=== PATIENT | male | born 1950 | race Caucasian/White ===

== ENCOUNTER → 2017-07-24 13:17 | Outpatient (POV) | payer MEDICARE, SELFPAY | PROVIDERS: Visit Provider Dermatology | DX: Z00.00 Encounter for general adult medical examination without abnormal findings (principal) ==

== ENCOUNTER → 2018-12-28 16:15 | Outpatient (CLI) | payer MEDICARE, SELFPAY ==
[2018-12-28 17:24] LABS: Anion Gap 14.4 mEq/L (5-15); Blood Urea Nitrogen 19 mg/dL (7-18); Calcium 9.3 mg/dL (8.5-10.1); Carbon Dioxide 27 mmol/L (21.0-32.0); Chloride 105 mmol/L (98-107); Creatinine,Serum 1.22 mg/dL (0.70-1.30); Estimated Glomerular Filt Rate 59 ml/min (>60); GFR (African American) 72 ML/MIN (>60); Glucose 150 mg/dL (74-106); Potassium 4.4 mmoL/L (3.5-5.1); Sodium 142 mmol/L (136-145)
== END ==
PROVIDERS: Visit Provider Nurse Practitioner
DX: E87.5 Hyperkalemia (principal)
CPT/HCPCS: 36415; 80048

== ENCOUNTER → 2020-04-25 07:03 | Outpatient (CLI) | payer MEDICARE, SELFPAY ==
--- NOTE | 2020-04-25 | CA_ITS ---
APPROVED REPORT Exam: Pharmacologic Technologist: Ana Rosa Vance Ht: 5 ft 10 in Wt: 204 lbs BSA: 2.10 m2 HR: 64 bpm BP: 140/79 mmHg Indications: Abnormal EKG Medical History Medications: Lisinopril,,,,, Aspirin,,,,, Stress Test Details Test: LEXISCAN HR Resting HR: 67 bpm Max Heart Rate (APMHR): 152 bpm Max HR Achieved: 127 bpm Target HR (85% APMHR): 129 bpm % of APMHR: 83 Recovery HR: 71 bpm BP Resting BP: 140.0/79.0 mmHg Max BP: 165.0/96.0 mmHg Recovery BP: 135.0/83.0 mmHg ECG Clinical Exercise duration: 04:00 min Highest Stage Achieved: Stress ECG Conclusion Resting EKG: Normal sinus rhythm, right axis deviation, LPFB Symptoms: Mild shortness of air and malaise. Arrhythmias/Ectopy: None ST-T Changes: No significant changes. Conclusion: Unremarkable Lexiscan stress. Myoview images reported separately. Test Summary RECOVERY 03:21 . . 72 . 135/ 83 . . REST 05:41 . . 67 . 140/ 79 . . Stage 1 . . . . . . . Myoview Injected Stage 1 01:00 . . 120 . . . . Stage 2 01:00 . . 112 . 162/ 93 . . Stage 3 01:00 . . 91 . 165/ 96 . . Stage 4 01:00 . . 80 . 153/ 90 . Stop exercise at 04:00 RECOVERY 01:00 . . 77 . 144/ 81 . . RECOVERY 02:00 . . 74 . 144/ 81 . . RECOVERY 03:00 . . 73 . 135/ 83 . . RECOVERY 03:21 . . 72 . 135/ 83 . . Electronically signed by : Josh Melendez, 04/26/2020 06:19:03
--- NOTE | 2020-04-25 07:03 | NM_ITS ---
APPROVED REPORT Exam: Nuclear Stress Test Indication: Abnormal EKG, SOB, Syncope, HTN, Family history Patient Location: Outpatient Stress Tech: Ana Rosa Vance LA Tech:Lise Alcantar, ARRT, RT (R)(N) Ht: 5 ft 10 in Wt: 204 lbs HR: 64 bpm BP: 140/79 mmHg BSA: 2.10 m2 BMI: 29.2 History: Abnormal EKG, SOB, Syncope, HTN, Family history Procedure: Patient received a 0.4 mg of intravenous Lexiscan, resting heart rate 64 bpm, resting blood pressure 140/79 mmHg, with Lexiscan maximum heart rate achived was 95 bpm which is Less than 85 % of the maximum predicted heart rate and blood pressure was 165/96 mmHg. With Lexiscan, patient denied any complaint of chest pain. Electrocardiogram Resting electrocardiogram showed sinus rhythm nonspecific ST-T changes, with Lexiscan there is less than 1.[address] segment depression noted from the baseline EKG. The EKG portion of the Lexiscan is nondiagnostic. Cardiac Stress and Resting SPECT Images: Cardiac Stress and Resting SPECT images were obtained using technetium 99m Myoview 30.3 mCi stress and 10.12 mCi at rest. Gated SPECT for analysis of segmental wall motion and calculation of the ejection fraction also done. Cardiac stress and resting SPECT images show moderate size reversible ischemia involving the anterior apical wall, computer derived ejection fraction 53% with moderate anterior apical wall hypokinesis. Right ventricle is normal size and contractility. Conclusion: 1. The EKG portion of the Lexiscan is nondiagnostic. 2. Scintigraphic evidence of moderate-sized area of reversible ischemia involving the anterior apical wall, computer derived ejection fraction 53% with segmental wall motion abnormality described above, right ventricle is normal size and contractility. 3. Abnormal Lexiscan Myoview study. Electronically signed by : Josh Melendez, 04/26/2020 06:29:41
--- NOTE | 2020-04-25 07:57 | CA_ITS ---
APPROVED REPORT EXAM: Comprehensive 2D, Doppler, and color-flow Echocardiogram Linen Room Custodian: Britni Johnson, RT(R) Ht: 5 ft 10 in Wt: 204lbs BSA: 2.10 BP: 138/82 mmHg Indications: HTN, SOB, GONZALEZ, dizziness, hx of CVA 2D Dimensions LVOT 2.20 cm (M/F) 1.5-2.5 M-Mode Dimensions RVDd 3.58 cm (0.9-2.6) LA Diam 3.79 cm (1.9-4.0) LVDd 4.10 cm (3.5-5.7) Ao Diam 2.54 cm (2.0-3.7) LVDs 3.14 cm (3.5-5.7) IVSd 1.05 cm (0.6-1.1) PWd 0.80 cm (0.6-1.1) EF (Teich) 47.30% FS 23.40% EDV (Teich) 74.20 mL ESV (Teich) 39.10 mL LV Diastology E Decel Time 150.00 (160-240 msec) E/A Ratio 0.6 MED E' 6.00 (< 7 cm/sec) E'/MED E' Ratio 8.57 (>14) LAT E' 6.10 (<10 cm/sec) E/LAT E' Ratio 8.43 (>14) Mitral Valve MV E Max Joseph. 51.00 (40-130 cm/s) MV A Velocity 79.00 (40-130 cm/s) E/A Ratio 0.65 MV Decel. Time 150.00 (160-240 ms) MV PHT 44.00 ms Tricuspid Valve TR P. Velocity 248.00 cm/s RAP Estimate 15.00 mmHg RVSP 39.60 mmHg Left Ventricle Left atrium is mildly enlarged, left ventricle is normal size, mild concentric left ventricular hypertrophy seen, visually estimated ejection fraction 55% with no regional wall motion abnormality, grade 1 diastolic dysfunction seen without tissue Doppler evidence of raise left atrial pressure. Right Ventricle Right atrium and right ventricle are normal size and contractility. Aortic Valve Aortic valve is thickened and calcified leaflet chordae display good mobility, there is no aortic stenosis or aortic insufficiency. Mitral Valve Mitral valve is grossly normal, there is mild mitral regurgitation. Tricuspid Valve Tricuspid valve grossly normal, there is mild tricuspid regurgitation, tricuspid regurgitation jet velocity is inadequate for calculation of the right ventricular systolic pressure. Pulmonic Valve Pulmonic valve is poorly visualized. Great Vessels Aortic root is normal size. Pericardium No significant pericardial effusion noted. Conclusion 1. Mildly enlarged left atrium, normal left ventricular size, mild concentric left ventricular hypertrophy, visually estimated ejection fraction 55% with no regional wall motion abnormality, grade 1 diastolic dysfunction seen without tissue Doppler evidence of raise left atrial pressure. 2. Thickened and calcified aortic valve without aortic stenosis or aortic insufficiency. 3. Mild mitral and tricuspid regurgitation. 4. No significant pericardial effusion noted. Electronically signed by : Josh Melendez, 04/26/2020 05:56:45
--- NOTE | 2020-04-25 09:15 | HMH.ITSHM ---
Current Home Medications as stated by this patient Derrick Roach or retail representative. []ASA LISINOPRIL
== END ==
PROVIDERS: PCP Nurse Practitioner Family; Visit Provider Physician Assistant
DX: I10 Essential (primary) hypertension (principal); R06.00 Dyspnea, unspecified; R42 Dizziness and giddiness; R55 Syncope and collapse; R94.31 Abnormal electrocardiogram [ECG] [EKG]
CPT/HCPCS: 78452; 93017; 93306; A9502; J2785

== ENCOUNTER → 2020-05-02 11:56 | Outpatient (CLI) | payer MEDICARE, SELFPAY ==
[2020-05-02 12:44] LABS: Basophils # 0.1 K/mm3 (0-0.2); Basophils % 0.7 % (0.1-2.0); Eosinophils # 0.1 K/mm3 (0.0-0.4); Eosinophils % 1.9 % (0.1-12.0); Hematocrit 52.6 % (42.0-52.0); Hemoglobin 17.5 g/dL (14.1-18.0); Lymphocytes # 1.4 K/mm3 (0.7-4.5); Lymphocytes % 19.3 % (10-50); Mean Corpuscular HGB Conc 33.2 g/dL (31.8-35.4); Mean Corpuscular Hemoglobin 32.1 pg (27.0-31.2); Mean Corpuscular Volume 96.4 fl (80-94); Mean Platelet Volume 8.2 fl (7.4-10.4); Monocytes # 0.4 K/mm3 (0.1-1.0); Monocytes % 5.6 % (1.7-9.3); Neutrophils # 5.2 K/mm3 (1.8-7.8); Neutrophils % 72.5 % (37.0-80.0); Platelet Count 163 K/mm3 (142-424); Red Blood Count 5.46 M/mm3 (4.60-6.20); Red Cell Distribution Width 13.6 % (11.5-17.5); White Blood Count 7.2 K/mm3 (4.8-10.8)
[2020-05-02 13:23] LABS: Chloride 99 mmol/L (98-107); Potassium 4.9 mmoL/L (3.5-5.1); Sodium 136 mmol/L (136-145)
[2020-05-02 13:26] LABS: Anion Gap 17.9 mEq/L (5-15); Blood Urea Nitrogen 24 mg/dl (9-20); Calcium 9.7 mg/dl (8.4-10.2); Carbon Dioxide 24 mmol/L (22.0-30.0); Estimated Glomerular Filt Rate 67 ml/min (>60); GFR (African American) 81 ML/MIN (>60)
[2020-05-02 13:32] LABS: Glucose 450 mg/dl (74-100)
[2020-05-02 13:58] LABS: Coronavirus 19 IgG Antibody Negative (Negative); Coronavirus 19 IgM Antibody Negative (Negative)
== END ==
PROVIDERS: Visit Provider Physician Assistant
DX: R94.31 Abnormal electrocardiogram [ECG] [EKG] (principal); R94.39 Abnormal result of other cardiovascular function study; Z01.818 Encounter for other preprocedural examination; Z03.818 Encounter for observation for suspected exposure to other biological agents ruled out
CPT/HCPCS: 36415; 80048; 85025; 86328

== ENCOUNTER 2020-05-04 08:05 | Day surgery (SDC) | payer MEDICARE, SELFPAY ==
[2020-05-04] VITALS (12 sets, daily range): BP systolic 101–168; BP diastolic 61–95; PULSE 63–79; RESP 16–18; TEMP 36.6; O2SAT 91–96; BMI 29.2
--- NOTE | 2020-05-04 07:02 | IR_ITS ---
APPROVED REPORT Patient Location: Outpatient Health And Safety Director: MRACIA Albrecht RT (R) PROCEDURES Selective coronary angiogram INDICATION Abnormal Myoview, Angina pectoris Informed consent was obtained prior to the procedure. COMPLICATIONS None Estimated Blood Loss: less than 10ml TECHNIQUE One percent lidocaine used to anesthetize the right anterior aspect of the wrist. The right radial artery was accessed via the Seldinger technique. A 6 Croatian sheath was placed in the right radial artery. 2.5 mg of verapamil, 800 mcg of nitroglycerin, 1mg Lidocaine and 5000 U Heparin were given through the arterial sheath. The trap catheter was also used to perform left heart catheterization, left ventriculogram and selective coronary angiogram. At the end of the procedure the sheath was removed good hemostasis was achieved using Traclet band, patient was transferred to the postop holding area in stable condition. ANGIOGRAPHIC RESULTS The left main artery Normal The left anterior descending artery Has proximal 20% stenoses. Beginning the mid section there are 30 and 40% stenoses followed by a concentric 80% 15 mm tandem stenosis and a vessel that is 2 mm in diameter. Distally as the LAD approaches the apex greater than 90% stenosis is present. Distal to the stenosis the vessel hits the apex. It appears as though some left to left collaterals may be forming apically from a large circumflex artery The circumflex artery Is a dominant vessel and gives rise to a 2 mm ramus intermedius which is diseased at its ostium and then has a proximal 90% stenosis. This is a 2 mm vessel and moderate in size. The vessel is tortuous and has mid vessel 40% stenoses. The right coronary artery Is nondominant yet still a large vessel and has mid vessel 40 to 50% stenoses. The ORTEZ ventriculogram reveals Not performed The left ventricular end-diastolic pressure Not measured IMPRESSION Severe mid and distal LAD stenosis as described in segments which are 2 mm and less in diameter. Severe stenosis in a proximal 2 mm moderate sized ramus intermedius in which moderate disease extends back into the ostium of the ramus intermedius. Moderate disease in the right coronary PLAN 1. I recommend medical management at this time. The LAD midportion could theoretically be stented but I do not recommend it. Distally the severe stenosis would jeopardize flow through the mid LAD stent and increase the risk of stent thrombosis. It appears as though patient is already forming collaterals from the circumflex artery. 2. The distal LAD should never be touched percutaneously 3. The ramus intermedius theoretically could also be stented however the left main artery perfectly trifurcates into the large LAD large circumflex artery with the ramus intermedius perfectly originating in between these 2 great vessels. Stenting the ramus intermedius appropriately would cause plaque shift and jeopardize the LAD and circumflex artery. 4. Cardiac rehabilitation and physical therapy along with aggressive medical management is most warranted for this patient. I believe with statin therapy with a goal LDL less than 55 along with beta-blockers NEMESIO inhibitors etc. combined with a low impact cardiac regimen patient can appropriately collateralized the LAD and probably the ramus intermedius 5. Patient's anatomy does not provide for bypass surgery either due to the distal nature of the disease 6. Avoidance of tobacco products Electronically signed by : Miguel Hubbard, 05/04/2020 10:43:45
== END 2020-05-04 13:32 | disposition home or self-care (01) ==
PROVIDERS: PCP Nurse Practitioner Family; Visit Provider Internal Medicine
DX: R06.00 Dyspnea, unspecified (principal); R94.39 Abnormal result of other cardiovascular function study; I25.118 Atherosclerotic heart disease of native coronary artery with other forms of angina pectoris; I10 Essential (primary) hypertension; E11.9 Type 2 diabetes mellitus without complications; E78.5 Hyperlipidemia, unspecified; Z79.82 Long term (current) use of aspirin; Z79.84 Long term (current) use of oral hypoglycemic drugs; Z79.899 Other long term (current) drug therapy
CPT/HCPCS: 93458; 99152; C1725; C1769; J1644; Q9967

== ENCOUNTER 2020-05-23 09:08 | Outpatient (RCR) | payer MEDICARE, SELFPAY | END 2020-09-06 09:43 | disposition home or self-care (01) | LOC: PT 09:08 | PROVIDERS: Visit Provider Internal Medicine | DX: I25.10 Atherosclerotic heart disease of native coronary artery without angina pectoris (principal) | CPT/HCPCS: 93798 ==

== ENCOUNTER → 2020-05-24 14:31 | Outpatient (CLI) | payer MEDICARE, SELFPAY ==
[2020-05-24 16:04] VITALS: BMI 27.1
== END ==
PROVIDERS: PCP Family Medicine; Visit Provider Family Medicine
DX: Z71.3 Dietary counseling and surveillance (principal); E11.9 Type 2 diabetes mellitus without complications
CPT/HCPCS: 97802

== ENCOUNTER 2020-11-05 13:43 | Emergency (ER) | payer MEDICARE, SELFPAY ==
[2020-11-05 15:00] VITALS: BP 102/64; PULSE 58; RESP 19; TEMP 36.6; O2SAT 99; BMI 27.1
--- NOTE | 2020-11-05 15:08 | XR_ITS ---
PROCEDURE INFORMATION: Exam: XR Lumbosacral Spine Exam date and time: 11/05/2020 3:08 PM Age: 70 years old Clinical indication: Injury or trauma; Sprain or strain, lumbar ligaments; Patient HX: Low back pain after lifting yesterday. ; Additional info: Injured back lifting TECHNIQUE: Imaging protocol: XR of the lumbosacral spine. Views: 2 or 3 views. COMPARISON: No relevant prior studies available. FINDINGS: Bones/joints: Normal anatomic alignment. Vertebral body heights are well preserved. There is no significant disc space narrowing. Multilevel anterior osteophytes are appreciated. The spinal canal is patent. No aggressive osseous lesions. Soft tissues: There is no significant soft tissue swelling. Other findings: There is no evidence of acutely displaced fractures. There is no evidence of joint dislocation. IMPRESSION: Negative for acute skeletal pathology.
--- NOTE | 2020-11-05 15:58 | HMH.EDUTC ---
[facility] Disposition Clinical Impression: Low back pain Qualifiers: Chronicity: unspecified Back pain laterality: unspecified Sciatica presence: without sciatica Qualified Code(s): M54.5 - Low back pain Disposition: Home, Self-Care Condition on Discharge: Good Instructions: Low Back Pain, DI for Low Back Pain, Methocarbamol, DI for Muscle Spasm Additional Instructions: *Ibuprofen cassie 6 hours with meal as needed for pain/inflammation if your Doctor has told you that you can take it *Not additional anti-inflammatory like motrin, aleve, advil with the above amount of ibuprofen. You can still take Tylenol every 4 hours as needed if you need something else for pain *Ice 20 minutes every 2 hours for the first 48 hours after the initial injury followed by moist heat every 20 minutes 3-4 times a day to affected area *Muscle relaxer as prescribed as needed for muscle spasms but remember, it WILL cause drowsiness You cannot take it and drive, operate machinery or care for small children. *Keep this area active, no movement leads to more stiffness, However take it easy and avoid heavy lifting pushing or pulling *Follow up with you family doctor if no improvement for further treatment Prescriptions: methocarbamoL [Methocarbamol 500mg Tablet] 500 mg PO BID PRN #15 tab PRN Reason: Muscle Spasm Transmission Status: Received by [id number] Referrals: Derrick Harrell MD [Primary Care Provider] - As needed Time of Disposition: 16:31 Medical Decision Making - Rickie Inquiry Pt receiving controlled substance: No Rickie was queried for this patient: No Vital Signs: 11/05/20 15:00 11/05/20 16:13 Temperature 97.8 F 97.8 F Temperature Source Oral Pulse Rate 58 L Pulse Rate [Right Brachial] 58 L Respiratory Rate 19 19 Blood Pressure 102/64 L Blood Pressure [Right Arm] 102/64 L Blood Pressure Mean [Right Arm] 76 Blood Pressure Source [Right Arm] Automatic Cuff Blood Pressure Position [Right Arm] Sitting 02 Sat by Pulse Oximetry 99 Oxygen Delivery Method Room Air Orders (Tests/Meds): ED MEDICATIONS Discontinued Medications Generic Name Dose Route Start Last Admin Trade Name Freq PRN Reason Stop Dose Admin Methylprednisolone Sodium Succinate 125 mg 11/05/20 16:06 11/05/20 16:11 Methylprednisolone Sod Succ 125mg Vial IM 11/05/20 16:07 125 mg ONCE ONE Administration - Radiology Data #1 Image(s): L-Spine Image Reviewed: Yes I reviewed the patient's radiology image Preliminary Findings: No Fracture Seen will have patient call back for official reading of xray [facility] HPI - General Stated complaint: back pain middle of back Time Seen by Provider: 11/05/20 15:59 Mode of Arrival: Ambulatory Source of Information: Patient Limitations: No Limitations Description of Symptoms (Recalled from Triage Doc. 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 AND THINKS HE PULLED A MUSCLE IN HIS LOWER BACK HEENT Symptoms (Recalled from RN notes): No Resp Symptoms (Recalled from RN notes): No Skin Symptoms (Recalled from RN notes): No MS Symptoms (Recalled from RN notes): Yes Functional Status (Recalled from RN notes): WNL - History of Present Illness Provider Complaint: Patient states that he thinks he pulled a muscle in his lower back State that he has had previous back problems State that yesterday he bent over to clam picker something for the tractor when he felt something pull in his lower back area States that ever since he has been having muscle spasm like pain and pain when he tries to go from standing to sitting or sitting to standing States that feels like it did when he pulled muscle before Denies loss of control of bowel or bladder - Related Data Home Medications Medication Instructions Recorded Confirmed aspirin 81 mg tablet,delayed 81 mg PO DAILY 04/18/20 11/05/20 release glipizide 5 mg tablet 5 mg PO DAILY tab 05/10/20 11/05/20 metformin 500 mg tablet 5
[2020-11-05 16:13] VITALS: BP 102/64; PULSE 58; RESP 19; TEMP 36.6; O2SAT 99
--- NOTE | 2020-11-05 17:33 | PC.NURSE ---
PATIENT NOTIFIED OF XRAY RESULTS/READING AT THIS TIME. PATIENT INSTRUCTED TO TAKE PRESCRIBED MEDICATIONS DIRECTED AND FOLLOW-UP WITH PCP IF NO IMPROVEMENT. PATIENT VERBALIZED UNDERSTANDING
== END 2020-11-05 16:30 | disposition home or self-care (01) ==
PROVIDERS: Emergency Provider Nurse Practitioner; PCP Family Medicine
DX: M54.5 Low back pain (principal); E11.9 Type 2 diabetes mellitus without complications; I25.10 Atherosclerotic heart disease of native coronary artery without angina pectoris; I10 Essential (primary) hypertension; E78.5 Hyperlipidemia, unspecified
CPT/HCPCS: G0463; 72100; 96372; 99202

== ENCOUNTER → 2021-05-29 08:57 | Outpatient (CLI) | payer MEDICARE, SELFPAY ==
[2021-05-29 10:20] LABS: Alanine Aminotransferase 24 U/L (12-78); Albumin Level 4.3 g/dl (3.5-5.0); Alkaline Phosphatase 56 U/L (38-126); Aspartate Amino Transferase 27 U/L (17-59); Bilirubin,Direct 0.3 mg/dl (0.0-0.4); Bilirubin,Indirect 0.3 mg/dL (0.0-0.9); Bilirubin,Total 0.6 mg/dl (0.2-1.3); Bilirubin,Unconjugated 0.3 mg/dL (0.0-1.1); Chol/HDL Ratio 3.2 (1-3.5); Cholesterol 106 mg/dl (140-200); HDL Cholesterol 33 mg/dl (40-60); Total Protein,Serum 7.2 g/dl (6.3-8.2); Triglycerides 57 mg/dl (30-150); VLDL Cholesterol 11 mg/dL (0-40)
[2021-05-29 10:31] LABS: Direct LDL Cholesterol 63.64 mg/dL (100-129)
== END ==
PROVIDERS: Visit Provider Nurse Practitioner Family
DX: E11.9 Type 2 diabetes mellitus without complications (principal); E78.5 Hyperlipidemia, unspecified; I10 Essential (primary) hypertension; I25.10 Atherosclerotic heart disease of native coronary artery without angina pectoris; R00.1 Bradycardia, unspecified; Z79.84 Long term (current) use of oral hypoglycemic drugs
CPT/HCPCS: 36415; 80061; 80076

== ENCOUNTER → 2022-09-02 08:48 | Outpatient (CLI) | payer MEDICARE, SELFPAY ==
[2022-09-07 00:07] LABS: Testosterone, Total, LC/MS 391.7 ng/dL (264.0-916.0); Testosterone,Free 4.4 pg/mL (6.6-18.1)
== END ==
PROVIDERS: PCP Nurse Practitioner Family; Visit Provider Nurse Practitioner Family
DX: R53.1 Weakness (principal); E29.1 Testicular hypofunction
CPT/HCPCS: 36415; 82533; 84402; 84403

== ENCOUNTER → 2022-09-09 07:32 | Outpatient (CLI) | payer MEDICARE, SELFPAY | PROVIDERS: PCP Nurse Practitioner Family; Visit Provider Internal Medicine | DX: I51.89 Other ill-defined heart diseases (principal); R06.00 Dyspnea, unspecified; R53.1 Weakness | CPT/HCPCS: 93306 ==

== ENCOUNTER → 2022-10-14 15:21 | Outpatient (CLI) | payer MEDICARE, SELFPAY ==
--- NOTE | 2022-10-14 15:35 | XR_ITS ---
FINAL REPORT CLINICAL HISTORY: SOA, recent stroke. COMPARISON: 12/26/2018 FINDINGS: Two views of the chest were obtained. The heart size and pulmonary vascularity are within normal limits. The mediastinum is normal. No acute pulmonary abnormality is identified. There is no pneumothorax. The bony thorax is intact. IMPRESSION: No active cardiopulmonary disease. Reviewed, Interpreted and Dictated by Nate Acuna III, MD Transcribed by Stephanie Yi Authenticated and [facility]
[2022-10-14 16:11] LABS: Basophils % 0.5 % (0.1-2.0); Eosinophils # 0.1 K/mm3 (0.0-0.4); Eosinophils % 1.7 % (0.1-12.0); Hematocrit 44.8 % (42.0-52.0); Hemoglobin 14.8 g/dL (14.1-18.0); Lymphocytes # 1.7 K/mm3 (0.7-4.5); Lymphocytes % 20.3 % (10-50); Mean Corpuscular HGB Conc 33.1 g/dL (31.8-35.4); Mean Corpuscular Volume 93.6 fl (80-94); Mean Platelet Volume 7.9 fl (7.4-10.4); Monocytes # 0.6 K/mm3 (0.1-1.0); Monocytes % 7.3 % (1.7-9.3); Neutrophils # 5.7 K/mm3 (1.8-7.8); Neutrophils % 70.2 % (37.0-80.0); Platelet Count 197 K/mm3 (142-424); Red Blood Count 4.78 M/mm3 (4.60-6.20); Red Cell Distribution Width 13.7 % (11.5-17.5); White Blood Count 8.2 K/mm3 (4.8-10.8)
[2022-10-14 17:10] LABS: NT Pro Brain Natriuretic Pep. 245 pg/mL (0-125)
== END ==
PROVIDERS: PCP Nurse Practitioner Family; Visit Provider Nurse Practitioner Family
DX: R06.02 Shortness of breath (principal); R60.0 Localized edema
CPT/HCPCS: 36415; 71046; 83880; 85025

== ENCOUNTER → 2022-10-24 09:59 | Outpatient (CLI) | payer MEDICARE, SELFPAY ==
--- NOTE | 2022-10-24 | US_ITS ---
FINAL REPORT CLINICAL HISTORY: DM, HTN, HLD, tingling sensations in legs FINDINGS: BILATERAL ANKLE BRACHIAL INDICES HISTORY: Claudication. Pressure indices are as follows are: RIGHT LOWER EXTREMITY Ankle brachial pressure index: 1.2 Toe brachial pressure index: 0.65 COMMENTS: Normal LEFT LOWER EXTREMITY Ankle brachial pressure index: 1.2 Toe brachial pressure index: 0.65 COMMENTS: Normal IMPRESSION: No evidence of significant obstructive peripheral vascular disease of the lower extremities. Reviewed, Interpreted and Dictated by Chris Nuñez MD Transcribed by Maryellen Stafford Authenticated and . [facility]
--- NOTE | 2022-10-24 10:04 | CA_ITS ---
FINAL REPORT TECHNIQUE: Color Doppler, duplex Doppler and denton scale sonography of the bilateral neck arterial vasculature was performed. Velocities were measured in the carotid arteries. Stenosis evaluation based on the validated velocity criteria. CLINICAL HISTORY: DIZZINESS,HTN,HLD,HX CVA FINDINGS: The peak systolic velocity of the right common carotid artery is 114 cm/s. The peak systolic velocity of the right internal carotid artery is 96 cm/s and end diastolic velocity 25 cm/s. The ICA/CCA ratio is 1.3. A moderate amount of plaque is present. The right external carotid artery is patent. The right vertebral artery is patent with antegrade flow. The peak systolic velocity of the left common carotid artery is 70 cm/s. The peak systolic velocity of the left internal carotid artery is 245 cm/s and end diastolic velocity 27 cm/s. The ICA/CCA ratio is 3.5. A moderate amount of plaque is present. The left external carotid artery is patent.The left vertebral artery is patent with antegrade flow. IMPRESSION: Less than 50% stenosis on the right. 50-69% stenosis on the left. Bilateral patent vertebral arteries with antegrade flow. If indicated, CTA or MRA could further evaluate. Reviewed, Interpreted and Dictated by Chris Nuñez MD Transcribed by Stephanie Yi Authenticated and [facility]
--- NOTE | 2022-10-24 10:42 | MR_ITS ---
FINAL REPORT CLINICAL HISTORY: LOSS OF COORDINATION, LIGHTHEADEDNESS. STROKE FINDINGS: Multi planar MR imaging was obtained through the brain without contrast. The midline structures appear intact. There is no evidence of Chiari malformation. There is extensive confluent abnormal signal in the deep white matter bilaterally, probably due to chronic microvascular ischemia. There is an old lacunar infarct in the right covarrubias radiata. There are few small areas of T2 shine through on the diffusion-weighted images. No corresponding foci of decreased signal is seen on the ADC map images. There is abnormal signal throughout the right maxillary sinus consistent with chronic sinusitis. There are also mild changes of chronic left mastoiditis. The seventh and eighth nerve root complexes are intact. IMPRESSION: Extensive confluent signal in the deep white matter bilaterally probably due to chronic microvascular ischemia. No definite acute abnormality. Chronic right maxillary sinusitis and chronic left mastoiditis. Reviewed, Interpreted and Dictated by Chris Nuñez MD Transcribed by Stephanie Yi Authenticated and [facility]
== END ==
PROVIDERS: PCP Nurse Practitioner Family; Visit Provider Nurse Practitioner Family
DX: R42 Dizziness and giddiness (principal); I70.213 Atherosclerosis of native arteries of extremities with intermittent claudication, bilateral legs
CPT/HCPCS: 70551; 93880; 93923; 93924

== ENCOUNTER 2022-11-14 05:38 | Emergency (ER) | payer MEDICARE, SELFPAY ==
[2022-11-14] VITALS (7 sets, daily range): BP systolic 135–155; BP diastolic 80–95; PULSE 55–84; RESP 16–20; TEMP 36.9; O2SAT 94–99; BMI 26.1
[2022-11-14 05:53] LABS: POC Glucose,Bedside 101 (70-110)
--- NOTE | 2022-11-14 05:59 | CT_ITS ---
FINAL REPORT TECHNIQUE: Thin section axial CT images with coronal reformats were obtained through the neck after the administration of IV contrast. This study was performed with techniques to keep radiation doses as low as reasonably achievable (ALARA). Individualized dose reduction techniques using automated exposure control or adjustment of mA and/or kV according to the patient''s size were employed. CLINICAL HISTORY: r/o mass, syncope COMPARISON: None FINDINGS: There is complete opacification of the right maxillary sinus. There is lobular mucoperiosteal thickening of the left maxillary sinus. There is no significant adenopathy or mass lesion present. The thyroid is unremarkable. Limited images of the lung apices are unremarkable. The glottis and supraglottic areas are unremarkable. The parotid and submandibular glands appear symmetric. No acute osseous abnormality is identified. IMPRESSION: No acute process. Sinus disease as described. Reviewed, Interpreted and Dictated by Chris Nuñez MD Transcribed by Lisa Staton Authenticated and [facility]
--- NOTE | 2022-11-14 05:59 | XR_ITS ---
FINAL REPORT CLINICAL HISTORY: Shortness of breath COMPARISON: 10/14/2022 FINDINGS: The heart size is normal. The mediastinum is normal. There is no focal infiltrate or edema. There are no pleural effusions. There is no pneumothorax. There is no osseous abnormality. IMPRESSION: No acute cardiopulmonary process Reviewed, Interpreted and Dictated by Chris Nuñez MD Transcribed by Lisa Staton Authenticated and . [facility]
--- NOTE | 2022-11-14 05:59 | CT_ITS ---
FINAL REPORT TECHNIQUE: multiple axial CT images were performed from the foramen magnum to the vertex without enhancement. CLINICAL HISTORY: syncope COMPARISON: None FINDINGS: The ventricles are enlarged. There is mild atrophy. There is extensive abnormal decreased signal throughout the deep white matter. There is no evidence of hemorrhage. No masses are identified. No evidence of mass effect or edema. No extra-axial fluid is seen. There is complete opacification of the right maxillary sinus. There is a lobulated mucoperiosteal thickening of the left maxillary sinus. IMPRESSION: Atrophy and chronic changes without acute process. Sinus disease as described. Reviewed, Interpreted and Dictated by Chris Nuñez MD Transcribed by Lisa Staton Authenticated and [facility]
--- NOTE | 2022-11-14 06:00 | HMH.EDSYNC ---
Discharge Plan Disposition Patient Disposition: Still a Patient Chief Complaint: Syncope Prescriptions Prescriptions: No Action glipizide 5 mg tablet 5 mg PO DAILY metformin 500 mg tablet 1,000 mg PO BID aspirin [Adult Low Dose Aspirin] 81 mg tablet,delayed release (DR/EC) 81 mg PO DAILY bisoprolol fumarate 5 mg tablet 2.5 mg PO DAILY atorvastatin 10 mg tablet 10 mg PO DAILY lisinopril 2.5 mg tablet 2.5 mg PO DAILY Referrals Follow up/Referrals: Guera Bermeo APRN [Primary Care Provider] - See instructions Clinical Impressions Clinical Impression: Syncope Instructions Patient Instructions: DI for Syncope in Adults (Fainting), DI for Syncope in Children (Fainting) Discharge ED Provider: Terri Mcmillan Syncope HPI General Chief Complaint: Syncope Stated Complaint: AO 11/14/22 03:45 Fall,diabetic Time Seen by Provider: 11/14/22 05:48 Mode of Arrival: Ambulatory Source of Information: Patient Limitations: No Limitations Description of Symptoms (Recalled from ER Triage Doc. by RN): pt states he took a drink this morning and passed out. pt states he woke up on the floor. pt denies any pain or injury. pt states this has been an ongoing issue 6-12 months. pt states he has a MRI, MRV, barium swallow and labs scheduled. pt is seeing his PCP, neuro, cardiology and ENT at this time for these episodes. History of Present Illness HPI narrative: Patient is a 72-year-old male who is here secondary to syncope. Patient apparently was drinking on some water and got choked. With getting choked on water he sometimes gets short of breath trying to catch his breath indexing he knew he went down on the ground face for and passed out. heard the noise went and found him on his knees and holding his arms up. No seizure activity was seen no bladder or bowel loss control. Denies any headache or neck pain. Denies any chest or abdominal pain or back pain. Patient's been having this episodes of choking occasionally when he drinks something. He is a long-term tobacco smoker. Patient has had a cardiac work-up with Dr. Hubbard and does have a 60 to 70% blockage in his neck. He is already had a cardiac cath which did not require any stents and echocardiogram which is normal. Patient does have history of hypertension diabetes, CVA, coronary artery disease and cva MD complaint: loss of consciousness Onset (ago): minute(s) Prodromal symptoms: none Witnessed: no Context: standing up Injuries sustained associated with event: none Current symptoms: back to baseline Treatments prior to arrival: none Related Data Home Medications Medication Instructions Recorded Confirmed aspirin 81 mg tablet,delayed 81 mg PO DAILY heart health 04/18/20 11/14/22 release (Adult Low Dose Aspirin) glipizide 5 mg tablet 5 mg PO DAILY Diabetes 05/10/20 11/14/22 bisoprolol fumarate 5 mg tablet 2.5 mg PO DAILY HTN 11/27/21 11/14/22 atorvastatin 10 mg tablet 10 mg PO DAILY HLD 06/05/22 11/14/22 metformin 500 mg tablet 1,000 mg PO BID Diabetes 11/12/22 11/14/22 lisinopril 2.5 mg tablet 2.5 mg PO DAILY HTN 11/14/22 11/14/22 Allergies Allergy/AdvReac Type Severity Reaction Status Date / Time No Known Allergies Allergy Verified 11/14/22 05:54 [facility] Disclaimer: The information contained in this section may have been updated after the patient was seen, as this information can be updated by other users. Family History (Updated 11/12/22 @ 13:02 by Anum Monteiro) Other Cancer Diabetes Stroke Social History Smoking Status: Never smoker alcohol intake: former substance use type: denies use current occupational status: other Travel in the last 8 weeks: None household members: spouse housing: house marital status: current occupational exposures/hazards: No caffeine: Yes ROS Obtained: Yes All systems reviewe
[2022-11-14 06:16] LABS: Basophils # 0.1 K/mm3 (0-0.2); Basophils % 0.5 % (0.1-2.0); Eosinophils # 0.4 K/mm3 (0.0-0.4); Hematocrit 45.1 % (42.0-52.0); Hemoglobin 14.9 g/dL (14.1-18.0); Lymphocytes # 1.8 K/mm3 (0.7-4.5); Lymphocytes % 19.3 % (10-50); Mean Corpuscular Hemoglobin 30.5 pg (27.0-31.2); Mean Corpuscular Volume 92.6 fl (80-94); Mean Platelet Volume 7.7 fl (7.4-10.4); Monocytes # 0.6 K/mm3 (0.1-1.0); Monocytes % 6.4 % (1.7-9.3); Neutrophils # 6.6 K/mm3 (1.8-7.8); Neutrophils % 69.8 % (37.0-80.0); Platelet Count 175 K/mm3 (142-424); Red Blood Count 4.87 M/mm3 (4.60-6.20); Red Cell Distribution Width 13.6 % (11.5-17.5); White Blood Count 9.5 K/mm3 (4.8-10.8)
[2022-11-14 06:22] LABS: Chloride 103 mmol/L (98-107); Potassium 4.5 mmoL/L (3.5-5.1); Sodium 140 mmol/L (136-145)
[2022-11-14 06:25] LABS: Alanine Aminotransferase 29 U/L (12-78); Albumin Level 4.4 g/dl (3.5-5.0); Albumin/Globulin Ratio 1.2 (1.1-1.8); Alkaline Phosphatase 64 U/L (38-126); Anion Gap 16.5 mEq/L (5-15); Aspartate Amino Transferase 34 U/L (17-59); Bilirubin,Total 0.6 mg/dl (0.2-1.3); Blood Urea Nitrogen 24 mg/dl (9-20); Carbon Dioxide 25 mmol/L (22.0-30.0); Creatinine Clearance Estimated 73 mL/min (50-200); Estimated Glomerular Filt Rate 66 ml/min (>60); GFR (African American) 80 ML/MIN (>60); Globulin 3.7 g/dL (1.3-3.2); Glucose 95 mg/dl (74-100); Total Protein,Serum 8.1 g/dl (6.3-8.2)
[2022-11-14 06:30] LABS: Activated Partial Thrombo Time 24.8 seconds (22.8-30.6); INR 0.99 (0.9-1.1); Prothrombin Time 10.7 seconds (10.1-12.5)
--- NOTE | 2022-11-14 06:40 | ECG_ITS ---
APPROVED REPORT Exam: Resting ECG HR:58 bpm ECG Measurements Heart Rate 58 AXES [place] 215 P 74 QRSd 98 QRS 11 QT 406 T 61 QTc 402 Conclusion SINUS BRADYCARDIA WITH FIRST DEGREE AV BLOCK WITH OCCASIONAL SUPRAVENTRICULAR PREMATURE COMPLEXES ABNORMAL ECG UNCONFIRMED REPORT Electronically signed by : Derrick Lang MD 11/14/2022 20:07:47
[2022-11-14 06:46] LABS: Troponin I < 0.01 ng/ml (0.00-0.034)
--- NOTE | 2022-11-14 07:11 | PC.NURSE ---
assumed care of pt from assembler 1st shift nurse
--- NOTE | 2022-11-14 07:17 | PC.NURSE ---
pt to radiology
--- NOTE | 2022-11-14 07:33 | PC.NURSE ---
back from ct
--- NOTE | 2022-11-14 07:49 | PC.NURSE ---
pt to restroom
--- NOTE | 2022-11-14 08:25 | PC.NURSE ---
notified ER pt rad results are in the computer
--- NOTE | 2022-11-14 08:35 | HMH.EDSYNC ---
Discharge Plan Disposition Patient Disposition: Home, Self-Care Prescriptions Prescriptions: No Action glipizide 5 mg tablet 5 mg PO DAILY metformin 500 mg tablet 1,000 mg PO BID aspirin [Adult Low Dose Aspirin] 81 mg tablet,delayed release (DR/EC) 81 mg PO DAILY bisoprolol fumarate 5 mg tablet 2.5 mg PO DAILY atorvastatin 10 mg tablet 10 mg PO DAILY lisinopril 2.5 mg tablet 2.5 mg PO DAILY Referrals Follow up/Referrals: Guera Bermeo APRN [Primary Care Provider] - See instructions Clinical Impressions Clinical Impression: Syncope Instructions Patient Instructions: DI for Syncope in Adults (Fainting), DI for Syncope in Children (Fainting) Discharge ED Provider: Braeden Wetzel Syncope HPI General Chief Complaint: Syncope Stated Complaint: AO 11/14/22 03:45 Fall,diabetic Time Seen by Provider: 11/14/22 05:48 Mode of Arrival: Ambulatory Source of Information: Patient Limitations: No Limitations Description of Symptoms (Recalled from ER Triage Doc. by RN): pt states he took a drink this morning and passed out. pt states he woke up on the floor. pt denies any pain or injury. pt states this has been an ongoing issue 6-12 months. pt states he has a MRI, MRV, barium swallow and labs scheduled. pt is seeing his PCP, neuro, cardiology and ENT at this time for these episodes. History of Present Illness HPI narrative: Please see Dr. Mcmillan's note MD complaint: loss of consciousness Prodromal symptoms: none Context: standing up Injuries sustained associated with event: none Current symptoms: back to baseline Treatments prior to arrival: none Related Data Home Medications Medication Instructions Recorded Confirmed aspirin 81 mg tablet,delayed 81 mg PO DAILY heart health 04/18/20 11/14/22 release (Adult Low Dose Aspirin) glipizide 5 mg tablet 5 mg PO DAILY Diabetes 05/10/20 11/14/22 bisoprolol fumarate 5 mg tablet 2.5 mg PO DAILY HTN 11/27/21 11/14/22 atorvastatin 10 mg tablet 10 mg PO DAILY HLD 06/05/22 11/14/22 metformin 500 mg tablet 1,000 mg PO BID Diabetes 11/12/22 11/14/22 lisinopril 2.5 mg tablet 2.5 mg PO DAILY HTN 11/14/22 11/14/22 Allergies Allergy/AdvReac Type Severity Reaction Status Date / Time No Known Allergies Allergy Verified 11/14/22 05:54 [facility] Disclaimer: The information contained in this section may have been updated after the patient was seen, as this information can be updated by other users. Family History (Updated 11/12/22 @ 13:02 by Anum Monteiro) Other Cancer Diabetes Stroke Social History Smoking Status: Never smoker alcohol intake: former substance use type: denies use current occupational status: other Travel in the last 8 weeks: None household members: spouse housing: house marital status: current occupational exposures/hazards: No caffeine: Yes ROS Obtained: Yes All systems reviewed & no additional complaints except as documented Physical Exam General General appearance: alert and in distress Head Head exam: atraumatic and normocephalic Respiratory Respiratory exam: Present normal lung sounds bilaterally Cardiovascular Cardiovascular exam: Present regular rate and normal rhythm Neurological Exam Neurological exam: Present alert and oriented X3 Medical Decision Making Medical Records MR Comment: 72-year-old white male had episode of syncope today most of the documentation is per Dr. Mcmillan note. All his labs etc. have been reviewed at the time shift change only the CT was pending. CT revealed no urgent pathology but did reveal opacification of the sinus. The patient is scheduled for several evaluations with several specialties. In fact he just saw the open hearth worker yesterday. We have at this time found no emergent reason for admission or consultation. Patient himself is doing well and will be allowed
[2022-11-14 09:07] LABS: Chol/HDL Ratio 3.9 (1-3.5); Cholesterol 137 mg/dl (140-200); HDL Cholesterol 35 mg/dl (40-60); Triglycerides 58 mg/dl (30-150); VLDL Cholesterol 12 mg/dL (0-40)
[2022-11-14 09:18] LABS: C-Reactive Protein 0.8 mg/L (0-4)
[2022-11-14 09:38] LABS: Thyroid Stimulating Hormone 5.29 uIU/mL (0.465-4.68)
[2022-11-14 09:42] LABS: Erythrocyte Sedimentation Rate 18 mm/hr (0-20)
[2022-11-14 10:13] LABS: Vitamin B12 217 pg/mL (239-931)
[2022-11-14 10:18] LABS: Folate 5.33 ng/mL
[2022-11-15 10:37] LABS: Rapid Plasma Reagin Ab Titer Non Reactive (NonRea<1:1)
== END 2022-11-14 08:54 | disposition home or self-care (01) ==
PROVIDERS: Emergency Medicine; Nurse Practitioner Family; Emergency Provider Emergency Medicine; PCP Nurse Practitioner Family
DX: R55 Syncope and collapse (principal); E11.9 Type 2 diabetes mellitus without complications; I25.10 Atherosclerotic heart disease of native coronary artery without angina pectoris; F17.290 Nicotine dependence, other tobacco product, uncomplicated; I49.1 Atrial premature depolarization; W19.XXXA Unspecified fall, initial encounter; Z86.73 Personal history of transient ischemic attack (TIA), and cerebral infarction without residual deficits
CPT/HCPCS: 70450; 70491; 71045; 80053; 80061; 82607; 82746; 82962; 84443; 84484; 85025; 85610; 85651; 85730; 86140; 86593; 93005; 99285; Q9967

== ENCOUNTER → 2022-11-15 08:49 | Outpatient (CLI) | payer MEDICARE, SELFPAY ==
--- NOTE | 2022-11-15 09:38 | RESP.PFTSS ---
PATIENT WAS UNABLE TO PERFORM ANY PFT TESTING. MULTIPLE ATTEMPTS WERE GIVEN.
== END ==
PROVIDERS: PCP Nurse Practitioner Family; Visit Provider Nurse Practitioner Family
DX: E11.9 Type 2 diabetes mellitus without complications (principal); E78.2 Mixed hyperlipidemia; H70.92 Unspecified mastoiditis, left ear; I10 Essential (primary) hypertension; I25.10 Atherosclerotic heart disease of native coronary artery without angina pectoris; I65.29 Occlusion and stenosis of unspecified carotid artery; L98.9 Disorder of the skin and subcutaneous tissue, unspecified; R06.09 Other forms of dyspnea; R13.10 Dysphagia, unspecified; R26.89 Other abnormalities of gait and mobility; R47.1 Dysarthria and anarthria; R49.8 Other voice and resonance disorders; R53.83 Other fatigue; Z85.828 Personal history of other malignant neoplasm of skin; Z86.73 Personal history of transient ischemic attack (TIA), and cerebral infarction without residual deficits; Z79.84 Long term (current) use of oral hypoglycemic drugs
CPT/HCPCS: 94618; 94762

== ENCOUNTER → 2022-11-18 12:08 | Outpatient (CLI) | payer MEDICARE, SELFPAY ==
--- NOTE | 2022-11-18 12:08 | FL_ITS ---
FINAL REPORT CLINICAL HISTORY: . 2:01 fluoro time FINDINGS: MODIFIED BARIUM SWALLOW History: Dysphagia FINDINGS: Fluoroscopy was provided for the speech pathologist to evaluate the swallowing mechanism. The patient was given several different consistencies of barium while the swallow was visualized fluoroscopically. The report of the speech pathologist should be consulted prior to making dietary decisions. FLUOROSCOPY TIME: 2 minutes IMPRESSION: Modified barium swallow under fluoroscopic guidance. Please see the report of the speech pathologist for Dietary recommendations. Films reviewed , interpreted and dictated by Dr. Acuna Transcribed by Kulwant Woodard PA-C. Reviewed, Interpreted and Dictated by Nate Acuna III, MD Transcribed by BINH Calderon Authenticated and [facility]
--- NOTE | 2022-11-18 14:16 | HMH.SLMBS2 ---
Speech & Language Evaluation Speech/Language Mod Barium Swallow Start: 11/18/22 13:55 Freq: once Status: Complete Protocol: Document 11/18/22 13:55 [facility] (Rec: 11/18/22 14:16 ROCÍO [id number]) General Information General Current Food Consistency Regular,Thin Liquids Dentition Upper Only Oxygen Status Room Air Facial Symmetry Symmetrical Patient Orientation Person,Place,Time,Situation Ability to Follow Directions Excellent Communication Ability No Impairment MBS Recommendations Diet Dietary Recommendations Regular,Thin Liquids Treatment/Strategies Strategy/Precaution Recommend Sitting Upright (90 deg),Small Bites and Sips,Alternate Liquids/Solids Mod Barium Swallow Impressions Summary and Impressions Oral Phase Impression Minimal Impairment Oral Phase Summary Minimal impairment for oral phase of swallow. Pt demonstrated mildly prolonged mastication on mechanical soft and regular trials. Pt formed bolus well on all trials and AP transit was adequate on all trials. Oral residue with thin liquids was noted that prespilled to the vallecula, which was cleared by puree. Pt demonstrated premature spillage to the pyriform sinuses 2' reduced back of tongue control on thin liquid trial via straw. Pharyngeal Phase Impression Minimal Impairment Pharyngeal Phase Summary Minimal impairment of pharyngeal phase of swallow. No aspiration noted on the study. Transient penetration was noted on consecutive thin sips trial 2' mistiming, however, penetrated material clears the airway upon completion of the pharyngeal swallow with no residual penetrated material in the laryngeal vestibule. Mildly decreased hyolaryngeal elevation noted with all trials. Back of tongue retraction, epiglottic inversion, upper UES opening, and ph
== END ==
PROVIDERS: PCP Nurse Practitioner Family; Visit Provider Nurse Practitioner Family
DX: E11.9 Type 2 diabetes mellitus without complications (principal); E78.2 Mixed hyperlipidemia; I10 Essential (primary) hypertension; I25.10 Atherosclerotic heart disease of native coronary artery without angina pectoris; R06.09 Other forms of dyspnea; R13.10 Dysphagia, unspecified; R26.89 Other abnormalities of gait and mobility; R47.1 Dysarthria and anarthria; R49.8 Other voice and resonance disorders; R53.83 Other fatigue; Z86.73 Personal history of transient ischemic attack (TIA), and cerebral infarction without residual deficits
CPT/HCPCS: 70371; 92611

== ENCOUNTER → 2022-11-20 08:59 | Outpatient (CLI) | payer MEDICARE, SELFPAY ==
--- NOTE | 2022-11-20 08:59 | MR_ITS ---
FINAL REPORT CLINICAL HISTORY: eval for CVT 17 ml prohance FINDINGS: Multiple projection images of the brain venous vasculature was performed with and without contrast. The raw data images were also reviewed. The major venous sinuses appear patent without evidence of occlusion. No venous abnormality is identified. IMPRESSION: No abnormality identified of the brain venous vasculature. Reviewed, Interpreted and Dictated by Nate Acuna III, MD Transcribed by Stephanie Yi Authenticated and [facility]
--- NOTE | 2022-11-20 08:59 | MR_ITS ---
FINAL REPORT CLINICAL HISTORY: with contrast, eval for mets, hx of skin cancer pt stated has been off balance 17 ml prohance FINDINGS: Multiplanar MR imaging of the brain was performed without and with contrast. There is mild age-appropriate atrophy. Scattered foci of increased T2 signal are seen in the cerebral white matter that have a nonspecific appearance but likely represent severe chronic ischemic/gliotic changes. There is no evidence of intracranial hemorrhage or mass. There are several small chronic lacunar infarcts. There is mild ventriculomegaly, somewhat greater than expected for degree of atrophy worrisome for hydrocephalus. There is no evidence of shift of the midline structures. No abnormal extra-axial fluid collection is seen. No area of abnormal restricted diffusion is identified. No abnormal contrast enhancement is seen. Normal major vessel vascular flow voids are seen. There is total opacification of the right maxillary sinus. There is mucosal thickening of the left maxillary sinus. IMPRESSION: Mild ventriculomegaly greater than expected for degree of atrophy worrisome for hydrocephalus. Atrophy and severe chronic ischemic/gliotic changes. Reviewed, Interpreted and Dictated by Nate Acuna III, MD Transcribed by Stephanie Yi Authenticated and [facility]
== END ==
PROVIDERS: PCP Nurse Practitioner Family; Visit Provider Nurse Practitioner Family
DX: E11.9 Type 2 diabetes mellitus without complications (principal); I10 Essential (primary) hypertension; I25.10 Atherosclerotic heart disease of native coronary artery without angina pectoris; L98.9 Disorder of the skin and subcutaneous tissue, unspecified; R13.10 Dysphagia, unspecified; R26.89 Other abnormalities of gait and mobility; R47.1 Dysarthria and anarthria; R49.8 Other voice and resonance disorders; Z85.828 Personal history of other malignant neoplasm of skin; Z86.73 Personal history of transient ischemic attack (TIA), and cerebral infarction without residual deficits; E78.2 Mixed hyperlipidemia; H70.92 Unspecified mastoiditis, left ear; I65.29 Occlusion and stenosis of unspecified carotid artery; R06.09 Other forms of dyspnea; R53.83 Other fatigue; Z79.84 Long term (current) use of oral hypoglycemic drugs
CPT/HCPCS: 70546; 70553; A9576

== ENCOUNTER → 2022-11-27 14:08 | Outpatient (CLI) | payer MEDICARE, SELFPAY ==
[2022-11-29 14:28] LABS: Antiparietal Cell Antibody 3.5 Units (0.0-20.0)
== END ==
PROVIDERS: PCP Nurse Practitioner Family; Visit Provider Specialist
DX: E53.8 Deficiency of other specified B group vitamins (principal)
CPT/HCPCS: 36415; 83516; 86340

== ENCOUNTER 2023-01-05 10:45 | Emergency (ER) | payer MEDICARE, SELFPAY ==
[2023-01-05] VITALS (10 sets, daily range): BP systolic 101–118; BP diastolic 66–75; PULSE 53–63; RESP 14–17; TEMP 36.9; O2SAT 94–99; BMI 25.8
--- NOTE | 2023-01-05 10:54 | ECG_ITS ---
APPROVED REPORT Exam: Resting ECG HR:59 bpm ECG Measurements Heart Rate 59 AXES [place] 211 P 57 QRSd 83 QRS -15 QT 401 T 47 QTc 401 Conclusion SINUS BRADYCARDIA WITH FIRST DEGREE AV BLOCK ABNORMAL ECG UNCONFIRMED REPORT Electronically signed by : Derrick Lang MD 01/06/2023 14:02:27
--- NOTE | 2023-01-05 11:05 | PC.NURSE ---
Dr. Kelsey at BS
--- NOTE | 2023-01-05 11:08 | CT_ITS ---
PROCEDURE INFORMATION: Exam: CTA Head With Contrast, Arteriography Exam date and time: 01/05/2023 12:31 PM Age: 72 years old Clinical indication: Injury or trauma; Fall; Blunt trauma; Head; Additional info: Syncope, fall TECHNIQUE: Imaging protocol: Computed tomographic angiography of the head with contrast. Exam focused on the arteries. 3D rendering (Not supervised by radiologist): MIP and/or 3D reconstructed images were created by the technologist. Radiation optimization: All CT scans at this facility use at least one of these dose optimization techniques: automated exposure control; mA and/or kV adjustment per patient size (includes targeted exams where dose is matched to clinical indication); or iterative reconstruction. Contrast material: ISOVUE; Contrast volume: 370 ml; Contrast route: INTRAVENOUS (IV); REPORTING DATA: Count of CT and Cardiac NM exams in prior 12 months: This patient has received 2 known CTs and 0 known cardiac nuclear medicine studies in the 12 months prior to the current study. COMPARISON: CT HEAD/BRAIN WO CON 01/05/2023 12:28 PM FINDINGS: ANTERIOR CIRCULATION: Right internal carotid artery: Intracranial segment is patent with no significant stenosis. No aneurysm. Right middle cerebral artery: No occlusion or significant stenosis. No aneurysm. Right anterior cerebral artery: No occlusion or significant stenosis. No aneurysm. Of note, the right A1 EMILE and patent anterior communicating artery provide arterial supply to both the left and right A2 ACAs. Left internal carotid artery: Intracranial segment is patent with no significant stenosis. No aneurysm. Left middle cerebral artery: No occlusion or significant stenosis. No aneurysm. Left anterior cerebral artery: No occlusion or significant stenosis. No aneurysm. The left A1 EMILE is not present, normal variant. POSTERIOR CIRCULATION: Right vertebral artery: No occlusion or significant stenosis. No aneurysm. Left vertebral artery: No occlusion or significant stenosis. No aneurysm. Basilar artery: No occlusion or significant stenosis. No aneurysm. Right posterior cerebral artery: No occlusion or significant stenosis. No aneurysm. Left posterior cerebral artery: No occlusion or significant stenosis. No aneurysm. Brain: No definite mass, mass effect, or midline shift. Complete opacification of the right maxillary sinus. Mild mucosal thickening of the left maxillary sinus. Cerebral ventricles: No ventriculomegaly. Bones/joints: Unremarkable. No acute fracture. Soft tissues: Unremarkable. Lungs: Mild atelectasis in the dependent portions of bilateral upper lobes. IMPRESSION: No acute intracranial abnormality. No acute fracture. No significant soft tissue swelling overlying the calvarium.
--- NOTE | 2023-01-05 11:08 | CT_ITS ---
PROCEDURE INFORMATION: Exam: CTA Neck With Contrast Exam date and time: 01/05/2023 12:31 PM Age: 72 years old Clinical indication: Injury or trauma; Fall; Blunt trauma; Head; Additional info: Syncope, fall TECHNIQUE: Imaging protocol: Computed tomographic angiography of the neck with contrast. 3D rendering (Not supervised by radiologist): MIP and/or 3D reconstructed images were created by the technologist. Radiation optimization: All CT scans at this facility use at least one of these dose optimization techniques: automated exposure control; mA and/or kV adjustment per patient size (includes targeted exams where dose is matched to clinical indication); or iterative reconstruction. Contrast material: ISOVUE; Contrast volume: 100 ml; Contrast route: INTRAVENOUS (IV); REPORTING DATA: Count of CT and Cardiac NM exams in prior 12 months: This patient has received 2 known CTs and 0 known cardiac nuclear medicine studies in the 12 months prior to the current study. COMPARISON: CT SOFT TISSUE NECK W CON 11/14/2022 7:22 AM FINDINGS: Right common carotid artery: No stenosis. No dissection or occlusion. Right internal carotid artery: No stenosis of the extracranial segment. No dissection or occlusion. Right external carotid artery: No occlusion or stenosis of the origin. Left common carotid artery: No stenosis. No dissection or occlusion. Left internal carotid artery: No stenosis of the extracranial segment. No dissection or occlusion. Left external carotid artery: No occlusion or stenosis of the origin. Right vertebral artery: No stenosis. No dissection or occlusion. Left vertebral artery: No stenosis. No dissection or occlusion. Soft tissues: No significant soft tissue swelling. The patient is edentulous. Complete opacification of the right maxillary sinus. Mild mucosal thickening of the left maxillary sinus. Bones/joints: No acute fracture. IMPRESSION: No stenosis or occlusion. No acute fracture. REFERENCES: NASCET CRITERIA. The degree of stenosis in the cervical segment of the internal carotid artery is based on NASCET criteria. Normal is no stenosis. Mild is less than 50% stenosis. Moderate is 50-69% stenosis. Severe is 70% to 99% stenosis. Total occlusion is no detectable patent lumen.
--- NOTE | 2023-01-05 11:08 | CT_ITS ---
PROCEDURE INFORMATION: Exam: CT Head Without Contrast Exam date and time: 01/05/2023 12:28 PM Age: 72 years old Clinical indication: Injury or trauma; Fall; Blunt trauma (contusions or hematomas); Consciousness not specified; Additional info: Syncope, fall TECHNIQUE: Imaging protocol: Computed tomography of the head without contrast. Radiation optimization: All CT scans at this facility use at least one of these dose optimization techniques: automated exposure control; mA and/or kV adjustment per patient size (includes targeted exams where dose is matched to clinical indication); or iterative reconstruction. REPORTING DATA: Count of CT and Cardiac NM exams in prior 12 months: This patient has received 2 known CTs and 0 known cardiac nuclear medicine studies in the 12 months prior to the current study. COMPARISON: MR HEAD/BRAIN WO/W CON 11/20/2022 9:16 AM FINDINGS: Brain: No hemorrhage. Chronic small vessel ischemic disease. No mass effect. Cerebral ventricles: Prominent sulci and ventricles, consistent with moderate to severe cerebral atrophy. Paranasal sinuses: There is complete opacification of the right maxillary sinus. Mild left maxillary sinus mucosal thickening. The remainder of sinuses are unremarkable. Mastoid air cells: Visualized mastoid air cells are well aerated. Bones/joints: Unremarkable. No acute fracture. Soft tissues: Unremarkable. IMPRESSION: No acute intracranial abnormality.
[2023-01-05 11:14] LABS: Basophils % 0.5 % (0.1-2.0); Eosinophils # 0.3 K/mm3 (0.0-0.4); Eosinophils % 4.9 % (0.1-12.0); Hematocrit 44.6 % (42.0-52.0); Hemoglobin 14.4 g/dL (14.1-18.0); Lymphocytes # 1.4 K/mm3 (0.7-4.5); Lymphocytes % 23.3 % (10-50); Mean Corpuscular HGB Conc 32.3 g/dL (31.8-35.4); Mean Corpuscular Hemoglobin 30.4 pg (27.0-31.2); Mean Platelet Volume 7.6 fl (7.4-10.4); Monocytes # 0.6 K/mm3 (0.1-1.0); Monocytes % 9.3 % (1.7-9.3); Neutrophils # 3.8 K/mm3 (1.8-7.8); Platelet Count 151 K/mm3 (142-424); Red Blood Count 4.74 M/mm3 (4.60-6.20); Red Cell Distribution Width 13.2 % (11.5-17.5); White Blood Count 6.1 K/mm3 (4.8-10.8)
[2023-01-05 11:19] LABS: Alanine Aminotransferase 22 U/L (12-78); Albumin Level 4.3 g/dl (3.5-5.0); Albumin/Globulin Ratio 1.1 (1.1-1.8); Alkaline Phosphatase 71 U/L (38-126); Anion Gap 14.6 mEq/L (5-15); Aspartate Amino Transferase 28 U/L (17-59); Bilirubin,Total 0.6 mg/dl (0.2-1.3); Blood Urea Nitrogen 28 mg/dl (9-20); Calcium 9.1 mg/dl (8.4-10.2); Carbon Dioxide 25 mmol/L (22.0-30.0); Chloride 107 mmol/L (98-107); Creatine Kinase 54 U/L (55-170); Creatinine Clearance Estimated 61 mL/min (50-200); Estimated Glomerular Filt Rate 55 ml/min (>60); GFR (African American) 66 ML/MIN (>60); Globulin 3.8 g/dL (1.3-3.2); Glucose 101 mg/dl (74-100); Potassium 4.6 mmoL/L (3.5-5.1); Sodium 142 mmol/L (136-145); Total Protein,Serum 8.1 g/dl (6.3-8.2)
[2023-01-05 11:31] LABS: Troponin I < 0.01 ng/ml (0.00-0.034)
--- NOTE | 2023-01-05 12:17 | PC.NURSE ---
pt to CT via stretcher
--- NOTE | 2023-01-05 13:04 | HMH.EDGENADL ---
Discharge Plan Disposition Patient Disposition: Home, Self-Care Condition: Good Prescriptions Prescriptions: No Action glipizide 5 mg tablet 5 mg PO DAILY metformin 500 mg tablet 1,000 mg PO BID fluticasone propionate [Flonase Allergy Relief] 50 mcg/actuation spray,suspension 2 spray intranasal DAILY Qty: 16 4RF Rx Instructions: administer into each nostril montelukast [Singulair] 10 mg tablet 10 mg PO HS 90 Days Qty: 90 3RF aspirin [Adult Low Dose Aspirin] 81 mg tablet,delayed release (DR/EC) 81 mg PO DAILY bisoprolol fumarate 5 mg tablet 2.5 mg PO DAILY levothyroxine 25 mcg capsule 25 mcg PO DAILY lisinopril 2.5 mg tablet 2.5 mg PO DAILY Qty: 90 1RF rosuvastatin [Crestor] 40 mg tablet 40 mg PO DAILY Referrals Follow up/Referrals: Guera Bermeo APRN [Primary Care Provider] - See instructions Activity Restrictions/Add. Instructions Additional Instructions/Restrictions: Please follow-up with your primary care provider. Please return to the emergency department if you develop any new or worsening symptoms or become concerned for your health. As we discussed, plan to follow-up with your primary care provider for referral to GI, possible endoscopy regarding his difficulty swallowing. Clinical Impressions Clinical Impression: Fall from standing Qualifiers: Encounter type: initial encounter Qualified Code(s): W19.XXXA - Unspecified fall, initial encounter Difficulty in swallowing Qualifiers: Dysphagia type: unspecified Qualified Code(s): R13.10 - Dysphagia, unspecified Syncope Qualifiers: Syncope type: vasovagal syncope Qualified Code(s): R55 - Syncope and collapse Abrasion of forehead Qualifiers: Encounter type: initial encounter Qualified Code(s): S00.81XA - Abrasion of other part of head, initial encounter Instructions Patient Instructions: How to Prevent Falls Discharge ED Provider: Adam Kelsey I General Adult HPI General Chief complaint: Fall Stated complaint: AO [id number] fell from chair,weakness,confused Time Seen by Provider: 01/05/23 10:59 Mode of Arrival: Wheelchair Source of Information: Patient and Significant Other Limitations: No Limitations Description of Symptoms (Recalled from ER Triage Doc. by RN): report pt was sitting in the chair in the kitchen when she heard a thump she went in to find pt lying in the floor. pt did hit the right side of his head when he fell. reports pt has had numerous test done recently for his weakness and falls but nothing has come from those. History of Present Illness HPI narrative: Patient is a 72-year-old male with history of type 2 diabetes, hypertension who is presenting to the emergency department after a syncopal episode, hitting his head on the table. History was conducted with the patient as well as his at bedside. Patient reports that he has been dealing with generalized weakness for the past several months up to years for which they are being evaluated in the outpatient setting. Patient has had multiple MRIs of his head as well as a barium swallow study that was normal. Patient does report that he has had prior episodes of syncope when he is swallowing liquids, as they will get stuck in his throat and he has to bear down in order to get these to pass. Patient will then have an episode of syncope. Patient states that he was taking a sip of coffee this morning, felt to get stuck in his throat and bear down, felt himself become lightheaded and dizzy and passed out. Patient hit his head on the table. Patient reports currently feeling well, denies any chest pain, shortness of breath, difficulty breathing, fever, chills, cough, congestion, runny nose, paresthesias, focal weakness. Patient does not take any blood thinners other than daily aspirin. Related Data Home Medications Medication Instructions Recorded Confirmed aspirin 81 mg tablet,delayed 81 mg PO DAILY heart heal
--- NOTE | 2023-01-05 14:04 | PC.NURSE ---
ER MD Kelsey at discussing POC
--- NOTE | 2023-01-05 14:25 | PC.NURSE ---
green top tube send to lab for repeat troponin
--- NOTE | 2023-01-05 14:45 | PC.NURSE ---
pt sitting up in bed eating sandwich at this time
[2023-01-05 14:50] LABS: Troponin I < 0.01 ng/ml (0.00-0.034)
--- NOTE | 2023-01-05 15:09 | PC.NURSE ---
PT AMBULATED TO BR WITH NO PROBLEMS
--- NOTE | 2023-01-05 15:09 | PC.NURSE ---
PT AMBULATED TO BR
== END 2023-01-05 15:24 | disposition home or self-care (01) ==
PROVIDERS: Emergency Provider Emergency Medicine; PCP Nurse Practitioner Family
DX: S00.81XA Abrasion of other part of head, initial encounter (principal); R55 Syncope and collapse; R13.10 Dysphagia, unspecified; W01.190A Fall on same level from slipping, tripping and stumbling with subsequent striking against furniture, initial encounter; R00.1 Bradycardia, unspecified
CPT/HCPCS: 70450; 70496; 70498; 80053; 82550; 84484; 85025; 93005; 99285; Q9967

== ENCOUNTER 2023-02-19 11:10 | Day surgery (SDC) | payer MEDICARE, SELFPAY ==
[2023-01-16 13:53] VITALS: BMI 26.1
[2023-02-19] VITALS (7 sets, daily range): BP systolic 95–117; BP diastolic 44–73; PULSE 52–72; RESP 15–18; TEMP 36.3–36.5; O2SAT 92–97
[2023-02-19 11:40] LABS: POC Glucose,Bedside 95 (70-110)
--- NOTE | 2023-02-19 12:01 | P.PNANES_ITS ---
[facility] Disclaimer: The information contained in this section may have been updated after the patient was seen, as this information can be updated by other users. Medical History Dyspnea on exertion Hx-TIA (transient ischemic attack) Right maxillary sinusitis, chronic Skin lesion of left ear Surgical History Hx of cardiac cath Family History Other Cancer Diabetes Stroke Social History Smoking Status: Never smoker alcohol intake: former substance use type: denies use current occupational status: other Travel in the last 8 weeks: None household members: spouse housing: house marital status: service: No group home: No current occupational exposures/hazards: No caffeine: Yes [facility] Anesthesia Checklist Patient Identification Patient Identification: Arm Band and Verbal (Name & ) Structural Data Admitted From: Home Planned Operative Procedure/s: EGD Consent for Planned Operative Procedure(s) Verified: Yes NPO Status Verified Time NPO: 09:00 (Black coffee at 0900. Chewing tobacco at 0600) Additional verifications Anesthesia Reactions: No Airway Assessment Mallampati Score:: Class IV C-Spine Mobility Assessed: Yes TMJ Mobility Assessed: Yes Dentition: Edentulous Neurological Assessment Level of Consciousness: Awake Hx Seizures: No Numbness or tingling in extremities: No Anesthesia Plan Anesthesia Risk discussed: Yes Anesthesia Plan: Verified ASA Class: III Anesthesia Type: MAC
--- NOTE | 2023-02-19 12:45 | HMH.SCOPE ---
Procedure: Date: 02/19/23 Patient Date of :: 1950 Procedure Performed:: EGD Indications:: The patient is a 73 year old who has chronic dysphagia symptom Performing Provider:: Checo Daniel MD Referring Provider:: Alejandro Bermeo APRN Sedation:: See RN records Procedure:: The gastroscope was gently passed through the incisoral orifice into the oral cavity and under direct visualization the esophagus was intubated. The endoscope was passed down the esophagus, through the stomach, and into the duodenum. Color, texture, mucosa, and anatomy of the esophagus, stomach, and duodenum were carefully examined with the scope. Findings:: Oropharynx: normal Esophagus: normal. biopsies obtained, empiric dilatation performed with 56F bougie dilation EG Junction: intact at 40 cm Cardia: normal Fundus: normal Body: normal Antrum: normal Duodenal bulb: normal Duodenum (second and third portion): normal Recommendations:: Await pathology results Follow up with referring provider Complications:: none Estimated blood obtained (mL): 0 Colonoscopy Component Colonoscopy Component Was a colonoscopy performed during today's procedure?: No
== END 2023-02-19 13:50 | disposition home or self-care (01) ==
PROVIDERS: PCP Nurse Practitioner Family; Visit Provider Internal Medicine
PROC: 0DJ08ZZ Inspection of Upper Intestinal Tract, Via Natural or Artificial Opening Endoscopic (ICD-10-PCS; CPT 43235; principal; 2023-02-19 12:30)
DX: R13.10 Dysphagia, unspecified (principal); E11.9 Type 2 diabetes mellitus without complications
CPT/HCPCS: 43239; 43248; 82962; 88305

== ENCOUNTER → 2023-02-25 16:12 | Outpatient (CLI) | payer MEDICARE, SELFPAY ==
[2023-02-25 14:13] LABS: Basophils % 0.3 % (0.1-2.0); Eosinophils # 0.6 K/mm3 (0.0-0.4); Eosinophils % 6.2 % (0.1-12.0); Hematocrit 45.9 % (42.0-52.0); Hemoglobin 14.3 g/dL (14.1-18.0); Lymphocytes # 1.2 K/mm3 (0.7-4.5); Lymphocytes % 12.7 % (10-50); Mean Corpuscular HGB Conc 31.3 g/dL (31.8-35.4); Mean Corpuscular Hemoglobin 29.6 pg (27.0-31.2); Mean Corpuscular Volume 94.6 fl (80-94); Mean Platelet Volume 8.6 fl (7.4-10.4); Monocytes # 0.7 K/mm3 (0.1-1.0); Monocytes % 7.3 % (1.7-9.3); Neutrophils # 7.1 K/mm3 (1.8-7.8); Neutrophils % 73.4 % (37.0-80.0); Platelet Count 200 K/mm3 (142-424); Red Blood Count 4.85 M/mm3 (4.60-6.20); Red Cell Distribution Width 13.5 % (11.5-17.5); White Blood Count 9.6 K/mm3 (4.8-10.8)
[2023-02-25 14:42] LABS: Alanine Aminotransferase 22 U/L (12-78); Albumin Level 3.8 g/dl (3.5-5.0); Albumin/Globulin Ratio 1.1 (1.1-1.8); Alkaline Phosphatase 72 U/L (38-126); Anion Gap 15.8 mEq/L (5-15); Aspartate Amino Transferase 29 U/L (17-59); Bilirubin,Total 0.4 mg/dl (0.2-1.3); Blood Urea Nitrogen 24 mg/dl (9-20); Calcium 9.1 mg/dl (8.4-10.2); Carbon Dioxide 27 mmol/L (22.0-30.0); Chloride 105 mmol/L (98-107); Chol/HDL Ratio 3.8 (1-3.5); Cholesterol 95 mg/dl (140-200); Estimated Glomerular Filt Rate 50 ml/min (>60); GFR (African American) 60 ML/MIN (>60); Globulin 3.5 g/dL (1.3-3.2); Glucose 111 mg/dl (74-100); HDL Cholesterol 25 mg/dl (40-60); Potassium 4.8 mmoL/L (3.5-5.1); Sodium 143 mmol/L (136-145); Total Protein,Serum 7.3 g/dl (6.3-8.2); Triglycerides 116 mg/dl (30-150); VLDL Cholesterol 23 mg/dL (0-40)
[2023-02-25 14:54] LABS: Direct LDL Cholesterol 53.11 mg/dL (100-129)
[2023-02-25 15:31] LABS: Vitamin B12 304 pg/mL (239-931)
== END ==
PROVIDERS: PCP Nurse Practitioner Family; Visit Provider Nurse Practitioner Family
DX: I25.10 Atherosclerotic heart disease of native coronary artery without angina pectoris (principal); R00.1 Bradycardia, unspecified; R53.1 Weakness; R55 Syncope and collapse; R79.89 Other specified abnormal findings of blood chemistry; I10 Essential (primary) hypertension
CPT/HCPCS: 80053; 80061; 82607; 85025

== ENCOUNTER → 2023-03-11 12:57 | Outpatient (POV) | payer MEDICARE, SELFPAY | PROVIDERS: Visit Provider Dermatology | DX: Z00.00 Encounter for general adult medical examination without abnormal findings (principal) ==

== ENCOUNTER → 2023-04-01 15:36 | Outpatient (CLI) | payer MEDICARE, SELFPAY ==
--- NOTE | 2023-04-01 15:50 | XR_ITS ---
FINAL REPORT CLINICAL HISTORY: shortness of breath, edema FINDINGS: A PA and lateral view of the chest was performed. The heart is normal in size. There is no edema or infiltrate. There may be mild emphysema. There are increased interstitial/bronchial markings. IMPRESSION: 1. No acute process. 2. Probable mild emphysema with increased interstitial markings. Authenticated and [facility]
[2023-04-01 16:04] LABS: Basophils # 0.1 K/mm3 (0-0.2); Basophils % 0.6 % (0.1-2.0); Eosinophils # 0.4 K/mm3 (0.0-0.4); Eosinophils % 5.2 % (0.1-12.0); Hematocrit 39.2 % (42.0-52.0); Hemoglobin 13.2 g/dL (14.1-18.0); Lymphocytes # 1.3 K/mm3 (0.7-4.5); Lymphocytes % 15.1 % (10-50); Mean Corpuscular HGB Conc 33.6 g/dL (31.8-35.4); Mean Corpuscular Hemoglobin 31.6 pg (27.0-31.2); Mean Corpuscular Volume 94.1 fl (80-94); Mean Platelet Volume 7.6 fl (7.4-10.4); Monocytes # 0.7 K/mm3 (0.1-1.0); Monocytes % 7.8 % (1.7-9.3); Neutrophils # 6.1 K/mm3 (1.8-7.8); Neutrophils % 71.3 % (37.0-80.0); Platelet Count 222 K/mm3 (142-424); Red Blood Count 4.17 M/mm3 (4.60-6.20); Red Cell Distribution Width 13.8 % (11.5-17.5); White Blood Count 8.6 K/mm3 (4.8-10.8)
[2023-04-01 16:32] LABS: Alanine Aminotransferase 26 U/L (12-78); Albumin Level 3.6 g/dl (3.5-5.0); Albumin/Globulin Ratio 1.1 (1.1-1.8); Alkaline Phosphatase 85 U/L (38-126); Anion Gap 15.2 mEq/L (5-15); Aspartate Amino Transferase 34 U/L (17-59); Bilirubin,Total 0.2 mg/dl (0.2-1.3); Blood Urea Nitrogen 27 mg/dl (9-20); Calcium 8.9 mg/dl (8.4-10.2); Carbon Dioxide 25 mmol/L (22.0-30.0); Chloride 102 mmol/L (98-107); Estimated Glomerular Filt Rate 60 ml/min (>60); GFR (African American) 72 ML/MIN (>60); Globulin 3.2 g/dL (1.3-3.2); Glucose 86 mg/dl (74-100); Potassium 4.2 mmoL/L (3.5-5.1); Sodium 138 mmol/L (136-145); Total Protein,Serum 6.8 g/dl (6.3-8.2)
[2023-04-01 16:41] LABS: NT Pro Brain Natriuretic Pep. 313 pg/mL (0-125)
[2023-04-01 17:02] LABS: Thyroid Stimulating Hormone 2.71 uIU/mL (0.465-4.68)
== END ==
PROVIDERS: PCP Nurse Practitioner Family; Visit Provider Nurse Practitioner Family
DX: R06.02 Shortness of breath (principal); R60.9 Edema, unspecified
CPT/HCPCS: 36415; 71046; 80053; 83880; 84443; 85025

== ENCOUNTER → 2023-04-14 10:23 | Outpatient (CLI) | payer MEDICARE, SELFPAY ==
--- NOTE | 2023-04-14 10:27 | XR_ITS ---
FINAL REPORT CLINICAL HISTORY: Left knee pain, popping sensation with movement COMPARISON: None FINDINGS: Three views of the left knee reveal no evidence of fracture or dislocation. The bony alignment is normal. The joint spaces are preserved. There is no evidence of joint effusion. No localized soft tissue abnormality is seen. IMPRESSION: No acute abnormality identified. Reviewed, Interpreted and Dictated by Nate Acuna III, MD Transcribed by Lisa Staton Authenticated and [facility]
--- NOTE | 2023-04-14 10:27 | XR_ITS ---
FINAL REPORT CLINICAL HISTORY: Right knee pain, popping sensation with movement COMPARISON: None FINDINGS: Three views of the right knee reveal no evidence of fracture or dislocation. The bony alignment is normal. The joint spaces are preserved. There is no evidence of joint effusion. No localized soft tissue abnormality is identified. IMPRESSION: No acute abnormality identified. Reviewed, Interpreted and Dictated by Naet Acuna III, MD Transcribed by Lisa Staton Authenticated and [facility]
[2023-04-14 13:18] LABS: Basophils # 0.1 K/mm3 (0-0.2); Basophils % 0.5 % (0.1-2.0); Eosinophils # 0.4 K/mm3 (0.0-0.4); Hematocrit 41.5 % (42.0-52.0); Hemoglobin 13.5 g/dL (14.1-18.0); Lymphocytes # 1.4 K/mm3 (0.7-4.5); Lymphocytes % 13.5 % (10-50); Mean Corpuscular HGB Conc 32.6 g/dL (31.8-35.4); Mean Corpuscular Hemoglobin 30.7 pg (27.0-31.2); Mean Corpuscular Volume 94.3 fl (80-94); Mean Platelet Volume 8.2 fl (7.4-10.4); Monocytes # 0.9 K/mm3 (0.1-1.0); Monocytes % 8.4 % (1.7-9.3); Neutrophils # 7.8 K/mm3 (1.8-7.8); Neutrophils % 73.6 % (37.0-80.0); Platelet Count 281 K/mm3 (142-424); Red Cell Distribution Width 13.8 % (11.5-17.5); White Blood Count 10.6 K/mm3 (4.8-10.8)
[2023-04-14 14:16] LABS: Alanine Aminotransferase 30 U/L (12-78); Albumin Level 3.7 g/dl (3.5-5.0); Albumin/Globulin Ratio 1.1 (1.1-1.8); Alkaline Phosphatase 90 U/L (38-126); Anion Gap 16.4 mEq/L (5-15); Aspartate Amino Transferase 42 U/L (17-59); Bilirubin,Total 0.3 mg/dl (0.2-1.3); Blood Urea Nitrogen 32 mg/dl (9-20); Carbon Dioxide 25 mmol/L (22.0-30.0); Chloride 102 mmol/L (98-107); Chol/HDL Ratio 5.4 (1-3.5); Cholesterol 145 mg/dl (140-200); Estimated Glomerular Filt Rate 50 ml/min (>60); GFR (African American) 60 ML/MIN (>60); Globulin 3.4 g/dL (1.3-3.2); Glucose 88 mg/dl (74-100); HDL Cholesterol 27 mg/dl (40-60); Potassium 5.4 mmoL/L (3.5-5.1); Sodium 138 mmol/L (136-145); Total Protein,Serum 7.1 g/dl (6.3-8.2); Triglycerides 106 mg/dl (30-150); VLDL Cholesterol 21 mg/dL (0-40)
[2023-04-14 14:27] LABS: Direct LDL Cholesterol 94.05 mg/dL (100-129)
[2023-04-14 18:46] LABS: Ferritin 506 ng/ml (17.9-464)
== END ==
PROVIDERS: PCP Nurse Practitioner Family; Visit Provider Nurse Practitioner Family
DX: M25.561 Pain in right knee (principal); M25.562 Pain in left knee; R79.89 Other specified abnormal findings of blood chemistry; D50.9 Iron deficiency anemia, unspecified; E87.6 Hypokalemia; R60.9 Edema, unspecified; E78.5 Hyperlipidemia, unspecified; Z86.73 Personal history of transient ischemic attack (TIA), and cerebral infarction without residual deficits
CPT/HCPCS: 73562; 80053; 80061; 82728; 85025

== ENCOUNTER 2023-06-06 08:06 | Day surgery (SDC) | payer MEDICARE, SELFPAY ==
[2023-06-06] VITALS (10 sets, daily range): BP systolic 115–171; BP diastolic 63–84; PULSE 63–81; RESP 16–20; TEMP 36.1–36.4; O2SAT 95–100; BMI 25.2
--- NOTE | 2023-06-06 07:10 | IR_ITS ---
APPROVED REPORT Patient Location: Outpatient PROCEDURES Left heart catheterization Left ventriculogram Selective coronary angiogram INDICATION Known coronary artery disease, Worsening angina pectoris Informed consent was obtained prior to the procedure. COMPLICATIONS None Estimated Blood Loss: Less than 10 mls TECHNIQUE One percent lidocaine used to anesthetize the right anterior aspect of the wrist. The right radial artery was accessed via the Seldinger technique. A 6 Arabic sheath was placed in the right radial artery. 2.5 mg of Verapamil, 800 mcg of nitroglycerin, 1mg Lidocaine and 5000 U Heparin were given through the arterial sheath. The papa catheter was also used to perform left heart catheterization, left ventriculogram and selective coronary angiogram. At the end of the procedure the sheath was removed good hemostasis was achieved using Traclet band, patient was transferred to the postop holding area in stable condition. ANGIOGRAPHIC RESULTS The left main artery Normal The left anterior descending artery Has proximal 10 to 20% stenoses with a mid vessel 30% stenosis followed by a 50% and then 60% stenosis. The vessel is 2.25 mm in diameter. There is are additional tandem 90 and 80% mid vessel stenoses. Distally the LAD has 90% tortuous stenoses as the LAD wraps the apex. The circumflex artery Gives rise to a 1.75 to 2 mm ramus intermedius which has proximal 90% stenosis. There are additional distal 80% stenoses. The first obtuse marginal artery is a large vessel and has proximal 20 and 30% stenosis with a mid vessel 20 to 30% stenosis The right coronary artery Is probably a codominant system and has a mid vessel long 40 to 50% calcific stenosis. The entire vessel is 2.5 to 2.75 mm in diameter The ORTEZ ventriculogram reveals Normal 65% The left ventricular end-diastolic pressure 10 to 15 mmHg IMPRESSION Coronary disease as described above most notably with severe disease in the mid and distal LAD which has not realistically amenable to percutaneous revascularization Severe disease and a small to moderate ramus intermedius as described above Moderate disease in a codominant right coronary Normal ejection fraction Normal left ventricular end-diastolic pressure PLAN 1. There has been a little if any interval coronary artery disease change since April 2020 2. I still recommend continued medical management. Ejection fraction is normal. None of the lesions are realistically amenable to intervention and all would be fraught with high likelihood of complications with delivery of the stents. The long-term patency of the stents and these stenoses would also be dubious at best. Encouragingly patient's coronary disease has not progressed in the last 3 years therefore I recommend maximizing antianginal medications and providing additional encouraging support to patient's prognosis with medical management 3. LDL less than 55 to be achieved with high intensity statin 4. Next mise antianginal medications Electronically signed by : Miguel Hubbard MD 06/06/2023 11:16:48
[2023-06-06 08:45] LABS: Basophils # 0.1 K/mm3 (0-0.2); Basophils % 0.7 % (0.1-2.0); Eosinophils # 0.6 K/mm3 (0.0-0.4); Hematocrit 41.5 % (42.0-52.0); Hemoglobin 13.1 g/dL (14.1-18.0); Lymphocytes # 1.5 K/mm3 (0.7-4.5); Mean Corpuscular HGB Conc 31.6 g/dL (31.8-35.4); Mean Corpuscular Hemoglobin 29.4 pg (27.0-31.2); Mean Corpuscular Volume 92.8 fl (80-94); Mean Platelet Volume 7.7 fl (7.4-10.4); Monocytes # 0.6 K/mm3 (0.1-1.0); Monocytes % 5.5 % (1.7-9.3); Neutrophils # 8.6 K/mm3 (1.8-7.8); Neutrophils % 75.7 % (37.0-80.0); Platelet Count 347 K/mm3 (142-424); Red Blood Count 4.47 M/mm3 (4.60-6.20); White Blood Count 11.3 K/mm3 (4.8-10.8)
[2023-06-06 08:53] LABS: Chloride 108 mmol/L (98-107); Sodium 141 mmol/L (136-145)
[2023-06-06 08:56] LABS: Blood Urea Nitrogen 29 mg/dl (9-20); Calcium 8.5 mg/dl (8.4-10.2); Carbon Dioxide 25 mmol/L (22.0-30.0); Creatinine Clearance Estimated 57 mL/min (50-200); Estimated Glomerular Filt Rate 54 ml/min (>60); GFR (African American) 66 ML/MIN (>60); Glucose 82 mg/dl (74-100)
[2023-06-06] MEDS: diphenhydrAMINE 50MG/ML VIAL 50 MG IV (10:50)
[2023-06-06] MEDS: 0.9 % SODIUM CHLORIDE 500 ML 25 ML IV (10:51)
[2023-06-06] MEDS: HEPARIN 1,000 UNITS/500ML NS (CATH LAB) 3000 UNIT IV (10:51)
[2023-06-06] MEDS: LIDOCAINE 1% 10ML MDV 20 ML IJ (10:51)
[2023-06-06] MEDS: NITROGLYCERIN 800MCG/8ML SYR (CATH LAB) 800 MCG IA (10:51)
[2023-06-06] MEDS: VERAPAMIL 2.5MG/ML 2ML VIAL 2.5 MG IV (10:51)
[2023-06-06] MEDS: MIDAZOLAM HCL 1MG/1ML 5ML VIAL 1 MG IV (10:52)
[2023-06-06] MEDS: FENTANYL 100MCG/2ML VIAL 50 MCG IV (10:52)
[2023-06-06] MEDS: IOPAMIDOL-370 (76%);100ML BOTTLE 50 ML IV (11:43)
== END 2023-06-06 14:05 | disposition home or self-care (01) ==
PROVIDERS: PCP Nurse Practitioner Family; Visit Provider Internal Medicine
DX: I25.118 Atherosclerotic heart disease of native coronary artery with other forms of angina pectoris (principal); E11.9 Type 2 diabetes mellitus without complications; I65.23 Occlusion and stenosis of bilateral carotid arteries; R06.02 Shortness of breath; Z79.84 Long term (current) use of oral hypoglycemic drugs; Z79.899 Other long term (current) drug therapy; E78.5 Hyperlipidemia, unspecified; I69.391 Dysphagia following cerebral infarction; I69.322 Dysarthria following cerebral infarction; I69.354 Hemiplegia and hemiparesis following cerebral infarction affecting left non-dominant side; R13.10 Dysphagia, unspecified
CPT/HCPCS: 80048; 85025; 93458; 99152; C1725; C1760; C1769; J1644; Q9967

== ENCOUNTER 2023-07-18 11:38 | Outpatient (CLI) | payer MEDICARE, SELFPAY ==
--- NOTE | 2023-07-18 11:41 | XR_ITS ---
FINAL REPORT CLINICAL HISTORY: Right rib pain, fall COMPARISON: None FINDINGS: RIGHT RIBS: 4 views of the right ribs were obtained. There is no acute displaced fracture. The visualized lungs are clear. No pneumothorax is identified. IMPRESSION: No evidence of a displaced rib fracture or pneumothorax. Reviewed, Interpreted and Dictated by Chris Nuñez MD Transcribed by Sydni Hung Authenticated and . [facility]
[2023-07-18 15:54] LABS: Erythrocyte Sedimentation Rate 49 mm/hr (0-20)
[2023-07-18 16:12] LABS: Uric Acid 4.4 mg/dl (3.5-8.5)
[2023-07-18 16:39] LABS: Hemoglobin A1C 5.2 % (4.0-6.0)
[2023-07-19 05:57] LABS: RA Latex Turbid. 27.8 IU/mL (<14.0)
[2023-07-21 16:12] LABS: Homogeneous Pattern >1:1280 (.)
[2023-07-22 10:42] LABS: Antinuclear Antibodies, IFA Positive
== END 2023-07-18 23:59 ==
LOC: RAD 11:39
PROVIDERS: PCP Nurse Practitioner Family; Visit Provider Nurse Practitioner Family
DX: E11.9 Type 2 diabetes mellitus without complications (principal); M25.50 Pain in unspecified joint; R07.81 Pleurodynia; Z79.84 Long term (current) use of oral hypoglycemic drugs; W19.XXXA Unspecified fall, initial encounter
CPT/HCPCS: 36415; 71111; 83036; 84550; 85651; 86038; 86431

== ENCOUNTER 2023-08-15 07:07 | Outpatient (CLI) | payer MEDICARE, SELFPAY ==
--- NOTE | 2023-08-15 07:08 | CT_ITS ---
FINAL REPORT TECHNIQUE: Axial imaging of the chest was obtained without contrast. Reformatted images were also obtained and reviewed.This study was performed with techniques to keep radiation doses as low as reasonably achievable, (ALARA). Individualized dose reduction technique using automated exposure control or adjustment of mA and/or kV according to the patient's size were employed. CLINICAL HISTORY: bilateral lower rib pain, weight loss FINDINGS: There is no axillary adenopathy. There are borderline mediastinal lymph nodes. Heart size is normal. There is no pericardial or pleural effusion. Limited images of the upper abdomen are unremarkable. No suspicious infiltrate or nodule is identified on lung window images. There is bibasilar atelectasis. Mild irregularity is seen of the left fourth and fifth distal ribs worrisome for nondisplaced fractures. There is no pneumothorax. IMPRESSION: Borderline mediastinal lymph nodes. Bibasilar atelectasis. Mild irregularity of the left fourth and fifth distal ribs worrisome for nondisplaced fractures. No pneumothorax. Reviewed, Interpreted and Dictated by Nate Acuna III, MD Transcribed by Maryellen Stafford Authenticated and [facility]
== END 2023-08-15 23:59 ==
LOC: RAD 07:08
PROVIDERS: PCP Nurse Practitioner Family; Visit Provider Nurse Practitioner Family
DX: R07.81 Pleurodynia (principal); R63.4 Abnormal weight loss; Z68.23 Body mass index [BMI] 23.0-23.9, adult
CPT/HCPCS: 71250

== ENCOUNTER 2023-08-25 09:46 | Observation (INO) | payer MEDICARE, SELFPAY ==
[2023-08-25] VITALS (10 sets, daily range): BP systolic 111–133; BP diastolic 54–81; PULSE 63–73; RESP 16–26; TEMP 36.4–36.9; O2SAT 96–99; BMI 23.3; BMI 23.2
--- NOTE | 2023-08-25 09:55 | ECG_ITS ---
APPROVED REPORT Exam: Resting ECG HR:70 bpm ECG Measurements Heart Rate 70 AXES [place] 193 P 67 QRSd 101 QRS -29 QT 385 T 38 QTc 406 Conclusion SINUS RHYTHM Electronically signed by : BORA JAQUEZ, 08/26/2023 06:58:57
--- NOTE | 2023-08-25 09:55 | PC.NURSE ---
Dr. Sequeira at BS for pt eval
--- NOTE | 2023-08-25 09:58 | XR_ITS ---
FINAL REPORT CLINICAL HISTORY: soa COMPARISON: 08/20/2023 FINDINGS: A single portable view of the chest was obtained. The heart size and pulmonary vascularity are within normal limits. The mediastinum is within normal limits. There is mild right basilar opacity which persists since the prior film of August 19, favor atelectasis over pneumonia. The bony thorax is intact. IMPRESSION: Mild right basilar opacity persists since prior film of August 19, favor atelectasis over pneumonia. Reviewed, Interpreted and Dictated by Nate Acuna III, MD Transcribed by Sydni Hung Authenticated and [facility]
--- NOTE | 2023-08-25 10:06 | PC.NURSE ---
RAD at for CXR
[2023-08-25 10:09] LABS: Basophils # 0.1 K/mm3 (0-0.2); Basophils % 0.6 % (0.1-2.0); Eosinophils # 0.2 K/mm3 (0.0-0.4); Eosinophils % 2.1 % (0.1-12.0); Hematocrit 39.9 % (42.0-52.0); Hemoglobin 12.6 g/dL (14.1-18.0); Lymphocytes # 1.5 K/mm3 (0.7-4.5); Lymphocytes % 13.2 % (10-50); Mean Corpuscular HGB Conc 31.7 g/dL (31.8-35.4); Mean Corpuscular Hemoglobin 29.5 pg (27.0-31.2); Mean Corpuscular Volume 93.2 fl (80-94); Mean Platelet Volume 7.6 fl (7.4-10.4); Monocytes # 0.7 K/mm3 (0.1-1.0); Monocytes % 5.6 % (1.7-9.3); Neutrophils # 9.1 K/mm3 (1.8-7.8); Neutrophils % 78.6 % (37.0-80.0); Platelet Count 268 K/mm3 (142-424); Red Blood Count 4.28 M/mm3 (4.60-6.20); Red Cell Distribution Width 16.2 % (11.5-17.5); White Blood Count 11.6 K/mm3 (4.8-10.8)
[2023-08-25] MEDS: 0.9 % SODIUM CHLORIDE 1000ML 1,000 ML 999 ML IV (10:14)
--- NOTE | 2023-08-25 10:14 | PC.NURSE ---
PT O2 sats dropped upon ambulation to bathroom. Dr. Sequeira notified.
[2023-08-25 10:21] LABS: Microscopic, Urine URINE MICROSCOPIC (MICROSCOPIC)
[2023-08-25 10:21] LABS: Chloride 107 mmol/L (98-107); Sodium 139 mmol/L (136-145)
[2023-08-25 10:23] LABS: Appearance,Urine CLEAR (Clear); Bilirubin,Urine Negative (Negative); Blood, Urine Negative (Negative); Color,Urine YELLOW (Yellow); Glucose,Urine (UA) Negative (Negative); Ketones,Urine TRACE (Negative); Leukocyte Esterase,Urine Negative (Negative); Nitrate,Urine Negative (Negative); PH,Urine 5.5 (5.0-8.5); Protein,Urine Negative (Negative); Specific Gravity, Urine >= 1.030 (1.005-1.030)
--- NOTE | 2023-08-25 10:23 | HMH.EDCP ---
Discharge Plan Disposition Patient Disposition: Home, Self-Care Chief Complaint: Shortness of Breath/Dyspnea Clinical Impressions Clinical Impression: Stable angina pectoris Discharge ED Provider: Aguilar Sequeira HPI General Chief Complaint: Shortness of Breath/Dyspnea Stated Complaint: Diff. Breathing Time Seen by Provider: 08/25/23 09:50 Mode of Arrival: Wheelchair Source of Information: Patient Limitations: No Limitations Description of Symptoms (Recalled from ER Triage Doc. by RN): Patient complaint of being out of breath and pain in his right ribs. States he fell approx 1 month ago injuring those ribs. History of Present Illness HPI narrative: Is a 73-year-old male with history of hypertension, hyperlipidemia, type 2 diabetes, CVA currently on aspirin, chronic chest pain and shortness of breath presenting with shortness of breath. Patient states that he fell about a month prior to this visit and has been having right rib pain since that time. He had a CT done 08/14 which demonstrated mild irregularity of the fourth and fifth distal ribs, which was concerning for possible nondisplaced fractures. Patient denies ever having pain on the side of the chest, or injury to the side of his chest. States that for the past few months he has been getting short of breath with minimal exertion. Has seen cardiology and pulmonology and states nothing was found. Went to his family doctor today, who sent him to the emergency department due to patient still not having answers,, but with no particular concern. Patient denies diaphoresis, nausea or vomiting, fevers or chills, decreased p.o. intake, significant weight loss, smoking history, abdominal pain, or any other concerns. Please note that above description of symptoms, in this electronic medical record under categorization of recalled from ER triage doctor by RN are reflective of an initial nursing assessment, however, is not reflective of my full history and physical exam that was personally taken and clarified. Consequentially, this preceding description of symptoms, which may include the patient's categorized chief complaint in the EMR, do not reflect my personal clinical impression, and the ultimate description of history of present illness and patient stated complaints should be deferred to this section of the note. Unless stated otherwise or congruent with this section of the note, additional signs, symptoms, or incongruence should be interpreted as inaccurate with my clinical impression. Related Data Home Medications Medication Instructions Recorded Confirmed aspirin 81 mg tablet,delayed 81 mg PO DAILY [facility] 04/18/20 08/25/23 release (Adult Low Dose Aspirin) levothyroxine 25 mcg capsule 25 mcg PO DAILY thyroid 11/21/22 08/25/23 hydroxychloroquine 200 mg tablet 200 mg PO BID 08/25/23 08/25/23 prednisone 5 mg tablet 15 mg PO DAILY 08/25/23 08/25/23 Previous Rx's Medication Instructions Recorded atorvastatin 10 mg tablet 10 mg PO DAILY #90 tabs 03/06/23 metformin 1,000 mg tablet 1,000 mg PO BID 90 days #180 tabs 04/22/23 sertraline 50 mg tablet 50 mg PO DAILY 30 days #30 tabs 06/16/23 tramadol 50 mg tablet 50 mg PO Q6H PRN pain #30 tabs 07/21/23 bisoprolol fumarate 5 mg tablet 2.5 mg (1/2 x 5 mg) PO DAILY HTN 08/05/23 90 days #45 tabs methylprednisolone 4 mg tablets in See Rx Instructions PO PER PKG DIR 08/06/23 a dose pack (Medrol (Ricco)) #21 tabs Allergies Allergy/AdvReac Type Severity Reaction Status Date / Time No Known Allergies Allergy Verified 08/25/23 08:49 [facility] Disclaimer: The information contained in this section may have been updated after the patient was seen, as this information can be updated by other users. Medical History Atypical angina Hx-TIA (transient ischemic attack) Skin lesion of left ear Right maxillary sinusitis, chronic Dyspnea on exertion Carotid artery stenosis History of CVA (cerebrovascular accident) Mild left-sided weakness, residual dysarthria dysphagia, Evidence of subclinical lacunar or subcortical strokes. Cannot exclude vascular parkinsonism, expect from hydrocephalus. He does not have signs, symptoms suggestive of NPH. Plan is to continue to follow-up conservatively at this time. Diastolic dysfunction HLD (hyperlipidemia) CAD (coronary artery disease) DM2 (diabetes mellitus, type 2) Cerebrovascular accident Surgical History Hx of cardiac cath Family History Other Cancer Diabetes Stroke Social History (Reviewed 08/25/23 @ 08:53 by CORBIN Patel Smoking Status: Never smoker alcohol intake: former substance use type: denies use current occupational status: other Travel in the last 8 weeks: None household members: spouse housing: house marital status: service: No longterm: No current occupational exposures/hazards: No caffeine: Yes ROS Obtained: Yes All systems reviewed & no additional complaints except as documented Physical Exam General General appearance: alert Neck Neck exam: Present trachea midline Chest Chest inspection: Present normal inspection and symmetric chest wall rise Respiratory Respiratory exam: Present normal lung sounds bilaterally; Absent respiratory distress, wheezes, stridor, accessory muscle use or prolonged expiratory phase Cardiovascular Cardiovascular exam: Present regular rate and normal rhythm Extremities Exam Extremities exam: Absent edema Neurological Exam Neurological exam: Present alert, oriented X3 and CN II-XII intact Skin Skin exam: Present warm and dry; Absent cyanosis, diaphoresis or pallor HEART Score HEART Score HEART Score assessment performed?: Yes History (anamnesis): Moderately suspicious ECG: Non-specific disturbance Age: >65 years Risk factors: 3 or more risk factors Troponin: </= normal limit HEART Score: 6 Critical Care Critical Care Time Critical Care Time: No Medical Decision Making Medical Records Medical records reviewed: Yes I reviewed the patient's medical records. Rickie Inquiry Pt receiving controlled substance: No Rickie was queried for this patient: No Vital Signs Vital Signs: 08/25/23 09:47 08/25/23 10:01 08/25/23 10:30 Temperature 98.0 F Temperature Source Oral Pulse Rate 68 69 Pulse Rate [Radial] 66 Respiratory Rate 18 17 26 H Blood Pressure 125/81 116/70 Blood Pressure [Right Arm] 111/71 Blood Pressure Mean 91 88 Blood Pressure Mean [Right Arm] 84 Blood Pressure Source [Right Arm] Automatic Cuff Blood Pressure Position [Right Arm] Sitting 02 Sat by Pulse Oximetry 96 99 99 Oxygen Delivery Method Room Air Lab Data Labs: Lab Results 08/25/23 10:01: WBC 11.6 H, RBC 4.28 L, Hgb 12.6 L, Hct 39.9 L, MCV 93.2, MCH 29.5, MCHC 31.7 L, RDW 16.2, Plt Count 268, MPV 7.6, Neut % (Auto) 78.6, Lymph % (Auto) 13.2, Coke % (Auto) 5.6, Eos % (Auto) 2.1, Baso % (Auto) 0.6, Neut # (Auto) 9.1 H, Lymph # (Auto) 1.5, Coke # (Auto) 0.7, Eos # (Auto) 0.2, Baso # (Auto) 0.1, Sodium 139, Potassium 4.0, Chloride 107, Carbon Dioxide 27, Anion Gap 9.0, BUN 31 H, Creatinine 1.20, Estimated Creat Clear 57, Estimated GFR 60, Est GFR ( Amer) 72, Glucose 99, Calcium 9.2, Total Bilirubin 0.6, AST 33, ALT 24, Alkaline Phosphatase 86, Troponin I 0.03, NT-Pro-B Natriuret Pep 840 H, Total Protein 7.3, Albumin 3.5, Globulin 3.8 H, Albumin/Globulin Ratio 0.9 L, Lipase 68 08/25/23 10:14: Urine Color Yellow, Urine Appearance Clear, Urine pH 5.5, Ur Specific Marlin >= 1.030, Urine Protein Negative, Urine Glucose (UA) Negative, Urine Ketones Trace, Urine Blood Negative, Urine Nitrate Negative, Urine Bilirubin Negative, Urine Urobilinogen 1.0, Ur Leukocyte Esterase Negative, Urine RBC Occasional, Urine WBC Occasional, Ur Squamous Epith Cells Occasional, Urine Bacteria 2+, Urine Mucus 3+ 08/25/23 10:01 08/25/23 10:01 Response Orders (Tests/Meds): ED MEDICATIONS Discontinued Medications Generic Name Dose Route Start Last Admin Trade Name Freq PRN Reason Stop Dose Admin Sodium Chloride 1,000 mls @ 999 mls/hr 08/25/23 09:58 08/25/23 10:14 Sod Chlor 0.9% 1000ml Bag IV 08/25/23 10:58 999 mls/hr .Q1H1M ONE Administration ORDERS Category Date Time Status CXR --portable [XR chest portable] Stat Exams 08/25/23 09:58 Taken Complete Blood Count Auto Diff Stat Lab 08/25/23 10:01 Completed Comprehensive Metabolic Panel Stat Lab 08/25/23 10:01 Completed Lipase Stat Lab 08/25/23 10:01 Completed NT Pro Brain Natriuretic Pep. Stat Lab 08/25/23 10:01 Completed Troponin I Q3H Lab 08/25/23 13:00 Ordered Troponin I Q3H Lab 08/25/23 16:00 Ordered Troponin I Stat Lab 08/25/23 10:01 Completed Urinalysis and Microscopic Stat Lab 08/25/23 10:14 Completed Urine Culture Stat Micro 08/25/23 10:14 Received MDM Narrative Medical Decision Narrative: Is a 73-year-old male with history of hypertension, hyperlipidemia, type 2 diabetes, CVA currently on aspirin, chronic chest pain and shortness of breath presenting with shortness of breath. Patient states that he fell about a month prior to this visit and has been having right rib pain since that time. He had a CT done 08/14 which demonstrated mild irregularity of the fourth and fifth distal ribs, which was concerning for possible nondisplaced fractures. Patient denies ever having pain on the side of the chest, or injury to the side of his chest. States that for the past few months he has been getting short of breath with minimal exertion. Has seen cardiology and pulmonology and states nothing was found. Went to his family doctor today, who sent him to the emergency department due to patient still not having answers,, but with no particular concern. Patient denies diaphoresis, nausea or vomiting, fevers or chills, decreased p.o. intake, significant weight loss, smoking history, abdominal pain, or any other concerns. History was obtained via conversation with patient and primary care provider. On arrival, patient hemodynamically stable, alert, oriented x4, appropriate, GCS 15, moving all extremities spontaneously, pupils equal and reactive to light. Full physical exam performed and significant for normotensive, satting appropriate on room air, no acute distress. Cardiopulmonary exam within normal limits. Pulses equal and symmetric. Abdomen soft, nontender, nondistended. No lower extremity edema. Overall very well-appearing. Differential includes microvascular coronary artery disease, CHF, ACS, OR, coronary artery dissection, pneumothorax, PE, dissection, pericarditis, myocarditis, pneumothorax, aortic aneurysm, pneumonia, bronchitis, among others. Workup independently interpreted and significant for nonactionable CBC or chemistry. Troponin negative, BNP nonactionable. Chest x-ray without acute cardiopulmonary space disease. See radiology read for full review of final results. Independent interpretation of EKG shows 70 bpm sinus rhythm. No ST or T wave changes concerning for acute ischemia. Heart score 6. On reevaluation, patient still resting comfortably bed without any symptoms at rest. Given patient's follow-up with cardiology recently, independent chart review demonstrated patient with moderate to severe LAD stenosis. 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 Cardiology was contacted and case was discussed at length, recommended admission for further workup. Hospital medicine team was contacted and case was discussed at length, see their note for recommendations and admission. Because patient high risk for clinical decompensation, deemed appropriate for inpatient admission. Results were relayed to patient who voiced understanding and patient was agreeable to inpatient admission and management. Patient was admitted to the hospital for further definitive management.
[2023-08-25 10:24] LABS: Alanine Aminotransferase 24 U/L (12-78); Albumin Level 3.5 g/dl (3.5-5.0); Albumin/Globulin Ratio 0.9 (1.1-1.8); Alkaline Phosphatase 86 U/L (38-126); Aspartate Amino Transferase 33 U/L (17-59); Bilirubin,Total 0.6 mg/dl (0.2-1.3); Blood Urea Nitrogen 31 mg/dl (9-20); Calcium 9.2 mg/dl (8.4-10.2); Carbon Dioxide 27 mmol/L (22.0-30.0); Creatinine Clearance Estimated 57 mL/min (50-200); Estimated Glomerular Filt Rate 60 ml/min (>60); GFR (African American) 72 ML/MIN (>60); Globulin 3.8 g/dL (1.3-3.2); Glucose 99 mg/dl (74-100); Lipase 68 U/L (23-300); Total Protein,Serum 7.3 g/dl (6.3-8.2)
[2023-08-25 10:34] LABS: NT Pro Brain Natriuretic Pep. 840 pg/mL (0-125)
[2023-08-25 10:36] LABS: Troponin I 0.03 ng/ml (0.00-0.034)
[2023-08-25 10:45] LABS: Mucus,Urine 3+ /lpf
[2023-08-25 10:46] LABS: Bacteria,Urine 2+ /lpf
[2023-08-25 10:47] LABS: WBC,Urine Occasional #/hpf (0-3)
[2023-08-25 10:48] LABS: RBC,Urine Occasional #/hpf (0-3); Squamous Epithelial Cell,Urine Occasional #/hpf (0-5)
--- NOTE | 2023-08-25 11:24 | PC.NURSE ---
called cardiology for Dr Sequeira to speak with about this pt.
--- NOTE | 2023-08-25 11:39 | PC.NURSE ---
Dr. Sequeira speaking with cardiology
--- NOTE | 2023-08-25 12:10 | PC.NURSE ---
called powerhouse helper for admission
--- NOTE | 2023-08-25 12:25 | PC.NURSE ---
report called to edgar hansen
--- NOTE | 2023-08-25 12:49 | P.CONCA_ITS ---
History of Present Illness History of Present Illness Consult date: 08/25/23 Requesting physician: Javy Razo Consult reason: shortness of breath Chief complaint: Shortness of breath Additional Medical History:: Cath 05/2023: IMPRESSION Coronary disease as described above most notably with severe disease in the mid and distal LAD which has not realistically amenable to percutaneous revascularization Severe disease and a small to moderate ramus intermedius as described above Moderate disease in a codominant right coronary Normal ejection fraction Normal left ventricular end-diastolic pressure PLAN 1. There has been a little if any interval coronary artery disease change since April 2020 2. I still recommend continued medical management. Ejection fraction is normal. None of the lesions are realistically amenable to intervention and all would be fraught with high likelihood of complications with delivery of the stents. The long-term patency of the stents and these stenoses would also be dubious at best. Encouragingly patient's coronary disease has not progressed in the last 3 years therefore I recommend maximizing antianginal medications and providing additional encouraging support to patient's prognosis with medical management 3. LDL less than 55 to be achieved with high intensity statin 4. Next mise antianginal medications History of present illness: 73-year-old white male with past medical history of coronary artery disease with known severe disease in the mid and distal LAD which is not amenable to percutaneous revascularization, medical management May 2023, hypertension, hyperlipidemia, carotid artery stenosis and diabetes mellitus presented to emergency department today with complaints of ongoing shortness of breath x 6 months and right rib pain x 1 month since a fall. EKG upon arrival to emergency department shows sinus rhythm at a rate of 70 without acute ischemic changes noted. Labs are as follow: WBC 11.6, hemoglobin 12.6, sodium 139, potassium 4, creatinine 1.2 troponin 0.03 and a proBNP of 840. Patient underwent a chest CT July 2023 which showed borderline mediastinal lymph nodes, bibasilar atelectasis and a mild irregularity of the left fourth and fifth distal ribs. Patient went to his PCP today and was advised to go to ER for ongoing symptoms of shortness of breath. Patient reports he is seeing pulmonology and cardiology for symptoms. Patient was taken to [facility] in May of this year for progressively and worsening shortness of breath which resulted in a medical [facility] heart cath, please see official report below. Patient will be admitted for further evaluation of dyspnea. Patient reports only exertional dyspnea. Patient resting comfortably in bed on exam. [facility] Disclaimer: The information contained in this section may have been updated after the pa sanjay was seen, as this information can be updated by other users. Medical History Rheumatoid arthritis Hypothyroid Atypical angina Hx-TIA (transient ischemic attack) Skin lesion of left ear Right maxillary sinusitis, chronic Dyspnea on exertion Carotid artery stenosis History of CVA (cerebrovascular accident) Diastolic dysfunction HLD (hyperlipidemia) CAD (coronary artery disease) DM2 (diabetes mellitus, type 2) Cerebrovascular accident Surgical History Hx of cardiac cath Family History Other Cancer Diabetes Stroke Social History (Updated 08/25/23 @ 12:52 by Elaine Rodriguez RN) Smoking Status: Never smoker alcohol intake: former substance use type: denies use current occupational status: other Travel in the last 8 weeks: None household members: spouse housing: house marital status: service: No snf: No current occupational exposures/hazards: No caffeine: Yes Review of Systems Review of Systems Review of systems:: pertinent systems reviewed and negative unless documented below *Cardiovascular Cardiovascular: Reports dyspnea *Respiratory Respiratory: Reports dyspnea Exam Data for Last 24 hours Vital signs and Labs for Last 24 Hours: Temp Pulse Resp BP Pulse Ox O2 Del Method 98.1 F 73 18 125/77 99 Room Air 08/25/23 12:46 08/25/23 12:46 08/25/23 12:46 08/25/23 12:46 08/25/23 12:00 08/25/23 12:46 Laboratory Results - last 24 hr 08/25/23 10:01: WBC 11.6 H, RBC 4.28 L, Hgb 12.6 L, Hct 39.9 L, MCV 93.2, MCH 29.5, MCHC 31.7 L, RDW 16.2, Plt Count 268, MPV 7.6, Neut % (Auto) 78.6, Lymph % (Auto) 13.2, [place] % (Auto) 5.6, Eos % (Auto) 2.1, Baso % (Auto) 0.6, Neut # (Auto) 9.1 H, Lymph # (Auto) 1.5, [place] # (Auto) 0.7, Eos # (Auto) 0.2, Baso # (Auto) 0.1, Sodium 139, Potassium 4.0, Chloride 107, Carbon Dioxide 27, Anion Gap 9.0, BUN 31 H, Creatinine 1.20, Estimated Creat Clear 57, Estimated GFR 60, Est GFR ( Amer) 72, Glucose 99, Calcium 9.2, Total Bilirubin 0.6, AST 33, ALT 24, Alkaline Phosphatase 86, Troponin I 0.03, NT-Pro-B Natriuret Pep 840 H, Total Protein 7.3, Albumin 3.5, Globulin 3.8 H, Albumin/Globulin Ratio 0.9 L, Lipase 68 08/25/23 10:14: Urine Color Yellow, Urine Appearance Clear, Urine pH 5.5, Ur Specific [place] >= 1.030, Urine Protein Negative, Urine Glucose (UA) Negative, Urine Ketones Trace, Urine Blood Negative, Urine Nitrate Negative, Urine Bilirubin Negative, Urine Urobilinogen 1.0, Ur Leukocyte Esterase Negative, Urine RBC Occasional, Urine WBC Occasional, Ur Squamous Epith Cells Occasional, Urine Bacteria 2+, Urine Mucus 3+ I & O for Last 24 hours: Intake & Output 08/22/23 08/23/23 08/24/23 08/25/23 23:59 23:59 23:59 23:59 Weight 158 lb Constitutional Constitutional: no acute distress *Routine Respiratory Exam Respiratory: Present CTA bilaterally and symmetric chest movement *Routine Cardiovascular Exam Cardiovascular: Present RRR, Normal S1 and Normal S2 *Routine Abdominal Exam Abdominal: Present soft and normoactive bowel sounds; Absent tenderness *Routine Extremities Exam Extremities: Present full ROM and normal capillary refill; Absent edema *Routine Skin Exam Skin: Present intact, dry and warm Detailed Neck Exam: Thyroids Thyroid: Absent bruit Meds Home Medications and Allergies Home Medications Medication Instructions Recorded Confirmed Type aspirin 81 mg tablet,delayed 81 mg PO DAILY heart health 04/18/20 08/25/23 History release (Adult Low Dose Aspirin) levothyroxine 25 mcg capsule 25 mcg PO DAILY thyroid 11/21/22 08/25/23 History metformin 1,000 mg tablet 1,000 mg PO BID 90 days #180 tabs 04/22/23 08/25/23 Rx tramadol 50 mg tablet 50 mg PO Q6H PRN pain #30 tabs 07/21/23 08/25/23 Rx atorvastatin 10 mg tablet 10 mg PO HS 08/25/23 08/25/23 History bisoprolol fumarate 5 mg tablet 2.5 mg PO HS HTN 08/25/23 08/25/23 History furosemide 20 mg tablet 20 mg PO DAILY 08/25/23 08/25/23 History hydroxychloroquine 200 mg tablet 200 mg PO BID 08/25/23 08/25/23 History prednisone 5 mg tablet 15 mg PO DAILY 08/25/23 08/25/23 History New Prescriptions to Start Prescriptions: Allergies Allergy/AdvReac Type Severity Reaction Status Date / Time No Known Allergies Allergy Verified 08/25/23 08:49 Assessment and Plan *Assessment and plan (1) CAD (coronary artery disease): Status: Chronic Qualifiers: Associated angina: with other forms of angina Coronary Disease- Associated Artery/Lesion type: [place] artery [place] vs. transplanted heart: [place] heart Qualified Code(s): I25.118 - Atherosclerotic heart disease of [place] coronary artery with other forms of angina pectoris Category: Medical Code(s): I25.10 - Atherosclerotic heart disease of [place] coronary artery without angina pectoris (2) HLD (hyperlipidemia): Status: Chronic Qualifiers: Hyperlipidemia type: mixed hyperlipidemia Qualified Code(s): E78.2 - Mixed hyperlipidemia Category: Medical Code(s): E78.5 - Hyperlipidemia, unspecified (3) DM2 (diabetes mellitus, type 2): Status: Chronic Qualifiers: Diabetes mellitus complication status: without complication Diabetes mellitus prison insulin use: without prison use Qualified Code(s): E11.9 - Type 2 diabetes mellitus without complications Category: Medical Code(s): E11.9 - Type 2 diabetes mellitus without complications (4) Dyspnea on exertion: Status: Acute Category: Medical Code(s): R06.09 - Other forms of dyspnea (5) HTN (hypertension): Status: Chronic Qualifiers: Hypertension type: essential hypertension Qualified Code(s): I10 - Essential (primary) hypertension Category: Medical Code(s): I10 - Essential (primary) hypertension Plan CAD Anginal equivalent dyspnea -Troponin 0.03 -BNP 840 -EKG negative for acute ischemic changes -[facility] 05/2023 Medical mangament, see note above -Continue aspirin 81 mg p.o. daily, atorvastatin 40 mg p.o. daily. Increase bisoprolol to 5 mg p.o. daily and add isosorbide 60 mg p.o. daily -Echocardiogram is pending Hyperlipidemia -LDL goal less than 55. LDL is pending. Increase atorvastatin to 40 mg daily Hypertension -Currently well-controlled CV summary 08/25/2023: Echocardiogram is pending. Increase bisoprolol and add isosorbide 60 mg p.o. daily. Continue to monitor.
--- NOTE | 2023-08-25 13:02 | CA_ITS ---
APPROVED REPORT EXAM: Comprehensive 2D, Doppler, and color-flow Echocardiogram [facility]eder: Yesenia Mandel RVT Ht: 5 ft 10 in Wt: 162lbs BSA: 1.91 BP: 125/77 mmHg Indications: SOA,CAD,DM,HTN,HLD 2D Dimensions LA Volume 51.10 mL LA Volume Index 26.75 mL/m2 (M/F) 16-34 M-Mode Dimensions RVDd 3.18 cm (0.9-2.6) LA Diam 3.80 cm (1.9-4.0) LVDd 4.51 cm (3.5-5.7) LVDs 3.04 cm (3.5-5.7) IVSd 1.07 cm (0.6-1.1) PWd 0.68 cm (0.6-1.1) EF (Teich) 61.00% FS 32.60% EDV (Teich) 92.90 mL TAPSE 2.20 (<1.7) ESV (Teich) 36.20 mL LV Diastology E Decel Time 233 (160-240 msec) E/A Ratio 1.0 Aortic Valve ELFEGO Index 0.67 cm2/m2 AoV Peak Joseph. 210.0 (50-130 cm/s) AO Peak GR. 17.70 mmHg AO Mean GR. 9.50 (<5 mmHg) AO VTI 43.4 (18-25 cm) ELFEGO (VTI) 1.31 (2.5-4.5 cm2) Mitral Valve MV E Max Joseph. 96.0 (40-130 cm/s) MV A Velocity 96.0 (40-130 cm/s) E/A Ratio 1.00 MV PHT 68.0 ms Pulmonary Valve PV Peak Velocity 76.0 (50-150 cm/s) Tricuspid Valve TR P. Velocity 336.00 cm/s RAP Estimate 10.00 mmHg RVSP 55.10 mmHg Left Ventricle The left ventricle is normal size. The left ventricular systolic function is normal. The left ventricular ejection fraction is within the normal range. There is increased LV wall thickness. There is normal LV segmental wall motion. Grade 2 diastolic dysfunction is present. LVEF is 55%. Right Ventricle Right ventricle is moderately dilated. Right ventricle is mildly hypokinetic. Atria The left atrium size is normal. The right atrium size is normal. There is no Doppler evidence of interatrial shunt. Aortic Valve The aortic valve is moderately thickened. At least mild aortic stenosis is present. The Doppler gradients obtained in the study may underestimate the severity of . Trace aortic regurgitation. Mitral Valve The mitral valve leaflets are mildly thickened. Trace mitral regurgitation. No evidence of mitral valve stenosis. Tricuspid Valve The tricuspid valve leaflets are thin and pliable. Moderate tricuspid regurgitation. RVSP is 45-50 mmHg. Pulmonic Valve The pulmonary valve is normal in structure. Mild pulmonic regurgitation. Great Vessels The aortic root is not well-visualized. IVC is normal in size and collapses >50% with inspiration. Pericardium There is no pericardial effusion. Other Information Study Quality: Fair Conclusion Normal LV systolic function. Grade 2 diastolic dysfunction. Moderate RV dilation with mild reduction in RV function. At least mild aortic stenosis is present. The Doppler gradients obtained in the study may underestimate the severity of . Moderate tricuspid regurgitation. RVSP is 45-50 mmHg. Electronically signed by : Clara Rebolledo MD 08/26/2023 11:14:17
--- NOTE | 2023-08-25 13:19 | HMH.PHAINT1 ---
Pharmacy Intervention Comments: HOME MEDICATION LIST VERIFIED VIA OUTSIDE PHARMACY AND OFFICE VISIT
[2023-08-25 13:37] LABS: Troponin I 0.03 ng/ml (0.00-0.034)
[2023-08-25] MEDS: ASPIRIN EC 81MG TABLET 81 MG PO (14:15)
[2023-08-25] MEDS: ISOSORBIDE MONO 60MG TAB.ER.24H 60 MG PO (14:15)
[2023-08-25] MEDS: HEPARIN SODIUM 5,000 UNIT/ML VIAL 5000 UNIT SQ ×2 (14:15→20:46)
[2023-08-25 16:32] LABS: Troponin I 0.02 ng/ml (0.00-0.034)
--- NOTE | 2023-08-25 16:50 | P.HP_ITS ---
History of Present Illness *Admission Date: 08/25/23 *Reason for visit:: SOB PFSH [facility] Disclaimer: The information contained in this section may have been updated after the patient was seen, as this information can be updated by other users. Medical History Rheumatoid arthritis Hypothyroid Atypical angina Hx-TIA (transient ischemic attack) Skin lesion of left ear Right maxillary sinusitis, chronic Dyspnea on exertion Carotid artery stenosis History of CVA (cerebrovascular accident) Diastolic dysfunction HLD (hyperlipidemia) CAD (coronary artery disease) DM2 (diabetes mellitus, type 2) Cerebrovascular accident Surgical History Hx of cardiac cath Family History Other Cancer Diabetes Stroke Social History (Updated 08/25/23 @ 12:52 by Elaine Rodriguez RN) Smoking Status: Never smoker alcohol intake: former substance use type: denies use current occupational status: other Travel in the last 8 weeks: None household members: spouse housing: house marital status: service: No intermediate: No current occupational exposures/hazards: No caffeine: Yes Review of Systems Review of Systems Review of systems (narrative): as per [facility] Meds Home Medications and Allergies Home Medications Medication Instructions Recorded Confirmed Type aspirin 81 mg tablet,delayed 81 mg PO DAILY heart health 04/18/20 08/25/23 History release (Adult Low Dose Aspirin) levothyroxine 25 mcg capsule 25 mcg PO DAILY thyroid 11/21/22 08/25/23 History metformin 1,000 mg tablet 1,000 mg PO BID 90 days #180 tabs 04/22/23 08/25/23 Rx tramadol 50 mg tablet 50 mg PO Q6H PRN pain #30 tabs 07/21/23 08/25/23 Rx atorvastatin 10 mg tablet 10 mg PO HS 08/25/23 08/25/23 History bisoprolol fumarate 5 mg tablet 2.5 mg PO HS HTN 08/25/23 08/25/23 History furosemide 20 mg tablet 20 mg PO DAILY 08/25/23 08/25/23 History hydroxychloroquine 200 mg tablet 200 mg PO BID 08/25/23 08/25/23 History prednisone 5 mg tablet 15 mg PO DAILY 08/25/23 08/25/23 History New Prescriptions to Start Prescriptions: Allergies Allergy/AdvReac Type Severity Reaction Status Date / Time No Known Allergies Allergy Verified 08/25/23 08:49 Exam Data for Last 24 hours Vital signs and Labs for Last 24 Hours: Temp Pulse Resp BP Pulse Ox O2 Del Method 97.7 F 64 21 117/64 98 Room Air 08/25/23 15:52 08/25/23 15:52 08/25/23 15:52 08/25/23 15:52 08/25/23 15:52 08/25/23 15:52 Laboratory Results - last 24 hr 08/25/23 10:01: WBC 11.6 H, RBC 4.28 L, Hgb 12.6 L, Hct 39.9 L, MCV 93.2, MCH 29.5, MCHC 31.7 L, RDW 16.2, Plt Count 268, MPV 7.6, Neut % (Auto) 78.6, Lymph % (Auto) 13.2, [place] % (Auto) 5.6, Eos % (Auto) 2.1, Baso % (Auto) 0.6, Neut # (Auto) 9.1 H, Lymph # (Auto) 1.5, [place] # (Auto) 0.7, Eos # (Auto) 0.2, Baso # (Auto) 0.1, Sodium 139, Potassium 4.0, Chloride 107, Carbon Dioxide 27, Anion Gap 9.0, BUN 31 H, Creatinine 1.20, Estimated Creat Clear 57, Estimated GFR 60, Est GFR ( Amer) 72, Glucose 99, Calcium 9.2, Total Bilirubin 0.6, AST 33, ALT 24, Alkaline Phosphatase 86, Troponin I 0.03, NT-Pro-B Natriuret Pep 840 H, Total Protein 7.3, Albumin 3.5, Globulin 3.8 H, Albumin/Globulin Ratio 0.9 L, Lipase 68 08/25/23 10:14: Urine Color Yellow, Urine Appearance Clear, Urine pH 5.5, Ur Specific [place] >= 1.030, Urine Protein Negative, Urine Glucose (UA) Negative, Urine Ketones Trace, Urine Blood Negative, Urine Nitrate Negative, Urine Bilirubin Negative, Urine Urobilinogen 1.0, Ur Leukocyte Esterase Negative, Urine RBC Occasional, Urine WBC Occasional, Ur Squamous Epith Cells Occasional, Urine Bacteria 2+, Urine Mucus 3+ 08/25/23 13:10: Troponin I 0.03 08/25/23 13:52: LDL Cholesterol Direct 78.50 L 08/25/23 15:45: Troponin I 0.02 I & O for Last 24 hours: Intake & Output 08/22/23 08/23/23 08/24/23 08/25/23 23:59 23:59 23:59 23:59 Intake Total 450 / 450 Output Total 0 / 0 Balance 450 / 450 Weight 73.567 kg Constitutional Constitutional: no acute distress *Routine HEENT Exam Head: Present normocephalic Eye: Present EOMI and PERRL ENT: Present mucous membranes moist *Routine Neck Exam Neck: Present supple; Absent lymphadenopathy *Routine Respiratory Exam Respiratory: Present CTA bilaterally *Routine Cardiovascular Exam Cardiovascular: Present RRR *Routine Abdominal Exam Abdominal: Present soft and normoactive bowel sounds; Absent tenderness *Routine Rectal Exam Rectal:: deferred *Routine Genitalia Exam Genitalia:: deferred *Routine Extremities Exam Extremities: Absent cyanosis, clubbing or edema *Routine Skin Exam Skin: Present warm; Absent rash *Routine Neurological Exam Neurological: Present alert and oriented X3 Assessment and Plan *Assessment and plan (1) Dyspnea on exertion: Status: Chronic Category: Medical Code(s): R06.09 - Other forms of dyspnea (2) HTN (hypertension): Status: Chronic Qualifiers: Hypertension type: essential hypertension Qualified Code(s): I10 - Essential (primary) hypertension Category: Medical Code(s): I10 - Essential (primary) hypertension (3) HLD (hyperlipidemia): Status: Chronic Qualifiers: Hyperlipidemia type: mixed hyperlipidemia Qualified Code(s): E78.2 - Mixed hyperlipidemia Category: Medical Code(s): E78.5 - Hyperlipidemia, unspecified (4) CAD (coronary artery disease): Status: Chronic Qualifiers: Associated angina: with other forms of angina Coronary Disease- Associated Artery/Lesion type: [place] artery [place] vs. 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 He denied CP, SOB, N/V, Fever, chills, Diarrhea, constipation. A/P SOB on exertion CAD HTN HLD DM consult cardiology monitor troponin monitor on telemetry ASA, statin bisoprolol Imdur Echo ordered ISS CXR reviewed shows atelactasis, check PCT level DVT PPx - Heparin
--- NOTE | 2023-08-25 18:32 | PC.NURSE ---
NO ACUTE CHANGES SINCE ARRIVING TO THE FLOOR. PT HAS NOT C/O CHEST PAIN OR SOB. VSS. REMAINS ON ROOM AIR.
[2023-08-25] MEDS: ACETAMINOPHEN 325MG TAB 650 MG PO (20:46)
[2023-08-25] MEDS: ATORVASTATIN 40MG TABLET 40 MG PO (20:46)
[2023-08-25] MEDS: BISOPROLOL 5MG TABLET 5 MG PO (20:46)
[2023-08-25] MEDS: PATIENT'S OWN HOME MEDICATION (Metformin 1,000 mg tablet) 1000 EACH PO (20:48)
[2023-08-26] VITALS (11 sets, daily range): BP systolic 90–134; BP diastolic 48–78; PULSE 60–82; RESP 16–20; TEMP 36.6–36.9; O2SAT 90–95; BMI 23.2
--- NOTE | 2023-08-26 05:02 | PC.NURSE ---
Pt alert and oriented. remained at bedside throughout night. Pt complained of right sided pain one time, treated per jul. Palpated area and patient states the pain only comes and goes and describes as a ache. Pt states he has a cracked rib on the left side from a past fall. Pt has had no other complaints throughout shift. Remains on room air. Call light in reach.
[2023-08-26 05:37] LABS: POC Glucose,Bedside 80 (70-110)
[2023-08-26] MEDS: HEPARIN SODIUM 5,000 UNIT/ML VIAL 5000 UNIT SQ ×2 (06:07→13:22)
[2023-08-26 06:25] LABS: Eosinophils # 0.3 K/mm3 (0.0-0.4); Lymphocytes # 1.3 K/mm3 (0.7-4.5); Neutrophils # 5.2 K/mm3 (1.8-7.8); Red Cell Distribution Width 16.5 % (11.5-17.5); White Blood Count 7.3 K/mm3 (4.8-10.8)
[2023-08-26 06:28] LABS: Chloride 109 mmol/L (98-107); Sodium 135 mmol/L (136-145)
[2023-08-26 06:31] LABS: Blood Urea Nitrogen 29 mg/dl (9-20); Carbon Dioxide 23 mmol/L (22.0-30.0); Creatinine Clearance Estimated 71 mL/min (50-200); Estimated Glomerular Filt Rate 74 ml/min (>60); GFR (African American) 89 ML/MIN (>60); Glucose 89 mg/dl (74-100)
[2023-08-26 06:32] LABS: Calcium 8.4 mg/dl (8.4-10.2)
[2023-08-26 06:34] LABS: Basophils % 0.5 % (0.1-2.0); Eosinophils % 3.6 % (0.1-12.0); Hematocrit 32.3 % (42.0-52.0); Lymphocytes % 17.6 % (10-50); Mean Corpuscular HGB Conc 30.9 g/dL (31.8-35.4); Mean Corpuscular Hemoglobin 29.1 pg (27.0-31.2); Mean Platelet Volume 7.8 fl (7.4-10.4); Monocytes # 0.5 K/mm3 (0.1-1.0); Monocytes % 6.9 % (1.7-9.3); Neutrophils % 71.4 % (37.0-80.0); Platelet Count 187 K/mm3 (142-424); Red Blood Count 3.43 M/mm3 (4.60-6.20)
[2023-08-26] MEDS: LEVOTHYROXINE 25MCG (0.025MG) TAB 25 MCG PO (09:00)
[2023-08-26] MEDS: FUROSEMIDE 20MG TABLET 20 MG PO (09:00)
[2023-08-26] MEDS: HYDROXYCHLOROQUINE SULFATE 200MG TABLET 200 MG PO (09:00)
[2023-08-26] MEDS: ASPIRIN EC 81MG TABLET 81 MG PO (09:00)
[2023-08-26] MEDS: ISOSORBIDE MONO 60MG TAB.ER.24H 60 MG PO (09:00)
[2023-08-26] MEDS: predniSONE 5MG TAB 15 MG PO (09:01)
--- NOTE | 2023-08-26 09:19 | EXP.CARD.PN ---
Subjective Subjective Date: 08/26/23 Time: 08:00 Principal diagnosis: Dyspnea on exertion Interval history: Patient reports slight improvement in symptoms with additional antianginal medications added. Echocardiogram is pending. Denies chest pain. Morning labs reviewed. Exam Data for Last 24 hours Vital signs and Labs for Last 24 Hours: Temp Pulse Resp BP Pulse Ox O2 Del Method 98.1 F 71 16 95/50 L 90 L Room Air 08/26/23 07:49 08/26/23 07:49 08/26/23 07:49 08/26/23 07:49 08/26/23 07:49 08/26/23 07:49 Laboratory Results - last 24 hr 08/25/23 10:01: WBC 11.6 H, RBC 4.28 L, Hgb 12.6 L, Hct 39.9 L, MCV 93.2, MCH 29.5, MCHC 31.7 L, RDW 16.2, Plt Count 268, MPV 7.6, Neut % (Auto) 78.6, Lymph % (Auto) 13.2, [place] % (Auto) 5.6, Eos % (Auto) 2.1, Baso % (Auto) 0.6, Neut # (Auto) 9.1 H, Lymph # (Auto) 1.5, [place] # (Auto) 0.7, Eos # (Auto) 0.2, Baso # (Auto) 0.1, Sodium 139, Potassium 4.0, Chloride 107, Carbon Dioxide 27, Anion Gap 9.0, BUN 31 H, Creatinine 1.20, Estimated Creat Clear 57, Estimated GFR 60, Est GFR ( Amer) 72, Glucose 99, Calcium 9.2, Total Bilirubin 0.6, AST 33, ALT 24, Alkaline Phosphatase 86, Troponin I 0.03, NT-Pro-B Natriuret Pep 840 H, Total Protein 7.3, Albumin 3.5, Globulin 3.8 H, Albumin/Globulin Ratio 0.9 L, Lipase 68 08/25/23 10:14: Urine Color Yellow, Urine Appearance Clear, Urine pH 5.5, Ur Specific [place] >= 1.030, Urine Protein Negative, Urine Glucose (UA) Negative, Urine Ketones Trace, Urine Blood Negative, Urine Nitrate Negative, Urine Bilirubin Negative, Urine Urobilinogen 1.0, Ur Leukocyte Esterase Negative, Urine RBC Occasional, Urine WBC Occasional, Ur Squamous Epith Cells Occasional, Urine Bacteria 2+, Urine Mucus 3+ 08/25/23 13:10: Troponin I 0.03 08/25/23 13:52: LDL Cholesterol Direct 78.50 L 08/25/23 15:45: Troponin I 0.02 08/26/23 05:27: POC Glucose 80 08/26/23 05:29: WBC 7.3 D, RBC 3.43 L, Hgb 10.0 L D, Hct 32.3 L, MCV 94.0, MCH 29.1, MCHC 30.9 L, RDW 16.5, Plt Count 187 D, MPV 7.8, Neut % (Auto) 71.4, Lymph % (Auto) 17.6, [place] % (Auto) 6.9, Eos % (Auto) 3.6, Baso % (Auto) 0.5, Neut # (Auto) 5.2, Lymph # (Auto) 1.3, [place] # (Auto) 0.5, Eos # (Auto) 0.3, Baso # (Auto) 0.0, Sodium 135 L, Potassium 4.0, Chloride 109 H, Carbon Dioxide 23, Anion Gap 7.0, BUN 29 H, Creatinine 1.00, Estimated Creat Clear 71, Estimated GFR 74, Est GFR ( Amer) 89 D, Glucose 89, Calcium 8.4 I & O for Last 24 hours: Intake & Output 08/23/23 08/24/23 08/25/23 08/26/23 23:59 23:59 23:59 23:59 Intake Total 810 / 810 480 / 480 Output Total 0 / 0 0 / 0 Balance 810 / 810 480 / 480 Weight 162 lb 2.999 oz 162 lb 6.985 oz Constitutional Constitutional: no acute distress *Routine Respiratory Exam Respiratory: Present CTA bilaterally and symmetric chest movement *Routine Cardiovascular Exam Cardiovascular: Present RRR, Normal S1 and Normal S2 *Routine Abdominal Exam Abdominal: Present soft and normoactive bowel sounds; Absent tenderness *Routine Extremities Exam Extremities: Present full ROM and normal capillary refill; Absent edema *Routine Skin Exam Skin: Present intact, dry and warm Detailed Neck Exam: Thyroids Thyroid: Absent bruit Progress Note: A&P Assessment and plan (1) Dyspnea on exertion: Status: Chronic (2) HTN (hypertension): Status: Chronic (3) HLD (hyperlipidemia): Status: Chronic (4) CAD (coronary artery disease): Status: Chronic (5) DM2 (diabetes mellitus, type 2): Status: Chronic Assessment and Plan Assessment and Plan for All Diagnoses:: CAD Anginal equivalent dyspnea -Troponin 0.03 -BNP 840 -EKG negative for acute ischemic changes -[facility] 05/2023 Medical management, see note above -Continue aspirin 81 mg p.o. daily, atorvastatin 40 mg p.o. daily. Continue bisoprolol 5 mg p.o. daily and decrease isosorbide to 30 mg p.o. daily due to hypotension with 60mg. -Echocardiogram: Preliminary report shows at least mild aortic stenosis, however, images are not ideal, mild TR, RVSP of 45, dilated and reduced function of right ventricle. Official read is pending. Will obtain CTA chest to rule out PE given soa and near syncope. Hyperlipidemia -LDL goal less than 55. LDL is 78. Increase atorvastatin to 40 mg daily. Hypertension -Patient became hypotensive with additional antianginal medications. Systolic blood pressure in the 90s. Imdur dose reduced. CV summary 08/26/2023: CTA pending. If CTA chest is negative patient is CV stable for discharge home. Patient can be discharged home with medications listed below. Please have patient follow-up in cardiology clinic in 1 week for reevaluation. Aspirin 81 mg p.o. daily Atorvastatin 40 mg p.o. daily Bisoprolol 5 mg p.o. daily Imdur 30 mg p.o. daily
--- NOTE | 2023-08-26 10:29 | PC.NURSE ---
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 Original Note: RN heard a noise outside of patient's room. RN went into room and patient was laying on side on the ground. Patient stated having a bowel movement and tried to get up, patient states feeling dizzy and falling. Patient's had been helping patient to and from bathroom and did not help patient to the restroom this time. Patient also had on non-slip socks at this time. At 1020 patient was laying on his side and was founds on the ground, vital signs obtained BP 124/62, Heart rate 82, RR 18, and 93% on RA. Patient [id number] some back pain at this time. VS rechecked at 1025 after patient was helped to a seated position, BP 117/66 and HR 77. At 1029 patient was assisted to a standing position by staff and then seated in recliner. Patient's VS at this time were BP 113/70 and HR 80. Pull alarm attached at this time and patient educated that patient needs to call out for help to the restroom. Hospitalist informed and came to bed side, xrays ordered. Breanne from cardiology contacted and she ordered a 250 Ml bolus r/t orthostatic BP.
--- NOTE | 2023-08-26 11:08 | CT_ITS ---
PROCEDURE INFORMATION: Exam: CTA Chest With Contrast Exam date and time: 08/26/2023 12:02 PM Age: 73 years old Clinical indication: Shortness of breath; Additional info: SOA and near syncope TECHNIQUE: Imaging protocol: Computed tomographic angiography of the chest with contrast. Exam focused on the arteries. 3D rendering (Not supervised by radiologist): MIP and/or 3D reconstructed images were created by the technologist. Radiation optimization: All CT scans at this facility use at least one of these dose optimization techniques: automated exposure control; mA and/or kV adjustment per patient size (includes targeted exams where dose is matched to clinical indication); or iterative reconstruction. Contrast material: ISOVUE; Contrast volume: 70 ml; Contrast route: INTRAVENOUS (IV); COMPARISON: 1. CT CHEST WO CON 08/15/2023 7:08 AM 2. CR XR CHEST PORTABLE 08/25/2023 10:02 AM 3. CR XR RIBS BI MIN 4V W CXR1V 07/18/2023 11:51 AM FINDINGS: Pulmonary arteries: There is no evidence for clinically relevant pulmonary arterial filling defect. Tiny distal filling defects may be present but are of dubious clinical significance. Aorta: There is atherosclerotic disease of the visualized aorta and its major branch vessels. Lungs: Scattered areas of bronchial wall thickening which are likely chronic inflammatory. A few areas of subpleural reticulation are noted, nonspecific. There are scattered areas of emphysema throughout the lungs. There is diffuse bronchiectasis. Pleural spaces: Unremarkable. No pneumothorax. No pleural effusion. Heart: Unremarkable. No cardiomegaly. No pericardial effusion. Lymph nodes: There are mildly prominent mediastinal lymph nodes which are nonenlarged. There are calcified mediastinal lymph nodes likely reflecting prior granulomatous disease. Liver: There is early morphologic changes of cirrhosis with volume redistribution. No concerning focal liver lesion. Bones/joints: There is diffuse degenerative disease of the visualized osseous structures. Soft tissues: Unremarkable. IMPRESSION: 1. Chronic interstitial changes suggesting underlying pulmonary fibrosis. 2. No dense parenchymal consolidation, pleural effusion, or pneumothorax. 3. No evidence for clinically relevant pulmonary arterial filling defect. COMMENTS: The presence of pulmonary emphysema on CT is an independent risk factor for lung cancer. In the absence of a history or active diagnosis of lung cancer, it is recommended that this patient with emphysema be evaluated for enrollment in a low dose CT lung cancer screening program.
--- NOTE | 2023-08-26 11:17 | XR_ITS ---
FINAL REPORT CLINICAL HISTORY: fall/back pain FINDINGS: 3 views of the lumbar spine were obtained. There is a mild L4 superior endplate compression fracture of uncertain age. There is approximately 20% loss of anterior height at this level. No other fracture is identified. Mild degenerative changes are seen with multilevel osteophytes. IMPRESSION: Mild L4 superior endplate compression fracture of uncertain age. This could be further evaluated with CT or MRI. Multilevel mild degenerative changes. Authenticated and ERN
--- NOTE | 2023-08-26 11:17 | XR_ITS ---
FINAL REPORT CLINICAL HISTORY: fall..pain FINDINGS: 2 views of the mid and distal right femur were obtained. There is no evidence of fracture. Mild vascular calcifications are seen. IMPRESSION: No acute bony abnormality. Authenticated and ERN
--- NOTE | 2023-08-26 11:17 | XR_ITS ---
FINAL REPORT CLINICAL HISTORY: fall..pain FINDINGS: 2 views of the mid and distal left femur were obtained. There is no evidence of fracture. No bony mass is identified. There are mild vascular calcifications. IMPRESSION: No acute bony abnormality. Authenticated and ERN
--- NOTE | 2023-08-26 11:17 | XR_ITS ---
FINAL REPORT CLINICAL HISTORY: fall..pain FINDINGS: 3 views of the pelvis and left hip were obtained. There is no evidence of fracture or dislocation. Mild degenerative changes are noted of the left hip. No soft tissue abnormality is seen. IMPRESSION: No acute bony abnormality. If the patient's symptoms are persistent or severe, CT or MRI may be helpful. Authenticated and ERN
--- NOTE | 2023-08-26 11:17 | XR_ITS ---
FINAL REPORT CLINICAL HISTORY: fall.pain FINDINGS: 2 views of the right hip were obtained. There is no evidence of fracture or dislocation. Mild degenerative changes are noted. IMPRESSION: No fracture or acute bony abnormality. If the patient's symptoms are persistent or severe, CT or MRI may be helpful. Authenticated and ERN
[2023-08-26] MEDS: 0.9 % SODIUM CHLORIDE 250 ML 999 ML IV (11:20)
--- NOTE | 2023-08-26 11:27 | XR_ITS ---
FINAL REPORT CLINICAL HISTORY: .falll,,,pain FINDINGS: 2 views of the sacrum and coccyx were obtained. There is no evidence of fracture. Mild degenerative changes are noted of the SI joints. IMPRESSION: No fracture or acute bony abnormality identified. Authenticated and ERN
--- NOTE | 2023-08-26 11:27 | XR_ITS ---
FINAL REPORT CLINICAL HISTORY: fall..pain FINDINGS: 2 views of the thoracic spine were obtained. No thoracic spine fractures identified. The bony alignment is normal. Mild degenerative changes are seen. IMPRESSION: No fracture or acute bony abnormality identified. Authenticated and ERN
[2023-08-26 11:47] LABS: POC Glucose,Bedside 106 (70-110)
[2023-08-26] MEDS: IOPAMIDOL-370 (76%);100ML BOTTLE 70 ML IV (12:13)
[2023-08-26] MEDS: 0.9 % SODIUM CHLORIDE 50 ML VIAL 40 ML IV (12:13)
[2023-08-26] MEDS: SODIUM CHLORIDE 0.9% 10ML SYR (RAD ONLY) 10 ML IV (12:13)
[2023-08-26] MEDS: ACETAMINOPHEN 325MG TAB 650 MG PO (14:12)
--- NOTE | 2023-08-26 15:46 | EXP.DC.SUM ---
General Admission date:: 08/25/23 Discharge date: 09/09/23 HPI HPI HPI: Patient is a 73-year-old male with past medical history of CAD, diabetes mellitus, hypertension hyperlipidemia carotid stenosis who presents to the hospital due to difficulty breathing especially on exertion. He denied CP, SOB, N/V, Fever, chills, Diarrhea, constipation. If CTA chest is negative patient is CV stable for discharge home. Patient can be discharged home with medications listed below. Please have patient follow-up in cardiology clinic in 1 week for reevaluation. Aspirin 81 mg p.o. daily Atorvastatin 40 mg p.o. daily Bisoprolol 5 mg p.o. daily Imdur 30 mg p.o. daily Hospital Course Hospital Course Hospital Course: Patient is a 73-year-old male with past medical history of CAD, diabetes mellitus, hypertension hyperlipidemia carotid stenosis who presents to the hospital due to difficulty breathing especially on exertion. He denied CP, SOB, N/V, Fever, chills, Diarrhea, constipation. Cardiology was consulted, patient evaluated per cardiology, per cardiology If CTA chest is negative patient is CV stable for discharge home. Patient can be discharged home with medications listed below. Please have patient follow-up in cardiology clinic in 1 week for reevaluation. Aspirin 81 mg p.o. daily Atorvastatin 40 mg p.o. daily Bisoprolol 5 mg p.o. daily Imdur 30 mg p.o. daily Exam Data for Last 24 hours Vital signs and Labs for Last 24 Hours: Temp Pulse Resp BP Pulse Ox O2 Del Method 98.1 F 80 18 113/70 93 L Room Air 08/26/23 07:49 08/26/23 10:29 08/26/23 10:20 08/26/23 10:29 08/26/23 10:20 08/26/23 13:00 Laboratory Results - last 24 hr 08/25/23 15:45: Troponin I 0.02 08/26/23 05:27: POC Glucose 80 08/26/23 05:29: WBC 7.3 D, RBC 3.43 L, Hgb 10.0 L D, Hct 32.3 L, MCV 94.0, MCH 29.1, MCHC 30.9 L, RDW 16.5, Plt Count 187 D, MPV 7.8, Neut % (Auto) 71.4, Lymph % (Auto) 17.6, [place] % (Auto) 6.9, Eos % (Auto) 3.6, Baso % (Auto) 0.5, Neut # (Auto) 5.2, Lymph # (Auto) 1.3, [place] # (Auto) 0.5, Eos # (Auto) 0.3, Baso # (Auto) 0.0, Sodium 135 L, Potassium 4.0, Chloride 109 H, Carbon Dioxide 23, Anion Gap 7.0, BUN 29 H, Creatinine 1.00, Estimated Creat Clear 71, Estimated GFR 74, Est GFR ( Amer) 89 D, Glucose 89, Calcium 8.4 08/26/23 11:39: POC Glucose 106 I & O for Last 24 hours: Intake & Output 08/23/23 08/24/23 08/25/23 08/26/23 23:59 23:59 23:59 23:59 Intake Total 810 / 810 960 / 960 Output Total 0 / 0 0 / 0 Balance 810 / 810 960 / 960 Weight 73.567 kg 73.68 kg Results Data Completed and Pending Labs on day of discharge: Labs from last 24 hours 08/26/23 08/26/23 08/26/23 11:39 05:29 05:27 WBC 7.3 D RBC 3.43 L Hgb 10.0 L D Hct 32.3 L MCV 94.0 MCH 29.1 MCHC 30.9 L RDW 16.5 Plt Count 187 D MPV 7.8 Neut % (Auto) 71.4 Lymph % (Auto) 17.6 [place] % (Auto) 6.9 Eos % (Auto) 3.6 Baso % (Auto) 0.5 Neut # (Auto) 5.2 Lymph # (Auto) 1.3 [place] # (Auto) 0.5 Eos # (Auto) 0.3 Baso # (Auto) 0.0 Sodium 135 L Potassium 4.0 Chloride 109 H Carbon Dioxide 23 Anion Gap 7.0 BUN 29 H Creatinine 1.00 Estimated Creat Clear 71 Estimated GFR 74 Est GFR ( Amer) 89 D Glucose 89 POC Glucose 106 80 Calcium 8.4 Troponin I 08/25/23 15:45 WBC RBC Hgb Hct MCV MCH MCHC RDW Plt Count MPV Neut % (Auto) Lymph % (Auto) [place] % (Auto) Eos % (Auto) Baso % (Auto) Neut # (Auto) Lymph # (Auto) [place] # (Auto) Eos # (Auto) Baso # (Auto) Sodium Potassium Chloride Carbon Dioxide Anion Gap BUN Creatinine Estimated Creat Clear Estimated GFR Est GFR ( Amer) Glucose POC Glucose Calcium Troponin I 0.02 DS: Diagnosis Discharge Diagnosis (1) Dyspnea on exertion: Status: Chronic Code(s): R06.09 - Other forms of dyspnea (2) HTN (hypertension): Status: Chronic Code(s): I10 - Essential (primary) hypertension Qualifiers: Hypertension type: essential hypertension Qualified Code(s): I10 - Essential (primary) hypertension (3) HLD (hyperlipidemia): Status: Chronic Code(s): E78.5 - Hyperlipidemia, unspecified Qualifiers: Hyperlipidemia type: mixed hyperlipidemia Qualified Code(s): E78.2 - Mixed hyperlipidemia (4) CAD (coronary artery disease): Status: Chronic Code(s): I25.10 - Atherosclerotic heart disease of [place] coronary artery without angina pectoris Qualifiers: Associated angina: with other forms of angina Coronary Disease-Associated Artery/Lesion type: [place] artery [place] vs. 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 Qualified Code(s): E11.9 - Type 2 diabetes mellitus without complications Meds Home Medications and Allergies Home Medications Medication Instructions Recorded Confirmed Type aspirin 81 mg tablet,delayed 81 mg PO DAILY heart health 04/18/20 09/03/23 History release (Adult Low Dose Aspirin) levothyroxine 25 mcg capsule 25 mcg PO DAILY thyroid 11/21/22 09/03/23 History metformin 1,000 mg tablet 1,000 mg PO BID 90 days #180 tabs 04/22/23 09/03/23 Rx tramadol 50 mg tablet 50 mg PO Q6H PRN pain #30 tabs 07/21/23 09/03/23 Rx atorvastatin 10 mg tablet 10 mg PO HS 08/25/23 09/03/23 History furosemide 20 mg tablet 20 mg PO DAILY 08/25/23 09/03/23 History hydroxychloroquine 200 mg tablet 200 mg PO BID 08/25/23 09/03/23 History prednisone 5 mg tablet 15 mg PO DAILY 08/25/23 09/03/23 History bisoprolol fumarate 5 mg tablet 2.5 mg (1/2 x 5 mg) PO DAILY 30 09/03/23 09/03/23 Rx days #15 tabs isosorbide mononitrate 30 mg 15 mg (1/2 x 30 mg) PO DAILY 30 09/03/23 09/03/23 Rx tablet,extended release 24 hr days #15 tabs New Prescriptions to Start Prescriptions: Allergies Allergy/AdvReac Type Severity Reaction Status Date / Time No Known Allergies Allergy Verified 09/03/23 14:21 Discharge Plan Disposition Patient Disposition: Home, Self-Care Condition: Good Follow up Plan Follow up with: Guera Bermeo APRN [Primary Care Provider] - Enter time for follow up (Please call and make a follow up appt. ) Miguel Hubbard MD [Staff Physician] - 1 week (The office will call you with a follow up appt. ) Prescriptions/Medication Reconciliation: Continued prednisone 5 mg tablet 15 mg PO DAILY Patient Comments: TAKE 3 TABLETS BY MOUTH ONCE DAILY hydroxychloroquine 200 mg tablet 200 mg PO BID Patient Comments: TAKE 1 TABLET BY MOUTH TWICE DAILY aspirin [Adult Low Dose Aspirin] 81 mg tablet,delayed release (DR/EC) 81 mg PO DAILY levothyroxine 25 mcg capsule 25 mcg PO DAILY metformin 1,000 mg tablet 1,000 mg PO BID 90 Days Qty: 180 1RF tramadol 50 mg tablet 50 mg PO Q6H PRN (Reason: pain) Qty: 30 0RF atorvastatin 10 mg tablet 10 mg PO HS furosemide 20 mg tablet 20 mg PO DAILY Discontinued bisoprolol fumarate 5 mg tablet 2.5 mg PO HS No Action bisoprolol fumarate 5 mg tablet 2.5 mg PO DAILY 30 Days Qty: 15 0RF isosorbide mononitrate 30 mg tablet extended release 24 hr 15 mg PO DAILY 30 Days Qty: 15 3RF Problem Reconciliation Problems Reviewed?: Yes Patient Discharge Instructions ACTIVITY: Ambulate as tolerated DIET: continue same diet Patient Instructions: DI for Angina, DI for Shortness of Breath Providers Primary Care Provider: Guera Bermeo Admit Provider: Javy Razo Attending Provider: Javy Razo
--- NOTE | 2023-08-26 16:16 | P.EN_ITS ---
patient had a fall per RN, I was asked to evaluate the patient, At time of my arrival patient appears alert awake sitting in chair comfortably holding conversations. According to the patient nuclear nitrated and failed. Otherwise he denies hitting his head back pain shortness of breath, chest pain. Chest x- ray skin on thoracic spine, lumbar spine, hips and bilateral femur was perfo rmed, negative for acute pathology. Patient was scheduled for discharge by cardiology. Patient will be discharged in stable condition, patient and agrees with the discharge plan
[2023-08-26 16:42] LABS: POC Glucose,Bedside 188 (70-110)
[2023-08-26] MEDS: METFORMIN 500MG TABLET 1000 MG PO (17:07)
--- NOTE | 2023-08-26 17:11 | PC.NURSE ---
pt orthostatic blood pressures were taken manually in the order of lying, sitting,standing.
--- NOTE | 2023-08-27 11:41 | SW/DCPLANNER ---
Follow up phone call: I spoke w/ patient's and she stated that patient is doing well at home. is aware of follow up appointments and Cardiology office will call patient/ with time. Patient/ did not have any further needs/questions at this time.
== END 2023-08-26 18:07 | disposition home or self-care (01) ==
LOC: ER 09:58 → 2ND 12:16
PROVIDERS: Nurse Practitioner; Admitting Provider Internal Medicine; Emergency Provider Emergency Medicine; PCP Nurse Practitioner Family; Visit Provider Internal Medicine
DX: I25.118 Atherosclerotic heart disease of native coronary artery with other forms of angina pectoris (principal); R06.09 Other forms of dyspnea; I10 Essential (primary) hypertension; E78.2 Mixed hyperlipidemia; E11.9 Type 2 diabetes mellitus without complications; R29.6 Repeated falls; R07.9 Chest pain, unspecified; G89.29 Other chronic pain; M19.90 Unspecified osteoarthritis, unspecified site
CPT/HCPCS: 36415; 71045; 71275; 72070; 72100; 72220; 73502; 73552; 80048; 80053; 81001; 82962; 83690; 83722; 83880; 84484; 85025; 87086; 93005; 93306; 99285; G0378; Q9967

== ENCOUNTER 2023-10-14 16:20 | Outpatient (CLI) | payer MEDICARE, SELFPAY ==
[2023-10-14 17:17] LABS: Basophils # 0.1 K/mm3 (0-0.2); Basophils % 0.7 % (0.1-2.0); Eosinophils # 0.3 K/mm3 (0.0-0.4); Eosinophils % 2.4 % (0.1-12.0); Hematocrit 39.1 % (42.0-52.0); Hemoglobin 12.5 g/dL (14.1-18.0); Lymphocytes # 1.3 K/mm3 (0.7-4.5); Lymphocytes % 11.7 % (10-50); Mean Corpuscular HGB Conc 31.9 g/dL (31.8-35.4); Mean Corpuscular Volume 93.9 fl (80-94); Monocytes # 0.8 K/mm3 (0.1-1.0); Monocytes % 7.2 % (1.7-9.3); Neutrophils # 8.7 K/mm3 (1.8-7.8); Neutrophils % 78.1 % (37.0-80.0); Platelet Count 260 K/mm3 (142-424); Red Blood Count 4.16 M/mm3 (4.60-6.20); Red Cell Distribution Width 16.5 % (11.5-17.5); White Blood Count 11.2 K/mm3 (4.8-10.8)
[2023-10-14 17:24] LABS: D-Dimer 0.57 ug/mL (0.0-0.5)
[2023-10-14 17:25] LABS: Alanine Aminotransferase 22 U/L (12-78); Albumin Level 3.5 g/dl (3.5-5.0); Alkaline Phosphatase 91 U/L (38-126); Anion Gap 18.1 mEq/L (5-15); Aspartate Amino Transferase 32 U/L (17-59); Bilirubin,Direct 0.1 mg/dl (0.0-0.4); Bilirubin,Indirect 0.3 mg/dL (0.0-0.9); Bilirubin,Total 0.4 mg/dl (0.2-1.3); Bilirubin,Unconjugated 0.3 mg/dL (0.0-1.1); Blood Urea Nitrogen 24 mg/dl (9-20); Calcium 9.6 mg/dl (8.4-10.2); Carbon Dioxide 23 mmol/L (22.0-30.0); Chloride 104 mmol/L (98-107); Estimated Glomerular Filt Rate 60 ml/min (>60); GFR (African American) 72 ML/MIN (>60); Glucose 92 mg/dl (74-100); Magnesium 1.4 mg/dl (1.6-2.3); Potassium 4.1 mmoL/L (3.5-5.1); Sodium 141 mmol/L (136-145); Total Protein,Serum 7.1 g/dl (6.3-8.2)
[2023-10-14 17:34] LABS: NT Pro Brain Natriuretic Pep. 765 pg/mL (0-125)
[2023-10-14 17:41] LABS: Free T4 (Free Thyroxine) 0.85 ng/dl (0.78-2.19)
[2023-10-14 17:56] LABS: Thyroid Stimulating Hormone 2.74 uIU/mL (0.465-4.68)
== END 2023-10-14 23:59 | disposition home or self-care (01) ==
LOC: LAB 16:21
PROVIDERS: PCP Nurse Practitioner Family; Visit Provider Internal Medicine
DX: R60.9 Edema, unspecified (principal); M79.601 Pain in right arm; M79.605 Pain in left leg; R06.02 Shortness of breath; R06.00 Dyspnea, unspecified; R53.1 Weakness; I65.23 Occlusion and stenosis of bilateral carotid arteries; I51.89 Other ill-defined heart diseases; E78.2 Mixed hyperlipidemia; I25.118 Atherosclerotic heart disease of native coronary artery with other forms of angina pectoris; E11.9 Type 2 diabetes mellitus without complications; Z79.84 Long term (current) use of oral hypoglycemic drugs
CPT/HCPCS: 36415; 80048; 80076; 83735; 83880; 84439; 84443; 85025; 85378

== ENCOUNTER 2023-10-15 10:28 | Outpatient (CLI) | payer MEDICARE, SELFPAY ==
--- NOTE | 2023-10-15 10:34 | CA_ITS ---
FINAL REPORT TECHNIQUE: Ultrasound images of the deep venous system were obtained from the left groin to the calf veins. CLINICAL HISTORY: left lower ext pain/swelling COMPARISON: None FINDINGS: The deep venous system is normally compressible. Normal flow is identified. IMPRESSION: No evidence of left lower extremity DVT. Reviewed, Interpreted and Dictated by Chris Nuñez MD Transcribed by Lisa Staton Authenticated and [facility]
--- NOTE | 2023-10-15 10:34 | CA_ITS ---
FINAL REPORT TECHNIQUE: Graded compression, spectral analysis and ultrasound images of the venous system of the right upper extremity were obtained. CLINICAL HISTORY: right upper ext pain /swelling. COMPARISON: None FINDINGS: The jugular vein, subclavian vein, axillary vein, brachial vein, cephalic vein and basilic venous system are fully compressible and demonstrate no evidence of thrombosis. IMPRESSION: No evidence of thrombosis of the venous system of the right upper extremity. Reviewed, Interpreted and Dictated by Chris Nuñez MD Transcribed by Lisa Staton Authenticated and [facility]
--- NOTE | 2023-10-15 10:42 | CA_ITS ---
FINAL REPORT TECHNIQUE: Arterial duplex Doppler evaluation of the left lower extremity with spectral analysis. 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 No levels of stenosis or occlusion are identified. Reviewed, Interpreted and Dictated by Chris Nuñez MD Transcribed by Lisa Staton Authenticated and [facility]
--- NOTE | 2023-10-15 10:43 | CA_ITS ---
FINAL REPORT CLINICAL HISTORY: CAD, Right arm swelling + d-dimer COMPARISON: None FINDINGS: Axial and color Doppler waveform evaluation of the left and right upper extremity was performed. Spectral analysis was performed. Right upper extremity Velocities cm/sec: SCA: 58 AxA Mid: 88 BrA Prx: 111 BrA Med: 67 BrA Dist: 86 Rad: 51 Ul: 52 Waveforms are triphasic. IMPRESSION: No evidence of occlusive arterial disease. Reviewed, Interpreted and Dictated by Chris Nuñez MD Transcribed by Lisa Staton Authenticated and [facility]
--- NOTE | 2023-10-15 11:31 | CT_ITS ---
FINAL REPORT TECHNIQUE: The patient was injected with IV contrast. Axial images were obtained through the chest in a PE protocol. 3-D reconstruction images were also performed. Individualized dose reduction techniques using automated exposure control or adjustment of the MA and/or KV according to patient's size were employed. CLINICAL HISTORY: d dimer elevated COMPARISON: 08/26/2023 and 08/15/2023 FINDINGS: Mediastinal vasculature is adequately opacified. No pulmonary artery filling defects are identified to suggest PE. There is no aortic dissection. There is a 1.8 cm precarinal lymph node. A right infrahilar lymph node measures 2.2 cm. There are other smaller right paratracheal and subcarinal lymph nodes. The mediastinal adenopathy is more evident than on the prior exam. The heart size is normal. There is no pericardial or pleural effusion. No suspicious infiltrate or nodule is identified. There are mild ground-glass opacities in both lungs. Limited images of the upper abdomen demonstrate no acute findings. The gallbladder is present. IMPRESSION: No pulmonary embolus or dissection. Moderate mediastinal adenopathy, appears worse compared to the prior studies from July 2023 and August 2023. This is indeterminate, and reactive or neoplastic etiologies could be considered. Reviewed, Interpreted and Dictated by Chris Nuñez MD Transcribed by Lisa Staton Authenticated and [facility]
--- NOTE | 2023-10-15 11:44 | CA_ITS ---
APPROVED REPORT EXAM: Comprehensive 2D, Doppler, and color-flow Echocardiogram Digital X Ray Service Engineer: Yesenia Mandel RVT Ht: 5 ft 11 in Wt: 158lbs BSA: 1.91 BP: 114/74 mmHg Indications: SOA,MILD ,DM,EDEMA,CAD,HX CVA,RA 2D Dimensions LA Volume 33.20 mL LA Volume Index 17.38 mL/m2 (M/F) 16-34 M-Mode Dimensions RVDd 2.81 cm (0.9-2.6) LA Diam 3.53 cm (1.9-4.0) LVDd 4.68 cm (3.5-5.7) LVDs 3.00 cm (3.5-5.7) IVSd 1.03 cm (0.6-1.1) PWd 0.42 cm (0.6-1.1) EF (Teich) 65.40% FS 35.90% EDV (Teich) 101.30 mL TAPSE 2.36 (<1.7) ESV (Teich) 35.00 mL LV Diastology E Decel Time 300 (160-240 msec) E/A Ratio 0.7 Aortic Valve ELFEGO Index 0.82 cm2/m2 AoV Peak Joseph. 204.0 (50-130 cm/s) AO Peak GR. 16.70 mmHg AO Mean GR. 9.00 (<5 mmHg) AO VTI 41.2 (18-25 cm) ELFEGO (VTI) 1.60 (2.5-4.5 cm2) Mitral Valve MV E Max Joseph. 50.0 (40-130 cm/s) MV A Velocity 68.0 (40-130 cm/s) E/A Ratio 0.73 MV PHT 88.0 ms Pulmonary Valve PV Peak Velocity 67.0 (50-150 cm/s) Tricuspid Valve TR P. Velocity 314.00 cm/s RAP Estimate 10.00 mmHg RVSP 49.30 mmHg Left Ventricle The left ventricle is normal size. The left ventricular systolic function is normal. The left ventricular ejection fraction is within the normal range. There is increased LV wall thickness. There is normal LV segmental wall motion. Transmitral Doppler flow pattern suggests impaired LV relaxation. LVEF is 55%. Right Ventricle Right ventricle is mildly dilated. The right ventricular systolic function is normal. Atria The left atrium size is normal. The right atrium size is normal. There is no Doppler evidence of interatrial shunt. Aortic Valve The aortic valve is moderately thickened, cannot rule out bicuspid aortic valve. Mild aortic stenosis. ELFEGO by continuity equation 1.9 cm2. Peak velocity 2.0 m/s. Mean AV gradient is 9 mmHg. Max AV gradient is 16 mmHg. Trace aortic regurgitation. Mitral Valve The mitral valve is mildly thickened. No evidence of mitral valve stenosis. Mild mitral regurgitation. Tricuspid Valve The tricuspid valve leaflets are thin and pliable. Mild tricuspid regurgitation. RVSP is 35-40 mmHg. Pulmonic Valve The pulmonary valve is normal in structure. Trace pulmonic regurgitation. Great Vessels The aortic root is normal in size. The ascending aorta is not well visualized. IVC is normal in size and collapses >50% with inspiration. Pericardium There is no pericardial effusion. Other Information Study Quality: Fair Conclusion Normal biventricular systolic function. Mild RV dilation. The aortic valve is moderately thickened, cannot rule out bicuspid aortic valve. Mild (ELFEGO by continuity equation 1.9 cm2. Peak velocity 2.0 m/s. Mean AV gradient is 9 mmHg. Max AV gradient is 16 mmHg). Mild MR, mild TR. RVSP is 35-40 mmHg. Electronically signed by : Clara Rebolledo MD 10/15/2023 22:00:54
[2023-10-15] MEDS: IOPAMIDOL-370 (76%);100ML BOTTLE 70 ML IV (11:57)
[2023-10-15] MEDS: 0.9 % SODIUM CHLORIDE 50 ML VIAL IV (11:57)
[2023-10-15] MEDS: SODIUM CHLORIDE 0.9% 10ML SYR (RAD ONLY) 10 ML IV (11:57)
== END 2023-10-15 23:59 | disposition home or self-care (01) ==
LOC: RT 10:29
PROVIDERS: PCP Nurse Practitioner Family; Visit Provider Internal Medicine
DX: M79.601 Pain in right arm (principal); M79.605 Pain in left leg; R06.02 Shortness of breath; R60.9 Edema, unspecified; R53.1 Weakness; I65.23 Occlusion and stenosis of bilateral carotid arteries; I51.89 Other ill-defined heart diseases; E78.2 Mixed hyperlipidemia; I25.118 Atherosclerotic heart disease of native coronary artery with other forms of angina pectoris; E11.9 Type 2 diabetes mellitus without complications; R09.89 Other specified symptoms and signs involving the circulatory and respiratory systems; R79.89 Other specified abnormal findings of blood chemistry; M79.604 Pain in right leg; Z79.84 Long term (current) use of oral hypoglycemic drugs
CPT/HCPCS: 71275; 93306; 93926; 93931; 93971; Q9967

== ENCOUNTER 2023-11-03 15:23 | Outpatient (CLI) | payer MEDICARE, SELFPAY ==
[2023-11-03 18:28] LABS: Chloride 105 mmol/L (98-107); Potassium 4.6 mmoL/L (3.5-5.1); Sodium 142 mmol/L (136-145)
[2023-11-03 18:31] LABS: Anion Gap 16.6 mEq/L (5-15); Calcium 9.5 mg/dl (8.4-10.2); Carbon Dioxide 25 mmol/L (22.0-30.0); Glucose 99 mg/dl (74-100)
[2023-11-03 18:54] LABS: Blood Urea Nitrogen 33 mg/dl (9-20); Estimated Glomerular Filt Rate 54 ml/min (>60); GFR (African American) 66 ML/MIN (>60)
== END 2023-11-03 23:59 | disposition home or self-care (01) ==
LOC: LAB 15:24
PROVIDERS: PCP Nurse Practitioner Family; Visit Provider Internal Medicine
DX: R06.02 Shortness of breath (principal); R53.1 Weakness; I65.23 Occlusion and stenosis of bilateral carotid arteries; I51.89 Other ill-defined heart diseases; E78.2 Mixed hyperlipidemia; I25.118 Atherosclerotic heart disease of native coronary artery with other forms of angina pectoris; E11.9 Type 2 diabetes mellitus without complications; R93.89 Abnormal findings on diagnostic imaging of other specified body structures
CPT/HCPCS: 36415; 80048

== ENCOUNTER 2023-11-12 14:02 | Outpatient (CLI) | payer MEDICARE, SELFPAY ==
[2023-11-12 15:18] LABS: Erythrocyte Sedimentation Rate 64 mm/hr (0-20)
[2023-11-12 15:21] LABS: Uric Acid 6.1 mg/dl (3.5-8.5)
[2023-11-14 08:22] LABS: RA Latex Turbid. 18.2 IU/mL (<14.0)
[2023-11-14 14:47] LABS: Anti-Centromere B Antibodies <0.2 AI (0.0-0.9); Anti-DNA (DS) Ab Qn 7 IU/mL (0-9); Anti-Jo-1 <0.2 AI (0.0-0.9); Antichromatin Antibodies <0.2 AI (0.0-0.9); Antiscleroderma-70 Antibodies 4.7 AI (0.0-0.9); RNP Antibodies <0.2 AI (0.0-0.9); Sjogren's Anti-SS-A <0.2 AI (0.0-0.9); Sjogren's Anti-SS-B 0.6 AI (0.0-0.9)
[2023-11-16 18:09] LABS: Homogeneous Pattern >1:1280 (.)
[2023-12-06 10:24] LABS: Anti-Centromere B Abs Charge YES; Anti-DNA (DS) Ab Charge YES; Anti-Jo-1 Charge YES; Antichromatin Abs Charge YES; Antinuclear Antibodies (ANA) POSITIVE; Antinuclear Antibodies, IFA POSITIVE; Antiscleroderma-70 Abs Charge YES; RNP Antibodies Charge YES; Sjogren's Anti-SS-A Ab Charge YES; Sjogren's Anti-SS-B Ab Charge YES; Smith Antibodies Charge YES
== END 2023-11-12 23:59 | disposition home or self-care (01) ==
LOC: LAB 14:05
PROVIDERS: PCP Nurse Practitioner Family; Visit Provider Internal Medicine Pulmonary Disease
DX: J84.9 Interstitial pulmonary disease, unspecified (principal); R06.09 Other forms of dyspnea
CPT/HCPCS: 36415; 84550; 85651; 86038; 86140; 86225; 86235; 86431

== ENCOUNTER 2024-01-21 14:58 | Outpatient (CLI) | payer MEDICARE, SELFPAY ==
[2024-01-21 15:28] LABS: Basophils % 0.4 % (0.1-2.0); Eosinophils # 0.1 K/mm3 (0.0-0.4); Eosinophils % 0.7 % (0.1-12.0); Hematocrit 39.6 % (42.0-52.0); Hemoglobin 12.1 g/dL (14.1-18.0); Lymphocytes % 9.1 % (10-50); Mean Corpuscular HGB Conc 30.6 g/dL (31.8-35.4); Mean Corpuscular Hemoglobin 29.7 pg (27.0-31.2); Mean Corpuscular Volume 96.8 fl (80-94); Monocytes # 0.6 K/mm3 (0.1-1.0); Monocytes % 5.3 % (1.7-9.3); Neutrophils # 9.2 K/mm3 (1.8-7.8); Neutrophils % 84.5 % (37.0-80.0); Platelet Count 278 K/mm3 (142-424); Red Blood Count 4.09 M/mm3 (4.60-6.20); Red Cell Distribution Width 14.9 % (11.5-17.5); White Blood Count 10.9 K/mm3 (4.8-10.8)
[2024-01-21 15:59] LABS: Albumin Level 3.6 g/dl (3.5-5.0)
[2024-01-21 16:00] LABS: Chloride 106 mmol/L (98-107); Potassium 4.8 mmoL/L (3.5-5.1); Sodium 138 mmol/L (136-145)
[2024-01-21 16:02] LABS: Alanine Aminotransferase 29 U/L (12-78); Anion Gap 12.8 mEq/L (5-15); Aspartate Amino Transferase 36 U/L (17-59); Bilirubin,Unconjugated 0.1 mg/dL (0.0-1.1); Blood Urea Nitrogen 29 mg/dl (9-20); Carbon Dioxide 24 mmol/L (22.0-30.0); Estimated Glomerular Filt Rate 50 ml/min (>60); GFR (African American) 60 ML/MIN (>60); Total Protein,Serum 7.2 g/dl (6.3-8.2)
[2024-01-21 16:03] LABS: Alkaline Phosphatase 114 U/L (38-126); Bilirubin,Direct 0.4 mg/dl (0.0-0.4); Bilirubin,Indirect 0.1 mg/dL (0.0-0.9); Bilirubin,Total 0.5 mg/dl (0.2-1.3); Chol/HDL Ratio 4.4 (1-3.5); Cholesterol 137 mg/dl (140-200); Glucose 96 mg/dl (74-100); HDL Cholesterol 31 mg/dl (40-60); Magnesium 1.6 mg/dl (1.6-2.3); Triglycerides 163 mg/dl (30-150); VLDL Cholesterol 33 mg/dL (0-40)
[2024-01-21 16:19] LABS: Free T4 (Free Thyroxine) 0.95 ng/dl (0.78-2.19)
[2024-01-21 16:34] LABS: Thyroid Stimulating Hormone 2.51 uIU/mL (0.465-4.68)
== END 2024-01-21 23:59 | disposition home or self-care (01) ==
LOC: LAB 14:59
PROVIDERS: PCP Nurse Practitioner Family; Visit Provider Internal Medicine
DX: E78.2 Mixed hyperlipidemia (principal); I25.118 Atherosclerotic heart disease of native coronary artery with other forms of angina pectoris; I51.89 Other ill-defined heart diseases; I65.23 Occlusion and stenosis of bilateral carotid arteries; R06.00 Dyspnea, unspecified
CPT/HCPCS: 36415; 80048; 80061; 80076; 83735; 84439; 84443; 85025

== ENCOUNTER 2024-01-28 08:08 | Day surgery (SDC) | payer MEDICARE, SELFPAY ==
--- NOTE | 2024-01-28 07:14 | IR_ITS ---
APPROVED REPORT Patient Location: Outpatient Winery Worker: MARCIA Banks RT (R) PROCEDURES Right heart catheterization INDICATION Pulmonary hypertension Informed consent was obtained prior to the procedure. COMPLICATIONS NONE Estimated Blood Loss: LESS THAN 10 ML TECHNIQUE One percent lidocaine was used to anesthetize the right anterior aspect of the neck. A cold food packer needle was used to identify the right internal jugular vein. Following this a larger cannulation needle was used to cannulate the right internal jugular vein and a wire was passed into the vein. Prior to the 7 [place] sheath being inserted the wire was confirmed under fluoroscopic guidance to be in the inferior vena cava. A 7 [place] sheath was introduced and a [place]acey catheter was floated using hemodynamic waveforms in the pulmonary artery, right ventricle , and right atrium. Saturations were obtained in the pulmonary artery and the right atrium. At the end of the procedure the patient was transferred to the postop holding area in stable condition for sheath removal. ANGIOGRAPHIC RESULTS Right atrial pressure 3 mmHg Pulmonary artery pressure 40/12 mmHg Pulmonary artery occlusion pressure 8 mmHg Right atrial saturation 79% Pulmonary artery saturation 76% Aortic saturation 100% Hemoglobin 11.6 Cardiac output 6.2 L/min IMPRESSION Mild to moderate pulmonary hypertension with normal left-sided filling pressures PLAN 1. Treatment per primary cardiology team Electronically signed by : Miguel Hubbard MD 01/28/2024 12:12:44
[2024-01-28 08:13] VITALS: BMI 20.9
[2024-01-28 08:28] VITALS: BP 125/67; PULSE 78; RESP 18; TEMP 36.9; O2SAT 94
[2024-01-28 08:37] VITALS: PULSE 73
[2024-01-28 08:45] LABS: Basophils % 0.4 % (0.1-2.0); Eosinophils # 0.2 K/mm3 (0.0-0.4); Eosinophils % 2.2 % (0.1-12.0); Hematocrit 37.6 % (42.0-52.0); Hemoglobin 11.6 g/dL (14.1-18.0); Lymphocytes # 1.1 K/mm3 (0.7-4.5); Lymphocytes % 10.1 % (10-50); Mean Corpuscular Hemoglobin 29.7 pg (27.0-31.2); Mean Corpuscular Volume 95.8 fl (80-94); Monocytes # 0.7 K/mm3 (0.1-1.0); Monocytes % 6.2 % (1.7-9.3); Neutrophils # 8.6 K/mm3 (1.8-7.8); Neutrophils % 81.2 % (37.0-80.0); Platelet Count 281 K/mm3 (142-424); Red Blood Count 3.92 M/mm3 (4.60-6.20); White Blood Count 10.6 K/mm3 (4.8-10.8)
[2024-01-28 08:51] LABS: Anion Gap 9.9 mEq/L (5-15); Blood Urea Nitrogen 22 mg/dl (9-20); Calcium 9.1 mg/dl (8.4-10.2); Carbon Dioxide 26 mmol/L (22.0-30.0); Chloride 108 mmol/L (98-107); Creatinine Clearance Estimated 54 mL/min (50-200); Estimated Glomerular Filt Rate 60 ml/min (>60); GFR (African American) 72 ML/MIN (>60); Glucose 103 mg/dl (74-100); Potassium 4.9 mmoL/L (3.5-5.1); Sodium 139 mmol/L (136-145)
[2024-01-28] MEDS: LIDOCAINE 1% 10ML MDV 20 ML IJ (10:14)
[2024-01-28] MEDS: diphenhydrAMINE 50MG/ML VIAL 50 MG IV (10:14)
[2024-01-28] MEDS: 0.9 % SODIUM CHLORIDE 500 ML 25 ML IV (10:14)
[2024-01-28] MEDS: HEPARIN 1,000 UNITS/500ML NS (CATH LAB) 3000 UNIT IV (10:25)
[2024-01-28 10:42] VITALS: BP 109/66; PULSE 74; PULSE 76; RESP 19; O2SAT 98
[2024-01-28 10:50] VITALS: BP 117/69; PULSE 73; RESP 18; O2SAT 94
[2024-01-28 10:55] VITALS: BP 113/71; PULSE 71; RESP 18; O2SAT 92
[2024-01-28 11:00] VITALS: BP 121/71; PULSE 69; RESP 18
[2024-01-28 15:29] LABS: CATHL Arterial O2 SAT 76 % (90-100); CATHL Venous O2 SAT 79 % (75-80)
== END 2024-01-28 11:24 | disposition home or self-care (01) ==
PROVIDERS: PCP Nurse Practitioner Family; Visit Provider Internal Medicine
DX: I25.118 Atherosclerotic heart disease of native coronary artery with other forms of angina pectoris (principal); E78.2 Mixed hyperlipidemia; I65.23 Occlusion and stenosis of bilateral carotid arteries; R06.00 Dyspnea, unspecified; E11.9 Type 2 diabetes mellitus without complications; I27.20 Pulmonary hypertension, unspecified; Z79.899 Other long term (current) drug therapy; I27.21 Secondary pulmonary arterial hypertension
CPT/HCPCS: 80048; 82810; 85025; 93451; 99152; C1894; J1200; J1644

== ENCOUNTER 2024-01-30 08:14 | Outpatient (CLI) | payer MEDICARE, SELFPAY ==
--- NOTE | 2024-01-30 08:14 | FL_ITS ---
FINAL REPORT CLINICAL HISTORY: soa, ft 0:52 dap 1027.28 FINDINGS: SNIFF TEST HISTORY: Shortness of breath. PROCEDURE: Fluoroscopy was utilized to observe the motion of the hemidiaphragms during normal respirations and while the patient was sniffing. FINDINGS: There is normal motion of both hemidiaphragms. There is no paradoxical movement of either side of the diaphragm. A total of 64 images were saved. FLUOROSCOPY TIME: 0.52 minutes FLUORO DOSE: 1027.28 DAP in uGym2 IMPRESSION: No paradoxical movement of the diaphragm. Reviewed, Interpreted and Dictated by Nate Acuna III, MD Transcribed by Felicia Castañeda PA-C Authenticated and [facility]
--- NOTE | 2024-01-30 08:20 | CT_ITS ---
FINAL REPORT TECHNIQUE: Axial CT images were performed from the lung apices through the upper abdomen. Coronal and sagittal reformats were submitted. This study was performed with techniques to keep radiation doses as low as reasonably achievable (ALARA). Individualized dose reduction techniques using automated exposure control or adjustment of mA and/or kV according to the patient's size were employed. CLINICAL HISTORY: .soa, diaphragm dysfunction, lung disease COMPARISON: CTA 10/15/2023 FINDINGS: CT CHEST (HIGH RESOLUTION): CT views of the chest were performed without intravenous contrast using supine inspiratory and expiratory images, as well as high-resolution prone inspiratory images. There is no axillary adenopathy. There are multiple mildly enlarged mediastinal lymph nodes present, nonspecific, and stable since the prior CT of October 14. Heart size is normal. There is no pericardial or pleural effusion. There are mild changes of peripheral interstitial fibrosis, greatest at the lung bases. There is no evidence of emphysema, bronchiectasis, air trapping, pneumothorax, or chest wall abnormality. IMPRESSION: Mild changes of peripheral interstitial fibrosis, greatest at the lung bases. Multiple mildly enlarged mediastinal lymph nodes, nonspecific and stable since the prior CT of October 14. Reviewed, Interpreted and Dictated by Nate Acuna III, MD Transcribed by Sydni Hung Authenticated and [facility]
--- NOTE | 2024-01-30 09:31 | PC.NURSE ---
Pt unable to follow commands for PFT. 6MWT completed. Dr Saldivar's office made aware.
== END 2024-01-30 23:59 | disposition home or self-care (01) ==
LOC: RAD 08:14
PROVIDERS: PCP Nurse Practitioner Family; Visit Provider Internal Medicine Pulmonary Disease
DX: J98.6 Disorders of diaphragm (principal); J84.9 Interstitial pulmonary disease, unspecified
CPT/HCPCS: 71250; 76000; 94618

== ENCOUNTER 2024-02-03 14:31 | Outpatient (CLI) | payer MEDICARE, SELFPAY ==
[2024-02-03 15:24] LABS: Basophils % 0.3 % (0.1-2.0); Eosinophils # 0.1 K/mm3 (0.0-0.4); Eosinophils % 1.4 % (0.1-12.0); Lymphocytes # 0.9 K/mm3 (0.7-4.5); Lymphocytes % 10.3 % (10-50); Mean Corpuscular HGB Conc 30.6 g/dL (31.8-35.4); Mean Corpuscular Hemoglobin 29.6 pg (27.0-31.2); Mean Corpuscular Volume 96.8 fl (80-94); Monocytes # 0.5 K/mm3 (0.1-1.0); Monocytes % 6.3 % (1.7-9.3); Neutrophils # 6.8 K/mm3 (1.8-7.8); Neutrophils % 81.8 % (37.0-80.0); Platelet Count 284 K/mm3 (142-424); Red Blood Count 3.72 M/mm3 (4.60-6.20); Red Cell Distribution Width 15.1 % (11.5-17.5); White Blood Count 8.3 K/mm3 (4.8-10.8)
[2024-02-03 15:49] LABS: Alanine Aminotransferase 23 U/L (12-78); Albumin Level 3.1 g/dl (3.5-5.0); Albumin/Globulin Ratio 0.9 (1.1-1.8); Alkaline Phosphatase 94 U/L (38-126); Anion Gap 7.9 mEq/L (5-15); Aspartate Amino Transferase 34 U/L (17-59); Bilirubin,Total 0.4 mg/dl (0.2-1.3); Blood Urea Nitrogen 24 mg/dl (9-20); Calcium 8.8 mg/dl (8.4-10.2); Carbon Dioxide 27 mmol/L (22.0-30.0); Chloride 107 mmol/L (98-107); Estimated Glomerular Filt Rate 60 ml/min (>60); GFR (African American) 72 ML/MIN (>60); Globulin 3.5 g/dL (1.3-3.2); Glucose 103 mg/dl (74-100); Potassium 4.9 mmoL/L (3.5-5.1); Sodium 137 mmol/L (136-145); Total Protein,Serum 6.6 g/dl (6.3-8.2)
[2024-02-03 15:55] LABS: C-Reactive Protein 14.4 mg/L (0-4)
[2024-02-05 11:18] LABS: HCV Ab Non Reactive (Non Reactive)
[2024-02-05 21:29] LABS: QuantiFERON-TB Gold Plus Negative (Negative)
== END 2024-02-03 23:59 | disposition home or self-care (01) ==
PROVIDERS: PCP Nurse Practitioner Family; Visit Provider Internal Medicine Pulmonary Disease
DX: J45.909 Unspecified asthma, uncomplicated (principal); D84.9 Immunodeficiency, unspecified; J84.9 Interstitial pulmonary disease, unspecified; R06.09 Other forms of dyspnea
CPT/HCPCS: 80053; 85025; 86140; 86480; 86803

== ENCOUNTER 2024-03-22 15:57 | Outpatient (CLI) | payer MEDICARE, SELFPAY ==
[2024-03-22 16:17] LABS: Basophils # 0.1 K/mm3 (0-0.2); Basophils % 0.6 % (0.1-2.0); Eosinophils # 0.1 K/mm3 (0.0-0.4); Eosinophils % 1.3 % (0.1-12.0); Hematocrit 37.2 % (42.0-52.0); Hemoglobin 12.3 g/dL (14.1-18.0); Lymphocytes # 1.1 K/mm3 (0.7-4.5); Lymphocytes % 14.1 % (10-50); Mean Corpuscular HGB Conc 33.1 g/dL (31.8-35.4); Mean Corpuscular Hemoglobin 30.1 pg (27.0-31.2); Mean Corpuscular Volume 90.9 fl (80-94); Mean Platelet Volume 7.9 fl (7.4-10.4); Monocytes # 0.5 K/mm3 (0.1-1.0); Monocytes % 6.6 % (1.7-9.3); Neutrophils # 5.9 K/mm3 (1.8-7.8); Neutrophils % 77.4 % (37.0-80.0); Platelet Count 191 K/mm3 (142-424); Red Blood Count 4.09 M/mm3 (4.60-6.20); Red Cell Distribution Width 15.7 % (11.5-17.5); White Blood Count 7.6 K/mm3 (4.8-10.8)
[2024-03-22 16:50] LABS: Alanine Aminotransferase 24 U/L (12-78); Albumin Level 3.5 g/dl (3.5-5.0); Albumin/Globulin Ratio 1.2 (1.1-1.8); Alkaline Phosphatase 80 U/L (38-126); Anion Gap 18.6 mEq/L (5-15); Aspartate Amino Transferase 29 U/L (17-59); Bilirubin,Total 0.5 mg/dl (0.2-1.3); Blood Urea Nitrogen 32 mg/dl (9-20); Calcium 8.9 mg/dl (8.4-10.2); Carbon Dioxide 25 mmol/L (22.0-30.0); Chloride 103 mmol/L (98-107); Estimated Glomerular Filt Rate 54 ml/min (>60); GFR (African American) 66 ML/MIN (>60); Glucose 90 mg/dl (74-100); Potassium 4.6 mmoL/L (3.5-5.1); Sodium 142 mmol/L (136-145); Total Protein,Serum 6.5 g/dl (6.3-8.2)
[2024-03-22 16:55] LABS: C-Reactive Protein 7.1 mg/L (0-4)
== END 2024-03-22 23:59 | disposition home or self-care (01) ==
LOC: LAB 15:58
PROVIDERS: PCP Nurse Practitioner Family; Visit Provider Internal Medicine Pulmonary Disease
DX: R06.09 Other forms of dyspnea (principal); J84.9 Interstitial pulmonary disease, unspecified; J45.909 Unspecified asthma, uncomplicated
CPT/HCPCS: 36415; 80053; 85025; 86140

== ENCOUNTER 2024-06-22 13:38 | Outpatient (CLI) | payer MEDICARE, SELFPAY ==
--- NOTE | 2024-06-22 13:46 | CT_ITS ---
FINAL REPORT TECHNIQUE: Axial images were obtained through the chest without contrast. Supine inspiration and expiration and prone inspiration hi-resolution images were obtained and reviewed. This study was performed with techniques to keep radiation doses as low as reasonably achievable, (ALARA). Individualized dose reduction techniques using automated exposure control or adjustment of mA and/or kV according to the patient's size were employed. CLINICAL HISTORY: Shortness of breath COMPARISON: 01/30/2024 FINDINGS: There are a few small scattered mediastinal lymph nodes, similar to prior exam. Mild coronary artery calcifications are noted. On the expiratory images, there is no evidence of air trapping. On the prone inspiratory images, the interstitial opacity is persistent at the bases consistent with fibrosis. There is moderate traction bronchiectasis at the bases. The heart size is normal. There is no pericardial or pleural effusion. Limited images of the upper abdomen are unremarkable. No suspicious infiltrate or nodule identified. IMPRESSION: Small scattered mediastinal nodes, similar to prior exam. Persistent interstitial opacity bilateral lung bases with traction bronchiectasis. Mild coronary artery calcifications. Reviewed, Interpreted and Dictated by Chris Nuñez MD Transcribed by Janey Paez Authenticated and [facility]
--- NOTE | 2024-06-22 14:50 | PC.NURSE ---
Pt unable to do PFT test, attempted multiple times.
== END 2024-06-22 23:59 | disposition home or self-care (01) ==
LOC: RAD 13:39
PROVIDERS: PCP Nurse Practitioner Family; Visit Provider Internal Medicine Pulmonary Disease
DX: J84.9 Interstitial pulmonary disease, unspecified (principal); R06.09 Other forms of dyspnea
CPT/HCPCS: 71250; 94618

== ENCOUNTER 2024-08-12 11:50 | Outpatient (CLI) | payer MEDICARE, SELFPAY ==
[2024-08-12 12:10] LABS: Basophils % 0.4 % (0.1-2.0); Eosinophils # 0.1 K/mm3 (0.0-0.4); Eosinophils % 1.5 % (0.1-12.0); Hematocrit 40.3 % (42.0-52.0); Hemoglobin 12.7 g/dL (14.1-18.0); Lymphocytes % 12.8 % (10-50); Mean Corpuscular HGB Conc 31.5 g/dL (31.8-35.4); Mean Corpuscular Hemoglobin 29.5 pg (27.0-31.2); Mean Corpuscular Volume 93.7 fl (80-94); Mean Platelet Volume 9.9 fl (7.4-10.4); Monocytes # 0.6 K/mm3 (0.1-1.0); Monocytes % 7.4 % (1.7-9.3); Neutrophils # 6.3 K/mm3 (1.8-7.8); Neutrophils % 77.4 % (37.0-80.0); Platelet Count 200 K/mm3 (142-424); Red Cell Distribution Width 13.5 % (11.5-17.5); White Blood Count 8.1 K/mm3 (4.8-10.8)
[2024-08-12 12:37] LABS: Alanine Aminotransferase 21 U/L (12-78); Albumin Level 4.1 g/dl (3.5-5.0); Albumin/Globulin Ratio 1.5 (1.1-1.8); Alkaline Phosphatase 68 U/L (38-126); Anion Gap 9.6 mEq/L (5-15); Aspartate Amino Transferase 26 U/L (17-59); Bilirubin,Total 0.4 mg/dl (0.2-1.3); Blood Urea Nitrogen 30 mg/dl (9-20); Calcium 9.3 mg/dl (8.4-10.2); Carbon Dioxide 25 mmol/L (22.0-30.0); Chloride 107 mmol/L (98-107); Estimated Glomerular Filt Rate 50 ml/min (>60); GFR (African American) 60 ML/MIN (>60); Globulin 2.8 g/dL (1.3-3.2); Glucose 104 mg/dl (74-100); Potassium 4.6 mmoL/L (3.5-5.1); Sodium 137 mmol/L (136-145); Total Protein,Serum 6.9 g/dl (6.3-8.2)
== END 2024-08-12 23:59 | disposition home or self-care (01) ==
LOC: LAB 11:52
PROVIDERS: PCP Nurse Practitioner Family; Visit Provider Internal Medicine Pulmonary Disease
DX: J84.9 Interstitial pulmonary disease, unspecified (principal); J45.909 Unspecified asthma, uncomplicated; R06.09 Other forms of dyspnea
CPT/HCPCS: 36415; 80053; 85025; 86140

== ENCOUNTER 2024-11-10 07:43 | Outpatient (CLI) | payer MEDICARE, SELFPAY ==
--- OUTSIDE RECORDS SUMMARY | 2024-11-10 07:45 | XMS_ITS | Clinical Summary ---
Author Organization [facility] Address [address] [id number] Care Team Providers Care Detasseler Name Role Phone Unavailable Primary Care Provider Unavailabl e Family History Medical History Relation Name Comments Stroke Father Relation Name Status Comments Father Social History Tobacco Use Types Packs/Day Years Used Date Smoking Tobacco: Never Sex and Gender Information Value Date Recorded Sex Assigned at Not on file Legal Sex Male 7:17 PM EDT Gender Identity Not on file Sexual Orientation Not on file Last Filed Vital Signs Vital Sign Reading Time Taken Comments Blood Pressure 125/82 01/18/2019 12:07 PM EDT Pulse 65 01/18/2019 12:07 PM EDT Temperature - - Respiratory Rate 16 01/18/2019 12:07 PM EDT Oxygen Saturation - - Inhaled Oxygen Concentration - - Weight 92.6 kg (204 lb 2 oz) 01/18/2019 12:07 PM EDT Height 177.8 cm (5' 10 ) 01/18/2019 12:07 PM EDT Body Mass Index 29.29 01/18/2019 12:07 PM EDT Plan of Treatment Health Maintenance Due Date Last Done Comments [facility]-Depression Screening 1950 [facility]-Infant/Child/Adol SDOH Screenings 1950 [facility]- SDOH Screenings 01/26/1970 [facility]-Adult SDOH Screenings 01/26/1970 [facility]-DTaP,Tdap,and Td Vaccine s (1 - Tdap) 01/26/1971 CT Colonography 01/26/1997 Colonoscopy 01/26/1997 FIT-DNA 01/26/1997 FIT 01/26/1997 FOBT 01/26/1997 Sigmoidoscopy 01/26/1997 [facility]-Colorectal Cancer Screening 01/26/1997 [facility]-Pneumococcal Vaccine: 50 + Years (1 of 1 - PCV) 01/26/2002 [facility]-Zoster Vaccines (1 of 2) 01/26/2002 [id number] Vaccine (3 - 2023- season) 2024 04/12/2021, 08/02/2020 [facility]-Influenza Vaccine (Seaso n Ended) 2025 [facility]-RSV Vaccine: 60+ Years o r (1 - 1-dose 75+ series) 01/26/2027 HPV Vaccines Aged Out No longer eligi ble based on patient's age to complete this topic [facility]-HIB Vaccines Aged Out No longer e ligible based on patient's age to complete this topic [facility]-Hepatitis A Vaccines Aged Out No longer eligible based on patient's age to complete this topic [facility]-IPV Vaccines Aged Out No longer e ligible based on patient's age to complete this topic [facility]-Rotavirus Vaccines Aged Out No lo nger eligible based on patient's age to complete this topic Insurance MEDICARE
--- OUTSIDE RECORDS SUMMARY | 2024-11-10 07:46 | XMS_ITS | Data Portability ---
Author Organization [place] - [facility] Address [address] [place] [address] Care Team Providers Care Bi Technical Lead Name Role Phone JANET GARDNER Referring Provider [phone] Assessment No assessment recorded. Plan of Treatment Reminders Order Date Submit Date Provider Last Modified By Organization Details Last Modified Time Details Appointments None recorded. Lab None recorded. Referral vestibular therapy referral 2022 023 [email or web address], [address] [place] [address] , Located On The Lower Level Of [facility] [place], [place], [address], 3 14:24:37 Procedures None recorded. Surgeries None recorded. Imaging MRI, brain, w/wo contrast 2022 023 [email or web address] (Centralized Scheduling), [address] [place] [address] , [place], [address], 3 07:19:53 Medication Orders None recorded. Patient TargetsNo targets recorded. Patient Instructions Encounter Date Encounter Id Patient Instructions Last Modified By Organization Details Last Modified Time 11/13/2022 [id number] I have personall y reviewed the data obtained and entered from the scribe, medical information specialist or nurse for this patient for this patient encounter. Patient with dizziness. Possible central versus peripheral vestibular dysfunction. Patient to begin vestibular exercises. Patient to proceed with further diagnostic evaluation, ENG and imaging studies. Follow-up in 3-4 weeks. Patient states has barium swallow scheduled [email or web address] Not available 11/13/2022 11:33:09 Reason for Referral Vestibular Therapy Referral for Dizziness Referring Physician: Victor Manuel Vitale, Otolaryngology, Encounter Date: 11/13/2022 Problems Name Problem SNOMED Code Status Onset Date Resolution Date Notes Provider Name and Address Organization Details Recorded Time Hypertensive disorder 93617625 Active 2022 KARSTEN Means [facility] & [place] 12:49:45 Problem Notes None recorded. Procedures Surgical History Date Name Laterality Status Provider Name and Address Organization Details Recorded Time cardiac catheterization completed Ivonne Valdez [facility] & [place] 11/04/2022 12:51:17 Imaging Results None recorded. Procedure Notes None recorded. Medical Equipment None Reported. Medications Name Sig Start Date Stop Date Status Note LastModified by Organization Details LastModified Time cyclobenzap rine 10 mg tablet TAKE 1 TABLET BY MOUTH ONCE DAILY AT BEDTIME NEEDED active Not Available Not Available No t Available atorvastati n 40 mg tablet TAKE 1 TABLET BY MOUTH ONCE DAILY 11/04 completed Not Available Not Available Not Available atorvastati n 10 mg tablet TAKE 1 TABLET BY MOUTH ONCE DAILY active Not Available Not Available No t Available azithromyci n 250 mg tablet TAKE 2 TABLETS BY MOUTH ON DAY 1, AND THEN TAKE 1 TABLET BY MOUTH ONCE A DAY ON DAY 2 THROUGH DAY 5 11/04 completed Not Available Not Available Not Available aspirin 81 mg tablet,gladys yed release Take 1 tablet every day by oral route. active Not Available Not Available No t Available bisoprolol fumarate 5 mg tablet TAKE 1/2 (ONE-HALF ) TABLET BY MOUTH ONCE DAILY active Not Available Not Available No t Available meclizine 25 mg tablet TAKE 1 TABLET BY MOUTH THREE TIMES DAILY NEEDED FOR 10 DAYS active Not Available Not Available No t Available metformin 1,000 mg tablet TAKE 1 TABLET BY MOUTH TWICE DAILY WITH A MEAL active Not Available Not Available No t Available lisinopril 10 mg tablet TAKE 1 TABLET BY MOUTH ONCE DAILY active Not Available Not Available No t Available lisinopril 2.5 mg tablet TAKE 1 TABLET BY MOUTH ONCE DAILY 11/04 completed Not Available Not Available Not Available glipizide 5 mg tablet TAKE 1/2 (ONE-HALF ) TABLET BY MOUTH ONCE DAILY 30 MINUTES BEFORE BREAKFAST active Not Available Not Available No t Available Vitals Date Recorded Body height Body mass index (BMI) Body weight Oxygen saturation Oxygen saturation in Arterial blood by Pulse oximetry Heart rate Systolic blood pressure Diastolic blood pressure Provider Name and Address Organization Details Last Updated DateTime 3 172.72 cm 27.7 kg/m2 52719.8 1 g 97 % 97 % 75 /min 123 mm[Hg] 80 mm[Hg] Ivonne Angelo [place] - [facility] - [place] & [place] 3 10:53:46 Social History None recorded. Functional Status Question Answer Note LastModified by Organizat ion Details LastModified Time Do you or have you ever used any other forms of tobacco or nicotine? Yes Information not available 11/04/2022 Do you or have you ever used smokeless tobacco? Currently chews tobacco Information not available 11/04/2022 Mental Status None recorded. Family History Relationship Description Onset Age of this Age Resolved Age Notes LastModified by Organization Details LastModified Time Mother Heart disease [email or web address] Not available 2022 12:50:04 Father Myocardial infarction [email or web address] Not available 11/04 12:50:16 Father Cerebrovascu lar accident [email or web address] Not available 04/2023 12:50:27 Unspecified Relation Chronic obstructive pulmonary disease [email or web address] Not available 2022 12:50:39 Medical History No medical history recorded. Past Encounters Encounter ID Performer Location Encounter Start Date Encounter Closed Date Diagnosis/Indication Diagnosis SNOMED-CT Code Diagnosis ICD10 Code Diagnosis Note [id number] Victor Manuel Vitale MD [facility] [place] [address] [place] [phone] 11/13/2022 10:27:38 11/13/2022 11:35:03 Dizziness 434589001 R42 Dysphagia 11727623 R13.1 0 Health Concerns Section Related Observation LastModified by Organization Detai ls LastModified Time None Recorded Concern Status LastModified by Organization Details LastModified Time None Recorded Advance Directives Directive None Recorded Payers Insurance Date Sequence Insurance Name Policy Number Policy Carrington Covered Member ID Carrington Member ID Guarantor Name 11/13/2022 2 [employer] (MEDICARE SUPPLEMENT) Derrick Roach [id number] Derrick Roach 11/13/2022 1 MED[place] Derrick Roach [id number] Derrick Roach Notes Date Note Type Note Provider Name and Address Organization Details Recorded Time 11/13/2022 text/html Patient is here for dizziness, states he has had dizziness for the last few months. States it happens when goes from a sitting to standing position or when bending over. States he does have balance problems. Patient presents for evaluation and management of ongoing dizziness that seems to have progressed over the past month. Patient with unsteadiness wobbliness since stroke several years ago. Patient states min walk feels like being pulled forward. Also has issues with difficulty swallowing Victor Manuel Vitale MD [address] [place] [address],[address], [place], [address], [place] - [facility] - [place] & [place] 11/13/2022 11:36:18
--- NOTE | 2024-11-10 09:00 | RESP.PFTSS ---
Patient unable to follow coaching to perform an accurate FVC. RT tried several times, yet patient could not follow coaching. Dr. Saldivar's staff notified.
== END 2024-11-10 23:59 | disposition home or self-care (01) ==
PROVIDERS: PCP Nurse Practitioner Family; Visit Provider Internal Medicine Pulmonary Disease
DX: J44.9 Chronic obstructive pulmonary disease, unspecified (principal)
CPT/HCPCS: 94618

== ENCOUNTER 2025-02-02 13:23 | Emergency (ER) | payer MEDICARE, SELFPAY ==
[2025-02-02] VITALS (8 sets, daily range): BP systolic 110–143; BP diastolic 70–87; PULSE 67–78; RESP 14–22; TEMP 36.9–37.2; O2SAT 97–100; BMI 24.3; BMI 22.8
--- NOTE | 2025-02-02 13:21 | CT_ITS ---
FINAL REPORT TECHNIQUE: Thin section axial images were obtained from the aortic arch to the skull base after intravenous contrast injection per CTA protocol. Multiplanar reconstruction images were obtained. Exam was performed using dose reduction techniques and the ALARA principle. CLINICAL HISTORY: possible stroke COMPARISON: None FINDINGS: CTA NECK: Aortic arch: There is a normal three-vessel configuration to the aortic arch. There is no significant stenosis of the great vessels at their origins. Right carotid artery: The right common carotid artery is patent without stenosis. There is minimal calcified plaque present in the right carotid bifurcation without significant stenosis. The cervical portions of the right internal carotid artery are patent without stenosis. 0% stenosis per NASCET criteria. Left carotid artery: The left common carotid artery is patent without stenosis. There is dense plaque seen at the bifurcation of the common carotid artery and carotid bulb, which produces 80 to 90% luminal diameter stenosis. The cervical portions of the left internal carotid artery are patent without stenosis. 80-90 % stenosis per NASCET criteria. Vertebral arteries: The vertebral arteries are patent. No significant stenosis. Other soft tissues: Unremarkable. IMPRESSION: 1. Dense calcified plaque is seen at the bifurcation of the left common carotid artery and carotid bulb, which produces 80 to 90% luminal diameter stenosis. 2. Minimal plaque is present in the right carotid bulb producing 0% stenosis. 3. The vertebral arteries are antegrade in flow direction and patent bilaterally without significant stenosis. Reviewed, Interpreted and Dictated by Lakshmi Castañeda MD Transcribed by Sydni Hung Authenticated and [facility]
--- NOTE | 2025-02-02 13:21 | CT_ITS ---
FINAL REPORT TECHNIQUE: Thin section axial images were obtained from skull base to vertex without contrast. Coronal and sagittal reconstruction images were obtained from the axial data. Exam was performed using dose reduction techniques such as automated exposure control, adjustment of the mA and kV according to patient size, and use of iterative reconstruction technique. CLINICAL HISTORY: possible stroke COMPARISON: 01/05/2023 FINDINGS: There is atrophy. No mass effect or midline shift. No intracranial hemorrhage. The ventricles are enlarged out of proportion to the degree of atrophy, a new finding since the prior CT of 2022. Periventricular low density is likely related to changes of chronic small vessel ischemia. The basilar cisterns are preserved. The posterior fossa is without acute abnormality. The soft tissues are without acute abnormality. Note is made of complete opacification of the right maxillary sinus. No acute osseous abnormality is identified. IMPRESSION: No hemorrhage or evidence of acute large cortical infarct. The ventricles are enlarged out of proportion to degree of atrophy, which may be secondary to hydrocephalus. This finding is new since the prior CT of 2022. Reviewed, Interpreted and Dictated by Lakshmi Castañeda MD Transcribed by Sydni Hung Authenticated and [facility]
--- NOTE | 2025-02-02 13:21 | CT_ITS ---
FINAL REPORT TECHNIQUE: Thin section axial images are obtained through the brain after intravenous contrast injection. Multiplanar reconstructions were obtained from the axial data. Exam was performed using dose reduction techniques such as automated exposure control, adjustment of the mA and kV according to patient size, and use of iterative reconstruction technique. CLINICAL HISTORY: possible stroke COMPARISON: None FINDINGS: The intracerebral portions of the carotid arteries are patent. The anterior and middle cerebral arteries are patent. The posterior cerebral arteries arise from the basilar artery. They are patent. [place] is intact. The basilar artery is patent. The vertebral arteries are patent. There is no significant stenosis, aneurysm, or AVM. 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 IMPRESSION: Unremarkable CT angiogram of the intracerebral vasculature without evidence of large vessel occlusion or significant stenosis. Reviewed, Interpreted and Dictated by Lakshmi Castañeda MD Transcribed by Sydni Hung Authenticated and [facility]
[2025-02-02] MEDS: IOPAMIDOL-370 (76%);100ML BOTTLE 80 ML IV (13:26)
[2025-02-02] MEDS: SODIUM CHLORIDE 0.9% 10ML SYR (RAD ONLY) 10 ML IV (13:26)
[2025-02-02] MEDS: 0.9 % SODIUM CHLORIDE 50 ML VIAL IV (13:26)
--- NOTE | 2025-02-02 13:27 | HMH.EDGENADL ---
Discharge Plan Disposition Patient Disposition: Xfer Other Prescriptions Prescriptions: No Action albuterol sulfate [Ventolin HFA] 90 mcg/actuation HFA aerosol inhaler 2 inh inhalation Q6H PRN (Reason: shortness of breath or wheezing) 90 Days Qty: 18 3RF aspirin [Adult Low Dose Aspirin] 81 mg tablet,delayed release (DR/EC) 81 mg PO DAILY levothyroxine 25 mcg capsule 25 mcg PO DAILY mycophenolate mofetil 250 mg capsule 500 mg PO BID Qty: 120 5RF bisoprolol fumarate 5 mg tablet 2.5 mg PO DAILY Qty: 90 3RF fluticasone furoate-vilanterol [Breo Ellipta] 100-25 mcg/dose blister with device 1 inh inhalation DAILY Qty: 90 2RF potassium chloride 20 mEq tablet extended release See Rx Instructions .ROUTE .COMPLEX Qty: 90 3RF Dose Instruction: Take 1 tablet by mouth once daily Rx Instructions: Take 1 tablet by mouth once daily isosorbide mononitrate 30 mg tablet extended release 24 hr 15 mg PO DAILY 30 Days Qty: 15 6RF atorvastatin 10 mg tablet See Rx Instructions .ROUTE .COMPLEX Qty: 90 0RF Dose Instruction: TAKE 1 TABLET BY MOUTH AT BEDTIME NIGHTLY Rx Instructions: TAKE 1 TABLET BY MOUTH AT BEDTIME NIGHTLY furosemide 20 mg tablet 20 mg PO DAILY Qty: 90 3RF metformin 1,000 mg tablet See Rx Instructions .ROUTE .COMPLEX Qty: 180 0RF Dose Instruction: Take 1 tablet by mouth twice daily Rx Instructions: Take 1 tablet by mouth twice daily Referrals Follow up/Referrals: Derrick Lang MD [Primary Care Provider, Internal Medicine] - See instructions Clinical Impressions Clinical Impression: Stroke-like symptoms, Carotid artery stenosis Stand Alone Forms Stand Alone Forms: Transfer Record - ED Print Language Print Language: Nepali Discharge ED Provider: Diogo Luke General Adult HPI General Chief complaint: Neuro Symptoms/Deficit Stated complaint: Possible stroke Time Seen by Provider: 02/02/25 13:25 History of Present Illness HPI narrative: Derrick Roach is a 75y male with past medical history of pretension, hyperlipidemia, type 2 diabetes, CVA who presents to the emergency department due to a stroke. Per EMS, the patient reported that his last known normal was at 1130 this morning. Family states that they talked to him and around noon over the phone and when asked if he was ok he said no . No blood thinner use, takes a daily aspirin. EMS gave stroke screen of 3 for speech changes, unable to follow commands, and unable to identify objects. They stated that he is usually conversation and follows commands approporiately. Patient denies pain but intermittently follows commands. Unable to identify objects. Related Data Home Medications ?Medication ?Instructions ?Recorded ?Confirmed aspirin 81 mg tablet,delayed 81 mg PO DAILY heart health 04/18/20 11/18/24 release (Adult Low Dose Aspirin) levothyroxine 25 mcg capsule 25 mcg PO DAILY thyroid 11/21/22 11/18/24 Previous Rx's ?Medication ?Instructions ?Recorded albuterol sulfate 90 mcg/actuation 2 inh inhalation Q6H PRN shortness 11/12/23 aerosol inhaler (Ventolin HFA) of breath or wheezing 90 days #18 grams bisoprolol fumarate 5 mg tablet 2.5 mg (1/2 x 5 mg) PO DAILY #90 03/22/24 tabs fluticasone furoate 100 1 inh inhalation DAILY #90 ea 03/30/24 mcg-vilanterol 25 mcg/dose inhalation powder (Breo Ellipta) potassium chloride 20 mEq See Rx Instructions .Route 07/01/24 tablet,extended release .COMPLEX #90 tabs isosorbide mononitrate 30 mg 15 mg (1/2 x 30 mg) PO DAILY 30 08/24/24 tablet,extended release 24 hr days #15 tabs atorvastatin 10 mg tablet See Rx Instructions .Route 10/01/24 .COMPLEX #90 tabs mycophenolate mofetil 250 mg 500 mg (2 x 250 mg) PO BID #120 11/18/24 capsule caps furosemide 20 mg tablet 20 mg PO DAILY #90 tabs 01/10/25 metformin 1,000 mg tablet See Rx Instructions .Route 01/21/25 .COMPLEX #180 tabs Allergies Allergy/AdvReac Type Severity Reaction Status Date / Time No Known Allergies Allergy Verified 11/18/24 13:57 [facility] Disclaimer: The information contained in this section may have been updated after the patient was seen, as this information can be updated by other users. Medical History Immunosuppressed due to chemotherapy Immunosuppressed status Pulmonary arterial hypertension RVSP 35-40 Hilar lymphadenopathy ILD (interstitial lung disease) Rheumatoid arthritis Hypothyroid Atypical angina Hx-TIA (transient ischemic attack) Skin lesion of left ear Right maxillary sinusitis, chronic Dyspnea on exertion Carotid artery stenosis History of CVA (cerebrovascular accident) Mild left-sided weakness, residual dysarthria dysphagia, Evidence of subclinical lacunar or subcortical strokes. Cannot exclude vascular parkinsonism, expect from hydrocephalus. He does not have signs, symptoms suggestive of NPH. Plan is to continue to follow-up conservatively at this time. Diastolic dysfunction HLD (hyperlipidemia) CAD (coronary artery disease) DM2 (diabetes mellitus, type 2) Cerebrovascular accident Surgical History Hx of cardiac cath Family History Other Cancer Diabetes Stroke Social History Smoking Status: Never smoker alcohol intake: former substance use type: denies use current occupational status: other Travel in the last 8 weeks?: None household members: spouse housing: house marital status: service: No intermediate: No current occupational exposures/hazards: No caffeine: Yes Have you lived/traveled outside US in past 30 days?: No Contact w/someone who lives/traveled outside US past 30 days?: No Exposure to someone with infectious disease in past 14 days?: No Do you have a fever (greater than 100.4 F or 38 C)?: No Have you tested positive for COVID-19?: No Exposed to someone with COVID-19 in past 14 days?: No Do you have a sore throat?: No Do you have a cough?: No Do you have any weakness?: No Do you have any diarrhea?: No Are you experiencing any unusual bleeding?: No Do you have any muscle aches/pain?: No Do you have any abdominal pain?: No Are you experiencing loss of taste or smell?: No Other Medical History Have you received the Flu Vaccine for this season: No Have you received the Pneumonia Vaccine: Yes ROS Obtained: Yes Systems reviewed as appropriate & no additional complaints except as documented Physical Exam General General appearance: alert and in no apparent distress Head Head exam: atraumatic Eye Eye exam: Present normal appearance, PERRL and EOMI ENT ENT exam: Present normal external ear exam Neck Neck exam: Present full ROM Chest Chest inspection: Present symmetric chest wall rise Respiratory Respiratory exam: Present normal lung sounds bilaterally; Absent respiratory distress Cardiovascular Cardiovascular exam: Present regular rate and normal rhythm Abdominal Exam Abdominal exam: Present soft; Absent tenderness or guarding exam: Present deferred Extremities Exam Extremities exam: Present normal inspection Back Exam Back exam: Present normal inspection Neurological Exam Neurological exam: Present alert; Absent oriented X3 (Oriented to self only. Unable to location or year. ) Expanded Neurological Exam Comment: Patient is unable to perform [id number] testing. States that he follows directions. When touching the right leg patient points to the left leg when asked which leg I am touching. No weakness in the extremities. Dysarthria is noted. Extinction is noted as patient is not able to identify what a watch is. Psychiatric Psychiatric exam: Present normal affect Skin Skin exam: Present warm and dry Medical Decision Making Medical Records Screening: Per USPSTF and CDC recommendations, given the prevalence of disease in our region, it is our hospital?s policy to screen for HIV and viral Hepatitis for all patients aged 18 and over and those with ongoing risk factors. Rickie Inquiry Pt receiving controlled substance: No Vital Signs: 02/02/25 13:34 02/02/25 13:45 02/02/25 13:45 Temperature 99.0 F 99.0 F Temperature Source Oral Pulse Rate 78 78 Pulse Rate [Right] 78 Respiratory Rate 17 22 22 Blood Pressure 134/83 Blood Pressure [Right Arm] 134/83 Blood Pressure Mean [Right Arm] 100 02 Sat by Pulse Oximetry 100 100 100 Oxygen Delivery Method Room Air 02/02/25 14:00 Temperature Temperature Source Pulse Rate Pulse Rate [Right] Respiratory Rate 19 Blood Pressure 110/70 Blood Pressure [Right Arm] Blood Pressure Mean [Right Arm] 02 Sat by Pulse Oximetry 97 Oxygen Delivery Method Room Air Lab Data Lab Results 02/02/25 13:05: WBC 8.0, RBC 4.43 L, Hgb 13.2 L, Hct 42.1, MCV 95.0 H, MCH 29.8, MCHC 31.4 L, RDW 12.8, Plt Count 197, MPV 10.3, Neut % (Auto) 79.5, Lymph % (Auto) 10.2, [place] % (Auto) 7.4, Eos % (Auto) 2.1, Baso % (Auto) 0.4, Neut # (Auto) 6.3, Lymph # (Auto) 0.8, [place] # (Auto) 0.6, Eos # (Auto) 0.2, Baso # (Auto) 0.0, PT 11.1, INR 1.00, APTT 24.8, Sodium 142, Potassium 5.5 H, Chloride 106, Carbon Dioxide 24, Anion Gap 17.5 H, BUN 35 H, Creatinine 1.60 H, Estimated Creat Clear 40, Estimated GFR 43 L, Est GFR ( Amer) 52 L, Glucose 126 H, Calcium 10.1, Total Bilirubin 0.7, AST 32, ALT 18, Alkaline Phosphatase 99, Troponin I < 0.01, Total Protein 8.2, Albumin 4.5, Globulin 3.7 H, Albumin/Globulin Ratio 1.2, Triglycerides 112, Cholesterol 117 L, LDL Cholesterol Direct 61.68 L, VLDL Cholesterol 22, HDL Cholesterol 26 L, Cholesterol/HDL Ratio 4.5 H, Plasma/Serum Alcohol < 10 02/02/25 13:31: POC Glucose 113 H 02/02/25 13:05 02/02/25 13:05 Orders (Tests/Meds): ED MEDICATIONS Generic Name Dose Route Start Last Admin Trade Name Freq PRN Reason Stop Dose Admin Lactated Ringer's 1,000 mls @ 999 mls/hr 02/02/25 14:11 02/02/25 14:26 Lactated Ringer's 1000 Ml Bag IV 02/02/25 15:11 999 mls/hr .Q1H1M ONE Administration Sodium Chloride 10 ml 02/02/25 13:22 Sodium Chloride 0.9% 10ml Flush Syringe IV 03/04/25 13:21 NEEDED PRN Maintain IV Site Discontinued Medications Generic Name Dose Route Start Last Admin Trade Name Freq PRN Reason Stop Dose Admin Aspirin 325 mg 02/02/25 14:11 02/02/25 14:26 Aspirin 325mg Tablet PO 02/02/25 14:12 325 mg ONCE ONE Administration Clopidogrel Bisulfate 300 mg 02/02/25 14:11 02/02/25 14:26 Clopidogrel 300mg Tablet PO 02/02/25 14:12 300 mg ONCE ONE Administration Iopamidol 80 ml 02/02/25 13:26 02/02/25 13:26 Iopamidol-370 (76%);100ml Bottle IV 02/02/25 13:27 80 ml ONCE ONE Administration Sodium Chloride 50 ml 02/02/25 13:26 02/02/25 13:26 0.9 % Sodium Chloride 50 Ml Vial IV 02/02/25 13:27 50 ml ONCE ONE Administration Sodium Chloride 10 ml 02/02/25 13:26 02/02/25 13:26 Sodium Chloride 0.9% 10ml Syr (Rad Only) IV 02/02/25 13:27 10 ml ONCE ONE Administration ORDERS Category Date Time Status CT angio head Stat Cat Scan 02/02/25 13:[address] angio neck Stat Cat Scan 02/02/25 13:[address] head/brain wo con Stat Cat Scan 02/02/25 13:21 Completed Activated Partial Thrombo Time Stat Lab 02/02/25 13:05 Completed Complete Blood Count Auto Diff Stat Lab 02/02/25 13:05 Completed Comprehensive Metabolic Panel Stat Lab 02/02/25 13:05 Completed Drug Screen,Urine Stat Lab 02/02/25 13:22 Ordered Ethyl Alcohol Stat Lab 02/02/25 13:05 Completed Lipid Panel Stat Lab 02/02/25 13:05 Completed POC Glucose,Bedside Routine Lab 02/02/25 13:31 Completed Prothrombin Time INR Stat Lab 02/02/25 13:05 Completed Troponin I Q3H Lab 02/02/25 16:30 Ordered Troponin I Q3H Lab 02/02/25 19:30 Ordered Troponin I Stat Lab 02/02/25 13:05 Completed Urinalysis and Microscopic Stat Lab 02/02/25 13:22 Ordered ECG Request Stat Y 02/02/25 13:22 Ordered Medical Decision Narrative: Derrick Roach is a 75y male with past medical history of pretension, hyperlipidemia, type 2 diabetes, CVA who presents to the emergency department due to a stroke. Per EMS, the patient reported that his last known normal was at 1130 this morning. Family states that they talked to him and around noon over the phone and when asked if he was ok he said no . No blood thinner use, takes a daily aspirin. EMS gave stroke screen of 3 for speech changes, unable to follow commands, and unable to identify objects. They stated that he is usually conversation and follows commands approporiately. Patient denies pain but intermittently follows commands. Unable to identify objects. On arrival, patient was taken directly to the CT scanner. Patient was able to was unable to tell me where he is and does not care. The past, but speech is not intelligible. He will intermittently follow commands, such as raising his arms his legs, however when asked to raise his left leg, he raises his right leg and vice versa. Patient will cross his legs when asked to do ikme-by-kqqo testing. Unable to perform movements. Unable to follow commands. Finger-nose testing unable to perform because could not follow commands. Unable to identify what a wrist watch is. Differential diagnosis includes, but is not limited to: Stroke, electrolyte derangement, hypoglycemia, metabolic encephalopathy, urinary tract faction, among others. The most morbid conditions were considered and workup was based on these. Workup in the emergency room included stroke CTs including CTA head and neck, CT head without, CT with differential, CMP, PT/INR, APTT, troponin, EKG, urinalysis, UDS, lipid panel, fingerstick blood glucose, which was interpreted by me personally. Which was normal at [address] images interpreted by me personally. No intracranial occlusion. Images were [facility] to [facility] neurology service. Patient is outside of TNK window, thus administered. I did discuss patient's recent health for stroke. She except the patient under Dr. Russ hospitalist. She did recommend. Reportedly no aspirin, 300 mg of Plavix as well as 1 L IV fluids. Will call back with bed. At this time, patient's EKG shows no evidence of ischemia. Normal sinus rhythm. No ST elevation or depression. QTc normal 7. Workup so far shows no leukocytosis, hemoglobin stably low at 13.3, hematocrit 42, with normal at 197. Coagulation studies within normal limits. Mildly elevated potassium of 5.5 but electrolytes normal. Mildly elevated 5. Creatinine is chronically elevated but slightly above baseline at 1.6 with BUN of 35. Glucose on CMP was 126. Calcium normal at 10.1. Bilirubin 0.7. Liver enzymes within limits. Troponin less than 0.01. Urinalysis is pending at this time. Per radiology report, patient's ventricles do appear enlarged which is new from CT back in 2022. Reports that this could be secondary to hydrocephalus. No large vessel imaging per radiology. Patient does have a dense calcific plaque at the bifurcation of the left common carotid artery and carotid bulb, which produces 80% diameter stenosis. Minimal plaque is present in the right carotid bulb producing 0% stenosis. Vertebral arteries are antegrade in flow direction are patent bilaterally with no significant stenosis Family is in agreement with transfer to [facility] for further stroke management. Critical Care Critical Care Time Critical Care Time: Yes Attestation: On 02/02/25, the high probability of a clinically significant, sudden or life threatening deterioration of the following system(s) required my full and direct attention, intervention and personal management. The time I documented below is in addition to time spent performing reported procedures but includes the following listed in this critical care notation. Total Time Total Critical Care Time: 35
[2025-02-02 13:31] LABS: Hematocrit 42.1 % (42.0-52.0); Hemoglobin 13.2 g/dL (14.1-18.0); Immature Granulocytes % 0.4 %; Mean Corpuscular HGB Conc 31.4 g/dL (31.8-35.4); Mean Corpuscular Hemoglobin 29.8 pg (27.0-31.2); Mean Corpuscular Volume 95.0 fl (80-94); Nucleated Red Blood Cells % 0 %; Platelet Count 197 K/mm3 (142-424); Red Blood Count 4.43 M/mm3 (4.60-6.20); Red Cell Distribution Width-SD 44.6 fL; White Blood Count 8.0 K/mm3 (4.8-10.8)
--- NOTE | 2025-02-02 13:31 | ECG_ITS ---
APPROVED REPORT Exam: Resting ECG HR:85 bpm ECG Measurements Heart Rate 85 AXES AL 196 P 52 QRSd 105 QRS 247 QT 365 T 33 QTc 407 Conclusion SINUS RHYTHM INDETERMINATE AXIS INCOMPLETE RIGHT BUNDLE BRANCH BLOCK [90+ ms QRS DURATION, TERMINAL R IN V1/V2, 40+ ms S IN I/aVL/V4/V5/V6] POSSIBLE ANTERIOR MYOCARDIAL INFARCTION , OF INDETERMINATE AGE [30 ms Q WAVE IN V3/V4, OR R < 0.2 mV IN V4] ABNORMAL ECG UNCONFIRMED REPORT Normal sinus rhythm. No ST elevation or depression. QTc 407 Electronically signed by : WILNER SHIPLEY, 02/02/2025 15:42:32
--- NOTE | 2025-02-02 13:33 | PC.NURSE ---
Hilaria Ceron did FSBS and it was 113
[2025-02-02 13:39] LABS: POC Glucose,Bedside 113 gm/dL (70-110)
--- OUTSIDE RECORDS SUMMARY | 2025-02-02 13:44 | XMS_ITS | Clinical Summary ---
Author Organization [facility] Address [address] [place] [id number] Care Team Providers Care Frit Maker Name Role Phone Unavailable Primary Care Provider Unavailabl e Medications metFORMIN (GLUCOPHAGE) 1000 MG tablet Take 1 tablet by mouth 2 (Two) Times a Day With Meals. Active atorvastatin (LIPITOR) 10 MG tablet Take 1 tablet by mouth Daily. Active ASPIRIN 81 PO Take 1 tablet by mouth Daily. Active bisoprolol (ZEBeta) 5 MG tablet Take 0.5 tablets by mouth Daily. Active Active Problems Problem Noted Date Diagnosed Date Osteoarthritis 10/20/2023 Anemia 10/17/2023 Carotid artery stenosis 10/17/2023 Rheumatoid arthritis 10/17/2023 Encounter for long-term (cur rent) use of high-risk medication 10/17/2023 Primary osteoarthritis involving multiple joints 10/17/2023 Current use of steroid medication 10/17/2023 CAD (coronary artery disease) 10/17/2023 Diabetes 10/17/2023 Hypertension 10/17/2023 Hypercholesteremia 10/17/2023 Stroke 10/17/2023 Renal disease 10/17/2023 TIA (transient ischemic attack) 10/17/2023 Social History Tobacco Use Types Packs/Day Years Used Date Smoking Tobacco: Never Tobacco Cessation:Counseling Given: Not Answered Alcohol Use Standard Drinks/Week Comments Never 0 (1 standard drink = 0.6 oz pur e alcohol) Abuse Screen Answer Date Recorded Unsafe at Home or Work/School Not on file Feels Threatened by Someone? Not on file Does Anyone Keep You from Co ntacting Others or Doint Things Outside the Home? Not on file 09/20/2023 Physical Sign of Abuse Present Not on file 0 09/20/2023 Housing Stability Answer Date Recorded Current Living Arrangements Not on file 08/25 Potentially Unsafe Housing Conditions Not on kishore e 09/20/2023 Family and Community Support Answer Sushant e Recorded Help with Day-to-Day Activities Not on file 09/20/2023 Lonely or Isolated Not on file 09/20/2023 Employment Answer Date Recorded Do you want help finding or keeping work or a king b? Not on file 09/20/2023 Disabilities Answer Date Recorded Concentrating, Remembering, or Making Decisions Difficulty Not on file 09/20/2023 Doing Errands Independently Difficulty Not on fi le 09/20/2023 Education Answer Date Recorded Help with school or training? Not on file Preferred Language Not on file 09/20/2023 Sex and Gender Information Value Date Recorded Sex Assigned at Not on file Legal Sex Male 9:33 AM EDT Gender Identity Not on file Sexual Orientation Not on file Plan of Treatment Health Maintenance Due Date Last Done Comments LIPID PANEL 1950 TDAP/TD VACCINES (1 - Tdap) 01/26/1971 COLOGUARD 01/26/1997 COLON CANCER SCREENING 5 YEAR SIGMOIDOSCOPY 01/26/1997 COLONOSCOPY 01/26/1997 COLORECTAL CANCER SCREENING 01/26/1997 CT COLONOGRAPHY 01/26/1997 FECAL OCCULT BLOOD TEST 01/26/1997 FIT Testing (1 year) 01/26/1997 Pneumococcal Vaccine 50+ (1 of 1 - PCV) 01/26/2002 ZOSTER VACCINE (1 of 2) 01/26/2002 AAA SCREEN ONCE 01/26/2017 ANNUAL PHYSICAL 10/17/2023 HEPATITIS C SCREENING 10/17/2023 COVID-19 Vaccine ( - season) 2025 INFLUENZA VACCINE 02/23/2025
--- OUTSIDE RECORDS SUMMARY | 2025-02-02 13:44 | XMS_ITS | Clinical Summary ---
Author Organization [facility] Address [address] [id number] Care Team Providers Care Continuous Crusher Operator Name Role Phone Unavailable Primary Care Provider [...] 01/18/2019 12:07 PM EDT Plan of Treatment Upcoming Encounters Date Type Department Care Team (Late st Contact Info) Description 02/09/2025 9:10 AM EDT Consult [facility] [address] [place] [address] Krupa Bates MD [address] [place] [address] Health Maintenance Due Date Last Done Comments [facility]-Depression Screening 1950 [facility]-Hepatitis C Screening 1950 [facility]-Medicare Annual Wellness (AWV) 1950 [facility]-/Child/Adol SDOH Screenings 1950 [facility]- SDOH Screenings 01/26/1970 [facility]-Adult SDOH Screenings 01/26/1970 [facility]-DTaP,Tdap,and Td Vaccine s (1 - Tdap) 01/26/1971 CT Colonography 01/26/1997 Colonoscopy 01/26/1997 FIT-DNA 01/26/1997 FIT 01/26/1997 FOBT 01/26/1997 Sigmoidoscopy 01/26/1997 [facility]-Colorectal Cancer Screening 01/26/1997 [facility]-Pneumococcal Vaccine: 50 + Years (1 of 1 - PCV) 01/26/2002 [facility]-Zoster Vaccines (1 of 2) 01/26/2002 [id number] Vaccine (3 - season) 2025 04/12/2021, 08/02/2020 [facility]-Influenza Vaccine (#1) 01/24/202504/14, 03/29/2018 [facility]-RSV Vaccine: 60+ Years o r (1 [...]
[2025-02-02 13:46] LABS: Activated Partial Thrombo Time 24.8 seconds (22.8-30.6); INR 1.00 (0.9-1.1); Prothrombin Time 11.1 seconds (10.1-12.5)
[2025-02-02 13:56] LABS: Troponin I < 0.01 ng/ml (0.00-0.034)
--- NOTE | 2025-02-02 13:56 | PC.NURSE ---
Images shared via [employer] to [employer] per MD request.
[2025-02-02 14:01] LABS: Albumin Level 4.5 g/dl (3.5-5.0); Chloride 106 mmol/L (98-107); Potassium 5.5 mmoL/L (3.5-5.1); Sodium 142 mmol/L (136-145)
[2025-02-02 14:03] LABS: Alanine Aminotransferase 18 U/L (12-78); Aspartate Amino Transferase 32 U/L (17-59); Blood Urea Nitrogen 35 mg/dl (9-20); Creatinine Clearance Estimated 40 mL/min (50-200); Creatinine,Serum 1.60 mg/dl (0.66-1.25); Estimated Glomerular Filt Rate 43 ml/min (>60); GFR (African American) 52 ML/MIN (>60)
[2025-02-02 14:04] LABS: Albumin/Globulin Ratio 1.2 (1.1-1.8); Alkaline Phosphatase 99 U/L (38-126); Anion Gap 17.5 mEq/L (5-15); Bilirubin,Total 0.7 mg/dl (0.2-1.3); Calcium 10.1 mg/dl (8.4-10.2); Carbon Dioxide 24 mmol/L (22.0-30.0); Cholesterol 117 mg/dl (140-200); Globulin 3.7 g/dL (1.3-3.2); Glucose 126 mg/dl (74-100); HDL Cholesterol 26 mg/dl (40-60); Total Protein,Serum 8.2 g/dl (6.3-8.2); Triglycerides 112 mg/dl (30-150)
--- NOTE | 2025-02-02 14:04 | PC.NURSE ---
Dr. Luke speaking with [facility] for possible transfer.
[2025-02-02] MEDS: ASPIRIN 325MG TABLET 325 MG PO (14:26)
[2025-02-02] MEDS: LACTATED RINGERS 1000ML 1,000 ML 999 ML IV (14:26)
--- NOTE | 2025-02-02 15:26 | PC.NURSE ---
Report called to SHIRLEY Atkinson at [facility] for room [id number]
== END 2025-02-02 16:57 | disposition other institution (70) ==
PROVIDERS: Emergency Provider Student in an Organized Health Care Education/Training Program; PCP Internal Medicine Adolescent Medicine
DX: R29.818 Other symptoms and signs involving the nervous system (principal); I65.29 Occlusion and stenosis of unspecified carotid artery; E87.5 Hyperkalemia; R47.9 Unspecified speech disturbances; Z86.73 Personal history of transient ischemic attack (TIA), and cerebral infarction without residual deficits; I10 Essential (primary) hypertension
CPT/HCPCS: 70450; 70496; 70498; 80053; 80061; 80320; 82962; 84484; 85025; 85610; 85730; 93005; 96360; 99285; 99291; J7120; Q9967

== ENCOUNTER 2025-02-15 10:53 | Outpatient (CLI) | payer MEDICARE, SELFPAY ==
--- OUTSIDE RECORDS SUMMARY | 2025-02-02 18:25 | XMS_ITS | Encounter Summary ---
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 Role Phone Janet Gardner APRN Primary Care Provider [phone] Reason for Referral * Home Health (Routine) - Pending Review Specialty Diagnoses / Procedures Referred By Contact Referred To Contact Home Health Services Diagnoses Stenosis of left carotid artery Dysarthria Aphasia Cerebrovascular accident (CVA) due to bilateral stenosis of middle cerebral arteries Procedures RI OFFICE/OUTPATIENT NEW MODERATE MDM 45 MINUTES Ruddy Monteiro DO [address] [facility] [address] [place] [address] Phone: tel: fax: [place] [phone] [address] [facility] [address] [place] [address] Phone: tel: fax: Referral ID Status Reason Start Date Expiration Date Visits Requested Visits Authorized [id number] Pending Review Specialty Services Required 02/04/2025 05/06/[phone] * Consultation (Routine) - Pending Review Specialty Diagnoses / Procedures Referred By Christopher medel Referred To Contact Neurology Diagnoses Cerebrovascular accident (CVA) due to bilateral stenosis of middle cerebral arteries Procedures RI OFFICE/OUTPATIENT NEW MODERATE MDM 45 MINUTES Estrella Hsu APRN [address] [facility] [address] [address] Phone: tel: fax: Fanny Sadler, EXCELLENCE LEADER [address] [facility] [address] [address] Phone: tel: fax: Referral ID Status Reason Start Date Expiration Date Visits Requested Visits Authorized [id number] Pending Review Specialty Services Required 02/04/2025 05/06/2026 1 1 * Invasive Procedures (Routine) - Pending Review Specialty Diagnoses / Procedures Referred By Contac t Referred To Contact Diagnoses Stenosis of left carotid artery Procedures Invasive peripheral vascular study Karlo Luke MD [address] [facility] [address] [place] [address] Phone: tel: fax: Referral ID Status Reason Start Date Expiration Date V isits Requested Visits Authorized [id number] Pending Review 02/03/2025 05/05/2026 1 1 * MRI/CAT/PET Scan (Routine) - Closed Specialty Diagnoses / Procedures Referred By Contac t Referred To Contact Procedures CT Outside Head Films, Radiant Outside Referral ID Status Reason Start Date Expiration Date Visits Re quested Visits Authorized [id number] Closed 02/02/2025 02/02/2025 1 1 * MRI/CAT/PET Scan (Routine) - Closed Specialty Diagnoses / Procedures Referred By Contac t Referred To Contact Procedures CT Outside Neck Films, Radiant Outside Referral ID Status Reason Start Date Expiration Date Visits Re quested Visits Authorized [id number] Closed 02/02/2025 02/02/2025 1 1 * MRI/CAT/PET Scan (Routine) - Closed Specialty Diagnoses / Procedures Referred By Contac t Referred To Contact Procedures CT Outside Head Films, Radiant Outside Referral ID Status Reason Start Date Expiration Date Visits Re quested Visits Authorized [id number] Closed 02/02/2025 02/02/2025 1 1 Reason for Visit * Auth/Cert Specialty Diagnoses / Procedures Referred By Christopher medel Referred To Contact Diagnoses Cerebrovascular Accident (CVA) Referral ID Status Reason Start Date Expiration Date Visits Re quested Visits Authorized [id number] 1 1 Encounter Details Date Type Department Care Team (Late st Contact Info) Description 02/02/2025 6:25 PM EDT - 02/05/2025 4:05 PM EDT Hospital Encounter [facility] ICU [address] [place] [id number] Vidhya Shields MD [address] [facility] 4[address] [place], [place] [id number] Beckie Hsu MD [address] [facility] [address] [place], [place] [id number] Ruddy Monteiro DO [address] [facility] [address] [place] [id number] Iker Gomes MD [address] [place], [place] [id number] Stenosis of left carotid artery (Primary Dx); Dysarthria; Aphasia; Cerebrovascular accident (CVA) due to bilateral stenosis of middle cerebral arteries Discharge Disposition: Home-Health Care [facility] Social History Tobacco Use Types Packs/Day Years Used Date Smoking Tobacco: Never Alcohol Use Standard Drinks/Week Comments Never 0 (1 standard drink = 0.6 oz pur e alcohol) [facility] Utilities Answer Date Recorded In the past 12 months has [employer], gas, oil, or water [employer] threatened to shut off services in your home? No 02/03/2025 AUDIT-C Answer Date Recorded Q1: How often do you have a drink containing alcohol? Never 02/02/2025 Q2: How many drinks containi ng alcohol do you have on a typical day when you are drinking? Patient does not drink Q3: How often do you have si x or more drinks on one occasion? Never 02/02/2025 Exercise Vital Sign Answer Date Recorde d On average, how many days pe r week do you engage in moderate to strenuous exercise (like a brisk walk)? 0 days 02/03/2025 On average, how many minutes do you engage in exercise at this level? 0 min 02/03/2025 Hunger Vital Sign Answer Date Recorded Within the past 12 months, y ou worried that your food would run out before you got the money to buy more. Never true 02/04/20 25 Within the past 12 months, t he food you bought just didn't last and you didn't have money to get more. Never true 02/03/2025 PRAPARE - Transportation Answer Date Re corded In the past 12 months, has l ack of transportation kept you from medical appointments or from getting medications? No 01/24 In the past 12 months, has l ack of transportation kept you from meetings, work, or from getting things needed for daily living? No 02/03/2025 Abuse Screen Answer Date Recorded Feels Unsafe at Home or Work/School no 02/02/2025 Feels Threatened by Someone no 01/24 Does Anyone Try to Keep You From Having Contact with Others or Doing Things Outside Your Home? no 02/02/2025 Physical Signs of Abuse Present no 02/02/2025 Housing Stability Answer Date Recorded Current Living Arrangements Not on file 01/24 Potentially Unsafe Housing Conditions unable to assess 02/05/2025 Family and Community Support Answer Sushant e Recorded Help with Day-to-Day Activities Not on file 09/20/2023 Lonely or Isolated Not on file 09/20/2023 Employment Answer Date Recorded Do you want help finding or keeping work or a job? I do not need or want help 02/03/2025 Disabilities Answer Date Recorded Difficulty Concentrating, Remembering or Making Decisions no 02/02/2025 Difficulty Managing Errands Independently no 02/02/2025 Education Answer Date Recorded Do you want help with school or training? For example, starting or completing job training or getting a high school diploma, GED or equivalent No 02/03/2025 Preferred Language Gibraltarian 02/03/2025 Sex and Gender Information Value Date Recorded Sex Assigned at Not on file Legal Sex Male 9:33 AM EDT Gender Identity Not on file Sexual Orientation Not on file documented as of this encounter Last Filed Vital Signs Vital Sign Reading Time Taken Comments Blood Pressure 115/74 02/05/2025 3:00 PM EDT Pulse 64 02/05/2025 3:00 PM EDT Temperature 36.5 C (97.7 F) 02/05/2025 12:00 PM EDT Respiratory Rate 18 02/05/2025 2:00 PM EDT Oxygen Saturation 93% 02/05/2025 3:00 PM EDT Inhaled Oxygen Concentration - - Weight 68 kg (150 lb) 02/03/2025 11:00 AM EDT Height 157.5 cm (5' 2 ) 02/03/2025 11:00 AM EDT Body Mass Index 27.44 02/03/2025 11:00 AM EDT documented in this encounter Functional Status * Question Answer Date of Assessment Author 1. Wish to be (Past 1 Month) No 025 8:30 PM EDT China Cardoso RN 2. Non-Specific Active Suici mitzi Thoughts (Past 1 Month) No 02/02/2025 8:30 PM EDT Eduard Cardoso RN * Calculated C-SSRS Risk Score (Lifetime/Recent) Answer Date of Assessment Author No Risk Indicated 02/02/2025 8:30 PM EDT China Fan RN * [place] Suicide Severity Rating Scale (Screener/Recent Self-Report) Question Answer Date of Assessment Author 6. Suicidal Behavior (Lifetime) No 8:30 PM EDT China Cardoso RN documented as of this encounter Discharge Summaries * Hector Grijalva APRN - 02/05/2025 12:56 PM EDT DISCHARGE SUMMARY Patient name: Derrick Roach CSN: [id number] : 1950 Date of Admission: 02/02/2025 Date of Discharge: 02/05/2025 Admitting Physician: Beckie Hsu MD Primary Care Provider: Janet Gardner APRN Consultations: Stroke Neurology Mason Desouza MD Neurosurgery Admission Diagnosis: Stroke Discharge Diagnoses: Stroke Carotid artery stenosis Diabetes Hypertension Hypercholesteremia Procedures: Procedure(s): 02/04/25 Left Carotid Stent Imaging: MRI Brain Without Contrast Result Date: 02/03/2025 Impression: Small areas of acute cortical infarct are present within the left frontal and temporal lobes, without evidence of associated hemorrhage or significant mass effect. Otherwise moderate typical chronic and age-related findings are present. Electronically Signed: Jona Iniguez MD 56:05 AM EDT Workstation ID: [id number] History of Present Illness: Derrick Roach is a 75 y.o. male with known medical diagnoses of essential hypertension, hyperlipidemia, diabetes mellitus type 2, CAD, history of right hemispheric stroke (data deficient, reported residual left-sided weakness), and history of TIA who presented to [facility] today for further evaluation of speech difficulty which his noted at approximately 1200 today. Perreport when she left the house for work 0800 he was in his normal state of health and when she called him on her lunch break she noted that he had nonsensical speech. [facility] Stroke team was notified andrecommended loading with aspirin 325 mg and Plavix 300 mg prior to transfer as well as received a normal saline fluid bolus to achieve SBP >120. Patient was transferred to [facility] for higher level of care. Patient continues some aphasia. Still some difficulty with findings the right words. Denies N/V/F/C. at the bedside, permission obtained to discuss medical condition/status. (End of copied text). Hospital Course: Patient admitted to Telemetry 2* the above listed problems above. OSH imaging reviewed by stroke neurology team noting chronic infarcts on CT head, CTA with significant stenosis of left ICA at the carotid bifurcation and some mild atherosclerotic plaque at the right carotid bifurcation. Additional calcified plaque distal to the bilateral distal ICAs. MRI obtained here showing acute infarct in the left frontotemporal lobes as well as diffuse chronicmicrovascular disease. Neurosurgery consulted for left ICA stenosis. Patient underwent left ICA stenting on 02/04/25. Admitted to ICU afterwards. Postop hypotension and bradycardia noted / patient received 1.5 L IVF and BP recovered. PT/OT recommended HH. Case management has set up HH for SN/PT/OT/[employer] It has been determined by all primary and consulting parties that the patient has reached the maximum benefit of his inpatient stay and is ready for d/c home today. He is hemodynamically stable, tolerating PO diet, and ambulating. Stroke Neurology / Neurosurgery d/c orders are reflected below. BP medications held at d/c as patient's BP controlled without and due to hypotension yesterday. He has been instructed to check BP twice daily, when to restart, and to f/u with PCP Friday for further instructions. F/u with Stroke Clinic in [address] Desouza in 3 months. Vitals: BP 108/69 (BP Location: Left arm, Patient Position: Lying) Pulse 66 Temp 97.7 ??F (36.5 ??C) (Oral) Resp 18 Ht 157.5 cm (62 ) Wt 68 kg (150 lb) SpO2 98% BMI 27.44 kg/m?? Physical Exam: Constitutional: Appears well-developed and well-nourished. No distress. HEENT: Normocephalic. Skull bandage intact. Neck: Normal range of motion. Neck supple. No JVD present. Cardiovascular: Normal rate, regular rhythm, normal heart sounds and intact distal pulses. No gallop and no friction rub. No murmur heard. Pulmonary/Chest: Effort normal and breath sounds normal. No respiratory distress. No wheezes, rhonchi or rales. Abdominal: Soft. No distension and no mass. There is no tenderness. Musculoskeletal: Normal range of motion. Neurological: Alert and oriented to person, place, and time. No focal deficits Skin: Skin is warm and dry. No rash noted. Extremities: No clubbing, edema or cyanosis. Right radial s/p sheath site clean and intact. Psychiatric: Normal mood and affect. Behavior is normal. Labs: Results from last 7 days Lab Units 02/03/25 1139 WBC 10*3/mm3 7.64 HEMOGLOBIN g/dL 12.4* HEMATOCRIT % 40.3 PLATELETS 10*3/mm3 174 Results from last 7 days Lab Units 02/04/25 0723 02/03/25 1139 SODIUM mmol/L 139 137 POTASSIUM mmol/L 4.6 4.8 CHLORIDE mmol/L 106 102 CO2 mmol/L 21.0* 23.5 BUN mg/dL 20.5 24.7* CREATININE mg/dL 1.26 1.39* CALCIUM mg/dL 9.0 9.3 BILIRUBIN mg/dL -- 0.3 ALK PHOS U/L -- 86 ALT (SGPT) U/L -- 10 AST (SGOT) U/L -- 21 GLUCOSE mg/dL 92 90 No results found for: MG , PHOS Discharge Medications: Discharge Medications PAUSE taking these medications Instructions Start Date bisoprolol 5 MG tablet Wait to take this until your doctor or other care provider tells you to start again. Commonly known as: ZEBeta 0.5 tablets, Oral, Daily furosemide 20 MG tablet Wait to take this until your doctor or other care provider tells you to start again. Commonly known as: LASIX 1 tablet, Daily isosorbide mononitrate 30 MG 24 hr tablet Wait to take this until your doctor or other care provider tells you to start again. Take BP twice daily and okay to resume when systolic BP > 140. Commonly known as: IMDUR 15 mg, Oral, Daily potassium chloride ER 20 MEQ tablet controlled-release ER tablet Wait to take this until your doctor or other care provider tells you to start again. Commonly known as: K-TAB 1 tablet, Daily New Medications Instructions Start Date clopidogrel 75 MG tablet Commonly known as: PLAVIX 75 mg, Oral, Daily Start Date: February 06, 2025 Changes to Medications Instructions Start Date atorvastatin 80 MG tablet Commonly known as: LIPITOR What changed: medication strength how much to take when to take this 80 mg, Oral, Nightly Continue These Medications Instructions Start Date ASPIRIN 81 PO 1 tablet, Oral, Daily metFORMIN 1000 MG tablet Commonly known as: GLUCOPHAGE 1,000 mg, Oral, 2 Times Daily With Meals mycophenolate 250 MG capsule Commonly known as: CELLCEPT 500 mg, Oral, 2 Times Daily Discharge Diet: Diet Instructions Diet: Regular/House Diet; Thin (IDDSI 0) Discharge Diet: Regular/House Diet Fluid Consistency: Thin (IDDSI 0) Activity at Discharge: Activity Instructions Activity as Tolerated Follow-up Appointments Future Appointments Date Time Provider Department Center 05/06/2025 1:30 PM Fanny Sadler APRN [facility] Additional Instructions for the Follow-ups that You Need to Schedule Ambulatory Referral to Home Health As directed Face to Face Visit Date: 02/04/2025 Follow-up provider for Plan of Care?: I treated the patient in an acute care facility and will not continue treatment after discharge. Follow-up provider: JANET GARDNER [[id number]] Reason/Clinical Findings: stroke Describe mobility limitations that make leaving home difficult: imparied functional ability with speech difficulty Nursing/Therapeutic Services Requested: [facility] Occupational Therapy Speech Therapy correction orders: Cardiopulmonary assessments Neurovascular assessments PT orders: Home safety assessment Occupational orders: Home safety assessment [employer] orders: Dysphagia therapy Articulation Cognition Frequency: 1 Week 1 Ambulatory Referral to Neurology As directed 3 months Order Comments: 3 months Discharge Follow-up with PCP As directed Currently Documented PCP: Janet Gardner APRN PCP Follow Up Details: Friday for BP check Discharge Follow-up with Specialty: Stroke Neurology; 1 Month As directed Specialty: Stroke Neurology Follow Up: 1 Month Discharge Follow-up with Specified Provider: Dr. Desouza; 3 Months As directed To: Dr. Desouza Follow Up: 3 Months Discharge Instructions: D/c home today Medications as above Follow-ups as above Further d/c instructions as above Please call 911 or proceed to nearest ED if symptoms worsen or reoccur. Current Code Status Date Active Code Status Order ID Comments User Context 02/02/20252108 CPR (Attempt to Resuscitate) [id number] Beckie Hsu MD Inpatient Question Answer Code Status (Patient has no pulse and is not breathing) CPR (Attempt to Resuscitate) Medical Interventions (Patient has pulse or is breathing) Full Support Level Of Support Discussed With Patient Hector Grijalva, MSN, EXCELLENCE LEADER, [facility] Pulmonary and Critical Care Medicine 02/05/25 Time: Discharge 33 min CC: Janet Gardner APRN Please note that portions of this note were completed with a voice recognition program. Cosigned by Angel Woodall MD at 02/05/2025 3:30 PM EDT Associated attestation - Angel Woodall MD - 02/05/2025 3:30 PM EDT I have reviewed this documentation and agree. documented in this encounter Discharge Instructions * Discharge Instructions* Estrella Hsu APRN - 02/05/2025 10:17 AM EDT -Continue the following medications: Plavix 75mg daily, Aspirin 81mg daily, and Atorvastatin 80mg nightly; watch urine and stool for blood and call office should this occur -Monitor blood pressure; goal 90-140/80-90; advised to continue to monitor BP at home. -Goal blood glucose <140 -Increase physical activity as tolerated; goal exercise 30 minutes/day 3-5 times weekly if able -Call 911 for stroke symptoms (unilateral weakness, unilateral numbness, vision loss/double vision,speech difficulty, trouble walking, sudden severe headache or headache with nausea/vomiting/confusion/or decreased level of consciousness) -Schedule follow-up with your primary care physician -Keep follow-up with Dr. Desouza in 1 month * Attachments The following attachments cannot be sent through Care Everywhere. * Carotid Angioplasty With Stent Care After Lnxr-cl-Betv (Gibraltarian) * Stroke Prevention Rjln-bk-[id number] (Gibraltarian) documented in this encounter Medications at Time of Discharge ASPIRIN 81 PO Take 1 tablet by mouth Daily. atorvastatin (LIPITOR) 80 MG tablet Take 1 tablet by mouth Every Night. 90 tablet 02/05/2025 2:10 PM EDT 02/05/2025 bisoprolol (ZEBeta) 5 MG tablet Take 0.5 tablets by mouth Daily. clopidogrel (PLAVIX) 75 MG tablet Take 1 tablet by mouth Daily. 30 tablet 2 02/05/2025 2:10 PM EDT 02/06/2025 furosemide (LASIX) 20 MG tablet Take 1 tablet by mouth Daily. 01/10/2025 isosorbide mononitrate (IMDUR) 30 MG 24 hr tablet Take 0.5 tablets by mouth Daily. metFORMIN (GLUCOPHAGE) 1000 MG tablet Take 1 tablet by mouth 2 (Two) Times a Day With Meals. mycophenolate (CELLCEPT) 250 MG capsule Take 2 capsules by mouth 2 (Two) Times a Day. potassium chloride ER (K-TAB) 20 MEQ tablet controlled-releas e ER tablet Take 1 tablet by mouth Daily. 12/27/2024 documented as of this encounter Progress Notes * Estrella Hsu, EXCELLENCE LEADER - 02/05/2025 7:36 AM EDT Images from the original note were not included. Stroke Progress Note Chief Complaint: Speech difficulty Subjective Subjective Subjective: No acute events overnight. Patient has had some improvement in his blood pressure, SBP is [id number], he remains asymptomatic. Neurologically he remains intact. He has been ambulating to the bathroom with assistance without difficulty. Objective Temp: [97.5 ??F (36.4 ??C)-98.6 ??F (37 ??C)] 97.8 ??F (36.6 ??C) Heart Rate: [50-62] 51 Resp: [16] 16 BP: (81-120)/(21-74) 98/60 Objective Neurological Exam Mental Status Alert. Oriented only to person and time. Mild dysarthria present. Expressive aphasia and receptive aphasia present. Cranial Nerves CN II: Visual phillips full to confrontation. CN III, IV, : Extraocular movements intact bilaterally. Pupils equal round and reactive to light bilaterally. CN V: Facial sensation is normal. CN VII: Full and symmetric facial movement. CN VIII: Hearing appears to be intact bilaterally. CN XII: Tongue midline without atrophy or fasciculations. Motor Normal muscle bulk throughout. Strength is 5/5 throughout all four extremities. Sensory Sensation is intact to light touch, pinprick, vibration and proprioception in all four extremities. Coordination No obvious dysmetria noted. Gait Not observed. Physical Exam Vitals and nursing note reviewed. Constitutional: General: He is not in acute distress. Appearance: Normal appearance. He is not ill-appearing. HENT: Head: Normocephalic. Mouth/Throat: Mouth: Mucous membranes are moist. Eyes: Extraocular Movements: Extraocular movements intact. Pupils: Pupils are equal, round, and reactive to light. Cardiovascular: Rate and Rhythm: Normal rate and regular rhythm. Pulmonary: Effort: Pulmonary effort is normal. No respiratory distress. Comments: On room air Musculoskeletal: Right lower leg: No edema. Left lower leg: No edema. Skin: General: Skin is warm and dry. Neurological: Mental Status: He is alert. Cranial Nerves: Dysarthria present. No cranial nerve deficit. Sensory: No sensory deficit. Motor: Motor strength is normal.No weakness. Coordination: Coordination normal. Psychiatric: Mood and Affect: Mood normal. Behavior: Behavior normal. Results Review: I reviewed the patient's new clinical results. MRI Brain Without Contrast Result Date: 02/03/2025 Impression: Small areas of acute cortical infarct are present within the left frontal and temporal lobes, without evidence of associated hemorrhage or significant mass effect. Otherwise moderate typical chronic and age-related findings are present. Electronically Signed: Jona Iniguez MD :05 AM EDT Workstation ID: [id number] CTA head/neck (OSH) with significant stenosis of the left ICA at the carotid bifurcation. Some mildatherosclerotic plaque at the right carotid bifurcation. There is additional calcified plaque in the bilateral distal ICAs. WBC Date Value Ref Range Status 02/03/2025 7.64 3.40 - 10.80 10*3/mm3 Final Hemoglobin Date Value Ref Range Status 02/03/2025 12.4 (L) 13.0 - 17.7 g/dL Final Hematocrit Date Value Ref Range Status 02/03/2025 40.3 37.5 - 51.0 % Final Platelets Date Value Ref Range Status 02/03/2025 174 140 - 450 10*3/mm3 Final Lab Results Component Value Date GLUCOSE 92 02/04/2025 BUN 20.5 02/04/2025 CREATININE 1.26 02/04/2025 NA 139 02/04/2025 K 4.6 02/04/2025 CL 106 02/04/2025 CALCIUM 9.0 02/04/2025 PROTEINTOT 7.1 02/03/2025 ALBUMIN 3.8 02/03/2025 ALT 10 02/03/2025 AST 21 02/03/2025 ALKPHOS 86 02/03/2025 BILITOT 0.3 02/03/2025 GLOB 3.3 02/03/2025 AGRATIO 1.2 02/03/2025 BCR 16.3 02/04/2025 ANIONGAP 12.0 02/04/2025 EGFR 60.2 02/04/2025 Lab 02/03/25 1139 HEMOGLOBIN A1C 5.42 Lipid Panel 02/03/2025 11:39 Lipid Panel Total Cholesterol 93 Triglycerides 83 HDL Cholesterol 24 VLDL Cholesterol 17 LDL Cholesterol 52 LDL/HDL Ratio 2.18 Results for orders placed during the hospital encounter of 02/02/25 Adult Transthoracic Echo Complete W/ Cont if Necessary Per Protocol (With Agitated Saline) 02/03/2025 6:57 PM Interpretation Summary Left ventricular systolic function is normal. Left ventricular ejection fraction appears to be 61 -65%. Left ventricular diastolic function is consistent with (grade I) impaired relaxation. The right ventricular cavity is mild to moderately dilated. Aortic sclerosis without aortic stenosis. Mild aortic regurgitation. Mild mitral regurgitation. Mild to moderate tricuspid regurgitation with RVSP 54 mmHg. Results for orders placed during the hospital encounter of 02/02/25 Duplex Carotid - Left Ultrasound CAR 02/04/2025 4:37 PM Interpretation Summary Left carotid stent is patent without evidence of in-stent restenosis. PSV 59.7 cm/s, EDV 16.3 cm/s.Ratio 1.33 Antegrade left vertebral flow. Much improved left ICA velocities compared to the study from 02/03/2025 Results for orders placed during the hospital encounter of 02/02/25 Duplex Carotid - Left Ultrasound CAR 02/04/2025 4:37 PM Interpretation Summary Left carotid stent is patent without evidence of in-stent restenosis. PSV 59.7 cm/s, EDV 16.3 cm/s.Ratio 1.33 Antegrade left vertebral flow. Much improved left ICA velocities compared to the study from 02/03/2025 P2Y12 232 after 300mg load on 02/02 P2Y12 180 after 600mg load 02/04 Assessment/Plan Assessment: This is a 75-year-old male with known medical diagnoses of essential hypertension, hyperlipidemia, diabetes mellitus type 2, CAD, history of right hemispheric stroke (data deficient, reported left residual weakness), and history of TIA who presented to [facility] on 02/02 for further evaluation of speech difficulty which his noted at approximately 1200. Per report when she left the house for work 0800 he was in his normal state of health and when she called him on her lunch break she noted that he had nonsensical speech. Given >4.5 hours he was not a candidate for IV thrombolytic therapy. CTA head/neck revealed critical LICA stenosis but no LVO. He was be admitted to the hospital service for further workup. Carotid ultrasound confirms LICA stenosis of 50-69% with proximal velocities of 238.5/50 and ICA/CCA ratio 3.48. He was evaluated by neurosurgery who plan to place a carotid stent today. Antiplatelet JUSTICE COURT DEPUTY CLERK: ASA [address] DEPUTY CLERK: None Acute left hemispheric stroke, etiology symptomatic carotid stenosis History of right hemispheric stroke and history of TIA LICA stenosis -TIA/CVA order set without thrombolytic is currently in place -Continue DAPT; patient reloaded with 600mg 02/04, recheck P2Y12 180 -Patient had stent with Dr. Desouza 02/04, no complications -CUS with patent stent -Activity as tolerated, fall risk precautions -PT/OT continue to follow, they recommend HH at discharge however given speech difficulties [employer] recommends IRF, CM following -Stroke clinic follow-up in 1 month (added to ADT) -Follow-up with Dr. Desouza in 3 months (added to ADT) 2. Essential hypertension -Keep SBP <140 -OK to resume home BP medications -Management per ICU team 3. Hyperlipidemia -LDL on admission 52, goal <70 for secondary stroke prevention -Atorvastatin 80mg nightly 4. Diabetes Mellitus type 2 -A1c in AM -Maintain euglycemia -Management per primary team Plan of care was discussed with patient, family at bedside, Dr. Woodall (ICU MD) and primary RN.From a neurological standpoint patient be discharged home when cleared by neurosurgery and primary team. Stroke neurology will sign off for now. Please call with any questions or concerns. Discussed the importance of medication compliance Plavix 75mg daily, Aspirin 81mg daily, and Atorvastatin 80mg nightly to help reduce the risk of future cerebrovascular events. Also discussed the signs symptoms that would warrant the patient return back to the emergency department including unilateral weakness, unilateral numbness, visual disturbances, loss of balance, speech difficulties, and/ora sudden severe headache. Patient's family verbalizes their understanding. They have been encouraged to contact our office should they have any questions or concerns prior to his follow-up appointment. Estrella Hsu MSN, EXCELLENCE LEADER, AGACNP-BC, AN- Stroke Neurology * Hector Grijalva APRN - 02/04/2025 12:09 PM EDT Intensive Care Follow-up Hospital: LOS: 1 day Mr. Derrick Roach, 75 y.o. male is followed for: Stroke Subjective Interval History: Encountered patient upon arrival to the ICU. He was hypotensive. 1.5 L IVF given and nursing staff prepared to hang levophed. BP has improved to 90s systolic with IVF. Patient reports he feels bad. Right hand dusky / blue but improved, per nursing report. Intermittent tingling. Unable to deflate TRband 2* bleeding but nursing staff to try again. The patient's past medical, surgical and social history were reviewed and updated in [facility] as appropriate. Objective Infusions: Medications: [Transfer Hold] aspirin, 81 mg, Oral, Daily Or [Transfer Hold] aspirin, 300 mg, Rectal, Daily [Transfer Hold] atorvastatin, 80 mg, Oral, Nightly [Held by provider] bisoprolol, 2.5 mg, Oral, Daily [Transfer Hold] clopidogrel, 75 mg, Oral, Daily [Transfer Hold] insulin lispro, 2-7 Units, Subcutaneous, 4x Daily AC & at Bedtime [Held by provider] isosorbide mononitrate, 15 mg, Oral, Daily [Transfer Hold] mycophenolate, 500 mg, Oral, BID [Transfer Hold] sodium chloride, 10 mL, Intravenous, Q12H [Transfer Hold] sodium chloride, 10 mL, Intravenous, Q12H I reviewed the patient's medications. Vital Sign Min/Max for last 24 hours Temp Min: 98 ??F (36.7 ??C) Max: 98.6 ??F (37 ??C) BP Min: 101/58 Max: 124/79 Pulse Min: 54 Max: 90 Resp Min: 16 Max: 19 SpO2 Min: 75 % Max: 98 % No data recorded Input/Output for last 24 hour shift No intake/output data recorded. Physical Exam: GENERAL: Patient lying in bed and conversant. No acute distress. HEENT: Normocephalic. Bandage noted on head. LUNGS: Chest rise of normal depth and symmetric. Lungs clear to auscultation bilaterally. No wheezes, rhonchi, or rales. HEART: S1,S2 detected. Regular rate and rhythm. No rub, murmur, or gallop. ABDOMEN: Soft, round, nondistended, and nontender. Bowel sounds present. EXTREMITIES: Right hand up to wrist dusky / purple. TR band present. No swelling / bleeding. Sensation intact / intermittent tingling and numbness reported. Slow cap refill. No edema / discoloration otherwise. NEURO/PSYCH: Alert and oriented. Follows commands. Moves all extremities. No focal deficits. Results from last 7 days Lab Units 02/03/25 1139 WBC 10*3/mm3 7.64 HEMOGLOBIN g/dL 12.4* PLATELETS 10*3/mm3 174 Results from last 7 days Lab Units 02/04/25 0723 02/03/25 1139 SODIUM mmol/L 139 137 POTASSIUM mmol/L 4.6 4.8 CO2 mmol/L 21.0* 23.5 BUN mg/dL 20.5 24.7* CREATININE mg/dL 1.26 1.39* GLUCOSE mg/dL 92 90 Estimated Creatinine Clearance: 44.3 mL/min (by C-G formula based on SCr of 1.26 mg/dL). I reviewed the patient's new clinical results. I reviewed the patient's new imaging results/reports including actual images and agree with reports. Imaging Results (Last 24 Hours) No results found for the last 24 hours. Assessment & Plan Impression Stroke Carotid artery stenosis Diabetes Hypertension Hypercholesteremia Derrick Roach is a 75 year-old male with HTN, hyperlipidemia, T2DM, CAD, carotid disease, prior stroke with chronic left sided weakness that presented to [facility] with acute expressive aphasia, and ? ILD that presented to OSH with speech difficulties. MRI showed small areas of cortical infarct in the left frontal and temporal lobes without hemorrhage. Found to have high-grade L ICA stenosis and underwent left stent placement today with Dr. Desouza. Transferred to the ICU postoperatively. Plan Neurology and Neurosurgery following Vasopressor support as needed for hypotension. HR in 50s as well. Most likely 2* baroreceptor reflex. Hold BP medications Deflate TR band per policy / continue neurovascular checks in right hand. Continue ASA, Plavix, Statin. Reloaded with Plavix this AM Correction insulin for T2DM Continue Cellcept. Follows at [facility] for ? ILD. PT/OT following AM labs DVT Prophylaxis: SCDs Time spent: 38 minutes Plan of care and goals reviewed with multidisciplinary/antibiotic stewardship team during rounds. I discussed the patient's findings and my recommendations with patient, family, and nursing staff Hector Grijalva, MSN, EXCELLENCE LEADER, AGACNP- Pulmonary and Critical Care Medicine * Mason Desouza MD - 02/04/2025 12:02 PM EDTSummary: Procedure note Saw patient after procedure with family Patient underwent trans radial carotid stenting for left critical high-grade symptomatic stenosis Doing well Slight perfusion issues in hand release TR band markedly improved Tingling in hand likely secondary to local anesthesia in the thumb After observation for 3 to 5 minutes capillary refill is better From appreciate usual standpoint his right radial access site look good He is awake alert follows commands He still has slight aphasia and is able to move his extremities Blood pressure was stable Plan 1. Status post carotid stent to the left side 2. Needs aspirin Plavix daily 3. Continue IV fluids 4. Okay from a neurointerventional standpoint to discharge tomorrow 5. Will check carotid ultrasound to check patency of stent and he can follow-up in 90 days * Jeffery Phillips PA-C - 02/04/2025 10:07 AM EDT HOD# : 1 No events last night Patient without any events last night. Patient continues stability. Speech is somewhat better today. Had conversation with the family regarding the upcoming procedure. Patient had a P2 Y12 drawn last night that showed he was 232. Patient was reloaded on 600 mg of Plavix and given his aspirin this morning and had a repeat P2 Y12of 180. Patient is brought to [facility] here for a stent Stroke Carotid artery stenosis Diabetes Hypertension Hypercholesteremia Temp: [98 ??F (36.7 ??C)-98.9 ??F (37.2 ??C)] 98.3 ??F (36.8 ??C) Heart Rate: [63-90] 63 Resp: [16-19] 16 BP: (109-124)/(68-98) 118/71 No intake/output data recorded. No intake/output data recorded. Vital signs were reviewed and documented in the chart EXAM Body mass index is 27.44 kg/m??. Patient appeared in good neurologic function with normal comprehension CN grossly intact Moves all extremities to command Dysarthria improving DIAGNOSIS Symptomatic high-grade left carotid artery stenosis PLAN Left carotid stent.. Patient will require a 1 night stay in the ICU. Cosigned by Mason Desouza MD at 02/04/2025 11:16 AM EDT Associated attestation - Mason Desouza MD - 02/04/2025 11:16 AM EDT I have reviewed this documentation and agree. I personally saw and examined prior to procedure P2 Y12 was 180 Plan was symptomatic stenting of left internal carotid for high-grade symptomatic stenosis with high surgical risk features including dyspnea on exertion and cardiac history * Estrella Hsu APRN - 02/04/2025 9:38 AM EDT Images from the original note were not included. Stroke Progress Note Chief Complaint: Speech difficulty Subjective Subjective Subjective: No acute events overnight. Patient just returned from [facility] where he had successful placement ofa left ICA stent. Currently he has some discoloration of his right hand where his TR band is in place and it is cool to the touch, he does have palpable AC pulse. Nursing did attempt to deflate however was unable to given to using puncture site. Blood pressure is also noted to be 81/58, patient didreceive a 500 cc normal saline bolus. I have ordered an additional 1 L normal saline bolu; patient is asymptomatic therefore suspect this is secondary to baroreceptor reflex due to carotid manipulation. Patient denies pain or headache. He does continue to have moderate mixed aphasia. Objective Temp: [98 ??F (36.7 ??C)-98.9 ??F (37.2 ??C)] 98.3 ??F (36.8 ??C) Heart Rate: [63-90] 63 Resp: [16-19] 16 BP: (109-124)/(68-98) 118/71 Objective Neurological Exam Mental Status Alert. Oriented only to person and time. Mild dysarthria present. Expressive aphasia and receptive aphasia present. Cranial Nerves CN II: Visual phillips full to confrontation. CN III, IV, : Extraocular movements intact bilaterally. Pupils equal round and reactive to light bilaterally. CN V: Facial sensation is normal. CN VII: Full and symmetric facial movement. CN VIII: Hearing appears to be intact bilaterally. CN XII: Tongue midline without atrophy or fasciculations. Motor Normal muscle bulk throughout. Strength is 5/5 throughout all four extremities. Sensory Sensation is intact to light touch, pinprick, vibration and proprioception in all four extremities. Coordination No obvious dysmetria noted. Gait Not observed. Physical Exam Vitals and nursing note reviewed. Constitutional: General: He is not in acute distress. Appearance: Normal appearance. He is not ill-appearing. HENT: Head: Normocephalic. Mouth/Throat: Mouth: Mucous membranes are dry. Eyes: Extraocular Movements: Extraocular movements intact. Pupils: Pupils are equal, round, and reactive to light. Cardiovascular: Rate and Rhythm: Regular rhythm. Bradycardia present. Pulmonary: Effort: Pulmonary effort is normal. No respiratory distress. Comments: On room air Skin: General: Skin is warm and dry. Comments: Right hand cool to touch and cyanotic Neurological: Mental Status: He is alert. Cranial Nerves: Dysarthria present. No cranial nerve deficit. Sensory: No sensory deficit. Motor: Motor strength is normal.No weakness. Coordination: Coordination normal. Psychiatric: Mood and Affect: Mood normal. Behavior: Behavior normal. Results Review: I reviewed the patient's new clinical results. MRI Brain Without Contrast Result Date: 02/03/2025 Impression: Small areas of acute cortical infarct are present within the left frontal and temporal lobes, without evidence of associated hemorrhage or significant mass effect. Otherwise moderate typical chronic and age-related findings are present. Electronically Signed: Jona Iniguez MD 56:05 AM EDT Workstation ID: [id number] CTA head/neck (OSH) with significant stenosis of the left ICA at the carotid bifurcation. Some mildatherosclerotic plaque at the right carotid bifurcation. There is additional calcified plaque in the bilateral distal ICAs. WBC Date Value Ref Range Status 02/03/2025 7.64 3.40 - 10.80 10*3/mm3 Final Hemoglobin Date Value Ref Range Status 02/03/2025 12.4 (L) 13.0 - 17.7 g/dL Final Hematocrit Date Value Ref Range Status 02/03/2025 40.3 37.5 - 51.0 % Final Platelets Date Value Ref Range Status 02/03/2025 174 140 - 450 10*3/mm3 Final Lab Results Component Value Date GLUCOSE 92 02/04/2025 BUN 20.5 02/04/2025 CREATININE 1.26 02/04/2025 NA 139 02/04/2025 K 4.6 02/04/2025 CL 106 02/04/2025 CALCIUM 9.0 02/04/2025 PROTEINTOT 7.1 02/03/2025 ALBUMIN 3.8 02/03/2025 ALT 10 02/03/2025 AST 21 02/03/2025 ALKPHOS 86 02/03/2025 BILITOT 0.3 02/03/2025 GLOB 3.3 02/03/2025 AGRATIO 1.2 02/03/2025 BCR 16.3 02/04/2025 ANIONGAP 12.0 02/04/2025 EGFR 60.2 02/04/2025 Lab 02/03/25 1139 HEMOGLOBIN A1C 5.42 Lipid Panel 02/03/2025 11:39 Lipid Panel Total Cholesterol 93 Triglycerides 83 HDL Cholesterol 24 VLDL Cholesterol 17 LDL Cholesterol 52 LDL/HDL Ratio 2.18 Results for orders placed during the hospital encounter of 02/02/25 Adult Transthoracic Echo Complete W/ Cont if Necessary Per Protocol (With Agitated Saline) 02/03/2025 6:57 PM Interpretation Summary Left ventricular systolic function is normal. Left ventricular ejection fraction appears to be 61 -65%. Left ventricular diastolic function is consistent with (grade I) impaired relaxation. The right ventricular cavity is mild to moderately dilated. Aortic sclerosis without aortic stenosis. Mild aortic regurgitation. Mild mitral regurgitation. Mild to moderate tricuspid regurgitation with RVSP 54 mmHg. Results for orders placed during the hospital encounter of 02/02/25 Duplex Carotid Ultrasound CAR 02/03/2025 2:59 PM Interpretation Summary Right internal carotid artery demonstrates a less than 50% stenosis. Antegrade right vertebral flow. Left internal carotid artery demonstrates a 50-69% stenosis. Antegrade left vertebral flow. P2Y12 232 after 300mg load on 02/02 P2Y12 180 after 600mg load 02/04 Assessment/Plan Assessment: This is a 75-year-old male with known medical diagnoses of essential hypertension, hyperlipidemia, diabetes mellitus type 2, CAD, history of right hemispheric stroke (data deficient, reported left residual weakness), and history of TIA who presented to [facility] on 02/02 for further evaluation of speech difficulty which his noted at approximately 1200. Per report when she left the house for work 0800 he was in his normal state of health and when she called him on her lunch break she noted that he had nonsensical speech. Given >4.5 hours he was not a candidate for IV thrombolytic therapy. CTA head/neck revealed critical LICA stenosis but no LVO. He was be admitted to the hospital service for further workup. Carotid ultrasound confirms LICA stenosis of 50-69% with proximal velocities of 238.5/50 and ICA/CCA ratio 3.48. He was evaluated by neurosurgery who plan to place a carotid stent today. Antiplatelet JUSTICE COURT DEPUTY CLERK: ASA [address] DEPUTY CLERK: None Acute left hemispheric stroke, etiology symptomatic carotid stenosis History of right hemispheric stroke and history of TIA LICA stenosis -TIA/CVA order set without thrombolytic is currently in place -Continue DAPT; patient reloaded with 600mg this morning, recheck P2Y12 180 -Patient had stent with Dr. Desouza 02/04 -CUS in AM -Activity as tolerated, fall risk precautions -PT/OT continue to follow, they recommend HH at discharge however given speech difficulties [employer] recommends IRF, CM following -Stroke clinic follow-up in 3 month (added to ADT) -Follow-up with Dr. Desouza in 1 month 2. Essential hypertension -Post-stent, keep SBP <140 -Nicardipine for SBP >140 -Management per ICU team 3. Hyperlipidemia -LDL on admission 52, goal <70 for secondary stroke prevention -Atorvastatin 80mg nightly 4. Diabetes Mellitus type 2 -A1c in AM -Maintain euglycemia -Management per primary team Plan of care was discussed with patient and primary RN. Attempted to contact patient's via telephone to update her however was unable to speak with her. Stroke neurology will continue to follow.Please call with any questions or concerns. Estrella Hsu MSN, EXCELLENCE LEADER, AGACNP-BC, AN- Stroke Neurology * Ruddy Monteiro DO - 02/04/2025 8:33 AM EDT Images from the original note were not included. [facility] Medicine Services PROGRESS NOTE Patient Name: Derrick Roach : 1950 Date of Admission: 02/02/2025 Primary Care Physician: Janet Gardner APRN Subjective Subjective CC: F/u expressive aphasia HPI: Seen this AM pre-procedure. Denies acute complaints. Family at bedside asking about what kind of anesthesia/sedation will be use. Objective Objective Vital Signs: Temp: [97.5 ??F (36.4 ??C)-98.6 ??F (37 ??C)] 97.5 ??F (36.4 ??C) Heart Rate: [53-90] 57 Resp: [16-19] 16 BP: (81-120)/(52-98) 100/57 Physical Exam: Constitutional: Awake, alert, NAD sitting up in bed Respiratory: Clear to auscultation bilaterally, respiratory effort normal Cardiovascular: RRR, palpable radial pulse Gastrointestinal: Positive bowel sounds, soft, nontender, nondistended Psychiatric: Appropriate affect, cooperative Neurologic: Expressive aphasia, moving all extremities equally Results Reviewed: LAB RESULTS: Lab 02/03/25 1139 WBC 7.64 HEMOGLOBIN 12.4* HEMATOCRIT 40.3 PLATELETS 174 MCV 93.5 Lab 02/04/25 0723 02/03/25 1139 SODIUM 139 137 POTASSIUM 4.6 4.8 CHLORIDE 106 102 CO2 21.0* 23.5 ANION GAP 12.0 11.5 BUN 20.5 24.7* CREATININE 1.26 1.39* EGFR 60.2 53.5* GLUCOSE 92 90 CALCIUM 9.0 9.3 HEMOGLOBIN A1C -- 5.42 Lab 02/03/25 1139 TOTAL PROTEIN 7.1 ALBUMIN 3.8 GLOBULIN 3.3 ALT (SGPT) 10 AST (SGOT) 21 BILIRUBIN 0.3 ALK PHOS 86 Lab 02/03/25 1139 CHOLESTEROL 93 LDL CHOL 52 HDL CHOL 24* TRIGLYCERIDES 83 Brief Urine Lab Results None Microbiology Results Abnormal None Duplex Carotid Ultrasound CAR Result Date: 02/03/2025 Right internal carotid artery demonstrates a less than 50% stenosis. Antegrade right vertebral flow. Left internal carotid artery demonstrates a 50-69% stenosis. Antegrade left vertebral flow. MRI Brain Without Contrast Result Date: 02/03/2025 MRI BRAIN WO CONTRAST Date of Exam: 02/03/2025 3:25 AM EDT Indication: Stroke, follow up aphasia anddysarthria. Comparison: None available. Technique: Routine multiplanar/multisequence sequence images of the brain were obtained without contrast administration. Findings: Small areas of diffusion restriction are present consistent with acute infarct along cortical margins in the left frontal and superior temporal lobe. Mild associated edema is present, otherwise without significant mass effect. Midline structures appear normal and the craniocervical junction is satisfactory. Age-related changesare present with moderate generalized volume loss and typical T2 hyperintense subcortical and pontine white matter changes, nonspecific but favored to reflect sequela of chronic microvascular ischemia. There is no evidence of hemorrhage, mass or mass effect. The ventricles demonstrate ex vacuo prominence. The orbits are normal. There is evidence of chronic right maxillary sinusitis. Arterial flowvoids appear maintained. Impression: Impression: Small areas of acute cortical infarct are present within the left frontal and temporal lobes, without evidence of associated hemorrhage or significant mass effect. Otherwise moderate typical chronic and age-related findings are present. Electronically Signed: Jona Iniguez MD 02/03/2025 6:05 AM EDT Workstation ID: [id number] CT Outside Head Result Date: 02/02/2025 This procedure was auto-finalized with no dictation required. CT Outside Neck Result Date: 02/02/2025 This procedure was auto-finalized with no dictation required. CT Outside Head Result Date: 02/02/2025 This procedure was auto-finalized with no dictation required. Results for orders placed during the hospital encounter of 02/02/25 Adult Transthoracic Echo Complete W/ Cont if Necessary Per Protocol (With Agitated Saline) 02/03/2025 6:57 PM Interpretation Summary Left ventricular systolic function is normal. Left ventricular ejection fraction appears to be 61 -65%. Left ventricular diastolic function is consistent with (grade I) impaired relaxation. The right ventricular cavity is mild to moderately dilated. Aortic sclerosis without aortic stenosis. Mild aortic regurgitation. Mild mitral regurgitation. Mild to moderate tricuspid regurgitation with RVSP 54 mmHg. I have personally reviewed the therapy plans: [] PT/OT/ ST Therapy Plans Current medications: Scheduled Meds:[Transfer Hold] aspirin, 81 mg, Oral, Daily Or [Transfer Hold] aspirin, 300 mg, Rectal, Daily [Transfer Hold] atorvastatin, 80 mg, Oral, Nightly [Held by provider] bisoprolol, 2.5 mg, Oral, Daily clopidogrel, 75 mg, Oral, Daily [Transfer Hold] insulin lispro, 2-7 Units, Subcutaneous, 4x Daily AC & at Bedtime [Held by provider] isosorbide mononitrate, 15 mg, Oral, Daily [Transfer Hold] mycophenolate, 500 mg, Oral, BID phenylephrine, , , [Transfer Hold] sodium chloride, 10 mL, Intravenous, Q12H Continuous Infusions:phenylephrine, 0.5-3 mcg/kg/min sodium chloride, 75 mL/hr PRN Meds:. [Transfer Hold] acetaminophen OR [Transfer Hold] acetaminophen OR [Transfer Hold] acetaminophen [Transfer Hold] senna-docusate sodium AND [Transfer Hold] polyethylene glycol AND [TransferHold] bisacodyl AND [Transfer Hold] bisacodyl [Transfer Hold] Calcium Replacement - Follow Nurse / BPA Driven Protocol [Transfer Hold] dextrose [Transfer Hold] dextrose [Transfer Hold] glucagon (human recombinant) [Transfer Hold] Magnesium Standard Dose Replacement - Follow Nurse / BPA Driven Protocol [Transfer Hold] nitroglycerin nitroglycerin phenylephrine [Transfer Hold] Phosphorus Replacement - Follow Nurse / BPA Driven Protocol Potassium Replacement - Follow Nurse / BPA Driven Protocol [Transfer Hold] sodium chloride [Transfer Hold] sodium chloride Assessment & Plan Assessment & Plan Active Hospital Problems Diagnosis POA Stroke [I63.9] Yes Carotid artery stenosis [I65.29] Yes Diabetes [E11.9] Yes Hypertension [I10] Yes Hypercholesteremia [E78.00] Yes Resolved Hospital Problems No resolved problems to display. Brief Hospital Course to date: Derrick Roach is a 75 y.o. male w/ HTN, HLD, DM2, CAD, stroke w/ chronic LT weakness, carotid arterial disease, who presented to [facility] w/ acute expressive aphasia, he was loaded w/ ASA and Plavix and transferred to [facility] for stroke eval; MRI showed small areas of acute cortical infarct in the LT frotal and temporal lobes w/o hemorrhage Assessment/Plan Acute LT frontal and temporal lobe strokes Carotid arterial disease Hx RT hemispheric stroke, Hx TIA -ASA, plavix, statin -TTEw/ normal EF -CUS showed 50-69% LT ICA stenosis -PT/OT/[employer] -stroke neuro following, consulted NSGY and pt going for carotid stenting this AM CAD/HTN/HLD - asa, statin, permissive HTN DM2, A1c pending, w/o insulin use - SSI CKD3 - per report, labs pending Mycophenolate use - data deficit, Rx'ed by pulmonology, continued while here RA? Expected Discharge Location and Transportation: home pending stroke and NSGY recs VTE Prophylaxis: Mechanical VTE prophylaxis orders are present. AM-PAC 6 Clicks Score (PT): 17 (02/03/25 1109) CODE STATUS: Code Status and Medical Interventions: CPR (Attempt to Resuscitate); Full Support Ordered at: 02/02/252108 Code Status (Patient has no pulse and is not breathing): CPR (Attempt to Resuscitate) Medical Interventions (Patient has pulse or is breathing): Full Support Level Of Support Discussed With: Patient Ruddy Monteiro DO 02/04/25 * Ruddy Monteiro DO - 02/03/2025 9:24 AM EDT Images from the original note were not included. [facility] Medicine Services PROGRESS NOTE Patient Name: Derrick Roach : 1950 Date of Admission: 02/02/2025 Primary Care Physician: Janet Gardner APRN Subjective Subjective CC: F/u expressive aphasia HPI: Physically feels okay, cont to have some expressive aphasia. No other complaints, wants to leave the hospital as soon as reasonable Objective Objective Vital Signs: Temp: [98 ??F (36.7 ??C)-99 ??F (37.2 ??C)] 98.2 ??F (36.8 ??C) Heart Rate: [67-86] 86 Resp: [15-19] 16 BP: (108-167)/(67-93) 124/79 Physical Exam: Constitutional: Awake, alert, sitting up in bedside chair in NAD Respiratory: Clear to auscultation bilaterally, respiratory effort normal Cardiovascular: RRR, palpable radial pulse Gastrointestinal: Positive bowel sounds, soft, nontender, nondistended Psychiatric: Appropriate affect, cooperative Neurologic: Expressive aphasia, moving all extremities equally Results Reviewed: LAB RESULTS: Lab 02/03/25 1139 WBC 7.64 HEMOGLOBIN 12.4* HEMATOCRIT 40.3 PLATELETS 174 MCV 93.5 Lab 02/03/25 1139 SODIUM 137 POTASSIUM 4.8 CHLORIDE 102 CO2 23.5 ANION GAP 11.5 BUN 24.7* CREATININE 1.39* EGFR 53.5* GLUCOSE 90 CALCIUM 9.3 HEMOGLOBIN A1C 5.42 Lab 02/03/25 1139 TOTAL PROTEIN 7.1 ALBUMIN 3.8 GLOBULIN 3.3 ALT (SGPT) 10 AST (SGOT) 21 BILIRUBIN 0.3 ALK PHOS 86 Lab 02/03/25 1139 CHOLESTEROL 93 LDL CHOL 52 HDL CHOL 24* TRIGLYCERIDES 83 Brief Urine Lab Results None Microbiology Results Abnormal None Duplex Carotid Ultrasound CAR Result Date: 02/03/2025 Right internal carotid artery demonstrates a less than 50% stenosis. Antegrade right vertebral flow. Left internal carotid artery demonstrates a 50-69% stenosis. Antegrade left vertebral flow. MRI Brain Without Contrast Result Date: 02/03/2025 MRI BRAIN WO CONTRAST Date of Exam: 02/03/2025 3:25 AM EDT Indication: Stroke, follow up aphasia anddysarthria. Comparison: None available. Technique: Routine multiplanar/multisequence sequence images of the brain were obtained without contrast administration. Findings: Small areas of diffusion restriction are present consistent with acute infarct along cortical margins in the left frontal and superior temporal lobe. Mild associated edema is present, otherwise without significant mass effect. Midline structures appear normal and the craniocervical junction is satisfactory. Age-related changesare present with moderate generalized volume loss and typical T2 hyperintense subcortical and pontine white matter changes, nonspecific but favored to reflect sequela of chronic microvascular ischemia. There is no evidence of hemorrhage, mass or mass effect. The ventricles demonstrate ex vacuo prominence. The orbits are normal. There is evidence of chronic right maxillary sinusitis. Arterial flowvoids appear maintained. Impression: Impression: Small areas of acute cortical infarct are present within the left frontal and temporal lobes, without evidence of associated hemorrhage or significant mass effect. Otherwise moderate typical chronic and age-related findings are present. Electronically Signed: Jona Iniguez MD 02/03/2025 6:05 AM EDT Workstation ID: [id number] CT Outside Head Result Date: 02/02/2025 This procedure was auto-finalized with no dictation required. CT Outside Neck Result Date: 02/02/2025 This procedure was auto-finalized with no dictation required. CT Outside Head Result Date: 02/02/2025 This procedure was auto-finalized with no dictation required. I have personally reviewed the therapy plans: [] PT/OT/ ST Therapy Plans Current medications: Scheduled Meds:aspirin, 81 mg, Oral, Daily Or aspirin, 300 mg, Rectal, Daily atorvastatin, 80 mg, Oral, Nightly [Held by provider] bisoprolol, 2.5 mg, Oral, Daily clopidogrel, 75 mg, Oral, Daily insulin lispro, 2-7 Units, Subcutaneous, 4x Daily AC & at Bedtime [Held by provider] isosorbide mononitrate, 15 mg, Oral, Daily mycophenolate, 500 mg, Oral, BID sodium chloride, 10 mL, Intravenous, Q12H sodium chloride, 10 mL, Intravenous, Q12H Continuous Infusions: PRN Meds:. acetaminophen OR acetaminophen OR acetaminophen senna-docusate sodium AND polyethylene glycol AND bisacodyl AND bisacodyl Calcium Replacement - Follow Nurse / BPA Driven Protocol dextrose dextrose glucagon (human recombinant) Magnesium Standard Dose Replacement - Follow Nurse / BPA Driven Protocol nitroglycerin Phosphorus Replacement - Follow Nurse / BPA Driven Protocol Potassium Replacement - Follow Nurse / BPA Driven Protocol sodium chloride sodium chloride sodium chloride sodium chloride Assessment & Plan Assessment & Plan Active Hospital Problems Diagnosis POA Stroke [I63.9] Yes Carotid artery stenosis [I65.29] Yes Diabetes [E11.9] Yes Hypertension [I10] Yes Hypercholesteremia [E78.00] Yes Resolved Hospital Problems No resolved problems to display. Brief Hospital Course to date: Derrick Roach is a 75 y.o. male w/ HTN, HLD, DM2, CAD, stroke w/ chronic LT weakness, carotid arterial disease, who presented to [facility] w/ acute expressive aphasia, he was loaded w/ ASA and Plavix and transferred to [facility] for stroke eval; MRI showed small areas of acute cortical infarct in the LT frotal and temporal lobes w/o hemorrhage The following problems are new to me today Assessment/Plan Acute LT frontal and temporal lobe strokes Carotid arterial disease Hx RT hemispheric stroke, Hx TIA -ASA, plavix, statin -TTE and carotid US pending -PT/OT/[employer] -stroke neuro eval pending CAD/HTN/HLD - asa, statin, permissive HTN DM2, A1c pending, w/o insulin use - SSI CKD3 - per report, labs pending Mycophenolate use - data deficit, Rx'ed by pulmonology, continued while here RA? Expected Discharge Location and Transportation: home pending stroke neuro eval and recs VTE Prophylaxis: Mechanical VTE prophylaxis orders are present. AM-PAC 6 Clicks Score (PT): 17 (02/03/25 1109) CODE STATUS: Code Status and Medical Interventions: CPR (Attempt to Resuscitate); Full Support Ordered at: 02/02/252108 Code Status (Patient has no pulse and is not breathing): CPR (Attempt to Resuscitate) Medical Interventions (Patient has pulse or is breathing): Full Support Level Of Support Discussed With: Patient Ruddy Monteiro DO 02/03/25 * Karlo Lawrence MD - 02/03/2025 8:11 AM EDT Stroke Progress Note Chief Complaint: Speech difficulty Subjective Subjective Subjective: The patient is lying down in the bed in NAD. F patient's and son are at bedside. Patient is unable to articulate any questions at this time due to aphasia but appears to generally follow the conversation. Spoke with patient's son and at length answering all questions. No other acute complains at this time Objective Temp: [98 ??F (36.7 ??C)-99 ??F (37.2 ??C)] 98.9 ??F (37.2 ??C) Heart Rate: [67-81] 67 Resp: [15-19] 18 BP: (108-167)/(67-93) 117/81 Objective GEN: lying in bed; in NAD HENT: normocephalic, some crusted lesions on scalp NEURO: Patient is awake and alert. He is able to state his full name. He does have mixed aphasia with expressive aphasia being more pronounced. He is able to follow most simple commands but has trouble withcomplex tasks. He also approximates some simple commands. Pupils equal round and reactive to light. Visual phillips full. Extraocular eye movements intact. Sensation intact to light touch bilaterally in face. No obvious facial asymmetry. Protrudes midline. Patient is able to maintain all 4 extremities antigravity without drift. Strength is full to confrontational testing. Sensation to light touch appears to be intact throughout. There is some difficulty performing [id number] however this is due to aphasia and there is no clear ataxia. Reflexes and gait deferred Results Review: I reviewed the patient's new clinical results. WBC Date Value Ref Range Status 02/03/2025 7.64 3.40 - 10.80 10*3/mm3 Final RBC Date Value Ref Range Status 02/03/2025 4.31 4.14 - 5.80 10*6/mm3 Final Hemoglobin Date Value Ref Range Status 02/03/2025 12.4 (L) 13.0 - 17.7 g/dL Final Hematocrit Date Value Ref Range Status 02/03/2025 40.3 37.5 - 51.0 % Final MCV Date Value Ref Range Status 02/03/2025 93.5 79.0 - 97.0 fL Final MCH Date Value Ref Range Status 02/03/2025 28.8 26.6 - 33.0 pg Final MCHC Date Value Ref Range Status 02/03/2025 30.8 (L) 31.5 - 35.7 g/dL Final RDW Date Value Ref Range Status 02/03/2025 12.8 12.3 - 15.4 % Final RDW-SD Date Value Ref Range Status 02/03/2025 44.2 37.0 - 54.0 fl Final MPV Date Value Ref Range Status 02/03/2025 9.9 6.0 - 12.0 fL Final Platelets Date Value Ref Range Status 02/03/2025 174 140 - 450 10*3/mm3 Final Lab Results Component Value Date GLUCOSE 90 02/03/2025 BUN 24.7 (H) 02/03/2025 CREATININE 1.39 (H) 02/03/2025 NA 137 02/03/2025 K 4.8 02/03/2025 CL 102 02/03/2025 CALCIUM 9.3 02/03/2025 PROTEINTOT 7.1 02/03/2025 ALBUMIN 3.8 02/03/2025 ALT 10 02/03/2025 AST 21 02/03/2025 ALKPHOS 86 02/03/2025 BILITOT 0.3 02/03/2025 GLOB 3.3 02/03/2025 AGRATIO 1.2 02/03/2025 BCR 17.8 02/03/2025 ANIONGAP 11.5 02/03/2025 EGFR 53.5 (L) 02/03/2025 MRI Brain Without Contrast Result Date: 02/03/2025 Impression: Small areas of acute cortical infarct are present within the left frontal and temporal lobes, without evidence of associated hemorrhage or significant mass effect. Otherwise moderate typical chronic and age-related findings are present. 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 Given >4.5 hours from symptom onset he was not a candidate for IV thrombolytic therapy. Was not a candidate for thrombectomy due to absence of large vessel occlusion. Imaging personally reviewed. CT head with some chronic appearing infarcts. CTA with significant stenosis of the left ICA at the carotid bifurcation. Some mild atherosclerotic plaque at the right carotid bifurcation. There is additional calcified plaque in the bilateral distal ICAs. MRI showing acute infarct in the left frontotemporal lobes as well as diffuse chronic microvascular disease. Etiology of patient's stroke may be from significant stenosis of the left ICA at the carotid bifurcation. For now recommend dual antiplatelet therapy with aspirin and clopidogrel for for 90 days. Will ask our neurosurgical colleagues to evaluate for possible left carotid revascularization. Patient's LDL is currently 52 meeting goal of less than 70. He is okay to resume [employer] statin. Long-term bloodpressure goal is less than 130/80. Stroke service will continue to follow. Plan: -Continue dual antiplatelet therapy with aspirin 81 mg daily and clopidogrel 75 mg daily for 90 days, followed by aspirin 81 mg daily monotherapy thereafter - Okay to resume [employer] atorvastatin 10 mg daily -LDL currently 52 - LDL goal less than 70 -Long-term blood pressure goal less than 130/80 -Okay to slowly resume home blood pressure medications, avoiding hypotension -Echocardiogram pending -Carotid ultrasound pending -Neurosurgical consult for possible carotid revascularization Patient education for discharge: call 911 or present to emergency department with any stroke symptom, including unilateral face, arm, or leg weakness, numbness, or paresthesias, unilateral facial droop, speech deficits, dizziness with nausea, vomiting, nystagmus, and incoordination, visual deficits, or severe onset headache. Stroke will continue to follow. Please call for any further questions or concerns Karlo Lawrence MD Vascular Neurologist [facility] documented in this encounter H&P Notes * Beckie Hsu MD - 02/02/2025 7:09 PM EDT Images from the original note were not included. [facility] Medicine Services HISTORY AND PHYSICAL Patient Name: Derrick Roach : 1950 Primary Care Physician: Derrick Lang MD Date of admission: 02/02/2025 Subjective Subjective Chief Complaint: Aphasia and dysarthria HPI: Derrick Roach is a 75 y.o. male with known medical diagnoses of essential hypertension, hyperlipidemia, diabetes mellitus type 2, CAD, history of right hemispheric stroke (data deficient, reported residual left-sided weakness), and history of TIA who presented to [facility] today for further evaluation of speech difficulty which his noted at approximately 1200 today. Perreport when she left the house for work 0800 he was in his normal state of health and when she called him on her lunch break she noted that he had nonsensical speech. [facility] Stroke team was notified andrecommended loading with aspirin 325 mg and Plavix 300 mg prior to transfer as well as received a normal saline fluid bolus to achieve SBP >120. Patient was transferred to [facility] for higher level of care. Patient continues some aphasia. Still some difficulty with findings the right words. Denies N/V/F/C. at the bedside, permission obtained to discuss medical condition/status. Personal History Past Medical History: Diagnosis Date Anemia Carotid artery stenosis Coronary artery disease Diabetes mellitus Disease of thyroid gland Hypercholesterolemia Hypertension Osteoarthritis Renal disease Rheumatoid arthritis Stroke Thyroid disease TIA (transient ischemic attack) History reviewed. No pertinent surgical history. Family History: family history is not on file. Social History: reports that he has never smoked. He does not have any smokeless tobacco history onfile. He reports that he does not drink alcohol. Social History Social History Narrative Not on file Medications: Available home medication information reviewed. Aspirin, atorvastatin, bisoprolol, isosorbide mononitrate, metFORMIN, and mycophenolate No Known Allergies Objective Objective Vital Signs: Temp: [99 ??F (37.2 ??C)] 99 ??F (37.2 ??C) Heart Rate: [81] 81 Resp: [15] 15 BP: (167)/(93) 167/93 Total (NIH Stroke Scale): 2 Physical Exam Constitutional: male no acute distress, awake, alert HENT: NCAT, mucous membranes moist Respiratory: Clear to auscultation bilaterally, respiratory effort normal Cardiovascular: RRR, no murmurs, rubs, or gallops Gastrointestinal: Positive bowel sounds, soft, nontender, nondistended Musculoskeletal: No bilateral ankle edema Psychiatric: Appropriate affect, cooperative Neurologic: Oriented x 3, strength symmetric in all extremities, tongue midline, dysarthric speech Skin: No rashes, chronic scalp changes due to hx of skin cancer Result Review: I have personally reviewed the results from the time of this admission to 02/02/2025 22:29 EDT and agree with these findings: [x] Laboratory list / accordion [] Microbiology [x] Radiology [] EKG/Telemetry [] Cardiology/Vascular [] Pathology [] Old records [] Other: Microbiology Results (last 10 days) No results found for the last [address] Outside Head Result Date: 02/02/2025 This procedure was auto-finalized with no dictation required. CT Outside Neck Result Date: 02/02/2025 This procedure was auto-finalized with no dictation required. CT Outside Head Result Date: 02/02/2025 This procedure was auto-finalized with no dictation required. Assessment & Plan Assessment & Plan 75-year-old male with known medical diagnoses of essential hypertension, hyperlipidemia, diabetes mellitus type 2, CAD, history of right hemispheric stroke (data deficient, reported left residual weakness), and history of TIA who presented to [facility] today for further evaluation of speech difficulty which his noted at approximately 1200 today. Per report when she left the house for work 0800 he was in his normal state of health and when she called him on her lunch break she noted that he had nonsensical speech. Stroke team evaluated patient in the emergency department.Per their assessment, he is was not a candidate for IV thrombolytic therapy. CTA head/neck is negative for flow-limiting stenosis or LVO. He will be admitted to the hospital service for further workup. Mixed aphasia and dysarthria, etiology suspected TIA/CVA 2/2 symptomatic carotid stenosis History of right hemispheric stroke and history of TIA LICA stenosis -TIA/CVA order set without thrombolytic therapy has been initiated by stroke team -Disc from OSH has been taken to radiology to scanned into epic -MRI brain without contrast -TTE and CUS -A1c and lipid panel in AM -Meds: DAPT; loaded with ASA 325mg and Plavix 300mg [employer] -Activity as tolerated, fall risk precautions -PT/OT/[employer] evaluation Essential hypertension -Allow autoregulation of blood pressure for adequate cerebral blood flow -Nicardipine as needed for SBP >220 -Please keep SBP 130-200 overnight Hyperlipidemia -Lipid panel in AM -Atorvastatin 80mg nightly Diabetes Mellitus type 2 -A1c in AM - ISS and accuchecks VTE Prophylaxis: Mechanical VTE prophylaxis orders are present. CODE STATUS: Code Status and Medical Interventions: CPR (Attempt to Resuscitate); Full Support Ordered at: 02/02/25 5935 Code Status (Patient has no pulse and is not breathing): CPR (Attempt to Resuscitate) Medical Interventions (Patient has pulse or is breathing): Full Support Level Of Support Discussed With: Patient Expected Discharge Expected discharge date/ time has not been documented. eBckie Hsu MD 09/10/25 documented in this encounter Consult Notes * Ghanshyam Jung RN - 02/05/2025 4:05 PM EDT Patient d/c prior to education while admitted (d/c over the weekend). Will provided education at patients stroke/diabetes telehealth class. * Eloise Castillo RN - 02/04/2025 9:57 AM EDT Diabetes Education Patient Name: Derrick Roach Date of : 1950 Admit Date: 02/02/2025 Chart reviewed, noted per recent documentation pt confused. We will follow and attempt education asappropriate. Electronically signed by: Eloise Castillo RN 02/04/25 09:57 EDT * Maosn Desouza MD - 02/03/2025 4:19 PM EDT NEUROSURGERY CONSULTATION Referring Provider: Karlo Luke* Patient Care Team: Janet Gardner APRN as PCP - General (Internal Medicine) Teo Paez DO as Consulting Physician (Rheumatology) Francisco Alcantara APRN as Nurse Practitioner (Rheumatology) Chief Complaint: Stroke History of Present Illness: 75-year-old male with known medical diagnoses of essential hypertension, hyperlipidemia, diabetes mellitus type 2, CAD, history of right hemispheric stroke (data deficient, reported left residual weakness), and history of TIA who presented to [facility] today for further evaluation of speech difficulty which his noted at approximately 1200 yesterday He had a past medical history significant for stroke or is worked up at and he was treated nonprocedural he His reports most of the history secondary to aphasia and he reports modest improvement since admission Review of Systems: Musculoskeletal and Neurological systems were reviewed and are negative except for: Musculoskeletal: positive for muscle weakness. Neurological: positive for weakness. History: Past Medical History: Diagnosis Date Anemia Carotid artery stenosis Coronary artery disease Diabetes mellitus Disease of thyroid gland Hypercholesterolemia Hypertension Osteoarthritis Renal disease Rheumatoid arthritis Stroke Thyroid disease TIA (transient ischemic attack) , History reviewed. No pertinent surgical history., History reviewed. No pertinent family history., Social History Tobacco Use Smoking status: Never Vaping Use Vaping status: Never Used Substance Use Topics Alcohol use: Never , Medications Prior to Admission Medication Sig Dispense Refill Last Dose/Taking ASPIRIN 81 PO Take 1 tablet by mouth Daily. atorvastatin (LIPITOR) 10 MG tablet Take 1 tablet by mouth Daily. bisoprolol (ZEBeta) 5 MG tablet Take 0.5 tablets by mouth Daily. isosorbide mononitrate (IMDUR) 30 MG 24 hr tablet Take 0.5 tablets by mouth Daily. metFORMIN (GLUCOPHAGE) 1000 MG tablet Take 1 tablet by mouth 2 (Two) Times a Day With Meals. mycophenolate (CELLCEPT) 250 MG capsule Take 1 capsule by mouth 2 (Two) Times a Day. Allergies: Patient has no known allergies. Physical Exam: Vital Signs: Blood pressure 124/79, pulse 86, temperature 98.2 ??F (36.8 ??C), temperature source Oral, resp. rate 16, height 157.5 cm (62 ), weight 68 kg (150 lb), SpO2 95%. Vital signs were reviewed and documented in the chart Patient appeared in good neurologic function with normal comprehension he has very disfluent speech GCS is 14 Pupils symmetric equally reactive funduscopic exam not visualized Visual phillips intact to confrontation Extraocular movements intact Face motor function is symmetric he has significant dysarthria Facial sensations normal Hearing intact to finger rub hearing intact to finger rub Tongue is midline Palate symmetric Swallowing normal Shoulder shrug normal Slight motor drift on the right noted he can move his arms and legs symmetrically he has good pulses warm arms are warm and well-perfused Muscle bulk and tone normal Data Review: Personally viewed and interpreted both CAT scan, CTA head and neck as well as ultrasounds He is MRI shows restricted diffusion and 2 punctate areas consistent with atheroembolic stroke His left carotid shows a significant ulcerative plaque that is lipid-laden with high-grade stenosisthis is confirmed on ultrasonography his ratios approached 4 with a peak systolic velocity of near 300 Diagnosis: 1. High-grade left-sided symptomatic internal carotid artery stenosis at least 60% with severe ulceration and recent atheroembolic stroke to the left hemisphere 2. History of prior stroke 3. High surgical risk features for endarterectomy including dyspnea on exertion and undergoing current workup for stenting of a high risk lesion per his 's reports 4. Rather marked dysarthria Treatment Recommendations: Shared Decision Making A formal shared decision-making approach was used as we discussed the patient's treatment options for carotid artery stenosis. Treatment options including; carotid endarterectomy (CEA), carotid artery stenting (PRITESH), transcarotid artery revascularization (TCAR), and optimal medical therapy (OMT) were discussed. Risks and benefits of each treatment options were discussed. From a neurosurgical standpoint I think given the degree of the ulceration and the high risk surgical risk factors for endarterectomy only gets reasonable to defer anesthesia and perform diagnostic angiogram and carotid artery stenting Follow-up attempt is through a right radial approach and explained all the complication rates etc. Will make arrangements for this tomorrow Mason Desouza MD 02/03/25 16:20 EDT * Eloise Castillo RN - 02/03/2025 12:07 PM EDT Diabetes Education Patient Name: Derrick Roach Date of : 1950 Admit Date: 02/02/2025 Chart reviewed for diabetes ed, most recent documentation suggests pt confused/may not be appropriate for education today. We will follow. Please call [phone] for interval needs. Thank you. Electronically signed by: Eloise Castillo RN 02/03/25 12:07 EDT * Estrella Hsu APRN - 02/02/2025 6:26 PM EDT Stroke Consult Note Patient Name: Derrick Roach Age: 75 y.o. Sex: male : 1950 Primary Care Physician: No primary care provider on file. Referring Physician: Dr. Luke TIME STROKE TEAM CALLED: [id number] EST [facility] TIME PATIENT SEEN: 1829 EST Handedness: Right Race: Chief Complaint/Reason for Consultation: Aphasia and dysarthria HPI: Mr. Roach is a 75-year-old male with known medical diagnoses of essential hypertension, hyperlipidemia, diabetes mellitus type 2, CAD, history of right hemispheric stroke (data deficient, reported residual left-sided weakness), and history of TIA who presented to [facility] today for further evaluation of speech difficulty which his noted at approximately 1200 today. Per report when she left the house for work 0800 he was in his normal state of health and when she called him on her lunch break she noted that he had nonsensical speech. On arrival to the emergency department he was noted to have an NIHSS of 5 for dysarthria and aphasia (expressive and receptive). Blood pressure was noted to be 110/70 at time of acceptance. It was recommended that he be loaded with aspirin 325 mg and Plavix 300 mg prior to transfer as well as received a normal saline fluid bolusto achieve SBP >120. Prior to arrival patient was only on aspirin therapy. He is not on any anticoagulation. On arrival to our facility the patient continues to have mild expressive and receptive aphasia. He has no unilateral weakness, numbness, visual disturbance, or headache. Blood pressure on arrival to our facility is 167/93. Last Known Normal Date/Time: 0830 EST Review of Systems Unable to perform ROS: Other Aphasia Past Medical History: Diagnosis Date Anemia Carotid artery stenosis Coronary artery disease Diabetes mellitus Disease of thyroid gland Hypercholesterolemia Hypertension Osteoarthritis Renal disease Rheumatoid arthritis Stroke Thyroid disease TIA (transient ischemic attack) No past surgical history on file. No family history on file. Social History Socioeconomic History Marital status: Unknown Tobacco Use Smoking status: Never Substance and Sexual Activity Alcohol use: Never Not on File Prior to Admission medications Medication Sig Start Date End Date Taking? Authorizing Provider ASPIRIN 81 PO Take 1 tablet by mouth Daily. Rome Sutherland MD atorvastatin (LIPITOR) 10 MG tablet Take 1 tablet by mouth Daily. Rome Sutherland MD bisoprolol (ZEBeta) 5 MG tablet Take 0.5 tablets by mouth Daily. Rome Sutherland MD metFORMIN (GLUCOPHAGE) 1000 MG tablet Take 1 tablet by mouth 2 (Two) Times a Day With Meals. Provider, MD Rome BP: ()/() Arterial Line BP: ()/() Neurological Exam Mental Status Alert. Oriented only to person, place and time. Oriented to person, place, and time. Mild dysarthria present. Expressive aphasia and receptive aphasia present. Follows two-step commands. Cranial Nerves CN II: Visual phillips full to confrontation. CN III, IV, : Extraocular movements intact bilaterally. Pupils equal round and reactive to light bilaterally. CN V: Facial sensation is normal. CN VII: Full and symmetric facial movement. CN VIII: Hearing appears to be intact bilaterally. CN XII: Tongue midline without atrophy or fasciculations. Motor Normal muscle bulk throughout. Strength is 5/5 throughout all four extremities. Sensory Sensation is intact to light touch, pinprick, vibration and proprioception in all four extremities. Coordination No obvious dysmetria noted. Gait Not observed. Physical Exam Vitals and nursing note reviewed. Constitutional: General: He is not in acute distress. Appearance: Normal appearance. He is not ill-appearing. HENT: Head: Comments: Lesion on right side of head, appears to be skin cancer Mouth/Throat: Mouth: Mucous membranes are moist. Eyes: Extraocular Movements: Extraocular movements intact. Pupils: Pupils are equal, round, and reactive to light. Cardiovascular: Rate and Rhythm: Normal rate. Pulmonary: Effort: Pulmonary effort is normal. No respiratory distress. Comments: On room air Skin: General: Skin is warm and dry. Findings: Bruising present. Neurological: Mental Status: He is alert and oriented to person, place, and time. Cranial Nerves: Dysarthria present. No cranial nerve deficit. Sensory: No sensory deficit. Motor: Motor strength is normal.No weakness. Coordination: Coordination normal. Psychiatric: Mood and Affect: Mood normal. Behavior: Behavior normal. Acute Stroke Data Thrombolytic Inclusion / Exclusion Criteria Time: 14:31 EDT Person Administering Scale: Estrella Hsu APRN YES NO INCLUSION CRITERIA CLASS I [] [x] Suspected diagnosis of acute ischemic stroke with measureable neurological deficit. Low NIHSS with disabling stroke symptoms. [] [x] Onset of stroke symptoms < 3 hours before beginning treatment >/ 18 years old Stroke symptom onset = time patient was last seen well or without symptoms (LKW) [] [x] Onset of symptoms between 3-4.5 hours: >/= 80 years old (safe Class IIa) with history of both diabetes and prior CVA (reasonable Class IIb) AND NIHSS </= 25 *If not eligible for IV Thrombolytic consider neuro intervention for LKW within 24 hours YES NO EXCLUSION CRITERIA (CONTRAINDICATIONS) CLASS III EVIDENCE HARM [] [] Blood pressure >185/110 medically refractory to IV medications [] [] Active bleeding at a non-compressible site [] [] Active intracranial hemorrhage (ICH) [] [] Symptoms suggestive of subarachnoid hemorrhage (SAH) [] [] GI bleed within 21 days [] [] Ischemic stroke within 3 months [] [] Severe head trauma within 3 months [] [] Intracranial or intraspinal surgery within 3 months [] [] Current GI malignancy [] [] Intracranial neoplasm [] [] Infective endocarditis [] [] Aortic arch dissection [] [] Active coagulopathy with INR >1.7, platelets <100,000, PTT > 40 sec, PT > 15 sec *For warfarin, administration can begin before blood tests resulted. Discontinue for above values. [] [] Treatment dose* of LMWH (Lovenox) in last 24 hours *prophylactic dosages are not a contraindication [] [] Concurrent use of antiplatelet agents' glycoprotein inhibitors IIb/IIIa (Integrilin, etc.) [] [] Thrombin or factor Xa inhibitors (Eliquis, Xarelto, Arixtra) taken in last 48 hours YES NO CLASS II: AIS WITH THE FOLLOWING CONDITIONS - TREATMENT RISKS SHOULD BE WEIGHED AGAINST POSSIBLE BENEFITS. [] [] Major trauma in last 14 days, recent major surgery in last 14 days, intracranial arterial dissection, giant unruptured and unsecured intracranial aneurysm, pericarditis [] [] The risks, benefits, and alternatives have been discussed with the patient or family related to the administration of IV thrombolytic therapy for stroke symptoms. [] [] I have discussed and reviewed the patient's case and imaging with the attending prior to IV thrombolytic therapy. TIME N/A Time IV thrombolytic administered Hospital Meds: Scheduled- Infusions- No current facility-administered medications for this encounter. PRNs- Functional Status Prior to Current Stroke/Vanderbilt Score: 0 NIH Stroke Scale Time: 0 EST Person Administering Scale: Estrella Hsu, EXCELLENCE LEADER 1a Level of consciousness: 0=alert; keenly responsive 1b. LOC questions: 0=Answers both questions correctly 1c. LOC commands: 0=Performs both tasks correctly 2. Best Gaze: 0=normal 3. Visual: 0=No visual loss 4. Facial Palsy: 0=Normal symmetric movement 5a. Motor left arm: 0=No drift, limb holds 90 (or 45) degrees for full 10 seconds 5b. Motor right arm: 0=No drift, limb holds 90 (or 45) degrees for full 10 seconds 6a. motor left le=No drift, limb holds 90 (or 45) degrees for full 10 seconds 6b Motor right le=No drift, limb holds 90 (or 45) degrees for full 10 seconds 7. Limb Ataxia: 0=Absent 8. Sensory: 0=Normal; no sensory loss 9. Best Language: 1=Mild to moderate aphasia; some obvious loss of fluency or facility of comprehension without significant limitation on ideas expressed or form of expression. 10. Dysarthria: 1=Mild to moderate, patient slurs at least some words and at worst, can be understood with some difficulty 11. Extinction and Inattention: 0=No abnormality Total: 2 Results Reviewed: I have personally reviewed current lab, radiology, and data and agree with results. CT of the head without contrast (OSH, reviewed via [facility]) with chronic white matter disease, no evidence of hemorrhage. Questionable area of hypodensity in right basal ganglia, could represent chronic infarct. CTA head/neck (OSH, reviewed via [facility]) with bilateral carotid atherosclerotic disease (left > right) however no evidence of LVO. Labs from OSH WBC 8.0 H/H13.2/42.1 Platelets 197 Sodium 142 Creatinine 1.60, BUN 35 Glucose 126 AST 32 ALT 18 Assessment/Plan: This is a 75-year-old male with known medical diagnoses of essential hypertension, hyperlipidemia, diabetes mellitus type 2, CAD, history of right hemispheric stroke (data deficient, reported left residual weakness), and history of TIA who presented to [facility] today for further ev aluation of speech difficulty which his noted at approximately 1200 today. Per report when sheleft the house for work 0800 he was in his normal state of health and when she called him on her lunch break she noted that he had nonsensical speech. Given >4.5 hours he is not a candidate for IVthrombolytic therapy. CTA head/neck is negative for flow-limiting stenosis or LVO. He will be admitted to the hospital service for further workup. Antiplatelet [address] [employer] DEPUTY CLERK: ASA [address] DEPUTY CLERK: None Mixed aphasia and dysarthria, etiology suspected TIA/CVA 2/2 symptomatic carotid stenosis History of right hemispheric stroke and history of TIA LICA stenosis -TIA/CVA order set without thrombolytic therapy has been initiated -NPO until bedside nursing dysphagia screen completed -Disc from OSH has been taken to radiology to scanned into [facility] -MRI brain without contrast -TTE and CUS -A1c and lipid panel in AM -Meds: DAPT; loaded with ASA 325mg and Plavix 300mg [address] DEPUTY CLERK -Activity as tolerated, fall risk precautions -PT/OT/[employer] evaluation 2. Essential hypertension -Allow autoregulation of blood pressure for adequate cerebral blood flow -Nicardipine as needed for SBP >220 -Please keep SBP 130-200 overnight 3. Hyperlipidemia -Lipid panel in AM -Atorvastatin 80mg nightly 4. Diabetes Mellitus type 2 -A1c in AM -Maintain euglycemia -Management per primary team Plan of care was discussed with patient and primary RN. Also discussed with Dr. Jeb BALDERAS. Stroke neurology will continue to follow. Please call with any questions or concerns. Thank you for this consult. Estrella Hsu APRN February 02, 2025 14:31 EDT documented in this encounter Nursing Notes * Princess Carr, PT - 02/05/2025 10:22 AM EDT Goal Outcome Evaluation: Plan of Care Reviewed With: patient, family Progress: improving Outcome Evaluation: PT re-eval complete. Pt presents below baseline w/ balance deficits, cognitive impairments, generalized weakness, limited safety awareness, and decreased functional endurance warranting IPPT. Pt amb 60 ft w/ FWW CGA. PT rec 16/12 assist and OPPT at d/c. Anticipated Discharge Disposition (PT): home with 16/12 care, home with outpatient therapy services * Brittany Balderas, OT - 02/05/2025 10:20 AM EDT Goal Outcome Evaluation: Plan of Care Reviewed With: spouse, patient Progress: improving Outcome Evaluation: OT Re-eval complete. Pt presents w/ mild balance deficits and cognitive deficits warranting cont skilled IPOT POC to promote return to PLOF. Recommend pt DC home w/ 16/12 assist and OP OT/PT/[employer] services. Anticipated Discharge Disposition (OT): home with 16/12 care, home with outpatient therapy services * Janet Barnett RN - 02/05/2025 6:26 AM EDT Goal Outcome Evaluation: NIH 4. PRN Tylenol for neck pain. Head dressing changed. UOP 450mL. * Jessica Carver MS CCC-[employer] - 02/03/2025 4:29 PM EDT Goal Outcome Evaluation: Plan of Care Reviewed With: patient, family Anticipated Discharge Disposition ([employer]): inpatient rehabilitation facility [employer] Diagnosis: moderate, aphasia, mild, dysarthria (02/03/25 1125) * Rohini Lala PT - 02/03/2025 8:26 AM EDT Goal Outcome Evaluation: Plan of Care Reviewed With: spouse, patient Outcome Evaluation: PT PRESENTS LIKELY CLOSE TO BASELINE WITH FUNCTIONAL MOBILITY BUT WILL BENEFIT FROM INPT P.T. TO MITIGATE HOSPITAL ASSOCIATED WEAKNESS, IMPROVE SAFETY AND SEQUENCING WITH MOBILITY, AND DETERMINE APPROPRIATE A.D. FOR D/C. 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 HAD DIFFICULTY NEGOTIATING TURNS WITH REG R WALKER AND NOTED MILD R LEAN, BUMPING INTO OBJECTS ON R. PT IS COOPERATIVE BUT APHASIC AND HAS DIFFICULTY FOLLOWING MULTI-STEP COMMANDS. RECOMMEND HOME WITH FAMILY ASSIST AND HHPT AT D/C. Anticipated Discharge Disposition (PT): home with home health, home with assist * Junie Cardoso, OT Student - 02/03/2025 8:15 AM EDT Goal Outcome Evaluation: Plan of Care Reviewed With: (P) patient, spouse Outcome Evaluation: (P) Pt presents with deficits including remote L sided weakness, balance and following commands. Pt engaged in toileting tasks during evaluation and required v/c for safe placement and transfers. Pt may have R side visual deficits however was unable to follow commands, further testing may be beneficial. Pt would benefit from IP OT to address deficits, Recommend home with A [facility]. Anticipated Discharge Disposition (OT): (P) home with assist, home with home health Cosigned by Lola Jones OT at 02/03/2025 10:11 AM EDT Associated attestation - Lola Jones OT - 02/03/2025 10:11 AM EDT I attest, as a qualified practitioner, that I was present for the entire session of this patient's care without engagement in other tasks and that the student's participation was guided by my direction and skilled clinical judgement. Lola Jones OTR/L 02/03/25 10:11AM. * Saurabh Courtney RN - 02/03/2025 7:28 AM EDT Goal Outcome Evaluation: Plan of Care Reviewed With: spouse, patient No falls/injury this shift MRI completed. Echo & US carotid pending. documented in this encounter Miscellaneous Notes * Therapy Re-Evaluation - Brittany Balderas OT - 02/05/2025 1:47 PM EDT Images from the original note were not included. Patient Name: Derrick Roach : 1950 Today's Date: 02/05/2025 Admit Date: 02/02/2025 Visit Dx: ICD-10-CM ICD-9-CM 1. Stenosis of left carotid artery I65.22 433.10 2. Dysarthria R47.1 784.51 3. Aphasia R47.01 784.3 4. Cerebrovascular accident (CVA) due to bilateral stenosis of middle cerebral arteries I63.513 434.91 Patient Active Problem List Diagnosis Anemia Carotid artery stenosis Rheumatoid arthritis Encounter for long-term (current) use of high-risk medication Primary osteoarthritis involving multiple joints Current use of steroid medication CAD (coronary artery disease) Diabetes Hypertension Hypercholesteremia Stroke Renal disease Osteoarthritis Past Medical History: Diagnosis Date Anemia Carotid artery stenosis Coronary artery disease Diabetes mellitus Disease of thyroid gland Hypercholesterolemia Hypertension Osteoarthritis Renal disease Rheumatoid arthritis Stroke Thyroid disease TIA (transient ischemic attack) History reviewed. No pertinent surgical history. General Information Row Name 02/05/25 1339 OT Time and Intention Document Type re-evaluation Simultaneous filing. User may be unaware of other data. -CS Mode of Treatment occupational therapy Simultaneous filing. User may be unaware of other data. -CS Row Name 02/05/25 1330 General Information Patient Profile Reviewed yes Simultaneous filing. User may be unaware of other data. -CS Prior Level of Function -- see IE Simultaneous filing. User may be unaware of other data. -CS Existing Precautions/Restrictions fall;other (see comments) aphasia Simultaneous filing. User may be unaware of other data. -CS Barriers to Rehab medically complex;previous functional deficit Simultaneous filing. User may be unaware of other data. -CS Row Name 02/05/25 1336 Living Environment Current Living Arrangements -- see IE -CS Row Name 02/05/25 1331 Cognition Orientation Status (Cognition) oriented x 3;verbal cues/prompts needed for orientation;situation;time Simultaneous filing. User may be unaware of other data. -CS Row Name 02/05/25 1337 Safety Issues/Impairments Affecting Functional Mobility Impairments Affecting Function (Mobility) balance;endurance/activity tolerance;strength;cognition Simultaneous filing. User may be unaware of other data. -CS Cognitive Impairments, Mobility Safety/Performance attention;insight into deficits/self-awareness;sequencing abilities Simultaneous filing. User may be unaware of other data. -CS User Hinton (r) = Recorded By, (t) = Taken By, (c) = Cosigned By Initials Name Provider Type CS Balderas, Brittany, OT Occupational Therapist Mobility/ADL's Row Name 02/05/25 133 Bed Mobility Bed Mobility supine-sit - Supine-Sit [place] (Bed Mobility) contact guard;verbal cues -CS Assistive Device (Bed Mobility) bed rails;head of bed elevated -[facility] Name 02/05/251338 Transfers Transfers sit-stand transfer;stand-sit transfer;toilet transfer -[facility] Name 02/05/25 133 Sit-Stand Transfer Sit-Stand [place] (Transfers) contact guard;verbal cues -CS Assistive Device (Sit-Stand Transfers) walker, front-wheeled - Row Name 02/05/251338 Stand-Sit Transfer Stand-Sit [place] (Transfers) contact guard;verbal cues -CS Assistive Device (Stand-Sit Transfers) walker, front-wheeled -[facility] Name 02/05/251338 Toilet Transfer [place] Level (Toilet Transfer) contact guard;verbal cues -CS Assistive Device (Toilet Transfer) grab bars/safety frame;walker, front-wheeled -[facility] Name 02/05/251338 Functional Mobility Functional Mobility- Ind. Level contact guard assist;verbal cues required - Functional Mobility- Device walker, front-wheeled - Functional Mobility-Distance (Feet) -- to/from bathroom, functional household distance -[facility] Name 02/05/251338 Activities of Daily Living BADL Assessment/Intervention lower body dressing;toileting;grooming -[facility] Name 02/05/251338 Lower Body Dressing Assessment/Training [place] Level (Lower Body Dressing) don;doff;socks;set up - Position (Lower Body Dressing) edge of bed sitting -[facility] Name 02/05/251338 Toileting Assessment/Training [place] Level (Toileting) adjust/manage clothing;perform perineal hygiene;standby assist - Position (Toileting) supported sitting;supported standing -[facility] Name 02/05/251338 Grooming Assessment/Training [place] Level (Grooming) wash face, hands;standby assist - Position (Grooming) supported standing;sink side - User Hinton (r) = Recorded By, (t) = Taken By, (c) = Cosigned By Initials Name Provider Type Brittany Carrillo OT Occupational Therapist Obj/Interventions Row Name 02/05/25 1340 Sensory Assessment (Somatosensory) Sensory Assessment (Somatosensory) UE sensation intact -[facility] 02/05/25 134 Vision Assessment/Intervention Visual Impairment/Limitations WFL -[facility] 02/05/25 134 Range of Motion Comprehensive General Range of Motion bilateral upper extremity ROM WFL -[facility] 02/05/25 134 Strength Comprehensive (MMT) Comment, General Manual Muscle Testing (MMT) Assessment BUE grossly 3+/5 -CS [facility] 02/05/25 134 Motor Skills Motor Skills coordination - Coordination bilateral;upper extremity;finger to nose;WFL -CS [facility] Name 02/05/25 134 Balance Balance Assessment sitting static balance;sitting dynamic balance;standing static balance;standing dynamic balance - Static Sitting Balance standby assist - Dynamic Sitting Balance standby assist -CS Position, Sitting Balance sitting edge of bed -CS Static Standing Balance contact guard - Dynamic Standing Balance contact guard -CS Position/Device Used, Standing Balance walker, rolling -CS Balance Interventions sitting;standing;static;dynamic;dynamic reaching;occupation based/functional task;weight shifting activity - User Hinton (r) = Recorded By, (t) = Taken By, (c) = Cosigned By Initials Name Provider Type CS Brittany Balderas OT Occupational Therapist Goals/Plan [facility] 02/05/25 134 Transfer Goal 1 (OT) Progress/Outcome (Transfer Goal 1, OT) goal ongoing -[facility] 02/05/251341 Dressing Goal 1 (OT) Progress/Outcome (Dressing Goal 1, OT) goal partially met;good progress toward goal -[facility] 02/05/25 134 Therapy Assessment/Plan (OT) Planned Therapy Interventions (OT) activity tolerance training;adaptive equipment training;BADL retraining;functional balance retraining;ROM/therapeutic exercise;strengthening exercise;transfer/mobility retraining;patient/caregiver education/training;neuromuscular control/coordination retraining;cog nitive/visual perception retraining;occupation/activity based interventions - User Hinton (r) = Recorded By, (t) = Taken By, (c) = Cosigned By Initials Name Provider Type Brittany Carrillo OT Occupational Therapist Clinical Impression [facility] 02/05/25 1341 Pain Assessment Pretreatment Pain Rating 0/10 - no pain - Posttreatment Pain Rating 0/10 - no pain -CS Row Name 02/05/25 1341 Plan of Care Review Plan of Care Reviewed With spouse;patient -CS Progress improving -CS Outcome Evaluation OT Re-eval complete. Pt presents w/ mild balance deficits and cognitive deficitswarranting cont skilled IPOT POC to promote return to PLOF. Recommend pt DC home w/ 16/12 assist andOP OT/PT/[employer] services. -CS Row Name 02/05/25 134 Therapy Assessment/Plan (OT) Patient/Family Therapy Goal Statement (OT) Return to PLOF -CS Rehab Potential (OT) good -CS Criteria for Skilled Therapeutic Interventions Met (OT) yes;skilled treatment is necessary -CS Therapy Frequency (OT) daily -CS Predicted Duration of Therapy Intervention (OT) 10 days -CS Row Name 02/05/25 134 Therapy Plan Review/Discharge Plan (OT) Anticipated Discharge Disposition (OT) home with 16/12 care;home with outpatient therapy services -CS Row Name 02/05/25 1341 Vital Signs Pre Systolic BP Rehab 108 -CS Pre Treatment Diastolic BP 69 -CS Post Systolic BP Rehab 127 -CS Post Treatment Diastolic BP 66 -CS Pretreatment Heart Rate (beats/min) 66 -CS Posttreatment Heart Rate (beats/min) 62 -CS Pre SpO2 (%) 99 -CS O2 Delivery Pre Treatment room air -CS Post SpO2 (%) 98 -CS O2 Delivery Post Treatment room air -CS Pre Patient Position Supine -CS Intra Patient Position Standing -CS Post Patient Position Sitting -CS Row Name 02/05/25 1341 Positioning and Restraints Pre-Treatment Position in bed -CS Post Treatment Position chair -CS In Chair notified nsg;reclined;call light within reach;exit alarm on;RUE elevated;LUE elevated;withfamily/caregiver;waffle cushion;legs elevated -CS User Hinton (r) = Recorded By, (t) = Taken By, (c) = Cosigned By Initials Name Provider Type CS Brittany Balderas, OT Occupational Therapist Outcome Measures Row Name 02/05/25 1343 How much help from another is currently needed... Putting on and taking off regular lower body clothing? 3 -CS Bathing (including washing, rinsing, and drying) 2 -CS Toileting (which includes using toilet bed ross or urinal) 3 -CS Putting on and taking off regular upper body clothing 3 -CS Taking care of personal grooming (such as brushing teeth) 4 -CS Eating meals 4 -CS AM-PAC 6 Clicks Score (OT) 19 -CS Row Name 02/05/25 0800 How much help from another person do you currently need... Turning from your back to your side while in flat bed without using bedrails? 3 -WW Moving from lying on back to sitting on the side of a flat bed without bedrails? 3 -WW Moving to and from a bed to a chair (including a wheelchair)? 3 -WW Standing up from a chair using your arms (e.g., wheelchair, bedside chair)? 3 -WW Climbing 3-5 steps with a railing? 3 -WW To walk in hospital room? 3 -WW AM-PAC 6 Clicks Score (PT) 18 -WW Row Name 02/05/25 1343 Modified Aparna Scale Pre-Stroke Modified Vanderbilt Scale 6 - Unable to determine (UTD) from the medical record documentation -CS Modified Vanderbilt Scale 3 - Moderate disability. Requiring some help, but able to walk without assistance. -CS Row Name 02/05/25 1343 Functional Assessment Outcome Measure Options AM-PAC 6 Clicks Daily Activity (OT);Modified Aparna -CS User Hinton (r) = Recorded By, (t) = Taken By, (c) = Cosigned By Initials Name Provider Type CS Brittany Balderas OT Occupational Therapist WW Micky Fitch, RN Registered Nurse Occupational Therapy Education Title: PT OT [employer] Therapies (In Progress) Topic: Occupational Therapy (In Progress) Point: ADL training (Done) Learning Progress Summary Patient Acceptance, E, VU,NR by BT at 02/03/2025938 Significant Other Acceptance, E, VU,NR by BT at 02/03/2025938 Point: Body mechanics (Done) Learning Progress Summary Patient Acceptance, E, VU,NR by BT at 02/03/2025938 Significant Other Acceptance, E, VU,NR by BT at 02/03/2025938 User Hinton Initials Effective Dates Name Provider Type Discipline 01/07/25 - Junie Cardoso OT Student OT Student OT OT Recommendation and Plan Recommended discharge disposition is based on the functional assessment performed by PT/OT/Speech therapy (as applicable) and may not reflect the medical necessity determined by your provider or services covered by an individual patient's insurance plan or patient resource. Planned Therapy Interventions (OT): activity tolerance training, adaptive equipment training, BADL retraining, functional balance retraining, ROM/therapeutic exercise, strengthening exercise, transfer/mobility retraining, patient/caregiver education/training, neuromuscular control/coordination retra ining, cognitive/visual perception retraining, occupation/activity based interventions Therapy Frequency (OT): daily Plan of Care Review Plan of Care Reviewed With: spouse, patient Progress: improving Outcome Evaluation: OT Re-eval complete. Pt presents w/ mild balance deficits and cognitive deficits warranting cont skilled IPOT POC to promote return to PLOF. Recommend pt DC home w16/12 assist and OP OT/PT/[employer] services. Time Calculation: Time Calculation- OT Row Name 02/05/25 1343 Time Calculation- OT OT Start Time 1020 -CS OT Received On 02/05/25 -CS OT Goal Re-Cert Due Date 02/15/25 -CS Timed Charges 99863 - OT Therapeutic Activity Minutes 6 -CS 25123 - OT Self Care/Mgmt Minutes 6 -CS Untimed Charges OT Eval/Re-eval Minutes 20 -CS Total Minutes Timed Charges Total Minutes 12 -CS Untimed Charges Total Minutes 20 -CS Total Minutes 32 -CS User Hinton (r) = Recorded By, (t) = Taken By, (c) = Cosigned By Initials Name Provider Type CS Brittany Balderas OT Occupational Therapist Therapy Charges for Today Code Description Service Date Service Provider Modifiers Qty 11604939947 OT THERAPEUTIC ACT EA 15 MIN 02/05/2025 Brittany Balderas OT GO 1 [id number] HC OT RE-EVAL 2 02/05/2025 Brittany Balderas OT GO 1 Brittany Balderas OT 02/05/2025 * Therapy Re-Evaluation - Princess Carr, PT - 02/05/2025 10:22 AM EDT Images from the original note were not included. Patient Name: Derrick Roach : 1950 Today's Date: 02/05/2025 Admit Date: 02/02/2025 Visit Dx: ICD-10-CM ICD-9-CM 1. Stenosis of left carotid artery I65.22 433.10 2. Dysarthria R47.1 784.51 3. Aphasia R47.01 784.3 4. Cerebrovascular accident (CVA) due to bilateral stenosis of middle cerebral arteries I63.513 434.91 Patient Active Problem List Diagnosis Anemia Carotid artery stenosis Rheumatoid arthritis Encounter for long-term (current) use of high-risk medication Primary osteoarthritis involving multiple joints Current use of steroid medication CAD (coronary artery disease) Diabetes Hypertension Hypercholesteremia Stroke Renal disease Osteoarthritis Past Medical History: Diagnosis Date Anemia Carotid artery stenosis Coronary artery disease Diabetes mellitus Disease of thyroid gland Hypercholesterolemia Hypertension Osteoarthritis Renal disease Rheumatoid arthritis Stroke Thyroid disease TIA (transient ischemic attack) History reviewed. No pertinent surgical history. General Information Row Name 02/05/25 [facility] Physical Therapy Time and Intention Document Type re-evaluation -KE Mode of Treatment physical therapy;co-treatment -KE Row Name 02/05/25 [facility] General Information Patient Profile Reviewed yes -KE Prior Level of Function -- See PT IE -KE Existing Precautions/Restrictions fall;other (see comments) aphasia -KE Barriers to Rehab medically complex;previous functional deficit -KE Row Name 02/05/25 1353 Cognition Orientation Status (Cognition) oriented x 3;verbal cues/prompts needed for orientation;situation;time - Row Name 02/05/25 4853 02/05/25 1339 Safety Issues/Impairments Affecting Functional Mobility Safety Issues Affecting Function (Mobility) awareness of need for assistance;safety precaution awareness;safety precautions follow- through/compliance;insight into deficits/self-awareness -KE awareness of need for assistance;safety precaution awareness;safety precautions follow-through/compliance;insight into deficits/self-awareness;sequencing abilities;problem-solving -KE Impairments Affecting Function (Mobility) balance;endurance/activity tolerance;strength;cognition -KE -- Cognitive Impairments, Mobility Safety/Performance insight into deficits/self-awareness;problem-solving/reasoning;safety precaution awareness;safety precaution follow-through;awareness, need for assistance -KE -- Comment, Safety Issues/Impairments (Mobility) appropriately following commands w/ increased cues -KE appropriately following commands w/ increased cues -KE User Hinton (r) = Recorded By, (t) = Taken By, (c) = Cosigned By Initials Name Provider Type Princess Kumar, PT Physical Therapist Mobility Row Name 02/05/25 1354 Bed Mobility Bed Mobility supine-sit -KE Supine-Sit [place] (Bed Mobility) contact guard;verbal cues -KE Assistive Device (Bed Mobility) bed rails;head of bed elevated -KE Row Name 02/05/25 1354 Sit-Stand Transfer Sit-Stand [place] (Transfers) contact guard;verbal cues -KE Assistive Device (Sit-Stand Transfers) walker, front-wheeled -KE Comment, (Sit-Stand Transfer) x1 from EOB -KE Row Name 02/05/25 1354 Gait/Stairs (Locomotion) [place] Level (Gait) contact guard;1 person assist -KE Assistive Device (Gait) walker, front-wheeled -KE Patient was able to Ambulate yes -KE Distance in Feet (Gait) 60 -KE Deviations/Abnormal Patterns (Gait) gait speed decreased;rachel decreased;stride length decreased;weight shifting decreased;bilateral deviations -KE Bilateral Gait Deviations forward flexed posture;heel strike decreased -KE Right Sided Gait Deviations leans right -KE Comment, (Gait/Stairs) Demo step through gait pattern with R lean, slowed pace, and fwd flexed posture. VCs for improved management of AD. pt w/ mild unsteadiness however no overt LOB. Further mobility limited by fatigue. -KE User Hinton (r) = Recorded By, (t) = Taken By, (c) = Cosigned By Initials Name Provider Type Princess Kumar, PT Physical Therapist Obj/Interventions Row Name 02/05/25 1354 Range of Motion Comprehensive General Range of Motion bilateral lower extremity ROM WFL -KE Row Name 02/05/25 1350 Strength Comprehensive (MMT) General Manual Muscle Testing (MMT) Assessment lower extremity strength deficits identified -KE Comment, General Manual Muscle Testing (MMT) Assessment B LE grossly 4/5 -KE Row Name 02/05/25 1354 Motor Skills Motor Skills coordination -KE Coordination heel to shaffer;WFL;other (see comments) assessment limited by command following -KE Row Name 02/05/25 1359 Balance Balance Assessment sitting static balance;sitting dynamic balance;standing static balance;standing dynamic balance -KE Static Sitting Balance standby assist -KE Dynamic Sitting Balance standby assist -KE Position, Sitting Balance sitting edge of bed -KE Static Standing Balance contact guard -KE Dynamic Standing Balance contact guard -KE Position/Device Used, Standing Balance walker, front-wheeled -KE Balance Interventions sitting;standing;sit to stand;supported;static;dynamic -KE Comment, Balance mild unsteadiness w/ no overt LOB -KE Row Name 02/05/25 1355 Sensory Assessment (Somatosensory) Sensory Assessment (Somatosensory) LE sensation intact -KE User Hinton (r) = Recorded By, (t) = Taken By, (c) = Cosigned By Initials Name Provider Type Princess Kumar, PT Physical Therapist Goals/Plan Row Name 02/05/25 1400 Bed Mobility Goal 1 (PT) Activity/Assistive Device (Bed Mobility Goal 1, PT) sit to supine/supine to sit -KE [place] Level/Cues Needed (Bed Mobility Goal 1, PT) independent -KE Time Frame (Bed Mobility Goal 1, PT) short term goal (STG);5 days -KE Progress/Outcomes (Bed Mobility Goal 1, PT) goal ongoing - Row Name 02/05/25 1400 Transfer Goal 1 (PT) Activity/Assistive Device (Transfer Goal 1, PT) [id number];walker, rolling -KE [place] Level/Cues Needed (Transfer Goal 1, PT) standby assist -KE Time Frame (Transfer Goal 1, PT) intermediate project manager goal (LTG);10 days -KE Progress/Outcome (Transfer Goal 1, PT) goal ongoing - Row Name 02/05/25 1400 Gait Training Goal 1 (PT) Activity/Assistive Device (Gait Training Goal 1, PT) gait (walking locomotion);walker, rolling -KE [place] Level (Gait Training Goal 1, PT) contact guard required -KE Distance (Gait Training Goal 1, PT) 300 -KE Time Frame (Gait Training Goal 1, PT) intermediate project manager goal (LTG);10 days -KE Progress/Outcome (Gait Training Goal 1, PT) goal ongoing - Row Name 02/05/25 1400 Stairs Goal 1 (PT) Activity/Assistive Device (Stairs Goal 1, PT) descending stairs;ascending stairs;using handrail, left;using handrail, right -KE [place] Level/Cues Needed (Stairs Goal 1, PT) contact guard required -KE Number of Stairs (Stairs Goal 1, PT) 2 -KE Time Frame (Stairs Goal 1, PT) intermediate project manager goal (LTG);10 days -KE Progress/Outcome (Stairs Goal 1, PT) goal ongoing -[facility] Name 02/05/25 1400 Therapy Assessment/Plan (PT) Planned Therapy Interventions (PT) balance training;bed mobility training;gait training;home exercise program;neuromuscular re-education;postural re- education;patient/family education;transfer trainin g;stretching;strengthening;stair training;ROM (range of motion) - User Hinton (r) = Recorded By, (t) = Taken By, (c) = Cosigned By Initials Name Provider Type Princess Kumar, PT Physical Therapist Clinical Impression [facility] 02/05/25 1357 Pain Pretreatment Pain Rating 0/10 - no pain - Posttreatment Pain Rating 0/10 - no pain -[facility] 02/05/25 135 Plan of Care Review Plan of Care Reviewed With patient;family - Progress improving - Outcome Evaluation PT re-eval complete. Pt presents below baseline w/ balance deficits, cognitive impairments, generalized weakness, limited safety awareness, and decreased functional endurance warranting IPPT. Pt amb 60 ft w/ FWW CGA. PT rec / assist and OPPT at d/c. -[facility] 02/05/25 135 Therapy Assessment/Plan (PT) Rehab Potential (PT) good -KE Criteria for Skilled Interventions Met (PT) yes;meets criteria;skilled treatment is necessary -KE Therapy Frequency (PT) daily -KE Predicted Duration of Therapy Intervention (PT) 10 days -[facility] 02/05/25 1357 Vital Signs Pre Systolic BP Rehab 108 -KE Pre Treatment Diastolic BP 69 -KE Post Systolic BP Rehab 127 -KE Post Treatment Diastolic BP 66 -KE Pretreatment Heart Rate (beats/min) 66 -KE Posttreatment Heart Rate (beats/min) 62 -KE Pre SpO2 (%) 98 -KE O2 Delivery Pre Treatment room air -KE O2 Delivery Intra Treatment room air -KE Post SpO2 (%) 99 -KE O2 Delivery Post Treatment room air -KE Pre Patient Position Supine -KE Intra Patient Position Standing -KE Post Patient Position Sitting -[facility] 02/05/25 1357 Positioning and Restraints Pre-Treatment Position in bed -KE Post Treatment Position chair -KE In Chair notified nsg;reclined;waffle cushion;call light within reach;encouraged to call for assist;exit alarm on;with family/caregiver;legs elevated - User Hinton (r) = Recorded By, (t) = Taken By, (c) = Cosigned By Initials Name Provider Type Princess Kumar, PT Physical Therapist Outcome Measures Row Name 02/05/25 1401 02/05/25 0800 How much help from another person do you currently need... Turning from your back to your side while in flat bed without using bedrails? 4 -KE 3 -WW Moving from lying on back to sitting on the side of a flat bed without bedrails? 3 -KE 3 -WW Moving to and from a bed to a chair (including a wheelchair)? 3 -KE 3 -WW Standing up from a chair using your arms (e.g., wheelchair, bedside chair)? 3 - KE 3 -WW Climbing 3-5 steps with a railing? 3 -KE 3 -WW To walk in hospital room? 3 -KE 3 -WW AM-PAC 6 Clicks Score (PT) 19 -KE 18 -WW Highest Level of Mobility Goal Walk 10 Steps or More-6 -KE Walk 10 Steps or More-6 -WW Row Name 02/05/25 1401 02/05/25 1343 Modified Aparna Scale Pre-Stroke Modified Vanderbilt Scale 6 - Unable to determine (UTD) from the medical record documentation -KE 6 - Unable to determine (UTD) from the medical record documentation -CS Modified Aparna Scale 3 - Moderate disability. Requiring some help, but able to walk without assistance. -KE 3 - Moderate disability. Requiring some help, but able to walk without assistance. -CS Row Name 02/05/25 1401 02/05/25 1343 Functional Assessment Outcome Measure Options AM-PAC 6 Clicks Basic Mobility (PT);Modified Vanderbilt -KE AM-PAC 6 Clicks Daily Activity (OT);Modified Vanderbilt -CS User Hinton (r) = Recorded By, (t) = Taken By, (c) = Cosigned By Initials Name Provider Type Brittany Carrillo OT Occupational Therapist Princess Kumar, PT Physical Therapist Micky Sierra, RN Registered Nurse Physical Therapy Education Title: PT OT [employer] Therapies (In Progress) Topic: Physical Therapy (Done) Point: Mobility training (Done) Learning Progress Summary Patient Acceptance, E, VU by BRYAN at 02/05/2025 1401 Acceptance, E,D, VU,NR by MELISSA at 02/03/20251108 Comment: BENEFITS OF OOB ACTIVITY, SAFETY WITH MOBILITY, PROGRESSION OF POC, D/C PLANNING, GAIT TRAINING WITH R WALKER. Significant Other Acceptance, E,D, VU,NR by CD at 02/03/20251108 Comment: BENEFITS OF OOB ACTIVITY, SAFETY WITH MOBILITY, PROGRESSION OF POC, D/C PLANNING, GAIT TRAINING WITH R WALKER. Point: Home exercise program (Done) Learning Progress Summary Patient Acceptance, E, VU by BRYAN at 02/05/2025 1401 Acceptance, E,D, VU,NR by CD at 02/03/20251108 Comment: BENEFITS OF OOB ACTIVITY, SAFETY WITH MOBILITY, PROGRESSION OF POC, D/C PLANNING, GAIT TRAINING WITH R WALKER. Significant Other Acceptance, E,D, VU,NR by CD at 02/03/20251108 Comment: BENEFITS OF OOB ACTIVITY, SAFETY WITH MOBILITY, PROGRESSION OF POC, D/C PLANNING, GAIT TRAINING WITH R WALKER. Point: Body mechanics (Done) Learning Progress Summary Patient Acceptance, E, VU by BRYAN at 02/05/2025 1401 Acceptance, E,D, VU,NR by CD at 02/03/20251108 Comment: BENEFITS OF OOB ACTIVITY, SAFETY WITH MOBILITY, PROGRESSION OF POC, D/C PLANNING, GAIT TRAINING WITH R WALKER. Significant Other Acceptance, E,D, VU,NR by CD at 02/03/20251108 Comment: BENEFITS OF OOB ACTIVITY, SAFETY WITH MOBILITY, PROGRESSION OF POC, D/C PLANNING, GAIT TRAINING WITH R WALKER. Point: Precautions (Done) Learning Progress Summary Patient Acceptance, E, VU by BRYAN at 02/05/2025 1401 Acceptance, E,D, VU,NR by CD at 02/03/20251108 Comment: BENEFITS OF OOB ACTIVITY, SAFETY WITH MOBILITY, PROGRESSION OF POC, D/C PLANNING, GAIT TRAINING WITH R WALKER. Significant Other Acceptance, E,D, VU,NR by CD at 02/03/20251108 Comment: BENEFITS OF OOB ACTIVITY, SAFETY WITH MOBILITY, PROGRESSION OF POC, D/C PLANNING, GAIT TRAINING WITH R WALKER. User Hinton Initials Effective Dates Name Provider Type Discipline CD 06/28/22 - Rohini Lala PT Physical Therapist PT BRYAN 04/10/23 - Princess Carr, PT Physical Therapist PT PT Recommendation and Plan Recommended discharge disposition is based on the functional assessment performed by PT/OT/Speech therapy (as applicable) and may not reflect the medical necessity determined by your provider or services covered by an individual patient's insurance plan or patient resource. Planned Therapy Interventions (PT): balance training, bed mobility training, gait training, home exercise program, neuromuscular re-education, postural re- education, patient/family education, transfer training, stretching, strengthening, stair training, ROM (range of motion) Therapy Frequency (PT): daily Progress: improving Outcome Evaluation: PT re-eval complete. Pt presents below baseline w/ balance deficits, cognitive impairments, generalized weakness, limited safety awareness, and decreased functional endurance warranting IPPT. Pt amb 60 ft w/ FWW CGA. PT rec 16/12 assist and OPPT at d/c. Time Calculation: PT Evaluation Complexity Examination of Body Systems (PT Eval Complexity): total of 3 or more elements Clinical Presentation (PT Evaluation Complexity): evolving Clinical Decision Making (PT Evaluation Complexity): moderate complexity PT Charges Row Name 02/05/25 1402 Time Calculation Start Time 1022 -KE PT Received On 02/05/25 -KE PT Goal Re-Cert Due Date 02/15/25 -KE Timed Charges 12985 - Gait Training Minutes 13 -KE Untimed Charges PT Eval/Re-eval Minutes 30 -KE Total Minutes Timed Charges Total Minutes 13 -KE Untimed Charges Total Minutes 30 -KE Total Minutes 43 -KE User Hinton (r) = Recorded By, (t) = Taken By, (c) = Cosigned By Initials Name Provider Type Princess Kumar PT Physical Therapist Therapy Charges for Today Code Description Service Date Service Provider Modifiers Qty [id number] GAIT TRAINING EA 15 MIN 02/05/2025 Princess Carr, PT GP 1 [id number] PT RE-EVAL ESTABLISHED PLAN 2 02/05/2025 Princess Carr PT GP 1 PT G-Codes Outcome Measure Options: AM-PAC 6 Clicks Basic Mobility (PT), Modified Vanderbilt AM-PAC 6 Clicks Score (PT): 19 AM-PAC 6 Clicks Score (OT): 19 Modified Vanderbilt Scale: 3 - Moderate disability. Requiring some help, but able to walk without assistance. PT Discharge Summary Anticipated Discharge Disposition (PT): home with 16/12 care, home with outpatient therapy services Princess Carr, REE 02/05/2025 * Therapy Evaluation - Jessica Carver, MS CCC-[employer] - 02/03/2025 4:28 PM EDT Images from the original note were not included. Acute Care - Speech Language Pathology Initial Evaluation and Treatment Note [facility] Cognitive-Communication Evaluation + treatment Patient Name: Derrick Roach : 1950 Today's Date: 02/03/2025 Admit Date: 02/02/2025 Visit Dx: ICD-10-CM ICD-9-CM 1. Stenosis of left carotid artery I65.22 433.10 2. Dysarthria R47.1 784.51 3. Aphasia R47.01 784.3 Patient Active Problem List Diagnosis Anemia Carotid artery stenosis Rheumatoid arthritis Encounter for long-term (current) use of high-risk medication Primary osteoarthritis involving multiple joints Current use of steroid medication CAD (coronary artery disease) Diabetes Hypertension Hypercholesteremia Stroke Renal disease Osteoarthritis Past Medical History: Diagnosis Date Anemia Carotid artery stenosis Coronary artery disease Diabetes mellitus Disease of thyroid gland Hypercholesterolemia Hypertension Osteoarthritis Renal disease Rheumatoid arthritis Stroke Thyroid disease TIA (transient ischemic attack) History reviewed. No pertinent surgical history. [employer] Recommendation and Plan Recommended discharge disposition is based on the functional assessment performed by PT/OT/Speech therapy (as applicable) and may not reflect the medical necessity determined by your provider or services covered by an individual patient's insurance plan or patient resource. [employer] Diagnosis: moderate, aphasia, mild, dysarthria (02/03/251124) [facility] Criteria for Skilled Therapy Interventions Met: yes (02/03/251124) Anticipated Discharge Disposition ([employer]): inpatient rehabilitation facility (02/03/251124) Therapy Frequency ([employer] [facility]): 5 days per week (02/03/251124) Predicted Duration Therapy Intervention (Days): 2 weeks (02/03/251124) [employer] EVALUATION (Last 72 Hours) [employer] [facility] Evaluation Row Name 02/03/251124 Communication Assessment/Intervention Document Type evaluation -CH Subjective Information no complaints - Patient Observations alert;cooperative;agree to therapy - Patient/Family/Caregiver Comments/Observations family present - Patient Effort good - Symptoms Noted During/After Treatment none - General Information Patient Profile Reviewed yes - Pertinent History Of Current Problem Hx Right CVA, TIA. Admitted with speech and word finding difficulty. MRI: acute cortical infarct, left frontal and temporal lobes, carotid stenosis - Precautions/Limitations, Vision WFL;for purposes of eval - Precautions/Limitations, Hearing WFL;for purposes of eval - Prior Level of Function-Communication WF - Plans/Goals Discussed with patient and family;agreed upon - Barriers to Rehab none identified - Patient's Goals for Discharge patient did not state - Family Goals for Discharge functional communication - Pain Pretreatment Pain Rating 0/10 - no pain - Posttreatment Pain Rating 0/10 - no pain - Comprehension Assessment/Intervention Comprehension Assessment/Intervention Auditory Comprehension;Reading Comprehension - Auditory Comprehension Assessment/Intervention Auditory Comprehension (Communication) mild impairment - Able to Identify Objects/Pictures (Communication) familiar objects;mild impairment - Able to Follow Commands (Communication) 1-step;2-step;mild impairment - Narrative Discourse unable/difficult to assess - Successful Auditory Strategies (Communication) repetition;visual cues - Reading Comprehension Assessment/Intervention Scanning (Reading) phrases;sentences;WFL - Visual Matching Ability (Reading) picture/word;WFL - Single Word Level WFL - Phrase Level [facility] - Expression Assessment/Intervention Expression Assessment/Intervention verbal expression - Verbal Expression Assessment/Intervention Verbal Expression moderate impairment - Automatic Speech (Communication) counting 1-20;WFL;days of week;mild impairment - Repetition words;mild impairment -CH Phrase Completion automatic/predictable;mild impairment - Responsive Naming simple;mild impairment - Confrontational Naming high frequency;mild impairment - Spontaneous/Functional Words simple;WFL - Sentence Formulation severe impairment - Conversational Discourse/Fluency unable/difficult to assess - Oral Motor Structure and Function Oral Motor Structure and Function mild impairment - Oral Musculature and Cranial Nerve Assessment Oral Motor General Assessment generalized oral motor weakness - Motor Speech Assessment/Intervention Motor Speech Function mild impairment - Characteristics Consistent with Dysarthria decreased articulation - Verbal Repetition (Communication) phrases;WFL - Speech intelligibility 80%;in quiet environment;with unfamiliar listener - Cursory Voice Assessment/Intervention Quality and Resonance (Voice) WFL - Augmentative/Alternative Communication Gestures (Alternative Communication) facial affect;head nod;head shake - Cognitive Assessment Intervention- [employer] Cognitive Function (Cognition) unable/difficult to assess;other (see comments) d/t severity of language deficits - Orientation Status (Cognition) person;place;unable/difficult to assess;other (see comments) d/t language impairment - Memory (Cognitive) unable/difficult to assess - Attention (Cognitive) selective;sustained;mild impairment - Thought Organization (Cognitive) unable/difficult to assess - Pragmatics (Communication) affect;eye contact - [employer] Evaluation Clinical Impressions [employer] Diagnosis moderate;aphasia;mild;dysarthria - Rehab Potential/Prognosis good - [facility] Criteria for Skilled Therapy Interventions Met yes - Functional Impact functional impact in social situations;functional impact in ADLs;difficulty communicating wants, needs - Recommendations Therapy Frequency ([employer] SLC) 5 days per week - Predicted Duration Therapy Intervention (Days) 2 weeks - Anticipated Discharge Disposition ([employer]) inpatient rehabilitation facility - User Hinton (r) = Recorded By, (t) = Taken By, (c) = Cosigned By Initials Name Effective Dates Jessica Carver MS [facility] [facility] 06/14/24 - EDUCATION The patient has been educated in the following areas: Cognitive Impairment Communication Impairment. [employer] GOALS Row Name 02/03/25 1125 Patient will demonstrate functional speech skills for return to discharge environment [place] with minimal cues - Time frame Other (comment) 2 weeks - Progress/Outcomes continuing progress toward goal - Patient will demonstrate functional language skills for return to discharge environment [place] with minimal cues - Time frame 2 weeks -CH Progress/Outcomes continuing progress toward goal - Follow Directions Goal 2 ([facility]) Improve Ability to Follow Directions Goal 1 ([employer]) 2 step commands;90%;with minimal cues (75-90%) - Time Frame (Follow Directions Goal 1, [facility]) 1 week -CH Progress (Ability to Follow Directions Goal 1, [employer]) 50%;with minimal cues (75- 90%) - Progress/Outcomes (Follow Directions Goal 1, [facility]) continuing progress toward goal - Word Retrieval Skills Goal 1 ([facility]) Improve Word Retrieval Skills By Goal 1 ([facility]) high frequency;confrontational naming task;responsivenaming task;completing open ended structured sentence;80%;with minimal cues (75-90%) -CH Time Frame (Word Retrieval Goal 1, [employer]) 1 week -CH Progress (Word Retrieval Skills Goal 1, [employer]) 60%;with minimal cues (75-90%) -CH Progress/Outcomes (Word Retrieval Goal 1, [facility]) continuing progress toward goal -CH Ability to Construct Phrase and Sentence Level Response Goal 1 ([employer]) Improve Ability to Construct Phrase and Sentence Level Responses By Goal 1 ([employer]) answering questionwith phrase;80%;with minimal cues (75-90%) -CH Time Frame (Phrase and Sentence Level Response Goal 1, [employer]) 1 week -CH Progress (Construct Phrase and Sentence Level Response Goal 1, [employer]) 30%;with minimal cues (75-90%) -CH Progress/Outcomes (Phrase and Sentence Level Response Goal 1, [employer]) continuing progress toward goal -CH Articulation Goal 1 ([employer]) Improve Articulation Goal 1 ([employer]) by over-articulating at word level;80%;with minimal cues (75-90%)-CH Time Frame (Articulation Goal 1, [employer]) 1 week -CH Progress/Outcomes (Articulation Goal 1, [employer]) goal ongoing -CH User Hinton (r) = Recorded By, (t) = Taken By, (c) = Cosigned By Initials Name Provider Type Jessica Granado MS [facility] Speech and Language Pathologist Time Calculation: Time Calculation- [employer] Row Name 02/03/25 1626 Time Calculation- [employer] Start Time 1125 -CH [facility] Received On 02/03/25 -CH Untimed Charges [employer] Eval/Re-eval ST Eval Speech and Production w/ Language - 87935 -CH 07035-EP Eval Speech and Production w/ Language Minutes 55 -CH 50619-US Treatment/ST Modification Prosth Dec -CH Total Minutes Untimed Charges Total Minutes 80 -CH Total Minutes 80 -CH User Hinton (r) = Recorded By, (t) = Taken By, (c) = Cosigned By Initials Name Provider Type Jessica Granado MS [facility] [employer] [facility] Speech and Language Pathologist Therapy Charges for Today Code Description Service Date Service Provider Modifiers Qty [id number] HC ST EVAL SPEECH AND PROD W LANG 4 02/03/2025 Jessica Carver MS [facility] [employer] GN 1 [id number] [facility] TREATMENT SPEECH 2 02/03/2025 Jessica Carver MS [facility] [employer] GN 1 Jessica Carver MS [facility] 02/03/2025 * Case Management/Social Work - Marlene Ramos RN - 02/03/2025 12:41 PM EDT Images from the original note were not included. Discharge Planning Assessment [facility] Patient Name: Derrick Roach Today's Date: 02/03/2025 Admit Date: 02/02/2025 Plan: IDP Discharge Needs Assessment Row Name 02/03/25 1234 Living Environment People in Home spouse Name(s) of People in Home Abida Current Living Arrangements home Potentially Unsafe Housing Conditions unable to assess In the past 12 months has the electric, gas, oil, or water company threatened to shut off services in your home? No Primary Care Provided by self Provides Primary Care For no one Family Caregiver if Needed spouse Family Caregiver Names Marlyn Quality of Family Relationships supportive;involved;helpful Able to Return to Prior Arrangements yes Resource/Environmental Concerns Resource/Environmental Concerns none Transportation Concerns none Transportation Needs In the past 12 months, has lack of transportation kept you from medical appointments or from getting medications? no In the past 12 months, has lack of transportation kept you from meetings, work, or from getting things needed for daily living? No Food Insecurity Within the past 12 months, you worried that your food would run out before you got the money to buymore. Never true Within the past 12 months, the food you bought just didn't last and you didn't have money to get more. Never true Transition Planning Patient/Family Anticipates Transition to home with family Patient/Family Anticipated Services at Transition none Transportation Anticipated family or friend will provide Discharge Needs Assessment Readmission Within the Last 30 Days no previous admission in last 30 days Equipment Currently Used at Home shower chair;walker, standard;rollator Concerns to be Addressed no discharge needs identified;denies needs/concerns at this time Do you want help finding or keeping work or a job? I do not need or want help Do you want help with school or training? For example, starting or completing job training or getting a high school diploma, GED or equivalent No Anticipated Changes Related to Illness none Equipment Needed After Discharge none Discharge Plan Row Name 02/03/25 1235 Plan Plan IDP Patient/Family in Agreement with Plan yes Plan Comments Spoke with spouse at bed bedside with patient present but having speech difficulty. They live in [facility] with house with steps in. Has rollator and sc. Not current with HH/OPPT but agreeable. Therapy recs for HH with [facility] able to accept for SN/PT/OT/[employer]. PCP updated in [facility] Jacob Gardner. Medicare A&B and AARP with scripts filled at [facility]. CM will cont to follow. Final Discharge Disposition Code 06 - home with home health care Continued Care and Services - Admitted Since 02/02/2025 Home Medical Care Coordination complete. Service Provider Request Status Services Address Phone Fax Patient Preferred [facility] - [facility] [address], [place] [address] [phone] -- Demographic Summary Row Name 02/03/25 1233 General Information Admission Type observation Arrived From home Referral Source admission list Reason for Consult decision-making;discharge planning Preferred Language [place]ralt[place] Functional Status Row Name 02/03/25 1234 Functional Status Usual Activity Tolerance moderate Current Activity Tolerance moderate Physical Activity On average, how many days per week do you engage in moderate to strenuous exercise (like a brisk walk)? 0 days On average, how many minutes do you engage in exercise at this level? 0 min Number of minutes of exercise per week 0 Functional Status, IADL Medications independent Meal Preparation independent Housekeeping independent Laundry assistive person Shopping assistive person Psychosocial No documentation. Abuse/Neglect No documentation. Legal No documentation. Substance Abuse No documentation. Patient Forms No documentation. Marlene Ramos RN * Therapy Evaluation - Rohini Lala PT - 02/03/2025 8:26 AM EDT Images from the original note were not included. Patient Name: Derrick Roach : 1950 Today's Date: 02/03/2025 Admit Date: 02/02/2025 Visit Dx: No diagnosis found. Patient Active Problem List Diagnosis Anemia Carotid artery stenosis Rheumatoid arthritis Encounter for long-term (current) use of high-risk medication Primary osteoarthritis involving multiple joints Current use of steroid medication CAD (coronary artery disease) Diabetes Hypertension Hypercholesteremia Stroke Renal disease TIA (transient ischemic attack) Osteoarthritis Past Medical History: Diagnosis Date Anemia Carotid artery stenosis Coronary artery disease Diabetes mellitus Disease of thyroid gland Hypercholesterolemia Hypertension Osteoarthritis Renal disease Rheumatoid arthritis Stroke Thyroid disease TIA (transient ischemic attack) History reviewed. No pertinent surgical history. General Information Row Name 02/03/25 1050 Physical Therapy Time and Intention Document Type evaluation -CD Mode of Treatment physical therapy;co-treatment -CD Row Name 02/03/25 1050 General Information Patient Profile Reviewed yes -CD Prior Level of Function independent:;all household mobility;community mobility;ADL's;feeding;grooming;dressing;home management;driving USES ROLLATOR AND SHOWER CHAIR AT BASELINE. DRIVES SHORT DISTANCES ON OCCASION. DENIES RECENT FALLS. ( ASSISTED IN PLOF INFO DUE TO PT APHASIC) -CD Existing Precautions/Restrictions fall -CD Barriers to Rehab previous functional deficit;medically complex -CD Row Name 02/03/25 1050 Living Environment Current Living Arrangements home -CD People in Home spouse -CD Row Name 02/03/25 1050 Home Main Entrance Number of Stairs, Main Entrance two -CD Stair Railings, Main Entrance railings on both sides of stairs -CD Row Name 02/03/25 1050 Stairs Within Home, Primary Number of Stairs, Within Home, Primary none -CD Row Name 02/03/25 1050 Cognition Orientation Status (Cognition) oriented x 4;verbal cues/prompts needed for orientation WITH CHOICES, PT ORIENTED. ACCURATE WITH YES/NO. NOTED DIFFICULTY FOLLOWING COMMANDS AND PT APHASIC. -CD Row Name 02/03/25 1050 Safety Issues/Impairments Affecting Functional Mobility Safety Issues Affecting Function (Mobility) ability to follow commands;at risk behavior observed;insight into deficits/self-awareness;safety precaution awareness;safety precautions follow-through/compliance;sequencing abilities;positioning of assistive device -CD Impairments Affecting Function (Mobility) balance;endurance/activity tolerance;strength;cognition -CD Cognitive Impairments, Mobility Safety/Performance awareness, need for assistance;insight into deficits/self-awareness;problem-solving/reasoning;safety precaution awareness;safety precaution follow-through;sequencing abilities -CD Comment, Safety Issues/Impairments (Mobility) PT NEEDS CUES FOR SEQUENCING MOBILITY AND SAFETY AWARENESS. -CD User Hinton (r) = Recorded By, (t) = Taken By, (c) = Cosigned By Initials Name Provider Type Rohini Sparks, PT Physical Therapist Mobility Row Name 02/03/25 1056 Bed Mobility Bed Mobility supine-sit -CD Supine-Sit [place] (Bed Mobility) contact guard -CD Assistive Device (Bed Mobility) bed rails;head of bed elevated -CD Comment, (Bed Mobility) INCREASED TIME AND EFFORT. -CD Row Name 02/03/25 1056 Transfers Comment, (Transfers) CUES FOR HAND PLACEMENT. STS FROM EOB . -CD Row Name 02/03/25 1056 Sit-Stand Transfer Sit-Stand [place] (Transfers) contact guard;verbal cues -CD Assistive Device (Sit-Stand Transfers) walker, front-wheeled -CD Row Name 02/03/25 1056 Gait/Stairs (Locomotion) [place] Level (Gait) minimum assist (75% patient effort) -CD Assistive Device (Gait) walker, front-wheeled -CD Distance in Feet (Gait) 140 -CD Deviations/Abnormal Patterns (Gait) gait speed decreased;rachel decreased;stride length decreased;weight shifting decreased -CD Bilateral Gait Deviations forward flexed posture;heel strike decreased -CD Comment, (Gait/Stairs) PT NORMALLY USES ROLLATOR. HAD DIFFICULTY NEGOTIATING TURNS WITH REG R WALKER AND NOTED MILD R LEAN, BUMPING INTO OBJECTS ON R. -CD User Hinton (r) = Recorded By, (t) = Taken By, (c) = Cosigned By Initials Name Provider Type Rohini Sparks PT Physical Therapist Obj/Interventions Row Name 02/03/25 1058 Range of Motion Comprehensive General Range of Motion bilateral lower extremity ROM WFL -CD Row Name 02/03/25 1058 Strength Comprehensive (MMT) General Manual Muscle Testing (MMT) Assessment lower extremity strength deficits identified -CD Comment, General Manual Muscle Testing (MMT) Assessment B LE GROSSLY 3+TO 4/5 AND SYMMETRICAL, NO OVERT BUCKLING WITH GAIT. UNABLE TO FOLLOW COMMANDS FOR MMT. -CD Row Name 02/03/25 1058 Motor Skills Motor Skills functional endurance -CD Functional Endurance AMBULATED ON RA. NO SIGNIFICANT SOA. O2 SENSOR NOT REGISTERING SATS. NSG NOTIFIED. -CD Row Name 02/03/25 1058 Balance Balance Assessment sitting static balance;sitting dynamic balance;standing static balance;standing dynamic balance -CD Static Sitting Balance standby assist -CD Dynamic Sitting Balance contact guard -CD Position, Sitting Balance unsupported;sitting edge of bed -CD Static Standing Balance contact guard -CD Dynamic Standing Balance minimal assist -CD Position/Device Used, Standing Balance walker, rolling -CD Balance Interventions sitting;standing;sit to stand;supported;static;dynamic;weight shifting activity -CD Comment, Balance NO OVERT LOB WITH GAIT IN HUYNH USING R WALKER BUT UNSTEADY AND REQUIRING ASSIST FOR SAFETY. -CD Row Name 02/03/25 1058 Sensory Assessment (Somatosensory) Sensory Assessment (Somatosensory) bilateral LE -CD Bilateral LE Sensory Assessment intact;light touch awareness -CD User Hinton (r) = Recorded By, (t) = Taken By, (c) = Cosigned By Initials Name Provider Type CD Rohini Lala, PT Physical Therapist Goals/Plan Row Name 02/03/25 1108 Bed Mobility Goal 1 (PT) Activity/Assistive Device (Bed Mobility Goal 1, PT) sit to supine/supine to sit -CD [place] Level/Cues Needed (Bed Mobility Goal 1, PT) independent -CD Time Frame (Bed Mobility Goal 1, PT) short term goal (STG);5 days -CD Row Name 02/03/25 110 Transfer Goal 1 (PT) Activity/Assistive Device (Transfer Goal 1, PT) [id number];walker, rolling -CD [place] Level/Cues Needed (Transfer Goal 1, PT) standby assist -CD Time Frame (Transfer Goal 1, PT) chcf goal (LTG);10 days -CD Row Name 02/03/25 110 Gait Training Goal 1 (PT) Activity/Assistive Device (Gait Training Goal 1, PT) gait (walking locomotion);walker, rolling -CD [place] Level (Gait Training Goal 1, PT) contact guard required -CD Distance (Gait Training Goal 1, PT) 300 -CD Time Frame (Gait Training Goal 1, PT) intermediate project manager goal (LTG);10 days -CD Row Name 02/03/25 110 Stairs Goal 1 (PT) Activity/Assistive Device (Stairs Goal 1, PT) descending stairs;ascending stairs;using handrail, left;using handrail, right -CD [place] Level/Cues Needed (Stairs Goal 1, PT) contact guard required -CD Number of Stairs (Stairs Goal 1, PT) 2 -CD Time Frame (Stairs Goal 1, PT) chcf goal (LTG);10 days -CD Row Name 02/03/25 1108 Therapy Assessment/Plan (PT) Planned Therapy Interventions (PT) balance training;bed mobility training;gait training;home exercise program;neuromuscular re-education;patient/family education;ROM (range of motion);stair training;strengthening;transfer training -CD User Hinton (r) = Recorded By, (t) = Taken By, (c) = Cosigned By Initials Name Provider Type CD Rohini Lala, PT Physical Therapist Clinical Impression Row Name 02/03/25 1103 Pain Pretreatment Pain Rating 0/10 - no pain -CD Posttreatment Pain Rating 0/10 - no pain -CD Row Name 02/03/25 1103 Plan of Care Review Plan of Care Reviewed With spouse;patient -CD Outcome Evaluation PT PRESENTS LIKELY CLOSE TO BASELINE WITH FUNCTIONAL MOBILITY BUT WILL BENEFIT FROM INPT P.T. TO MITIGATE HOSPITAL ASSOCIATED WEAKNESS, IMPROVE SAFETY AND SEQUENCING WITH MOBILITY,AND DETERMINE APPROPRIATE A.D. FOR D/C. 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 HAD DIFFICULTY NEGOTIATING TURNS WITH REG R WALKER AND NOTED MILD R LEAN, BUMPING INTO OBJECTS ON R. PT IS COOPERATIVE BUT APHASIC AND HAS DIFFICULTY FOLLOWING MULTI-STEP COMMANDS. RECOMMEND HOME WITH FAMILY ASSIST AND HHPT AT D/C. -CD Row Name 02/03/25 1103 Therapy Assessment/Plan (PT) Patient/Family Therapy Goals Statement (PT) TO GO HOME. -CD Rehab Potential (PT) good -CD Criteria for Skilled Interventions Met (PT) yes;meets criteria;skilled treatment is necessary -CD Therapy Frequency (PT) daily -CD Row Name 02/03/25 1103 Vital Signs Pre Systolic BP Rehab 108 -CD Pre Treatment Diastolic BP 72 -CD Post Systolic BP Rehab 125 -CD Post Treatment Diastolic BP 71 -CD Pretreatment Heart Rate (beats/min) 95 -CD Posttreatment Heart Rate (beats/min) 94 -CD O2 Delivery Pre Treatment room air -CD O2 Delivery Intra Treatment room air -CD O2 Delivery Post Treatment room air -CD Pre Patient Position Supine -CD Intra Patient Position Standing -CD Post Patient Position Sitting -CD Row Name 02/03/25 110 Positioning and Restraints Pre-Treatment Position in bed -CD Post Treatment Position chair -CD In Chair reclined;call light within reach;encouraged to call for assist;notified nsg;exit alarm on;with family/caregiver;waffle cushion -CD User Hinton (r) = Recorded By, (t) = Taken By, (c) = Cosigned By Initials Name Provider Type CD Rohini Lala, PT Physical Therapist Outcome Measures Row Name 02/03/25 11002/03/25 0000 How much help from another person do you currently need... Turning from your back to your side while in flat bed without using bedrails? 3 -CD 3 -TS Moving from lying on back to sitting on the side of a flat bed without bedrails? 3 -CD 3 -TS Moving to and from a bed to a chair (including a wheelchair)? 3 -CD 3 -TS Standing up from a chair using your arms (e.g., wheelchair, bedside chair)? 3 - CD 3 -TS Climbing 3-5 steps with a railing? 2 -CD 2 -TS To walk in hospital room? 3 -CD 3 -TS AM-PAC 6 Clicks Score (PT) 17 -CD 17 -TS Row Name 02/03/25110802/03/25 09 Modified Vanderbilt Scale Pre-Stroke Modified Vanderbilt Scale -- 6 - Unable to determine (UTD) from the medical record documentation -MR (r) BT (t) MR (c) Modified Vanderbilt Scale 3 - Moderate disability. Requiring some help, but able to walk without assistance. -CD 2 - Slight disability. Unable to carry out all previous activities but able to look after own affairs without assistance. -MR (r) BT (t) MR (c) Row Name 02/03/25 0938 Functional Assessment Outcome Measure Options AM-PAC 6 Clicks Daily Activity (OT);Modified Aparna -MR (r) BT (t) MR (c) User Hinton (r) = Recorded By, (t) = Taken By, (c) = Cosigned By Initials Name Provider Type CD Rohini Lala, PT Physical Therapist Lola Chisholm, OT Occupational Therapist TS Saurabh Courtney, SHIRLEY Registered Nurse Junie Davis, OT Student OT Student Physical Therapy Education Title: PT OT [employer] Therapies (In Progress) Topic: Physical Therapy (Done) Point: Mobility training (Done) Learning Progress Summary Patient Acceptance, E,D, VU,NR by CD at 02/03/20251108 Comment: BENEFITS OF OOB ACTIVITY, SAFETY WITH MOBILITY, PROGRESSION OF POC, D/C PLANNING, GAIT TRAINING WITH R WALKER. Significant Other Acceptance, E,D, VU,NR by CD at 02/03/20251108 Comment: BENEFITS OF OOB ACTIVITY, SAFETY WITH MOBILITY, PROGRESSION OF POC, D/C PLANNING, GAIT TRAINING WITH R WALKER. Point: Home exercise program (Done) Learning Progress Summary Patient Acceptance, E,D, VU,NR by CD at 02/03/20251108 Comment: BENEFITS OF OOB ACTIVITY, SAFETY WITH MOBILITY, PROGRESSION OF POC, D/C PLANNING, GAIT TRAINING WITH R WALKER. Significant Other Acceptance, E,D, VU,NR by CD at 02/03/20251108 Comment: BENEFITS OF OOB ACTIVITY, SAFETY WITH MOBILITY, PROGRESSION OF POC, D/C PLANNING, GAIT TRAINING WITH R WALKER. Point: Body mechanics (Done) Learning Progress Summary Patient Acceptance, E,D, VU,NR by CD at 02/03/20251108 Comment: BENEFITS OF OOB ACTIVITY, SAFETY WITH MOBILITY, PROGRESSION OF POC, D/C PLANNING, GAIT TRAINING WITH R WALKER. Significant Other Acceptance, E,D, VU,NR by CD at 02/03/20251108 Comment: BENEFITS OF OOB ACTIVITY, SAFETY WITH MOBILITY, PROGRESSION OF POC, D/C PLANNING, GAIT TRAINING WITH R WALKER. Point: Precautions (Done) Learning Progress Summary Patient Acceptance, E,D, VU,NR by CD at 02/03/20251108 Comment: BENEFITS OF OOB ACTIVITY, SAFETY WITH MOBILITY, PROGRESSION OF POC, D/C PLANNING, GAIT TRAINING WITH R WALKER. Significant Other Acceptance, E,D, VU,NR by CD at 02/03/20251108 Comment: BENEFITS OF OOB ACTIVITY, SAFETY WITH MOBILITY, PROGRESSION OF POC, D/C PLANNING, GAIT TRAINING WITH R WALKER. User Hinton Initials Effective Dates Name Provider Type Discipline CD 06/28/22 - Rohini Lala PT Physical Therapist PT PT Recommendation and Plan Recommended discharge disposition is based on the functional assessment performed by PT/OT/Speech therapy (as applicable) and may not reflect the medical necessity determined by your provider or services covered by an individual patient's insurance plan or patient resource. Planned Therapy Interventions (PT): balance training, bed mobility training, gait training, home exercise program, neuromuscular re-education, patient/family education, ROM (range of motion), stair training, strengthening, transfer training Therapy Frequency (PT): daily Outcome Evaluation: PT PRESENTS LIKELY CLOSE TO BASELINE WITH FUNCTIONAL MOBILITY BUT WILL BENEFIT FROM INPT P.T. TO MITIGATE HOSPITAL ASSOCIATED WEAKNESS, IMPROVE SAFETY AND SEQUENCING WITH MOBILITY, AND DETERMINE APPROPRIATE A.D. FOR D/C. 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 HAD DIFFICULTY NEGOTIATING TURNS WITH REG R WALKER AND NOTED MILD R LEAN, BUMPING INTO OBJECTS ON R. PT IS COOPERATIVE BUT APHASIC AND HAS DIFFICULTY FOLLOWING MULTI-STEP COMMANDS. RECOMMEND HOME WITH FAMILY ASSIST AND HHPT AT D/C. Time Calculation: PT Charges Row Name 02/03/25 1111 Time Calculation Start Time 0826 -CD PT Received On 02/03/25 -CD Timed Charges 80292 - Gait Training Minutes 8 -CD Untimed Charges PT Eval/Re-eval Minutes 55 -CD Total Minutes Timed Charges Total Minutes 8 -CD Untimed Charges Total Minutes 55 -CD Total Minutes 63 -CD User Hinton (r) = Recorded By, (t) = Taken By, (c) = Cosigned By Initials Name Provider Type CD Rohini Lala PT Physical Therapist Therapy Charges for Today Code Description Service Date Service Provider Modifiers Qty [id number] HC GAIT TRAINING EA 15 MIN 02/03/2025 Rohini Lala, PT GP 1 [id number] PT EVAL LOW COMPLEXITY 4 02/03/2025 Rohini Lala, PT GP 1 PT G-Codes Outcome Measure Options: AM-PAC 6 Clicks Daily Activity (OT), Modified Aparna AM-PAC 6 Clicks Score (PT): 17 AM-PAC 6 Clicks Score (OT): 17 Modified Vanderbilt Scale: 3 - Moderate disability. Requiring some help, but able to walk without assistance. PT Discharge Summary Anticipated Discharge Disposition (PT): home with home health, home with assist Rohini Lala PT 02/03/2025 * Therapy Evaluation - Junie Cardoso, OT Student - 02/03/2025 8:15 AM EDT Images from the original note were not included. Patient Name: Derrick Roach : 1950 Today's Date: 02/03/2025 Admit Date: 02/02/2025 Visit Dx: No diagnosis found. Patient Active Problem List Diagnosis Anemia Carotid artery stenosis Rheumatoid arthritis Encounter for long-term (current) use of high-risk medication Primary osteoarthritis involving multiple joints Current use of steroid medication CAD (coronary artery disease) Diabetes Hypertension Hypercholesteremia Stroke Renal disease TIA (transient ischemic attack) Osteoarthritis Past Medical History: Diagnosis Date Anemia Carotid artery stenosis Coronary artery disease Diabetes mellitus Disease of thyroid gland Hypercholesterolemia Hypertension Osteoarthritis Renal disease Rheumatoid arthritis Stroke Thyroid disease TIA (transient ischemic attack) History reviewed. No pertinent surgical history. General Information Row Name 02/03/25901 OT Time and Intention Subjective Information no complaints (P) -BT Document Type evaluation (P) -BT Mode of Treatment occupational therapy;physical therapy;co-treatment (P) -BT Row Name 02/03/25901 General Information Prior Level of Function independent:;community mobility;bed mobility;ADL's;feeding;grooming;dressing;bathing;home management;driving (P) -BT Existing Precautions/Restrictions fall (P) -BT Barriers to Rehab previous functional deficit (P) -BT Row Name 02/03/25901 Living Environment Current Living Arrangements home (P) -BT People in Home spouse (P) -BT Row Name 02/03/25901 Home Main Entrance Number of Stairs, Main Entrance two (P) -BT Stair Railings, Main Entrance railings on both sides of stairs (P) -BT Row Name 02/03/25901 Stairs Within Home, Primary Number of Stairs, Within Home, Primary none (P) -BT Row Name 02/03/25901 Cognition Orientation Status (Cognition) oriented x 4 (P) -BT Row Name 02/03/25901 Safety Issues/Impairments Affecting Functional Mobility Safety Issues Affecting Function (Mobility) ability to follow commands;at risk behavior observed;awareness of need for assistance;insight into deficits/self- awareness;positioning of assistive device;sequencing abilities (P) -BT Impairments Affecting Function (Mobility) balance;endurance/activity tolerance;grasp;visual/perceptual (P) -BT User Hinton (r) = Recorded By, (t) = Taken By, (c) = Cosigned By Initials Name Provider Type BT Junie Cardoso, OT Student OT Student Mobility/ADL's Row Name 02/03/25904 Bed Mobility Bed Mobility supine-sit (P) -BT Supine-Sit [place] (Bed Mobility) contact guard (P) -BT Assistive Device (Bed Mobility) bed rails;head of bed elevated (P) -BT Row Name 02/03/25904 Transfers Transfers sit-stand transfer;stand-sit transfer (P) -BT Row Name 02/03/25904 Sit-Stand Transfer Sit-Stand [place] (Transfers) contact guard;verbal cues (P) -BT Assistive Device (Sit-Stand Transfers) walker, front-wheeled (P) -BT Row Name 02/03/25904 Stand-Sit Transfer Stand-Sit [place] (Transfers) contact guard;verbal cues (P) -BT Assistive Device (Stand-Sit Transfers) walker, front-wheeled (P) -BT Row Name 02/03/25904 Functional Mobility Functional Mobility- Ind. Level contact guard assist;verbal cues required (P) -BT Functional Mobility- Device walker, front-wheeled (P) -BT Functional Mobility-Distance (Feet) -- (P) >40 ft -BT Functional Mobility- Comment Pt needed cueing for safe placement for hand and walker placement. (P)-BT Row Name 02/03/25904 Activities of Daily Living BADL Assessment/Intervention upper body dressing;lower body dressing;toileting (P) -BT Row Name 02/03/25904 Upper Body Dressing Assessment/Training [place] Level (Upper Body Dressing) don;pajama/robe;minimum assist (75% patient effort) (P) -BT Position (Upper Body Dressing) edge of bed sitting (P) -BT Row Name 02/03/25904 Lower Body Dressing Assessment/Training [place] Level (Lower Body Dressing) don;socks;dependent (less than 25% patient effort) (P) -BT Position (Lower Body Dressing) sitting up in bed (P) -BT Row Name 02/03/25904 Toileting Assessment/Training [place] Level (Toileting) verbal cues;minimum assist (75% patient effort) (P) -BT Assistive Devices (Toileting) commode (P) -BT Position (Toileting) supported standing (P) -BT User Hinton (r) = Recorded By, (t) = Taken By, (c) = Cosigned By Initials Name Provider Type BT Junie Cardoso, OT Student OT Student Obj/Interventions Row Name 02/03/25911 Sensory Assessment (Somatosensory) Sensory Assessment (Somatosensory) UE sensation intact (P) -BT Row Name 02/03/25911 Range of Motion Comprehensive General Range of Motion bilateral upper extremity ROM WFL (P) -BT Row Name 02/03/25911 Strength Comprehensive (MMT) General Manual Muscle Testing (MMT) Assessment upper extremity strength deficits identified (P) -BT Comment, General Manual Muscle Testing (MMT) Assessment Hand MMT grossly 3/5 (P) -BT Row Name 02/03/25911 Upper Extremity (Manual Muscle Testing) Upper Extremity: Manual Muscle Testing (MMT) left shoulder strength deficit;right shoulder strengthdeficit (P) -BT Comment, MMT: Upper Extremity LUE 3/5 and RUE 4-/5 (P) -BT Row Name 02/03/25911 Balance Balance Assessment sitting static balance;sitting dynamic balance;standing static balance;standing dynamic balance (P) -BT Static Sitting Balance standby assist (P) -BT Dynamic Sitting Balance contact guard (P) -BT Position, Sitting Balance unsupported;sitting edge of bed (P) -BT Static Standing Balance contact guard (P) -BT Dynamic Standing Balance contact guard (P) -BT Position/Device Used, Standing Balance walker, front-wheeled (P) -BT User Hinton (r) = Recorded By, (t) = Taken By, (c) = Cosigned By Initials Name Provider Type BT Junie Cardoso, OT Student OT Student Goals/Plan Row Name 02/03/25935 Transfer Goal 1 (OT) Activity/Assistive Device (Transfer Goal 1, OT) oll-ug-tjosk/[id number]-ye-ulo;toilet;walker, rolling (P) -BT [place] Level/Cues Needed (Transfer Goal 1, OT) standby assist (P) -BT Time Frame (Transfer Goal 1, OT) short term goal (STG);5 days (P) -BT Progress/Outcome (Transfer Goal 1, OT) new goal (P) -BT Row Name 02/03/25935 Dressing Goal 1 (OT) Activity/Device (Dressing Goal 1, OT) lower body dressing;sagger preparer;sock-aid;long-handled shoe horn (P) -BT [place]/Cues Needed (Dressing Goal 1, OT) minimum assist (75% or more patient effort) (P) -BT Time Frame (Dressing Goal 1, OT) intermediate project manager goal (LTG);10 days (P) -BT Progress/Outcome (Dressing Goal 1, OT) new goal (P) -BT Row Name 02/03/25935 Therapy Assessment/Plan (OT) Planned Therapy Interventions (OT) activity tolerance training;adaptive equipment training;BADL retraining;functional balance retraining;IADL retraining;passive ROM/stretching;patient/caregiver educat ion/training;ROM/therapeutic exercise;strengthening exercise;transfer/mobility retraining;occupation/activity based interventions (P) -BT User Hinton (r) = Recorded By, (t) = Taken By, (c) = Cosigned By Initials Name Provider Type BT Junie Cardoso, OT Student OT Student Clinical Impression Row Name 02/03/25921 Pain Assessment Pretreatment Pain Rating 0/10 - no pain (P) -BT Posttreatment Pain Rating 0/10 - no pain (P) -BT Row Name 02/03/25921 Plan of Care Review Plan of Care Reviewed With patient;spouse (P) -BT Outcome Evaluation Pt presents with deficits including remote L sided weakness, balance and following commands. Pt engaged in toileting tasks during evaluation and required v/c for safe placement andtransfers. Pt may have R side visual deficits however was unable to follow commands, further testing may be beneficial. Pt would benefit from IP OT to address deficits, Recommend home with A and homehealth. (P) -BT Row Name 02/03/25921 Therapy Assessment/Plan (OT) Rehab Potential (OT) good (P) -BT Criteria for Skilled Therapeutic Interventions Met (OT) yes;meets criteria (P) -BT Therapy Frequency (OT) daily (P) -BT Predicted Duration of Therapy Intervention (OT) 10 days (P) -BT Row Name 02/03/25921 Therapy Plan Review/Discharge Plan (OT) Anticipated Discharge Disposition (OT) home with assist;home with home health (P) -BT Row Name 02/03/25921 Vital Signs Pre Systolic BP Rehab 108 (P) -BT Pre Treatment Diastolic BP 72 (P) -BT Post Systolic BP Rehab 125 (P) -BT Post Treatment Diastolic BP 71 (P) -BT Pre Patient Position Supine (P) -BT Intra Patient Position Standing (P) -BT Post Patient Position Sitting (P) -BT Row Name 02/03/25921 Positioning and Restraints Pre-Treatment Position in bed (P) -BT Post Treatment Position chair (P) -BT In Chair notified nsg;reclined;call light within reach;encouraged to call for assist;exit alarm on;with family/caregiver;waffle cushion;legs elevated (P) -BT User Hinton (r) = Recorded By, (t) = Taken By, (c) = Cosigned By Initials Name Provider Type BT Junie Cardoso, OT Student OT Student Outcome Measures Row Name 02/03/25937 How much help from another is currently needed... Putting on and taking off regular lower body clothing? 2 (P) -BT Bathing (including washing, rinsing, and drying) 2 (P) -BT Toileting (which includes using toilet bed ross or urinal) 3 (P) -BT Putting on and taking off regular upper body clothing 3 (P) -BT Taking care of personal grooming (such as brushing teeth) 3 (P) -BT Eating meals 4 (P) -BT AM-PAC 6 Clicks Score (OT) 17 (P) -BT Row Name 02/03/25 0000 How much help from another person do you currently need... Turning from your back to your side while in flat bed without using bedrails? 3 -TS Moving from lying on back to sitting on the side of a flat bed without bedrails? 3 -TS Moving to and from a bed to a chair (including a wheelchair)? 3 -TS Standing up from a chair using your arms (e.g., wheelchair, bedside chair)? 3 -TS Climbing 3-5 steps with a railing? 2 -TS To walk in hospital room? 3 -TS AM-PAC 6 Clicks Score (PT) 17 -TS Row Name 02/03/25937 Modified Vanderbilt Scale Pre-Stroke Modified Vanderbilt Scale 6 - Unable to determine (UTD) from the medical record documentation (P) -BT Modified Vanderbilt Scale 2 - Slight disability. Unable to carry out all previous activities but able to look after own affairs without assistance. (P) -BT Row Name 02/03/2538 Functional Assessment Outcome Measure Options AM-PAC 6 Clicks Daily Activity (OT);Modified Aparna (P) -BT User Hinton (r) = Recorded By, (t) = Taken By, (c) = Cosigned By Initials Name Provider Type TS Saurabh Courtney, SHIRLEY Registered Nurse BT Junie Cardoso, OT Student OT Student Occupational Therapy Education Title: PT OT [employer] Therapies (In Progress) Topic: Occupational Therapy (In Progress) Point: ADL training (Done) Learning Progress Summary Patient Acceptance, E, VU,NR by BT at 02/03/2025938 Significant Other Acceptance, E, VU,NR by BT at 02/03/2025938 Point: Body mechanics (Done) Learning Progress Summary Patient Acceptance, E, VU,NR by BT at 02/03/2025938 Significant Other Acceptance, E, VU,NR by BT at 02/03/2025938 User Hinton Initials Effective Dates Name Provider Type Discipline BT 01/07/25 - Junie Cardoso, OT Student OT Student OT OT Recommendation and Plan Recommended discharge disposition is based on the functional assessment performed by PT/OT/Speech therapy (as applicable) and may not reflect the medical necessity determined by your provider or services covered by an individual patient's insurance plan or patient resource. Planned Therapy Interventions (OT): (P) activity tolerance training, adaptive equipment training, BADL retraining, functional balance retraining, IADL retraining, passive ROM/stretching, patient/caregiver education/training, ROM/therapeutic exercise, strengthening exercise, transfer/mobility retraining, occupation/activity based interventions Therapy Frequency (OT): (P) daily Plan of Care Review Plan of Care Reviewed With: (P) patient, spouse Outcome Evaluation: (P) Pt presents with deficits including remote L sided weakness, balance and following commands. Pt engaged in toileting tasks during evaluation and required v/c for safe placement and transfers. Pt may have R side visual deficits however was unable to follow commands, further testing may be beneficial. Pt would benefit from IP OT to address deficits, Recommend home with [facility]. Time Calculation: Evaluation Complexity (OT) Review Occupational Profile/Medical/Therapy History Complexity: (P) brief/low complexity Assessment, Occupational Performance/Identification of Deficit Complexity: (P) 1-3 performance deficits Clinical Decision Making Complexity (OT): (P) problem focused assessment/low complexity Overall Complexity of Evaluation (OT): (P) low complexity Time Calculation- OT Row Name 02/03/25 1004 Time Calculation- OT OT Start Time 0815 (P) -BT OT Received On 02/03/25 (P) -BT OT Goal Re-Cert Due Date 02/13/25 (P) -BT Untimed Charges OT Eval/Re-eval Minutes 65 (P) -BT Total Minutes Untimed Charges Total Minutes 65 (P) -BT Total Minutes 65 (P) -BT User Hinton (r) = Recorded By, (t) = Taken By, (c) = Cosigned By Initials Name Provider Type BT Junie Cardoso, OT Student OT Student Therapy Charges for Today Code Description Service Date Service Provider Modifiers Qty [id number] HC-OT EVAL LOW COMPLEXITY 5 02/03/2025 Junie Cardoso, BECKI Student 1 Junie Cardoso OT Student 02/03/2025 Cosigned by Lola Jones OT at 02/03/2025 10:11 AM EDT Associated attestation - Lola Jones OT - 02/03/2025 10:11 AM EDT I attest, as a qualified practitioner, that I was present for the entire session of this patient's care without engagement in other tasks and that the student's participation was guided by my direction and skilled clinical judgement. Lola Jones OTR/L 02/03/2025 10:11AM. documented in this encounter Plan of Treatment Upcoming Encounters Date Type Department Care Team (Late st Contact Info) Description 03/10/2025 1:30 PM EDT Appointment [facility] [address] [place] [id number] 05/06/2025 1:30 PM EST Office Visit [facility] [address] [place] [address] Fanny Sadler APRN [address] [facility] [address] [place] [address] 05/09/2025 11:30 AM EST Office Visit [facility] [address] [facility] [place] [address] Jeffery Phillips PA-C [address] [place] [address] Scheduled Referrals Name Type Priority Associated Diagnoses Order Schedule Ambulatory Referral to Neurology Outpatient Referral Routine Cerebrovascular accident (CVA) due to bilateral stenosis of middle cerebral arteries Ordered: 02/04/2025 Ambulatory Referral to Home Health Outpatient Referral Routine Stenosis of left carotid artery Dysarthria Aphasia Cerebrovascular accident (CVA) due to bilateral stenosis of middle cerebral arteries Ordered: 02/04/2025 documented as of this encounter Procedures Procedure Name Priority Date/Time Associated Diagnosis Comments POCT GLUCOSE FINGERSTICK Routine 02/05/2025 11:37 AM EDT POCT GLUCOSE FINGERSTICK Routine 02/05/2025 7:41 AM EDT POCT GLUCOSE FINGERSTICK Routine 02/04/2025 7:42 PM EDT POCT GLUCOSE FINGERSTICK Routine 02/04/2025 5:01 PM EDT DUPLEX CAROTID LEFT CAR - PERFORMED PROCEDURE STAT 02/04/2025 1:51 PM EDT INVASIVE PV STUDY Routine 02/04/2025 11: 10 AM EDT Stenosis of left carotid artery P2Y12 PLATELET INHIBITION Routine 02/04/2025 9:09 AM EDT POCT GLUCOSE FINGERSTICK Routine 02/04/2025 7:38 AM EDT BASIC METABOLIC PANEL Routine 02/04/2025 7:23 AM EDT POCT GLUCOSE FINGERSTICK Routine 02/03/2025 8:16 PM EDT POCT GLUCOSE FINGERSTICK Routine 02/03/2025 6:29 PM EDT POCT GLUCOSE FINGERSTICK Routine 02/03/2025 5:18 PM EDT P2Y12 PLATELET INHIBITION STAT 02/03/2025 5:06 PM EDT POCT GLUCOSE FINGERSTICK Routine 02/03/2025 12:28 PM EDT CBC (NO DIFF) Urgent 02/03/2025 11:39 AM EDT HEMOGLOBIN A1C Urgent 02/03/2025 11:39 AM EDT LIPID PANEL Urgent 02/03/2025 11:39 AM EDT COMPREHENSIVE METABOLIC PANEL Urgent 02/03/2025 11:39 AM EDT DUPLEX CAROTID BILATERAL CAR - PERFORMED PROCEDURE Routine 02/03/2025 11:00 AM EDT ECHO COMPLETE W/ DOPPLER AND COLOR FLOW Routine 02/03/2025 11:00 AM EDT POCT GLUCOSE FINGERSTICK Routine 02/03/2025 9:32 AM EDT MRI BRAIN WO CONTRAST Routine 02/03/2025 3:31 AM EDT POCT GLUCOSE FINGERSTICK Routine 02/02/2025 10:[address] OUTSIDE NECK Routine 02/02/2025 6:[address] OUTSIDE HEAD Routine 02/02/2025 6:[address] OUTSIDE HEAD Routine 02/02/2025 6:44 PM EDT POCT GLUCOSE FINGERSTICK Routine 02/02/2025 6:32 PM EDT SCANNED EKG 02/02/2025 SCANNED - IMAGING 02/02/2025 SCANNED - IMAGING 02/02/2025 SCANNED - IMAGING 02/02/2025 documented in this encounter Results * POC Glucose 4x Daily Before Meals & at Bedtime (02/05/2025 11:37 AM EDT) Glucose 73 70 - 130 mg/dL 02/05/2025 11:43 AM EDT [facility] Comment:Serial Number: [id number]: [id number] Blood 02/05/2025 11:3 7 AM EDT 02/05/2025 11:43 AM EDT us Beckie Hsu MD POINT OF CARE TEST ORDERABLES Final Result Performing Organization Address City/[facility] Co de Phone Number [facility]
[address] [place] [address], * POC Glucose 4x Daily Before Meals & at Bedtime (02/05/2025 7:41 AM EDT) Glucose 109 70 - 130 mg/dL 02/05/2025 7:43 AM EDT [facility] Comment:Serial Number: [id number]: [id number] Blood 02/05/2025 7:41 AM EDT 02/05/2025 7:43 AM EDT us Beckie Hsu MD POINT OF CARE TEST ORDERABLES Final Result Performing Organization Address City/[facility] Co de Phone Number [facility]
[address] [place] [address], * POC Glucose Once (02/04/2025 7:42 PM EDT) Glucose 88 70 - 130 mg/dL 02/04/2025 7:45 PM EDT [facility] Comment:Serial Number: [id number]: [id number] Blood 02/04/2025 7:42 PM EDT 02/04/2025 7:45 PM EDT Iker Gomes MD POINT OF CARE TEST ORDERABLES Final Result Performing Organization Address [facility] Co de Phone Number [facility]
[address] [place] [address], * POC Glucose 4x Daily Before Meals & at Bedtime (02/04/2025 5:01 PM EDT) Glucose 122 70 - 130 mg/dL 02/04/2025 5:05 PM EDT [facility] Comment:Serial Number: [id number]: [id number] Blood 02/04/2025 5:01 PM EDT 02/04/2025 5:05 PM EDT Beckie Hsu MD POINT OF CARE TEST ORDERABLES Final Result Performing Organization Address [facility] Co de Phone Number [facility]
[address] [place] [address], * DUPLEX CAROTID LEFT CAR - PERFORMED PROCEDURE (02/04/2025 1:51 PM EDT) Prox CCA PSV 42.8 cm/sec Prox CCA EDV 8.9 cm/sec left Mid CCA PSV 47.4 cm/sec left Mid CCA EDV 11.3 cm/sec Dist CCA PSV 45.0 cm/sec Dist CCA EDV 10.6 cm/sec Prox ICA PSV 50.8 cm/sec Prox ICA EDV 11.8 cm/sec Mid ICA PSV 59.7 cm/sec Mid ICA EDV 16.3 cm/sec Dist ICA PSV 46.0 cm/sec Dist ICA EDV 10.0 cm/sec Prox ECA PSV 41.5 cm/sec Prox ECA EDV 9.9 cm/sec Vertebral A PSV 46.4 cm/sec Vertebral A EDV 11.4 cm/sec Prox SCLA PSV 83.5 cm/sec ICA/CCA ratio 1.33 Lt. Prx to Stent 42.8 cm/s Lt Prx to stent EDV 8.9 cm/s Lt. Prox Stent 45.0 cm/s Lt. Prx stent 10.6 cm/s Lt Mid Stent 50.8 cm/s Lt Mid Stent 11.8 cm/s Lt Distal Stent 46.3 cm/s BH CV VAS CAROTID LEFT DISTAL STENT EDV 13.4 cm/s Lt Dist To Stent 59.7 cm/s BH CV VAS CAROTID LEFT DISTAL TO STENT EDV 16.3 cm/s Left CCA Stent hidden 1.00 cm/s BH CVPROX LEFT ICA HIDDEN LRR 1.00 cm BH CV MID LEFT ICA HIDDEN LRR 1.00 cm BH CV VAS PRELIMINARY FINDINGS SCRIPTING 1.0 Anatomical Region Laterality Modality Vascular, Head Ultrasound Narrative 02/04/2025 4:37 PM EDT Left carotid stent is patent without evidence of in-stent restenosis. PSV 59.7 cm/s, EDV 16.3 cm/s. Ratio 1.33 Antegrade left vertebral flow. Much improved left ICA velocities compared to the study from 02/03/2025 Study Impression Left Other Conclusions: Left carotid stent is patent without evidence of in- stent restenosis. Study Findings Left CCA Dist: Stented vessel. Left Carotid Bulb: Stented vessel. Left ICA Prox: Stented vessel. Left ICA Mid: Stented vessel. Left Vertebral: Antegrade flow noted. Additional Study Details Study findings given to Jeffery Phililps on 02/04/2025 at 14:01 EDT. The study is technically excellent for diagnosis. us Jeffery Phillips PA-C CV VASCULAR ORDERABLES Final R esult * STENT CAROTID (02/04/2025 11:10 AM EDT) Anatomical Region Laterality Modality X-Ray Angiograph y Narrative 02/07/2025 1:44 PM EDT Procedure Narrative Procedure-cerebral angiography note Preprocedural diagnosis Carotid stenosis symptomatic high-grade left-sided Postprocedural diagnosis Same Procedures performed 1. Right-sided radial approach using ultrasound guidance 2. Right-sided common carotid catheterization angiogram 3. Right-sided common carotid cerebral angiogram 4. Left sided common carotid artery angiography and catheterization 5. Left-sided common carotid cerebral angiogram 6. Right sided vertebral cerebral angiogram 7. Left-sided upper extremity angiogram Placement of carotid artery stent using distal embolic protection device large TRISTON-6 the guide catheter 10-8 exact with a destination long sheath TR band right wrist Surgeon: Mason Baptiste ANS Assistants Complications none apparent ACT greater than 250 with therapeutic 100 IU-per kilogram heparinization Access site right radial Procedure in detail After formal written consent was obtained the patient was taken to the angiography suite and prepped and draped in the usual sterile manner. Risk and benefits were explicitly explained. After this point in time the patient was anesthetized at the right radial using local micropuncture technique and ultrasound was used to access right radial artery a sheath was placed At this point in time navigation of a 5 Vietnamese Peoples catheter into the above selected vessels was performed with little difficulty diagnostic angiograms were performed using 8-10 cc of dilute Visipaque 320 contrast with selective catheterization of the left upper extremity left common right common and right upper extremity and right vertebral At this point time exchange link catheterization in the left common carotid artery was performed. With a [place] destination the Dunbar was placed in the left occipital area after systemic catheterization and cocktail of been given. A guide sheath was placed in the common carotid artery and at this point time the navigation of the embolic protection device was performed through the carotid stenosis and deployed respectively the 90% carotid artery stenosis was navigated easily and subsequent deployment of the stent with angioplasty with 6 mm balloon yielded less than 10% stenosis This was after therapeutic heparinization and strict blood pressure control DSA angiogram of the head appeared good At the resolution of the case TR band was applied there was some transient cyanosis of the right hand it was symmetric actually looked that resolved the patient had good capillary refill and repeat examination after loosening the right TR band showed a normal appearing hand and radial's findings Findings Right-sided common carotid artery angiography demonstrates a age-related mild stenosis of the right internal carotid artery Right-sided common carotid cerebral angiogram demonstrates right sided EMILE dominance with bilateral EMILE filling perfusion of the right hemisphere is within normal limits no evidence of large aneurysms is noted no intracranial stenosis is noted Right-sided vertebral angiogram demonstrates a hypoplastic right vertebral with patency of the basilar system no evidence aneurysm or high-grade stenosis is seen Upper upper left upper extremity demonstrates a dominant left vertebral origin with antegrade filling of the posterior circulation Left-sided common carotid artery angiogram demonstrates a 90% stenosis with ulcerative plaque of the left internal origin Left-sided common carotid cerebral angiogram demonstrates an isolated hemisphere with a virtually absent left A1 segment seen as a variant of normal Left-sided follow-up angiogram after diagnostic angiogram and stent angioplasty and stent demonstrates less than 10% residual stenosis Final impression Successful left-sided carotid artery stenting with distal embolic protection device device. No immediate complications noted high risk lesion were noted. This was a symptomatic high-grade plaque us Jeffery Phillips PA-C INV IR ORDERABLES Final Result * P2Y12 Platelet Inhibition (02/04/2025 9:09 AM EDT) [facility] Signature P2Y12 Reactivity Unit 180 PRU DISK DIFFUSION 02/04/2025 9:50 AM EDT [facility] Blood Venipuncture / Unknown 02/04/2025 9:09 AM EDT 02/04/2025 9:17 AM EDT [facility] - 02/04/2025 9:50 AM EDT P2Y12 Interpretation: Pre-Drug normal reference range is 194-418 PRU. Test results are reported in P2Y12 reaction units (PRU). This measures the extent of platelet aggregation in the presence of P2Y12 inhibitor drugs, such as clopidogrel (Plavix), prasugrel (Effient), ticagrelor (Brilinta), ticlopidine (Ticlid). P2Y12 values <194 PRU (low end of reference range) are specific evidence of a P2Y12 inhibitor effect. Patients who have been treated with Glycoprotein IIb/IIIa inhibitors should not be tested until platelet function has recovered. This time period is approximately 14 days after discontinuation of abciximab (ReoPro) and up to 48 hours after discontinuation of eptifibatide (Integrilin) and tirofiban (Aggrastat). The P2Y12 test results should be interpreted in conjunction with other clinical and lab data available to the clinician. Jeffery Phillips PA-C LAB BLOOD ORDERABLES Final Res ult Performing Organization Address [facility]/ZIP Co de Phone Number [facility]
[address] [place] [address], * POC Glucose 4x Daily Before Meals & at Bedtime (02/04/2025 7:38 AM EDT) Glucose 98 70 - 130 mg/dL 02/04/2025 7:42 AM EDT [facility] Comment:Serial Number: [id number]: [id number] Blood 02/04/2025 7:38 AM EDT 02/04/2025 7:42 AM EDT Beckie Hsu MD POINT OF CARE TEST ORDERABLES Final Result Performing Organization Address [facility] Co de Phone Number [facility]
[address] [place] [address], * (ABNORMAL) Basic Metabolic Panel (02/04/2025 7:23 AM EDT) Glucose 92 65 - 99 mg/dL 02/04/2025 8:05 AM EDT [facility] BUN 20.5 8.0 - 23.0 mg/dL 02/04/2025 8:05 AM EDT [facility] Creatinine 1.26 0.76 - 1.27 mg/dL 02/04/2025 8:05 AM EDT [facility] Sodium 139 136 - 145 mmol/L 02/04/2025 8:05 AM EDT [facility] Potassium 4.6 3.5 - 5.2 mmol/L 02/04/2025 8:05 AM EDT [facility] Comment:Slight hemolysis det ected by analyzer. Result may be falsely elevated. Chloride 106 98 - 107 mmol/L 02/04/2025 8:05 AM EDT [facility] CO2 21.0(L) 22.0 - 29.0 mmol/L 02/04/2025 8:05 AM EDT [facility] Calcium 9.0 8.6 - 10.5 mg/dL 02/04/2025 8:05 AM EDT [facility] BUN/Creatinine Ratio 16.3 7.0 - 25.0 02/04/2025 8:05 AM EDT [facility] Anion Gap 12.0 5.0 - 15.0 mmol/L 02/04/2025 8:05 AM EDT [facility] eGFR 60.2 >60.0 mL/min/1.7 3 02/04/2025 8:05 AM EDT [facility] Blood Venipuncture / Unknown 02/04/2025 7:23 AM EDT 02/04/2025 7:27 AM EDT Narrative [facility] - 02/04/2025 8:05 AM EDT GFR Categories in Chronic Kidney Disease (CKD) GFR Category GFR (mL/min/1.73) Interpretation G1 90 or greater Normal or high (1) G2 60-89 Mild decrease (1) G3a 45-59 Mild to moderate decrease G3b 30-44 Moderate to severe decrease G4 15-29 Severe decrease G5 14 or less Kidney failure (1)In the absence of evidence of kidney disease, neither GFR category G1 or G2 fulfill the criteria for CKD. eGFR calculation 2020 CKD-EPI creatinine equation, which does not include race as a factor Ruddy Monteiro DO LAB BLOOD ORDERABLES Birgit l Result [facility]
[address] [place] [address], * POC Glucose Once (02/03/2025 8:16 PM EDT) Glucose 92 70 - 130 mg/dL 02/03/2025 8:18 PM EDT [facility] Comment:Serial Number: [id number]: [id number] Blood 02/03/2025 8:16 PM EDT 02/03/2025 8:18 PM EDT Ruddy Monteiro DO POINT OF CARE TEST ORDERA BLES Final Result Performing Organization Address City/[facility]/ZIP Co de Phone Number [facility]
[address] [place] [address], * (ABNORMAL) POC Glucose Q6H (02/03/2025 6:29 PM EDT) Glucose 155(H) 70 - 130 mg/dL 02/03/2025 6:34 PM EDT [facility] Comment:Serial Number: [id number]: [id number] Blood 02/03/2025 6:29 PM EDT 02/03/2025 6:34 PM EDT Estrella Hsu APRN POINT OF CARE TEST ORDERABLES Final Result Performing Organization Address [facility]/ZIP Co de Phone Number [facility]
[address] [place] [address], * POC Glucose 4x Daily Before Meals & at Bedtime (02/03/2025 5:18 PM EDT) Glucose 71 70 - 130 mg/dL 02/03/2025 5:20 PM EDT [facility] Comment:Serial Number: [id number]: [id number] Blood 02/03/2025 5:18 PM EDT 02/03/2025 5:20 PM EDT Beckie Hsu MD POINT OF CARE TEST ORDERABLES Final Result Performing Organization Address [facility]/ZIP Co de Phone Number [facility]
[address] [place] [address], * P2Y12 Platelet Inhibition (02/03/2025 5:06 PM EDT) P2Y12 Reactivity Unit 232 PRU DISK DIFFUSION 02/03/2025 5:53 PM EDT [facility] Blood Venipuncture / Unknown 02/03/2025 5:06 PM EDT 02/03/2025 5:17 PM EDT Narrative [facility] - 02/03/2025 5:53 PM EDT P2Y12 Interpretation: Pre-Drug normal reference range is 194-418 PRU. Test results are reported in P2Y12 reaction units (PRU). This measures the extent of platelet aggregation in the presence of P2Y12 inhibitor drugs, such as clopidogrel (Plavix), prasugrel (Effient), ticagrelor (Brilinta), ticlopidine (Ticlid). P2Y12 values <194 PRU (low end of reference range) are specific evidence of a P2Y12 inhibitor effect. Patients who have been treated with Glycoprotein IIb/IIIa inhibitors should not be tested until platelet function has recovered. This time period is approximately 14 days after discontinuation of abciximab (ReoPro) and up to 48 hours after discontinuation of eptifibatide (Integrilin) and tirofiban (Aggrastat). The P2Y12 test results should be interpreted in conjunction with other clinical and lab data available to the clinician. Jeffery Phillips PA-C LAB BLOOD ORDERABLES Final Res ult [facility]
[address] [place] [address], * (ABNORMAL) POC Glucose Q6H (02/03/2025 12:28 PM EDT) Glucose 68(L) 70 - 130 mg/dL 02/03/2025 12:43 PM EDT [facility] Comment:Serial Number: [id number]: [id number] Blood 02/03/2025 12:2 8 PM EDT 02/03/2025 12:42 PM EDT Estrella Hsu EXCELLENCE LEADER POINT OF CARE TEST ORDERABLES Final Result [facility]
[address] [place] [address], * (ABNORMAL) Comprehensive Metabolic Panel (02/03/2025 11:39 AM EDT) Glucose 90 65 - 99 mg/dL 02/03/2025 12:47 PM EDT [facility] BUN 24.7(H) 8.0 - 23.0 mg/dL 02/03/2025 12:47 PM EDT [facility] Creatinine 1.39(H) 0.76 - 1.27 mg/dL 02/03/2025 12:47 PM EDT [facility] Sodium 137 136 - 145 mmol/L 02/03/2025 12:47 PM EDT [facility] Potassium 4.8 3.5 - 5.2 mmol/L 02/03/2025 12:47 PM EDT [facility] Comment:Specimen hemolyzed. Result may be falsely elevated. Chloride 102 98 - 107 mmol/L 02/03/2025 12:47 PM EDT [facility] CO2 23.5 22.0 - 29.0 mmol/L 02/03/2025 12:47 PM EDT [facility] Calcium 9.3 8.6 - 10.5 mg/dL 02/03/2025 12:47 PM EDT [facility] Total Protein 7.1 6.0 - 8.5 g/dL 02/03/2025 12:47 PM EDT [facility] Albumin 3.8 3.5 - 5.2 g/dL 02/03/2025 12:47 PM EDT [facility] ALT (SGPT) 10 1 - 41 U/L 02/03/2025 12:47 PM EDT [facility] AST (SGOT) 21 1 - 40 U/L 02/03/2025 12:47 PM EDT [facility] Alkaline Phosphatase 86 39 - 117 U/L 02/03/2025 12:47 PM EDT [facility] Total Bilirubin 0.3 0.0 - 1.2 mg/dL 02/03/2025 12:47 PM EDT [facility] Globulin 3.3 gm/dL 02/03/2025 12:47 PM EDT [facility] Comment:Calculated Result A/G Ratio 1.2 g/dL 02/03/2025 12:47 PM EDT [facility] BUN/Creatinine Ratio 17.8 7.0 - 25.0 02/03/2025 12:47 PM EDT [facility] Anion Gap 11.5 5.0 - 15.0 mmol/L 02/03/2025 12:47 PM EDT [facility] eGFR 53.5(L) >60.0 mL/min/1.7 3 02/03/2025 12:47 PM EDT [facility] Blood Venipuncture / Unknown 02/03/2025 11:39 AM EDT 02/03/2025 12:22 PM EDT Narrative [facility] - 02/03/2025 12:47 PM EDT GFR Categories in Chronic Kidney Disease (CKD) GFR Category GFR (mL/min/1.73) Interpretation G1 90 or greater Normal or high (1) G2 60-89 Mild decrease (1) G3a 45-59 Mild to moderate decrease G3b 30-44 Moderate to severe decrease G4 15-29 Severe decrease G5 14 or less Kidney failure (1)In the absence of evidence of kidney disease, neither GFR category G1 or G2 fulfill the criteria for CKD. eGFR calculation 2020 CKD-EPI creatinine equation, which does not include race as a factor us Ruddy Monteiro DO LAB BLOOD ORDERABLES Birgit bello Result [facility]
[address] [place] [address], * (ABNORMAL) CBC (No Diff) (02/03/2025 11:39 AM EDT) WBC 7.64 3.40 - 10.80 10*3/mm3 02/03/2025 12:44 PM EDT [facility] RBC 4.31 4.14 - 5.80 10*6/mm3 02/03/2025 12:44 PM EDT [facility] Hemoglobin 12.4(L) 13.0 - 17.7 g/dL 02/03/2025 12:44 PM EDT [facility] Hematocrit 40.3 37.5 - 51.0 % 02/03/2025 12:44 PM EDT [facility] MCV 93.5 79.0 - 97.0 fL 02/03/2025 12:44 PM EDT [facility] MCH 28.8 26.6 - 33.0 pg 02/03/2025 12:44 PM EDT [facility] MCHC 30.8(L) 31.5 - 35.7 g/dL 02/03/2025 12:44 PM EDT [facility] RDW 12.8 12.3 - 15.4 % 02/03/2025 12:44 PM EDT [facility] RDW-SD 44.2 37.0 - 54.0 fl 02/03/2025 12:44 PM EDT [facility] MPV 9.9 6.0 - 12.0 fL 02/03/2025 12:44 PM EDT [facility] Platelets 174 140 - 450 10*3/mm3 02/03/2025 12:44 PM EDT [facility] Blood Venipuncture / Unknown 02/03/2025 11:39 AM EDT 02/03/2025 12:22 PM EDT us Beckie Hsu MD LAB BLOOD ORDERABLES Final Re sult [facility]
[address] [place] [address], * (ABNORMAL) Lipid Panel (02/03/2025 11:39 AM EDT) Total Cholesterol 93 0 - 200 mg/dL 02/03/2025 12:47 PM EDT [facility] Triglycerides 83 0 - 150 mg/dL 02/03/2025 12:47 PM EDT [facility] HDL Cholesterol 24(L) 40 - 60 mg/dL 02/03/2025 12:47 PM EDT [facility] LDL Cholesterol 52 0 - 100 mg/dL 02/03/2025 12:47 PM EDT [facility] VLDL Cholesterol 17 5 - 40 mg/dL 02/03/2025 12:47 PM EDT [facility] LDL/HDL Ratio 2.18 02/03/2025 12:47 PM EDT [facility] Blood Venipuncture / Unknown 02/03/2025 11:39 AM EDT 02/03/2025 12:22 PM EDT Narrative [facility] - 02/03/2025 12:47 PM EDT Cholesterol Reference Ranges (U.S. Department of Health and Human Services ATP III Classifications) Desirable <200 mg/dL Borderline High 200-239 mg/dL High Risk >240 mg/dL Triglyceride Reference Ranges (U.S. Department of Health and Human Services ATP III Classifications) Normal <150 mg/dL Borderline High 150-199 mg/dL High 200-499 mg/dL Very High >500 mg/dL HDL Reference Ranges (U.S. Department of Health and Human Services ATP III Classifications) Low <40 mg/dl (major risk factor for CHD) High >60 mg/dl ('negative' risk factor for CHD) LDL Reference Ranges (U.S. Department of Health and Human Services ATP III Classifications) Optimal <100 mg/dL Near Optimal 100-129 mg/dL Borderline High 130-159 mg/dL High 160-189 mg/dL Very High >189 mg/dL LDL is calculated using the NIH LDL-C calculation. us Estrella Hsu APRN LAB BLOOD ORDERABLE S Final Result [facility]
[address] [place] [address], * Hemoglobin A1c (02/03/2025 11:39 AM EDT) Hemoglobin A1C 5.42 4.80 - 5.60 % 02/03/2025 1:21 PM EDT [facility] Blood Venipuncture / Unknown 02/03/2025 11:39 AM EDT 02/03/2025 12:22 PM EDT Narrative [facility] - 02/03/2025 1:21 PM EDT Hemoglobin A1C Ranges: Increased Risk for Diabetes 5.7% to 6.4% Diabetes >= 6.5% Diabetic Goal < 7.0% Estrella Hsu EXCELLENCE LEADER LAB BLOOD ORDERABLE S Final Result [facility]
[address] [place] [address], * DUPLEX CAROTID BILATERAL CAR - PERFORMED PROCEDURE (02/03/2025 11:00 AM EDT) Prox CCA PSV 92.2 cm/sec Prox CCA EDV 17.9 cm/sec Right Mid CCA PSV 97.6 cm/sec right Mid CCA EDV 17.9 cm/sec Dist CCA PSV 83.9 cm/sec Dist CCA EDV 18.5 cm/sec Prox ICA PSV 84.5 cm/sec Prox ICA EDV 20.6 cm/sec Mid ICA PSV 95.6 cm/sec Mid ICA EDV 29.8 cm/sec Dist ICA PSV 89.3 cm/sec Dist ICA EDV 25.8 cm/sec Prox ECA PSV 98.2 cm/sec Prox ECA EDV 13.1 cm/sec Vertebral A PSV 48.2 cm/sec Vertebral A EDV 12.2 cm/sec Prox CCA PSV 88.7 cm/sec Prox CCA EDV 21.2 cm/sec left Mid CCA PSV 72.7 cm/sec left Mid CCA EDV 19.0 cm/sec Dist CCA PSV 68.8 cm/sec Dist CCA EDV 16.9 cm/sec Prox ICA PSV 238.5 cm/sec Prox ICA EDV 50.0 cm/sec Mid ICA PSV 76.0 cm/sec Mid ICA EDV 18.9 cm/sec Dist ICA PSV 54.3 cm/sec Dist ICA EDV 18.6 cm/sec Prox ECA PSV 226.5 cm/sec Prox ECA EDV 16.7 cm/sec Vertebral A PSV 65.9 cm/sec Vertebral A EDV 19.8 cm/sec Prox SCLA PSV 142.0 cm/sec ICA/CCA ratio 1.14 Prox SCLA PSV 99.3 cm/sec ICA/CCA ratio 3.48 Left arm BP 125/71 mmHg Anatomical Region Laterality Modality Ultrasound Narrative 02/03/2025 2:59 PM EDT Right internal carotid artery demonstrates a less than 50% stenosis. Antegrade right vertebral flow. Left internal carotid artery demonstrates a 50-69% stenosis. Antegrade left vertebral flow. Study Impression Right ICA: Imaging indicates <50% stenosis. Left ICA: Imaging indicates 50-69% stenosis. Study Findings Right CCA Prox: No plaque visualized. Tortuous vessel. Right CCA Mid: No plaque visualized. Right CCA Dist: No plaque visualized. Intima-medial thickening noted. Right ICA Prox: Smooth homogeneous plaque present. Right ICA Mid: No plaque visualized. Right ICA Dist: No plaque visualized. Right ECA: No plaque visualized. Right Vertebral: Antegrade flow noted. Left CCA Prox: No plaque visualized. Left CCA Mid: No plaque visualized. Left CCA Dist: Smooth homogeneous plaque present. Intima-medial thickening noted. Left ICA Prox: Irregular calcified heterogeneous plaque present. Left ICA Mid: No plaque visualized. Left ICA Dist: No plaque visualized. Left ECA: Irregular calcific heterogeneous plaque present. Left Vertebral: Antegrade flow noted. us Estrella Condon Shadi EXCELLENCE LEADER CV VASCULAR ORDERAB LES Final Result * ECHO COMPLETE W/ DOPPLER AND COLOR FLOW (02/03/2025 11:00 AM EDT) 2D AUTO EF 64.4 % LVIDd 4.1 cm LVIDs 2.10 cm IVSd 0.90 cm LVPWd 0.70 cm IVS/LVPW 1.29 cm LV Sys Vol (BSA corrected) 19.6 cm2 LV Land Vol (BSA corrected) 48.1 cm2 LVOT area 3.5 cm2 LVOT diam 2.10 cm EDV(MOD-sp2) 92.3 ml EDV(MOD-sp4) 81.1 ml ESV(MOD-sp2) 30.0 ml ESV(MOD-sp4) 33.1 ml SV(MOD-sp2) 62.3 ml SV(MOD-sp4) 48.0 ml SVi(MOD-SP2) 36.9 ml/m2 SVi(MOD-SP4) 28.4 ml/m2 SVi (LVOT) 31.4 ml/m2 EF(MOD-sp2) 67.5 % EF(MOD-sp4) 59.2 % MV E max joseph 53.0 cm/sec MV A max joseph 68.6 cm/sec MV E/A 0.77 IVRT 87.0 ms LA ESV Index (BP) 20.1 ml/m2 Med Peak E' Joseph 7.8 cm/sec Lat Peak E' Joseph 8.6 cm/sec TR max joseph 355.8 cm/sec Avg E/e' ratio 6.46 SV(LVOT) 53.0 ml RV Base 5.1 cm RV Mid 4.5 cm RV Length 7.8 cm TAPSE (>1.6) 1.94 cm RV S' 14.0 cm/sec LA dimension (2D) 3.8 cm LV V1 max 75.4 cm/sec LV V1 max PG 2.27 mmHg LV V1 mean PG 1.00 mmHg LV V1 VTI 15.3 cm Ao pk joseph 204.2 cm/sec Ao max PG 16.8 mmHg Ao mean PG 9.3 mmHg Ao V2 VTI 39.0 cm ELFEGO(I,D) 1.36 cm2 Dimensionless Index 0.39 (DI) AI P1/2t 468.0 msec MV P1/2t 57.0 msec MVA(P1/2t) 3.8 cm2 MV dec slope 324.7 cm/sec2 TR max PG 50.7 mmHg RV V1 max PG 1.02 mmHg RV V1 max 50.4 cm/sec RV V1 VTI 10.8 cm PA V2 max 97.3 cm/sec PA acc time 0.04 sec PI end-d joseph 124.2 cm/sec Ao root diam 3.2 cm Ascending aorta 3.3 cm Echo EF Estimated 64.0 % PAPd(PI edV) 6 mmHg RVSP(TR) 54 mmHg RAP systole 3 mmHg Anatomical Region Laterality Modality Ultrasound Narrative 02/03/2025 6:57 PM EDT Left ventricular systolic function is normal. Left ventricular ejection fraction appears to be 61 - 65%. Left ventricular diastolic function is consistent with (grade I) impaired relaxation. The right ventricular cavity is mild to moderately dilated. Aortic sclerosis without aortic stenosis. Mild aortic regurgitation. Mild mitral regurgitation. Mild to moderate tricuspid regurgitation with RVSP 54 mmHg. Left Ventricle Left ventricular systolic function is normal. Left ventricular ejection fraction appears to be 61 - 65%. Normal left ventricular cavity size and wall thickness noted. All left ventricular wall segments contract normally. Left ventricular diastolic function is consistent with (grade I) impaired relaxation. Right Ventricle Normal right ventricular wall thickness, systolic function and septal motion noted. The right ventricular cavity is mild to moderately dilated. Left Atrium Normal left atrial size and volume noted. Right Atrium The right atrial cavity is mildly dilated. Mitral Valve The mitral valve is grossly normal in structure. Mild mitral valve regurgitation is present. No significant mitral valve stenosis is present. Tricuspid Valve The tricuspid valve is grossly normal in structure. Mild to moderate tricuspid valve regurgitation is present. Estimated right ventricular systolic pressure from tricuspid regurgitation is moderately elevated (45-55 mmHg). No evidence of significant tricuspid valve stenosis is present. Aortic Valve The aortic valve is abnormal in structure. The aortic valve exhibits sclerosis. There is mild calcification of the aortic valve mainly affecting the non-coronary cusp(s). The aortic valve was poorly visualized but appears trileaflet. Mild aortic valve regurgitation is present. No hemodynamically significant aortic valve stenosis is present. Pulmonic Valve The pulmonic valve is grossly normal in structure. There is mild pulmonic valve regurgitation present. There is no pulmonic valve stenosis present. Pericardium The pericardium is normal. There is no evidence of pericardial effusion. . Greater Vessels No dilation of the aortic root is present. No dilation of the sinuses of Valsalva is present. The inferior vena cava is normally sized. Normal IVC inspiratory collapse of greater than 50% noted. Study Quality The study is technically adequate for diagnosis. Estrella Hsu EXCELLENCE LEADER CV ECHO ORDERABLES Final Result * (ABNORMAL) POC Glucose Once (02/03/2025 9:32 AM EDT) Glucose 142(H) 70 - 130 mg/dL 02/03/2025 9:34 AM EDT [facility] Comment:Serial Number: [id number]: [id number] Blood 02/03/2025 9:32 AM EDT 02/03/2025 9:34 AM EDT Ruddy Monteiro DO POINT OF CARE TEST ORDERA BLES Final Result [facility]
[address] [place] [address], * MRI Brain Without Contrast (02/03/2025 3:31 AM EDT) Anatomical Region Laterality Modality Head, Neck N/A Magnetic Resonan ce 02/03/2025 5:59 AM EDT Impressions 02/03/2025 6:05 AM EDT Impression: Small areas of acute cortical infarct are present within the left frontal and temporal lobes, without evidence of associated hemorrhage or significant mass effect. Otherwise moderate typical chronic and age-related findings are present. Electronically Signed: Jona Iniguez MD 02/03/2025 6:05 AM EDT Workstation ID: [id number] Narrative 02/03/2025 6:05 AM EDT MRI BRAIN WO CONTRAST Date of Exam: 02/03/2025 3:25 AM EDT Indication: Stroke, follow up aphasia and dysarthria. Comparison: None available. Technique: Routine multiplanar/multisequence sequence images of the brain were obtained without contrast administration. Findings: Small areas of diffusion restriction are present consistent with acute infarct along cortical margins in the left frontal and superior temporal lobe. Mild associated edema is present, otherwise without significant mass effect. Midline structures appear normal and the craniocervical junction is satisfactory. Age-related changes are present with moderate generalized volume loss and typical T2 hyperintense subcortical and pontine white matter changes, nonspecific but favored to reflect sequela of chronic microvascular ischemia. There is no evidence of hemorrhage, mass or mass effect. The ventricles demonstrate ex vacuo prominence. The orbits are normal. There is evidence of chronic right maxillary sinusitis. Arterial flow voids appear maintained. Procedure Note Micky Iniguez MD - 02/03/2025 MRI BRAIN WO CONTRAST Date of Exam: 02/03/2025 3:25 AM EDT Indication: Stroke, follow up aphasia and dysarthria. Comparison: None available. Technique: Routine multiplanar/multisequence sequence images of the brainwere obtained without contrast administration. Findings: Small areas of diffusion restriction are present consistent with acuteinfarct along cortical margins in the left frontal and superior temporallobe. Mild associated edema is present, otherwise without significant masseffect. Midline structures appear normal and the craniocervical junction is satisfactory. Age-relatedchanges are present with moderate generalized volume loss and typical [id number] subcortical and pontine white matter changes, nonspecific butfavored to reflect sequela of chronic microvascular ischemia. There is no evidence of hemorrhage, mass or masseffect. The ventricles demonstrate ex vacuo prominence. The orbits arenormal. There is evidence of chronic right maxillary sinusitis. Arterialflow voids appear maintained. IMPRESSION: Impression: Small areas of acute cortical infarct are present within the left frontaland temporal lobes, without evidence of associated hemorrhage orsignificant mass effect. Otherwise moderate typical chronic and age-related findings are present. Electronically Signed: Jona Iniguez MD 02/03/2025 6:05 AM EDT Workstation ID: [id number] Estrella Hsu EXCELLENCE LEADER [facility] MRI ORDERABLES Final Result * POC Glucose 4x Daily Before Meals & at Bedtime (02/02/2025 10:48 PM EDT) Glucose 105 70 - 130 mg/dL 02/02/2025 10:51 PM EDT [facility] Comment:Serial Number: [id number]: [id number] Blood 02/02/2025 10:4 8 PM EDT 02/02/2025 10:51 PM EDT Beckie Hsu MD POINT OF CARE TEST ORDERABLES Final Result [facility]
[address] [place] [address], * CT Outside Head (02/02/2025 6:44 PM EDT) Narrative SYSTEMGENERATED, DOCUMENTATION - 02/02/2025 6:44 PM EDT This procedure was auto-finalized with no dictation required. us [employer] Outside Films IMG CT ORDERABLES Final Re sult * CT Outside Neck (02/02/2025 6:44 PM EDT) Narrative SYSTEMGENERATED, DOCUMENTATION - 02/02/2025 6:44 PM EDT This procedure was auto-finalized with no dictation required. us [employer] IMG CT ORDERABLES Final Re sult * CT Outside Head (02/02/2025 6:44 PM EDT) Narrative SYSTEMGENERATED, DOCUMENTATION - 02/02/2025 6:44 PM EDT This procedure was auto-finalized with no dictation required. us [employer] Outside Films IMG CT ORDERABLES Final Re sult * (ABNORMAL) POC Glucose Once (02/02/2025 6:32 PM EDT) [facility] Signature Glucose 65(L) 70 - 130 mg/dL 02/02/2025 8:46 PM EDT [facility] Comment:Serial Number: [id number]: [id number] Nicole Comment 1 Notified Patients RN 02/02/2025 8:46 PM EDT [facility] Blood 02/02/2025 6:32 PM EDT 02/02/2025 8:46 PM EDT us Vidhya Shields MD POINT OF CARE TEST ORDERABLES Final Result [facility]
[address] [place] [address], * IMAGING SCANNED (02/02/2025) Anatomical Region Laterality Modality Radiographic Nancy ging Result [facility] IMG DIAGNOSTIC IMAGING ORDERA BLES Final Result * IMAGING SCANNED (02/02/2025) Anatomical Region Laterality Modality Radiographic Nancy ging [facility] IMG DIAGNOSTIC IMAGING ORDERA BLES Final Result * IMAGING SCANNED (02/02/2025) Anatomical Region Laterality Modality Radiographic Nancy ging Result [facility] IMG DIAGNOSTIC IMAGING ORDERA BLES Final Result * ECG Scan (02/02/2025) Result [facility] ECG ORDERABLES Final Result documented in this encounter Visit Diagnoses Diagnosis Stroke- Primary Unspecified cerebral artery occlusion with cerebral infarction Stenosis of left carotid artery Occlusion and stenosis of carotid artery without mention of cerebral infarction Dysarthria Aphasia Cerebrovascular accident (CVA) due to bilateral stenosis of middle cerebral arteries Carotid artery stenosis Occlusion and stenosis of carotid artery without mention of cerebral infarction Diabetes Type II or unspecified type diabetes mellitus without mention of complication, not stated as uncontrolled Hypertension Unspecified essential hypertension Hypercholesteremia Pure hypercholesterolemia Stenosis of left carotid artery Occlusion and stenosis of carotid artery without mention of cerebral infarction documented in this encounter Admitting Diagnoses Diagnosis TIA (transient ischemic attack) Unspecified transient cerebral ischemia Stroke Unspecified cerebral artery occlusion with cerebral infarction documented in this encounter Administered Medications Inactive Administered Medications - up to 3 most recent administrations Medication Order MAR Action Action Date Dose Rate Site acetaminophen (TYLENOL) 160 MG/5ML oral solution 500 mg 500 mg, Oral, Every 6 Hours PRN, Mild Pain, Headache, Fever, Starting on Fri02/02/25 at 1839, If given for fever, use fever parameter: fever greater than 100.4 F Based on patient request - if ordered for moderate or severe pain, provider allows for administration of a medication prescribed for a lower pain scale. Do not exceed 4 grams of acetaminophen in a 24 hr period. Max dose of 2gm for AST/ALT greater than 120 units/L. If given for pain, use the following pain scale: Mild Pain = Pain Score of 1-3, CPOT 1-2 Moderate Pain = Pain Score of 4-6, CPOT 3-4 Severe Pain = Pain Score of 7-10, CPOT 5-8 acetaminophen (TYLENOL) suppository 325 mg 325 mg, Rectal, Every 6 Hours PRN, Mild Pain, Headache, Fever, Starting on Fri02/02/25 at 1839, If given for fever, use fever parameter: fever greater than 100.4 F Based on patient request - if ordered for moderate or severe pain, provider allows for administration of a medication prescribed for a lower pain scale. Do not exceed 4 grams of acetaminophen in a 24 hr period. Max dose of 2gm for AST/ALT greater than 120 units/L. If given for pain, use the following pain scale: Mild Pain = Pain Score of 1-3, CPOT 1-2 Moderate Pain = Pain Score of 4-6, CPOT 3-4 Severe Pain = Pain Score of 7-10, CPOT 5-8 acetaminophen (TYLENOL) tablet 500 mg 500 mg, Oral, Every 6 Hours PRN, Mild Pain, Headache, Fever, Starting on Fri02/02/25 at 1839, If given for fever, use fever parameter: fever greater than 100.4 F Based on patient request - if ordered for moderate or severe pain, provider allows for administration of a medication prescribed for a lower pain scale. Do not exceed 4 grams of acetaminophen in a 24 hr period. Max dose of 2gm for AST/ALT greater than 120 units/L. If given for pain, use the following pain scale: Mild Pain = Pain Score of 1-3, CPOT 1-2 Moderate Pain = Pain Score of 4-6, CPOT 3-4 Severe Pain = Pain Score of 7-10, CPOT 5-8 Given 02/05/2025 4:45 AM EDT 500 mg aspirin chewable tablet 81 mg 81 mg, Oral, Daily, First dose on Evie 02/03/25 at 0900, If patient fails dysphagia, RI option MUST be given. Do not exceed 4 grams of aspirin in a 24 hr period. If given for pain, use the following pain scale: Mild Pain = Pain Score of 1-3, CPOT 1-2 Moderate Pain = Pain Score of 4-6, CPOT 3-4 Severe Pain = Pain Score of 7-10, CPOT 5-8 Given 02/05/2025 9:11 AM EDT 81 mg Given 02/04/2025 8:39 AM EDT 81 mg Given 02/03/2025 12:00 PM EDT 81 mg aspirin suppository 300 mg 300 mg, Rectal, Daily, First dose on Evie 02/03/25 at 0900, If patient fails dysphagia, RI option MUST be given. Do not exceed 4 grams of aspirin in a 24 hr period. If given for pain, use the following pain scale: Mild Pain = Pain Score of 1-3, CPOT 1-2 Moderate Pain = Pain Score of 4-6, CPOT 3-4 Severe Pain = Pain Score of 7-10, CPOT 5-8 atorvastatin (LIPITOR) tablet 80 mg 80 mg, Oral, Nightly, First dose on Fri02/02/25 at 2100, Avoid grapefruit juice. Given 02/04/2025 8:45 PM EDT 80 mg Given 02/03/2025 8:41 PM EDT 80 mg Given 02/02/2025 10:25 PM EDT 80 mg bisacodyl (DULCOLAX) EC tablet 5 mg 5 mg, Oral, Daily PRN, Constipation, Use if polyethylene glycol is ineffective, Starting on Fri02/02/25 at 1839, Use if no bowel movement after 12 hours. Swallow whole. Do not crush, split, or chew tablet. bisacodyl (DULCOLAX) suppository 10 mg 10 mg, Rectal, Daily PRN, Constipation, Use if bisacodyl oral is ineffective, Starting on Fri02/02/25 at 1839, Use if no bowel movement after 12 hours. Hold for diarrhea Calcium Replacement - Follow Nurse / BPA Driven Protocol Open Order & Select S Electrolyte Replacement Protocol Algorithm to View Details clopidogrel (PLAVIX) tablet 600 mg 600 mg, Oral, Daily, First dose on Fri02/04/25 at 0900 Given 02/04/2025 7:45 AM EDT 600 mg clopidogrel (PLAVIX) tablet 75 mg 75 mg, Oral, Daily, First dose on Fri02/03/25 at 0900 Given 02/03/2025 12:00 PM EDT 75 mg clopidogrel (PLAVIX) tablet 75 mg 75 mg, Oral, Daily, First dose on Fri02/04/25 at 1345 Given 02/05/2025 9:11 AM EDT 75 mg dextrose (D50W) (25 g/50 mL) IV injection 25 g 25 g, Intravenous, Every 15 Minutes PRN, Low Blood Sugar, Blood Sugar Less Than 70, Starting on Fri02/02/25 at 191, Blood sugar less than 70; patient has IV access - Unresponsive, NPO or Unable To Safely Swallow dextrose (GLUTOSE) oral gel 15 g 15 g, Oral, Every 15 Minutes PRN, Low Blood Sugar, Blood sugar less than 70, Starting on Fri02/02/25 at 1914, BS<70, Patient Alert, Is not NPO, Can safely swallow. glucagon (GLUCAGEN) injection 1 mg 1 mg, Intramuscular, Every 15 Minutes PRN, Low Blood Sugar, Blood Glucose Less Than 70, Starting on Fri02/02/25 at 191, Blood Glucose Less Than 70 - Patient Without IV Access - Unresponsive, NPO or Unable To Safely Swallow Reconstitute powder for injection by adding 1 mL of gaming department head-supplied sterile diluent or sterile water for injection to a vial containing 1 mg of the drug, to provide solutions containing 1 mg/mL. Shake vial gently to dissolve. Insulin Lispro (humaLOG) injection 2-7 Units 2-7 Units, Subcutaneous, 4 Times Daily Before Meals & Nightly, First dose on Fri02/02/25 at 2100, Correction Insulin - Low Dose - Total Insulin Dose Less Than 40 units/day (Lean, Elderly or Renal Patients) Blood Glucose 150-199 mg/dL - 2 units Blood Glucose 200-249 mg/dL - 3 units Blood Glucose 250-299 mg/dL - 4 units Blood Glucose 300-349 mg/dL - 5 units Blood Glucose 350-400 mg/dL - 6 units Blood Glucose Greater Than 400 mg/dL - 7 units & Call Provider ([facility]) Caution: Look alike/sound alike drug alert([facility]) Magnesium Standard Dose Replacement - Follow Nurse / BPA Driven Protocol Open Order & Select [facility] Electrolyte Replacement Protocol Algorithm to View Details mupirocin (BACTROBAN) 2 % nasal ointment 1 Application 1 Application, Each Nare, 2 Times Daily, First dose on Fri02/04/25 at 1800, For 5 days, Administer for 5 days, even if patient transferred out of critical care. MUPIROCIN APPLICATION: 1. Place patient's bed at 30 degrees, if tolerated. 2. Wash your hands with warm soapy water or use hand equipment operating engineer. 3. Open the tube of mupirocin 2%. 4. Squeeze about 0.5 g (blueberry-size) of mupirocin from the tube onto a sterile applicator or a cotton swab. 5. Apply the swab directly into nostril. Ensure coating of the sides of the nostril. 6. Repeat with second sterile applicator for other nostril. 7. Gently press the sides of the nostrils together and massage gently for 60 seconds. ([facility]) Given 02/05/2025 9:12 AM EDT 1 Application Given 02/04/2025 5:46 PM EDT 1 Application mycophenolate (CELLCEPT) capsule 500 mg 500 mg, Oral, 2 Times Daily, First dose on Fri02/02/25 at 2200, Take on an empty stomach Group 1 (Yellow) Hazardous Drug - See Handling Guide Given 02/05/2025 11:50 AM EDT 500 mg Given 02/04/2025 9:03 PM EDT 500 mg Given 02/03/2025 8:41 PM EDT 500 mg nitroglycerin (NITROSTAT) SL tablet 0.4 mg 0.4 mg, Sublingual, Every 5 Minutes PRN, Chest Pain, Starting on Fri02/04/25 at 1254, Notify Provider if Pain Unrelieved After 3 Doses May administer up to 3 doses per episode. Hold if SBP less than 100. Phosphorus Replacement - Follow Nurse / BPA Driven Protocol Open Order & Select [facility] Electrolyte Replacement Protocol Algorithm to View Details polyethylene glycol (MIRALAX) packet 17 g 17 g, Oral, Daily PRN, Constipation, Use if senna-docusate is ineffective, Starting on Fri02/02/25 at 1839, Use if no bowel movement after 12 hours. Mix in 6-8 ounces of water. Use 4-8 ounces of water, tea, or juice for each 17 gram dose. Potassium Replacement - Follow Nurse / BPA Driven Protocol Open Order & Select S Electrolyte Replacement Protocol Algorithm to View Details sennosides-docusate (PERICOLACE) 8.6-50 MG per tablet 2 tablet 2 tablet, Oral, 2 Times Daily PRN, Constipation, Starting on Fri02/02/25 at 1839, Start bowel management regimen if patient has not had a bowel movement after 12 hours. sodium chloride 0.9 % bolus 1,000 mL 1,000 mL, Intravenous, at 1,000 mL/hr, Administer over 1 Hours, Once, On Fri02/04/25 at 1300, For 1 dose New Bag 02/04/2025 12:42 PM EDT 1,000 mL 1000 mL/hr sodium chloride 0.9 % flush 10 mL 10 mL, Intravenous, Every 12 Hours Scheduled, First dose on Fri02/02/25 at 2100 Given 02/03/2025 8:52 PM EDT 10 mL sodium chloride 0.9 % flush 10 mL 10 mL, Intravenous, Every 12 Hours Scheduled, First dose on Fri02/02/25 at 2100 Given 02/05/2025 8:00 AM EDT 10 mL Given 02/04/2025 8:45 PM EDT 10 mL Given 02/03/2025 8:51 PM EDT 10 mL sodium chloride 0.9 % flush 10 mL 10 mL, Intravenous, As Needed, Line Care, Starting on Fri02/02/25 at 1838 sodium chloride 0.9 % infusion 40 mL 40 mL, Intravenous, at 100 mL/hr, As Needed, Line Care, Starting on Fri02/02/25 at 1838, Following administration of an IV intermittent medication, flush line with 40mL NS at 100mL/hr. documented in this encounter Active and Recently Administered Medications Times are shown in EDT. Scheduled Medication Order 02/03/2025 02/04/2025 02/05/2025 aspirin chewable tablet 81 mg(Linked Group 1) 81 mg, Oral, Daily, First dose on Evie 02/03/25 at 0900, If patient fails dysphagia, RI option MUST be given. Do not exceed 4 grams of aspirin in a 24 hr period. If given for pain, use the following pain scale: Mild Pain = Pain Score of 1-3, CPOT 1-2 Moderate Pain = Pain Score of 4-6, CPOT 3-4 Severe Pain = Pain Score of 7-10, CPOT 5-8 1200 (Given - Provider: Diana Zambrano RN) 0839 (Given - Provider: Diana Zambrano RN)1010 (JUL Hold - Provider: Automatic Transfer Provider - Reason: Unreviewed Transfer Orders)1658 (JUL Unhold - Provider: Hector Grijalva APRN) 09 (Given - Provider: Micky Fitch RN) aspirin suppository 300 mg(Linked Group 1) 300 mg, Rectal, Daily, First dose on Fri02/03/25 at 0900, If patient fails dysphagia, RI option MUST be given. Do not exceed 4 grams of aspirin in a 24 hr period. If given for pain, use the following pain scale: Mild Pain = Pain Score of 1-3, CPOT 1-2 Moderate Pain = Pain Score of 4-6, CPOT 3-4 Severe Pain = Pain Score of 7-10, CPOT 5-8 1200 (Not Given: See Alt - Provider: Diana Zambrano RN) 0839 (Not Given: See Alt - Provider: Diana Zambrano RN)1010 (JUL Hold - Provider: Automatic Transfer Provider - Reason: Unreviewed Transfer Orders)1658 (JUL Unhold - Provider: Hector Grijalva APRN) 09 (Not Given: See Alt - Provider: Micky Fitch RN) atorvastatin (LIPITOR) tablet 80 mg 80 mg, Oral, Nightly, First dose on Fri02/02/25 at 2100, Avoid grapefruit juice. 2040 (Given - Provider: Sara Bill RN) 1010 (JUL Hold - Provider: Automatic Transfer Provider - Reason: Unreviewed Transfer Orders)1658 (JUL Unhold - Provider: Hector Grijalva APRN)2044 (Given - Provider: Janet Barnett RN) bisoprolol (ZEBeta) tablet 2.5 mg 2.5 mg, Oral, Daily, First dose on Fri02/03/25 at 0900, Hold for SBP less than 100, DBP less than 60, or heart rate less than 50. If a dose is held, please contact the provider. Caution: Look alike/sound alike drug alert, On hold since Fri02/02/2025 at 2108 until manually unheld 0900 (Dose Auto Held) 0900 (Dose Auto Held) 0900 (Dose Auto Held)1813 (Unheld by provider - Provider: Automatic Discharge Provider) clopidogrel (PLAVIX) tablet 600 mg (CANCELED) 600 mg, Oral, Daily, First dose on Fri02/04/25 at 0900 0745 (Given - Provider: Diana Zambrano RN - Comment: Needs to be therapeutic for stenting)1010 (JUL Hold - Provider: Automatic Transfer Provider - Reason: Unreviewed Transfer Orders)1107 (JUL Unhold - Provider: Deja PierreD) clopidogrel (PLAVIX) tablet 75 mg (CANCELED) 75 mg, Oral, Daily, First dose on Fri02/03/25 at 0900 1200 (Given - Provider: Diana Zambrano RN) 0838 (Not Given - Provider: Diana Zambrano RN - Reason: See Provider Order)1010 (JUL Hold - Provider: Automatic Transfer Provider - Reason: Unreviewed Transfer Orders)1431 (JUL Unhold - Provider: Deja AlmonteD) clopidogrel (PLAVIX) tablet 75 mg 75 mg, Oral, Daily, First dose on Fri02/04/25 at 1345 1308 (Not Given - Provider: Cesar Ceballos RN - Reason: Other - Comment: given prior to transfer to unit) 0911 (Given - Provider: Micky Fitch RN) Insulin Lispro (humaLOG) injection 2-7 Units 2-7 Units, Subcutaneous, 4 Times Daily Before Meals & Nightly, First dose on Fri02/02/25 at 2100, Correction Insulin - Low Dose - Total Insulin Dose Less Than 40 units/day (Lean, Elderly or Renal Patients) Blood Glucose 150-199 mg/dL - 2 units Blood Glucose 200-249 mg/dL - 3 units Blood Glucose 250-299 mg/dL - 4 units Blood Glucose 300-349 mg/dL - 5 units Blood Glucose 350-400 mg/dL - 6 units Blood Glucose Greater Than 400 mg/dL - 7 units & Call Provider ([facility]) Caution: Look alike/sound alike drug alert([facility]) 0941 (Not Given - Provider: Diana Zambrano RN - Reason: Order parameters not met - Comment: [phone] (Not Given - Provider: Diana Zambrano RN - Reason: Order parameters not met)1758 (Not Given - Provider: Diana Zambrano RN - Reason: Order parameters not met)2022 (Not Given - Provider: Sara Blil RN - Reason: Order parameters not met - Comment: [phone] 0749 (Not Given - Provider: Diana Zambrano RN - Reason: Order parameters not met - Comment: [phone])1010 (MAR Hold - Provider: Automatic Transfer Provider - Reason: Unreviewed Transfer Orders)1130 (Dose Auto Held - Provider: Automatic Transfer Provider)1659 (MAR Unhold - Provider: Hector Grijalva, EXCELLENCE LEADER)1716 (Not Given - Provider: Cesar Ceballos RN - Reason: Order parameters not met)2043 (Not Given - Provider: Janet Barnett RN - Reason: Order parameters not met - Comment: BS [phone]) 0754 (Not Given - Provider: Micky Fitch RN - Reason: Order parameters not met)1143 (Not Given - Provider: Micky Fitch RN - Reason: Order parameters not met) isosorbide mononitrate (IMDUR) 24 hr tablet 15 mg 15 mg, Oral, Daily, First dose on Fri02/03/25 at 0900, Do not crush or chew the capsules or tablets. The drug may not work as designed if the capsule or tablet is crushed or chewed. Swallow whole., On hold since Fri02/02/2025 at 2108 until manually unheld 0900 (Dose Auto Held) 0900 (Dose Auto Held) 0900 (Dose Auto Held)1813 (Unheld by provider - Provider: Automatic Discharge Provider) mupirocin (BACTROBAN) 2 % nasal ointment 1 Application 1 Application, Each Nare, 2 Times Daily, First dose on Fri02/04/25 at 1800, For 5 days, Administer for 5 days, even if patient transferred out of critical care. MUPIROCIN APPLICATION: 1. Place patient's bed at 30 degrees, if tolerated. 2. Wash your hands with warm soapy water or use hand equipment operating engineer. 3. Open the tube of mupirocin 2%. 4. Squeeze about 0.5 g (blueberry-size) of mupirocin from the tube onto a sterile applicator or a cotton swab. 5. Apply the swab directly into nostril. Ensure coating of the sides of the nostril. 6. Repeat with second sterile applicator for other nostril. 7. Gently press the sides of the nostrils together and massage gently for 60 seconds. ([facility]) 1746 (Given - Provider: Cesar Ceballos, SHIRLEY) 0912 (Given - Provider: Micky Fitch, SHIRLEY) mycophenolate (CELLCEPT) capsule 500 mg 500 mg, Oral, 2 Times Daily, First dose on Fri02/02/25 at 2200, Take on an empty stomach Group 1 (Yellow) Hazardous Drug - See Handling Guide 0024 (Given - Provider: Saurabh Courtney, RN)1200 (Given - Provider: Diana Zambrano, SHIRLEY)2041 (Given - Provider: Sara Bill, SHIRLEY) 0839 (Not Given - Provider: Diana Zambrano RN - Reason: Hold For Procedure)1010 (MAR Hold - Provider: Automatic Transfer Provider - Reason: Unreviewed Transfer Orders)1659 (MAR Unhold - Provider: Hector Grijalva, EXCELLENCE LEADER)2103 (Given - Provider: Janet Barnett, SHIRLEY) 1150 (Given - Provider: Micky Fitch, SHIRLEY) sodium chloride 0.9 % bolus 1,000 mL (COMPLETED) 1,000 mL, Intravenous, at 1,000 mL/hr, Administer over 1 Hours, Once, On Fri02/04/25 at 1300, For 1 dose 1242 (New Bag - Provider: Cesar Ceballos RN) sodium chloride 0.9 % flush 10 mL (CANCELED) 10 mL, Intravenous, Every 12 Hours Scheduled, First dose on Fri02/02/25 at 2100 0030 (Canceled Entry - Provider: Saurabh Courtney RN)1201 (Canceled Entry - Provider: Diana Zambrano RN)2052 (Given - Provider: Sara Bill RN) 1010 (MAR Hold - Provider: Automatic Transfer Provider - Reason: Unreviewed Transfer Orders)1240 (Not Given - Provider: Cesar Ceballos RN - Reason: Other)1432 (MAR Unhold - Provider: Lisa Greene, DejaD) sodium chloride 0.9 % flush 10 mL 10 mL, Intravenous, Every 12 Hours Scheduled, First dose on Fri02/02/25 at 2100 0025 (Given - Provider: Saurabh Courtney, RN)1201 (Given - Provider: Diana Zambrano, RN)2051 (Given - Provider: Sara Bill, SHIRLEY) 0843 (Canceled Entry - Provider: Diana Zambrano, RN)1010 (MAR Hold - Provider: Automatic Transfer Provider - Reason: Unreviewed Transfer Orders)1659 (MAR Unhold - Provider: Hector Grijalva APRN)2045 (Given - Provider: Janet Barnett, SHIRLEY) 0800 (Given - Provider: Micky Fitch, SHIRLEY) Continuous Medication Order 02/03/2025 02/04/2025 02/05/2025 phenylephrine (NINOSKA-SYNEPHRINE) 50 mg in sodium chloride 0.9 % 250 mL infusion 0.5-3 mcg/kg/min 68 kg (10.2-61.2 mL/hr), Intravenous, Titrated, Starting on Fri02/04/25 at 1315, For 1 day, Initiate infusion at 0.5 mcg/kg/min & titrate up or down by 0.3 - 0.6 mcg/kg/min every 5 minutes to use the lowest dose possible to maintain SBP greater than or equal To 90 mm Hg. Maximum Dose = 3 mcg/kg/min. Contact provider if unable to maintain SBP greater than or equal To 90 mm Hg on maximum dose or if MAP is greater Than 95 mm Hg. Once SBP target achieved, obtain vitals a minimum of every 30 minutes. ([facility]) Central line preferred, if unavailable use large bore IV access with frequent nurse monitoring of IV site. 1257 (Not Given - Provider: Cesar Ceballos RN - Reason: Order parameters not met) PRN Medication Order 02/03/2025 02/04/2025 02/05/2025 acetaminophen (TYLENOL) 160 MG/5ML oral solution 500 mg(Linked Group 2) 500 mg, Oral, Every 6 Hours PRN, Mild Pain, Headache, Fever, Starting on Fri02/02/25 at 1839, If given for fever, use fever parameter: fever greater than 100.4 F Based on patient request - if ordered for moderate or severe pain, provider allows for administration of a medication prescribed for a lower pain scale. Do not exceed 4 grams of acetaminophen in a 24 hr period. Max dose of 2gm for AST/ALT greater than 120 units/L. If given for pain, use the following pain scale: Mild Pain = Pain Score of 1-3, CPOT 1-2 Moderate Pain = Pain Score of 4-6, CPOT 3-4 Severe Pain = Pain Score of 7-10, CPOT 5-8 1010 (JUL Hold - Provider: Automatic Transfer Provider - Reason: Unreviewed Transfer Orders)165 (JUL Unhold - Provider: Hector Grijalva APRN) 0445 (Not Given: See Alt - Provider: Janet Barnett RN)0456 (Not Given - Provider: Janet Barnett RN - Reason: Other (Comment Required) - Comment: other form given) acetaminophen (TYLENOL) suppository 325 mg(Linked Group 2) 325 mg, Rectal, Every 6 Hours PRN, Mild Pain, Headache, Fever, Starting on Fri02/02/25 at 1839, If given for fever, use fever parameter: fever greater than 100.4 F Based on patient request - if ordered for moderate or severe pain, provider allows for administration of a medication prescribed for a lower pain scale. Do not exceed 4 grams of acetaminophen in a 24 hr period. Max dose of 2gm for AST/ALT greater than 120 units/L. If given for pain, use the following pain scale: Mild Pain = Pain Score of 1-3, CPOT 1-2 Moderate Pain = Pain Score of 4-6, CPOT 3-4 Severe Pain = Pain Score of 7-10, CPOT 5-8 1010 (JUL Hold - Provider: Automatic Transfer Provider - Reason: Unreviewed Transfer Orders)1658 (JUL Unhold - Provider: Hector Grijalva APRN) 0445 (Not Given: See Alt - Provider: Janet Barnett RN)0456 (Not Given: See Alt - Provider: Janet Barnett RN) acetaminophen (TYLENOL) tablet 500 mg(Linked Group 2) 500 mg, Oral, Every 6 Hours PRN, Mild Pain, Headache, Fever, Starting on Fri02/02/25 at 1839, If given for fever, use fever parameter: fever greater than 100.4 F Based on patient request - if ordered for moderate or severe pain, provider allows for administration of a medication prescribed for a lower pain scale. Do not exceed 4 grams of acetaminophen in a 24 hr period. Max dose of 2gm for AST/ALT greater than 120 units/L. If given for pain, use the following pain scale: Mild Pain = Pain Score of 1-3, CPOT 1-2 Moderate Pain = Pain Score of 4-6, CPOT 3-4 Severe Pain = Pain Score of 7-10, CPOT 5-8 1010 (JUL Hold - Provider: Automatic Transfer Provider - Reason: Unreviewed Transfer Orders)1659 (MAR Unhold - Provider: Hector Grijalva APRN) 0445 (Given - Provider: Janet Barnett, SHIRLEY)0456 (Not Given: See Alt - Provider: Janet Barnett RN) bisacodyl (DULCOLAX) EC tablet 5 mg(Linked Group 3) 5 mg, Oral, Daily PRN, Constipation, Use if polyethylene glycol is ineffective, Starting on Fri02/02/25 at 1839, Use if no bowel movement after 12 hours. Swallow whole. Do not crush, split, or chew tablet. 1010 (JUL Hold - Provider: Automatic Transfer Provider - Reason: Unreviewed Transfer Orders)165 (JUL Unhold - Provider: Hector Grijalva APRN) bisacodyl (DULCOLAX) suppository 10 mg(Linked Group 3) 10 mg, Rectal, Daily PRN, Constipation, Use if bisacodyl oral is ineffective, Starting on Fri02/02/25 at 1839, Use if no bowel movement after 12 hours. Hold for diarrhea 1010 ([facility] Hold - Provider: Automatic Transfer Provider - Reason: Unreviewed Transfer Orders)165 ([facility] Unhold - Provider: Hector Grijalva APRN) Calcium Replacement - Follow Nurse / BPA Driven Protocol Open Order & Select S Electrolyte Replacement Protocol Algorithm to View Details 1010 (JUL Hold - Provider: Automatic Transfer Provider - Reason: Unreviewed Transfer Orders)165 (JUL Unhold - Provider: Hector Grijalva APRN) dextrose (D50W) (25 g/50 mL) IV injection 25 g 25 g, Intravenous, Every 15 Minutes PRN, Low Blood Sugar, Blood Sugar Less Than 70, Starting on Fri02/02/25 at 1914, Blood sugar less than 70; patient has IV access - Unresponsive, NPO or Unable To Safely Swallow 1010 ([facility] Hold - Provider: Automatic Transfer Provider - Reason: Unreviewed Transfer Orders)165 ([facility] Unhold - Provider: Hector Grijalva APRN) dextrose (GLUTOSE) oral gel 15 g 15 g, Oral, Every 15 Minutes PRN, Low Blood Sugar, Blood sugar less than 70, Starting on Fri02/02/25 at 1914, BS<70, Patient Alert, Is not NPO, Can safely swallow. 1010 ([facility] Hold - Provider: Automatic Transfer Provider - Reason: Unreviewed Transfer Orders)165 ([facility] Unhold - Provider: Hector Grijalva APRN) glucagon (GLUCAGEN) injection 1 mg 1 mg, Intramuscular, Every 15 Minutes PRN, Low Blood Sugar, Blood Glucose Less Than 70, Starting on Fri02/02/25 at 1914, Blood Glucose Less Than 70 - Patient Without IV Access - Unresponsive, NPO or Unable To Safely Swallow Reconstitute powder for injection by adding 1 mL of gaming department head-supplied sterile diluent or sterile water for injection to a vial containing 1 mg of the drug, to provide solutions containing 1 mg/mL. Shake vial gently to dissolve. 1010 ([facility] Hold - Provider: Automatic Transfer Provider - Reason: Unreviewed Transfer Orders)1658 ([facility] Unhold - Provider: Hector Grijalva APRN) heparin (porcine) injection (CANCELED) Code / Trauma / Sedation Medication, Starting on Fri02/04/25 at 1043 1043 (Given - Provider: Mason Desouza MD)1056 (Given - Provider: Donovan Hong RN) iodixanol (VISIPAQUE) 320 MG/ML injection (CANCELED) Code / Trauma / Sedation Medication, Starting on Fri02/04/25 at 1135 1135 (Given - Provider: Mason Desouza MD) lidocaine PF 1% (XYLOCAINE) injection (CANCELED) Code / Trauma / Sedation Medication, Starting on Fri02/04/25 at 1034 1034 (Given - Provider: Mason Desouza MD) Magnesium Standard Dose Replacement - Follow Nurse / BPA Driven Protocol Open Order & Select [facility] Electrolyte Replacement Protocol Algorithm to View Details 1010 ([facility] Hold - Provider: Automatic Transfer Provider - Reason: Unreviewed Transfer Orders)1658 ([facility] Unhold - Provider: Hector Grijalva APRN) niCARdipine (CARDENE) syringe (CANCELED) Code / Trauma / Sedation Medication, Starting on Fri02/04/25 at 1043 1043 (Given - Provider: Mason Desouza MD) nitroglycerin (NITROSTAT) SL tablet 0.4 mg 0.4 mg, Sublingual, Every 5 Minutes PRN, Chest Pain, Starting on Fri02/04/25 at 1254, Notify Provider if Pain Unrelieved After 3 Doses May administer up to 3 doses per episode. Hold if SBP less than 100. nitroglycerin 100 mcg/mL in D5W syringe (CANCELED) Code / Trauma / Sedation Medication, Starting on Fri02/04/25 at 1043 1043 (Given - Provider: Mason Desouza MD) Phosphorus Replacement - Follow Nurse / BPA Driven Protocol Open Order & Select [facility] Electrolyte Replacement Protocol Algorithm to View Details 1010 ([facility] Hold - Provider: Automatic Transfer Provider - Reason: Unreviewed Transfer Orders)165 ([facility] Unhold - Provider: Hector Grijalva APRN) polyethylene glycol (MIRALAX) packet 17 g(Linked Group 3) 17 g, Oral, Daily PRN, Constipation, Use if senna-docusate is ineffective, Starting on Fri02/02/25 at 1839, Use if no bowel movement after 12 hours. Mix in 6-8 ounces of water. Use 4-8 ounces of water, tea, or juice for each 17 gram dose. 1010 ([facility] Hold - Provider: Automatic Transfer Provider - Reason: Unreviewed Transfer Orders)165 ([facility] Unhold - Provider: Hector Grijalva APRN) Potassium Replacement - Follow Nurse / BPA Driven Protocol Open Order & Select [facility] Electrolyte Replacement Protocol Algorithm to View Details sennosides-docusate (PERICOLACE) 8.6-50 MG per tablet 2 tablet(Linked Group 3) 2 tablet, Oral, 2 Times Daily PRN, Constipation, Starting on Fri02/02/25 at 1839, Start bowel management regimen if patient has not had a bowel movement after 12 hours. 1010 ([facility] Hold - Provider: Automatic Transfer Provider - Reason: Unreviewed Transfer Orders)165 ([facility] Unhold - Provider: Hector Grijalva APRN) sodium chloride 0.9 % flush 10 mL 10 mL, Intravenous, As Needed, Line Care, Starting on Fri02/02/25 at 1838 1010 ([facility] Hold - Provider: Automatic Transfer Provider - Reason: Unreviewed Transfer Orders)165 ([facility] Unhold - Provider: Hector Grijalva APRN) sodium chloride 0.9 % infusion 40 mL 40 mL, Intravenous, at 100 mL/hr, As Needed, Line Care, Starting on Fri02/02/25 at 1838, Following administration of an IV intermittent medication, flush line with 40mL NS at 100mL/hr. 1010 ([facility] Hold - Provider: Automatic Transfer Provider - Reason: Unreviewed Transfer Orders)1659 ([facility] Unhold - Provider: Hector Grijalva APRN) Linked Groups Order Group 1: aspirin chewable tablet 81 mgJump to med 81 mg, Oral, Daily, First dose on Evie 02/03/25 at 0900, If patient fails dysphagia, RI option MUST be given. Do not exceed 4 grams of aspirin in a 24 hr period. If given for pain, use the following pain scale: Mild Pain = Pain Score of 1-3, CPOT 1-2 Moderate Pain = Pain Score of 4-6, CPOT 3-4 Severe Pain = Pain Score of 7-10, CPOT 5-8 Or aspirin suppository 300 mgJump to med 300 mg, Rectal, Daily, First dose on Evie 02/03/25 at 0900, If patient fails dysphagia, RI option MUST be given. Do not exceed 4 grams of aspirin in a 24 hr period. If given for pain, use the following pain scale: Mild Pain = Pain Score of 1-3, CPOT 1-2 Moderate Pain = Pain Score of 4-6, CPOT 3-4 Severe Pain = Pain Score of 7-10, CPOT 5-8 Group 2: acetaminophen (TYLENOL) tablet 500 mgJump to med 500 mg, Oral, Every 6 Hours PRN, Mild Pain, Headache, Fever, Starting on Fri02/02/25 at 1839, If given for fever, use fever parameter: fever greater than 100.4 F Based on patient request - if ordered for moderate or severe pain, provider allows for administration of a medication prescribed for a lower pain scale. Do not exceed 4 grams of acetaminophen in a 24 hr period. Max dose of 2gm for AST/ALT greater than 120 units/L. If given for pain, use the following pain scale: Mild Pain = Pain Score of 1-3, CPOT 1-2 Moderate Pain = Pain Score of 4-6, CPOT 3-4 Severe Pain = Pain Score of 7-10, CPOT 5-8 Or acetaminophen (TYLENOL) 160 MG/5ML oral solution 500 mgJump to med 500 mg, Oral, Every 6 Hours PRN, Mild Pain, Headache, Fever, Starting on Fri02/02/25 at 183, If given for fever, use fever parameter: fever greater than 100.4 F Based on patient request - if ordered for moderate or severe pain, provider allows for administration of a medication prescribed for a lower pain scale. Do not exceed 4 grams of acetaminophen in a 24 hr period. Max dose of 2gm for AST/ALT greater than 120 units/L. If given for pain, use the following pain scale: Mild Pain = Pain Score of 1-3, CPOT 1-2 Moderate Pain = Pain Score of 4-6, CPOT 3-4 Severe Pain = Pain Score of 7-10, CPOT 5-8 Or acetaminophen (TYLENOL) suppository 325 mgJump to med 325 mg, Rectal, Every 6 Hours PRN, Mild Pain, Headache, Fever, Starting on Fri02/02/25 at 183, If given for fever, use fever parameter: fever greater than 100.4 F Based on patient request - if ordered for moderate or severe pain, provider allows for administration of a medication prescribed for a lower pain scale. Do not exceed 4 grams of acetaminophen in a 24 hr period. Max dose of 2gm for AST/ALT greater than 120 units/L. If given for pain, use the following pain scale: Mild Pain = Pain Score of 1-3, CPOT 1-2 Moderate Pain = Pain Score of 4-6, CPOT 3-4 Severe Pain = Pain Score of 7-10, CPOT 5-8 Group 3: sennosides-docusate (PERICOLACE) 8.6-50 MG per tablet 2 tabletJump to med 2 tablet, Oral, 2 Times Daily PRN, Constipation, Starting on Fri02/02/25 at 1839, Start bowel management regimen if patient has not had a bowel movement after 12 hours. And polyethylene glycol (MIRALAX) packet 17 gJump to med 17 g, Oral, Daily PRN, Constipation, Use if senna-docusate is ineffective, Starting on Fri02/02/25 at 1839, Use if no bowel movement after 12 hours. Mix in 6-8 ounces of water. Use 4-8 ounces of water, tea, or juice for each 17 gram dose. And bisacodyl (DULCOLAX) EC tablet 5 mgJump to med 5 mg, Oral, Daily PRN, Constipation, Use if polyethylene glycol is ineffective, Starting on Fri02/02/25 at 183, Use if no bowel movement after 12 hours. Swallow whole. Do not crush, split, or chew tablet. And bisacodyl (DULCOLAX) suppository 10 mgJump to med 10 mg, Rectal, Daily PRN, Constipation, Use if bisacodyl oral is ineffective, Starting on Fri02/02/25 at 1839, Use if no bowel movement after 12 hours. Hold for diarrhea documented in this encounter Care Teams [employer] Relationship Specialty Start Date End Date Janet Gardner APRN [address] [place] [address] PCP - General Internal Medicine 02/03/25 documented as of this encounter
--- OUTSIDE RECORDS SUMMARY | 2025-02-04 09:25 | XMS_ITS | Encounter Summary ---
[facility] Address [address] [place] [id number] Care Team Providers Care Product Safety Engineer Name Role Phone Jean-Claude Janet TRAORE Primary Care Provider Reason for Visit * Auth/Cert Specialty Diagnoses / Procedures Referred By Christopher t Referred To Contact Diagnoses Cerebrovascular Accident (CVA) Referral ID Status Reason Start Date Expiration Date Visits Re quested Visits Authorized [id number] 1 1 Encounter Details Date Type Department Care Team (Late st Contact Info) Description 02/04/2025 9:25 AM EDT - 02/04/2025 11:25 AM EDT Surgery [facility] [address] [place] [address] Mason Desouza MD [address] [facility] [address] [place] [address] Left Carotid Stent [86158 (CPT )] Social History Tobacco Use Types Packs/Day Years Used Date Smoking Tobacco: Never Alcohol Use Standard Drinks/Week Comments Never 0 (1 standard drink = 0.6 oz pur e alcohol) [facility] Utilities Answer Date Recorded In the past 12 months has Diabetica electric, gas, oil, or water company threatened [...] GED or equivalent No 02/03/2025 Preferred Language Citizen Of [place] 02/03/2025 Sex and Gender Information Value Date Recorded Sex Assigned at Not on file Legal Sex Male 9:33 AM EDT Gender Identity Not on file Sexual Orientation Not on file documented as of this encounter Last Filed Vital Signs Vital Sign Reading Time Taken Comments Blood Pressure 101/58 02/04/2025 11:15 AM EDT Pulse 54 02/04/2025 11:15 AM EDT Temperature 36.8 C (98.3 F) 02/04/2025 7:35 AM EDT Respiratory Rate 16 02/04/2025 11:15 AM EDT Oxygen Saturation 98% 02/04/2025 11:15 AM EDT Inhaled Oxygen Concentration - - Weight 68 kg (150 lb) 02/03/2025 11:00 AM EDT Height 157.5 cm (5' 2 ) 02/03/2025 11:00 AM EDT Body Mass Index 27.44 02/03/2025 11:00 AM EDT documented in this encounter Functional Status * Question Answer Date of Assessment Author 1. Wish to be (Past 1 Month) No 8:30 PM EDT China Cardoso RN 2. Non-Specific Active Suici mitzi Thoughts (Past 1 Month) No 02/02/2025 8:30 PM EDT Eduard Cardoso RN * Calculated C-SSRS Risk Score (Lifetime/Recent) Answer Date of Assessment Author No Risk Indicated 02/02/2025 8:30 PM EDT China Fan RN * [place] Suicide Severity Rating Scale (Screener/Recent Self-Report) Question Answer Date of Assessment Author 6. Suicidal Behavior (Lifetime) No 8:30 PM EDT China Cardoso RN documented as of this encounter Discharge Summaries * Hector Grijalva APRN - 02/05/2025 12:56 PM EDT DISCHARGE SUMMARY Patient name: Derrick Roach CSN: [id number] : 1950 Date of Admission: 02/02/2025 Date [...] Iniguez MD 56:05 AM EDT Workstation ID: [id number] History of Present Illness: Derrick Roach is a 75 y.o. male with known medical diagnoses of essential hypertension, hyperlipidemia, diabetes mellitus type 2, CAD, history of right hemispheric stroke (data deficient, reported residual left-sided weakness), and history of TIA who presented to [facility] today for further evaluation of speech difficulty which his noted at approximately 1200 today. Perreport when she left the house for work 0800 he was in his normal state of health and when she called him on her lunch break she noted that he had nonsensical speech. [facility] Stroke team was notified andrecommended loading with aspirin 325 mg and Plavix 300 mg prior to transfer as well as received a normal saline fluid bolus to achieve SBP >120. Patient was transferred to [facility] for higher level of care. Patient [...] Case management has set up HH for SN/PT/OT/HEAVY DUTY TRUCK MECHANIC It has been determined by all primary [...] treatment after discharge. Follow-up provider: JANET GARDNER [[id number]] Reason/Clinical Findings: stroke Describe mobility limitations that make leaving home difficult: imparied functional ability with speech difficulty Nursing/Therapeutic Services Requested: Snf Physical Therapy Occupational Therapy Speech Therapy assisted orders: Cardiopulmonary assessments Neurovascular assessments PT orders: Home safety assessment Occupational orders: Home safety assessment HEAVY DUTY TRUCK MECHANIC orders: Dysphagia therapy Articulation Cognition Frequency: 1 [...] User Context 02/02/20252108 CPR (Attempt to Resuscitate) [id number] Beckie Hsu MD Inpatient Question Answer Code Status (Patient has no pulse and is not breathing) CPR (Attempt to Resuscitate) Medical Interventions (Patient has pulse or is breathing) Full Support Level Of Support Discussed With Patient Hector Grijalva, MSN, CUSTOMER PRICING MANAGER, [facility] Pulmonary and Critical Care Medicine 02/05/25 Time: [...] * Carotid Angioplasty With Stent Care After Kkdg-ku-Cafp (Citizen Of [place]) * Stroke Prevention Oplw-og-Hvbk (Citizen [place]) documented in this encounter Medications at Time [...] of this encounter Progress Notes * Estrella Hsu APRN - 02/05/2025 7:36 AM EDT Images from the original note were not included. Stroke Progress Note Chief Complaint: Speech difficulty Subjective Subjective Subjective: No acute events overnight. Patient has had some improvement in his blood pressure, SBP is [id number], he remains asymptomatic. Neurologically he remains intact. [...] Iniguez MD 56:05 AM EDT Workstation ID: [id number] CTA head/neck (OSH) with significant stenosis of [...] and history of TIA who presented to [facility] on 02/02 for further evaluation of [...] to place a carotid stent today. Antiplatelet COAL CAGER: ASA 81 mg Anticoagulant COAL CAGER: None Acute left hemispheric stroke, etiology symptomatic [...] HH at discharge however given speech difficulties HEAVY DUTY TRUCK MECHANIC recommends IRF, CM following -Stroke clinic follow-up [...] to his follow-up appointment. Estrella Hsu MSN, CUSTOMER PRICING MANAGER, AGACNP-BC, AN- Stroke Neurology * Hector Grijalva [...] social history were reviewed and updated in Epic as appropriate. Objective Infusions: Medications: [Transfer Hold] [...] chronic left sided weakness that presented to [facility] with acute expressive aphasia, and ? ILD [...] insulin for T2DM Continue Cellcept. Follows at [facility] for ? ILD. PT/OT following AM labs DVT Prophylaxis: SCDs Time spent: 38 minutes Plan of care and goals reviewed with multidisciplinary/antibiotic stewardship team during rounds. I discussed the patient's findings and my recommendations with patient, family, and nursing staff Hector Grijalva, MSN, CUSTOMER PRICING MANAGER, [facility]- Pulmonary and Critical Care Medicine * Mason [...] P2 Y12of 180. Patient is brought to [facility] here for a stent Stroke Carotid artery [...] dyspnea on exertion and cardiac history * Shadi Estrellaanders Condon APRN - 02/04/2025 9:38 AM EDT Images from the original note were not included. Stroke Progress Note Chief Complaint: Speech difficulty Subjective Subjective Subjective: No acute events overnight. Patient just returned from [facility] where he had successful placement ofa left [...] Iniguez MD 56:05 AM EDT Workstation ID: [id number] CTA head/neck (OSH) with significant stenosis of [...] and history of TIA who presented to [facility] on 02/02 for further evaluation of [...] to place a carotid stent today. Antiplatelet COAL CAGER: ASA 81 mg Anticoagulant COAL CAGER: None Acute left hemispheric stroke, etiology symptomatic [...] HH at discharge however given speech difficulties HEAVY DUTY TRUCK MECHANIC recommends IRF, CM following -Stroke clinic follow-up [...] any questions or concerns. Estrella Hsu MSN, CUSTOMER PRICING MANAGER, AGACNP-BC, AN- Stroke Neurology * Ruddy Monteiro, - 02/04/2025 8:33 AM EDT Images from the original note were not included. [facility] Medicine Services PROGRESS NOTE Patient Name: Derrick [...] MD 02/03/2025 6:05 AM EDT Workstation ID: [id number] CT Outside Head Result Date: 02/02/2025 This [...] weakness, carotid arterial disease, who presented to [facility] w/ acute expressive aphasia, he was loaded w/ ASA and Plavix and transferred to [facility] for stroke eval; MRI showed small areas of acute cortical infarct in the LT frotal and temporal lobes w/o hemorrhage Assessment/Plan Acute LT frontal and temporal lobe strokes Carotid arterial disease Hx RT hemispheric stroke, Hx TIA -ASA, plavix, statin -TTEw/ normal EF -CUS showed 50-69% LT ICA stenosis -PT/OT/HEAVY DUTY TRUCK MECHANIC -stroke neuro following, consulted NSGY and pt [...] from the original note were not included. [facility] Medicine Services PROGRESS NOTE Patient Name: Derrick [...] MD 02/03/2025 6:05 AM EDT Workstation ID: [id number] CT Outside Head Result Date: 02/02/2025 This [...] weakness, carotid arterial disease, who presented to [facility] w/ acute expressive aphasia, he was loaded w/ ASA and Plavix and transferred to [facility] for stroke eval; MRI showed small areas of acute cortical infarct in the LT frotal and temporal lobes w/o hemorrhage The following problems are new to me today Assessment/Plan Acute LT frontal and temporal lobe strokes Carotid arterial disease Hx RT hemispheric stroke, Hx TIA -ASA, plavix, statin -TTE and carotid US pending -PT/OT/HEAVY DUTY TRUCK MECHANIC -stroke neuro eval pending CAD/HTN/HLD - asa, [...] intact throughout. 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 He is okay to resume COAL CAGER statin. Long-term bloodpressure goal is less than 130/80. Stroke service will continue to follow. Plan: -Continue dual antiplatelet therapy with aspirin 81 mg daily and clopidogrel 75 mg daily for 90 days, followed by aspirin 81 mg daily monotherapy thereafter - Okay to resume COAL CAGER atorvastatin 10 mg daily -LDL currently 52 [...] or concerns Karlo Lawrence MD Vascular Neurologist [facility] documented in this encounter H&P Notes * Beckie Hsu MD - 02/02/2025 7:09 PM EDT Images from the original note were not included. [facility] Medicine Services HISTORY AND PHYSICAL Patient Name: [...] and history of TIA who presented to [facility] today for further evaluation of speech [...] achieve SBP >120. Patient was transferred to [facility] for higher level of care. Patient [...] and history of TIA who presented to [facility] today for further evaluation of speech [...] to radiology to scanned into [facility] -MRI brain without contrast -TTE and CUS -A1c and lipid panel in AM -Meds: DAPT; loaded with ASA 325mg and Plavix 300mg COAL CAGER -Activity as tolerated, fall risk precautions -PT/OT/HEAVY DUTY TRUCK MECHANIC evaluation Essential hypertension -Allow autoregulation of blood [...] discharge date/ time has not been documented. Beckie Hsu MD 02/02/25 documented in this encounter Consult Notes * [...] Eloise Castillo RN 02/04/25 09:57 EDT * Mason Desouza MD - 02/03/2025 4:19 PM EDT [...] and history of TIA who presented to [facility] today for further evaluation of speech [...] education today. We will follow. Please call [phone] for interval needs. Thank you. Electronically signed by: Eloise Castillo RN 02/03/25 12:07 EDT * Estrella Hsu APRN - 02/02/2025 6:26 PM EDT Stroke Consult Note Patient Name: Derrick Roach Age: 75 y.o. Sex: male : 1950 Primary Care Physician: No primary care provider on file. Referring Physician: Dr. Luke TIME STROKE TEAM CALLED: 1405 EST [facility] EST TIME PATIENT SEEN: 183 EST Handedness: Right Race: Chief Complaint/Reason for Consultation: Aphasia and dysarthria HPI: Mr. Roach is a 75-year-old male with known medical diagnoses of essential hypertension, hyperlipidemia, diabetes mellitus type 2, CAD, history of right hemispheric stroke (data deficient, reported residual left-sided weakness), and history of TIA who presented to [facility] today for further evaluation of speech [...] facility is 167/93. Last Known Normal Date/Time: 829 EST Review of Systems Unable to perform [...] 2 (Two) Times a Day With Meals. Rome Sutherland MD BP: ()/() Arterial Line BP: ()/() Neurological [...] encounter. PRNs- Functional Status Prior to Current Stroke/[place] Score: 0 NIH Stroke Scale Time: 1830 EST Person Administering Scale: Estrella Hsu APRN 1a Level of consciousness: 0=alert; keenly responsive [...] the head without contrast (OSH, reviewed via Zonoff mp) with chronic white matter disease, no evidence of hemorrhage. Questionable area of hypodensity in right basal ganglia, could represent chronic infarct. CTA head/neck (OSH, reviewed via Zonoff mp) with bilateral carotid atherosclerotic disease (left [...] and history of TIA who presented to [facility] today for further ev aluation of [...] the hospital service for further workup. Antiplatelet COAL CAGER: ASA 81 mg Anticoagulant COAL CAGER: None Mixed aphasia and dysarthria, etiology suspected TIA/CVA 2/2 symptomatic carotid stenosis History of right hemispheric stroke and history of TIA LICA stenosis -TIA/CVA order set without thrombolytic therapy has been initiated -NPO until bedside nursing dysphagia screen completed -Disc from OSH has been taken to radiology to scanned into [facility] -MRI brain without contrast -TTE and CUS -A1c and lipid panel in AM -Meds: DAPT; loaded with ASA 325mg and Plavix 300mg COAL CAGER -Activity as tolerated, fall risk precautions -PT/OT/HEAVY DUTY TRUCK MECHANIC evaluation 2. Essential hypertension -Allow autoregulation of [...] DC home w/ 16/12 assist and OP OT/PT/HEAVY DUTY TRUCK MECHANIC services. Anticipated Discharge Disposition (OT): home with 16/12 care, home with outpatient therapy services * Janet Barnett RN - 02/05/2025 6:26 AM EDT Goal Outcome Evaluation: NIH 4. PRN Tylenol for neck pain. Head dressing changed. UOP 450mL. * Jessica Carver, MS CCC-HEAVY DUTY TRUCK MECHANIC - 02/03/2025 4:29 PM EDT Goal Outcome Evaluation: Plan of Care Reviewed With: patient, family Anticipated Discharge Disposition (HEAVY DUTY TRUCK MECHANIC): inpatient rehabilitation facility HEAVY DUTY TRUCK MECHANIC Diagnosis: moderate, aphasia, mild, dysarthria (02/03/25 1125) * Rohini Lala, PT - 02/03/2025 8:26 AM EDT Goal Outcome Evaluation: Plan of Care Reviewed With: spouse, patient Outcome Evaluation: PT PRESENTS LIKELY CLOSE TO BASELINE WITH FUNCTIONAL MOBILITY BUT WILL BENEFIT FROM INPT P.T. TO MITIGATE HOSPITAL ASSOCIATED WEAKNESS, IMPROVE SAFETY AND SEQUENCING WITH MOBILITY, AND DETERMINE APPROPRIATE A.D. FOR D/C. PT USED ROLLATOR AT HOME COAL CAGER. HAD DIFFICULTY NEGOTIATING TURNS WITH REG R [...] to address deficits, Recommend home with A critical access hospital. Anticipated Discharge Disposition (OT): (P) home [...] Lola Jones OTR/L 02/03/25 10:11AM. * Saurabh Courtney, SHIRLEY - 02/03/2025 7:28 AM EDT Goal Outcome [...] surgical history. General Information Row Name 02/05/25 1331 OT Time and Intention Document Type re-evaluation Simultaneous filing. User may be unaware of other data. -CS Mode of Treatment occupational therapy Simultaneous filing. User may be unaware of other data. -CS Row Name 02/05/25 1331 General Information Patient Profile Reviewed yes Simultaneous [...] of other data. -CS Row Name 02/05/25 1334 Living Environment Current Living Arrangements -- see IE -CS Row Name 02/05/25 1330 Cognition Orientation Status (Cognition) oriented x 3;verbal cues/prompts needed for orientation;situation;time Simultaneous filing. User may be unaware of other data. -CS Row Name 02/05/25 4604 Safety Issues/Impairments Affecting Functional Mobility Impairments Affecting Function (Mobility) balance;endurance/activity tolerance;strength;cognition Simultaneous filing. User may be unaware of other data. -CS Cognitive Impairments, Mobility Safety/Performance attention;insight into deficits/self-awareness;sequencing abilities Simultaneous filing. User may be unaware of other data. -CS User Hinton (r) = Recorded By, (t) = Taken By, (c) = Cosigned By Initials Name Provider Type CS Brittany Balderas OT Occupational Therapist Mobility/ADL's Row Name 02/05/25 133 Bed Mobility Bed Mobility supine-sit - Supine-Sit [place] (Bed Mobility) contact guard;verbal cues -CS Assistive Device (Bed Mobility) bed rails;head of bed elevated - Row Name 02/05/251338 Transfers Transfers sit-stand transfer;stand-sit transfer;toilet transfer - Row Name 02/05/251338 Sit-Stand Transfer Sit-Stand [place] (Transfers) contact guard;verbal cues -CS Assistive Device (Sit-Stand Transfers) walker, front-wheeled - Row Name 02/05/251338 Stand-Sit Transfer Stand-Sit [place] (Transfers) contact guard;verbal cues -CS Assistive Device (Stand-Sit Transfers) walker, front-wheeled - Row Name 02/05/251338 Toilet Transfer [place] Level (Toilet Transfer) contact guard;verbal cues -CS Assistive Device (Toilet Transfer) grab bars/safety frame;walker, front-wheeled -[facility] Name 02/05/251338 Functional Mobility Functional Mobility- Ind. Level contact guard assist;verbal cues required - Functional Mobility- Device walker, front-wheeled - Functional Mobility-Distance (Feet) -- to/from bathroom, functional household distance - Row Name 02/05/251338 Activities of Daily Living BADL Assessment/Intervention lower body dressing;toileting;grooming -[facility] Name 02/05/251338 Lower Body Dressing Assessment/Training [place] Level (Lower Body Dressing) don;doff;socks;set up - Position (Lower Body Dressing) edge of bed sitting -[facility] Name 02/05/251338 Toileting Assessment/Training [place] Level (Toileting) adjust/manage clothing;perform perineal hygiene;standby assist - Position (Toileting) supported sitting;supported standing - Row Name 02/05/251338 Grooming Assessment/Training [place] Level (Grooming) wash face, hands;standby assist - Position (Grooming) supported standing;sink side - User Hinton (r) = Recorded By, (t) = Taken By, (c) = Cosigned By Initials Name Provider Type CS Brittany Balderas OT Occupational Therapist Obj/Interventions Row Name 02/05/25 134 Sensory Assessment (Somatosensory) Sensory Assessment (Somatosensory) UE sensation intact -CS Row Name 02/05/25 134 Vision Assessment/Intervention Visual Impairment/Limitations WFL -CS Row Name 02/05/25 1340 Range of Motion Comprehensive General Range of Motion bilateral upper extremity ROM WFL -[facility] Name 02/05/25 134 Strength Comprehensive (MMT) Comment, General Manual Muscle Testing (MMT) Assessment BUE grossly 3+/5 -[facility] Name 02/05/25 134 Motor Skills Motor Skills coordination - Coordination bilateral;upper extremity;finger to nose;WFL - Row Name 02/05/25 134 Balance Balance Assessment sitting static balance;sitting dynamic balance;standing static balance;standing dynamic balance -CS Static Sitting Balance standby assist -CS Dynamic Sitting Balance standby assist -CS Position, [...] Provider Type Brittany Carrillo OT Occupational Therapist Goals/Plan [facility] 02/05/25 134 Transfer Goal 1 (OT) Progress/Outcome (Transfer Goal 1, OT) goal ongoing -[facility] 02/05/251341 Dressing Goal 1 (OT) Progress/Outcome (Dressing Goal 1, OT) goal partially met;good progress toward goal -[facility] 02/05/25 134 Therapy Assessment/Plan (OT) Planned Therapy Interventions (OT) activity tolerance training;adaptive equipment training;BADL retraining;functional balance retraining;ROM/therapeutic exercise;strengthening exercise;transfer/mobility retraining;patient/caregiver education/training;neuromuscular control/coordination retraining;cog nitive/visual perception retraining;occupation/activity based interventions - User Hinton (r) = Recorded By, (t) = Taken By, (c) = Cosigned By Initials Name Provider Type Brittany Carrillo OT Occupational Therapist Clinical Impression [facility] Name 02/05/25 134 Pain Assessment Pretreatment Pain Rating 0/10 - no pain -CS Posttreatment Pain Rating 0/10 - no pain -[facility] 02/05/25 134 Plan of Care Review Plan of Care Reviewed With spouse;patient -CS Progress improving -CS Outcome Evaluation OT Re-eval complete. Pt presents w/ mild balance deficits and cognitive deficitswarranting cont skilled IPOT POC to promote return to PLOF. Recommend pt DC home w/ 16/12 assist andOP OT/PT/HEAVY DUTY TRUCK MECHANIC services. -CS Row Name 02/05/25 1341 Therapy Assessment/Plan (OT) Patient/Family Therapy Goal Statement (OT) Return to PLOF -CS Rehab Potential (OT) good -CS Criteria for Skilled Therapeutic Interventions Met (OT) yes;skilled treatment is necessary -CS Therapy Frequency (OT) daily -CS Predicted Duration of Therapy Intervention (OT) 10 days -CS Row Name 02/05/25 1341 Therapy Plan Review/Discharge Plan (OT) Anticipated Discharge [...] 18 -WW Row Name 02/05/25 1343 Modified [place] Scale Pre-Stroke Modified [place] Scale 6 - Unable to determine (UTD) from the medical record documentation -CS Modified Aparna Scale 3 - Moderate disability. Requiring some help, but able to walk without assistance. - Row Name 02/05/25 1343 Functional Assessment Outcome Measure Options AM-PAC 6 Clicks Daily Activity (OT);Modified [place] -CS User Hinton (r) = Recorded By, (t) = Taken By, (c) = Cosigned By Initials Name Provider Type CS Brittany Balderas OT Occupational Therapist WW Micky Fitch, RN Registered Nurse Occupational Therapy Education Title: PT OT HEAVY DUTY TRUCK MECHANIC Therapies (In Progress) Topic: Occupational Therapy (In [...] return to PLOF. Recommend pt DC home 16/12 assist and OP OT/PT/HEAVY DUTY TRUCK MECHANIC services. Time Calculation: Time Calculation- OT Row Name 02/05/25 1343 Time Calculation- OT OT Start Time 1020 -CS OT Received On 02/05/25 -CS OT Goal Re-Cert Due Date 02/15/25 -CS Timed Charges 28229 - OT Therapeutic Activity Minutes 6 -CS 98812 - OT Self Care/Mgmt Minutes 6 -CS [...] Description Service Date Service Provider Modifiers Qty [id number] OT THERAPEUTIC ACT EA 15 MIN 02/05/2025 Brittany Balderas OT GO 1 [id number] HC OT RE-EVAL 2 02/05/2025 Brittany Balderas [...] surgical history. General Information Row Name 02/05/25 1353 Physical Therapy Time and Intention Document Type re-evaluation -KE Mode of Treatment physical therapy;co-treatment - Row Name 02/05/25 1353 General Information Patient Profile Reviewed yes -KE Prior Level of Function -- See PT IE -KE Existing Precautions/Restrictions fall;other (see comments) aphasia -KE Barriers to Rehab medically complex;previous functional deficit - Row Name 02/05/25 1353 Cognition Orientation Status (Cognition) oriented x 3;verbal cues/prompts needed for orientation;situation;time - Row Name 02/05/25 1353 02/05/25 1339 Safety Issues/Impairments Affecting Functional Mobility [...] PT Physical Therapist Mobility Row Name 02/05/25 8360 Bed Mobility Bed Mobility supine-sit -KE Supine-Sit [place] (Bed Mobility) contact guard;verbal cues -KE Assistive Device (Bed Mobility) bed rails;head of bed elevated -KE Row Name 02/05/25 1354 Sit-Stand Transfer Sit-Stand [place] (Transfers) contact guard;verbal cues -KE Assistive Device (Sit-Stand Transfers) walker, front-wheeled -KE Comment, (Sit-Stand Transfer) x1 from EOB -KE Row Name 02/05/25 1354 Gait/Stairs (Locomotion) [place] Level (Gait) contact guard;1 person assist -KE [...] PT Physical Therapist Obj/Interventions Row Name 02/05/25 1350 Range of Motion Comprehensive General Range of Motion bilateral lower extremity ROM WFL -KE Row Name 02/05/25 1354 Strength Comprehensive (MMT) General Manual Muscle Testing (MMT) Assessment lower extremity strength deficits identified -KE Comment, General Manual Muscle Testing (MMT) Assessment B LE grossly 4/5 -KE Row Name 02/05/25 1350 Motor Skills Motor Skills coordination -KE Coordination heel to shaffer;WFL;other (see comments) assessment limited by command following -KE Row Name 02/05/25 1353 Balance Balance Assessment sitting static balance;sitting dynamic [...] PT) sit to supine/supine to sit -KE [place] Level/Cues Needed (Bed Mobility Goal 1, PT) independent -KE Time Frame (Bed Mobility Goal 1, PT) short term goal (STG);5 days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 Time Calculation: Evaluation Complexity (OT) Review Occupational [...] Description Service Date Service Provider Modifiers Qty [id number] HC-OT EVAL LOW COMPLEXITY 5 02/03/2025 Junie Cardoso OT Student 1 Junie Cardoso OT Student 02/03/2025 [...] Info) Description 03/10/2025 1:30 PM EDT Appointment [facility] [address] [facility] [address] [place] [address] 05/06/2025 1:30 PM EST Office Visit [facility] NEUROLOGY [address] [facility] [address] [place] [address] Fanny Sadler, CUSTOMER PRICING MANAGER [address] [facility] [address] [address] 05/09/2025 11:30 AM EST Office Visit [facility] NEUROSURGERY [address] [facility] [address] [place] [address] Jeffery Phillips PA-C [address] [facility] [address], [place] [id number] Scheduled Referrals Name Type Priority Associated Diagnoses [...] - 130 mg/dL 02/05/2025 11:43 AM EDT [facility] Comment:Serial Number: [id number]: [id number] Blood 02/05/2025 11:3 7 AM EDT 02/05/2025 11:43 AM EDT us Beckie Hsu MD POINT OF CARE TEST ORDERABLES Final Result Performing Organization Address City/[facility]/ZIP Co de Phone Number [facility]
[address] [place] [address], * POC Glucose 4x Daily Before Meals & at Bedtime (02/05/2025 7:41 AM EDT) Glucose 109 70 - 130 mg/dL 02/05/2025 7:43 AM EDT [facility] Comment:Serial Number: [id number]: [id number] Blood 02/05/2025 7:41 AM EDT 02/05/2025 7:43 AM EDT us Beckie Hsu MD POINT OF CARE TEST ORDERABLES Final Result Performing Organization Address City/[facility]/ZIP Co de Phone Number [facility]
[address] [place] [address], * POC Glucose Once (02/04/2025 7:42 PM EDT) Glucose 88 70 - 130 mg/dL 02/04/2025 7:45 PM EDT [facility] Comment:Serial Number: [id number]: [id number] Blood 02/04/2025 7:42 PM EDT 02/04/2025 7:45 PM EDT Iker Gomes MD POINT OF CARE TEST ORDERABLES Final Result Performing Organization Address City/[facility]/ZIP Co de Phone Number [facility]
[address] [place] [address], * POC Glucose 4x Daily Before Meals & at Bedtime (02/04/2025 5:01 PM EDT) [facility] Glucose 122 70 - 130 mg/dL 02/04/2025 5:05 PM EDT [facility] Comment:Serial Number: [id number]: [id number] Blood 02/04/2025 5:01 PM EDT 02/04/2025 5:05 PM EDT Beckie Hsu MD POINT OF CARE TEST ORDERABLES Final Result Performing Organization Address [facility] Co de Phone Number [facility]
[address] [place] [address], * DUPLEX CAROTID LEFT CAR - PERFORMED [...] Study Details Study findings given to Jeffery Phillips on 02/04/2025 at 14:01 EDT. The study [...] point in time navigation of a 5 Polish Peoples catheter into the above selected vessels was performed with little difficulty diagnostic angiograms were performed using 8-10 cc of dilute Visipaque 320 contrast with selective catheterization of the left upper extremity left common right common and right upper extremity and right vertebral At this point time exchange link catheterization in the left common carotid artery was performed. With a [place] destination the Dunbar was placed in the [...] P2Y12 Platelet Inhibition (02/04/2025 9:09 AM EDT) P2Y12 Reactivity Unit 180 PRU DISK DIFFUSION 02/04/2025 9:50 AM EDT [facility] Blood Venipuncture / Unknown 02/04/2025 9:09 AM EDT 02/04/2025 9:17 AM EDT Narrative [facility] - 02/04/2025 9:50 AM EDT P2Y12 [...] PA-C LAB BLOOD ORDERABLES Final Res ult [facility]
[address] [place] [address], * POC Glucose 4x Daily Before Meals & at Bedtime (02/04/2025 7:38 AM EDT) Glucose 98 70 - 130 mg/dL 02/04/2025 7:42 AM EDT [facility] Comment:Serial Number: [id number]: [id number] Blood 02/04/2025 7:38 AM EDT 02/04/2025 7:42 AM EDT Beckie Hsu MD POINT OF CARE TEST ORDERABLES Final Result Performing Organization Address City/[facility] Co de Phone Number [facility]
[address] [place] [address], * (ABNORMAL) Basic Metabolic Panel (02/04/2025 7:23 AM EDT) Glucose 92 65 - 99 mg/dL 02/04/2025 8:05 AM EDT [facility] BUN 20.5 8.0 - 23.0 mg/dL 02/04/2025 8:05 AM EDT [facility] Creatinine 1.26 0.76 - 1.27 mg/dL 02/04/2025 8:05 AM EDT [facility] Sodium 139 136 - 145 mmol/L 02/04/2025 8:05 AM EDT [facility] Potassium 4.6 3.5 - 5.2 mmol/L 02/04/2025 8:05 AM EDT [facility] Comment:Slight hemolysis det ected by analyzer. Result may be falsely elevated. Chloride 106 98 - 107 mmol/L 02/04/2025 8:05 AM EDT [facility] CO2 21.0(L) 22.0 - 29.0 mmol/L 02/04/2025 8:05 AM EDT [facility] Calcium 9.0 8.6 - 10.5 mg/dL 02/04/2025 8:05 AM EDT [facility] BUN/Creatinine Ratio 16.3 7.0 - 25.0 02/04/2025 8:05 AM EDT [facility] Anion Gap 12.0 5.0 - 15.0 mmol/L 02/04/2025 8:05 AM EDT [facility] eGFR 60.2 >60.0 mL/min/1.7 3 02/04/2025 8:05 AM EDT [facility] Blood Venipuncture / Unknown 02/04/2025 7:23 AM EDT 02/04/2025 7:27 AM EDT Narrative [facility] - 02/04/2025 8:05 AM EDT GFR [...] DO LAB BLOOD ORDERABLES Birgit l Result [facility]
[address] [place] [address], * POC Glucose Once (02/03/2025 8:16 PM EDT) Glucose 92 70 - 130 mg/dL 02/03/2025 8:18 PM EDT [facility] Comment:Serial Number: [id number]: [id number] Blood 02/03/2025 8:16 PM EDT 02/03/2025 8:18 PM EDT Ruddy Monteiro DO POINT OF CARE TEST ORDERA BLES Final Result Performing Organization Address [facility] Co de Phone Number [facility]
[address] [place] [address], * (ABNORMAL) POC Glucose Q6H (02/03/2025 6:29 PM EDT) Glucose 155(H) 70 - 130 mg/dL 02/03/2025 6:34 PM EDT [facility] Comment:Serial Number: [id number]: [id number] Blood 02/03/2025 6:29 PM EDT 02/03/2025 6:34 PM EDT Estrella Hsu APRN POINT OF CARE TEST ORDERABLES Final Result Performing Organization Address [facility] Co de Phone Number [facility]
[address] [place] [address], * POC Glucose 4x Daily Before Meals & at Bedtime (02/03/2025 5:18 PM EDT) Glucose 71 70 - 130 mg/dL 02/03/2025 5:20 PM EDT [facility] Comment:Serial Number: [id number]: [id number] Blood 02/03/2025 5:18 PM EDT 02/03/2025 5:20 PM EDT Beckie Hsu MD POINT OF CARE TEST ORDERABLES Final Result Performing Organization Address [facility] Co de Phone Number [facility]
[address] [place] [address], * P2Y12 Platelet Inhibition (02/03/2025 5:06 PM EDT) P2Y12 Reactivity Unit 232 PRU DISK DIFFUSION 02/03/2025 5:53 PM EDT [facility] Blood Venipuncture / Unknown 02/03/2025 5:06 PM EDT 02/03/2025 5:17 PM EDT Narrative [facility] - 02/03/2025 5:53 PM EDT P2Y12 [...] PA-C LAB BLOOD ORDERABLES Final Res ult [facility]
[address] [place] [address], * (ABNORMAL) POC Glucose Q6H (02/03/2025 12:28 PM EDT) Glucose 68(L) 70 - 130 mg/dL 02/03/2025 12:43 PM EDT [facility] Comment:Serial Number: [id number]: [id number] Blood 02/03/2025 12:2 8 PM EDT 02/03/2025 12:42 PM EDT Estrella Hsu CUSTOMER PRICING MANAGER POINT OF CARE TEST ORDERABLES Final Result [facility]
[address] [place] [address], * (ABNORMAL) Comprehensive Metabolic Panel (02/03/2025 11:39 AM EDT) Glucose 90 65 - 99 mg/dL 02/03/2025 12:47 PM EDT [facility] BUN 24.7(H) 8.0 - 23.0 mg/dL 02/03/2025 12:47 PM EDT [facility] Creatinine 1.39(H) 0.76 - 1.27 mg/dL 02/03/2025 12:47 PM EDT [facility] Sodium 137 136 - 145 mmol/L 02/03/2025 12:47 PM EDT [facility] Potassium 4.8 3.5 - 5.2 mmol/L 02/03/2025 12:47 PM EDT [facility] Comment:Specimen hemolyzed. Result may be falsely elevated. Chloride 102 98 - 107 mmol/L 02/03/2025 12:47 PM EDT [facility] CO2 23.5 22.0 - 29.0 mmol/L 02/03/2025 12:47 PM EDT [facility] Calcium 9.3 8.6 - 10.5 mg/dL 02/03/2025 12:47 PM EDT [facility] Total Protein 7.1 6.0 - 8.5 g/dL 02/03/2025 12:47 PM EDT [facility] Albumin 3.8 3.5 - 5.2 g/dL 02/03/2025 12:47 PM EDT [facility] ALT (SGPT) 10 1 - 41 U/L 02/03/2025 12:47 PM EDT [facility] AST (SGOT) 21 1 - 40 U/L 02/03/2025 12:47 PM EDT [facility] Alkaline Phosphatase 86 39 - 117 U/L 02/03/2025 12:47 PM EDT [facility] Total Bilirubin 0.3 0.0 - 1.2 mg/dL 02/03/2025 12:47 PM EDT [facility] Globulin 3.3 gm/dL 02/03/2025 12:47 PM EDT [facility] Comment:Calculated Result A/G Ratio 1.2 g/dL 02/03/2025 12:47 PM EDT [facility] BUN/Creatinine Ratio 17.8 7.0 - 25.0 02/03/2025 12:47 PM EDT [facility] Anion Gap 11.5 5.0 - 15.0 mmol/L 02/03/2025 12:47 PM EDT [facility] eGFR 53.5(L) >60.0 mL/min/1.7 3 02/03/2025 12:47 PM EDT [facility] Blood Venipuncture / Unknown 02/03/2025 11:39 AM EDT 02/03/2025 12:22 PM EDT [facility] - 02/03/2025 12:47 PM EDT GFR [...] DO LAB BLOOD ORDERABLES Birgit l Result [facility]
[address] [place] [address], * (ABNORMAL) CBC (No Diff) (02/03/2025 11:39 AM EDT) WBC 7.64 3.40 - 10.80 10*3/mm3 02/03/2025 12:44 PM EDT [facility] RBC 4.31 4.14 - 5.80 10*6/mm3 02/03/2025 12:44 PM EDT [facility] Hemoglobin 12.4(L) 13.0 - 17.7 g/dL 02/03/2025 12:44 PM EDT [facility] Hematocrit 40.3 37.5 - 51.0 % 02/03/2025 12:44 PM EDT [facility] MCV 93.5 79.0 - 97.0 fL 02/03/2025 12:44 PM EDT [facility] MCH 28.8 26.6 - 33.0 pg 02/03/2025 12:44 PM EDT [facility] MCHC 30.8(L) 31.5 - 35.7 g/dL 02/03/2025 12:44 PM EDT [facility] RDW 12.8 12.3 - 15.4 % 02/03/2025 12:44 PM EDT [facility] RDW-SD 44.2 37.0 - 54.0 fl 02/03/2025 12:44 PM EDT [facility] MPV 9.9 6.0 - 12.0 fL 02/03/2025 12:44 PM EDT [facility] Platelets 174 140 - 450 10*3/mm3 02/03/2025 12:44 PM EDT [facility] Blood Venipuncture / Unknown 02/03/2025 11:39 AM EDT 02/03/2025 12:22 PM EDT us Beckie Hsu MD LAB BLOOD ORDERABLES Final Re sult [facility]
[address] [place] [address], * (ABNORMAL) Lipid Panel (02/03/2025 11:39 AM EDT) Total Cholesterol 93 0 - 200 mg/dL 02/03/2025 12:47 PM EDT [facility] Triglycerides 83 0 - 150 mg/dL 02/03/2025 12:47 PM EDT [facility] HDL Cholesterol 24(L) 40 - 60 mg/dL 02/03/2025 12:47 PM EDT [facility] LDL Cholesterol 52 0 - 100 mg/dL 02/03/2025 12:47 PM EDT [facility] VLDL Cholesterol 17 5 - 40 mg/dL 02/03/2025 12:47 PM EDT [facility] LDL/HDL Ratio 2.18 02/03/2025 12:47 PM EDT [facility] Blood Venipuncture / Unknown 02/03/2025 11:39 AM EDT 02/03/2025 12:22 PM EDT [facility] - 02/03/2025 12:47 PM EDT Cholesterol [...] APRN LAB BLOOD ORDERABLE S Final Result [facility]
[address] [place] [address], * Hemoglobin A1c (02/03/2025 11:39 AM EDT) Hemoglobin A1C 5.42 4.80 - 5.60 % 02/03/2025 1:21 PM EDT [facility] Blood Venipuncture / Unknown 02/03/2025 11:39 AM EDT 02/03/2025 12:22 PM EDT Narrative [facility] - 02/03/2025 1:21 PM EDT Hemoglobin A1C Ranges: Increased Risk for Diabetes 5.7% to 6.4% Diabetes >= 6.5% Diabetic Goal < 7.0% us Estrella Hsu CUSTOMER PRICING MANAGER LAB BLOOD ORDERABLE S Final Result [facility]
[address] [place] [address], * DUPLEX CAROTID BILATERAL CAR - PERFORMED [...] plaque present. Left Vertebral: Antegrade flow noted. Estrella Condon Shadi TRAORE CV VASCULAR ORDERAB LES Final Result * [...] study is technically adequate for diagnosis. Estrella Condon Shadi CUSTOMER PRICING MANAGER CV ECHO ORDERABLES Final Result * (ABNORMAL) POC Glucose Once (02/03/2025 9:32 AM EDT) Glucose 142(H) 70 - 130 mg/dL 02/03/2025 9:34 AM EDT [facility] Comment:Serial Number: [id number]: [id number] Blood 02/03/2025 9:32 AM EDT 02/03/2025 9:34 AM EDT Ruddy Monteiro DO POINT OF CARE TEST ORDERA BLES Final Result [facility]
[address] [place] [address], * MRI Brain Without Contrast (02/03/2025 3:31 [...] MD 02/03/2025 6:05 AM EDT Workstation ID: [id number] Narrative 02/03/2025 6:05 AM EDT MRI BRAIN [...] with moderate generalized volume loss and typical I9zevsrnywixfc subcortical and pontine white matter changes, nonspecific [...] MD 02/03/2025 6:05 AM EDT Workstation ID: [id number] us Estrella Hsu CUSTOMER PRICING MANAGER IMG MRI ORDERABLES Final Result * POC Glucose 4x Daily Before Meals & at Bedtime (02/02/2025 10:48 PM EDT) Glucose 105 70 - 130 mg/dL 02/02/2025 10:51 PM EDT [facility] Comment:Serial Number: [id number] Blood 02/02/2025 10:4 8 PM EDT 02/02/2025 10:51 PM EDT Beckie Hsu MD POINT OF CARE TEST ORDERABLES Final Result [facility]
[address] [place] [address], [place] [phone] * CT Outside Head (02/02/2025 6:44 PM [...] POC Glucose Once (02/02/2025 6:32 PM EDT) Glucose 65(L) 70 - 130 mg/dL 02/02/2025 8:46 PM EDT [facility] Comment:Serial Number: [id number]: [id number] Nicole Comment 1 Notified Patients RN 02/02/2025 8:46 PM EDT [facility] Blood 02/02/2025 6:32 PM EDT 02/02/2025 8:46 PM EDT us Vidhya Shields MD POINT OF CARE TEST ORDERABLES Final Result [facility]
[address] [place] [address], [place] [phone] * IMAGING SCANNED (02/02/2025) Anatomical Region Laterality Modality Radiographic Nancy ging [facility] IMG DIAGNOSTIC IMAGING ORDERA BLES Final Result * IMAGING SCANNED (02/02/2025) Anatomical Region Laterality Modality Radiographic Nancy ging [facility] IMG DIAGNOSTIC IMAGING ORDERA BLES Final Result * IMAGING SCANNED (02/02/2025) Anatomical Region Laterality Modality Radiographic Nancy ging [facility] IMG DIAGNOSTIC IMAGING ORDERA BLES Final Result * ECG Scan (02/02/2025) [facility] ECG ORDERABLES Final Result documented in this [...] 02/03/25 at 0900, If patient fails dysphagia, VA option MUST be given. Do not exceed [...] 02/03/25 at 0900, If patient fails dysphagia, VA option MUST be given. Do not exceed [...] Algorithm to View Details clopidogrel (PLAVIX) tablet 75 mg 75 mg, [...] for injection by adding 1 mL of farm field manager-supplied sterile diluent or sterile water for injection to a vial containing 1 mg of the drug, to provide solutions containing 1 mg/mL. Shake vial gently to dissolve. heparin (porcine) injection Code / Trauma / Sedation Medication, Starting on Fri02/04/25 at 1043 Given 02/04/2025 10:56 AM EDT 2,000 Units Given 02/04/2025 10:43 AM EDT 5,000 Units Insulin Lispro (humaLOG) injection 2-7 Units 2-7 [...] mg/dL - 7 units & Call Provider ([facility]) Caution: Look alike/sound alike drug alert([facility]) iodixanol (VISIPAQUE) 320 MG/ML injection Code / Trauma / Sedation Medication, Starting on Fri02/04/25 at 1135 Given 02/04/2025 11:35 AM EDT 50 mL lidocaine PF 1% (XYLOCAINE) injection Code / Trauma / Sedation Medication, Starting on Fri02/04/25 at 1034 Given 02/04/2025 10:34 AM EDT 5 mL Wrist Right Magnesium Standard Dose Replacement - Follow Nurse [...] with warm soapy water or use hand phototypesetter operator. 3. Open the tube of mupirocin 2%. [...] together and massage gently for 60 seconds. (BK) Given 02/05/2025 9:12 AM EDT 1 Application [...] Given 02/03/2025 8:41 PM EDT 500 mg niCARdipine (CARDENE) syringe Code / Trauma / Sedation Medication, Starting on Fri02/04/25 at 1043 Given 02/04/2025 10:43 AM EDT 200 mcg nitroglycerin (NITROSTAT) SL tablet 0.4 mg 0.4 mg, Sublingual, Every 5 Minutes PRN, Chest Pain, Starting on Fri02/04/25 at 1254, Notify Provider if Pain Unrelieved After 3 Doses May administer up to 3 doses per episode. Hold if SBP less than 100. nitroglycerin 100 mcg/mL in D5W syringe Code / Trauma / Sedation Medication, Starting on Fri02/04/25 at 1043 Given 02/04/2025 10:43 AM EDT 200 mcg Phosphorus Replacement - Follow Nurse / BPA Driven Protocol Open Order & Select [facility] Electrolyte Replacement Protocol Algorithm to View [...] BPA Driven Protocol Open Order & Select [facility] Electrolyte Replacement Protocol Algorithm to View Details sennosides-docusate (PERICOLACE) 8.6-50 MG per tablet 2 tablet 2 tablet, Oral, 2 Times Daily PRN, Constipation, Starting on Fri02/02/25 at 1839, Start bowel management regimen if patient has not had a bowel movement after 12 hours. sodium chloride 0.9 % flush 10 mL [...] 02/03/25 at 0900, If patient fails dysphagia, VA option MUST be given. Do not exceed [...] Fri02/03/25 at 0900, If patient fails dysphagia, VA option MUST be given. Do not exceed [...] Unreviewed Transfer Orders)1107 (JUL Unhold - Provider: Gisselle Tang, PharmD) clopidogrel (PLAVIX) tablet 75 mg (CANCELED) 75 mg, Oral, Daily, First dose on Fri02/03/25 at 0900 1200 (Given - Provider: Diana Zambrano RN) 0838 (Not Given - Provider: Diana Zambrano RN - Reason: See Provider Order)1010 (JUL Hold - Provider: Automatic Transfer Provider - Reason: Unreviewed Transfer Orders)1431 (JUL Unhold - Provider: Lisa Greene, PharmD) clopidogrel (PLAVIX) tablet 75 mg 75 mg, [...] mg/dL - 7 units & Call Provider ([facility]) Caution: Look alike/sound alike drug alert([facility]) 0941 (Not Given - Provider: Diana Zambrano, RN - Reason: Order parameters not met - Comment: 142)1246 (Not Given - Provider: Diana Zambrano RN - Reason: Order parameters not met)1758 (Not Given - Provider: Diana Zambrano RN - Reason: Order parameters not met)2022 (Not Given - Provider: Sara Bill RN - Reason: Order parameters not met - Comment: BS 92) 0749 (Not Given - Provider: Diana Zambrano RN - Reason: Order parameters not met - Comment: 98)1010 (MAR Hold - Provider: Automatic Transfer Provider - Reason: Unreviewed Transfer Orders)1130 (Dose Auto Held - Provider: Automatic Transfer Provider)1659 (MAR Unhold - Provider: Hector Grijalva, CUSTOMER PRICING MANAGER)1716 (Not Given - Provider: Cesar Ceballos RN [...] with warm soapy water or use hand phototypesetter operator. 3. Open the tube of mupirocin 2%. [...] together and massage gently for 60 seconds. ([facility]) 1746 (Given - Provider: Cesar Ceballos RN) 0912 (Given - Provider: Micky Fitch, SHIRLEY) mycophenolate (CELLCEPT) capsule 500 mg 500 mg, Oral, 2 Times Daily, First dose on Fri02/02/25 at 2200, Take on an empty stomach Group 1 (Yellow) Hazardous Drug - See Handling Guide 0024 (Given - Provider: Saurabh Courtney RN)1200 (Given - Provider: Diana Zambrano RN)204 (Given - Provider: Sara Bill, SHIRLEY) 0839 (Not Given - Provider: Diana Zambrano RN - Reason: Hold For Procedure)1010 (MAR Hold - Provider: Automatic Transfer Provider - Reason: Unreviewed Transfer Orders)1659 (MAR Unhold - Provider: Hector Grijalva, CUSTOMER PRICING MANAGER)2103 (Given - Provider: Janet Barnett RN) 1150 (Given - Provider: Micky Fitch RN) sodium chloride 0.9 % bolus 1,000 mL [...] RN)1201 (Canceled Entry - Provider: Diana Zambrano RN)205 (Given - Provider: Sara Bill RN) 1010 (MAR Hold - Provider: Automatic Transfer Provider - Reason: Unreviewed Transfer Orders)1240 (Not Given - Provider: Cesar Ceballos RN - Reason: Other)1432 (MAR Unhold - Provider: Lisa Greene, PharmD) sodium chloride 0.9 % flush 10 mL 10 mL, Intravenous, Every 12 Hours Scheduled, First dose on Fri02/02/25 at 2100 0025 (Given - Provider: Saurabh Courtney, RN)1201 (Given - Provider: Diana Zambrano, RN)205 (Given - Provider: Sara Bill, SHIRLEY) 0843 [...] after 12 hours. Hold for diarrhea 1010 ([facility] Hold - Provider: Automatic Transfer Provider - Reason: Unreviewed Transfer Orders)1658 ([facility] Unhold - Provider: Hector Grijalva APRN) Calcium [...] NPO or Unable To Safely Swallow 1010 ([facility] Hold - Provider: Automatic Transfer Provider - Reason: Unreviewed Transfer Orders)1658 ([facility] Unhold - Provider: Hector Grijalva APRN) dextrose (GLUTOSE) oral gel 15 g 15 g, Oral, Every 15 Minutes PRN, Low Blood Sugar, Blood sugar less than 70, Starting on Fri02/02/25 at 1914, BS<70, Patient Alert, Is not NPO, Can safely swallow. 1010 ([facility] Hold - Provider: Automatic Transfer Provider - Reason: Unreviewed Transfer Orders)1658 ([facility] Unhold - Provider: Hector Grijalva APRN) glucagon (GLUCAGEN) injection 1 mg 1 mg, Intramuscular, Every 15 Minutes PRN, Low Blood Sugar, Blood Glucose Less Than 70, Starting on Fri02/02/25 at 1914, Blood Glucose Less Than 70 - Patient Without IV Access - Unresponsive, NPO or Unable To Safely Swallow Reconstitute powder for injection by adding 1 mL of farm field manager-supplied sterile diluent or sterile water for injection to a vial containing 1 mg of the drug, to provide solutions containing 1 mg/mL. Shake vial gently to dissolve. 1010 ([facility] Hold - Provider: Automatic Transfer Provider - Reason: Unreviewed Transfer Orders)1658 ([facility] Unhold - Provider: Hector Grijalva APRN) heparin [...] Replacement Protocol Algorithm to View Details 1010 ([facility] Hold - Provider: Automatic Transfer Provider - Reason: Unreviewed Transfer Orders)1658 ([facility] Unhold - Provider: Hector Grijalva APRN) niCARdipine [...] BPA Driven Protocol Open Order & Select [facility] Electrolyte Replacement Protocol Algorithm to View Details 1010 ([facility] Hold - Provider: Automatic Transfer Provider - Reason: Unreviewed Transfer Orders)1659 ([facility] Unhold - Provider: Hector Grijalva APRN) polyethylene glycol (MIRALAX) packet 17 g(Linked Group 3) 17 g, Oral, Daily PRN, Constipation, Use if senna-docusate is ineffective, Starting on Fri02/02/25 at 1839, Use if no bowel movement after 12 hours. Mix in 6-8 ounces of water. Use 4-8 ounces of water, tea, or juice for each 17 gram dose. 1010 ([facility] Hold - Provider: Automatic Transfer Provider - Reason: Unreviewed Transfer Orders)165 ([facility] Unhold - Provider: Hector Grijalva APRN) Potassium [...] a bowel movement after 12 hours. 1010 ([facility] Hold - Provider: Automatic Transfer Provider - Reason: Unreviewed Transfer Orders)165 ([facility] Unhold - Provider: Hector Grijalva APRN) sodium chloride 0.9 % flush 10 mL 10 mL, Intravenous, As Needed, Line Care, Starting on Fri02/02/25 at 1838 1010 ([facility] Hold - Provider: Automatic Transfer Provider - Reason: Unreviewed Transfer Orders)165 ([facility] Unhold - Provider: Hector Grijalva APRN) sodium chloride 0.9 % infusion 40 mL 40 mL, Intravenous, at 100 mL/hr, As Needed, Line Care, Starting on Fri02/02/25 at 1838, Following administration of an IV intermittent medication, flush line with 40mL NS at 100mL/hr. 1010 ([facility] Hold - Provider: Automatic Transfer Provider - Reason: Unreviewed Transfer Orders)1659 ([facility] Unhold - Provider: Hector Grijalva APRN) Linked Groups Order Group 1: aspirin chewable tablet 81 mgJump to med 81 mg, Oral, Daily, First dose on Evie 02/03/25 at 0900, If patient fails dysphagia, VA option MUST be given. Do not exceed [...] 02/03/25 at 0900, If patient fails dysphagia, VA option MUST be given. Do not exceed [...] diarrhea documented in this encounter Care Teams Product Safety Engineer Relationship Specialty Start Date End Date Janet Gardner APRN [address] [id number] PCP - General Internal Medicine 02/03/25 documented as of this encounter
--- OUTSIDE RECORDS SUMMARY | 2025-02-09 09:10 | XMS_ITS | Encounter Summary ---
Author Organization [facility] Address [address] [id number] Care Team Providers Care Extruder Operator Name Role Phone Guera Bermeo APRN Primary Care Provider [phone] Reason for Referral * Consultation (Routine) - Authorized Specialty Diagnoses / Procedures Referred By Contac t Referred To Contact Cardiology Diagnoses ILD (interstitial lung disease) (CMS/HCC) Muscle weakness Pulmonary hypertension (CMS/HCC) Jina Gonzalez MD [address] [address] Phone: tel: fax: Referral ID Status Reason Start Date Expiration Date Visits Requested Visits Authorized [id number] Authorized Specialty Services Required 02/09/2025 08/11/2026 1 1 Scheduling Instructions For pulmonary hypertension , has ILD * Consultation (Routine) - Authorized Specialty Diagnoses / Procedures Referred By Contac t Referred To Contact Pulmonology Diagnoses ILD (interstitial lung disease) ([facility]/HCC) Jina Gonzalez MD [address] [address] Phone: tel: fax: [facility] [address] [place] [address] Phone: tel: fax: Referral ID Status Reason Start Date Expiration Date Visits Requested Visits Authorized [id number] Authorized Specialty Services Required 02/09/2025 08/11/2026 1 1 Reason for Visit * Reason Comments Consult * Consultation (Routine) - Closed Specialty Diagnoses / Procedures Referred By Contac t Referred To Contact Rheumatology Diagnoses Rheumatoid arthritis (CMS/HCC) Eden Saldivar MD [address] [place] [address] Phone: tel: fax: [facility] [address] [place] [address] Phone: tel: fax: Referral ID Status Reason Start Date Expiration Date V isits Requested Visits Authorized [id number] Closed Specialty Services Required 01/20/2025 07/22/2026 1 1 Encounter Details Date Type Department Care Team (Late st Contact Info) Description 02/09/2025 9:[address] [facility] [address], [address] [place] [phone] Krupa Bates MD [address] [place] [id number] ILD (interstitial lung disease) (CMS/HCC) (Primary Dx); Muscle weakness; Pulmonary hypertension (CMS/HCC); Scl-70 antibody positive; Rheumatoid factor positive; Arthralgia, unspecified joint; Positive DHEERAJ (antinuclear antibody); Raynaud's disease without gangrene Social History Tobacco Use Types Packs/Day Years Used Date Smoking Tobacco: Never Smokeless Tobacco: Never Tobacco Cessation:Counseling Given: Not Answered PHQ-2 Answer Date Recorded Patient Health Questionnaire-2 Score 0 02/09/2025 PHQ-9 Answer Date Recorded Patient Health Questionnaire-9 Score 0 02/09/2025 Sex and Gender Information Value Date Recorded Sex Assigned at Not on file Legal Sex Male 7:17 PM EDT Gender Identity Not on file Sexual Orientation Not on file documented as of this encounter Last Filed Vital Signs Vital Sign Reading Time Taken Comments Blood Pressure 105/68 02/09/2025 8:51 AM EDT Pulse 74 02/09/2025 8:51 AM EDT Temperature 36.7 C (98.1 F) 02/09/2025 8:51 AM EDT Respiratory Rate 16 02/09/2025 8:51 AM EDT Oxygen Saturation 97% 02/09/2025 8:51 AM EDT Inhaled Oxygen Concentration - - Weight 66.9 kg (147 lb 7.8 oz) 02/09/2025 8:51 A M EDT Height 177.8 cm (5' 10 ) 02/09/2025 8:51 AM EDT Body Mass Index 21.16 02/09/2025 8:51 AM EDT documented in this encounter Functional Status * Over the past 2 weeks, how often have you been bothered by any of the following problems? Question Answer Date of Assessment Author Little interest or pleasure in doing things Not at all 02/09/2025 9:03 AM EDT AlkStu mary Feeling down, depressed, or hopeless Not at all 02/09/2025 9:03 AM EDT Stu Feliz Patient Health Questionnaire -2 Score 0 02/09/2025 9:03 AM EDT Stu Feliz * Question Answer Date of Assessment Author Trouble falling or staying a sleep, or sleeping too much Not at all 02/09/2025 9:03 AM EDT Alkwendyb, Stu Feeling tired or having godwin le energy Not at all 02/09/2025 9:03 AM EDT AlkStu mary Poor appetite or overeating Not at all 02/09/2025 9: 03 AM EDT Alkwendyb, Stu Feeling bad about yourself - or that you are a failure or have let yourself or your family down Not at all 02/09/2025 9:03 AM EDT Alktyra , Stu Trouble concentrating on thi ngs, such as reading the newspaper or watching television Not at all 02/09/2025 9:03 AM EDT Alkwendyb, Stu Moving or speaking so slowly that other people could have noticed? Or the opposite - being so fidgety or restless that you have been moving around a lot more than usual. Not at all 02/09/2025 9:03 AM EDT Alkassa b, Stu Thoughts that you would be b zarina off or hurting yourself in some way Not at all 02/09/2025 9:03 AM EDT Stu Feliz Patient Health Questionnaire -9 Score 0 02/09/2025 9:03 AM EDT Stu Feliz * How difficult have these problems made it for you to do your work, take care of things at home, or get along with other people? Answer Date of Assessment Author Not difficult at all 02/09/2025 9:03 AM EDT Stu Levi documented as of this encounter Miscellaneous Notes * Patient Instructions - Krupa Bates MD - 02/09/2025 9:10 AM EDT Continue with mycophenolate but increased dose now 2 tablets 2 times a day ( 1gm 2 times a day ) Lab work today XR today Follow up in 2 months * Progress Notes - Krupa Bates MD - 02/09/2025 9:10 AM EDT Rheumatology New Consult Note Chief Complaint Patient presents with Consult Derrick Roach is a 75 y.o. male who was referred to rheumatology by Eden Saldivar MD for evaluation of RA and ILD. PMHx is significant for Diabetes, CVA in 2018, ILD on MMF 500 mg BID since 2023, RA On evaluation , the pt presents with his and his grandson. He is in general not a great historian. His stated that his recent stroke affected his speech. The pt denied significant joint pain except his hips. Stated that it is somewhat hard to stand up from sitting position as it is painful. He is not sure if his hands are swollen , but stated that maybe it is more swollen. reports that he is very stiff. Stated that stiffness is in all his body and includes his hands as well . Reports that he is very still during morning and it takes a while to get better. Denied any muscle pain. Denied any rash or ulcers Reports SOB with exertion , denied cough Denied any problems with BM , reports having intermittent GERD Denied problems with urination or seeing blood in his urine Denied fevers or chills . No hx of Blood clots , hx of 2 CVAs The stated that he was diagnosed with RA and for changes in his lungs he was started on MMF From outside records Echo in 2023 with normal sustolic function , mild RV dilation RVSP at 35 to 40 HRCT sept 2023 and 2024 : bilateral subpleural lower love predominant left greater than right interstitial changes along with prominent traction bronchiectasis in lower lobes, No honeycombing/cystic changes PET CT with no significant uptake for he lymphadenopathy Lab : positive DHEERAJ 1:1280 and RF 27.8 Neg anti Ariadne 1, anti centromere Family Hx: not known autoimmune disorders Allergies[1] Past Medical History[2] Surgical History[3] Family History[4] Social History Tobacco Use Smoking status: Never Smokeless tobacco: Never Substance Use Topics Alcohol use: Not on file Objective Home medications: Current Outpatient Medications Medication Instructions Aspirin Buf,CyQexi-OtSfwx-MxP, 81 MG tablet 1 tablet, Daily atorvastatin (LIPITOR) 80 mg, Daily Breo Ellipta 100-25 MCG/ACT aerosol powder 1 puff clopidogrel (PLAVIX) 75 mg, Daily furosemide (LASIX) 20 mg, Daily metFORMIN (GLUCOPHAGE) 1,000 mg, 2 times daily with meals mycophenolate (CELLCEPT) 500 mg, 2 times daily potassium chloride CR (K-Tab) 20 MEQ ER tablet 20 mEq, Daily Vitals: 01/18/2019 12:07 PM 02/09/2025 8:51 AM Vitals Systolic 125 105 Diastolic 82 68 Heart Rate 65 74 Temp 36.7 C Resp 16 16 Height (cm) 177.8 cm 177.8 cm Weight (kg) 92.59 kg 66.9 kg BMI 29.29 kg/m2 21.16 kg/m2 BSA (m2) 2.14 m2 1.82 m2 Physical Exam Constitutional: adult male, sitting in a chair, in No acute distress, cooperative. Head and Face: Head and face: No temporal artery tenderness or prominence. Eyes: No swelling, erythema of the lids. No conjunctival irritation. No corneal lesions. *Pupils and irises were equal, round and reactive to light. Ears, Nose, Mouth, and Throat: External inspection of ears and nose was normal. *Nasal mucosa, septum, and turbinates were normal without edema or erythema. *Lips, tongue, and gums were normal. *Oropharynx was normal with no erythema, edema, exudate ulcerations or lesions. The salivary pool was normal. Pulmonary: No increased work of breathing or signs of respiratory distress. Decreased lung sound onthe left Cardiovascular: Normal rate and rhythm, normal S1 and S2, no murmurs. *Pulses were full and symmetrical. *There was no extremity edema. Abdomen: Non-tender, non-distended. Skin: tight skin, some bluish discoloration on the tips of several fingers Neurologic: AO x3 , no significant focal deficit Psychiatric: Judgment and insight were normal. *Orientated to person, place, and time. *Recent and remote memory were intact. *Mood and affect were normal. Musculoskeletal: Gait was normal but slow . *Digits with some bluish discoloration , some clubbing,cyanosis, no ulcers, or pits. Nails were not dystrophic. There was no cuticular overgrowth and nailfold capillaries were normal. *There was no evidence of synovitis and no joint effusions were detected but some overall mild edema. Muscle strength with slight decreased on the left LE Results: Lab Results Component Value Date WBC 7.64 02/03/2025 HGB 12.4 (L) 02/03/2025 HCT 40.3 02/03/2025 MCV 93.5 02/03/2025 PLT 174 02/03/2025 Lab Results Component Value Date GLUCOSE 92 02/04/2025 BUN 20.5 02/04/2025 CREATININE 1.26 02/04/2025 BCR 16.3 02/04/2025 NA 139 02/04/2025 K 4.6 02/04/2025 CL 106 02/04/2025 CO2 23 10/08/2018 CA 7.9 (L) 10/08/2018 ALBUMIN 3.8 02/03/2025 ALKPHOS 55 10/08/2018 BILITOT 0.3 02/03/2025 Images: As above Assessment/Plan #Hx of ILD , unclear etiology at this time but suspected autoimmune etiology such as scleroderma aspt presented with skin changes on his hands. He was diagnosed with RA however not clear his RF is only slightly elevated and CCP was negative , yes it is a possibility to have seronegative RA howeverif ILD is secondary to that then it is less likely. Plan - will continue with MMF as he does have CT changes consistent with ILD. We will increase a dose ofit to 1 g BID - will refer to pulmonology - will obtain blood work to reevaluate RA, will check for scleroderma as well , will check UA with URCr , will also check hep panel and TB screen in case of needs to use additional immunosuppression therapy - will do hands XR - will follow up in 2 months #Pulmonary hypertension based on prior Echo - will refer to cardiology #Bilateral hip pain. Unclear etiology bt can be secondary to OA vs PMR - will do bilateral hip XR as well as will check CRP and ESR Immunization History Administered Date(s) Administered Influenza, High-dose, Split Virus, Trivalent, Injectable, preservative free 03/29/2018 Influenza, injectable, quadrivalent, preservative free 04/14/2023 [employer] COVID-19 Vaccine (Blue Cap) 18+ 08/02/2020 [employer] COVID-19 Vaccine (Purple Cap) 12+ 04/12/2021 Counseling: diagnosis, lab results, follow up plan, and return instructions Information regarding activities, treatments, and follow-up recommendations was provided to the patient/family member(s) present today who have shown recognition and demonstration of understanding ofthis information. The pt was evaluated with Dr Carlos Bates M.D. PGY4, Rheumatology Fellow Division of Rheumatology Department of Internal Medicine [facility] Please note: This dictation was prepared using [employer] voice recognition software. As a result errors may occur. While every attempt is made to correct the mistakes during dictation, errors may still exist. When identified, these histopathologist errors have been updated. [1] No Known Allergies [2] Past Medical History: Diagnosis Date Personal history of transient ischemic attack (TIA), and cerebral infarction without residual deficits History of cerebrovascular accident [3] Past Surgical History: Procedure Laterality Date NO PAST SURGERIES N/A No history of surgery from [employer] [4] Family History Problem Relation Name Age of Onset Stroke Father Cosigned by Jina Gonzalez MD at 02/14/2025 4:19 PM EDT Associated attestation - Jina Gonzalez MD - 02/14/2025 4:19 PM EDT I saw and evaluated the patient with the resident/fellow. I discussed the case with the resident/fellow and agree with the findings and plan as documented. Derrick Roach 75 y.o. for new consult of Positive DHEERAJ and RF, arthralgia and SOB. H e described joint pain mainly in the hips howveer stiffness every where else, no significant inflammatory features of wamrth/redness or swelling however mornings are harder for him. He wa started on cellcept 500 BID for ppossible SARD ILD. He had recent stroke affecting his speech. Exam suggestive of sclerodactyly , raynaud's was observed on exam sparing the thumbs/. TTE nl EF 2023 but RV dilation and 35-40 RVSP. his presentation as well as positive SCL70 4.7 externally is suggestive of systemic sclerosis. Plan: refer to pulmonary for SOB, lung changes and concern for ILD, labs today, determine underlying etiology, cardiology for possible pulmonary hypertension, Will obtain CT scan results, Xray hips, favor systemic sclerosis, we will increase CellCept doing g twice a day for now. Educated about importance of passive rewarming for raynauds and medical options if were to worsen I spent 65 minutes in this patient encounter which includes reviewing records from the referring provider, gathering history, reviewing images, labs, evaluation, counseling and documentation. This note is written in medical language and may contain abbreviations or verbiage that are unfamiliar. It may appear blunt or direct. Medical documents are intended to carry relevant information, facts as evident, and the clinical opinion of the medical professional. Parts of this note were dictated using [employer] voice recognition software. As a result, errors may occur. When identified, these histopathologist errors are corrected, but while every attempt is made to prevent/correctthese, errors may still exist. Jina Gonzalez MD. Material Distributor Division of Rheumatology Department of Internal Medicine [facility] documented in this encounter Plan of Treatment Upcoming Encounters Date Type Department Care Team (Late st Contact Info) Description 04/13/2025 9:10 AM EST Office Visit [place] [facility] [address] [place] [id number] Krupa Bates MD [address] [place] [address] Scheduled Referrals Name Type Priority Associated Diagnoses Orde r Schedule Pulmonology Outpatient Referral Routine ILD (interstitial lung disease) (CMS/HCC) Expected: 02/09/2025 (Approximate), Expires: 08/13/2026 Cardiology Outpatient Referral Routine ILD (interstitial lung disease) (CMS/HCC) Muscle weakness Pulmonary hypertension (CMS/HCC) Expected: 02/09/2025 (Approximate), Expires: 08/13/2026 documented as of this encounter Results * (ABNORMAL) Thyroid Stimulating Hormone, Plasma (02/09/2025 11:55 AM EDT) Pathologist [facility] Thyroid Stimulating Hormone, Plasma 5.94(H) 0.40 - 4.20 uIU/mL 02/09/2025 2:17 PM EDT [facility] Blood Venous blood specimen / Unknown Venipuncture / Unknown 02/09/2025 11:55 AM EDT 02/09/2025 11:55 AM EDT us Jina Gonzalez MD LAB BLOOD ORDERABLES Final Re sult [facility] [address] [place] [address] * Quantiferon TB Gold Plus (02/09/2025 11:55 AM EDT) Pathologist [facility] Quantiferon TB Gold Plus Result Negative Negative 02/10/2025 6:03 PM EDT [facility] TB Nill Value 0.0429 IU/mL 02/10/2025 6:03 PM EDT [facility] TB Antigen 1 0.0017 IU/mL 02/10/2025 6:03 PM EDT [facility] TB Antigen 2 -0.0098 IU/mL 02/10/2025 6:03 PM EDT [facility] TB Mitogen 9.8471 IU/mL 02/10/2025 6:03 PM EDT [facility] Blood Venous blood specimen / Unknown Venipuncture / Unknown 02/09/2025 11:55 AM EDT 02/09/2025 11:55 AM EDT Narrative [facility] - 02/10/2025 6:03 PM EDT Responses to the Mitogen positive control and occasionally to TB antigen can be above the assay range. For calculation purposes: IFN-gamma values > 10 IU/mL are handled as 10 IU/mL. us Jina Gonzalez MD LAB BLOOD ORDERABLES Final Re sult Performing Organization Address City/[facility]/[place] [address] * Rheumatoid Factor, Plasma (02/09/2025 11:55 AM EDT) Pathologist [facility] Rheumatoid Factor, Plasma <10 <14 IU/mL 02/09/2025 2:17 PM EDT [facility] Blood Venous blood specimen / Unknown Venipuncture / Unknown 02/09/2025 11:55 AM EDT 02/09/2025 11:55 AM EDT us Jina Gonzalez MD LAB BLOOD ORDERABLES Final Re sult Performing Organization Address [facility]/[place] [address] * Hepatitis C Antibody (02/09/2025 11:55 AM EDT) Pathologist [facility] Hepatitis C Antibody Negative Negative 02/09/2025 2:48 PM EDT [facility] Blood Venous blood specimen / Unknown Venipuncture / Unknown 02/09/2025 11:55 AM EDT 02/09/2025 11:55 AM EDT us Jina Gonzalez MD LAB BLOOD ORDERABLES Final Re sult Performing Organization Address City/[facility]/[place] [address] * Hepatitis B Surface Antigen (02/09/2025 11:55 AM EDT) Hepatitis B Surf Antigen Negative Negative 02/09/2025 2:57 PM EDT [facility] Blood Venous blood specimen / Unknown Venipuncture / Unknown 02/09/2025 11:55 AM EDT 02/09/2025 11:55 AM EDT Jina Gonzalez MD LAB BLOOD ORDERABLES Final Re sult Performing Organization Address [facility] [place] [address] * Hepatitis B Core Total Antibody IgG,IgM (02/09/2025 11:55 AM EDT) Pathologist [facility] Hepatitis B Core Total Antibody IgG,IgM Negative Negative 02/09/2025 2:57 PM EDT [facility] Blood Venous blood specimen / Unknown Venipuncture / Unknown 02/09/2025 11:55 AM EDT 02/09/2025 11:55 AM EDT Jina Gonzalez MD LAB BLOOD ORDERABLES Final Re sult Performing Organization Address [facility] [place] [address] * ENAII (02/09/2025 11:55 AM EDT) Pathologist [facility] SSA-52 (RO52) (BOUCHRA) Antibody, IgG 3 0 - 40 AU/mL 02/12/2025 10:53 PM EDT [facility] SSA-60 (RO60) (BOUCHRA) Antibody, IgG 1 0 - 40 AU/mL 02/12/2025 10:53 PM EDT [facility] SSB (LA) (BOUCHRA) Antibody, IgG 9 0 - 40 AU/mL 02/12/2025 10:53 PM EDT [facility] Blood Venous blood specimen / Unknown Venipuncture / Unknown 02/09/2025 11:55 AM EDT 02/09/2025 11:55 AM EDT Narrative [facility]AN IRIZARR[facility]) - 02/12/2025 10:53 PM EDT INTERPRETIVE INFORMATION: SSA-52 (Ro52) (BOUCHRA) Antibody, IgG 29 AU/mL or Less ............. Negative 30 - 40 AU/mL ................ Equivocal 41 AU/mL or Greater .......... Positive SSA-52 (Ro52) and/or SSA-60 (Ro60) antibodies are associated with a diagnosis of Sjogren syndrome, systemic lupus erythematosus (SLE), and systemic sclerosis. SSA-52 antibody overlaps significantly with the major SSc-related antibodies. SSA-52 (Ro52) antibody occurs frequently in patients with inflammatory myopathies, often in the presence of interstitial lung disease. REFERENCE INTERVAL: SSA-60 (Ro60) (BOUCHRA) Antibody, IgG 29 AU/mL or Less ............. Negative 30 - 40 AU/mL ................ Equivocal 41 AU/mL or Greater .......... Positive INTERPRETIVE INFORMATION: SSB (La) (BOUCHRA) Ab, IgG 29 AU/mL or Less ............. Negative 30 - 40 AU/mL ................ Equivocal 41 AU/mL or Greater .......... Positive SSB (La) antibody is seen in 50-60% of Sjogren syndrome cases and is specific if it is the only BOUCHRA antibody present. 15-25% of patients with systemic lupus erythematosus (SLE) and 5-10% of patients with progressive systemic sclerosis (PSS) also have this antibody. Performed By: [facility] [address] [place] [id number] Incinerator Operator: Anderson Pizarro MD, PhD CLIA Number: [id number] us Jina Gonzalez MD LAB BLOOD ORDERABLES Final Re sult [facility]) [address] [place] [address] * ENAI (02/09/2025 11:55 AM EDT) [employer]/INSPECTOR BALANCE TRUING (BOUCHRA) Ab, IgG 3 0 - 19 Units 02/10/2025 11:[address] [facility]) Blood Venous blood specimen / Unknown Venipuncture / Unknown 02/09/2025 11:55 AM EDT 02/09/2025 11:55 AM EDT Narrative [facility] REHAN IRIZARRY) - 02/10/2025 11:35 PM EDT INTERPRETIVE INFORMATION: Balderas/INSPECTOR BALANCE TRUING (BOUCHRA) Antibody, IgG 19 Units or Less ............. Negative 20 to 39 Units ............... Weak Positive 40 to 80 Units ............... Moderate Positive 81 Units or greater .......... Strong Positive Balderas/INSPECTOR BALANCE TRUING antibodies are frequently seen in patients with mixed connective tissue disease (MCTD) and are also associated with other systemic autoimmune rheumatic diseases (SARDs) such as systemic lupus erythematosus (SLE), systemic sclerosis, and myositis. Antibodies targeting the Balderas/INSPECTOR BALANCE TRUING antigenic complex also recognize Balderas antigens, therefore, the Balderas antibody response must be considered when interpreting these results. Performed By: [facility] [address] [place] [address] Incinerator Operator: Anderson Pizarro MD, PhD CLIA Number: [id number] us Jina Gonzalez MD LAB BLOOD ORDERABLES Final Re sult [facility] ED[facility]) [address] [id number] * Cyclic Citrul Peptide Antibody IgG (02/09/2025 11:55 AM EDT) Pathologist [facility] Cyclic Citrul Peptide Antibody IgG <5.0 <=5.0 U/mL 02/09/2025 3:10 PM EDT [facility] Blood Venous blood specimen / Unknown Venipuncture / Unknown 02/09/2025 11:55 AM EDT 02/09/2025 11:55 AM EDT Jina Gonzalez MD LAB BLOOD ORDERABLES Final Re sult Performing Organization Address City/[facility] Co de Phone Number [facility] [address] [place] [address] * C-reactive protein (02/09/2025 11:55 AM EDT) CRP, Plasma <3.0 <=8.0 mg/L 02/09/2025 2:17 PM EDT [facility] Blood Venous blood specimen / Unknown Venipuncture / Unknown 02/09/2025 11:55 AM EDT 02/09/2025 11:55 AM EDT Narrative [facility] - 02/09/2025 2:17 PM EDT This CRP test is appropriate for assessment of infection, systemic inflammation and/or tissue injury. To assess cardiovascular disease risk order high sensitivity CRP (CRPH). us Jina Gonzalez MD LAB BLOOD ORDERABLES Final Re sult Performing Organization Address City/[facility] [place] [place] [address] * C4 complement (02/09/2025 11:55 AM EDT) C4 Complement 27 13 - 36 mg/dL 02/09/2025 2:30 PM EDT [facility] Blood Venous blood specimen / Unknown Venipuncture / Unknown 02/09/2025 11:55 AM EDT 02/09/2025 11:55 AM EDT us Jina Gonzalez MD LAB BLOOD ORDERABLES Final Re sult Performing Organization Address City/[facility]/ZIP Co de Phone Number [facility] [address] [place] [address] * C3 complement (02/09/2025 11:55 AM EDT) C3 Complement 127 84 - 166 mg/dL 02/09/2025 2:30 PM EDT [facility] Blood Venous blood specimen / Unknown Venipuncture / Unknown 02/09/2025 11:55 AM EDT 02/09/2025 11:55 AM EDT us Jina Gonzalez MD LAB BLOOD ORDERABLES Final Re sult [facility] [address] [place] [address] * Anti-scleroderma antibody (02/09/2025 11:55 AM EDT) SCLERODERMA (SCL-70) (BOUCHRA) ANTIBODY, IGG 39 0 - 40 AU/mL 02/12/2025 10:53 PM EDT [facility] ([employer]) Blood Venous blood specimen / Unknown Venipuncture / Unknown 02/09/2025 11:55 AM EDT 02/09/2025 11:55 AM EDT Narrative [facility] ([facility]) - 02/12/2025 10:53 PM EDT INTERPRETIVE INFORMATION: Scleroderma (Scl-70) (BOUCHRA) Ab, IgG 29 AU/mL or Less ............. Negative 30 - 40 AU/mL ................ Equivocal 41 AU/mL or Greater .......... Positive The presence of Scl-70 antibodies (also referred to as topoisomerase I, fernando-I or AUDI) is considered diagnostic for systemic sclerosis (SSc). Scl-70 antibodies alone are detected in about 20 percent of SSc patients and are associated with the diffuse form of the disease, which may include specific organ involvement and poor prognosis. Scl-70 antibodies have also been reported in a varying percentage of patients with systemic lupus erythematosus (SLE). Scl-70 (fernando-1) is a DNA binding protein and anti-DNA/DNA complexes in the sera of SLE patients may bind to fernando-I, leading to a false-positive result. The presence of Scl-70 antibody in sera may also be due to contamination of recombinant Scl-70 with DNA derived from cellular material used in immunoassays. Strong clinical correlation is recommended if both Scl-70 and dsDNA antibodies are detected. Negative results do not necessarily rule out the presence of SSc. If clinical suspicion remains, consider further testing for centromere, RNA polymerase III and U3-INSPECTOR BALANCE TRUING, PM/Scl, or Th/To antibodies. Performed By: [facility] [address] [place] [address] Incinerator Operator: Anderson Pizarro MD, PhD CLIA Number: [id number] us Jina Gonzalez MD LAB BLOOD ORDERABLES Final Re sult [facility] ([employer]) [address] [place] [address] * (ABNORMAL) ANTI NUCLEAR AB (02/09/2025 11:55 AM EDT) DHEERAJ INTERPRETIVE COMMENT See Note 02/12/2025 8:25 PM EDT [facility] ([employer]) Anti Nuc Ab Screen Detected( H) <1:80 02/12/2025 8:25 PM EDT [facility] ([employer]) Blood Venous blood specimen / Unknown Venipuncture / Unknown 02/09/2025 11:55 AM EDT 02/09/2025 11:55 AM EDT Narrative [facility] ([employer]) - 02/12/2025 8:25 PM EDT Clinical Interpretation: Homogeneous Pattern Clinical associations: SLE, drug-induced SLE or CHRISTOPHER. Main autoantibodies: Anti-dsDNA, anti-histones or anti-chromatin (anti-nucleosome) List of Abbreviations Antimitochondrial antibodies (AMA), Antisynthetase syndrome (ARS), chronic active hepatitis (CAH), inflammatory myopathies (IM) [dermatomyositis (DM), polymyositis (PM), necrotizing autoimmune myopathy (NAM)], interstitial lung disease (ILD), juvenile idiopathic arthritis (CHRISTOPHER), mixed connective tissue disease (MCTD), primary biliary cholangitis (PBC), rheumatoid arthritis (RA), systemic autoimmune rheumatic diseases (SARD), Sjogren syndrome (SjS), systemic lupus erythematosus (SLE), systemic sclerosis (SSc), undifferentiated connective tissue disease (UCTD). INTERPRETIVE INFORMATION: DHEERAJ Interpretive Comment Presence of antinuclear antibodies (DHEERAJ) is a hallmark feature of systemic autoimmune rheumatic diseases (SARD). However, DHEERAJ lacks diagnostic specificity and is associated with a variety of diseases (cancers, autoimmune, infectious, and inflammatory conditions) and may also occur in healthy individuals in varying prevalence. The lack of diagnostic specificity requires confirmation of positive DHEERAJ by more specific serologic tests. DHEERAJ (nuclear reactivity) positive patterns reported include centromere, homogeneous, nuclear dots, nucleolar, or speckled. DHEERAJ (cytoplasmic reactivity) positive patterns reported include reticular/AMA, discrete/GW body-like, polar/golgi-like, cytoplasmic speckled or rods and rings. All positive patterns are reported to endpoint titers (1:2560). Reported patterns may help guide differential diagnosis, although they may not be specific for individual antibodies or diseases. Mitotic staining patterns not reported. Negative results do not necessarily rule out SARD. Performed By: [facility] [address] [place] [address] Incinerator Operator: Anderson Pizarro MD, PhD CLIA Number: [id number] us Jina Gonzalez MD LAB BLOOD ORDERABLES Final Re sult [facility] [employer]) [address] [place] [address] * Anti-DNA antibody, double-stranded (02/09/2025 11:55 AM EDT) Double-Strande d DNA (dsDNA) Ab IgG IFA <1:10 <1:10 02/12/2025 11:[address] [facility] ([facility]) Blood Venous blood specimen / Unknown Venipuncture / Unknown 02/09/2025 11:55 AM EDT 02/09/2025 11:[address] [facility] - 02/12/2025 11:01 PM EDT INTERPRETIVE INFORMATION: Double-Stranded DNA (dsDNA) Antibody, IgG by IFA (using Crithidia luciliae) Positivity for anti-double stranded DNA (anti-dsDNA) IgG antibody is a diagnostic criterion of systemic lupus erythematosus (SLE). The presence of the anti-dsDNA IgG antibody is identified by IFA titer (Crithidia luciliae indirect fluorescent test [BERTIN]). BERTIN is highly specific for SLE with a sensitivity of 50-60 percent. Some patients with early or inactive SLE may be positive for anti-dsDNA IgG by RUBI but negative by BERTIN. If the BERTIN result is negative but the patient has a positive RUBI and clinical suspicion remains, consider antinuclear antibody (DHEERAJ) testing by IFA. Additional information and recommendations for testing may be found at https://[employer]/content/fokwtqwdbk-ayzccp-hefnvydq. Performed By: [facility] [address] [place] [address] Incinerator Operator: Anderson Pizarro MD, PhD CLIA Number: [id number] Jina Gonzalez MD LAB BLOOD ORDERABLES Final Re sult Performing Organization Address [facility] Co de Phone Number [facility] ([facility]) [address] [place] [address] * Protein, Random, Urine with Creatinine (02/09/2025 11:44 AM EDT) Protein, Urine 47 mg/dL 02/09/2025 2:17 PM EDT [facility] Creatinine, Urine 349 mg/dL 02/09/2025 2:17 PM EDT [facility] Protein/Creatin ine Ratio 0.1 mg/mg Creat 02/09/2025 2:17 PM EDT [facility] Urine Urine specimen obtained by clean catch procedure / Unknown Non-blood Collection / Unknown 02/09/2025 11:44 AM EDT 02/09/2025 11:44 AM EDT Jina Gonzalez MD LAB URINE ORDERABLES Final Re sult Performing Organization Address [facility]/ZIP Co de Phone Number [facility] [address] [place] [address] * XR Hips Bilateral 2 Views (02/09/2025 11:17 AM EDT) Anatomical Region Laterality Modality Hip, Pelvis Bilateral Digital Radiogra phy Impressions 02/09/2025 12:08 PM EDT 1. 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 2. Normal evaluation of the bilateral hip joint. 3. Sclerosis and loss of vertebral body height at L4 suggesting compression deformity.. CRITICAL RESULT: No. COMMUNICATION: Per this written report. Drafted by Blayne Zhang MD on 02/09/2025 12:05 PM Final report signed by Blayne Zhang MD on 02/09/2025 12:08 PM Narrative 02/09/2025 12:08 PM EDT CLINICAL INDICATION: hip pain TECHNIQUE: XR HIPS BILATERAL 2 VIEWS, XR HAND WRIST BILATERAL 2 VIEWS COMPARISON: None. FINDINGS: 2 views of the bilateral hand show normal joint space and alignment. Minimal degenerative changes of interphalangeal joints and right third MCP joint. No erosive changes or soft tissue swelling. No inflammatory bone formation. Arterial calcification that is worse on the right than left. 2 views of the bilateral hip show normal hip joint space and alignment. No fracture or osteonecrosis. Pubic symphysis is normal. Mild degenerative changes of the bilateral sacroiliac joint. Possible compression deformity versus degenerative changes at L4. Procedure Note Blayne Zhang MD - 02/09/2025 CLINICAL INDICATION: hip pain TECHNIQUE: XR HIPS BILATERAL 2 VIEWS, XR HAND WRIST BILATERAL 2 VIEWS COMPARISON: None. FINDINGS: 2 views of the bilateral hand show normal joint space and alignment.Minimal degenerative changes of interphalangeal joints and right third MCPjoint. No erosive changes or soft tissue swelling. No inflammatory boneformation. Arterial calcification that is worse on the right than left. 2 views of the bilateral hip show normal hip joint space and alignment. Nofracture or osteonecrosis. Pubic symphysis is normal. Mild degenerativechanges of the bilateral sacroiliac joint. Possible compression deformityversus degenerative changes at L4. IMPRESSION: 1.Osteoarthritis of the hands without findings of rheumatoid arthritis. 2.Normal evaluation of the bilateral hip joint. 3.Sclerosis and loss of vertebral body height at L4 suggestingcompression deformity.. CRITICAL RESULT: No. COMMUNICATION: Per this written report. Drafted by Blayne Zhang MD on 02/09/2025 12:05 PM Final report signed by Blayne Zhang MD on 02/09/2025 12:08 PM us Jina Gonzalez MD IMG XR PROCEDURES Final Resul t * XR Hand and Wrist Bilateral 2 Views (02/09/2025 11:17 AM EDT) Anatomical Region Laterality Modality Hand, Wrist Bilateral Digital Radiogra phy Impressions 02/09/2025 12:08 PM EDT 1. 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 2. Normal evaluation of the bilateral hip joint. 3. Sclerosis and loss of vertebral body height at L4 suggesting compression deformity.. CRITICAL RESULT: No. COMMUNICATION: Per this written report. Drafted by Blayne Zhang MD on 02/09/2025 12:05 PM Final report signed by Blayne Zhang MD on 02/09/2025 12:08 PM Narrative 02/09/2025 12:08 PM EDT CLINICAL INDICATION: hip pain TECHNIQUE: XR HIPS BILATERAL 2 VIEWS, XR HAND WRIST BILATERAL 2 VIEWS COMPARISON: None. FINDINGS: 2 views of the bilateral hand show normal joint space and alignment. Minimal degenerative changes of interphalangeal joints and right third MCP joint. No erosive changes or soft tissue swelling. No inflammatory bone formation. Arterial calcification that is worse on the right than left. 2 views of the bilateral hip show normal hip joint space and alignment. No fracture or osteonecrosis. Pubic symphysis is normal. Mild degenerative changes of the bilateral sacroiliac joint. Possible compression deformity versus degenerative changes at L4. Procedure Note Blayne Zhang MD - 02/09/2025 CLINICAL INDICATION: hip pain TECHNIQUE: XR HIPS BILATERAL 2 VIEWS, XR HAND WRIST BILATERAL 2 VIEWS COMPARISON: None. FINDINGS: 2 views of the bilateral hand show normal joint space and alignment.Minimal degenerative changes of interphalangeal joints and right third MCPjoint. No erosive changes or soft tissue swelling. No inflammatory boneformation. Arterial calcification that is worse on the right than left. 2 views of the bilateral hip show normal hip joint space and alignment. Nofracture or osteonecrosis. Pubic symphysis is normal. Mild degenerativechanges of the bilateral sacroiliac joint. Possible compression deformityversus degenerative changes at L4. IMPRESSION: 1.Osteoarthritis of the hands without findings of rheumatoid arthritis. 2.Normal evaluation of the bilateral hip joint. 3.Sclerosis and loss of vertebral body height at L4 suggestingcompression deformity.. CRITICAL RESULT: No. COMMUNICATION: Per this written report. 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 Rheumatoid factor positive Other and unspecified nonspecific immunological findings Arthralgia, unspecified joint Positive DHEERAJ (antinuclear antibody) Other and unspecified nonspecific immunological findings Raynaud's disease without gangrene ILD (interstitial lung disease) (CMS/HCC) Postinflammatory pulmonary fibrosis documented in this encounter Additional Health Concerns Assessment Noted Time PHQ-9 Depression Total Score: 0 02/10/20 9:03 AM EDT A fall risk assessment has been complete d for the patient 02/09/2025 9:03 AM EDT A Body Mass Index follow-up plan has been documented for the patient 02/09/2025 10:37 AM EDT documented as of this encounter Care Teams Extruder Operator Relationship Specialty Start Date End Date Guera Bermeo APRN [address] [place] [address] PCP - General 02/09/25 documented as of this encounter
--- OUTSIDE RECORDS SUMMARY | 2025-02-09 10:45 | XMS_ITS | Encounter Summary ---
Author Organization Healthcare Address [address] [place] [address] Care Team Providers Care Conditioner Tumbler Operator Name Role Phone Jean-Claude Guerahieu Palmer APRN Primary Care Provider [phone]- [phone] Encounter Details Date Type Department Care Team (Latest Contact Info) Description 02/09/2025 10:45 AM EDT - 02/09/2025 11:59 PM EDT Hospital En[facility] [address], [address] [place] [address] ILD [facility]interstitial lung disease) [facility] Discharge Disposition: Home or Self Care Social History Tobacco Use Types Packs/Day Years Used Date Smoking Tobacco: Never Smokeless Tobacco: Never PHQ-2 Answer Date Recorded Patient Health Questionnaire-2 Score 0 02/09/2025 PHQ-9 Answer Date Recorded Patient Health Questionnaire-9 Score 0 02/09/2025 Sex and Gender Information Value Date Recorded Sex Assigned at Not on file Legal Sex Male 7:17 PM EDT Gender Identity Not on file Sexual Orientation Not on file documented as of this encounter Functional Status * Over the past 2 weeks, how often have you been bothered by any of the following problems? Question Answer Date of Assessment Author Little interest or pleasure in doing things Not at all 02/09/2025 9:03 AM EDT Stu Feliz Feeling down, depressed, or hopeless Not at all 02/09/2025 9:03 AM EDT Stu Feliz Patient Health Questionnaire -2 Score 0 02/09/2025 9:03 AM EDT Stu Feliz * Question Answer Date of Assessment Author Trouble falling or staying a sleep, or sleeping too much Not at all 02/09/2025 9:03 AM EDT Stu Feliz Feeling tired or having godwin le energy Not at all 02/09/2025 9:03 AM EDT Stu Feliz Poor appetite or overeating Not at all 02/09/2025 9: 03 AM EDT Stu Feliz Feeling bad about yourself - or that you are a failure or have let yourself or your family down Not at all 02/09/2025 9:03 AM EDT Stu Feliz Trouble concentrating on thi ngs, such as reading the newspaper or watching television Not at all 02/09/2025 9:03 AM EDT Stu Feliz Moving or speaking so slowly that other people could have noticed? Or the opposite - being so fidgety or restless that you have been moving around a lot more than usual. Not at all 02/09/2025 9:03 AM EDT Stu Costa Thoughts that you would be b zarina [...] Stu Levi documented as of this encounter Medications at Time of Discharge Aspirin Buf,CaCarb-MgCarb- MgO, 81 MG tablet Take 1 tablet by mouth daily. 01/18/2019 atorvastatin (Lipitor) 80 MG tablet Take 1 tablet by mouth daily. 02/05/2025 Breo Ellipta 100-25 MCG/ACT aerosol powder Inhale 1 puff. 03/30/2024 clopidogrel (Plavix) 75 MG tablet Take 1 tablet by mouth daily. 02/06/2025 furosemide (Lasix) 20 MG tablet Take 1 tablet by mouth daily. 01/10/2025 metFORMIN (Glucophage) 1000 MG tablet Take 1 tablet by mouth 2 times a day with meals. mycophenolate (Cellcept) 500 MG tabletIndications: ILD (interstitial lung disease) (CMS/HCC),Pulmonar y hypertension (CMS/HCC) Take 2 tablets by mouth 2 times a day. 120 tablet 2 02/09/2025 potassium chloride CR (K-Tab) 20 MEQ ER tablet Take 1 tablet by mouth daily. 12/27/2024 documented as of this encounter Plan of Treatment Upcoming Encounters Date Type Department Care Team (Late st Contact Info) Description 04/13/2025 9:10 AM EST Office Visit [facility] [address] [place] [address] Krupa Bates MD [address] [place] [address] documented as of this encounter Procedures Procedure Name Priority Date/Time Associated Diagnosis Comments XR HIPS BILATERAL 2 VIEWS Routine 02/09/2025 11:17 AM EDT ILD (interstitial lung disease) (CMS/HCC) XR HAND WRIST BILATERAL 2 VIEWS Routine 02/09/2025 11:17 AM EDT ILD (interstitial lung disease) (CMS/HCC) documented in this encounter Results * XR Hips Bilateral 2 Views (02/09/2025 [...] Visit Diagnoses Diagnosis ILD (interstitial lung disease) (CMS/HCC) Postinflammatory pulmonary fibrosis documented in this encounter Additional Health Concerns Assessment Noted Time PHQ-9 Depression Total Score: 0 02/10/20 25 9:03 AM EDT A fall risk assessment has been complete d for the patient 02/09/2025 9:03 AM EDT A Body Mass Index follow-up plan has been documented for the patient 02/09/2025 10:37 AM EDT documented as of this encounter Care Teams Conditioner Tumbler Operator Relationship Specialty Start Date End Date Guera Bermeo APRN [address] [place] [address] PCP - General 02/09/25 documented as of this encounter
--- OUTSIDE RECORDS SUMMARY | 2025-02-16 10:34 | XMS_ITS | Encounter Summary ---
Author Organization Healthcare Address [address] [place] [address] Care Team Providers Care Pump Station Operator Name Role Phone Guera Bermeo Spencer TRAORE Primary Care Provider [phone]- [phone] Encounter Details Date Type Department Care Team (Late st Contact Info) Description 02/09/2025 Telephone [facility] [address] [place] [id number] Anderson Raya, [place] [address] Social History Tobacco Use Types Packs/Day Years [...] things Not at all 02/09/2025 9:03 AM MINGT Stu Feliz Feeling down, depressed, or hopeless [...] Not at all 02/09/2025 9:03 AM EDT Trini, Stu Moving or speaking so slowly that other people could have noticed? Or the opposite - being so fidgety or restless that you have been moving around a lot more than usual. Not at all 02/09/2025 9:03 AM EDT Stu Feliz Thoughts that you would be b zarina [...] as of this encounter Miscellaneous Notes * Telephone Encounter - Anderson Raya PharmD - 02/09/2025 10:34 AM EDT Per discussion with provider, MMF 1g BID has been ordered at the request of the provider documented in this encounter Plan of Treatment Upcoming Encounters Date Type Department Care Team (Late st Contact Info) Description 04/13/2025 9:10 AM EST Office Visit [facility] Medicine Specialties [address] [place] [address] Krupa Bates MD [address] [place] [address] documented as of this encounter Visit Diagnoses Diagnosis ILD (interstitial lung disease) (CMS/HCC)- Primary Postinflammatory pulmonary fibrosis Pulmonary hypertension (CMS/HCC) Other chronic pulmonary heart diseases documented in this encounter Additional Health Concerns Assessment Noted Time PHQ-9 Depression Total Score: 0 02/10/20 9:03 AM EDT A fall risk assessment has been complete d for the patient 02/09/2025 9:03 AM EDT A Body Mass Index follow-up plan has been documented for the patient 02/09/2025 10:37 AM EDT documented as of this encounter Care Teams Pump Station Operator Relationship Specialty Start Date End Date Guera Bermeo APRN [address] [place] [id number] PCP - General 02/09/25 documented as of this encounter
--- OUTSIDE RECORDS SUMMARY | 2025-02-16 10:35 | XMS_ITS | Encounter Summary ---
Author Organization [facility] Address [address] [place] [address] Care Team Providers Care Education Spec Name Role Phone Derrick Lang MD Primary Care Provider [phone] Encounter Details Date Type Department Care Team (Latest Contact Info) Description 02/02/2025 Travel Social History Tobacco Use Types Packs/Day Years Used Date Smoking Tobacco: Never Alcohol Use Standard Drinks/Week Comments Never 0 (1 standard drink = 0.6 oz pur e alcohol) [facility] Utilities Answer Date Recorded In the past 12 months has [email or web address], gas, oil, or water [employer] threatened to shut off services in your [...] Stability Answer Date Recorded Current Living Arrangements home 01/24 Potentially Unsafe Housing Conditions unable to assess 02/03/2025 Family and Community Support Answer Sushant e [...] GED or equivalent No 02/03/2025 Preferred Language South Korean 02/03/2025 Sex and Gender Information Value Date Recorded Sex Assigned at Not on file Legal Sex Male 9:33 AM EDT Gender Identity Not on file Sexual Orientation Not on file documented as of this encounter Functional Status * Question Answer Date of Assessment Author 1. Wish to be (Past 1 Month) No 025 8:30 PM EDT China Cardoso, SHIRLEY 2. Non-Specific Active Suici mitzi Thoughts (Past 1 Month) No 02/02/2025 8:30 PM EDT Eduard Cardoso, RN * Calculated C-SSRS Risk Score (Lifetime/Recent) Answer Date of Assessment Author No Risk Indicated 02/02/2025 8:30 PM EDT China Fan, SHIRLEY * Crosby Suicide Severity Rating Scale (Screener/Recent Self-Report) Question Answer Date of Assessment Author 6. Suicidal Behavior (Lifetime) No 8:30 PM EDT China Cardoso RN documented as of this encounter Plan of Treatment Upcoming Encounters Date Type Department Care Team (Late st Contact Info) Description 03/10/2025 1:30 PM EDT Appointment [facility] [address] [facility] [address] [place] [address] 05/06/2025 1:30 PM EST Office Visit [facility] [address] [facility] [place] [address] Fanny Sadler APRN [address] [facility] [address] [place] [address] 05/09/2025 11:30 AM EST Office Visit [facility] [address] [place] [address] Jeffery Phillips PA-C [address] [facility] [address] [place], [place] [id number] documented as of this encounter Visit Diagnoses Not on filedocumented in this encounter Care Teams Education Spec Relationship Specialty Start Date End Date Derrick Lang MD [address] [facility] [address] [place] [address] PCP - General Adolescent Medicine 02/02/25 02/02/25 documented as of this encounter
--- OUTSIDE RECORDS SUMMARY | 2025-02-16 10:35 | XMS_ITS | Clinical Summary ---
Author Organization Healthcare Address [address] [place] [address] Care Team Providers Care Animal Care Attendant Name Role Phone Guera Bermeo LEÓN Primary Care Provider [phone] Allergies No known active allergies Medications Aspirin Buf,CaCarb-MgCar b-MgO, 81 MG tablet Take 1 tablet by mouth daily. 01/19/20 19 Active atorvastatin (Lipitor) 80 MG tablet Take 1 tablet by mouth daily. 02/06/20 25 Active clopidogrel (Plavix) 75 MG tablet Take 1 tablet by mouth daily. 02/07/20 25 Active Breo Ellipta 100-25 MCG/ACT aerosol powder Inhale 1 puff. 03/30/20 24 Active furosemide (Lasix) 20 MG tablet Take 1 tablet by mouth daily. 01/11/20 25 Active metFORMIN (Glucophage) 1000 MG tablet Take 1 tablet by mouth 2 times a day with meals. Active potassium chloride CR (K-Tab) 20 MEQ ER tablet Take 1 tablet by mouth daily. 12/28/19 25 Active mycophenolate (Cellcept) 500 MG tabletIndication s:ILD (interstitial lung disease) (CMS/HCC),Pulmon ashish hypertension (CMS/HCC) Take 2 tablets by mouth 2 times a day. 120 tablet 2 02/10/20 25 Active mycophenolate (Cellcept) 250 MG capsule Take 2 capsules by mouth twice a day. 025 Discontinued Active Problems No known active problems Encounters Date Type Department Care Team Description 02/14/2025 Results Follow-Up [facility] Medicine Specialties [address] [place] [address] Jina Gonzalez MD 02/09/2025 10:45 AM EDT - 02/09/2025 11:59 PM EDT Hospital Encounter [facility] Radiology [address], 1[address] [place] [phone] ILD (interstitial lung disease) (CMS/HCC) Discharge Disposition: Home or Self Care 02/09/2025 9:10 AM EDT Consult [facility] Medicine Specialties [address] [place] [phone] Krupa Bates MD ILD (interstitial lung disease) (CMS/HCC) (Primary Dx); Muscle weakness; Pulmonary hypertension ([facility]); Scl-70 antibody positive; Rheumatoid factor positive; Arthralgia, unspecified joint; Positive DHEERAJ (antinuclear antibody); Raynaud's disease without gangrene 02/09/2025 Telephone [facility] Medicine Specialties 0 [facility], [address] [place] [phone] Anderson Raya, PharmD 02/09/2025 Travel from Last 3 Months Immunizations Immunization Administration Dates Next Due Influenza, High-dose, Split Virus, Trivalent, Injectable, preservative free 03/29/2018 Influenza, injectable, quadrivalent, preservativ e free 04/14/2023 Family History Medical History Relation Name Comments [...] Mass Index 21.16 02/09/2025 8:51 AM EDT Plan of Treatment Upcoming Encounters Date Type Department Care Team (Late st Contact Info) Description 04/13/2025 9:10 AM EST Office Visit [facility] Medicine Specialties [address] [place] [address] Krupa Bates MD [address] [place] [phone] Health Maintenance Due Date Last Done Comments [facility]-Medicare Annual Wellness (AWV) 1950 [facility]-Infant/Child/Adol SDOH Screenings 1950 [facility]- SDOH Screenings 01/26/1970 [facility]-Adult SDOH Screenings 01/26/1970 [facility]-DTaP,Tdap,and Td Vaccine s (1 - Tdap) 01/26/1971 [facility]-Pneumococcal Vaccine: 50 + Years (1 of 2 - PCV) 01/26/1971 [facility]-Zoster Vaccines (1 of 2) 01/26/1971 CT Colonography 01/26/1997 Colonoscopy 01/26/1997 FIT-DNA 01/26/1997 FIT 01/26/1997 FOBT 01/26/1997 Sigmoidoscopy 01/26/1997 [facility]-Colorectal Cancer Screening 01/26/1997 [facility]-RSV Vaccine: 60+ Years o r (1 - Risk 60-74 years 1-dose series) 2012 [id number] Vaccine (3 - 2024- season) 2025 04/12/2021, 08/02/2020 [facility]-Influenza Vaccine (#1) 01/24/202504/14, 03/29/2018 [facility]-Depression Screening 02/09/2026 025, 02/09/2025 [facility]-Hepatitis C Screening Completed 02/09/2025 HPV Vaccines Aged Out No longer eligi [...] on patient's age to complete this topic Procedures Procedure Name Priority Date/Time Associated Diagnosis Comments DHEERAJ SINGLE PATTERN (REFLEX ONLY) (SO) Routine 02/09/2025 11:55 AM EDT ILD (interstitial lung disease) ([facility]) DOUBLE-STRANDED DNA (DSDNA) ANTIBODY, IGG BY IFA (SO) Routine 02/09/2025 11:55 AM EDT ILD (interstitial lung disease) (CMS/HCC) ANTINUCLEAR ANTIBODY (DHEERAJ) WITH HEP-2 SUBSTRATE, IGG BY IFA (SO) Routine 02/09/2025 11:55 AM EDT ILD (interstitial lung disease) (CMS/HCC) SCLERODERMA (SCL-70) (BOUCHRA) ANTIBODY, IGG (SO) Routine 02/09/2025 11:55 AM EDT ILD (interstitial lung disease) (CMS/HCC) C3 COMPLEMENT Routine 02/09/2025 11:55 AM EDT ILD (interstitial lung disease) (CMS/HCC) C4 COMPLEMENT Routine 02/09/2025 11:55 AM EDT ILD (interstitial lung disease) (CMS/HCC) C-REACTIVE PROTEIN, PLASMA Routine 02/09/2025 11:55 AM EDT ILD (interstitial lung disease) (CMS/HCC) CYCLIC CITRUL PEPTIDE ANTIBODY IGG Routine 02/09/2025 11:55 AM EDT ILD (interstitial lung disease) (CMS/HCC) BALDERAS/REVENUE ENFORCEMENT COLLECTION AGENT (BOUCHRA) ANTIBODY, IGG (SO) Routine 02/09/2025 11:55 AM EDT ILD (interstitial lung disease) (CMS/HCC) EXTRACTABLE NUCLEAR ANTIGEN ANTIBODIES (SSA 52, SSA 60, AND SSB) (SO) Routine 02/09/2025 11:55 AM EDT ILD (interstitial lung disease) (CMS/HCC) HEPATITIS B CORE TOTAL AB (IGG AND IGM) Routine 02/09/2025 11:55 AM EDT ILD (interstitial lung disease) (CMS/HCC) HEPATITIS B SURFACE ANTIGEN Routine 02/09/2025 11:55 AM EDT ILD (interstitial lung disease) (CMS/HCC) HEPATITIS C ANTIBODY W/REFLEX TO HCV QUANT PCR Routine 02/09/2025 11:55 AM EDT ILD (interstitial lung disease) (CMS/HCC) RHEUMATOID FACTOR, PLASMA Routine 02/09/2025 11:55 AM EDT ILD (interstitial lung disease) (CMS/HCC) QUANTIFERON TB GOLD PLUS Routine 02/09/2025 11:55 AM EDT ILD (interstitial lung disease) (CMS/HCC) TSH Routine 02/09/2025 11:55 AM EDT ILD (interstitial lung disease) (CMS/HCC) Muscle weakness URINE YORK PANEL Routine 02/09/2025 11:4 4 AM EDT ILD (interstitial lung disease) (CMS/HCC) URINALYSIS WITH REFLEX MICROSCOPIC Routine 02/09/2025 11:44 AM EDT ILD (interstitial lung disease) (CMS/HCC) URINALYSIS WITH REFLEX MICROSCOPIC AND CULTURE Routine 02/09/2025 11:44 AM EDT ILD (interstitial lung disease) (CMS/HCC) PROTEIN, URINE, RANDOM WITH CREATININE Routine 02/09/2025 11:44 AM EDT ILD (interstitial lung disease) (CMS/HCC) XR HIPS BILATERAL 2 VIEWS Routine 02/09/2025 11:17 AM EDT ILD (interstitial lung disease) (CMS/HCC) XR HAND WRIST BILATERAL 2 VIEWS Routine 02/09/2025 11:17 AM EDT ILD (interstitial lung disease) (CMS/HCC) from Last 3 Months Results * (ABNORMAL) DHEERAJ Single Pattern (Reflex only) (02/09/2025 11:55 AM EDT) DHEERAJ Pattern Homogeneou s(A) 02/12/2025 8:25 PM EDT [facility] DHEERAJ Titer 1:640(A) 02/12/2025 8:25 PM EDT [facility] Blood Venous blood specimen / Unknown Venipuncture / Unknown 02/09/2025 11:55 AM EDT 02/09/2025 11:55 AM EDT Narrative [facility] ([facility]) - 02/12/2025 8:25 PM EDT Performed By: [employer] [address] [place] [address] Transfer Worker: Anderson Pizarro MD, PhD CLIA Number: [id number] us Jina Gonzalez MD LAB BLOOD ORDERABLES Final Re sult [facility] ([facility]) [address] [place] [address] * ENAII (02/09/2025 11:55 AM EDT) SSA-52 (RO52) (BOUCHRA) Antibody, IgG 3 0 - 40 AU/mL 02/12/2025 10:53 PM EDT [facility]) SSA-60 (RO60) (BOUCHRA) Antibody, IgG 1 0 - 40 AU/mL 02/12/2025 10:53 PM EDT [facility]) SSB (LA) (BOUCHRA) Antibody, IgG 9 0 - 40 AU/mL 02/12/2025 10:53 PM EDT [facility]) Blood Venous blood specimen / Unknown Venipuncture / Unknown 02/09/2025 11:55 AM EDT 02/09/2025 11:55 AM EDT Narrative [facility] REH[facility] I[facility]ZARR[facility]) - 02/12/2025 10:53 PM EDT [...] (PSS) also have this antibody. Performed By: [employer] [address] [place] [id number] Transfer Worker: Anderson Pizarro MD, PhD CLIA Number: [id number] Jina Gonzalez MD LAB BLOOD ORDERABLES Final Re sult Performing Organization Address City/[facility]/ZIP Co de Phone Number [facility]) [address] [phone] * ENAI (02/09/2025 11:55 AM EDT) Balderas/REVENUE ENFORCEMENT COLLECTION AGENT (BOUCHRA) Ab, IgG 3 0 - 19 Units 02/10/2025 11:35 PM EDT [facility] ([place]) Blood Venous blood specimen / Unknown Venipuncture / Unknown 02/09/2025 11:55 AM EDT 02/09/2025 11:55 AM EDT Narrative [facility]) - 02/10/2025 11:35 PM EDT INTERPRETIVE INFORMATION: Balderas/REVENUE ENFORCEMENT COLLECTION AGENT (BOUCHRA) Antibody, IgG 19 Units or Less ............. Negative 20 to 39 Units ............... Weak Positive 40 to 80 Units ............... Moderate Positive 81 Units or greater .......... Strong Positive Balderas/REVENUE ENFORCEMENT COLLECTION AGENT antibodies are frequently seen in patients with mixed connective tissue disease (MCTD) and are also associated with other systemic autoimmune rheumatic diseases (SARDs) such as systemic lupus erythematosus (SLE), systemic sclerosis, and myositis. Antibodies targeting the Balderas/REVENUE ENFORCEMENT COLLECTION AGENT antigenic complex also recognize Balderas antigens, therefore, the Balderas antibody response must be considered when interpreting these results. Performed By: [facility] [address] [place] [address] Transfer Worker: Anderson Pizarro MD, PhD CLIA Number: [id number] Jina Gonzalez MD LAB BLOOD ORDERABLES Final Re sult Performing Organization Address City/[facility] Co de Phone Number [facility]) [address] [phone] * Hepatitis C Antibody (02/09/2025 11:55 AM EDT) Hepatitis C Antibody Negative Negative 02/09/2025 2:[address] [facility] Blood Venous blood specimen / Unknown Venipuncture / Unknown 02/09/2025 11:55 AM EDT 02/09/2025 11:55 AM EDT us Jina Gonzalez MD LAB BLOOD ORDERABLES Final Re sult Performing Organization Address [facility] [place] [address] * Cyclic Citrul Peptide Antibody IgG (02/09/2025 11:55 AM EDT) Pathologist [facility] Cyclic Citrul Peptide Antibody IgG <5.0 <=5.0 U/mL 02/09/2025 3:10 PM EDT [facility] Blood Venous blood specimen / Unknown Venipuncture / Unknown 02/09/2025 11:55 AM EDT 02/09/2025 11:55 AM EDT us Jina Gonzalez MD LAB BLOOD ORDERABLES Final Re sult Performing Organization Address [facility] de Phone Number [facility] [address] [place] [address] * Anti-scleroderma antibody (02/09/2025 11:55 AM EDT) Pathologist [facility] SCLERODERMA (SCL-70) (BOUCHRA) ANTIBODY, IGG 39 0 - 40 AU/mL 02/12/2025 10:[address] [facility] ([place]) Blood Venous blood specimen / Unknown Venipuncture / Unknown 02/09/2025 11:55 AM EDT 02/09/2025 11:55 AM EDT Narrative [facility] ([place]) - 02/12/2025 10:53 PM EDT INTERPRETIVE INFORMATION: [...] testing for centromere, RNA polymerase III and U3-REVENUE ENFORCEMENT COLLECTION AGENT, PM/Scl, or Th/To antibodies. Performed By: [employer] [address] [place] [address] Transfer Worker: Anderson Pizarro MD, PhD CLIA Number: [id number] us Jina Gonzalez MD LAB BLOOD ORDERABLES Final Re sult [facility]) [address] [place] [address] * Anti-DNA antibody, double-stranded (02/09/2025 11:55 AM EDT) Double-Strande d DNA (dsDNA) Ab IgG IFA <1:10 <1:10 02/12/2025 11:01 PM EDT [facility]) Blood Venous blood specimen / Unknown Venipuncture / Unknown 02/09/2025 11:55 AM EDT 02/09/2025 11:55 AM EDT Narrative [facility]) - 02/12/2025 11:01 PM EDT INTERPRETIVE INFORMATION: [...] recommendations for testing may be found at https://[employer].com/content/mjqfynzkix-nxnlkz-rqzkgnqw. Performed By: [employer] [address] [place] [address] Transfer Worker: Anderson Pizarro MD, PhD CLIA Number: [id number] Jina Gonzalez MD LAB BLOOD ORDERABLES Final Re sult Performing Organization Address City/[facility]/ZIP Co de Phone Number [facility] [address] [place] [address] * Hepatitis B Core Total Antibody IgG,IgM (02/09/2025 11:55 AM EDT) Pathologist [facility] Hepatitis B Core Total Antibody IgG,IgM Negative Negative 02/09/2025 2:[address] [facility] Blood Venous blood specimen / Unknown Venipuncture / Unknown 02/09/2025 11:55 AM EDT 02/09/2025 11:55 AM EDT Jina Gonzalez MD LAB BLOOD ORDERABLES Final Re sult [facility] [address] [place] [address] * Quantiferon TB Gold Plus (02/09/2025 11:55 AM EDT) Quantiferon TB Gold Plus Result Negative Negative 02/10/2025 6:[address] [facility] TB Nill Value 0.0429 IU/mL 02/10/2025 6:[address] [facility] TB Antigen 1 0.0017 IU/mL 02/10/2025 6:[address] [facility] TB Antigen 2 -0.0098 IU/mL 02/10/2025 6:[address] [facility] TB Mitogen 9.8471 IU/mL 02/10/2025 6:[address] [facility] Blood Venous blood specimen / Unknown Venipuncture / Unknown 02/09/2025 11:55 AM EDT 02/09/2025 11:[address] [facility] - 02/10/2025 6:03 PM EDT Responses to the Mitogen positive control and occasionally to TB antigen can be above the assay range. For calculation purposes: IFN-gamma values > 10 IU/mL are handled as 10 IU/mL. us Jina Gonzalez MD LAB BLOOD ORDERABLES Final Re sult Performing Organization Address [facility]/[place] [address] * Hepatitis B Surface Antigen (02/09/2025 11:55 AM EDT) Hepatitis B Surf Antigen Negative Negative 02/09/2025 2:[address] [facility] Blood Venous blood specimen / Unknown Venipuncture / Unknown 02/09/2025 11:55 AM EDT 02/09/2025 11:55 AM EDT Result Mick Gonzalez MD LAB BLOOD ORDERABLES Final Re sult Performing Organization Address City/[facility]/[place] [address] * Rheumatoid Factor, Plasma (02/09/2025 11:55 AM EDT) Rheumatoid Factor, Plasma <10 <14 IU/mL 02/09/2025 2:[address] [facility] Blood Venous blood specimen / Unknown Venipuncture / Unknown 02/09/2025 11:55 AM EDT 02/09/2025 11:55 AM EDT us Jina Gonzalez MD LAB BLOOD ORDERABLES Final Re sult [facility] [address] [place] [address] * C3 complement (02/09/2025 11:55 AM EDT) C3 Complement 127 84 - 166 mg/dL 02/09/2025 2:[address] [facility] Blood Venous blood specimen / Unknown Venipuncture / Unknown 02/09/2025 11:55 AM EDT 02/09/2025 11:55 AM EDT us Jina Gonzalez MD LAB BLOOD ORDERABLES Final Re sult Performing Organization Address [facility] Co de Phone Number [facility] [address] [place] [address] * C4 complement (02/09/2025 11:55 AM EDT) C4 Complement 27 13 - 36 mg/dL 02/09/2025 2:[address] [facility] Blood Venous blood specimen / Unknown Venipuncture / Unknown 02/09/2025 11:55 AM EDT 02/09/2025 11:55 AM EDT us Jina Gonzalez MD LAB BLOOD ORDERABLES Final Re sult Performing Organization Address [facility] Co de Phone Number [facility] [address] [place] [address] * C-reactive protein (02/09/2025 11:55 AM EDT) CRP, Plasma <3.0 <=8.0 mg/L 02/09/2025 2:[address] [facility] Blood Venous blood specimen / Unknown Venipuncture / Unknown 02/09/2025 11:55 AM EDT 02/09/2025 11:[address] [facility] - 02/09/2025 2:17 PM EDT This CRP test is appropriate for assessment of infection, systemic inflammation and/or tissue injury. To assess cardiovascular disease risk order high sensitivity CRP (CRPH). us Jina Gonzalez MD LAB BLOOD ORDERABLES Final Re sult [facility] [address] [place] [address] * (ABNORMAL) ANTI NUCLEAR AB (02/09/2025 11:55 AM EDT) DHEERAJ INTERPRETIVE COMMENT See Note 02/12/2025 8:25 PM EDT [facility] Anti Nuc Ab Screen Detected( H) <1:80 02/12/2025 8:25 PM EDT [facility]) Blood Venous blood specimen / Unknown Venipuncture / Unknown 02/09/2025 11:55 AM EDT 02/09/2025 11:55 AM EDT Narrative [facility] ([facility]) - 02/12/2025 8:25 PM EDT Clinical Interpretation: [...] not necessarily rule out SARD. Performed By: [facility] [address] [place] [address] Transfer Worker: Anderson Pizarro MD, PhD CLIA Number: [id number] Jina Gonzalez MD LAB BLOOD ORDERABLES Final Re sult Performing Organization Address [facility] Co de Phone Number [facility] ([facility]) [address] [place] [address] * (ABNORMAL) Thyroid Stimulating Hormone, Plasma (02/09/2025 11:55 AM EDT) Pathologist [facility] Thyroid Stimulating Hormone, Plasma 5.94(H) 0.40 - 4.20 uIU/mL 02/09/2025 2:[address] [facility] Blood Venous blood specimen / Unknown Venipuncture / Unknown 02/09/2025 11:55 AM EDT 02/09/2025 11:55 AM EDT Jina Gonzalez MD LAB BLOOD ORDERABLES Final Re sult Performing Organization Address City/[facility]/ZIP Co de Phone Number [facility] [address] [place] [address] * Urine York Panel (02/09/2025 11:44 AM EDT) Pathologist [facility] Extra Reflex urine culture not indicated 02/09/2025 8:[address] [facility] Comment: Previously prelim verified as Specimen evaluation in progress on 02/09/2025 at 1401 EDT. Previously prelim verified as Specimen evaluation in progress on 02/09/2025 at 1501 EDT. Previously prelim verified as Specimen evaluation in progress on 02/09/2025 at 1601 EDT. Previously prelim verified as Specimen evaluation in progress on 02/09/2025 at 1701 EDT. Previously prelim verified as Specimen evaluation in progress on 02/09/2025 at 1801 EDT. Previously prelim verified as Specimen evaluation in progress on 02/09/2025 at 1901 EDT. Urine Urine specimen obtained by clean catch procedure / Unknown Non-blood Collection / Unknown 02/09/2025 11:44 AM EDT 02/09/2025 11:44 AM EDT Jina Gonzalez MD LAB URINE ORDERABLES Final Re sult Performing Organization Address [facility] Co de Phone Number [facility] [address] [place] [address] * Protein, Random, Urine with Creatinine (02/09/2025 11:44 AM EDT) Protein, Urine 47 mg/dL 02/09/2025 2:[address] [facility] Creatinine, Urine 349 mg/dL 02/09/2025 2:[address] [facility] Protein/Creatin ine Ratio 0.1 mg/mg Creat 02/09/2025 2:[address] [facility] Urine Urine specimen obtained by clean catch procedure / Unknown Non-blood Collection / Unknown 02/09/2025 11:44 AM EDT 02/09/2025 11:44 AM EDT us Jina Gonzalez MD LAB URINE ORDERABLES Final Re sult Performing Organization Address [facility] de Phone Number [facility] [address] [place] [address] * (ABNORMAL) Urinalysis with reflex microscopic (Culture NOT Included) (02/09/2025 11:44 AM EDT) Color, Urine Dark Yellow LAB URINALYSIS - AUTOMATED METHOD 02/09/2025 2:[address] [facility] Clarity, Urine Clear LAB URINALYSIS - AUTOMATED METHOD 02/09/2025 2:[address] [facility] Spec Pavo, Urine >1.030(H) 1.005 - 1.030 LAB URINALYSIS - AUTOMATED METHOD 02/09/2025 2:[address] [facility] pH, Urine 5.5 5.0 - 8.0 LAB URINALYSIS - AUTOMATED METHOD 02/09/2025 2:[address] [facility] Protein, Urine 30(A) Negative mg/dL LAB URINALYSIS - AUTOMATED METHOD 02/09/2025 2:[address] [facility] Glucose, Urine Negative Negative mg/dL LAB URINALYSIS - AUTOMATED METHOD 02/09/2025 2:[address] [facility] Ketones, Urine 15(A) Negative mg/dL LAB URINALYSIS - AUTOMATED METHOD 02/09/2025 2:[address] [facility] Blood, Urine Negative Negative LAB URINALYSIS - AUTOMATED METHOD 02/09/2025 2:[address] [facility] Bilirubin, Urine Negative Negative LAB URINALYSIS - AUTOMATED METHOD 02/09/2025 2:[address] [facility] Urobilinogen, Urine 1.0 0.2 to 1.0 mg/dL LAB URINALYSIS - AUTOMATED METHOD 02/09/2025 2:[address] [facility] Leukocytes, Urine Negative Negative LAB URINALYSIS - AUTOMATED METHOD 02/09/2025 2:[address] [facility] Nitrite, Urine Negative Negative LAB URINALYSIS - AUTOMATED METHOD 02/09/2025 2:[address] [facility] Urine Urine specimen obtained by clean catch procedure / Unknown Non-blood Collection / Unknown 02/09/2025 11:44 AM EDT 02/09/2025 11:44 AM EDT us Jina Gonzalez MD LAB URINE ORDERABLES Final Re sult [facility] [address] [place] [address] * XR Hips Bilateral 2 Views (02/09/2025 [...] MD IMG XR PROCEDURES Final Resul t from Last 3 Months Insurance MEDICARE [facility] Care Teams Animal Care Attendant Relationship Specialty Start Date End Date Guera Bermeo APRN [address] [place] [address] PCP - General 02/09/25
--- OUTSIDE RECORDS SUMMARY | 2025-02-16 10:35 | XMS_ITS | Clinical Summary ---
Author Organization [facility] Address [address] [place] [address] Care Team Providers Care Cereal Popper Name Role Phone Guera Bermeo APRN Primary Care Provider [phone] Allergies No known active allergies Medications metFORMIN (GLUCOPHAGE) 1000 MG tablet Take 1 tablet by mouth 2 (Two) Times a Day With Meals. Active ASPIRIN 81 PO Take 1 tablet by mouth Daily. Active bisoprolol (ZEBeta) 5 MG tablet Take 0.5 tablets by mouth Daily. Active mycophenolate (CELLCEPT) 250 MG capsule Take 2 capsules by mouth 2 (Two) Times a Day. Active isosorbide mononitrate (IMDUR) 30 MG 24 hr tablet Take 0.5 tablets by mouth Daily. Active furosemide (LASIX) 20 MG tablet Take 1 tablet by mouth Daily. 5 Active potassium chloride ER (K-TAB) 20 MEQ tablet controlled-relea se ER tablet Take 1 tablet by mouth Daily. 5 Active clopidogrel (PLAVIX) 75 MG tablet Take 1 tablet by mouth Daily. 30 tablet 2 02/05/2025 2:10 PM EDT 5 Active atorvastatin (LIPITOR) 80 MG tablet Take 1 tablet by mouth Every Night. 90 tablet 02/05/2025 2:10 PM EDT 5 Active atorvastatin (LIPITOR) 10 MG tablet Take 1 tablet by mouth Daily. 02/06/20 25 Discontinu ed(Stop Taking at Discharge) Active Problems Problem Noted Date Diagnosed Date Osteoarthritis 10/20/2023 Anemia 10/17/2023 Carotid artery stenosis 10/17/2023 Rheumatoid arthritis 10/17/2023 Encounter for long-term (cur rent) use of high-risk medication 10/17/2023 Primary osteoarthritis involving multiple joints 10/17/2023 Current use of steroid medication 10/17/2023 CAD (coronary artery disease) 10/17/2023 Diabetes 10/17/2023 Hypertension 10/17/2023 Hypercholesteremia 10/17/2023 Stroke 10/17/2023 Renal disease 10/17/2023 Encounters Date Type Department Care Team Description 02/08/2025 Readmission Management [facility] [address] [place] [phone] Karina Vidal RN 02/08/2025 Telephone [facility] MEDICAL [facility] NEUROSURGERY [address] [facility] [address] [place] [phone] RAMSEY-RESTRICTION S 02/07/2025 Readmission Management [facility] [address] [place] [address] Maria De Jesus Cline RN 02/04/2025 9:25 AM EDT - 02/04/2025 11:25 AM EDT Surgery [facility] [address] [place] [address] Mason Desouza MD Left Carotid Stent [[id number] (CPT )] 02/02/2025 6:25 PM EDT - 02/05/2025 4:05 PM EDT Hospital Encounter [facility] 2B ICU [address] [place] [phone] Vidhya Shields MD Anderson, Laurie, MD Shields, Daniel Alan, DO Bansal, Arvind K, MD Stenosis of left carotid artery (Primary Dx); Dysarthria; Aphasia; Cerebrovascular accident (CVA) due to bilateral stenosis of middle cerebral arteries Discharge Disposition: Home-Health Care [facility] 02/02/2025 Travel from Last 3 Months Social History Tobacco Use Types Packs/Day Years Used Date Smoking Tobacco: Never Tobacco Cessation:Counseling Given: Not Answered Alcohol Use Standard Drinks/Week Comments Never 0 (1 standard drink = 0.6 oz pur e alcohol) [facility] Utilities Answer Date Recorded In the past 12 months has th e electric, gas, oil, or water company threatened [...] GED or equivalent No 02/03/2025 Preferred Language Somali 02/03/2025 Sex and Gender Information Value Date [...] Mass Index 27.44 02/03/2025 11:00 AM EDT Plan of Treatment Upcoming Encounters Date Type Department Care Team (Late st Contact Info) Description 03/10/2025 1:30 PM EDT Appointment [facility] DIABETES ED [address] [facility] [address] [place] [address] 05/06/2025 1:30 PM EST Office Visit [facility] NEUROLOGY [address] [facility] [address] [place] [address] Fanny Sadler APRN [address] [facility] [address] [place] [id number] 05/09/2025 11:30 AM EST Office Visit [facility] NEUROSURGERY [address] [facility] [address] [place] [phone] Jeffery Phillips PA-C [address] [facility] [address] [place] [address] Health Maintenance Due Date Last Done Comments DIABETIC EYE EXAM 01/26/1962 DIABETIC FOOT EXAM 01/26/1962 URINE MICROALBUMIN-CREATININE RATIO (uACR) 01/26/1962 Pneumococcal Vaccine 50+ (1 of 2 - PCV) 01/26/1971 TDAP/TD VACCINES (1 - Tdap) 01/26/1971 ZOSTER VACCINE (1 of 2) 01/26/1971 COLOGUARD 01/26/1997 COLON CANCER SCREENING 5 YEA R SIGMOIDOSCOPY 01/26/1997 COLONOSCOPY 01/26/1997 COLORECTAL CANCER SCREENING 01/26/1997 CT COLONOGRAPHY 01/26/1997 FECAL OCCULT BLOOD TEST 01/26/1997 FIT Testing (1 year) 01/26/1997 ANNUAL WELLNESS VISIT 10/17/2023 HEPATITIS C SCREENING 10/17/2023 INFLUENZA VACCINE 12/24/2024 04/14/2023, 03/29/2018 COVID-19 Vaccine ( season) 2025, 08/02/2020 HEMOGLOBIN A1C 08/03/2025 02/03/2025 LIPID PANEL 02/03/2026 02/03/2025 Medical Devices Implanted Type Area Hypnotherapist Device Identifier Shelf Expiration Date Model / Serial / Lot Stnt Carotid Xact Tpr 10 To 8x40mm - [id number] Implanted:Qty: 1 on 02/04/2025 by Mason Desouza MD at [facility] [employer] [id number] / / [id number] Procedures Procedure Name Priority Date/Time Associated Diagnosis [...] GLUCOSE FINGERSTICK Routine 02/03/2025 12:28 PM EDT COMPREHENSIVE METABOLIC PANEL Urgent 02/03/2025 11:39 AM EDT CBC (NO DIFF) Urgent 02/03/2025 11:39 AM EDT LIPID PANEL Urgent 02/03/2025 11:39 AM EDT HEMOGLOBIN A1C Urgent 02/03/2025 11:39 AM EDT DUPLEX CAROTID BILATERAL CAR - PERFORMED PROCEDURE Routine 02/03/2025 11:00 AM EDT ECHO COMPLETE W/ DOPPLER AND COLOR FLOW Routine 02/03/2025 11:00 AM EDT POCT GLUCOSE FINGERSTICK Routine 02/03/2025 9:32 AM EDT MRI BRAIN WO CONTRAST Routine 02/03/2025 3:31 AM EDT POCT GLUCOSE FINGERSTICK Routine 02/02/2025 10:[address] OUTSIDE HEAD Routine 02/02/2025 6:[address] OUTSIDE NECK Routine 02/02/2025 6:[address] OUTSIDE HEAD Routine 02/02/2025 6:44 PM EDT POCT GLUCOSE FINGERSTICK Routine 02/02/2025 6:32 PM EDT SCANNED EKG 02/02/2025 SCANNED - IMAGING 02/02/2025 SCANNED - IMAGING 02/02/2025 SCANNED - IMAGING 02/02/2025 from Last 3 Months Results * POC Glucose 4x Daily Before Meals & at Bedtime (02/05/2025 11:37 AM EDT) Only the most recent of12 resultswithin the time period is included. Glucose 73 70 - 130 mg/dL 02/05/2025 11:43 AM EDT [facility] Comment:Serial Number: [id number]: [id number] Blood 02/05/2025 11:3 7 AM EDT 02/05/2025 11:43 AM EDT Beckie Hsu MD POINT OF CARE TEST ORDERABLES Final Result [facility]
[address] [place] [address], * DUPLEX CAROTID LEFT CAR - PERFORMED [...] sheath TR band right wrist Surgeon: Mason ARZOLA Assistants Complications none apparent ACT greater than [...] point in time navigation of a 5 Djib[place]ian Peoples catheter into the above selected vessels was performed with little difficulty diagnostic angiograms were performed using 8-10 cc of dilute Visipaque 320 contrast with selective catheterization of the left upper extremity left common right common and right upper extremity and right vertebral At this point time exchange link catheterization in the left common carotid artery was performed. With a Kouts destination the Dunbar was placed in the [...] P2Y12 Platelet Inhibition (02/04/2025 9:09 AM EDT) Only the most recent of2 resultswithin the time period is included. P2Y12 Reactivity Unit 180 PRU DISK DIFFUSION 02/04/2025 9:50 AM EDT [facility] Blood Venipuncture / Unknown 02/04/2025 9:09 AM EDT 02/04/2025 9:17 AM EDT Narrative [facility] - 02/04/2025 9:50 AM EDT P2Y12 [...] PA-C LAB BLOOD ORDERABLES Final Res ult [facility]
[address] [place] [address], * (ABNORMAL) Basic Metabolic Panel (02/04/2025 7:23 AM EDT) Glucose 92 65 - 99 mg/dL 02/04/2025 8:05 AM EDT [facility] BUN 20.5 8.0 - 23.0 mg/dL 02/04/2025 8:05 AM EDT [facility] Creatinine 1.26 0.76 - 1.27 mg/dL 02/04/2025 8:05 AM EDT [facility] Sodium 139 136 - 145 mmol/L 02/04/2025 8:05 AM EDT [facility] Potassium 4.6 3.5 - 5.2 mmol/L 02/04/2025 8:05 AM EDT [facility] Comment:Slight hemolysis det ected by analyzer. Result may be falsely elevated. Chloride 106 98 - 107 mmol/L 02/04/2025 8:05 AM EDT [facility] CO2 21.0(L) 22.0 - 29.0 mmol/L 02/04/2025 8:05 AM EDT [facility] Calcium 9.0 8.6 - 10.5 mg/dL 02/04/2025 8:05 AM EDT [facility] BUN/Creatinine Ratio 16.3 7.0 - 25.0 02/04/2025 8:05 AM EDT [facility] Anion Gap 12.0 5.0 - 15.0 mmol/L 02/04/2025 8:05 AM EDT [facility] eGFR 60.2 >60.0 mL/min/1.7 3 02/04/2025 8:05 AM EDT [facility] Blood Venipuncture / Unknown 02/04/2025 7:23 AM EDT 02/04/2025 7:27 AM EDT [facility] - 02/04/2025 8:05 AM EDT GFR [...] DO LAB BLOOD ORDERABLES Birgit bello Result [facility]
[address] [place] [address], * (ABNORMAL) CBC (No Diff) (02/03/2025 11:39 AM EDT) WBC 7.64 3.40 - 10.80 10*3/mm3 02/03/2025 12:44 PM EDT [facility] RBC 4.31 4.14 - 5.80 10*6/mm3 02/03/2025 12:44 PM EDT [facility] Hemoglobin 12.4(L) 13.0 - 17.7 g/dL 02/03/2025 12:44 PM EDT [facility] Hematocrit 40.3 37.5 - 51.0 % 02/03/2025 12:44 PM EDT [facility] MCV 93.5 79.0 - 97.0 fL 02/03/2025 12:44 PM EDT [facility] MCH 28.8 26.6 - 33.0 pg 02/03/2025 12:44 PM EDT [facility] MCHC 30.8(L) 31.5 - 35.7 g/dL 02/03/2025 12:44 PM EDT [facility] RDW 12.8 12.3 - 15.4 % 02/03/2025 12:44 PM EDT [facility] RDW-SD 44.2 37.0 - 54.0 fl 02/03/2025 12:44 PM EDT [facility] MPV 9.9 6.0 - 12.0 fL 02/03/2025 12:44 PM EDT [facility] Platelets 174 140 - 450 10*3/mm3 02/03/2025 12:44 PM EDT [facility] Blood Venipuncture / Unknown 02/03/2025 11:39 AM EDT 02/03/2025 12:22 PM EDT Beckie Hsu MD LAB BLOOD ORDERABLES Final Re sult [facility]
[address] [place] [address], * Hemoglobin A1c (02/03/2025 11:39 AM EDT) Hemoglobin A1C 5.42 4.80 - 5.60 % 02/03/2025 1:21 PM EDT [facility] Blood Venipuncture / Unknown 02/03/2025 11:39 AM EDT 02/03/2025 12:22 PM EDT Narrative [facility] - 02/03/2025 1:21 PM EDT Hemoglobin A1C Ranges: Increased Risk for Diabetes 5.7% to 6.4% Diabetes >= 6.5% Diabetic Goal < 7.0% Estrella Hsu STEAM FITTER SUPERVISOR MAINTENANCE LAB BLOOD ORDERABLE S Final Result [facility]
[address] [place] [address], * (ABNORMAL) Lipid Panel (02/03/2025 11:39 AM EDT) Total Cholesterol 93 0 - 200 mg/dL 02/03/2025 12:47 PM EDT [facility] Triglycerides 83 0 - 150 mg/dL 02/03/2025 12:47 PM EDT [facility] HDL Cholesterol 24(L) 40 - 60 mg/dL 02/03/2025 12:47 PM EDT [facility] LDL Cholesterol 52 0 - 100 mg/dL 02/03/2025 12:47 PM EDT [facility] VLDL Cholesterol 17 5 - 40 mg/dL 02/03/2025 12:47 PM EDT [facility] LDL/HDL Ratio 2.18 02/03/2025 12:47 PM EDT [facility] Blood Venipuncture / Unknown 02/03/2025 11:39 AM EDT 02/03/2025 12:22 PM EDT Narrative [facility] - 02/03/2025 12:47 PM EDT Cholesterol [...] the NIH LDL-C calculation. us Estrella Hsu STEAM FITTER SUPERVISOR MAINTENANCE LAB BLOOD ORDERABLE S Final Result [facility]
[address] [place] [address], * (ABNORMAL) Comprehensive Metabolic Panel (02/03/2025 11:39 AM EDT) [facility] Glucose 90 65 - 99 mg/dL 02/03/2025 12:47 PM EDT [facility] BUN 24.7(H) 8.0 - 23.0 mg/dL 02/03/2025 12:47 PM EDT [facility] Creatinine 1.39(H) 0.76 - 1.27 mg/dL 02/03/2025 12:47 PM EDT [facility] Sodium 137 136 - 145 mmol/L 02/03/2025 12:47 PM EDT [facility] Potassium 4.8 3.5 - 5.2 mmol/L 02/03/2025 12:47 PM EDT [facility] Comment:Specimen hemolyzed. Result may be falsely elevated. Chloride 102 98 - 107 mmol/L 02/03/2025 12:47 PM EDT [facility] CO2 23.5 22.0 - 29.0 mmol/L 02/03/2025 12:47 PM EDT [facility] Calcium 9.3 8.6 - 10.5 mg/dL 02/03/2025 12:47 PM EDT [facility] Total Protein 7.1 6.0 - 8.5 g/dL 02/03/2025 12:47 PM EDT [facility] Albumin 3.8 3.5 - 5.2 g/dL 02/03/2025 12:47 PM EDT [facility] ALT (SGPT) 10 1 - 41 U/L 02/03/2025 12:47 PM EDT [facility] AST (SGOT) 21 1 - 40 U/L 02/03/2025 12:47 PM EDT [facility] Alkaline Phosphatase 86 39 - 117 U/L 02/03/2025 12:47 PM EDT [facility] Total Bilirubin 0.3 0.0 - 1.2 mg/dL 02/03/2025 12:47 PM EDT [facility] Globulin 3.3 gm/dL 02/03/2025 12:47 PM EDT [facility] Comment:Calculated Result A/G Ratio 1.2 g/dL 02/03/2025 12:47 PM EDT [facility] BUN/Creatinine Ratio 17.8 7.0 - 25.0 02/03/2025 12:47 PM EDT [facility] Anion Gap 11.5 5.0 - 15.0 mmol/L 02/03/2025 12:47 PM EDT [facility] eGFR 53.5(L) >60.0 mL/min/1.7 3 02/03/2025 12:47 PM EDT [facility] Blood Venipuncture / Unknown 02/03/2025 11:39 AM EDT 02/03/2025 12:22 PM EDT [facility] - 02/03/2025 12:47 PM EDT GFR [...] DO LAB BLOOD ORDERABLES Birgit bello Result [facility]
[address] [place] [address], * DUPLEX CAROTID BILATERAL CAR - PERFORMED [...] Left Vertebral: Antegrade flow noted. us Estrella Hsu STEAM FITTER SUPERVISOR MAINTENANCE CV VASCULAR ORDERAB LES Final Result * ECHO COMPLETE W/ DOPPLER AND COLOR FLOW (02/03/2025 11:00 AM EDT) [facility] 2D AUTO EF 64.4 % LVIDd 4.1 [...] is technically adequate for diagnosis. Estrella Hsu APRN CV ECHO ORDERABLES Final Result * MRI Brain Without Contrast (02/03/2025 3:31 [...] MD 02/03/2025 6:05 AM EDT Workstation ID: [id number] Narrative 02/03/2025 6:05 AM EDT MRI BRAIN [...] with moderate generalized volume loss and typical [id number] subcortical and pontine white matter changes, nonspecific [...] MD 02/03/2025 6:05 AM EDT Workstation ID: [id number] Estrella Hsu APRN IMG MRI ORDERABLES Final Result * CT Outside Neck (02/02/2025 6:44 PM EDT) Narrative SYSTEMGENERATED, DOCUMENTATION - 02/02/2025 6:44 PM EDT This procedure was auto-finalized with no dictation required. us Radiant Outside Films IMG CT ORDERABLES Final Re sult * CT Outside Head (02/02/2025 6:44 PM EDT) Only the most recent of2 resultswithin the time period is included. Narrative SYSTEMGENERATED, DOCUMENTATION - 02/02/2025 6:44 PM EDT This procedure was auto-finalized with no dictation required. us Radiant Outside Films IMG CT ORDERABLES Final Re sult * ECG Scan (02/02/2025) [facility] New Onbase ECG ORDERABLES Final Result * IMAGING SCANNED (02/02/2025) Only the most recent of3 resultswithin the time period is included. Anatomical Region Laterality Modality Radiographic Nancy ging [facility] New Onbase IMG DIAGNOSTIC IMAGING ORDERA BLES Final Result from Last 3 Months Insurance MEDICARE A & B HEALTH CARE OPTIONS Advance Directives * CPR (Attempt to Resuscitate) (Latest Code Status on File) Date Activated Date Inactivated Comments 02/02/2025 9:09 PM 02/05/2025 6:18 PM Question Answer Comments Code Status (Patient has no pulse and is not breathing): CPR (Attempt to Resuscitate) Medical Interventions (Patie nt has pulse or is breathing): Full Support Level Of Support Discussed With: Patient Care Teams Cereal Popper Relationship Specialty Start Date End Date Guera Bermeo APRN [address] [place] [address] [facility] [place] [address] PCP - General Internal Medicine 02/03/25
--- OUTSIDE RECORDS SUMMARY | 2025-02-16 10:35 | XMS_ITS | Encounter Summary ---
Author Organization [facility] Address [address] [place] [address] Care Team Providers Care Software Development Test Engineer Name Role Phone Guera Bermeo APRN Primary Care Provider [phone] Encounter Details Date Type Department Care Team (Late st Contact Info) Description 02/07/2025 Readmission Management [facility] [address] [place] [phone] Maria De Jesus Cline, RN Social History Tobacco Use Types Packs/Day Years Used Date Smoking Tobacco: Never Alcohol Use Standard Drinks/Week Comments Never 0 (1 standard drink = 0.6 oz pur e alcohol) [facility] Utilities Answer Date Recorded In the past 12 months has [employer], gas, oil, or water [employer] threatened to shut off services in your [...] GED or equivalent No 02/03/2025 Preferred Language Irish 02/03/2025 Sex and Gender Information Value Date Recorded Sex Assigned at Not on file Legal Sex Male 9:33 AM EDT Gender Identity Not on file Sexual Orientation Not on file documented as of this encounter Miscellaneous Notes * Outreach Note - Maria De Jesus Cline RN - 02/07/2025 9:10 AM EDT Images from the original note were not included. Prep Survey Flowsheet Row Responses Voodoo facility patient discharged from? [place] Is LACE score less than 10 ? No Eligibility Readm Mgmt Discharge diagnosis STROKE Does the patient have one of the following disease processes/diagnoses(primary or secondary)? Stroke Does the patient have Home health ordered? Yes What is the Home health agency? [facility] Is there a DME ordered? No [Shower chair, walker, rolling walker] Prep survey completed? Yes Procedures: Procedure(s): 02/04/25 Left Carotid Stent Imaging: MRI Brain Without Contrast Result Date: 02/03/2025 Impression: Small areas of acute cortical infarct are present within the left frontal and temporal lobes, without evidence of associated hemorrhage or significant mass effect. MARICHUY Valdez RN documented in this encounter Plan of Treatment Upcoming Encounters Date Type Department Care Team (Late st Contact Info) Description 03/10/2025 1:30 PM EDT Appointment [facility] ED [address] [facility] [address] [place] [phone] 05/06/2025 1:30 PM EST Office Visit [facility] [address] [facility] [address] [place] [address] Fanny Sadler APRN [address] [facility] [address] [address] 05/09/2025 11:30 AM EST Office Visit [facility] [address] [facility] [address] [place] [address] Jeffery Phillips PA-C [address] [facility] [address] [place] [address] documented as of this encounter Visit Diagnoses Not on filedocumented in this encounter Care Teams Software Development Test Engineer Relationship Specialty Start Date End Date Guera Bermeo APRN [address] [place] [address] [address] [place] [address] PCP - General Internal Medicine 02/03/25 documented as of this encounter
--- OUTSIDE RECORDS SUMMARY | 2025-02-16 10:35 | XMS_ITS | Encounter Summary ---
[facility] Address [address] [place] [address] Care Team Providers Care Datastage Developer Name Role Phone Jean-Claude Guera LEÓN Primary Care Provider [phone] Encounter Details Date Type Department Care Team (Late st Contact Info) Description 02/08/2025 Readmission Management [facility] NURSE CALL CENTER [address] [place] [address] Karina Vidal, RN Social History Tobacco Use Types Packs/Day Years Used Date Smoking Tobacco: Never Alcohol Use Standard Drinks/Week Comments Never 0 (1 standard drink = 0.6 oz pur e alcohol) [facility] Utilities Answer Date Recorded In the past 12 months has [employer], gas, oil, or water company threatened [...] GED or equivalent No 02/03/2025 Preferred Language Malawian 02/03/2025 Sex and Gender Information Value Date Recorded Sex Assigned at Not on file Legal Sex Male 9:33 AM EDT Gender Identity Not on file Sexual Orientation Not on file documented as of this encounter Miscellaneous Notes * Outreach Note - Karina Vidal RN - 02/08/2025 9:56 AM EDT Stroke Week 1 Survey Flowsheet Row Responses [facility] facility patient discharged from? [place] Does the patient have one of the following disease processes/diagnoses(primary or secondary)? Stroke Week 1 attempt successful? Yes Call start time [phone] Call end time [phone] Discharge diagnosis STROKE Person spoke with today (if not patient) and relationship pt Meds reviewed with patient/caregiver? Yes Is the patient having any side effects they believe may be caused by any medication additions or changes? No Does the patient have all medications ordered at discharge? Yes Is the patient taking all medications as directed (includes completed medication regime)? Yes Does the patient have a primary care provider? Yes Does the patient have an appointment with their PCP within 7 days of discharge? Yes Has the patient kept scheduled appointments due by today? N/A [facility] St[facility] requests you follow up with them within 30 days for important follow up care. Please call [phone] to schedule this appointment. Thank you. Yes What is the Home health agency? [facility] Has home health visited the patient within 72 hours of discharge? Yes Psychosocial issues? No Does the patient require any assistance with activities of daily living such as eating, bathing, dressing, walking, etc.? No Does the patient have any residual symptoms from stroke/TIA? Yes Residual symptoms comments speech Does the patient understand the diet ordered at discharge? Yes Did the patient receive a copy of their discharge instructions? Yes Nursing interventions Reviewed instructions with patient What is the patient's perception of their health status since discharge? Improving Is the patient/caregiver able to teach back the risk factors for a stroke? Diabetes Is the patient/caregiver able to teach back signs and symptoms related to disease process for when to call PCP? Yes Is the patient/caregiver able to teach back signs and symptoms related to disease process for when to call 911? Yes If the patient is a current smoker, are they able to teach back resources for cessation? Not a smoker Is the patient/caregiver able to teach back the hierarchy of who to call/visit for symptoms/problems? PCP, Specialist, Home health nurse, Urgent Care, ED, 911 Yes Is the patient able to teach back FAST for Stroke? B alance: Watch for sudden loss of balance, E yes: Check for vision loss, F perry: Look for an uneven smile, A rm: Check if one arm is weak, S peech: Listen for slurred speech, T raimundo: Call right away Week 1 call completed? Yes Is the patient interested in additional calls from an ambulatory rn case management? No Would this patient benefit from a [facility]? No Wrap up additional comments pt doing well Has stroke clinic appt scheduled per spouse Call end time [phone] KARINA T - Registered Nurse documented in this encounter Plan of Treatment Upcoming Encounters Date Type Department Care Team (Late st Contact Info) Description 03/10/2025 1:30 PM EDT Appointment [facility] DIABETES ED [address] [facility] [address] [place] [phone] 05/06/2025 1:30 PM EST Office Visit [facility] NEUROLOGY [address] [facility] [address] [place] [address] Fanny Sadler APRN [address] [facility] [address] [address] 05/09/2025 11:30 AM EST Office Visit [facility] NEUROSURGERY [address] [place] [address] Jeffery Phillips PA-C [address] [facility] [address] [place], [place] [id number] documented as of this encounter Visit Diagnoses Not on filedocumented in this encounter Care Teams Datastage Developer Relationship Specialty Start Date End Date Guera Bermeo APRN [address] [place] [address] [address] [place] [address] PCP - General Internal Medicine 02/03/25 documented as of this encounter
--- OUTSIDE RECORDS SUMMARY | 2025-02-16 10:36 | XMS_ITS | Encounter Summary ---
[facility] Address [address] [place] [id number] Care Team Providers Care Sheet Turner Name Role Phone Karli Bermeonihieu TRAORE Primary Care Provider Reason for Visit * Reason Onset Date Comments DR DE LOS SANTOS 02/08/2025 Encounter Details Date Type Department Care Team (Late st Contact Info) Description 02/08/2025 Telephone [facility] NEUROSURGERY [address] [address] Mason Desouza MD [address] [facility] [address] [place] [address] DR DE LOS SANTOS Social History Tobacco Use Types Packs/Day Years Used Date Smoking Tobacco: Never Alcohol Use Standard Drinks/Week Comments Never 0 (1 standard drink = 0.6 oz pur e alcohol) [facility] Utilities Answer Date Recorded In the past 12 months has [employer], [email or web address], oil, or water [employer] threatened to shut off services in your [...] GED or equivalent No 02/03/2025 Preferred Language Kazakh 02/03/2025 Sex and Gender Information Value Date Recorded Sex Assigned at Not on file Legal Sex Male 9:33 AM EDT Gender Identity Not on file Sexual Orientation Not on file documented as of this encounter Miscellaneous Notes * Telephone Encounter - Héctor Mann RN - 02/08/2025 10:25 AM EDT Spoke to patient spouse and addressed restrictions. * Telephone Encounter - Vidhya Lyn RegSched Rep - 02/08/2025 9:21 AM EDT Hub staff attempted to follow warm transfer process and was unsuccessful Caller: TATI ROACH Relationship to patient: SPOUSE Best call back number: [phone] Patient is needing: RESTRICTIONS AFTER SURGERY. documented in this encounter Plan of Treatment Upcoming Encounters Date Type Department Care Team (Late st Contact Info) Description 03/10/2025 1:30 PM EDT Appointment [facility] DIABETES ED [address] [facility] [address] [place] [phone] 05/06/2025 1:30 PM EST Office Visit [facility] NEUROLOGY [address] [facility] [address] [place] [address] Fanny Sadler APRN [address] [facility] [address] [address] 05/09/2025 11:30 AM EST Office Visit [facility] [address] [place] [address] Jeffery Phillips PA-C [address] [facility] [address] [place] [address] documented as of this encounter Visit Diagnoses Not on filedocumented in this encounter Care Teams Sheet Turner Relationship Specialty Start Date End Date Guera Bermeo APRN [address] [facility] [address] [place] [address] PCP - General Internal Medicine 02/03/25 documented as of this encounter
--- OUTSIDE RECORDS SUMMARY | 2025-02-16 10:36 | XMS_ITS | Encounter Summary ---
Author Organization [facility] Address [address] [place] [address] Care Team Providers Care Import Export Clerk Name Role Phone Guera Bermeo LEÓN Primary Care Provider [phone] Encounter Details Date Type Department Care Team (Late st Contact Info) Description 02/14/2025 Results Follow-Up [facility] Medicine Specialties [address] [facility], [address]nd [place] [address] Jina Gonzalez MD [address] [facility] [address] [place] [address] Social History Tobacco Use Types Packs/Day Years [...] on file documented as of this encounter Plan of Treatment Upcoming Encounters Date Type Department Care Team (Late st Contact Info) Description 04/13/2025 9:10 AM EST Office Visit [facility] Medicine Specialties [address] [facility]nd [place] [address] Krupa Bates MD [address] [place] [address] documented as of this encounter Visit Diagnoses Not on filedocumented in this encounter Additional Health Concerns Assessment Noted Time PHQ-9 Depression Total Score: 0 02/10/20 9:03 AM EDT A fall risk assessment has been complete d for the patient 02/09/2025 9:03 AM EDT A Body Mass Index follow-up plan has been documented for the patient 02/09/2025 10:37 AM EDT documented as of this encounter Care Teams Import Export Clerk Relationship Specialty Start Date End Date Guera Bermeo APRN [facility] [place] [address] PCP - General 02/09/25 documented as of this encounter
--- OUTSIDE RECORDS SUMMARY | 2025-02-16 10:36 | XMS_ITS | Encounter Summary ---
Author Organization [facility] Address [address] [place] [address] Care Team Providers Care Mortgage Protection Sales Name Role Phone Jean-Claude Guerahieu Palmer APRN Primary Care Provider [phone]- [phone] Encounter Details Date Type Department Care Team (Latest Contact Info) Description 02/09/2025 Travel Social History Tobacco Use Types Packs/Day [...] Stu Levi documented as of this encounter Plan of Treatment Upcoming Encounters Date Type Department Care Team (Late st Contact Info) Description 04/13/2025 9:10 AM EST Office Visit [facility] Medicine Specialties [address] [place] [address] Krupa Bates MD [address] [place] [address] documented as of this encounter Visit [...] documented as of this encounter Care Teams Mortgage Protection Sales Relationship Specialty Start Date End Date uGera Bermeo APRN [address] [place] [address] PCP - General 02/09/25 documented as of this encounter
--- OUTSIDE RECORDS SUMMARY | 2025-04-13 20:00 | XMS_ITS | Clinical Summary ---
Author Organization Unknown Care Team Providers Care Econometrics Professor Name Role Phone [employer] CHECKER, JANET Unavailable Unavailable MARGE RN, TAHMINA Unavailable Unavailable MIHIR PT, MARC Unavailable Unavailable TEDDY OT, CLAIR Unavailable Unavailable SERINA COAL MILL OPERATOR, SADIE Unavailable Unavailable Payers Payer Name Policy Type Policy Number Effective Date Expira tion Date MEDICARE.[facility] [id number] Problems Condition Name Condition Details Condition Category Status Onset Date Resolution Date Last Treatment Date Treating Clinician Comments OCCLUSION AND STENOSIS OF LEFT CAROTID ARTERY Active 02-07 00:00: 00 APHASIA FOLLOWING CEREBRAL INFARCTION Active 02-03 00:00: 00 CEREB INFRC D/T 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 Active 02-04 00:00: 00 Allergies, Adverse Reactions, Alerts Allergy Name Allergy Type Status Severity Reaction(s) Onset Date Inactive Date Treating Clinician Comments NO KNOWN ALLERGIES Propensity to adverse reactions Active 02-14 10:04: 17 Vital Signs Vital Name Observation Time Observation Value Commen ts Temperature 2025-02-14 10:14:00.000 98.7 [degF] BMI (%) 2025-02-14 10:01:21.000 21 kg/m2 Height 2025-02-14 10:01:13.000 69 [in_us] Pulse 2025-02-14 10:14:00.000 65 /min Respirations 2025-02-14 10:14:00.000 18 /min Weight (lbs) 2025-02-14 10:01:21.000 145 [lb_av] Systolic Blood Pressure 2025-02-14 10:14:00.000 127 mm [Hg] Diastolic Blood Pressure 2025-02-14 10:14:00.000 60 mm [Hg] Plan of Treatment Planned Activity Planned Date Details Comments Future Scheduled Test RN TO OBSE RVE, ASSESS, EVALUATE, AND DEVELOP AN INDIVIDUALIZED PLAN OF CARE. AGENCY MAY ACCEPT ORDERS FROM CONSULTING PHYSICIANS RN TO OBSERVE AND ASSESS, ASSOCIATE PROFESSOR OF FORESTRY/MACHINE CUTTER TO OBSERVE FOR RISK FOR FALLS AND INSTRUCT IN FALL PREVENTION, HOME SAFETY, MEDICATION MANAGEMENT, INFECTION PREVENTION, AND NUTRITION MANAGEMENT. RN/ASSOCIATE PROFESSOR OF FORESTRY/MACHINE CUTTER NURSE MAY PERFORM O2 SATURATION LEVEL ON ADMISSION AND PRN FOR RN TO ASSESS/ASSOCIATE PROFESSOR OF FORESTRY TO OBSERVE PATIENT, WITH NOTIFICATION TO THE PHYSICIAN IF SATURATION IS 90% IN THE ABSENCE OF MORE SPECIFIC PARAMETERS FROM THE PHYSICIAN. AGENCY MAY PERFORM A RESUMPTION OF CARE VISIT FOLLOWING ANY HOSPITAL ADMISSION. RN/ASSOCIATE PROFESSOR OF FORESTRY/MACHINE CUTTER TO MONITOR CO-MORBID CONDITIONS LISTED ON THE PLAN OF CARE AND ANY NEW CONDITIONS THAT PRESENT THEMSELVES DURING THIS EPISODE TO IDENTIFY CHANGES AND INTERVENE TO MINIMIZE COMPLICATIONS. [code = RN TO OBSERVE, ASSESS, EVALUATE, AND DEVELOP AN INDIVIDUALIZED PLAN OF CARE. AGENCY MAY ACCEPT ORDERS FROM CONSULTING PHYSICIANS RN TO OBSERVE AND ASSESS, ASSOCIATE PROFESSOR OF FORESTRY/MACHINE CUTTER TO OBSERVE FOR RISK FOR FALLS AND INSTRUCT IN FALL PREVENTION, HOME SAFETY, MEDICATION MANAGEMENT, INFECTION PREVENTION, AND NUTRITION MANAGEMENT. RN/ASSOCIATE PROFESSOR OF FORESTRY/MACHINE CUTTER NURSE MAY PERFORM O2 SATURATION LEVEL ON ADMISSION AND PRN FOR RN TO ASSESS/ASSOCIATE PROFESSOR OF FORESTRY TO OBSERVE PATIENT, WITH NOTIFICATION TO THE PHYSICIAN IF SATURATION IS 90% IN THE ABSENCE OF MORE SPECIFIC PARAMETERS FROM THE PHYSICIAN. AGENCY MAY PERFORM A RESUMPTION OF CARE VISIT FOLLOWING ANY HOSPITAL ADMISSION. RN/ASSOCIATE PROFESSOR OF FORESTRY/MACHINE CUTTER TO MONITOR CO-MORBID CONDITIONS LISTED ON THE PLAN OF CARE AND ANY NEW CONDITIONS THAT PRESENT THEMSELVES DURING THIS EPISODE TO IDENTIFY CHANGES AND INTERVENE TO MINIMIZE COMPLICATIONS.] Future Scheduled Test RISK FOR H OSPITALIZATION; RN TO ASSESS/TEACH, MACHINE CUTTER/ASSOCIATE PROFESSOR OF FORESTRY TO OBSERVE/TEACH PATIENT/CAREGIVER ON RISK FOR HOSPITALIZATION/EMERGENCY ROOM VISITS, TEACH SIGNS AND SYMPTOMS THAT PUT PATIENT AT RISK, WHEN TO NOTIFY NURSE/PHYSICIAN OF COMPLICATIONS/DECLINE, AND WHEN TO CALL 911. [code = RISK FOR HOSPITALIZATION; RN TO ASSESS/TEACH, MACHINE CUTTER/ASSOCIATE PROFESSOR OF FORESTRY TO OBSERVE/TEACH PATIENT/CAREGIVER ON RISK FOR HOSPITALIZATION/EMERGENCY ROOM VISITS, TEACH SIGNS AND SYMPTOMS THAT PUT PATIENT AT RISK, WHEN TO NOTIFY NURSE/PHYSICIAN OF COMPLICATIONS/DECLINE, AND WHEN TO CALL 911.] Future Scheduled Test NEUROLOGIC AL SYSTEM MANAGEMENT; RN TO ASSESS AND TEACH, MACHINE CUTTER/ASSOCIATE PROFESSOR OF FORESTRY TO OBSERVE AND TEACH RELATED TO ALTERED NEUROLOGICAL STATUS TO MINIMIZE COMPLICATIONS AND REDUCE HOSPITALIZATION. [code = NEUROLOGICAL SYSTEM MANAGEMENT; RN TO ASSESS AND TEACH, MACHINE CUTTER/ASSOCIATE PROFESSOR OF FORESTRY TO OBSERVE AND TEACH RELATED TO ALTERED NEUROLOGICAL STATUS TO MINIMIZE COMPLICATIONS AND REDUCE HOSPITALIZATION.] Future Scheduled Test CEREBRAL V ASCULAR ACCIDENT MANAGEMENT; RN/MACHINE CUTTER/ASSOCIATE PROFESSOR OF FORESTRY TO PROVIDE SKILLED TEACHING AND MANAGEMENT OF POST CEREBRAL VASCULAR ACCIDENT. [code = CEREBRAL VASCULAR ACCIDENT MANAGEMENT; RN/MACHINE CUTTER/ASSOCIATE PROFESSOR OF FORESTRY TO PROVIDE SKILLED TEACHING AND MANAGEMENT OF POST CEREBRAL VASCULAR ACCIDENT.] Future Scheduled Test DIABETES M ANAGEMENT; RN TO ASSESS AND TEACH, MACHINE CUTTER/ASSOCIATE PROFESSOR OF FORESTRY TO OBSERVE AND TEACH INSTRUCTIONS OF DIABETIC CARE TO INCLUDE: DIET DIABETIC CARDIAC SKIN CARE, SIGNS AND SYMPTOMS OF HYPO/HYPERGLYCEMIA, PROPER ADMINISTRATION OF DIABETIC MEDICATION. RN/MACHINE CUTTER/ASSOCIATE PROFESSOR OF FORESTRY TO INSTRUCT ON DIABETIC FOOT CARE AND MONITOR FOR SKIN LESIONS ON LOWER EXTREMITIES. BLOOD GLUCOSE TESTING DAILY FREQ. RN TO ASSESS AND TEACH, MACHINE CUTTER/ASSOCIATE PROFESSOR OF FORESTRY TO OBSERVE AND TEACH PATIENT/CAREGIVER ABILITY TO PERFORM AND RECORD BLOOD GLUCOSE TESTING ORDERED AND TO REPORT ABNORMAL FINDINGS TO PHYSICIAN. RN/MACHINE CUTTER/ASSOCIATE PROFESSOR OF FORESTRY MAY PERFORM BLOOD GLUCOSE TEST NEEDED. RN/MACHINE CUTTER/ASSOCIATE PROFESSOR OF FORESTRY TO REPORT TO PHYSICIAN BLOOD GLUCOSE READINGS GREATER THAN 250 OR LESS THAN 80 RN/MACHINE CUTTER/ASSOCIATE PROFESSOR OF FORESTRY TO INSTRUCT PATIENT ON IMPORTANCE OF HGBA1C MONITORING, KIDNEY FUNCTION TEST, EYE AND FOOT EXAMS. [code = DIABETES MANAGEMENT; RN TO ASSESS AND TEACH, MACHINE CUTTER/ASSOCIATE PROFESSOR OF FORESTRY TO OBSERVE AND TEACH INSTRUCTIONS OF DIABETIC CARE TO INCLUDE: DIET DIABETIC CARDIAC SKIN CARE, SIGNS AND SYMPTOMS OF HYPO/HYPERGLYCEMIA, PROPER ADMINISTRATION OF DIABETIC MEDICATION. RN/MACHINE CUTTER/ASSOCIATE PROFESSOR OF FORESTRY TO INSTRUCT ON DIABETIC FOOT CARE AND MONITOR FOR SKIN LESIONS ON LOWER EXTREMITIES. BLOOD GLUCOSE TESTING DAILY FREQ. RN TO ASSESS AND TEACH, MACHINE CUTTER/ASSOCIATE PROFESSOR OF FORESTRY TO OBSERVE AND TEACH PATIENT/CAREGIVER ABILITY TO PERFORM AND RECORD BLOOD GLUCOSE TESTING ORDERED AND TO REPORT ABNORMAL FINDINGS TO PHYSICIAN. RN/MACHINE CUTTER/ASSOCIATE PROFESSOR OF FORESTRY MAY PERFORM BLOOD GLUCOSE TEST NEEDED. RN/MACHINE CUTTER/ASSOCIATE PROFESSOR OF FORESTRY TO REPORT TO PHYSICIAN BLOOD GLUCOSE READINGS GREATER THAN 250 OR LESS THAN 80 RN/MACHINE CUTTER/ASSOCIATE PROFESSOR OF FORESTRY TO INSTRUCT PATIENT ON IMPORTANCE OF HGBA1C MONITORING, KIDNEY FUNCTION TEST, EYE AND FOOT EXAMS.] Future Scheduled Test FALL REDUC TION MANAGEMENT; RN TO ASSESS AND OBSERVE, ASSOCIATE PROFESSOR OF FORESTRY/MACHINE CUTTER TO OBSERVE FALL RISK FACTORS AND EDUCATE PATIENT/CAREGIVER ON STRATEGIES TO MINIMIZE THE RISK OF FALLING. [code = FALL REDUCTION MANAGEMENT; RN TO ASSESS AND OBSERVE, ASSOCIATE PROFESSOR OF FORESTRY/MACHINE CUTTER TO OBSERVE FALL RISK FACTORS AND EDUCATE PATIENT/CAREGIVER ON STRATEGIES TO MINIMIZE THE RISK OF FALLING.] Future Scheduled Test PHYSICAL T HERAPIST TO EVALUATE FOR BLAN E AND STRENGTH [code = PHYSICAL THERAPIST TO EVALUATE FOR BLAN E AND STRENGTH] Future Scheduled Test OCCUPATION AL THERAPIST TO EVALUATE FOR SAFETY IN ADL IADLS [code = OCCUPATIONAL THERAPIST TO EVALUATE FOR SAFETY IN ADL IADLS] Future Scheduled Test SPEECH THE RAPIST TO EVALUATE FOR SWALLOWING AND SPEECH DEFICITS [code = SPEECH THERAPIST TO EVALUATE FOR SWALLOWING AND SPEECH DEFICITS] Future Scheduled Test MEDICAL SO CIAL SERVICES FOR EVALUATION TO ASSESS SOCIAL AND EMOTIONAL FACTORS RELATED TO THE PATIENT'S ILLNESS, NEED FOR CARE, RESPONSE TO TREATMENT AND ADJUSTMENT TO CARE. [code = MEDICAL SYSTEMS APPLICATIONS PROGRAMMING LEAD FOR EVALUATION TO ASSESS SOCIAL AND EMOTIONAL FACTORS RELATED TO THE PATIENT'S ILLNESS, NEED FOR CARE, RESPONSE TO TREATMENT AND ADJUSTMENT TO CARE.] Goal Patient Goal - TO GET STRONG ER Goal Provider Goal - A PLAN OF CARE WILL BE ESTABLISHED THAT MEETS THE PATIENT S NEEDS. PATIENT WILL DEMONSTRATE OXYGEN SATURATION WITHIN NORMAL LIMITS OR PATIENT S OPTIMAL LEVEL ESTABLISHED BY THE PHYSICIAN THROUGHOUT CARE. CHANGES TO CO-MORBID CONDITIONS AND ANY NEW CONDITIONS WILL BE IDENTIFIED AND REPORTED TO THE PHYSICIAN. Goal Provider Goal - PATIENT/CAREGIVER WILL VERBALIZE UNDERSTANDING OF SIGNS AND SYMPTOMS THAT PUT THE PATIENT AT RISK FOR HOSPITALIZATION /EMERGENCY ROOM VISITS, WHEN TO NOTIFY NURSE/PHYSICIAN OF COMPLICATIONS/DECLINE AND WHEN TO CALL 911. Goal Provider Goal - PATIENT / CAREGIVER WILL VERBALIZE/DEMONSTRATE UNDERSTANDING OF MEASURES TO MANAGE ALTERED NEUROLOGICAL STATUS BY 60 DAYS Goal Provider Goal - PATIENT / CAREGIVER WILL VERBALIZE/DEMONSTRATE CARE AND SELF-MANAGEMENT OF CVA TO MINIMIZE COMPLICATIONS AND AVOID HOSPITALIZATION BY END OF EPISODE. Goal Provider Goal - PATIENT / CAREGIVER WILL VERBALIZE / DEMONSTRATE AN ABILITY TO ADHERE TO SELF-MANAGEMENT OF DIABETES MANAGEMENT BY 60 DAYS Goal Provider Goal - PATIENT/CAREGIVER WILL VERBALIZE/DEMONSTRATE UNDERSTANDING OF FALL RISK FACTORS AND IMPLEMENT STRATEGIES TO MINIMIZE FALL RISK. PATIENT/CAREGIVER WILL VERBALIZE/DEMONSTRATE AN ABILITY TO ADHERE TO FALL REDUCTION SELF-MANAGEMENT AND LIFE-STYLE CHANGES BY 60 DAYS Goal Provider Goal - Goal Provider Goal - Goal Provider Goal - Goal Provider Goal - Progress Notes Progress Notes <paragraph>[Visit Date: 2024 by TAHMINA BIRD RN]:</paragraph><paragraph>PATIENT DX WITH RA AND UNABLE TO PAY FOR 250 COPAY , SEED TECHNICIAN CONSULT, OLD CANCER LESION TO SCALP , WEEPS OCCASSIONALLY , COVERED WITH DSD, </paragraph><paragraph>USES ROLLATOR WALKER, SOME SWALLOWING ISSUES , LIVES WITH WHO IS FINISHING MACHINE OPERATOR, </paragraph><paragraph></paragraph><paragraph>75 YEAR OLD MALE DC FROM [facility] POST CVAAND LEFT CAROTID STENT PLACEMENT FOR STENOSIS LIVES IN SINGLE STORY HOME WITH SPOUSE AND A FRIENDLY CAT, USING ROLLATOR FOR AMBULATION, SWALLOWING AND SPEECH ARE HIS MAIN DEFICITS AT THIS TIME, GENERALIZED WEAKNESS , ADMITTED FOR SN, PT, OT ,ST ALSO DIABETIC , HAVING ISSUES CHECKING GLUCOSE WITH METER, ASKING PCP FOR SENSOR FOR ARM IF APPROVED BY INSURANCE</paragraph> Encounters Start Date/Time End Date/Time Encounter Type Admission Type Attending Clinicians Care Facility Care Department Encounter ID Discharge Date Discharge Status Discharge Condition Discharge Reason Percent Goals Met 2025-02-14 00:00:00 2025-04-14 00:00:00 Outpatient NEW ADMISSION TAHMINA BIRD [facility] [id number] [id number]
== END 2025-02-15 23:59 | disposition home or self-care (01) ==
LOC: LAB.DROPOF 02-16 10:29
PROVIDERS: PCP Nurse Practitioner Family; Visit Provider Nurse Practitioner Family
DX: J02.9 Acute pharyngitis, unspecified (principal)
CPT/HCPCS: 87070

== ENCOUNTER 2025-03-30 14:32 | Outpatient (RCR) | payer MEDICARE, SELFPAY ==
--- NOTE | 2025-03-30 15:57 | HMH.PTOPWND ---
Rehab Wound Evaluation Rehab OP Wound Evaluation Start: 03/30/25 15:41 Freq: Status: Active Protocol: Document 03/30/25 15:45 AIDAN (Rec: 03/30/25 15:57 PHORTOBI [id number]) E-signed By Weston Whalen, PT Subjective/History History History This is the initial PT eval for Derrick Roach, 75 yowm who presents with c/o non-healing scalp wound. He reports he had skin cancer removed from this area ~ 5 yrs ago without complications and has only had problems over the past 2 mos after recent CVA x 2. He reports irritation of his scalp due to moving my head on the pillow when I lay in bed. Wound bed appears healthy at this time without necrotic tissue and minimal sanguineous drainage noted. He reports minimal discomfort with wound cleansing. He has PMH of DM, CAD, CVA x 2 Subjective Subjective Pt reports no c/o pain at this time, but 1/4 TTP to katie-wound skin. No necrotic tissue noted currently. Wound appears possibly hypergranulated, but true underlying cause of issues is difficult to discern secondary to prior history of skin cancer of an apparent large area of his scalp. Pt is currently receiving home health services. Wound Eval Wound Head Wound Type unknown etiology Is This a Chronic Yes Wound Wound Length (cm) 8.0 Wound Width (cm) 6.0 Wound Depth (cm) 0.1 Wound Bed Appearance Beefy Red Percentage 100 Granulated (%) Wound Margins Well Defined Description Surrounding Tissue Bright Red Appearance Drainage Description Sanguineous Drainage Amount Small Primary Dressing collagen Comment puracol Wound Secondary Composite Dressing Type Wound Debridement Gauze,Mechanical Method Wound Debridement None Amount of Tissue Removed Dressing Change Tolerated Well Patient Tolerance Baez-Camp Wound Assessment Tool Assessment Wound size 4=Length x Width 36.1--<80 sq cm Wound depth 3=Full thickness skin loss involving damage or necrosis of Wound edges 2=Distinct, outline clearly visible, attached, even with wound base Wound undermining 1=None present Necrotic tissue type 1=Non visible Necrotic tissue 1=None visible amount Exudate type 2=Bloody Exudate amount 3=Small Skin color 2=Bright red &/or blanches to touch surrounding wound Peripheral tissue 1=No swelling or edema edema Peripheral tissue 1=None present induration Granulation tissue 2=Bright, beefy red;75% to 100% of wound filled &/or tissue overgrowth Epithelialization 5= < 25% wound covered Wound assessment 28 total score Wound Problems/Impairments Impairments Problems/ Palpation Tenderness,Impaired Strength,Impaired Impairmments Endurance,Impaired Transfers,Impaired Walking,Impaired Standing,Impaired Driving,Impaired Lifting,Impaired Dressing,Impaired Shower/Bathing,Impaired Household Care,Impaired Stair Climbing,Impaired Incline Stepping, Impaired Stepping on Uneven Surface,Impaired Recreational Activities,Wound Care Needs,Impaired Self Care/Self Management Prognosis Rehab Potential Good Comment Currently no sharp excisional debridement is necessary and pt does not need the services of outpatient physical therapy wound care. Recommend referral to dermatology or oncology for further work-up. 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 Patient/Guardian Yes verbally acknowledges understanding of treatment program and consents to further treatment? Patient/Guardian Yes verbally acknowledges understanding of diagnosis, prognosis and goals for treatment? Eval Complexity PT Charges [id number] - High Complexity PHYSICIAN CERTIFICATION: I certify the specified therapy services for Derrick Roach are required, authorized, and reviewed every 30 days.
== END 2025-03-30 23:59 | disposition home or self-care (01) ==
LOC: PT 14:32
PROVIDERS: PCP Nurse Practitioner Family; Visit Provider Nurse Practitioner Family
DX: L98.8 Other specified disorders of the skin and subcutaneous tissue (principal); Z86.73 Personal history of transient ischemic attack (TIA), and cerebral infarction without residual deficits
CPT/HCPCS: 97163

== ENCOUNTER 2025-05-10 10:21 | Emergency (ER) | payer MEDICARE, SELFPAY ==
--- OUTSIDE RECORDS SUMMARY | 2025-03-07 13:30 | XMS_ITS | Encounter Summary ---
Author Organization [facility] Address [address] [place] [address] Care Team Providers Care Reporting Process Consultant Name Role Phone Karli Bermeonihieu Palmer APRN Primary Care Provider [phone]- [phone] Reason for Referral * Consultation (Routine) - Authorized Specialty Diagnoses / Procedures Referred By Contac t Referred To Contact Pharmacy Diagnoses Cerebrovascular accident (CVA), unspecified mechanism (CMS/HCC) Moises Haile, PharmD [address] [address] Phone: tel: fax: Referral ID Status Reason Start Date Expiration Date Visits Requested Visits Authorized [id number] Authorized Continuity of Care 03/07/2025 09/06/2026 1 1 Encounter Details Date Type Department Care Team (Latest Contact Info) Description 03/07/2025 2:30 PM EDT [facility] [address] [facility], [address]nd [place] [address] Lucy Mcintosh PharmD None None Cerebrovascular accident (CVA), unspecified mechanism (CMS/HCC) (Primary Dx) Social History Tobacco Use Types Packs/Day Years [...] as of this encounter Miscellaneous Notes * Clinician Note - Lucy Mcintosh, PharmD - 03/07/2025 2:30 PM EDT [facility] Pharmacy New Patient Telehealth Referral Telehealth Statement Patient Verification--Spoke with spouse, Abida Roach on behalf of patient Patient identity has been confirmed using name and date of ? Yes Authorizations and Agreements/Telemedicine Consent sent and consent confirmed? Yes Spouse Location: [employer] Patient confirms they are physically located in [place]? Yes If the patient is not physically located in [place], the provider has confirmed with [facility] thatthe provider is authorized to provide services in patient's stated location? N/A Provider Location: Provider's Home Audio and video or audio only? Audio only Total visit time: 15 minutes Derrick Roach is a 75 y.o. male patient referred by provider Aly Lemons with [facility] to establish pharmacy care. Patient pharmacy insurance (if known): Medicare New non-specialty medication to be initiated: Discharge medications from [facility] Indication: CVA Patient reports they have trialed and failed the following therapies for the above indication: none Patient reports they prefer to obtain their medication via pickup for this non- specialty medicationat [facility]. Reviewed scope of [facility] Pharmacy Services, including benefits investigation, prior authorization support, and options for pickup and mail order dispensing. If medication is a Specialty medication, reviewed patient management program and that a pharmacist would be in contact for additional discussion. Obtained and reviewed updated medication list and allergies with patient and documented in Epic. Allergies Patient has no known allergies. *Poor historian* *Medications provided by [facility] Pharmacist* *Conflicting Mycophenolate dose. Patient following up with PCP* Current Outpatient Medications Medication Instructions aspirin 81 mg, Daily atorvastatin (LIPITOR) 80 mg, Daily Breo Ellipta 100-25 MCG/ACT aerosol powder 1 puff, Inhalation, As needed, As needed escitalopram (LEXAPRO) 10 mg, Daily finasteride (PROSCAR) 5 mg, Every evening fludrocortisone (FLORINEF) 0.1 mg/day, Daily furosemide (LASIX) 20 mg, Daily metFORMIN (GLUCOPHAGE) 1,000 mg, 2 times daily with meals mycophenolate (CELLCEPT) 1,000 mg, Oral, 2 times daily pantoprazole (PROTONIX) 20 mg, Daily potassium chloride CR (K-Tab) 20 MEQ ER tablet 20 mEq, Daily ticagrelor (BRILINTA) 90 mg, 2 times daily Provided patient information to access pharmacy website for individual pharmacy information and informed them they may expect a call with additional pharmacy information in the next 3 business days regarding status of prescription. * Addendum Note - Lucy Mcintosh PharmD - 03/07/2025 2:30 PM EDTAddended by: LUCY MCINTOSH on: 03/29/2025 01:33 PM Modules accepted: Orders documented in this encounter Plan of Treatment Upcoming Encounters Date Type Department Care Team (Late st Contact Info) Description 05/12/2025 2:00 PM EST Office Visit [facility] Medicine Specialties [address] [place] [address] Lucas Londono MD [address] [place] [address] 06/02/2025 1:00 PM EST Office Visit [facility] Rafael [address] [facility] [place] [address] Wander Rob MD [address] [place] [phone] Scheduled Referrals Name Type Priority Associated Diagnoses Orde r Schedule Ambulatory Referral for External Medication Management Review Outpatient Referral Routine Cerebrovascular accident (CVA), unspecified mechanism (CMS/HCC) Expected: 03/07/2025 (Approximate), Expires: 09/08/2026 documented as of this encounter Visit Diagnoses Diagnosis Cerebrovascular accident (CVA), unspecified mechanism (CMS/HCC)- Primary documented in this encounter Additional Health Concerns Assessment Noted Time PHQ-9 Depression Total Score: 0 02/10/20 9:03 AM EDT A fall risk assessment has been complete d for the patient 02/09/2025 9:03 AM EDT A Body Mass Index follow-up plan has been documented for the patient 02/09/2025 10:37 AM EDT documented as of this encounter Care Teams Reporting Process Consultant Relationship Specialty Start Date End Date Guera Bermeo APRN [address] [place] [address] PCP - General 02/09/25 documented as of this encounter
--- OUTSIDE RECORDS SUMMARY | 2025-03-10 12:26 | XMS_ITS | Encounter Summary ---
[facility] Address [address] [place] [address] Care Team Providers Care Machine Gun Mechanic Name Role Phone Guera Bermeo APRN Primary Care Provider [phone] Encounter Details Date Type Department Care Team (Latest Contact Info) Description 03/10/2025 1:26 PM EDT - 03/10/2025 11:59 PM EDT Hospital Encounter [facility] DIABETES ED [address] [facility] [address] [place] [phone] Discharge Disposition: Home or Self Care Social History Tobacco Use Types Packs/Day Years Used Date Smoking Tobacco: Never Smokeless Tobacco: Current Chew Alcohol Use Standard Drinks/Week Comments Never 0 (1 standard drink = 0.6 oz pur e alcohol) [facility] Utilities Answer Date Recorded In the past 12 months has [employer], gas, oil, or water company threatened to shut off services in your home? No 02/03/2025 AUDIT-C Answer Date Recorded Q1: How often do you have a drink containing alcohol? Never 02/16/2025 Q2: How many drinks containi ng alcohol do you have on a typical day when you are drinking? Patient does not drink Q3: How often do you have si x or more drinks on one occasion? Never 02/16/2025 Exercise Vital Sign Answer Date Recorde d [...] Feels Unsafe at Home or Work/School no 02/16/2025 Feels Threatened by Someone no 01/25 Does Anyone Try to Keep You From Having Contact with Others or Doing Things Outside Your Home? no 02/16/2025 Physical Signs of Abuse Present no 02/16/2025 Housing Stability Answer Date Recorded Current Living Arrangements home 01/25 Potentially Unsafe Housing Conditions unable to assess 02/17/2025 Family and Community Support Answer Sushant e Recorded Help with Day-to-Day Activities Not on file 09/20/2023 Lonely or Isolated Not on file 09/20/2023 Employment Answer Date Recorded Do you want help finding or keeping work or a job? I do not need or want help 02/03/2025 Disabilities Answer Date Recorded Difficulty Concentrating, Remembering or Making Decisions no 02/16/2025 Difficulty Managing Errands Independently no 02/16/2025 Education Answer Date Recorded Do you want help with school or training? For example, starting or completing job training or getting a high school diploma, GED or equivalent No 02/17/2025 Preferred Language Nepalese 02/17/2025 PHQ-2 Answer Date Recorded Patient Health Questionnaire-2 Score 0 02/16/2025 Sex and Gender Information Value Date Recorded Sex Assigned at Not on file Legal Sex Male 9:33 AM EDT Gender Identity Not on file Sexual Orientation Not on file documented as of this encounter Medications at Time of Discharge ASPIRIN 81 PO Take 1 tablet by mouth Daily. atorvastatin (LIPITOR) 80 MG tablet Take 1 tablet by mouth Every Night. 90 tablet 02/05/2025 2:10 PM EDT 02/05/2025 finasteride (PROSCAR) 5 MG tablet Take 1 tablet by mouth Daily. 02/23/2025 furosemide (LASIX) 20 MG tablet Take 1 tablet by mouth Daily. 01/10/2025 isosorbide mononitrate (IMDUR) 30 MG 24 hr tablet Take 0.5 tablets by mouth Daily. metFORMIN (GLUCOPHAGE) 1000 MG tablet Take 1 tablet by mouth 2 (Two) Times a Day With Meals. midodrine (PROAMATINE) 10 MG tablet Take 1 tablet by mouth 3 (Three) Times a Day Before Meals. 02/22/2025 mycophenolate (CELLCEPT) 250 MG capsule Take 2 capsules by mouth 2 (Two) Times a Day. potassium chloride ER (K-TAB) 20 MEQ tablet controlled-releas e ER tablet Take 1 tablet by mouth Daily. 12/27/2024 ticagrelor (BRILINTA) 90 MG tablet tablet Take 1 tablet by mouth 2 (Two) Times a Day. 02/22/2025 documented as of this encounter Consult Notes * Emma Calvillo RN - 03/10/2025 1:30 PM EDT Mr. Roach and his attended follow-up outpatient diabetes management education class via phone call-30 minute class. Educated on basic diabetes pathophysiology and how related to increased riskfor complications, specifically stroke. Discussed s/sx of hyperglycemia and hypoglycemia and self management of both. Education provided on the plate method, as well as exercise recommendations. Stressed importance of ongoing, lifelong follow up with PCP for diabetes and other chronic health condition management. Stressed importance of taking all medications as prescribed. His states that they took him off his Metformin in the hospital and never restarted it. She stated that they got home from [facility] on Friday, and his blood sugar was 168 yesterday. She stated she went ahead and gave the metformin, but she asked if that is what she should have done. Encouraged her to continue to check his blood sugar at home. Reviewed recommended ranges for blood sugar of 80-130 before meals and 80-180 2 hours after meals. She stated they had a follow up scheduled for Friday. Encouraged herto call provider if blood sugar goes high and stays high, but also encouraged her to ask provider for specific instructions regarding diabetes medication on Friday, as he has not been prescribed any since the hospitalization. She states he was taking Metformin 1000 mg BID before. Patient was given opportunity to ask questions, and was also encouraged to pursue further diabetes education class with both RN and RD. Class educational materials were mailed to patient's home: [facility]'s Diabetes Basics booklet, as well as our contact information for any further questions or need . Thank you. documented in this encounter Plan of Treatment Upcoming Encounters Date Type Department Care Team (Late st Contact Info) Description 06/09/2025 1:30 PM EST Office Visit [facility] NEUROLOGY [address] [facility] [address] [place] [address] Fanny Sadler APRN [address] [facility] [address] [address] 03/16/2026 11:00 AM EDT Appointment [facility]IVE LAB OUTPATIENT CENTER [address] [facility] [address] [place] [address] 03/16/2026 1:00 PM EDT Office Visit [facility] NEUROSURGERY [address] [facility] [address] [place] [address] Jeffery Phillips PA-C [address] [facility] [address] [place] [address] documented as of this encounter Visit Diagnoses Not on filedocumented in this encounter Care Teams Machine Gun Mechanic Relationship Specialty Start Date End Date Guera Bermeo APRN [facility] [address] [place] [address] PCP - General Internal Medicine 02/03/25 documented as of this encounter
--- OUTSIDE RECORDS SUMMARY | 2025-03-17 12:30 | XMS_ITS | Encounter Summary ---
Author Organization [facility] Address [address] [place] [address] Care Team Providers Care Cryptologic Linguist Name Role Phone Guera Bermeo APRN Primary Care Provider [phone] Reason for Visit * Reason Comments Hospital Follow Up Visit SOA when walkin g Encounter Details Date Type Department Care Team (Late st Contact Info) Description 03/17/2025 1:30 PM EDT Office Visit [facility] [address] [place] [address] Fanny Sadler APRN [address] [place] [address] Cerebrovascular accident (CVA) due to bilateral stenosis of middle cerebral arteries (Primary Dx); Hypertension, unspecified type; Hypercholesteremia; Type 2 diabetes mellitus with hyperglycemia, without long-term current use of insulin Social History Tobacco Use Types Packs/Day Years Used Date Smoking Tobacco: Never Smokeless Tobacco: Current Chew Alcohol Use Standard Drinks/Week Comments Never 0 (1 standard drink = 0.6 oz pur e alcohol) [facility] Utilities Answer Date Recorded In the past 12 months has [employer], gas, oil, or water [employer] threatened to shut off services in your [...] GED or equivalent No 02/17/2025 Preferred Language Luxembourger 02/17/2025 PHQ-2 Answer Date Recorded Patient Health Questionnaire-2 Score 0 02/16/2025 Sex and Gender Information Value Date Recorded Sex Assigned at Not on file Legal Sex Male 9:33 AM EDT Gender Identity Not on file Sexual Orientation Not on file documented as of this encounter Last Filed Vital Signs Vital Sign Reading Time Taken Comments Blood Pressure 112/66 03/17/2025 1:16 PM EDT Pulse 65 03/17/2025 1:16 PM EDT Temperature - - Respiratory Rate - - Oxygen Saturation 98% 03/17/2025 1:16 PM EDT Inhaled Oxygen Concentration - - Weight 65.8 kg (145 lb) 03/17/2025 1:16 PM EDT Height 157 cm (5' 1.81 ) 03/17/2025 1:16 PM EDT Body Mass Index 26.68 03/17/2025 1:16 PM EDT documented in this encounter Progress Notes * Fanny Sadler APRN - 03/17/2025 1:30 PM EDT New Patient Office Visit Encounter Date: 03/17/2025 Patient Name: Derrick Roach : 1950 PCP: Guera Bermeo APRN Referring Provider: No ref. provider found Chief Complaint: History of recurrent stroke History of Present Illness: Derrick Roach is a 75 y.o. male who is here today to establish care. known medical diagnoses of essential hypertension, hyperlipidemia, diabetes mellitus type 2, CAD, history of right hemispheric stroke (data deficient, reported mild left sided weakness), history of TIA, and recent left hemispheric strokes s/p left ICA stent (02/04/2025). He again presented to [facility] for further evaluation of transient strokelike symptoms on 02/16/2025. Per report upon arrival to the emergency department patient's symptoms had resolved and his NIHSS was 0. He reported compliance with his aspirin and Plavix therapy. He underwent a CT of the head without contrast which was negative for hemorrhage. CTA head/neck was concerning for a partial occlusive thrombuswithin his left ICA stent. He was found to be a Plavix non-responder and switched to Brilinta. Clinic visit 03/17/2025: He has been adhering to his medication regimen, which includes aspirin, Brilinta, and atorvastatin, without any complications. He reports no facial asymmetry, numbness in hisarms or legs, or changes in vision. He has not experienced any falls since his hospital discharge. He also reports no feelings of depression or difficulty in finding motivation although his has concerns for depression. He is currently taking Lexapro. He does not use tobacco products. He reports no episodes of palpitations. He is scheduled to see a physician distribution center assistant in the neurosurgery clinic next week with a carotid ultrasound to check on his stent. Stroke Risk Factors: carotid stenosis, diabetes mellitus, hyperlipidemia, and hypertension Subjective Review of Systems: Review of Systems Constitutional: Positive for activity change and fatigue. Negative for appetite change, chills, diaphoresis, fever, unexpected weight gain and unexpected weight loss. HENT: Negative for trouble swallowing. Eyes: Negative for photophobia and visual disturbance. Respiratory: Negative for cough and shortness of breath. Cardiovascular: Negative for chest pain, palpitations and leg swelling. Gastrointestinal: Negative for constipation, nausea and vomiting. Genitourinary: Negative for hematuria. Musculoskeletal: Positive for gait problem. Neurological: Positive for facial asymmetry and weakness. Negative for dizziness, tremors, seizures, syncope, speech difficulty, light-headedness, numbness, headache, memory problem and confusion. Psychiatric/Behavioral: Positive for depressed mood. Past Medical History: Past Medical History: Diagnosis Date Anemia Carotid artery stenosis Coronary artery disease Diabetes mellitus Disease of thyroid gland Hypercholesterolemia Hypertension Osteoarthritis Renal disease Rheumatoid arthritis Stroke Thyroid disease TIA (transient ischemic attack) Past Surgical History: Past Surgical History: Procedure Laterality Date CAROTID STENT N/A 02/04/2025 Procedure: Left Carotid Stent; Surgeon: Mason Desouza MD; Location: [facility]; Service: Interventional Radiology; Laterality: N/A; Family History: No family history on file. Social History: Social History Socioeconomic History Marital status: Tobacco Use Smoking status: Never Smokeless tobacco: Current Types: Chew Vaping Use Vaping status: Never Used Substance and Sexual Activity Alcohol use: Never Drug use: Never Sexual activity: Defer Medications: Current Outpatient Medications: ASPIRIN 81 PO, Take 1 tablet by mouth Daily., Disp: , Rfl: atorvastatin (LIPITOR) 80 MG tablet, Take 1 tablet by mouth Every Night., Disp: 90 tablet, Rfl: 0 finasteride (PROSCAR) 5 MG tablet, Take 1 tablet by mouth Daily., Disp: , Rfl: [Paused] metFORMIN (GLUCOPHAGE) 1000 MG tablet, Take 1 tablet by mouth 2 (Two) Times a Day With Meals., Disp: , Rfl: midodrine (PROAMATINE) 10 MG tablet, Take 1 tablet by mouth 3 (Three) Times a Day Before Meals., Disp: , Rfl: ticagrelor (BRILINTA) 90 MG tablet tablet, Take 1 tablet by mouth 2 (Two) Times a Day., Disp: , Rfl: [Paused] furosemide (LASIX) 20 MG tablet, Take 1 tablet by mouth Daily., Disp: , Rfl: [Paused] isosorbide mononitrate (IMDUR) 30 MG 24 hr tablet, Take 0.5 tablets by mouth Daily., Disp:, Rfl: mycophenolate (CELLCEPT) 250 MG capsule, Take 2 capsules by mouth 2 (Two) Times a Day., Disp: , Rfl: mycophenolate (CELLCEPT) 500 MG tablet, Take 2 tablets by mouth 2 (Two) Times a Day., Disp: , Rfl: [Paused] potassium chloride ER (K-TAB) 20 MEQ tablet controlled-release ER tablet, Take 1 tablet bymouth Daily., Disp: , Rfl: Allergies: No Known Allergies Objective Physical Exam: Vital Signs: Vitals: 03/17/25 1316 BP: 112/66 Pulse: 65 SpO2: 98% Weight: 65.8 kg (145 lb) Height: 157 cm (61.81 ) PainSc: 0-No pain Body mass index is 26.68 kg/m??. Physical Exam Vitals and nursing note reviewed. Constitutional: General: He is awake. He is not in acute distress. Appearance: Normal appearance. He is normal weight. He is not ill-appearing. HENT: Head: Normocephalic and atraumatic. Nose: Nose normal. Mouth/Throat: Mouth: Mucous membranes are moist. Eyes: General: Lids are normal. Extraocular Movements: Extraocular movements intact. Pupils: Pupils are equal, round, and reactive to light. Cardiovascular: Rate and Rhythm: Normal rate and regular rhythm. Pulses: Normal pulses. Pulmonary: Effort: Pulmonary effort is normal. No respiratory distress. Skin: General: Skin is warm and dry. Neurological: Mental Status: He is alert and oriented to person, place, and time. Cranial Nerves: Cranial nerve deficit present. Sensory: No sensory deficit. Motor: Motor strength is normal.Weakness present. Coordination: Coordination is intact. Coordination normal. Gait: Gait abnormal. Psychiatric: Mood and Affect: Mood normal. Speech: Speech normal. Behavior: Behavior normal. Neurological Exam Mental Status Awake and alert. Speech is normal. Language is fluent with no aphasia. Attention and concentration are normal. Fund of knowledge is appropriate for level of education. Cranial Nerves CN II: Right visual acuity: Counts fingers. Left visual acuity: Counts fingers. Visual phillips full to confrontation. CN III, IV, : Extraocular movements intact bilaterally. Normal lids and orbits bilaterally. Pupils equal round and reactive to light bilaterally. CN V: Facial sensation is normal. CN VII: Left: There is central facial weakness. CN VIII: Hearing is normal to speech . CN XI: Shoulder shrug strength is normal. CN XII: Tongue midline without atrophy or fasciculations. Motor Normal muscle bulk throughout. No fasciculations present. Normal muscle tone. Strength is 5/5 throughout all four extremities. No drift any extremity. Generalied weak. Sensory Light touch is normal in upper and lower extremities. Pinprick is normal in upper and lower extremities. Coordination [id number], rapid alternating movements and [id number] normal bilaterally without dysmetria. No obvious dysmetria . Gait Abnormal gait. Walking with rollator. Modified Aparna Score: 2 0 No Symptoms 1 No significant disability. Able to carry out all usual activities, despite some symptoms. 2 Slight disability. Able to look after own affairs without assistance, but unable to carry out allprevious activities. 3 Moderate disability. Requires some help, but able to walk unassisted. 4 Moderately severe disability. Unable to attend to own bodily needs without assistance, and unableto walk unassisted. 5 Severe disability. Requires constant nursing care and attention, bedridden, incontinent. 6 Imaging Reviewed: CT Angiogram Neck Result Date: 02/18/2025 Impression: 1.Stable thrombus in the left ICA portion of the stent with a short segment of near occlusion and greater than 80% stenosis through the stent. 2.No significant right carotid stenosis. 3.Mild cervical degenerative changes. Electronically Signed: Ruddy Rivera MD 02/18/2025 5:54 AM EDT Workstation ID: [id number] MRI Brain Without Contrast Result Date: 02/17/2025 Impression: 1.Multiple new small and punctate foci of acute/subacute infarction in the left MCA territory and left occipital lobe. 2.Resolving area of infarction in the lateral high left frontal lobe. 3.Stable moderate chronic small vessel ischemic change and generalized parenchymal volume loss. 4.Chronic right maxillary sinus mucosal disease. Electronically Signed: Ruddy Rivera MD 02/17/2025 4:01 AM EDT Workstation ID: [id number] CT CEREBRAL PERFUSION WITH & WITHOUT CONTRAST Result Date: 02/16/2025 Impression: Examination appears within normal limits. Electronically Signed: Lucas Banks MD 02/16/2025 3:32 PM EDT Workstation ID: [id number] XR Hips Bilateral With or Without Pelvis 2 View Result Date: 02/09/2025 1. 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 2. Normal evaluation of the bilateral hip joint. 3. Sclerosis and loss of vertebral body height at L4 suggesting compression deformity.. CRITICAL RESULT: No. COMMUNICATION: Per this written report. Drafted by Blayne Zhang MD on 02/09/2025 12:05 PM Final report signed by Blayne Zhang MD on 02/09/2025 12:08 PM XR Hand and Wrist Bilateral 2 Views Result Date: 02/09/2025 1. 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 2. Normal evaluation of the bilateral hip joint. 3. Sclerosis and loss of vertebral body height at L4 suggesting compression deformity.. CRITICAL RESULT: No. COMMUNICATION: Per this written report. Drafted by Blayne Zhang MD on 02/09/2025 12:05 PM Final report signed by Blayne Zhang MD on 02/09/2025 12:08 PM MRI Brain Without Contrast Result Date: 02/03/2025 Impression: Small areas of acute cortical infarct are present within the left frontal and temporal lobes, without evidence of associated hemorrhage or significant mass effect. Otherwise moderate typical chronic and age-related findings are present. Electronically Signed: Jona Iniguez MD 56:05 AM EDT Workstation ID: [id number] Laboratory Results: Hemoglobin Date Value Ref Range Status 02/21/2025 10.6 (L) 13.0 - 17.7 g/dL Final Hematocrit Date Value Ref Range Status 02/21/2025 33.6 (L) 37.5 - 51.0 % Final Platelets Date Value Ref Range Status 02/21/2025 152 140 - 450 10*3/mm3 Final Hemoglobin A1C Date Value Ref Range Status 02/03/2025 5.42 4.80 - 5.60 % Final LDL Cholesterol Date Value Ref Range Status 02/03/2025 52 0 - 100 mg/dL Final AST (SGOT) Date Value Ref Range Status 02/17/2025 22 1 - 40 U/L Final ALT (SGPT) Date Value Ref Range Status 02/17/2025 14 1 - 41 U/L Final Assessment / Plan Assessment/Plan: # Left ICA thrombus s/p stent 02/04 # History of stroke - MRI on 02/17/2025 with multiple punctate foci of acute infarction in the left MCA territory and left occipital lobe - Outside hospital CT angiogram on 02/16/2025 with partial occlusive thrombus within the LICA stent - Continue Brilinta 90mg BID . Patient is Plavix nonresponder with P2Y12 233 on Plavix. 02/17 P2Y12 72 indicating adequate responsiveness to Brilinta - Continue aspirin 81 mg -Continue Lipitor 80 mg nightly - Follow-up in Neurosurgery clinic with repeat CUS -Continue to work with PT/OT -Reviewed s/sxs of stroke Essential hypertension -Goal blood pressure 120-150/80-90 -Management per primary team -Avoid hypotension given LICA in-stent stenosis, continue scheduled midodrine Hyperlipidemia -LDL (02/03/2025) 52, continue Lipitor 80mg nightly Diabetes mellitus type 2 -A1c (02/03/2025) 5.42 -Maintain euglycemia -Management per primary team Discussed the importance of medication compliance and lifestyle modifications (adequate blood pressure control, adequate control of hyperlipidemia, adequate glycemic control, increase physical activity, and healthy diet) to help reduce the risk of future cerebrovascular events. Also discussed the signs symptoms that would warrant the patient return back to the emergency department including unilateral weakness, unilateral numbness, visual disturbances, loss of balance, speech difficulties, and/or a sudden severe headache. Follow Up: Return in about 2 months (around 05/17/2025). Patient or patient student services representative verbalized consent for the use of Ambient Listening during the visit with Fanny Sadler APRN for chart documentation. 03/17/2025 15:59 EDT Fanny Sadler APRN [facility] Stroke documented in this encounter Plan of Treatment Upcoming Encounters Date Type Department Care Team (Late st Contact Info) Description 06/09/2025 1:30 PM EST Office Visit [facility] [address] [place] [address] Fanny Sadler APRN [address] [facility] [address] [address] 03/16/2026 11:00 AM EDT Appointment [facility] [address] [place] [id number] 03/16/2026 1:00 PM EDT Office Visit [facility] [address] [place] [id number] Jeffery Phillips PA-C [address] [place] [address] documented as of this encounter Visit Diagnoses Diagnosis Cerebrovascular accident (CVA) due to bilateral stenosis of middle cerebral arteries- Primary Hypertension, unspecified type Hypercholesteremia Pure hypercholesterolemia Type 2 diabetes mellitus with hyperglycemia, without long-term current use of insulin documented in this encounter Care Teams Cryptologic Linguist Relationship Specialty Start Date End Date Guera Bermeo APRN [address] [place] [id number] PCP - General Internal Medicine 02/03/25 documented as of this encounter
--- OUTSIDE RECORDS SUMMARY | 2025-03-24 11:03 | XMS_ITS | Encounter Summary ---
Author Organization [facility] Address [address] [place] [address] Care Team Providers Care Road Consultant Name Role Phone Guera Bermeo APRN Primary Care Provider [phone] Reason for Referral * Diagnostic Imaging (Routine) - Closed Specialty Diagnoses / Procedures Referred By Contac t Referred To Contact Diagnoses Arterial stent thrombosis, initial encounter Acute ischemic stroke 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 Procedures Duplex Carotid - Left Ultrasound Mason Cannon MD [address] [place] [address] Phone: tel: fax: [facility] PATIENT ACCESS [address] [place] [address] Phone: tel: Referral ID Status Reason Start Date Expiration Date Visits Re quested Visits Authorized [id number] Closed 02/18/2025 05/20/2026 1 1 Reason for Visit * Diagnostic Imaging (Routine) - Closed Specialty Diagnoses / Procedures Referred By Contac t Referred To Contact Diagnoses Arterial stent thrombosis, initial encounter Acute ischemic stroke 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 Procedures Duplex Carotid - Left Ultrasound Mason Cannon MD [address] [place] [address] Phone: tel: fax: [facility] PATIENT ACCESS [address] [place] [address] Phone: tel: Referral ID Status Reason Start Date Expiration Date Visits Re quested Visits Authorized [id number] Closed 02/18/2025 05/20/2026 1 1 Encounter Details Date Type Department Care Team (Late st Contact Info) Description 03/24/2025 12:03 PM EDT - 03/24/2025 11:59 PM EDT Hospital Encounter [facility]INVASIVE LAB OUTPATIENT C[facility] [address] [facility] [address] [address] [place] [address] Mason Desouza MD [address] [facility] [address] [place] [address] Arterial stent thrombosis, initial encounter; Acute ischemic stroke; 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 Discharge Disposition: Home or Self Care Social History Tobacco Use Types Packs/Day Years Used Date Smoking Tobacco: Never Passive Smoke Exposure: Never Smokeless Tobacco: Current Chew Alcohol Use Standard Drinks/Week Comments Never 0 (1 standard drink = 0.6 oz pur e alcohol) [facility] Utilities Answer Date Recorded In the past 12 months has [employer], gas, oil, or water [employer] threatened to shut off services in your home? No 02/03/2025 Exercise Vital Sign Answer Date Recorde d [...] things needed for daily living? No 02/03/2025 AUDIT-C Answer Date Recorded Q1: How often do you have a drink containing alcohol? Never 03/24/2025 Q2: How many drinks containi ng alcohol do you have on a typical day when you are drinking? Patient does not drink Q3: How often do you have si x or more drinks on one occasion? Never 03/24/2025 Abuse Screen Answer Date Recorded Feels Unsafe [...] GED or equivalent No 02/17/2025 Preferred Language Chinese 02/17/2025 PHQ-2 Answer Date Recorded Patient Health Questionnaire-2 Score 0 02/16/2025 Sex and Gender Information Value Date Recorded Sex Assigned at Not on file Legal Sex Male 9:33 AM EDT Gender Identity Not on file Sexual Orientation Not on file documented as of this encounter Last Filed Vital Signs Vital Sign Reading Time Taken Comments Blood Pressure - - Pulse - - Temperature - - Respiratory Rate - - Oxygen Saturation - - Inhaled Oxygen Concentration - - Weight 65.8 kg (145 lb 1 oz) 03/24/2025 12:04 PM EDT Height - - Body Mass Index 26.7 03/17/2025 1:16 PM EDT documented in this encounter Functional Status * AUDIT-C Score Answer Date of Assessment Author 0 03/24/2025 1:57 PM EDT Sorg, Caleb ve * Question Answer Date of Assessment Author Q1: How often do you have a drink containing alcohol? Never 03/24/2025 1:57 PM EDT Kamar Hull Q2: How many drinks containing alcohol do you have on a typical day when you are drinking? Patient does not drink 03/24/2025 1:57 PM EDT Kamar Hull Q3: How often do you have six or more drinks on one occasion? Never 03/24/2025 1:57 PM EDT Kamar Hull documented as of this encounter Medications at Time of Discharge ASPIRIN 81 PO Take 1 tablet by mouth Daily. atorvastatin (LIPITOR) 80 MG tablet Take 1 tablet by mouth Every Night. 90 tablet 02/05/2025 2:10 PM EDT 02/05/2025 finasteride (PROSCAR) 5 MG tablet Take 1 tablet by mouth Daily. 02/23/2025 fludrocortisone 0.1 MG tablet Take 1 tablet by mouth Daily. 03/14/2025 furosemide (LASIX) 20 MG tablet Take 1 [...] by mouth 2 (Two) Times a Day. mycophenolate (CELLCEPT) 500 MG tablet Take 2 tablets by mouth 2 (Two) Times a Day. potassium chloride ER (K-TAB) 20 MEQ tablet controlled-releas e ER tablet Take 1 tablet by mouth Daily. 12/27/2024 ticagrelor (BRILINTA) 90 MG tablet tablet Take 1 tablet by mouth 2 (Two) Times a Day. 02/22/2025 documented as of this encounter Plan of Treatment Upcoming Encounters Date Type Department Care Team (Late st Contact Info) Description 06/09/2025 1:30 PM EST Office Visit [facility] NEUROLOGY [address] [facility] [address] [place] [address] Sadler Fanny H, CHOPPER OPERATOR [address] [facility] [address] [address] 03/16/2026 11:00 AM EDT Appointment [facility]INVASIVE LAB OUTPATIENT CENTER [address] [facility] [address] [place] [address] 03/16/2026 1:00 PM EDT Office Visit [facility] NEUROSURGERY [address] [facility] [address] [place] [id number] Jeffery Phillips PA-C [address] [facility] [address] [place], [place] [id number] documented as of this encounter Procedures Procedure Name Priority Date/Time Associated Diagnosis Comments DUPLEX CAROTID LEFT CAR - PERFORMED PROCEDURE Routine 03/24/2025 12:30 PM EDT Arterial stent thrombosis, initial encounter Acute ischemic stroke 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 documented in this encounter Results * DUPLEX CAROTID LEFT CAR - PERFORMED PROCEDURE (03/24/2025 12:30 PM EDT) Prox CCA PSV 48.2 cm/sec Prox CCA EDV 14.5 cm/sec left Mid CCA PSV 59.6 cm/sec left Mid CCA EDV 15.3 cm/sec Dist CCA PSV 49.6 cm/sec Dist CCA EDV 12.9 cm/sec Prox ICA PSV 39.2 cm/sec Prox ICA EDV 12.6 cm/sec Mid ICA PSV 56.5 cm/sec Mid ICA EDV 19.0 cm/sec Dist ICA PSV 50.3 cm/sec Dist ICA EDV 19.0 cm/sec Prox ECA PSV 111.9 cm/sec Prox ECA EDV 9.5 cm/sec Vertebral A PSV 49.4 cm/sec Vertebral A EDV 16.7 cm/sec Prox SCLA PSV 78.8 cm/sec Lt. Prx to Stent 59.6 cm/s Lt Prx to stent EDV 15.3 cm/s Lt. Prox Stent 49.6 cm/s Lt. Prx stent 12.9 cm/s Lt Mid Stent 38.5 cm/s Lt Mid Stent 12.2 cm/s Lt Distal Stent 39.2 cm/s BH CV VAS CAROTID LEFT DISTAL STENT EDV 12.6 cm/s Lt Dist To Stent 56.5 cm/s BH CV VAS CAROTID LEFT DISTAL TO STENT EDV 19.0 cm/s Left CCA Stent hidden 1.00 cm/s BH CVPROX LEFT ICA HIDDEN LRR 1.00 cm Left arm BP 120/83 mmHg ICA/CCA ratio 0.95 Anatomical Region Laterality Modality Vascular, Head Ultrasound Narrative 03/24/2025 2:25 PM EDT Left carotid stent imaging indicates mild (20-49%) restenosis (plaque versus nonmobile organized thrombus). Antegrade left vertebral flow. Compared to previous duplex of 02/17, the mobile portion in-stent is no longer present Study Impression Left Other Conclusions: Left carotid stent imaging indicates mild (20-49%) restenosis. Study Findings Left CCA Prox: No plaque visualized. Left CCA Mid: No plaque visualized. Left CCA Dist: No plaque visualized. Stented vessel. Left Carotid Bulb: Calcified plaque present. Stented vessel. Left ICA Prox: Stented vessel. Left ICA Mid: No plaque visualized. Left ICA Dist: No plaque visualized. Left ECA: Irregular heterogeneous plaque present. Left Vertebral: Antegrade flow noted. A stent is present and widely patent in the left proximal ICA at time of exam. No elevated in-stent velocities detected. Highest velocity obtained on today's exam measuring 56.5/19.0 cm/s (ratio 0.95). This is compared to prior duplex performed on 02/17/2025 with highest velocity at that time measuring 236.3/50.2 cm/sec (ratio 5.6) distal to stent placement. Antegrade flow in the left vertebral artery. Additional Study Details The study is technically good for diagnosis. Relevant Cardiovascular History: S/P left carotid stent placement performed on 02/04/2025. us Mason Desouza MD CV VASCULAR ORDERABLES Fin al Result documented in this encounter Visit Diagnoses Diagnosis Arterial stent thrombosis, initial encounter Acute ischemic stroke Unspecified cerebral artery occlusion with cerebral infarction 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 documented in this encounter Care Teams Road Consultant Relationship Specialty Start Date End Date Guera Bermeo APRN [facility] [place] [id number] PCP - General Internal Medicine 02/03/25 documented as of this encounter
--- OUTSIDE RECORDS SUMMARY | 2025-03-24 14:00 | XMS_ITS | Encounter Summary ---
Author Organization [facility] Address [address] [place] [id number] Care Team Providers Care Technical Support Assistant Name Role Phone Guera Bermeo APRN Primary Care Provider [phone] Reason for Referral * Diagnostic Imaging (Routine) - Authorized Specialty Diagnoses / Procedures Referred By Contac t Referred To Contact Diagnoses Stenosis of left carotid artery Procedures Duplex Carotid Ultrasound CAR Jeffery Phillips PA-C [address] [place] [address] Phone: tel: fax: Referral ID Status Reason Start Date Expiration Date V isits Requested Visits Authorized [id number] Authorized 03/24/2025 03/24/2028 1 1 Reason for Visit * Reason Comments Follow-up Encounter Details Date Type Department Care Team (Late st Contact Info) Description 03/24/2025 3:00 PM EDT Office Visit [facility] NEUROSURGERY [address] [address] Jeffery Phillips PA-C [address] [place] [address] Stenosis of left carotid artery (Primary Dx) Social History Tobacco Use Types Packs/Day Years Used Date Smoking Tobacco: Never Passive Smoke Exposure: Never Smokeless Tobacco: Current Chew Tobacco Cessation:Ready to Q uit: No; Counseling Given: No Alcohol Use Standard Drinks/Week Comments Never 0 (1 standard drink = 0.6 oz pur e alcohol) [place] [facility] Utilities Answer Date Recorded In the [...] Sign Reading Time Taken Comments Blood Pressure 136/98 03/24/2025 1:56 PM EDT Pulse - - Temperature 36.1 C (97 F) 03/24/2025 1:56 PM EDT Respiratory Rate - - Oxygen Saturation - - Inhaled Oxygen Concentration - - Weight 65.8 kg (145 lb) 03/24/2025 1:56 PM EDT Height 157.5 cm (5' 2 ) 03/24/2025 1:56 PM EDT Body Mass Index 26.52 03/24/2025 1:56 PM EDT documented in this encounter Functional Status * AUDIT-C Score Answer Date of Assessment Author 0 03/24/2025 1:57 PM EDT Caleb Hull * Question Answer Date of Assessment Author [...] Kamar Hull documented as of this encounter Progress Notes * Jeffery Phillips PA-C - 03/24/2025 3:00 PM EDT Patient: Derrick Roach : 1950 Primary Care Provider: Guera Bermeo APRN Chief Complaint: Right-sided weakness/facial droop History of Present Illness: Patient is a nice 75-year-old gentleman who has known hypertension hyperlipidemia diabetes coronaryartery disease with a right sided hemispheric stroke. Patient was seen in early January with a nasty lipid-laden plaque of the left carotid that required stenting. Patient was loaded on Plavix atthat time and showed response but was faithful with the medication however came back with IN U of 234. Patient was then switched 2 weeks later to Brilinta after noting that he had in- stent rethrombosis which is actually quite rare. Patient was monitored closely and actually had resolution of his symptoms so was watched and monitored. Patient is back today with a 1 month follow-up ultrasound to ensure that there is patency in the stent. Patient reports improvement of the speech along with some of the right upper extremity weakness. Patient's facial droop is also gone Review of Systems Constitutional: Negative for activity change, appetite change, chills, diaphoresis, fatigue, fever and unexpected weight change. HENT: Negative for congestion, dental problem, drooling, ear discharge, ear pain, facial swelling, hearing loss, mouth sores, nosebleeds, postnasal drip, rhinorrhea, sinus pressure, sinus pain, sneezing, sore throat, tinnitus, trouble swallowing and voice change. Eyes: Negative for photophobia, pain, discharge, redness, itching and visual disturbance. Respiratory: Negative for apnea, cough, choking, chest tightness, shortness of breath, wheezing andstridor. Cardiovascular: Negative for chest pain, palpitations and leg swelling. Gastrointestinal: Negative for abdominal distention, abdominal pain, anal bleeding, blood in stool,constipation, diarrhea, nausea, rectal pain and vomiting. Endocrine: Negative for cold intolerance, heat intolerance, polydipsia, polyphagia and polyuria. Genitourinary: Negative for decreased urine volume, difficulty urinating, dysuria, enuresis, flank pain, frequency, genital sores, hematuria, penile discharge, penile pain, penile swelling, scrotal swelling, testicular pain and urgency. Musculoskeletal: Negative for arthralgias, back pain, gait problem, joint swelling, myalgias, neck pain and neck stiffness. Skin: Negative for color change, pallor, rash and wound. Allergic/Immunologic: Negative for environmental allergies, food allergies and immunocompromised state. Neurological: Negative for dizziness, tremors, seizures, syncope, facial asymmetry, speech difficulty, weakness, light-headedness, numbness and headaches. Hematological: Negative for adenopathy. Does not bruise/bleed easily. Psychiatric/Behavioral: Negative for agitation, behavioral problems, confusion, decreased concentration, dysphoric mood, hallucinations, self-injury, sleep disturbance and suicidal ideas. The patientis not nervous/anxious and is not hyperactive. Past Medical History: Past Medical History: Diagnosis Date Anemia Carotid artery stenosis Coronary artery disease Diabetes mellitus Disease of thyroid gland Hypercholesterolemia Hypertension Osteoarthritis Renal disease Rheumatoid arthritis Stroke Thyroid disease TIA (transient ischemic attack) Family History: No family history on file. Social History: reports that he has never smoked. He has never been exposed to tobacco smoke. His smokeless tobaccouse includes chew. He reports that he does not drink alcohol and does not use drugs. SMOKING STATUS: Non-smoker Surgical History: Past Surgical History: Procedure Laterality Date CAROTID STENT N/A 02/04/2025 Procedure: Left Carotid Stent; Surgeon: Mason Desouza MD; Location: [facility] CATH INVASIVE LOCATION; Service: Interventional Radiology; Laterality: N/A; Allergies: Patient has no known allergies. Physical Exam: Vital Signs:BP 136/98 (BP Location: Left arm, Patient Position: Sitting, Cuff Size: Adult) Temp 97 ??F (36.1 ??C) (Infrared) Ht 157.5 cm (62 ) Wt 65.8 kg (145 lb) BMI 26.52 kg/m?? BMI: Body mass index is 26.52 kg/m??. GENERAL: The patient is in no acute distress, and is able to answer all questions appropriately. 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 Shoulder abduction is 5 out of 5. Dorsiflexion is 5/5 Bilaterally Plantarflexion is 5/5 bilaterally Hip Flexion 5/5 bilaterally. Neurologic: The patient is alert and oriented by 3. Pupils are equal and reactive to light. Visual phillips are full. Extraocular movements are intact without nystagmus. There is no evidence of central motor drift. No facial droop. No difficulty with rapid alternating movements. Sensation is equal bilaterally with no deficit. Reflexes: 2+ @ biceps, triceps, brachioradialis, as well as the patellar and Achilles tendon bilaterally. Medical Decision Making Data Review: Carotid duplex 03/24/2025: Carotid Velocities - Left Side Systolic Diastolic CCA Prox 48.2 cm/sec 14.5 cm/sec CCA Mid 59.6 cm/sec 15.3 cm/sec CCA Dist 49.6 cm/sec 12.9 cm/sec ICA Prox 39.2 cm/sec 12.6 cm/sec ICA Mid 56.5 cm/sec 19 cm/sec ICA Dist 50.3 cm/sec 19 cm/sec ECA 111.9 cm/sec 9.5 cm/sec Vertebral 49.4 cm/sec 16.7 cm/sec Subclavian 78.8 cm/sec ICA/CCA 0.95 Carotid Stent Velocities - Left Peak Systolic Velocity End Diastolic Velocity Prox to stent 59.6 cm/s 15.3 cm/s Prox stent 49.6 cm/s 12.9 cm/s Mid Stent 38.5 cm/s 12.2 cm/s Dist stent 39.2 cm/s 12.6 cm/s Distal to stent 56.5 cm/s 19 cm/s Diagnosis: Plavix partial responder Recent symptomatic high-grade carotid artery stenosis with CVA History of right sided CVA Treatment Options: Patient is doing well and showing good response with Brilinta aspirin and Lipitor. The patient's velocities are perfect. Patient will maintain dual antiplatelet therapy indefinitely. With his history of her in-stent rethrombosis I think lifelong dual antiplatelet therapy is not unreasonable as long as he is tolerating it as he is currently. Patient will see us back in 1 years time with repeat duplex ultrasound of the bilateral carotid arteries BMI is >= 25 and <30. (Overweight) The following options were offered after discussion;: weight loss educational material (shared in after visit summary) Diagnosis Plan 1. Stenosis of left carotid artery Duplex Carotid Ultrasound CAR documented in this encounter Plan of Treatment Upcoming Encounters Date Type Department Care Team (Late st Contact Info) Description 06/09/2025 1:30 PM EST Office Visit [facility] NEUROLOGY [address] [place] [address] [place], [place] [id number] Fanny Sadler, FISHING TACKLE REPAIRER [address] [facility] [address] [address] 03/16/2026 11:00 AM EDT Appointment [facility] NONINVASIVE LAB OUTPATIENT CENTER [address] [facility] [address] [place] [address] 03/16/2026 1:00 PM EDT Office Visit [facility] NEUROSURGERY [address] [facility] [address] [place] [phone] Jeffery Phillips PA-C [address] [facility] [address] [place] [address] Scheduled Orders Name Type Priority Associated Diagnoses Order Schedule Duplex Carotid Ultrasound CAR Vascular Ultrasound Routine Stenosis of left carotid artery Ordered: 03/24/2025 documented as of this encounter Visit Diagnoses Diagnosis Stenosis of left carotid artery- Primary Occlusion and stenosis of carotid artery without mention of cerebral infarction documented in this encounter Care Teams Technical Support Assistant Relationship Specialty Start Date End Date Guera Bermeo APRN [address] [place] [id number] PCP - General Internal Medicine 02/03/25 documented as of this encounter
--- OUTSIDE RECORDS SUMMARY | 2025-05-08 19:00 | XMS_ITS | Clinical Summary ---
Author Organization Unknown Care Team Providers Care Dietary Assistant Name Role Phone KENDRA CLOTH REELER, JANET Unavailable Unavailable MARGE RN, TAHMINA Unavailable Unavailable TERESO PT, KIKA Unavailable Unavailable SERINA FACILITIES MANAGER, SADIE Unavailable Unavailable FEEALIREZA OT, HINA Unavailable Unavailable MARTA ST, XIOMARA Unavailable Unavailable BERNARDINO ZARATEN, MAXIMILIAN Unavailable Unav ailable Payers Payer Name Policy Type Policy Number Effective Date Expira tion Date MEDICARE.[facility] [id number] Problems Condition Name Condition Details Condition Category Status Onset Date Resolution Date Last Treatment Date Treating Clinician Comments 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 02-22 00:00: 00 APHASIA FOLLOWING CEREBRAL INFARCTION Active 02-22 00:00: 00 DYSARTHRIA FOLLOWING CEREBRAL INFARCTION Active 02-22 00:00: 00 OTHER SYMPTOMS AND SIGNS W COGN FNCTNS FOL CEREBRAL INFRC Active 02-22 00:00: 00 DYSPHAGIA FOLLOWING CEREBRAL INFARCTION Active 02-22 00:00: 00 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, SUBS Active 02-22 00:00: 00 TYPE 2 DIABETES W DIABETIC PERIPHERAL ANGIOPATH W/O GANGRENE Active 02-22 00:00: 00 TYPE 2 DIABETES MELLITUS WITH DIABETIC POLYNEUROPAT HY Active 02-22 00:00: 00 ESSENTIAL (PRIMARY) HYPERTENSION Active 02-22 00:00: 00 ATHSCL HEART DISEASE OF [place] CORONARY ARTERY W/O ANG PCTRS Active 02-22 00:00: 00 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[place], AORTIC AND TRICUSPID VALVES Active 02-22 00:00: 00 PRIMARY GENERALIZED (OSTEO)ARTHR ITIS Active 02-22 00:00: 00 PURE HYPERCHOLEST EROLEMIA, UNSPECIFIED Active 02-22 00:00: 00 BENIGN PROSTATIC HYPERPLASIA WITHOUT LOWER URINRY TRACT SYMP Active 02-22 00:00: 00 RESIDENTIAL (CURRENT) USE OF ORAL HYPOGLYCEMIC DRUGS Active 02-22 00:00: 00 HANDKERCHIEF MAKER (CURRENT) USE OF ANTICOAGULAN TS Active 02-22 00:00: 00 PERSONAL HISTORY OF OTHER MALIGNANT NEOPLASM OF SKIN Active 02-22 00:00: 00 Allergies, Adverse Reactions, Alerts Allergy Name Allergy Type Status Severity Reaction(s) Onset Date Inactive Date Treating Clinician Comments NO KNOWN ALLERGIES Propensity to adverse reactions Active 2024-05 15:07: 10 Medications Ordered Medication Name Filled Medication Name Start Date Stop Date Current Medication? Ordering Clinician Indication Dosage Frequency Signature (SIG) Comments Components metformin 1,000 mg tablet 01-21 00:00: 00 Yes [id number] DM 1 tablet TWICE DAILY 1 tablet TWICE DAILY (route: oral) Med Classific ation: Endocrine furosemide 20 mg tablet 01-10 00:00: 00 03-18 23:59 :00 No [id number] DIURETIC 20 mg NEEDED 20 mg NEEDED (route: oral) Med Classific ation: Cardiovas cular Therapy Agents isosorbide mononitrate ER 30 mg tablet,exte nded release 24 hr 01-10 00:00: 00 02-14 00:00 :00 No [id number] Per instruc tions ONCE DAILY Per instructio ns ONCE DAILY (route: oral) Med Classific ation: Cardiovas cular Therapy Agents atorvastati n 20 mg tablet 02-14 00:00: 00 03-18 23:59 :00 No [id number] CHOLESTEROL 20 mg DAILY 20 mg DAILY (route: oral) Med Classific ation: Cardiovas cular Therapy Agents CellCept 250 mg capsule 02-14 00:00: 00 Yes [id number] RA 250 capsule 2 TIMES DAILY 250 capsule 2 TIMES DAILY (route: oral) Med Classific ation: Immunosup pressive Agents Plavix 75 mg tablet 02-14 00:00: 00 03-18 23:59 :00 No [id number] THINNER 75 mg DAILY 75 mg DAILY (route: oral) Med Classific ation: Hematolog ical Agents aspirin 81 mg tablet,gladys yed release 2024-05 00:00: 00 Yes [id number] ANTIPLATELE TS 1 tablet DAILY 1 tablet DAILY (route: oral) Med Classific ation: Hematolog ical Agents atorvastati n 80 mg tablet 2024-05 00:00: 00 Yes [id number] CHOLESTEROL 1 tablet BEDTIME 1 tablet BEDTIME (route: oral) Med Classific ation: Cardiovas cular Therapy Agents Brilinta 90 mg tablet 2024-05 00:00: 00 Yes [id number] ANTIPLATELE TS 1 tablet 2 TIMES DAILY 1 tablet 2 TIMES DAILY (route: oral) Med Classific ation: Hematolog ical Agents finasteride 5 mg tablet 2024-05 00:00: 00 Yes [id number] BPH 1 tablet BEFORE DINNER 1 tablet BEFORE DINNER (route: oral) Med Classific ation: Genitouri nary Therapy fludrocorti sone 0.1 mg tablet 2024-05 00:00: 00 Yes [id number] LOW BP 1 tablet DAILY 1 tablet DAILY (route: oral) Med Classific ation: Endocrine Lexapro 10 mg tablet 2024-05 00:00: 00 Yes [id number] MOOD 1 tablet DAILY 1 tablet DAILY (route: oral) Med Classific ation: Central Nervous System Agents midodrine 10 mg tablet 2024-05 00:00: 00 Yes [id number] LOW BP 1 tablet 3 TIMES DAILY 1 tablet 3 TIMES DAILY (route: oral) Med Classific ation: Cardiovas cular Therapy Agents Vital Signs Vital Name Observation Time Observation Value Commen ts Temperature 2025-05-06 16:20:00.000 97.3 [degF] Temperature 2025-05-06 14:11:00.000 98 [degF] Temperature 2025-04-29 10:21:00.000 97.6 [degF] Temperature 2025-04-22 13:54:00.000 98.6 [degF] Temperature 2025-04-19 12:28:00.000 97 [degF] Temperature 2025-04-18 14:48:00.000 97.8 [degF] Temperature 2025-04-15 14:20:00.000 97.1 [degF] Temperature 2025-04-13 14:12:00.000 98.4 [degF] Temperature 2025-04-07 14:50:00.000 99.1 [degF] Temperature 2025-04-04 16:32:00.000 97.6 [degF] Temperature 2025-04-04 13:36:00.000 98.3 [degF] Temperature 2025-03-30 11:31:00.000 98.7 [degF] Temperature 2025-03-29 16:38:00.000 97.6 [degF] Temperature 2025-03-25 15:27:00.000 96.9 [degF] Temperature 2025-03-25 13:33:00.000 97.3 [degF] Temperature 2025-03-22 13:25:00.000 98.7 [degF] Temperature 2025-03-18 13:25:00.000 98.7 [degF] Temperature 2025-03-16 13:35:00.000 97.6 [degF] Temperature 2025-03-11 14:59:00.000 99.2 [degF] BMI (%) 2025-03-11 14:59:00.000 21 kg/m2 Height 2025-03-11 14:59:00.000 69 [in_us] Pulse 2025-05-06 16:20:00.000 69 /min Pulse 2025-05-06 14:11:00.000 79 /min Pulse 2025-04-29 10:21:00.000 78 /min Pulse 2025-04-22 13:54:00.000 80 /min Pulse 2025-04-20 11:14:00.000 66 /min Pulse 2025-04-19 12:28:00.000 74 /min Pulse 2025-04-18 14:48:00.000 70 /min Pulse 2025-04-15 14:20:00.000 79 /min Pulse 2025-04-13 16:25:00.000 66 /min Pulse 2025-04-13 14:12:00.000 78 /min Pulse 2025-04-07 14:50:00.000 73 /min Pulse 2025-04-06 14:00:00.000 76 /min Pulse 2025-04-04 16:32:00.000 69 /min Pulse 2025-04-04 13:36:00.000 72 /min Pulse 2025-03-31 14:35:00.000 61 /min Pulse 2025-03-30 11:31:00.000 79 /min Pulse 2025-03-29 16:38:00.000 68 /min Pulse 2025-03-25 15:27:00.000 69 /min Pulse 2025-03-25 14:23:00.000 81 /min Pulse 2025-03-25 13:33:00.000 68 /min Pulse 2025-03-22 13:25:00.000 71 /min Pulse 2025-03-18 13:25:00.000 62 /min Pulse 2025-03-16 13:35:00.000 76 /min Pulse 2025-03-16 12:15:00.000 76 /min Pulse 2025-03-15 12:42:00.000 72 /min Pulse 2025-03-11 14:59:00.000 68 /min O2 Saturation (%) 2025-05-06 16:20:00.000 100 % O2 Saturation (%) 2025-05-06 14:11:00.000 97 % O2 Saturation (%) 2025-04-20 11:14:00.000 96 % O2 Saturation (%) 2025-04-19 12:28:00.000 97 % O2 Saturation (%) 2025-04-18 14:48:00.000 99 % O2 Saturation (%) 2025-04-15 14:20:00.000 97 % O2 Saturation (%) 2025-04-13 15:56:00.000 98 % O2 Saturation (%) 2025-04-13 14:12:00.000 97 % O2 Saturation (%) 2025-04-06 14:00:00.000 98 % O2 Saturation (%) 2025-03-31 14:35:00.000 94 % O2 Saturation (%) 2025-03-30 11:31:00.000 97 % O2 Saturation (%) 2025-03-25 14:23:00.000 98 % O2 Saturation (%) 2025-03-22 13:25:00.000 97 % O2 Saturation (%) 2025-03-18 13:25:00.000 98 % O2 Saturation (%) 2025-03-15 12:42:00.000 97 % Respirations 2025-05-06 16:20:00.000 18 /min Respirations 2025-05-06 14:11:00.000 18 /min Respirations 2025-04-29 10:21:00.000 18 /min Respirations 2025-04-22 13:54:00.000 18 /min Respirations 2025-04-20 11:14:00.000 18 /min Respirations 2025-04-19 12:28:00.000 18 /min Respirations 2025-04-18 14:48:00.000 18 /min Respirations 2025-04-15 14:20:00.000 18 /min Respirations 2025-04-13 15:56:00.000 18 /min Respirations 2025-04-13 14:12:00.000 16 /min Respirations 2025-04-07 14:50:00.000 18 /min Respirations 2025-04-06 14:00:00.000 18 /min Respirations 2025-04-04 16:32:00.000 18 /min Respirations 2025-04-04 13:36:00.000 18 /min Respirations 2025-03-31 14:35:00.000 17 /min Respirations 2025-03-30 11:31:00.000 16 /min Respirations 2025-03-29 16:38:00.000 18 /min Respirations 2025-03-25 15:27:00.000 18 /min Respirations 2025-03-25 14:23:00.000 18 /min Respirations 2025-03-25 13:33:00.000 18 /min Respirations 2025-03-22 13:25:00.000 16 /min Respirations 2025-03-18 13:25:00.000 16 /min Respirations 2025-03-16 13:35:00.000 18 /min Respirations 2025-03-16 12:15:00.000 18 /min Respirations 2025-03-15 12:42:00.000 18 /min Respirations 2025-03-11 14:59:00.000 18 /min Weight (lbs) 2025-03-11 14:59:00.000 145 [lb_av] Systolic Blood Pressure 2025-05-06 16:20:00.000 132 mm [Hg] Systolic Blood Pressure 2025-05-06 14:11:00.000 140 mm [Hg] Systolic Blood Pressure 2025-04-29 10:21:00.000 126 mm [Hg] Systolic Blood Pressure 2025-04-22 13:54:00.000 118 mm [Hg] Systolic Blood Pressure 2025-04-20 11:14:00.000 110 mm [Hg] Systolic Blood Pressure 2025-04-19 12:28:00.000 124 mm [Hg] Systolic Blood Pressure 2025-04-18 14:48:00.000 130 mm [Hg] Systolic Blood Pressure 2025-04-15 14:20:00.000 118 mm [Hg] Systolic Blood Pressure 2025-04-13 15:56:00.000 110 mm [Hg] Systolic Blood Pressure 2025-04-13 14:12:00.000 122 mm [Hg] Systolic Blood Pressure 2025-04-07 14:50:00.000 152 mm [Hg] Systolic Blood Pressure 2025-04-06 14:00:00.000 132 mm [Hg] Systolic Blood Pressure 2025-04-04 16:32:00.000 130 mm [Hg] Systolic Blood Pressure 2025-04-04 13:36:00.000 110 mm [Hg] Systolic Blood Pressure 2025-03-31 14:35:00.000 110 mm [Hg] Systolic Blood Pressure 2025-03-30 11:31:00.000 126 mm [Hg] Systolic Blood Pressure 2025-03-29 16:38:00.000 128 mm [Hg] Systolic Blood Pressure 2025-03-25 15:27:00.000 118 mm [Hg] Systolic Blood Pressure 2025-03-25 14:23:00.000 120 mm [Hg] Systolic Blood Pressure 2025-03-25 13:33:00.000 130 mm [Hg] Systolic Blood Pressure 2025-03-22 13:25:00.000 108 mm [Hg] Systolic Blood Pressure 2025-03-18 13:25:00.000 116 mm [Hg] Systolic Blood Pressure 2025-03-16 13:35:00.000 112 mm [Hg] Systolic Blood Pressure 2025-03-16 12:15:00.000 112 mm [Hg] Systolic Blood Pressure 2025-03-15 12:42:00.000 120 mm [Hg] Systolic Blood Pressure 2025-03-11 14:59:00.000 144 mm [Hg] Diastolic Blood Pressure 2025-05-06 16:20:00.000 70 mm [Hg] Diastolic Blood Pressure 2025-05-06 14:11:00.000 78 mm [Hg] Diastolic Blood Pressure 2025-04-29 10:21:00.000 69 mm [Hg] Diastolic Blood Pressure 2025-04-22 13:54:00.000 75 mm [Hg] Diastolic Blood Pressure 2025-04-20 11:14:00.000 64 mm [Hg] Diastolic Blood Pressure 2025-04-19 12:28:00.000 72 mm [Hg] Diastolic Blood Pressure 2025-04-18 14:48:00.000 87 mm [Hg] Diastolic Blood Pressure 2025-04-15 14:20:00.000 64 mm [Hg] Diastolic Blood Pressure 2025-04-13 15:56:00.000 66 mm [Hg] Diastolic Blood Pressure 2025-04-13 14:12:00.000 74 mm [Hg] Diastolic Blood Pressure 2025-04-07 14:50:00.000 55 mm [Hg] Diastolic Blood Pressure 2025-04-06 14:00:00.000 79 mm [Hg] Diastolic Blood Pressure 2025-04-04 16:32:00.000 69 mm [Hg] Diastolic Blood Pressure 2025-04-04 13:36:00.000 70 mm [Hg] Diastolic Blood Pressure 2025-03-31 14:35:00.000 64 mm [Hg] Diastolic Blood Pressure 2025-03-30 11:31:00.000 62 mm [Hg] Diastolic Blood Pressure 2025-03-29 16:38:00.000 84 mm [Hg] Diastolic Blood Pressure 2025-03-25 15:27:00.000 62 mm [Hg] Diastolic Blood Pressure 2025-03-25 14:23:00.000 66 mm [Hg] Diastolic Blood Pressure 2025-03-25 13:33:00.000 78 mm [Hg] Diastolic Blood Pressure 2025-03-22 13:25:00.000 66 mm [Hg] Diastolic Blood Pressure 2025-03-18 13:25:00.000 54 mm [Hg] Diastolic Blood Pressure 2025-03-16 13:35:00.000 70 mm [Hg] Diastolic Blood Pressure 2025-03-16 12:15:00.000 70 mm [Hg] Diastolic Blood Pressure 2025-03-15 12:42:00.000 62 mm [Hg] Diastolic Blood Pressure 2025-03-11 14:59:00.000 55 mm [Hg] Plan of Treatment Planned Activity Planned Date Details Comments Future Scheduled Test RN TO OBSE RVE, ASSESS, EVALUATE, AND DEVELOP AN INDIVIDUALIZED PLAN OF CARE. AGENCY MAY ACCEPT ORDERS FROM CONSULTING PHYSICIANS RN TO OBSERVE AND ASSESS, PAPER BAG MAKING MACHINIST/CONTROL ROOM AGENT TO OBSERVE FOR RISK FOR FALLS AND INSTRUCT IN FALL PREVENTION, HOME SAFETY, MEDICATION MANAGEMENT, INFECTION PREVENTION, AND NUTRITION MANAGEMENT. RN/PAPER BAG MAKING MACHINIST/CONTROL ROOM AGENT NURSE MAY PERFORM O2 SATURATION LEVEL ON ADMISSION AND PRN FOR RN TO ASSESS/PAPER BAG MAKING MACHINIST TO OBSERVE PATIENT, WITH NOTIFICATION TO THE PHYSICIAN IF SATURATION IS 90% IN THE ABSENCE OF MORE SPECIFIC PARAMETERS FROM THE PHYSICIAN. AGENCY MAY PERFORM A RESUMPTION OF CARE VISIT FOLLOWING ANY HOSPITAL ADMISSION. RN/PAPER BAG MAKING MACHINIST/CONTROL ROOM AGENT TO MONITOR CO-MORBID CONDITIONS LISTED ON THE PLAN OF CARE AND ANY NEW CONDITIONS THAT PRESENT THEMSELVES DURING THIS EPISODE TO IDENTIFY CHANGES AND INTERVENE TO MINIMIZE COMPLICATIONS. [code = RN TO OBSERVE, ASSESS, EVALUATE, AND DEVELOP AN INDIVIDUALIZED PLAN OF CARE. AGENCY MAY ACCEPT ORDERS FROM CONSULTING PHYSICIANS RN TO OBSERVE AND ASSESS, PAPER BAG MAKING MACHINIST/CONTROL ROOM AGENT TO OBSERVE FOR RISK FOR FALLS AND INSTRUCT IN FALL PREVENTION, HOME SAFETY, MEDICATION MANAGEMENT, INFECTION PREVENTION, AND NUTRITION MANAGEMENT. RN/PAPER BAG MAKING MACHINIST/CONTROL ROOM AGENT NURSE MAY PERFORM O2 SATURATION LEVEL ON ADMISSION AND PRN FOR RN TO ASSESS/PAPER BAG MAKING MACHINIST TO OBSERVE PATIENT, WITH NOTIFICATION TO THE PHYSICIAN IF SATURATION IS 90% IN THE ABSENCE OF MORE SPECIFIC PARAMETERS FROM THE PHYSICIAN. AGENCY MAY PERFORM A RESUMPTION OF CARE VISIT FOLLOWING ANY HOSPITAL ADMISSION. RN/PAPER BAG MAKING MACHINIST/CONTROL ROOM AGENT TO MONITOR CO-MORBID CONDITIONS LISTED ON THE PLAN OF CARE AND ANY NEW CONDITIONS THAT PRESENT THEMSELVES DURING THIS EPISODE TO IDENTIFY CHANGES AND INTERVENE TO MINIMIZE COMPLICATIONS.] Future Scheduled Test RISK FOR H OSPITALIZATION; RN TO ASSESS/TEACH, CONTROL ROOM AGENT/PAPER BAG MAKING MACHINIST TO OBSERVE/TEACH PATIENT/CAREGIVER ON RISK FOR HOSPITALIZATION/EMERGENCY ROOM VISITS, TEACH SIGNS AND SYMPTOMS THAT PUT PATIENT AT RISK, WHEN TO NOTIFY NURSE/PHYSICIAN OF COMPLICATIONS/DECLINE, AND WHEN TO CALL 911. [code = RISK FOR HOSPITALIZATION; RN TO ASSESS/TEACH, CONTROL ROOM AGENT/PAPER BAG MAKING MACHINIST TO OBSERVE/TEACH PATIENT/CAREGIVER ON RISK FOR HOSPITALIZATION/EMERGENCY ROOM VISITS, TEACH SIGNS AND SYMPTOMS THAT PUT PATIENT AT RISK, WHEN TO NOTIFY NURSE/PHYSICIAN OF COMPLICATIONS/DECLINE, AND WHEN TO CALL 911.] Future Scheduled Test CARDIOVASC ULAR SYSTEM; RN TO ASSESS/TEACH, PAPER BAG MAKING MACHINIST/CONTROL ROOM AGENT TO OBSERVE/TEACH RELATED TO ALTERED CARDIOVASCULAR STATUS TO MINIMIZE COMPLICATIONS AND REDUCE HOSPITALIZATION. [code = CARDIOVASCULAR SYSTEM; RN TO ASSESS/TEACH, PAPER BAG MAKING MACHINIST/CONTROL ROOM AGENT TO OBSERVE/TEACH RELATED TO ALTERED CARDIOVASCULAR STATUS TO MINIMIZE COMPLICATIONS AND REDUCE HOSPITALIZATION.] Future Scheduled Test NEUROLOGIC AL SYSTEM MANAGEMENT; RN TO ASSESS AND TEACH, CONTROL ROOM AGENT/PAPER BAG MAKING MACHINIST TO OBSERVE AND TEACH RELATED TO ALTERED NEUROLOGICAL STATUS TO MINIMIZE COMPLICATIONS AND REDUCE HOSPITALIZATION. [code = NEUROLOGICAL SYSTEM MANAGEMENT; RN TO ASSESS AND TEACH, CONTROL ROOM AGENT/PAPER BAG MAKING MACHINIST TO OBSERVE AND TEACH RELATED TO ALTERED NEUROLOGICAL STATUS TO MINIMIZE COMPLICATIONS AND REDUCE HOSPITALIZATION.] Future Scheduled Test CEREBRAL V ASCULAR ACCIDENT MANAGEMENT; RN/CONTROL ROOM AGENT/PAPER BAG MAKING MACHINIST TO PROVIDE SKILLED TEACHING AND MANAGEMENT OF POST CEREBRAL VASCULAR ACCIDENT. [code = CEREBRAL VASCULAR ACCIDENT MANAGEMENT; RN/CONTROL ROOM AGENT/PAPER BAG MAKING MACHINIST TO PROVIDE SKILLED TEACHING AND MANAGEMENT OF POST CEREBRAL VASCULAR ACCIDENT.] Future Scheduled Test FALL REDUC TION MANAGEMENT; RN TO ASSESS AND OBSERVE, PAPER BAG MAKING MACHINIST/CONTROL ROOM AGENT TO OBSERVE FALL RISK FACTORS AND EDUCATE PATIENT/CAREGIVER ON STRATEGIES TO MINIMIZE THE RISK OF FALLING. [code = FALL REDUCTION MANAGEMENT; RN TO ASSESS AND OBSERVE, PAPER BAG MAKING MACHINIST/CONTROL ROOM AGENT TO OBSERVE FALL RISK FACTORS AND EDUCATE PATIENT/CAREGIVER ON STRATEGIES TO MINIMIZE THE RISK OF FALLING.] Future Scheduled Test PHYSICAL T HERAPIST TO EVALUATE FOR GAIT AND BALANCE [code = PHYSICAL THERAPIST TO EVALUATE FOR GAIT AND BALANCE] Future Scheduled Test OCCUPATION AL THERAPIST TO EVALUATE FOR SAFETY IN ADLS IADLS [code = OCCUPATIONAL THERAPIST TO EVALUATE FOR SAFETY IN ADLS IADLS] Future Scheduled Test SPEECH THE RAPIST TO EVALUATE FOR SLURRED AND SLOW SPEECH [code = SPEECH THERAPIST TO EVALUATE FOR SLURRED AND SLOW SPEECH] Future Scheduled Test AGENCY MAY PERFORM A RESUMPTION OF CARE VISIT FOLLOWING ANY HOSPITAL ADMISSION. OT TO EVALUATE, OBSERVE / ASSESS, AND MONITOR, PIT SUPERVISOR TO OBSERVE AND MONITOR, PROVIDE SKILLED THERAPEUTIC INTERVENTION, ACTIVITY, EDUCATION, AND TRAINING TO ADDRESS;BALANCE , STRENGTH, ACTIVITY, SELF CARE PERFORMANCE BATHING/SHOWERING (OT/ANTONELLA) TOILETING HYGIENE (OT/PIT SUPERVISOR) DRESSING (OT/ANTONELLA) ACTIVITIES OF DAILY LIVING (OT/PIT SUPERVISOR) TOILET TRANSFER (OT/PIT SUPERVISOR) ITEM RETRIEVAL AND TRANSPORTATION (OT/PIT SUPERVISOR) HOME ACTIVITY / EXERCISE PROGRAM (OT/ANTONELLA) POSTURAL CONTROL/BALANCE (OT/ANTONELLA) OT / PIT SUPERVISOR TO EDUCATE ON CVA SELF-MANAGEMENT [code = AGENCY MAY PERFORM A RESUMPTION OF CARE VISIT FOLLOWING ANY HOSPITAL ADMISSION. OT TO EVALUATE, OBSERVE / ASSESS, AND MONITOR, PIT SUPERVISOR TO OBSERVE AND MONITOR, PROVIDE SKILLED THERAPEUTIC INTERVENTION, ACTIVITY, EDUCATION, AND TRAINING TO ADDRESS;BALANCE , STRENGTH, ACTIVITY, SELF CARE PERFORMANCE BATHING/SHOWERING (OT/ANTONELLA) TOILETING HYGIENE (OT/PIT SUPERVISOR) DRESSING (OT/PIT SUPERVISOR) ACTIVITIES OF DAILY LIVING (OT/PIT SUPERVISOR) TOILET TRANSFER (OT/ANTONELLA) ITEM RETRIEVAL AND TRANSPORTATION (OT/PIT SUPERVISOR) HOME ACTIVITY / EXERCISE PROGRAM (OT/ANTONELLA) POSTURAL CONTROL/BALANCE (OT/ANTONELLA) OT / ANTONELLA TO EDUCATE ON CVA SELF-MANAGEMENT] Future Scheduled Test AGENCY MAY PERFORM A RESUMPTION OF CARE VISIT FOLLOWING ANY HOSPITAL ADMISSION. ST TO EVALUATE, ASSESS AND MONITOR, PROVIDE SKILLED THERAPEUTIC INTERVENTION, ACTIVITY, EDUCATION, AND TRAINING TO ADDRESS: COGNITIVE COMMUNICATION, WORD RETRIEVAL, DYSARTHRIA ST TO PROVIDE EDUCATION TO ADDRESS DYSARTHRIA ST TO PROVIDE EDUCATION TO ADDRESS APHASIA ST TO EDUCATE ON CVA SELF-MANAGEMENT ST TO IDENTIFY FALL RISK FACTORS; EDUCATE THE PATIENT/CAREGIVER ON WAYS TO REDUCE FALL RISK FACTORS. ST MAY EDUCATE ON PAIN MANAGEMENT CLINICALLY INDICATED, INCLUDING NON-PHARMACOLOGICAL PAIN REDUCTION TECHNIQUES (RELAXATION/DISTRACTION/REPOSITIONING/BIO FEEDBACK) FOR PAIN MANAGEMENT [code = AGENCY MAY PERFORM A RESUMPTION OF CARE VISIT FOLLOWING ANY HOSPITAL ADMISSION. ST TO EVALUATE, ASSESS AND MONITOR, PROVIDE SKILLED THERAPEUTIC INTERVENTION, ACTIVITY, EDUCATION, AND TRAINING TO ADDRESS: COGNITIVE COMMUNICATION, WORD RETRIEVAL, DYSARTHRIA ST TO PROVIDE EDUCATION TO ADDRESS DYSARTHRIA ST TO PROVIDE EDUCATION TO ADDRESS APHASIA ST TO EDUCATE ON CVA SELF-MANAGEMENT ST TO IDENTIFY FALL RISK FACTORS; EDUCATE THE PATIENT/CAREGIVER ON WAYS TO REDUCE FALL RISK FACTORS. ST MAY EDUCATE ON PAIN MANAGEMENT CLINICALLY INDICATED, INCLUDING NON-PHARMACOLOGICAL PAIN REDUCTION TECHNIQUES (RELAXATION/DISTRACTION/REPOSITIONING/BIO FEEDBACK) FOR PAIN MANAGEMENT] Future Scheduled Test AGENCY MAY PERFORM A RESUMPTION OF CARE VISIT FOLLOWING ANY HOSPITAL ADMISSION. PT TO EVALUATE, OBSERVE / ASSESS, AND MONITOR, FACILITIES MANAGER TO OBSERVE AND MONITOR, PROVIDE SKILLED THERAPEUTIC INTERVENTION, ACTIVITY, EDUCATION, AND TRAINING TO ADDRESS; PT/FACILITIES MANAGER TO PROVIDE GAIT TRAINING FOR IMPROVED MOBILITY AND /OR TO NORMALIZE GAIT PATTERN NEUROMUSCULAR RE-EDUCATION / BALANCE / POSTURAL CONTROL (PT) THERAPEUTIC EXERCISES AND ESTABLISHING A HOME EXERCISE PROGRAM (PT/FACILITIES MANAGER) PT/FACILITIES MANAGER TO PROVIDE STAIR TRAINING SIT TO/FROM STAND TRANSFERS (PT/FACILITIES MANAGER) PT / FACILITIES MANAGER TO MONITOR AND EDUCATE ON OXYGEN SATURATION DURING ADLS/IADLS, NOTIFY PHYSICIAN AND/OR THE RN CLINICAL NUT SORTER FOR PHYSICIAN NOTIFICATION AND IF O2 SATS BELOW PHYSICIAN ORDERED PARAMETERS AFTER 10 MIN OF REST PT/FACILITIES MANAGER TO IDENTIFY FALL RISK FACTORS; EDUCATE THE PATIENT/CAREGIVER ON WAYS TO REDUCE FALL RISK FACTORS AND ESTABLISH HOME EXERCISE PROGRAM TO MINIMIZE FALL RISK. MAY TEACH THE PATIENT FLOOR RECOVERY WHEN CLINICALLY APPROPRIATE [code = AGENCY MAY PERFORM A RESUMPTION OF CARE VISIT FOLLOWING ANY HOSPITAL ADMISSION. PT TO EVALUATE, OBSERVE / ASSESS, AND MONITOR, FACILITIES MANAGER TO OBSERVE AND MONITOR, PROVIDE SKILLED THERAPEUTIC INTERVENTION, ACTIVITY, EDUCATION, AND TRAINING TO ADDRESS; PT/FACILITIES MANAGER TO PROVIDE GAIT TRAINING FOR IMPROVED MOBILITY AND /OR TO NORMALIZE GAIT PATTERN NEUROMUSCULAR RE-EDUCATION / BALANCE / POSTURAL CONTROL (PT) THERAPEUTIC EXERCISES AND ESTABLISHING A HOME EXERCISE PROGRAM (PT/FACILITIES MANAGER) PT/FACILITIES MANAGER TO PROVIDE STAIR TRAINING SIT TO/FROM STAND TRANSFERS (PT/FACILITIES MANAGER) PT / FACILITIES MANAGER TO MONITOR AND EDUCATE ON OXYGEN SATURATION DURING ADLS/IADLS, NOTIFY PHYSICIAN AND/OR THE RN CLINICAL NUT SORTER FOR PHYSICIAN NOTIFICATION AND IF O2 SATS BELOW PHYSICIAN ORDERED PARAMETERS AFTER 10 MIN OF REST PT/FACILITIES MANAGER TO IDENTIFY FALL RISK FACTORS; EDUCATE THE PATIENT/CAREGIVER ON WAYS TO REDUCE FALL RISK FACTORS AND ESTABLISH HOME EXERCISE PROGRAM TO MINIMIZE FALL RISK. MAY TEACH THE PATIENT FLOOR RECOVERY WHEN CLINICALLY APPROPRIATE] Goal 2025-05-06 Patient Goal - TO GET STRONG ER Goal Patient Goal - TO GET STRONG [...] VERBALIZE/DEMONSTRATE UNDERSTANDING OF MEASURES TO MANAGE ALTERED CARDIOVASCULAR STATUS BY 60 DAYS Goal Provider Goal - PATIENT / CAREGIVER WILL VERBALIZE/DEMONSTRATE UNDERSTANDING OF MEASURES TO MANAGE ALTERED NEUROLOGICAL STATUS BY 60 DAYS Goal Provider Goal - PATIENT / CAREGIVER WILL VERBALIZE/DEMONSTRATE CARE AND SELF-MANAGEMENT OF CVA TO MINIMIZE COMPLICATIONS AND AVOID HOSPITALIZATION BY END OF EPISODE. Goal Provider Goal - PATIENT/CAREGIVER WILL VERBALIZE/DEMONSTRATE UNDERSTANDING OF FALL RISK FACTORS AND IMPLEMENT STRATEGIES TO MINIMIZE FALL RISK. PATIENT/CAREGIVER WILL VERBALIZE/DEMONSTRATE AN ABILITY TO ADHERE TO FALL REDUCTION SELF-MANAGEMENT AND LIFE-STYLE CHANGES BY 60 DAYS Goal Provider Goal - Goal Provider Goal - Goal Provider Goal - Goal Provider Goal - OT STG: PATIENT WILL DEMONSTRATE IMPROVED ABILITY TO PERFORM SPONGE BATHING TO REDUCE CAREGIVER BURDEN FROM MODERATE A TO SBA WITHIN 6 WEEKS OT LTG: PATIENT WILL DEMONSTRATE IMPROVED ABILITY TO PERFORM SPONGE BATHING TO REDUCE CAREGIVER BURDEN FROM MODERATE A TO INDEPENDENT WITHIN 8 WEEKS OT STG: PATIENT WILL DEMONSTRATE IMPROVED ABILITY TO PERFORM TOILET HYGIENE CLOTHING ADJUSTMENT TO REDUCE THE RISK OF DEVELOPING A UTI FROM MINIMAL A TO SBA WITHIN 4 WEEKS OT LTG: PATIENT WILL DEMONSTRATE IMPROVED ABILITY TO PERFORM TOILET HYGIENE CLOTHING ADJUSTMENT TO REDUCE THE RISK OF DEVELOPING A UTI FROM MINIMAL A TO INDEPENDENT WITHIN 6 WEEKS OT STG: PATIENT WILL DEMONSTRATE IMPROVED ABILITY TO PERFORM LOWER BODY DRESSING TO REDUCE CAREGIVER BURDEN FROM MINIMAL A TO SBA WITHIN 4 WEEKS OT LTG: PATIENT WILL DEMONSTRATE IMPROVED ABILITY TO PERFORM LOWER BODY DRESSING TO REDUCE CAREGIVER BURDEN FROM MINIMAL A TO INDEPENDENT WITHIN 6 WEEKS OT LTG: PATIENT WILL DEMONSTRATE IMPROVEMENT IN MODIFIED PREMA INDEX SCORE FROM 78 TO 98 INDICATING DECREASED DEPENDENCY ON CAREGIVER ASSISTANCE WITH ACTIVITIES OF DAILY LIVING WITHIN 8 WEEKS OT STG: PATIENT WILL DEMONSTRATE IMPROVED ABILITY TO PERFORM TOILET TRANSFERS TO REDUCE FALL RISK AND RISK OF INCONTINENCE AND UTI DEVELOPMENT FROM MINIMAL A TO SBA WITHIN 4 WEEKS OT LTG: PATIENT WILL DEMONSTRATE IMPROVED ABILITY TO PERFORM TOILET TRANSFERS TO REDUCE FALL RISK AND RISK OF INCONTINENCE AND UTI DEVELOPMENT FROM MINIMAL A TO INDEPENDENT WITHIN 6 WEEKS OT STG PATIENT WILL BE ABLE TO SAFELY RETRIEVE AND TRANSPORT ADL ITEMS FROM MINIMAL A TO SBA USING AD IN ORDER TO IMPROVE SELF CARE PERFORMANCE WITHIN 6 WEEKS OT LTG: PATIENT WILL BE ABLE TO SAFELY RETRIEVE AND TRANSPORT ADL ITEMS FROM MINIMAL A TO INDEPENDENCE USING AD IN ORDER TO IMPROVE SELF CARE PERFORMANCE WITHIN 8 WEEKS OT STG: PATIENT WILL PERFORM HIS BUE STRENGTHENING HEP FROM DEPENDENT TO INDEPENDENT WITHIN 4 OT LTG: PATIENT WILL DEMONSTRATE IMPROVED BUE STRENGTH FROM 3+/5 TO 4/5 FOR IMPROVED PARTICIPATION IN ADLS EVIDENCED BY IMPROVED FXL TRANSFERS WITHIN 8 WEEKS OT STG: PATIENT WILL DEMONSTRATE IMPROVED POSTURAL CONTROL AND DECREASED FALL RISK EVIDENCED BY AN IMPROVEMENT IN FUNCTIONAL REACH SCORE FROM 6 IN TO 9 IN TO IMPROVE SELF CARE PERFORMANCE WITHIN 6 WEEKS. OT LTG: PATIENT WILL DEMONSTRATE IMPROVED POSTURAL CONTROL AND DECREASED FALL RISK EVIDENCED BY AN IMPROVEMENT IN FUNCTIONAL REACH SCORE FROM 6 IN TO 11 IN TO IMPROVE SELF CARE PERFORMANCE WITHIN 8 WEEKS. OT GOAL: PATIENT/CAREGIVER WILL BE VERBALIZE UNDERSTANDING OF A CVA, SIGNS/SYMPTOMS TO REPORT, WELL SELF-MANAGEMENT AND LIFE-STYLE CHANGES BY END OF EPISODE. Goal Provider Goal - ST STG: PT WILL RETURN DEMO VOCAL ADDUCTION EXERCISES TO IMPROVE SPEECH LOUDNESS W MIN CUES WITHIN [address] LTG: PT WILL DEMONSTRATE IMPROVED BREATH SUPPORT FOR SPEECH EVIDENT BY IMPROVED MAX PHONSTION TIME FRO, 5 TO 9 [address] LTG: PATIENT HAVE IMPROVED BREATH CONTROL TO COMMUNICATE EFFECTIVELY EVIDENCED BY DECIBEL READING FROM 60DB TO 66DB WITH STRUCTURED SENTENCE PRODUCTION WITHIN [address] STG: PT WILL GENERATE FLUENT SENTENCE USING GIVEN WORD FROM 25% TO 60% TRIALS W MOD CUES WITHIN [address] STG: PT WILL RETURN DEMO CIRCUMLOCUTION, SYNONYMS AND GESTURES W MOD CUES WITHIN 4 WEEKS TO IMPROVE WORD RETRIEVAL ST LTG: PATIENT WILL IMPROVE THOUGH ORGANIZATION BY GENERATING 8 CONCRETE [employer]ERS (INCREASED FRO, 4) WITHIN 1 MIN IN 3/[address] LTG: CAREGIVER WILL BE EXPRESS COMPLEX THOUGHTS/IDEAS/PREFERENCES AT SENTENCE LEVEL FROM MILD-MOD TO MINIMAL IMPAIRMENT WITHIN [address] LTG: PATIENT/CAREGIVER WILL BE VERBALIZE UNDERSTANDING OF A CVA, SIGNS/SYMPTOMS TO REPORT, WELL SELF-MANAGEMENT AND LIFE-STYLE CHANGES BY END OF EPISODE ST LTG: PATIENT/CAREGIVER WILL DEMONSTRATE ADHERENCE TO FALL REDUCTION SELF-MANAGEMENT AND REDUCING FALL RISK FACTORS TO MINIMIZE FALL RISK BY END OF EPISODE ST LTG: PATIENT WILL DEMONSTRATE UNDERSTANDING OF PAIN MANAGEMENT TECHNIQUES EVIDENCED BY REDUCED PAIN BY END OF CERT Goal Provider Goal - PT LTG: PATIENT WILL DEMONSTRATE IMPROVED GAIT WITH 4WW FROM CGA TO INDEPENDENT WITHIN 8 WEEKS PT LTG: PATIENT WILL DEMONSTRATE INCREASED GAIT DISTANCE FROM 30 FEET TO 400 FEET WITHIN 8 WEEKS PT LTG: PATIENT WILL DEMONSTRATE REDUCED FALL RISK EVIDENCED BY TUG TEST (CUT SCORE >11 SECONDS INDICATES INCREASED FALL RISK) IMPROVING FROM UNABLE TO 20 SEC WITHIN 8 WEEKS PT STG: PATIENT WILL BE INDEPENDENT AND COMPLIANT WITH HEP WITHIN 4 WEEKS PT LTG: PATIENT WILL DEMONSTRATE INCREASED FUNCTIONAL MOBILITY BY EVIDENCE OF INCREASED LE MMT FROM 3+/5 TO 4+/5 WITHIN 8 WEEKS PT LTG: PATIENT WILL ASCEND/DESCEND FRONT STEPS IN ORDER TO SAFELY ENTER/EXIT THE HOME FROM MIN A TO INDEPENDENT WITHIN 8 WEEKS PT LTG: PATIENT WILL DEMONSTRATE IMPROVED ABILITY TO PERFORM SIT TO/FROM STAND TRANSFERS TO REDUCE THE RISK OF SKIN BREAKDOWN AND REDUCE FALL RISK FROM CGA TO INDEPENDENT WITHIN 8 WEEKS PT LTG: PATIENT WILL DEMONSTRATE INCREASED SAFETY WITH TRANSFERS BY EVIDENCE OF INCREASED 5X SIT TO STAND FROM 41 SEC TO 20 SEC WITHIN 8 WEEKS PT LTG: PATIENT WILL MAINTAIN OXYGEN SATURATION WITHIN PHYSICIAN ORDERED PARAMETERS THROUGHOUT EPISODE OF CARE. PT LTG: PATIENT/CAREGIVER WILL DEMONSTRATE ADHERENCE TO FALL REDUCTION SELF-MANAGEMENT AND REDUCING FALL RISK FACTORS TO MINIMIZE FALL RISK BY END OF EPISODE Encounters Start Date/Time End Date/Time Encounter Type Admission Type Attending [facility] Care Department Encounter ID Discharge Date Discharge Status Discharge Condition Discharge Reason Percent Goals Met 2025-03-11 00:00:00 2025-05-09 00:00:00 Outpatient TAHMINA MORALES [facility] [id number]
[2025-05-10] VITALS (14 sets, daily range): BP systolic 134–182; BP diastolic 85–105; PULSE 64–96; RESP 12–22; TEMP 36.6–36.8; O2SAT 96–100; BMI 19.2
--- NOTE | 2025-05-10 10:37 | CT_ITS ---
FINAL REPORT TECHNIQUE: Thin section axial images are obtained through the abdomen and pelvis after intravenous contrast. Reconstruction images were obtained from the axial data. Exam was performed using dose reduction techniques. CLINICAL HISTORY: abd discomfort FINDINGS: LIVER: Homogeneous. No focal lesion. GALLBLADDER/BILIARY SYSTEM: Gallbladder is present. No gallstones. No biliary dilatation. SPLEEN: Unremarkable. PANCREAS: Unremarkable. ADRENALS: Unremarkable. KIDNEYS/URETERS/BLADDER: There is a nonobstructing left renal stone. There is no hydronephrosis or renal mass. Unremarkable urinary bladder. GI TRACT: No small bowel obstruction or dilatation. Normal appendix. No acute colon abnormality. PELVIC ORGANS: Unremarkable for age. LYMPH NODES/RETROPERITONEUM/MESENTERY: No lymphadenopathy. No abdominal aortic aneurysm. ABDOMINAL WALL: The abdominal wall is intact. FREE FLUID: No ascites. BONES: There are L2 and L4 fractures. No other fracture is identified. IMPRESSION: No evidence of solid organ or GI tract injury. L2 and L4 fractures. Please see CT report of the lumbar spine. Nonobstructing left renal stone. Reviewed, Interpreted and Dictated by Lakshmi Castañeda MD Transcribed by Mareyllen Stafford Authenticated and [facility]
--- NOTE | 2025-05-10 10:37 | CT_ITS ---
FINAL REPORT TECHNIQUE: Thin section axial images were obtained from the thoracic inlet through the upper abdomen after intravenous contrast injection. Reconstruction images were obtained from the axial data. Exam was performed using dose reduction technique. CLINICAL HISTORY: shortness of breath COMPARISON: 06/22/2024 FINDINGS: There is no axillary lymphadenopathy. There are multiple mildly prominent mediastinal lymph nodes. For example, a precarinal lymph node is seen measuring 17 mm which is unchanged. There is no hilar lymphadenopathy. There is no pleural or pericardial effusion. Heart is mildly enlarged. There are bilateral lower lung predominant ground glass opacities which could represent pulmonary edema or pneumonia. There is no pneumothorax. There are fractures of the right 8th, 9th, 10th and 11th ribs. There is also a fracture of T9 with 75-50% loss of vertebral body height which is new from prior exam. IMPRESSION: Bilateral, basilar predominant ground glass opacities which could represent pulmonary edema or less likely, pneumonia. Multiple right rib fractures. No pneumothorax. T9 fracture, new from prior exam. Reviewed, Interpreted and Dictated by Lakshmi Castañeda MD Transcribed by Maryellen Stafford Authenticated and [facility]
--- NOTE | 2025-05-10 10:37 | CT_ITS ---
FINAL REPORT TECHNIQUE: Thin section axial images were obtained through the lumbar spine without contrast. Multiplanar reconstruction images were obtained from the axial data. Exam was performed using dose reduction technique per the ALARA principle. CLINICAL HISTORY: lumbar pain after fall COMPARISON: None FINDINGS: Vertebral bodies, age indeterminant are present, however, new since the prior lumbar spine exam of 08/26/2023. At the L2 level there is involvement of both the superior and inferior endplates, with 25% loss of vertebral body height centrally. At the L4 level, there is at least 75% loss of vertebral body height centrally. Multilevel degenerative disc disease is present, with canal stenosis and neural foraminal narrowing at every level in the lumbar spine. Evaluate of the soft tissues is limited due to technique. No gross paraspinal abnormality. IMPRESSION: Age indeterminant fractures of the L2 and L4 vertebral bodies, new since the prior lumbar spine exam of 09/15/2023. At the L2 level, there is involvement of the superior and inferior endplates with 25% loss of height centrally. At the L4 level, there is at least 75% loss of height centrally. Multilevel canal and neuroforaminal narrowing are present as well. Consider MRI of the lumbar spine for further evaluation. Reviewed, Interpreted and Dictated by Lakshmi Castañeda MD Transcribed by Sydni Hung Authenticated and [facility]
--- NOTE | 2025-05-10 10:42 | ED_ITS ---
<Statement entered by Diogo Luke MD - 05/10/25 18:33> Diogo Luke MD: I was consulted by the CHELO, and we discussed the complexity of the problems being addressed. I approve the treatment and management plan for this patient's care in the emergency department, thus performing a substantive portion of the medical decision making. Discharge Plan Disposition Chief Complaint: PAIN Prescriptions Prescriptions: No Action albuterol sulfate [Ventolin HFA] 90 mcg/actuation HFA aerosol inhaler 2 inh inhalation Q6H PRN (Reason: shortness of breath or wheezing) 90 Days Qty: 18 3RF atorvastatin [Lipitor] 80 mg tablet 80 mg PO HS mycophenolate mofetil 500 mg tablet 1,000 mg PO BID Jardiance 10 mg tablet 10 mg PO DAILY Qty: 30 2RF aspirin [Adult Low Dose Aspirin] 81 mg tablet,delayed release (DR/EC) 81 mg PO DAILY levothyroxine 25 mcg capsule 25 mcg PO DAILY mycophenolate mofetil 250 mg capsule 500 mg PO BID 30 Days Qty: 120 5RF finasteride 5 mg tablet 5 mg PO DAILY Qty: 90 1RF escitalopram oxalate [Lexapro] 10 mg tablet 10 mg PO DAILY Qty: 90 1RF midodrine 10 mg tablet See Rx Instructions .ROUTE .COMPLEX Qty: 90 0RF Dose Instruction: TAKE 1 TABLET BY MOUTH THREE TIMES DAILY; DO NOT GIVE LAST DOSE OF DAY AFTER 6PM OR WITHIN 4 HRS OF BEDTIME. Rx Instructions: TAKE 1 TABLET BY MOUTH THREE TIMES DAILY; DO NOT GIVE LAST DOSE OF DAY AFTER 6PM OR WITHIN 4 HRS OF BEDTIME. fludrocortisone 0.1 mg tablet See Rx Instructions .ROUTE .COMPLEX Qty: 30 0RF Dose Instruction: Take 1 tablet by mouth once daily Rx Instructions: Take 1 tablet by mouth once daily ticagrelor 90 mg tablet See Rx Instructions .ROUTE .COMPLEX Qty: 60 0RF Dose Instruction: Take 1 tablet by mouth twice daily Rx Instructions: Take 1 tablet by mouth twice daily Referrals Follow up/Referrals: Guera Bermeo APRN [Primary Care Provider, Medical] - See instructions Print Language Print Language: Danish Discharge ED Provider: Diogo Luke General Adult HPI <Aylin Fall (ED), VENDING MACHINE REPAIRER - Last Filed: 05/10/25 14:11> General Chief complaint: PAIN Stated complaint: AO 04/17 Fall - pain in ribs & back, SOA Time Seen by Provider: 05/10/25 10:25 History of Present Illness HPI narrative: 75-year-old male presents to the ED today for complaint of a fall before . He has complaints of abdominal pain which he believes may be musculoskeletal. The way he complains is pain when he lifts up. He also complains of bilateral rib pain and bilateral low back pain. He says that when he fell he fell onto his right side and did not hit his head. He did not want to be evaluated at the time because he did not feel like the fall was significant. Patient had a CVA February 02 then a week later had another stroke. He did go to [facility] until February and then has been home with home health and PT and OT. They were doing an OT and PT yesterday and moving his legs and he was in so much pain that he decided that he needed to be seen. brings him in today for symptoms. Patient is alert and oriented x 4 Related Data Home Medications ?Medication ?Instructions ?Recorded ?Confirmed aspirin 81 mg tablet,delayed 81 mg PO DAILY heart heal th 04/18/20 04/11/25 release (Adult Low Dose Aspirin) levothyroxine 25 mcg capsule 25 mcg PO DAILY thyroid 0 11/21/22 04/11/25 atorvastatin 80 mg tablet (Lipitor) 80 mg PO HS 04/11/25 mycophenolate mofetil 500 mg tablet 1,000 mg PO BID 04/11/25 Previous Rx's ?Medication ?Instructions ?Recorded albuterol sulfate 90 mcg/actuation 2 inh inhalation Q6 H PRN shortness 11/12/23 aerosol inhaler (Ventolin HFA) of breath or wheezing 9 0 days #18 grams mycophenolate mofetil 250 mg 500 mg (2 x 250 mg) PO BI D 30 days 03/14/25 capsule #120 caps escitalopram oxalate 10 mg tablet 10 mg PO DAILY #90 t abs 04/04/25 (Lexapro) finasteride 5 mg tablet 5 mg PO DAILY #90 tabs 04/04 empagliflozin 10 mg tablet 10 mg PO DAILY #30 tabs 08/17 (Jardiance) midodrine 10 mg tablet See Rx Instructions .Route 1 06/28/24 .COMPLEX #90 tabs fludrocortisone 0.1 mg tablet See Rx Instructions .Rou te 05/06/25 .COMPLEX #30 tabs ticagrelor 90 mg tablet See Rx Instructions .Route 1 07/07/24 .COMPLEX #60 tabs Allergies Allergy/AdvReac Type Severity Reaction Status Date / Time No Known Allergies Allergy Verified 04/11/25 15:09 PFS <Aylin Fall (ED), VENDING MACHINE REPAIRER - Last Filed: 05/10/25 14:11> [facility] Disclaimer: The information contained in this section may have been updated after the patient was seen, as this information can be updated by other users. Medical History Immunosuppressed due to chemotherapy Immunosuppressed status Pulmonary arterial hypertension RVSP 35-40 Hilar lymphadenopathy ILD (interstitial lung disease) Rheumatoid arthritis Hypothyroid Atypical angina Hx-TIA (transient ischemic attack) Skin lesion of left ear Right maxillary sinusitis, chronic Dyspnea on exertion Carotid artery stenosis History of CVA (cerebrovascular accident) Mild left-sided weakness, residual dysarthria dysphagia, Evidence of subclinical lacunar or subcortical strokes. Cannot exclude vascular parkinsonism, expect from hydrocephalus. He does not have signs, symptoms suggestive of NPH. Plan is to continue to follow-up conservatively at this time. Diastolic dysfunction HLD (hyperlipidemia) CAD (coronary artery disease) DM2 (diabetes mellitus, type 2) Cerebrovascular accident Surgical History Hx of cardiac cath Family History Other Cancer Diabetes Stroke Social History Smoking Status: Never smoker alcohol intake: former substance use type: denies use current occupational status: other Travel in the last 8 weeks?: None household members: spouse housing: house marital status: service: No halfway: No current occupational exposures/hazards: No caffeine: Yes Have you lived/traveled outside US in past 30 days?: No Contact w/someone who lives/traveled outside US past 30 days?: No Exposure to someone with infectious disease in past 14 days?: No Do you have a fever (greater than 100.4 F or 38 C)?: No Have you tested positive for COVID-19?: No Exposed to someone with COVID-19 in past 14 days?: No Do you have a sore throat?: No Do you have a cough?: No Do you have any weakness?: No Do you have any diarrhea?: No Are you experiencing any unusual bleeding?: No Do you have any muscle aches/pain?: No Do you have any abdominal pain?: No Are you experiencing loss of taste or smell?: No Other Medical History Have you received the Flu Vaccine for this season: No Have you received the Pneumonia Vaccine: Yes <Aylin [facility] (ED), VENDING MACHINE REPAIRER - Last Filed: 05/10/25 14:11> ROS Obtained: Yes Systems reviewed as appropriate & no additional complaints except as documented Constitutional Constitutional: Reports as per HPI Physical Exam <Aylin [facility] (ED), VENDING MACHINE REPAIRER - Last Filed: 05/10/25 14:11> General General appearance: alert Head Head exam: atraumatic and normocephalic Eye Eye exam: Present PERRL and EOMI ENT ENT exam: Present normal oropharynx and mucous membranes moist Neck Neck exam: Present full ROM and trachea midline Chest Chest inspection: Present normal inspection and tenderness Respiratory Respiratory exam: Present wheezes (Scattered wheezes) Cardiovascular Cardiovascular exam: Present regular rate, normal rhythm, normal heart sounds, +S1 and +S2 Extremities Exam Extremities exam: Present normal inspection, full ROM and normal capillary refill Neurological Exam Neurological exam: Present alert and oriented X3 Skin Skin exam: Present warm and dry Medical Decision Making <Aylin [facility] (ED), VENDING MACHINE REPAIRER - Last Filed: 05/10/25 14:11> Medical Records Screening: Per USPSTF and CDC recommendations, given the prevalence of disease in our region, it is our hospital?s policy to screen for HIV and viral Hepatitis for all patients aged 18 and over and those with ongoing risk factors. Rickie Inquiry Pt receiving controlled substance: No Rickie was queried for this patient: No Vital Signs: 05/10/25 10:22 05/10/25 10:35 05/10/25 10:36 Temperature 97.9 F Temperature Source Oral Pulse Rate 73 74 Pulse Rate [Right] 96 H Respiratory Rate 16 Blood Pressure 136/99 H 182/104 H Blood Pressure [Right Arm] 134/105 H Blood Pressure Mean Blood Pressure Mean [Right Arm] 114 Blood Pressure Source [Right Arm] Automatic Cuff Blood Pressure Position [Right Arm] Supine 02 Sat by Pulse Oximetry 98 99 99 Oxygen Delivery Method Room Air 05/10/25 10:37 05/10/25 11:00 05/10/25 11:32 Temperature Temperature Source Pulse Rate 71 67 77 Pulse Rate [Right] Respiratory Rate 17 Blood Pressure 170/95 H 164/91 H 172/90 H Blood Pressure [Right Arm] Blood Pressure Mean 127 Blood Pressure Mean [Right Arm] Blood Pressure Source [Right Arm] Blood Pressure Position [Right Arm] 02 Sat by Pulse Oximetry 99 99 99 Oxygen Delivery Method 05/10/25 12:00 05/10/25 12:30 05/10/25 13:00 Temperature Temperature Source Pulse Rate 67 64 64 Pulse Rate [Right] Respiratory Rate 19 18 17 Blood Pressure 169/88 H 162/85 H 164/89 H Blood Pressure [Right Arm] Blood Pressure Mean 110 Blood Pressure Mean [Right Arm] Blood Pressure Source [Right Arm] Blood Pressure Position [Right Arm] 02 Sat by Pulse Oximetry 99 100 98 Oxygen Delivery Method 05/10/25 13:30 Temperature Temperature Source Pulse Rate 64 Pulse Rate [Right] Respiratory Rate 17 Blood Pressure 159/91 H Blood Pressure [Right Arm] Blood Pressure Mean 115 Blood Pressure Mean [Right Arm] Blood Pressure Source [Right Arm] Blood Pressure Position [Right Arm] 02 Sat by Pulse Oximetry 98 Oxygen Delivery Method Lab Data Lab Results 05/10/25 10:40: WBC 8.0, RBC 4.10 L, Hgb 11.8 L, Hct 37.6 L, MCV 91.7, MCH 28.8, MCHC 31.4 L, RDW 15.4, Plt Count 228, MPV 10.1, Neut % (Auto) 84.9 H, Lymph % (Auto) 7.6 L, [place] % (Auto) 6.2, Eos % (Auto) 0.7, Baso % (Auto) 0.4, Neut # (Auto) 6.8, Lymph # (Auto) 0.6 L, [place] # (Auto) 0.5, Eos # (Auto) 0.1, Baso # (Auto) 0.0, APTT 24.7, Sodium 141, Potassium 3.8, Chloride 105, Carbon Dioxide 27, Anion Gap 12.8, BUN 23 H, Creatinine 1.20, Estimated Creat Clear 46, Estimated GFR 59, Est GFR ( Amer) 72, Glucose 123 H, Calcium 9.7, Magnesium 2.0, Total Bilirubin 0.8, AST 36, ALT 34, Alkaline Phosphatase 182 H, Troponin I 0.02, NT-Pro-B Natriuret Pep 996 H, Total Protein 8.2, Albumin 4.4, G lobulin 3.8 H, Albumin/Globulin Ratio 1.2, Lipase 71, HCV Ab SETH w/Rflx PCR Qn Negative, HIV Ag/Ab Combo Qual Negative 05/10/25 12:26: Urine Color Yellow, Urine Appearance Clear, Urine pH 5.5, Ur Specific [place] 1.015, Urine Protein 1+ A, Urine Glucose (UA) 2+, Urine Ketones Negative, Urine Blood Trace-i, Urine Nitrate Negative, Urine Bilirubin Negative, Urine Urobilinogen 0.2, Ur Leukocyte Esterase Negative, Urine RBC None, Urine WBC Occasional, Ur Squamous Epith Cells Occasional, Urine Bacteria None 05/10/25 10:40 05/10/25 10:40 Orders (Tests/Meds): ED MEDICATIONS Generic Name Dose Route Start Last Admin Trade Name Freq PRN Reason Stop Dose Admin Sodium Chloride 10 ml 05/10/25 11:21 05/10/25 11:22 Sodium Chloride 0.9% 10ml Syr (Rad Only) IV 06/09/25 11:20 10 ml NEEDED PRN Administration Maintain IV Site Discontinued Medications Generic Name Dose Route Start Last Admin Trade Name Freq PRN Reason Stop Dose Admin Dexamethasone Sodium Phosphate 8 mg 05/10/25 10:40 05/10/25 11:04 Dexamethasone 4mg/Ml 1ml Vial IV 05/10/25 10:41 8 mg ONCE ONE Administration Iopamidol 75 ml 05/10/25 11:21 05/10/25 11:22 Iopamidol-370 (76%);100ml Bottle IV 05/10/25 11:22 75 ml ONCE ONE Administration Methocarbamol 1,000 mg 05/10/25 10:42 05/10/25 11:04 Methocarbamol 500mg Tablet PO 05/10/25 10:43 1,000 mg ONCE ONE Administration Morphine Sulfate 4 mg 05/10/25 10:40 05/10/25 11:04 Morphine 4mg/Ml Syringe IV 05/10/25 10:41 4 mg ONCE ONE Administration Morphine Sulfate 4 mg 05/10/25 13:09 05/10/25 13:33 Morphine 4mg/Ml Syringe IV 05/10/25 13:10 4 mg ONCE ONE Administration Ondansetron HCl 4 mg 05/10/25 10:40 05/10/25 11:04 Ondansetron 4mg/2ml Vial IV 05/10/25 10:41 4 mg ONCE ONE Administration ORDERS Category Date Time Status CT abdomen pelvis w con Stat Cat Scan 05/10/25 10:[address] chest w con Stat Cat Scan 05/10/25 10:[address] lumbar spine wo con Stat Cat Scan 05/10/25 10:37 Completed BNP [NT Pro Brain Natriuretic Pep.] Stat Lab 05/10/25 10:40 Completed CBC [Complete Blood Count Auto Diff] Stat Lab 05/10/25 10:40 Completed Comprehensive Metabolic Panel Stat Lab 05/10/25 10:40 Completed HIV Combo Stat Lab 05/10/25 10:40 Completed Hepatitis C Ab Qual. W/ RFX Stat Lab 05/10/25 10:40 Completed Lipase Stat Lab 05/10/25 10:40 Completed Magnesium Stat Lab 05/10/25 10:40 Completed PTT [Activated Partial Thrombo Time] Stat Lab 05/10/25 10:40 Completed Trop I [Troponin I] Stat Lab 05/10/25 10:40 Completed Urinalysis and Microscopic Stat Lab 05/10/25 12:26 Completed Medical Decision Narrative: patient is a 75-year-old male presenting to the emergency department for evaluation of several complaints including abdominal muscle pain, low back pain rib pain. Patient is hemodynamically stable and pale-appearing upon arrival, afebrile. Differential diagnosis includes multiple body aches due to fall, pneumonia, sepsis, ACS, among others. Workup will be conducted with hematologic labs, specific imaging. Initial inventions include crystalloid bolus, analgesics, antibiotics, etc.. Initial workup reviewed by sd hematologic labs are remarkable for Normal white count of 8, hemoglobin 11.8,, hematocrit 37.6, potassium 3.8 BUN was 23 creatinine 1.2 normal AST and ALT BNP was 996, troponin was 0.02. Patient's lumbar spine CT showed fractures of the L2 and L4 vertebral bodies, there is involvement of the superior and inferior endplates with 25% loss of height centrally. The chest CT showed bilateral basilar predominantly ground glass opacities which could be pulmonary edema or pneumonia more likely pneumonia. He also has multiple right rib fractures T9 fracture. The fractures are on the right 8th and 9th 10th and 11th ribs. CT of abdomen pelvis showed no abdominal pathology. Patient is stable at this time. He is afebrile. We did do incentive spirometer with him and he could not do up to 500. Dr. Luke was consulted with this patient. I talked to patient's and did not want [facility] but [facility] not [facility] beds. We consulted and I talked to Dr. Villela and they accepted to [facility]. <Diogo Luke MD - Last Filed: 05/10/25 10:55> Vital Signs: 05/10/25 10:22 05/10/25 10:35 05/10/25 10:36 Temperature 97.9 F Temperature Source Oral Pulse Rate 73 74 Pulse Rate [Right] 96 H Respiratory Rate 16 Blood Pressure 136/99 H 182/104 H Blood Pressure [Right Arm] 134/105 H Blood Pressure Mean Blood Pressure Mean [Right Arm] 114 Blood Pressure Source [Right Arm] Automatic Cuff Blood Pressure Position [Right Arm] Supine 02 Sat by Pulse Oximetry 98 99 99 Oxygen Delivery Method Room Air 05/10/25 10:37 05/10/25 11:00 05/10/25 11:32 Temperature Temperature Source Pulse Rate 71 67 77 Pulse Rate [Right] Respiratory Rate 17 Blood Pressure 170/95 H 164/91 H 172/90 H Blood Pressure [Right Arm] Blood Pressure Mean 127 Blood Pressure Mean [Right Arm] Blood Pressure Source [Right Arm] Blood Pressure Position [Right Arm] 02 Sat by Pulse Oximetry 99 99 99 Oxygen Delivery Method 05/10/25 12:00 05/10/25 12:30 05/10/25 13:00 Temperature Temperature Source Pulse Rate 67 64 64 Pulse Rate [Right] Respiratory Rate 19 18 17 Blood Pressure 169/88 H 162/85 H 164/89 H Blood Pressure [Right Arm] Blood Pressure Mean 110 Blood Pressure Mean [Right Arm] Blood Pressure Source [Right Arm] Blood Pressure Position [Right Arm] 02 Sat by Pulse Oximetry 99 100 98 Oxygen Delivery Method 05/10/25 13:30 Temperature Temperature Source Pulse Rate 64 Pulse Rate [Right] Respiratory Rate 17 Blood Pressure 159/91 H Blood Pressure [Right Arm] Blood Pressure Mean 115 Blood Pressure Mean [Right Arm] Blood Pressure Source [Right Arm] Blood Pressure Position [Right Arm] 02 Sat by Pulse Oximetry 98 Oxygen Delivery Method Lab Data Lab Results 05/10/25 10:40: WBC 8.0, RBC 4.10 L, Hgb 11.8 L, Hct 37.6 L, MCV 91.7, MCH 28.8, MCHC 31.4 L, RDW 15.4, Plt Count 228, MPV 10.1, Neut % (Auto) 84.9 H, Lymph % (Auto) 7.6 L, [place] % (Auto) 6.2, Eos % (Auto) 0.7, Baso % (Auto) 0.4, Neut # (Auto) 6.8, Lymph # (Auto) 0.6 L, [place] # (Auto) 0.5, Eos # (Auto) 0.1, Baso # (Auto) 0.0, APTT 24.7, Sodium 141, Potassium 3.8, Chloride 105, Carbon Dioxide 27, Anion Gap 12.8, BUN 23 H, Creatinine 1.20, Estimated Creat Clear 46, Estimated GFR 59, Est GFR ( Amer) 72, Glucose 123 H, Calcium 9.7, Magnesium 2.0, Total Bilirubin 0.8, AST 36, ALT 34, Alkaline Phosphatase 182 H, Troponin I 0.02, NT-Pro-B Natriuret Pep 996 H, Total Protein 8.2, Albumin 4.4, G lobulin 3.8 H, Albumin/Globulin Ratio 1.2, Lipase 71, HCV Ab ESTH w/Rflx PCR Qn Negative, HIV Ag/Ab Combo Qual Negative 05/10/25 12:26: Urine Color Yellow, Urine Appearance Clear, Urine pH 5.5, Ur Specific [place] 1.015, Urine Protein 1+ A, Urine Glucose (UA) 2+, Urine Ketones Negative, Urine Blood Trace-i, Urine Nitrate Negative, Urine Bilirubin Negative, Urine Urobilinogen 0.2, Ur Leukocyte Esterase Negative, Urine RBC None, Urine WBC Occasional, Ur Squamous Epith Cells Occasional, Urine Bacteria None Orders (Tests/Meds): ED MEDICATIONS Generic Name Dose Route Start Last Admin Trade Name Freq PRN Reason Stop Dose Admin Sodium Chloride 10 ml 05/10/25 11:21 05/10/25 11:22 Sodium Chloride 0.9% 10ml Syr (Rad Only) IV 06/09/25 11:20 10 ml NEEDED PRN Administration Maintain IV Site Discontinued Medications Generic Name Dose Route Start Last Admin Trade Name Clem PRN Reason Stop Dose Admin Dexamethasone Sodium Phosphate 8 mg 05/10/25 10:40 05/10/25 11:04 Dexamethasone 4mg/Ml 1ml Vial IV 05/10/25 10:41 8 mg ONCE ONE Administration Iopamidol 75 ml 05/10/25 11:21 05/10/25 11:22 Iopamidol-370 (76%);100ml Bottle IV 05/10/25 11:22 75 ml ONCE ONE Administration Methocarbamol 1,000 mg 05/10/25 10:42 05/10/25 11:04 Methocarbamol 500mg Tablet PO 05/10/25 10:43 1,000 mg ONCE ONE Administration Morphine Sulfate 4 mg 05/10/25 10:40 05/10/25 11:04 Morphine 4mg/Ml Syringe IV 05/10/25 10:41 4 mg ONCE ONE Administration Morphine Sulfate 4 mg 05/10/25 13:09 05/10/25 13:33 Morphine 4mg/Ml Syringe IV 05/10/25 13:10 4 mg ONCE ONE Administration Ondansetron HCl 4 mg 05/10/25 10:40 05/10/25 11:04 Ondansetron 4mg/2ml Vial IV 05/10/25 10:41 4 mg ONCE ONE Administration ORDERS Category Date Time Status CT abdomen pelvis w con Stat Cat Scan 05/10/25 10:[address] chest w con Stat Cat Scan 05/10/25 10:[address] lumbar spine wo con Stat Cat Scan 05/10/25 10:37 Completed BNP [NT Pro Brain Natriuretic Pep.] Stat Lab 05/10/25 10:40 Completed CBC [Complete Blood Count Auto Diff] Stat Lab 05/10/25 10:40 Completed Comprehensive Metabolic Panel Stat Lab 05/10/25 10:40 Completed HIV Combo Stat Lab 05/10/25 10:40 Completed Hepatitis C Ab Qual. W/ RFX Stat Lab 05/10/25 10:40 Completed Lipase Stat Lab 05/10/25 10:40 Completed Magnesium Stat Lab 05/10/25 10:40 Completed PTT [Activated Partial Thrombo Time] Stat Lab 05/10/25 10:40 Completed Trop I [Troponin I] Stat Lab 05/10/25 10:40 Completed Urinalysis and Microscopic Stat Lab 05/10/25 12:26 Completed ECG Data Tracing #1: I reviewed this ECG and interpreted as documented below: Normal sinus rhythm. No ST elevation or depression. QTc 445 Critical Care <Aylin Fall (ED), VENDING MACHINE REPAIRER - Last Filed: 05/10/25 14:11> Critical Care Time Critical Care Time: No
--- NOTE | 2025-05-10 10:51 | ECG_ITS ---
APPROVED REPORT Exam: Resting ECG HR:70 bpm ECG Measurements Heart Rate 70 AXES MA 177 P 30 QRSd 89 QRS -88 QT 424 T 14 QTc 445 Conclusion SINUS RHYTHM POSSIBLE RIGHT VENTRICULAR CONDUCTION DELAY [RSR (QR) IN V1/V2] LEFT ANTERIOR FASCICULAR BLOCK [QRS AXIS <= -45, QR IN I, RS IN II] POSSIBLE ANTERIOR MYOCARDIAL INFARCTION , PROBABLY OLD [30 ms Q WAVE IN V3/V4, OR R < 0.2 mV IN V4] ABNORMAL ECG UNCONFIRMED REPORT Normal sinus rhythm. No STEMI Electronically signed by : WILNER SHIPLEY, 05/11/2025 07:22:23
--- OUTSIDE RECORDS SUMMARY | 2025-05-10 10:55 | XMS_ITS | Clinical Summary ---
Author Organization [facility] Address [address] [place] [address] Care Team Providers Care Forming Process Worker Name Role Phone BermeoGuera clark Spencer TRAORE Primary Care Provider [phone] Allergies No known active allergies Medications atorvastatin (Lipitor) 80 MG tablet Take 1 tablet by mouth daily. 5 Active Breo Ellipta 100-25 MCG/ACT aerosol powder Inhale 1 puff as needed. As needed 4 Active furosemide (Lasix) 20 MG tablet Take 1 tablet by mouth daily. 5 Active metFORMIN (Glucophage) 1000 MG tablet Take 1 tablet by mouth 2 times a day with meals. Active potassium chloride CR (K-Tab) 20 MEQ ER tablet Take 1 tablet by mouth daily. 5 Active mycophenolate (Cellcept) 500 MG tabletIndication s:ILD (interstitial lung disease) (CMS/HCC),Pulmon ashish hypertension (CMS/HCC) Take 2 tablets by mouth 2 times a day. 120 tablet 2 5 Active Additional Information Patient taking differently:1,000 mg Oral 2 times daily,Per takes two 250mg tablets in the morning and at night, Reported on 03/07/2025 aspirin 81 MG EC tablet Take 1 tablet by mouth daily. Active escitalopram (Lexapro) 10 MG tablet Take 1 tablet by mouth daily. Active finasteride (Proscar) 5 MG tablet Take 1 tablet by mouth every evening. Do not crush, chew, or split. Active fludrocortisone (Florinef) 0.1 MG tablet Take 1 tablet by mouth daily. Active pantoprazole (ProtoNix) 20 MG EC tablet Take 1 tablet by mouth daily. Do not crush, chew, or split. Active ticagrelor (Brilinta) 90 MG tablet Take 1 tablet by mouth 2 times a day. Active Active Problems No known active problems Encounters Date Type Department Care Team Description 03/07/2025 2:30 PM EDT Pharmacist Visit [facility] [address] [place] [phone] Lucy Mcintosh, PharmD Cerebrovascular accident (CVA), unspecified mechanism (CMS/HCC) (Primary Dx) 03/07/2025 Travel 02/17/2025 Refill [facility] [address] [place] [phone] Davin De Leon, PharmD ILD (interstitial lung disease) (CMS/HCC); Pulmonary hypertension (CMS/HCC) 02/14/2025 Results Follow-Up [facility] Medicine Specialties [address], [address] [place] [phone] Jina Gonzalez MD 02/09/2025 10:45 AM EDT - 02/09/2025 11:59 PM EDT Hospital Encounter [facility] Radiology [address], [address] [place] [address] ILD (interstitial lung disease) (CMS/HCC) Discharge Disposition: Home or Self Care 02/09/2025 9:10 AM EDT Consult [facility] [address], [address] [place] [phone] Krupa Bates MD ILD (interstitial lung disease) (CMS/HCC) (Primary Dx); Muscle weakness; Pulmonary hypertension (CMS/HCC); Scl-70 antibody positive; Rheumatoid factor positive; Arthralgia, unspecified joint; Positive DHEERAJ (antinuclear antibody); Raynaud's disease without gangrene 02/09/2025 Telephone [facility]ties [address], [address] [place] [phone] Anderson Raya, PharmD 02/09/2025 Travel from [...] Description 05/12/2025 2:00 PM EST Office Visit [facility] [address] [place] [address] Lucas Londono MD [address], [place] [phone] 06/02/2025 1:00 PM EST Office Visit [facility] Stanley Rafael [address] [facility]. [address] [place] [address] Wander Rob MD [address] [place] [phone] Health Maintenance Due Date Last Done Comments [...] 60+ Years o r (1 - Risk 50-74 years 1-dose series) 01/26/2002 [id number] Vaccine (3 - 2024- season) 2025 04/12/2021, 08/02/2020 [facility]-Influenza Vaccine (#1) 01/24/202504/14, 03/29/2018 [facility]-Depression Screening 02/09/2026 025, 02/09/2025 [facility]-Hepatitis C Screening Completed 02/09/2025 HPV Vaccines (No Doses Required) Completed [facility]-HIB Vaccines Aged Out No longer e [...] AM EDT ILD (interstitial lung disease) (CMS/HCC) DOUBLE-STRANDED DNA (DSDNA) ANTIBODY, IGG BY IFA [...] AM EDT ILD (interstitial lung disease) (CMS/HCC) BALDERAS/CARRIER LOADER (BOUCHRA) ANTIBODY, IGG (SO) Routine 02/09/2025 11:55 AM EDT ILD (interstitial lung disease) (CMS/HCC) EXTRACTABLE NUCLEAR ANTIGEN ANTIBODIES (SSA 52, SSA 60, AND SSB) (SO) Routine 02/09/2025 11:55 AM EDT ILD (interstitial lung disease) (CMS/HCC) HEPATITIS B CORE TOTAL AB (IGG AND IGM) Routine 02/09/2025 11:55 AM EDT ILD (interstitial lung disease) (CMS/HCC) HC HBSAG Routine 02/09/2025 11:55 AM EDT ILD (interstitial [...] Pattern Homogeneou s(A) 02/12/2025 8:25 PM EDT [facility] ([facility]) DHEERAJ Titer 1:640(A) 02/12/2025 8:25 PM EDT [facility] ([facility]) Blood Venous blood specimen / Unknown Venipuncture / Unknown 02/09/2025 11:55 AM EDT 02/09/2025 11:55 AM EDT Narrative [facility] ([facility]) - 02/12/2025 8:25 PM EDT Performed By: [facility] [address] [place] [address] Horse Breaker: Anderson Pizarro MD, PhD CLIA Number: [id number] us Jina Gonzalez MD LAB BLOOD ORDERABLES Final Re sult [facility] [employer]) [address] [place] [address] * ENAII (02/09/2025 11:55 AM EDT) SSA-52 (RO52) (BOUCHRA) Antibody, IgG 3 0 - 40 AU/mL 02/12/2025 10:53 PM EDT [facility] ([facility]) SSA-60 (RO60) (BOUCHRA) Antibody, IgG 1 0 - 40 AU/mL 02/12/2025 10:53 PM EDT [facility] ([facility]) SSB (LA) (BOUCHRA) Antibody, IgG 9 0 - 40 AU/mL 02/12/2025 10:53 PM EDT [facility] ([facility]) Blood Venous blood specimen / Unknown Venipuncture / Unknown 02/09/2025 11:55 AM EDT 02/09/2025 11:55 AM EDT Narrative [facility] ([facility]) - 02/12/2025 10:53 PM EDT INTERPRETIVE INFORMATION: [...] (PSS) also have this antibody. Performed By: [facility] [address] [place] [address] Horse Breaker: Anderson Pizarro MD, PhD CLIA Number: [id number] us Jina Gonzalez MD LAB BLOOD ORDERABLES Final Re sult [facility]) [address] [place], [place] [id number] * ENAI (02/09/2025 11:55 AM EDT) Balderas/CARRIER LOADER (BOUCHRA) Ab, IgG 3 0 - 19 Units 02/10/2025 11:35 PM EDT [facility]) Blood Venous blood specimen / Unknown Venipuncture / Unknown 02/09/2025 11:55 AM EDT 02/09/2025 11:55 AM EDT Narrative [facility]) - 02/10/2025 11:35 PM EDT INTERPRETIVE INFORMATION: Balderas/CARRIER LOADER (BOUCHRA) Antibody, IgG 19 Units or Less ............. Negative 20 to 39 Units ............... Weak Positive 40 to 80 Units ............... Moderate Positive 81 Units or greater .......... Strong Positive Balderas/CARRIER LOADER antibodies are frequently seen in patients with mixed connective tissue disease (MCTD) and are also associated with other systemic autoimmune rheumatic diseases (SARDs) such as systemic lupus erythematosus (SLE), systemic sclerosis, and myositis. Antibodies targeting the Balderas/CARRIER LOADER antigenic complex also recognize Balderas antigens, therefore, the Balderas antibody response must be considered when interpreting these results. Performed By: [facility] [address] [place] [address] Horse Breaker: Anderson Pizarro MD, PhD CLIA Number: [id number] Jina Gonzalez MD LAB BLOOD ORDERABLES Final Re sult [facility] ([facility]) [address] [place] [id number] * Hepatitis C Antibody (02/09/2025 11:55 AM EDT) [facility] Hepatitis C Antibody Negative Negative 02/09/2025 2:48 PM EDT [facility] Blood Venous blood specimen / Unknown Venipuncture / Unknown 02/09/2025 11:55 AM EDT 02/09/2025 11:55 AM EDT Jina Gonzalez MD LAB BLOOD ORDERABLES Final Re sult [facility] [address] [place] [address] * Cyclic Citrul Peptide Antibody IgG (02/09/2025 11:55 AM EDT) [facility] Cyclic Citrul Peptide Antibody IgG <5.0 <=5.0 U/mL 02/09/2025 3:10 PM EDT [facility] Blood Venous blood specimen / Unknown Venipuncture / Unknown 02/09/2025 11:55 AM EDT 02/09/2025 11:55 AM EDT us Jina Gonzalez MD LAB BLOOD ORDERABLES Final Re sult [facility] [address] [place] [address] * Anti-scleroderma antibody (02/09/2025 11:55 AM EDT) SCLERODERMA (SCL-70) (BOUCHRA) ANTIBODY, IGG 39 0 - 40 AU/mL 02/12/2025 10:53 PM EDT [facility] ([employer]) Blood Venous blood specimen / Unknown Venipuncture / Unknown 02/09/2025 11:55 AM EDT 02/09/2025 11:55 AM EDT Narrative [facility] ([facility]) - 02/12/2025 10:53 PM EDT [...] testing for centromere, RNA polymerase III and U3-CARRIER LOADER, PM/Scl, or Th/To antibodies. Performed By: [facility] [address] [place] [address] Horse Breaker: Anderson Pizarro MD, PhD CLIA Number: [id number] Jina Gonzalez MD LAB BLOOD ORDERABLES Final Re sult [facility]) [address] [place] [address] * Anti-DNA antibody, double-stranded (02/09/2025 11:55 AM EDT) Double-Strande d DNA (dsDNA) Ab IgG IFA <1:10 <1:10 02/12/2025 11:01 PM EDT [facility] ([facility]) Blood Venous blood specimen / Unknown Venipuncture / Unknown 02/09/2025 11:55 AM EDT 02/09/2025 11:55 AM EDT Narrative [facility]) - 02/12/2025 11:01 PM EDT INTERPRETIVE INFORMATION: [...] recommendations for testing may be found at [email or web address]. Performed By: [facility] [address] [place] [address] Horse Breaker: Anderson Pizarro MD, PhD CLIA Number: [id number] us Jina Gonzalez MD LAB BLOOD ORDERABLES Final Re sult [facility]) [address] [place] [address] * Hepatitis B Core Total Antibody IgG,IgM (02/09/2025 11:55 AM EDT) Pathologist [facility] Hepatitis B Core Total Antibody IgG,IgM Negative Negative 02/09/2025 2:57 PM EDT [facility] Blood Venous blood specimen / Unknown Venipuncture / Unknown 02/09/2025 11:55 AM EDT 02/09/2025 11:55 AM EDT us Jina Gonzalez MD LAB BLOOD ORDERABLES Final Re sult Performing Organization Address City/[facility]/ZIP Co de Phone Number [facility] [address] [place] [address] * Quantiferon TB Gold Plus (02/09/2025 11:55 AM EDT) [facility] Quantiferon TB Gold Plus Result Negative Negative 02/10/2025 6:03 PM EDT [facility] TB Nill Value 0.0429 IU/mL 02/10/2025 6:03 PM EDT [facility] TB Antigen 1 0.0017 IU/mL 02/10/2025 6:03 PM EDT [facility] TB Antigen 2 -0.0098 IU/mL 02/10/2025 6:03 PM EDT [facility] TB Mitogen 9.8471 IU/mL 02/10/2025 6:03 PM EDT [facility] Blood Venous blood specimen / Unknown Venipuncture / Unknown 02/09/2025 11:55 AM EDT 02/09/2025 11:55 AM EDT Narrative [facility] - 02/10/2025 6:03 PM EDT Responses to the Mitogen positive control and occasionally to TB antigen can be above the assay range. For calculation purposes: IFN-gamma values > 10 IU/mL are handled as 10 IU/mL. us Jina Gonzalez MD LAB BLOOD ORDERABLES Final Re sult Performing Organization Address City/[facility]/ZIP Co de Phone Number [facility] [address] [place] [address] * Hepatitis B Surface Antigen (02/09/2025 11:55 AM EDT) Pathologist [facility] Hepatitis B Surf Antigen Negative Negative 02/09/2025 2:57 PM EDT [facility] Blood Venous blood specimen / Unknown Venipuncture / Unknown 02/09/2025 11:55 AM EDT 02/09/2025 11:55 AM EDT us Jina Gonzalez MD LAB BLOOD ORDERABLES Final Re sult Performing Organization Address [facility] [place] [place] [address] * Rheumatoid Factor, Plasma (02/09/2025 11:55 AM EDT) [facility] Rheumatoid Factor, Plasma <10 <14 IU/mL 02/09/2025 2:17 PM EDT [facility] Blood Venous blood specimen / Unknown Venipuncture / Unknown 02/09/2025 11:55 AM EDT 02/09/2025 11:55 AM EDT us Jina Gonzalez MD LAB BLOOD ORDERABLES Final Re sult Performing Organization Address [facility] [place] [address] * C3 complement (02/09/2025 11:55 AM EDT) [facility] C3 Complement 127 84 - 166 mg/dL 02/09/2025 2:30 PM EDT [facility] Blood Venous blood specimen / Unknown Venipuncture / Unknown 02/09/2025 11:55 AM EDT 02/09/2025 11:55 AM EDT us Jina Gonzalez MD LAB BLOOD ORDERABLES Final Re sult Performing Organization Address City/[facility]/ZIP Co de Phone Number [facility] [address] [place] [address] * C4 complement (02/09/2025 11:55 AM EDT) Pathologist [facility] C4 Complement 27 13 - 36 mg/dL 02/09/2025 2:30 PM EDT [facility] Blood Venous blood specimen / Unknown Venipuncture / Unknown 02/09/2025 11:55 AM EDT 02/09/2025 11:55 AM EDT Jian Gonzalez MD LAB BLOOD ORDERABLES Final Re sult Performing Organization Address [facility] Co de Phone Number [facility] [address] [place] [address] * C-reactive protein (02/09/2025 11:55 AM EDT) [facility] CRP, Plasma <3.0 <=8.0 mg/L 02/09/2025 2:17 PM EDT [facility] Blood Venous blood specimen / Unknown Venipuncture / Unknown 02/09/2025 11:55 AM EDT 02/09/2025 11:55 AM EDT Narrative [facility] - 02/09/2025 2:17 PM EDT This CRP test is appropriate for assessment of infection, systemic inflammation and/or tissue injury. To assess cardiovascular disease risk order high sensitivity CRP (CRPH). us Jina Gonzalez MD LAB BLOOD ORDERABLES Final Re sult Performing Organization Address [facility] Co de Phone Number [address] [address] * (ABNORMAL) ANTI NUCLEAR AB (02/09/2025 11:55 AM EDT) [facility] DHEERAJ INTERPRETIVE COMMENT See Note 02/12/2025 8:25 PM EDT [facility] ([facility]) Anti Nuc Ab Screen Detected( H) <1:80 02/12/2025 8:25 PM EDT [facility] ([facility]) Blood Venous blood specimen / Unknown Venipuncture / Unknown 02/09/2025 11:55 AM EDT 02/09/2025 11:55 AM EDT Narrative [facility]) - 02/12/2025 8:25 PM EDT Clinical Interpretation: [...] not necessarily rule out SARD. Performed By: [facility] [address] [place] [address] Horse Breaker: Anderson Pizarro MD, PhD CLIA Number: [id number] us Jina Gonzalez MD LAB BLOOD ORDERABLES Final Re sult [facility]) [address] [place] [address] * (ABNORMAL) Thyroid Stimulating Hormone, Plasma (02/09/2025 11:55 AM EDT) Pathologist [facility] Thyroid Stimulating Hormone, Plasma 5.94(H) 0.40 - 4.20 uIU/mL 02/09/2025 2:17 PM EDT [facility] Blood Venous blood specimen / Unknown Venipuncture / Unknown 02/09/2025 11:55 AM EDT 02/09/2025 11:55 AM EDT Jina Gonzalez MD LAB BLOOD ORDERABLES Final Re sult Performing Organization Address City/[facility]/ZIP Co de Phone Number [facility] [address] [place] [address] * Urine [place] Panel (02/09/2025 11:44 AM EDT) Pathologist [facility] Extra Reflex urine culture not indicated 02/09/2025 8:01 PM EDT [facility] Comment: Previously prelim verified as Specimen [...] MD LAB URINE ORDERABLES Final Re sult [facility] [address] [place] [address] * Protein, Random, Urine with Creatinine (02/09/2025 11:44 AM EDT) Pathologist [facility] Protein, Urine 47 mg/dL 02/09/2025 2:17 PM EDT [facility] Creatinine, Urine 349 mg/dL 02/09/2025 2:17 PM EDT [facility] Protein/Creatin ine Ratio 0.1 mg/mg Creat 02/09/2025 2:17 PM EDT [facility] Urine Urine specimen obtained by clean catch procedure / Unknown Non-blood Collection / Unknown 02/09/2025 11:44 AM EDT 02/09/2025 11:44 AM EDT us Jina Gonzalez MD LAB URINE ORDERABLES Final Re sult [facility] [address] [place] [address] * (ABNORMAL) Urinalysis with reflex microscopic (Culture NOT Included) (02/09/2025 11:44 AM EDT) Color, Urine Dark Yellow LAB URINALYSIS - AUTOMATED METHOD 02/09/2025 2:07 PM EDT [facility] Clarity, Urine Clear LAB URINALYSIS - AUTOMATED METHOD 02/09/2025 2:07 PM EDT [facility] Spec [place], Urine >1.030(H) 1.005 - 1.030 LAB URINALYSIS - AUTOMATED METHOD 02/09/2025 2:07 PM EDT [facility] pH, Urine 5.5 5.0 - 8.0 LAB URINALYSIS - AUTOMATED METHOD 02/09/2025 2:07 PM EDT [facility] Protein, Urine 30(A) Negative mg/dL LAB URINALYSIS - AUTOMATED METHOD 02/09/2025 2:07 PM EDT [facility] Glucose, Urine Negative Negative mg/dL LAB URINALYSIS - AUTOMATED METHOD 02/09/2025 2:07 PM EDT [facility] Ketones, Urine 15(A) Negative mg/dL LAB URINALYSIS - AUTOMATED METHOD 02/09/2025 2:07 PM EDT [facility] Blood, Urine Negative Negative LAB URINALYSIS - AUTOMATED METHOD 02/09/2025 2:07 PM EDT [facility] Bilirubin, Urine Negative Negative LAB URINALYSIS - AUTOMATED METHOD 02/09/2025 2:07 PM EDT [facility] Urobilinogen, Urine 1.0 0.2 to 1.0 mg/dL LAB URINALYSIS - AUTOMATED METHOD 02/09/2025 2:07 PM EDT [facility] Leukocytes, Urine Negative Negative LAB URINALYSIS - AUTOMATED METHOD 02/09/2025 2:07 PM EDT [facility] Nitrite, Urine Negative Negative LAB URINALYSIS - AUTOMATED METHOD 02/09/2025 2:07 PM EDT [facility] Urine Urine specimen obtained by clean catch procedure / Unknown Non-blood Collection / Unknown 02/09/2025 11:44 AM EDT 02/09/2025 11:44 AM EDT us Jina Gonzalez MD LAB URINE ORDERABLES Final Re sult [facility] [address] [place] [address] * XR Hips Bilateral 2 Views (02/09/2025 [...] Blayne Zhang MD on 02/09/2025 12:08 PM Jina Gonzalez MD IMG XR PROCEDURES Final Resul t from Last [address] [facility] Care Teams Forming Process Worker Relationship Specialty Start Date End Date Guera Bermeo APRN [address] [place] [address] PCP - General 02/09/25
--- OUTSIDE RECORDS SUMMARY | 2025-05-10 10:55 | XMS_ITS | Encounter Summary ---
Author Organization [facility] Address [address] [place] [address] Care Team Providers Care Physician [facility]gent [facility] Name Role Phone Guera Bermeo APRN Primary Care Provider [phone] Encounter Details Date Type Department Care Team (Latest Contact Info) Description 03/17/2025 Travel Social History Tobacco Use Types Packs/Day Years Used Date Smoking Tobacco: Never Smokeless Tobacco: Current Chew Alcohol Use Standard Drinks/Week Comments Never 0 (1 standard drink = 0.6 oz pur e alcohol) [facility] Utilities Answer Date Recorded In the past 12 months has [employer], gas, oil, or water company threatened [...] GED or equivalent No 02/17/2025 Preferred Language Nauruan 02/17/2025 PHQ-2 Answer Date Recorded Patient Health [...] Description 06/09/2025 1:30 PM EST Office Visit [facility] [address] [place] [address] [address] [place] [phone] Fanny Sadler, PULLEY MAINTAINER [address] [facility] [address] [address] 03/16/2026 11:00 AM EDT Appointment [facility] [address] [facility] [address] [place] [address] 03/16/2026 1:00 PM EDT Office Visit [facility] [address] [facility] [address] [place] [phone] Jeffery Phillips PA-C [address] [facility] [address] [place] [address] documented as of this encounter Visit Diagnoses Not on filedocumented in this encounter Care Teams Physician Locums Urgent Care Relationship Specialty Start Date End Date Guera Bermeo APRN [facility] [address] [address] PCP - General Internal Medicine 02/03/25 documented as of this encounter
[2025-05-10 10:56] LABS: Hematocrit 37.6 % (42.0-52.0); Hemoglobin 11.8 g/dL (14.1-18.0); Immature Granulocytes % 0.2 %; Mean Corpuscular HGB Conc 31.4 g/dL (31.8-35.4); Mean Corpuscular Hemoglobin 28.8 pg (27.0-31.2); Mean Corpuscular Volume 91.7 fl (80-94); Nucleated Red Blood Cells % 0 %; Platelet Count 228 K/mm3 (142-424); Red Blood Count 4.10 M/mm3 (4.60-6.20); Red Cell Distribution Width-SD 51.8 fL; White Blood Count 8.0 K/mm3 (4.8-10.8)
--- OUTSIDE RECORDS SUMMARY | 2025-05-10 10:56 | XMS_ITS | Clinical Summary ---
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 Active ASPIRIN 81 PO Take 1 tablet by mouth Daily. Active mycophenolate (CELLCEPT) 250 [...] 1 tablet by mouth Daily. 5 Active atorvastatin (LIPITOR) 80 MG tablet Take 1 tablet by mouth Every Night. 90 tablet 02/05/2025 2:10 PM EDT 5 Active finasteride (PROSCAR) 5 MG tablet Take 1 tablet by mouth Daily. 5 Active midodrine (PROAMATINE) 10 MG tablet Take 1 tablet by mouth 3 (Three) Times a Day Before Meals. 5 Active ticagrelor (BRILINTA) 90 MG tablet tablet Take 1 tablet by mouth 2 (Two) Times a Day. 5 Active mycophenolate (CELLCEPT) 500 MG tablet Take 2 tablets by mouth 2 (Two) Times a Day. Active fludrocortisone 0.1 MG tablet Take 1 tablet by mouth Daily. Active Active Problems Problem Noted Date Diagnosed Date Arterial stent thrombosis, initial encounter Acute ischemic stroke 02/16/2025 Osteoarthritis 10/20/2023 Anemia 10/17/2023 Carotid artery stenosis 10/17/2023 Rheumatoid arthritis 10/17/2023 Encounter for long-term (cur rent) use of high-risk medication 10/17/2023 Primary osteoarthritis involving multiple joints 10/17/2023 Current use of steroid medication 10/17/2023 CAD (coronary artery disease) 10/17/2023 Diabetes 10/17/2023 Hypertension 10/17/2023 Hypercholesteremia 10/17/2023 Stroke 10/17/2023 Renal disease 10/17/2023 Encounters Date Type Department Care Team Description 03/24/2025 3:00 PM EDT Office Visit [facility] [address] [facility] [address] [place] [address] Jeffery Phillips PA-C Stenosis of left carotid artery (Primary Dx) 03/24/2025 12:03 PM EDT - 03/24/2025 11:59 PM EDT Hospital Encounter [facility] [address] [facility] [address] [place] [phone] Mason Desouza MD Arterial stent thrombosis, initial encounter; Acute ischemic stroke; 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 Discharge Disposition: Home or Self Care 03/24/2025 Travel 03/17/2025 1:30 PM EDT Office Visit [facility] [address] [facility] [address] [place] [id number] Fanny Sadler APRN Cerebrovascular accident (CVA) due to bilateral stenosis of middle cerebral arteries (Primary Dx); Hypertension, unspecified type; Hypercholesteremia; Type 2 diabetes mellitus with hyperglycemia, without long-term current use of insulin 03/17/2025 Travel 03/10/2025 1:26 PM EDT - 03/10/2025 11:59 PM EDT Hospital Encounter [facility] ED [address] [facility] [address] [place] [phone] Discharge Disposition: Home or Self Care 03/10/2025 Travel 02/16/2025 1:14 PM EDT - 02/22/2025 2:34 PM EDT Hospital Encounter [address] [place] [phone] Grace Hummel MD Shields, Daniel Alan, DO Gerhardstein, Donna C, MD Sayied, Tausif, MD Seibert-Jacobs, Helen Resendiz MD Aphasia (Primary Dx); Dysarthria; Arterial stent thrombosis, initial encounter; Acute ischemic stroke; 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 Discharge Disposition: Rehab Facility or Unit (DC - External) 02/16/2025 Readmission Management [facility] [address] [place] [address] Karina Vidal, RN 02/16/2025 Travel 02/08/2025 Readmission Management [facility] [address] [place] [address] Karina Vidal RN 02/08/2025 Telephone [facility] [address] [phone] RAMSEY-RESTRICTIONS from Last 3 Months Social History Tobacco Use Types Packs/Day Years Used Date Smoking Tobacco: Never Passive Smoke Exposure: Never Smokeless Tobacco: Current Chew Tobacco Cessation:Ready to Q uit: No; Counseling Given: No Alcohol Use Standard Drinks/Week Comments Never 0 (1 standard drink = 0.6 oz pur e alcohol) [facility] Utilities Answer Date Recorded In the past 12 months has [employer], gas, oil, or water [employer] threatened to shut off services in your [...] GED or equivalent No 02/17/2025 Preferred Language Citizen Of [place] 02/17/2025 PHQ-2 Answer Date Recorded Patient Health Questionnaire-2 Score 0 02/16/2025 Sex and Gender Information Value Date Recorded Sex Assigned at Not on file Legal Sex Male 9:33 AM EDT Gender Identity Not on file Sexual Orientation Not on file Last Filed Vital Signs Vital Sign Reading Time Taken Comments Blood Pressure 136/98 03/24/2025 1:56 PM EDT Pulse 65 03/17/2025 1:16 PM EDT Temperature 36.1 C (97 F) 03/24/2025 1:56 PM EDT Respiratory Rate 18 02/22/2025 8:00 AM EDT Oxygen Saturation 98% 03/17/2025 1:16 PM EDT Inhaled Oxygen Concentration - - Weight 65.8 kg (145 lb) 03/24/2025 1:56 PM EDT Height 157.5 cm (5' 2 ) 03/24/2025 1:56 PM EDT Body Mass Index 26.52 03/24/2025 1:56 PM EDT Plan of Treatment Upcoming Encounters Date Type Department Care Team (Late st Contact Info) Description 06/09/2025 1:30 PM EST Office Visit [facility] NEUROLOGY [address] [facility] [address] [place] [address] Fanny Sadler APRN [address] [facility] [address] [address] 03/16/2026 11:00 AM EDT Appointment [facility] [address] [facility] [address] [place] [address] 03/16/2026 1:00 PM EDT Office Visit [facility] NEUR[facility] [address] [facility] [address] [place] [phone] Jeffery Phillips PA-C [address] [facility] [address] [place] [address] Health Maintenance Due Date Last Done Comments [...] (1 year) 01/26/1997 ANNUAL WELLNESS VISIT 10/17/2023 INFLUENZA VACCINE 12/24/2024 04/14/2023, 03/29/2018 COVID-19 Vaccine ( season) 2025, 08/02/2020 HEMOGLOBIN A1C 08/03/2025 02/03/2025 LIPID PANEL 02/03/2026 02/03/2025 HEPATITIS C SCREENING Completed 02/09/2025, 025 Medical Devices Implanted Type Area Shirt Presser Device Identifier Shelf Expiration Date Model / Serial / Lot Stnt Carotid Xact Tpr 10 To 8x40mm - [id number] Implanted:Qty: 1 on 02/04/2025 by Mason Desouza MD at [facility] Stent [employer] [id number] / / [id number] Procedures Procedure Name Priority Date/Time Associated Diagnosis Comments DUPLEX CAROTID LEFT CAR - PERFORMED PROCEDURE Routine 03/24/2025 12:30 PM EDT Arterial stent thrombosis, initial encounter Acute ischemic stroke 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 CORTISOL Routine 02/22/2025 10:19 AM EDT BASIC METABOLIC PANEL Routine 02/21/2025 10:02 AM EDT CBC (NO DIFF) Routine 02/21/2025 10:02 AM EDT URINALYSIS, MICROSCOPIC ONLY Routine 02/20/2025 12:16 PM EDT URINALYSIS W/ CULTURE IF INDICATED Routine 02/20/2025 12:16 PM EDT SCANNED - TELEMETRY 02/20/2025 7 :47 AM EDT SCANNED - TELEMETRY 02/19/2025 7 :34 AM EDT POCT GLUCOSE FINGERSTICK Routine 02/18/2025 4:50 PM EDT POCT GLUCOSE FINGERSTICK Routine 02/18/2025 11:38 AM EDT POCT GLUCOSE FINGERSTICK Routine 02/18/2025 7:36 AM EDT HEPARIN ANTI XA Timed 02/18/2025 7:07 AM EDT BASIC METABOLIC PANEL Routine 02/18/2025 6:11 AM EDT CBC (NO DIFF) Routine 02/18/2025 6:11 AM EDT PHOSPHORUS Routine 02/18/2025 6:11 AM EDT MAGNESIUM Routine 02/18/2025 6:11 AM EDT HEPARIN ANTI XA Routine 02/18/2025 6:[address] ANGIOGRAM NECK Routine 02/18/2025 5:2 2 AM EDT POCT GLUCOSE FINGERSTICK Routine 02/17/2025 8:55 PM EDT HEPARIN ANTI XA Timed 02/17/2025 5:33 PM EDT POCT GLUCOSE FINGERSTICK Routine 02/17/2025 4:46 PM EDT POCT GLUCOSE FINGERSTICK Routine 02/17/2025 11:43 AM EDT HEPARIN ANTI XA Timed 02/17/2025 11:16 AM EDT P2Y12 PLATELET INHIBITION Routine 02/17/2025 11:15 AM EDT DUPLEX CAROTID LEFT CAR - PERFORMED PROCEDURE Routine 02/17/2025 8:58 AM EDT POCT GLUCOSE FINGERSTICK Routine 02/17/2025 7:28 AM EDT WOUND OSTOMY EVAL AND TREAT Routine 02/17/2025 6:10 AM EDT CBC AND DIFFERENTIAL Urgent 02/17/2025 2:34 AM EDT CBC WITH AUTO DIFFERENTIAL Urgent 02/17/2025 2:34 AM EDT MAGNESIUM Routine 02/17/2025 2:34 AM EDT PHOSPHORUS Routine 02/17/2025 2:34 AM EDT COMPREHENSIVE METABOLIC PANEL Routine 02/17/2025 2:34 AM EDT HEPARIN ANTI XA Timed 02/17/2025 2:34 AM EDT MRI BRAIN WO CONTRAST Routine 02/16/2025 11:26 PM EDT HEPARIN ANTI XA Timed 02/16/2025 8:28 PM EDT POCT GLUCOSE FINGERSTICK Routine 02/16/2025 8:21 PM EDT POCT GLUCOSE FINGERSTICK Routine 02/16/2025 5:15 PM EDT ECG 12-LEAD Routine 02/16/2025 4:[address] CEREBRAL PERFUSION W WO CONTRAST STAT 02/16/2025 3:16 PM EDT COVID-19/FLUA&B/RSV, 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 MEDIA 1 HR TAT Urgent 02/16/2025 2:41 PM EDT CBC AND DIFFERENTIAL STAT 02/16/2025 2:12 PM EDT COMPREHENSIVE METABOLIC PANEL Urgent 02/16/2025 2:12 PM EDT CBC WITH AUTO DIFFERENTIAL STAT 02/16/2025 2:12 PM EDT APTT STAT 02/16/2025 2:12 PM EDT PROTIME-INR STAT 02/16/2025 2:12 PM EDT HEPARIN ANTI XA STAT 02/16/2025 2:12 PM EDT P2Y12 PLATELET INHIBITION Urgent 02/16/2025 2:[address] OUTSIDE HEAD Routine 02/16/2025 11:[address] OUTSIDE NECK Routine 02/16/2025 11:[address] OUTSIDE HEAD Routine 02/16/2025 11:26 AM EDT HEMOGLOBIN A1C Urgent 02/03/2025 11:39 AM EDT LIPID PANEL Urgent 02/03/2025 11:39 AM EDT from Last 3 Months or Most Recently Relevant to Health Maintenance Results * DUPLEX CAROTID LEFT CAR - PERFORMED PROCEDURE (03/24/2025 12:30 PM EDT) Only the most recent of2 resultswithin the time period is included. Prox CCA PSV 48.2 cm/sec Prox CCA [...] left carotid stent placement performed on 02/04/2025. Mason Desouza MD CV VASCULAR ORDERABLES Fin al Result * Cortisol (02/22/2025 10:19 AM EDT) [facility] Cortisol 10.10 mcg/dL 02/22/2025 11:44 AM EDT [facility] Blood Venipuncture / Unknown 02/22/2025 10:19 AM EDT 02/22/2025 10:39 AM EDT Narrative [facility] - 02/22/2025 11:44 AM EDT Cortisol Reference Ranges: Cortisol 6AM - 10AM Range: 6.02-18.40 mcg/dl Cortisol 4PM - 8PM Range: 2.68-10.50 mcg/dl Results may be falsely increased if patient taking Biotin. Helen Goldberg MD LAB BLOOD ORDPiyush JIMENEZEDUARDO Final Result [facility]
[address] [place] [address], * (ABNORMAL) CBC (No Diff) (02/21/2025 10:02 AM EDT) Only the most recent of2 resultswithin the time period is included. [facility] WBC 6.07 3.40 - 10.80 10*3/mm3 02/21/2025 11:02 AM EDT [facility] RBC 3.64(L) 4.14 - 5.80 10*6/mm3 02/21/2025 11:02 AM EDT [facility] Hemoglobin 10.6(L) 13.0 - 17.7 g/dL 02/21/2025 11:02 AM EDT [facility] Hematocrit 33.6(L) 37.5 - 51.0 % 02/21/2025 11:02 AM EDT [facility] MCV 92.3 79.0 - 97.0 fL 02/21/2025 [facility] MCH 29.1 26.6 - 33.0 pg 02/21/2025 11:02 AM EDT [facility] MCHC 31.5 31.5 - 35.7 g/dL 02/21/2025 11:02 AM EDT [facility] RDW 13.0 12.3 - 15.4 % 02/21/2025 11:02 AM EDT [facility] RDW-SD 43.2 37.0 - 54.0 fl 02/21/2025 11:02 AM EDT [facility] MPV 9.3 6.0 - 12.0 fL 02/21/2025 11:02 AM EDT [facility] Platelets 152 140 - 450 10*3/mm3 02/21/2025 11:02 AM EDT [facility] Blood Venipuncture / Unknown 02/21/2025 10:02 AM EDT 02/21/2025 10:53 AM EDT us Helen Goldberg MD LAB BLOOD ORDPiyush QUIROZ Final Result [facility]
[address] [place] [address], * (ABNORMAL) Basic Metabolic Panel (02/21/2025 10:02 AM EDT) Only the most recent of2 resultswithin the time period is included. Glucose 149(H) 65 - 99 mg/dL 02/21/2025 11:26 AM EDT [facility] BUN 18.9 8.0 - 23.0 mg/dL 02/21/2025 11:26 AM EDT [facility] Creatinine 1.06 0.76 - 1.27 mg/dL 02/21/2025 11:26 AM EDT [facility] Sodium 135(L) 136 - 145 mmol/L 02/21/2025 11:26 AM EDT [facility] Potassium 4.3 3.5 - 5.2 mmol/L 02/21/2025 11:26 AM EDT [facility] Chloride 105 98 - 107 mmol/L 02/21/2025 11:26 AM EDT [facility] CO2 21.6(L) 22.0 - 29.0 mmol/L 02/21/2025 11:26 AM EDT [facility] Calcium 8.8 8.6 - 10.5 mg/dL 02/21/2025 11:26 AM EDT [facility] BUN/Creatinine Ratio 17.8 7.0 - 25.0 02/21/2025 11:26 AM EDT [facility] Anion Gap 8.4 5.0 - 15.0 mmol/L 02/21/2025 11:26 AM EDT [facility] eGFR 74.1 >60.0 mL/min/1.7 3 02/21/2025 11:26 AM EDT [facility] Blood Venipuncture / Unknown 02/21/2025 10:02 AM EDT 02/21/2025 10:53 AM EDT Narrative [facility] - 02/21/2025 11:26 AM EDT GFR Categories in Chronic Kidney [...] not include race as a factor us Helen Goldberg MD LAB BLOOD HUANG QUIROZ Final Result [facility]
[address] [place] [address], * (ABNORMAL) Urinalysis, Microscopic Only - Urine, Clean Catch (02/20/2025 12:16 PM EDT) RBC, UA 6-10(A) None Seen, 0-2 /HPF 02/20/2025 12:50 PM EDT [facility] WBC, UA 6-10(A) None Seen, 0-2 /HPF 02/20/2025 12:50 PM EDT [facility] Comment:Urine culture not in dicated. Bacteria, UA None Seen None Seen /HPF 02/20/2025 12:50 PM EDT [facility] Squamous Epithelial Cells, UA 0-2 None Seen, 0-2 /HPF 02/20/2025 12:50 PM EDT [facility] Hyaline Casts, UA None Seen None Seen /LPF 02/20/2025 12:50 PM EDT [facility] Methodology Automated Microscopy 02/20/2025 12:50 PM EDT [facility] Urine Urine specimen obtained by clean catch procedure / Unknown Collection / Unknown 02/20/2025 12:16 PM EDT 02/20/2025 12:42 PM EDT Helen Goldberg MD URINE ORDERABL ES Final Result [facility]
[address] [place] [address], * (ABNORMAL) Urinalysis With Culture If Indicated - Urine, Clean Catch (02/20/2025 12:16 PM EDT) Color, UA Yellow Yellow, Straw 02/20/2025 12:50 PM EDT [facility] Appearance, UA Clear Clear 02/20/2025 12:50 PM EDT [facility] pH, UA 5.5 5.0 - 8.0 02/20/2025 12:50 PM EDT [facility] Specific [place], UA 1.017 1.005 - 1.030 02/20/2025 12:50 PM EDT [facility] Glucose, UA Negative Negative 02/20/2025 12:50 PM EDT [facility] Ketones, UA Negative Negative 02/20/2025 12:50 PM EDT [facility] Bilirubin, UA Negative Negative 02/20/2025 12:50 PM EDT [facility] Blood, UA Moderate (2+)(A) Negative 02/20/2025 12:50 PM EDT [facility] Protein, UA Negative Negative 02/20/2025 12:50 PM EDT [facility] Leuk Esterase, UA Small (1+)(A) Negative 02/20/2025 12:50 PM EDT [facility] Nitrite, UA Negative Negative 02/20/2025 12:50 PM EDT [facility] Urobilinogen, UA 1.0 E.U./dL 0.2 - 1.0 E.U./dL 02/20/2025 12:50 PM EDT [facility] Urine Urine specimen obtained by clean catch procedure / Unknown Collection / Unknown 02/20/2025 12:16 PM EDT 02/20/2025 12:42 PM EDT Narrative [facility] - 02/20/2025 12:50 PM EDT In absence of clinical symptoms, the presence of pyuria, bacteria, and/or nitrites on the urinalysis result does not correlate with infection. Helen Goldberg MD URINE ORDERABL ES Final Result [facility]
[address] [place] [address], * Telemetry Scan (02/20/2025 7:47 AM EDT) Only the most recent of2 resultswithin the time period is included. [facility] Onbase ECG ORDERABLES Final Result * POC Glucose Once (02/18/2025 4:50 PM EDT) Only the most recent of9 resultswithin the time period is included. Glucose 97 70 - 130 mg/dL 02/18/2025 5:04 PM EDT [facility] Comment:Serial Number: [id number] Blood 02/18/2025 4:50 PM EDT 02/18/2025 5:04 PM EDT us Maria Eugenia Oneill MD POINT OF CARE TEST ORDERABLES F inal Result Performing Organization Address [facility] Co de Phone Number [facility]
[address] [place] [address], * Heparin Anti-Xa (02/18/2025 7:07 AM EDT) Only the most recent of7 resultswithin the time period is included. Heparin Anti-Xa (UFH) 0.42 0.30 - 0.70 IU/ml 02/18/2025 7:31 AM EDT [facility] Blood Line / Unknown 02/18/2025 7: 07 AM EDT 02/18/2025 7:16 AM EDT us Son Grijalva PharmD LAB BLOOD ORDERABLES Birgit l Result Performing Organization Address [facility] de Phone Number [facility]
[address] [place] [address], * Phosphorus (02/18/2025 6:11 AM EDT) Only the most recent of2 resultswithin the time period is included. Phosphorus 2.8 2.5 - 4.5 mg/dL 02/18/2025 6:43 AM EDT [facility] Blood Structure of left upper limb / Unknown Venipuncture / Unknown 02/18/2025 6:11 AM EDT 02/18/2025 6:16 AM EDT us Maria Eugenia Oneill MD LAB BLOOD ORDERABLES Final Resu lt Performing Organization Address City/[facility] Co de Phone Number [facility]
[address] [place] [address], * Magnesium (02/18/2025 6:11 AM EDT) Only the most recent of2 resultswithin the time period is included. Magnesium 1.7 1.6 - 2.4 mg/dL 02/18/2025 6:43 AM EDT [facility] Blood Structure of left upper limb / Unknown Venipuncture / Unknown 02/18/2025 6:11 AM EDT 02/18/2025 6:16 AM EDT us Maria Eugenia Oneill MD LAB BLOOD ORDERABLES Final Resu lt Performing Organization Address [facility] Co de Phone Number [facility]
[address] [place] [address], * CT Angiogram Neck (02/18/2025 5:22 AM EDT) Anatomical Region Laterality Modality Neck, Vascular N/A Computed Tomogra phy 02/18/2025 5:49 AM EDT Impressions 02/18/2025 5:54 AM EDT Impression: 1.Stable thrombus in the left ICA portion of the stent with a short segment of near occlusion and greater than 80% stenosis through the stent. 2.No significant right carotid stenosis. 3.Mild cervical degenerative changes. Electronically Signed: Ruddy Rivera MD 02/18/2025 5:54 AM EDT Workstation ID: [id number] Narrative 02/18/2025 5:[address] ANGIOGRAM NECK Date of Exam: 02/18/2025 5:01 AM EDT Indication: Repeat CT angiogram to evaluate left ICA IntraStent thrombus. Comparison: 02/16/2025. Technique: CTA of the neck was performed before and after the uneventful intravenous administration of iodinated contrast. Reconstructed coronal and sagittal images were also obtained. In addition, a 3-D volume rendered image was created for interpretation. Automated exposure control and iterative reconstruction methods were used. Findings: Aortic arch: There is minimal aortic arch plaque. There is conventional three- vessel arch anatomy. The brachiocephalic and bilateral subclavian arteries appear widely patent. Right carotid: The right CCA, carotid bifurcation, ECA and distal branches and cervical ICA appear widely patent. There is minimal carotid bifurcation plaque. Left carotid: The proximal and mid CCA is normal. There is a metallic stent that traverses the distal CCA, carotid bifurcation and extends into the proximal ICA. There is stable thrombus in the ICA portion of the stent with a short segment of near occlusion as before. There is greater than 80% stenosis through the stent. The mid and distal cervical ICA is patent. Vertebral arteries following normal course and appear uniform caliber throughout the neck. There is left vertebral artery dominance. The visualized V4 segments are patent. Nonvascular findings: There is no evidence of a neck mass or adenopathy. Thyroid is homogeneous. There is mild subpleural reticulation in the right upper lung. Salivary glands are symmetric. No acute osseous abnormality. Mild cervical degenerative changes. The patient is edentulous. Procedure Note Ruddy Rivera MD - 02/18/2025 CT ANGIOGRAM NECK Date of Exam: 02/18/2025 5:01 AM EDT Indication: Repeat CT angiogram to evaluate left ICA IntraStentthrombus. Comparison: 02/16/2025. Technique: CTA of the neck was performed before and after the uneventfulintravenous administration of iodinated contrast. Reconstructed coronaland sagittal images were also obtained. In addition, a 3-D volume renderedimage was created for interpretation. Automated exposure control and iterative reconstructionmethods were used. Findings: Aortic arch: There is minimal aortic arch plaque. There is conventionalthree- vessel arch anatomy. The brachiocephalic and bilateral subclavianarteries appear widely patent. Right carotid: The right CCA, carotid bifurcation, ECA and distal branchesand cervical ICA appear widely patent. There is minimal carotidbifurcation plaque. Left carotid: The proximal and mid CCA is normal. There is a metallicstent that traverses the distal CCA, carotid bifurcation and extends intothe proximal ICA. There is stable thrombus in the ICA portion of the stentwith a short segment of near occlusion as before. There is greater than 80% stenosis through the stent.The mid and distal cervical ICA is patent. Vertebral arteries following normal course and appear uniform caliberthroughout the neck. There is left vertebral artery dominance. Thevisualized V4 segments are patent. Nonvascular findings: There is no evidence of a neck mass or adenopathy.Thyroid is homogeneous. There is mild subpleural reticulation in the rightupper lung. Salivary glands are symmetric. No acute osseous abnormality.Mild cervical degenerative changes. The patient is edentulous. IMPRESSION: Impression: 1.Stable thrombus in the left ICA portion of the stent with a shortsegment of near occlusion and greater than 80% stenosis through thestent. 2.No significant right carotid stenosis. 3.Mild cervical degenerative changes. Electronically Signed: Ruddy Rivera MD 02/18/2025 5:54 AM EDT Workstation ID: [id number] us Anderson Staton PA-C IMG CT ORDERABLES Final Resu lt * P2Y12 Platelet Inhibition (02/17/2025 11:15 AM EDT) Only the most recent of2 resultswithin the time period is included. P2Y12 Reactivity Unit 72 PRU DISK DIFFUSION 02/17/2025 11:49 AM EDT [facility] Blood Line / Unknown 02/17/2025 11 :15 AM EDT 02/17/2025 11:15 AM EDT [facility] - 02/17/2025 11:49 AM EDT P2Y12 Interpretation: Pre-Drug normal reference [...] and lab data available to the clinician. Mason Desouza MD LAB BLOOD ORDERABLES Final Result [facility]
[address] [place] [address], * (ABNORMAL) CBC Auto Differential (02/17/2025 2:34 AM EDT) Only the most recent of2 resultswithin the time period is included. WBC 6.27 3.40 - 10.80 10*3/mm3 02/17/2025 2:48 AM EDT [facility] RBC 3.73(L) 4.14 - 5.80 10*6/mm3 02/17/2025 2:48 AM EDT [facility] Hemoglobin 11.0(L) 13.0 - 17.7 g/dL 02/17/2025 2:48 AM EDT [facility] Hematocrit 34.3(L) 37.5 - 51.0 % 02/17/2025 2:48 AM EDT [facility] MCV 92.0 79.0 - 97.0 fL 02/17/2025 2:48 AM EDT [facility] MCH 29.5 26.6 - 33.0 pg 02/17/2025 2:48 AM EDT [facility] MCHC 32.1 31.5 - 35.7 g/dL 02/17/2025 2:48 AM EDT [facility] RDW 12.7 12.3 - 15.4 % 02/17/2025 2:48 AM EDT [facility] RDW-SD 42.4 37.0 - 54.0 fl 02/17/2025 2:48 AM EDT [facility] MPV 9.9 6.0 - 12.0 fL 02/17/2025 2:48 AM EDT [facility] Platelets 140 140 - 450 10*3/mm3 02/17/2025 2:48 AM [facility] LABORATORY Neutrophil % 79.4(H) 42.7 - 76.0 % 02/17/2025 2:48 AM [facility] Lymphocyte % 11.3(L) 19.6 - 45.3 % 02/17/2025 2:48 AM [facility] Monocyte % 7.5 5.0 - 12.0 % 02/17/2025 2:48 AM [facility] Eosinophil % 1.0 0.3 - 6.2 % 02/17/2025 2:48 AM [facility] Basophil % 0.3 0.0 - 1.5 % 02/17/2025 2:48 AM [facility] Immature Grans % 0.5 0.0 - 0.5 % 02/17/2025 2:48 AM [facility] Neutrophils, Absolute 4.98 1.70 - 7.00 10*3/mm3 02/17/2025 2:48 AM [facility] Lymphocytes, Absolute 0.71 0.70 - 3.10 10*3/mm3 02/17/2025 2:48 AM [facility] Monocytes, Absolute 0.47 0.10 - 0.90 10*3/mm3 02/17/2025 2:48 AM [facility] Eosinophils, Absolute 0.06 0.00 - 0.40 10*3/mm3 02/17/2025 2:48 AM [facility] Basophils, Absolute 0.02 0.00 - 0.20 10*3/mm3 02/17/2025 2:48 AM [facility] Immature Grans, Absolute 0.03 0.00 - 0.05 10*3/mm3 02/17/2025 2:48 AM [facility] nRBC 0.0 0.0 - 0.2 /100 WBC 02/17/2025 2:48 AM [facility] Blood Venipuncture / Unknown 02/17/2025 2:34 AM EDT 02/17/2025 2:42 AM EDT us Estrella Hsu SENIOR PUBLICATIONS SPECIALIST LAB BLOOD ORDERABLE S Final Result [facility]
[address] [place] [address], * (ABNORMAL) Comprehensive Metabolic Panel (02/17/2025 2:34 AM EDT) Only the most recent of2 resultswithin the time period is included. Glucose 86 65 - 99 mg/dL 02/17/2025 3:06 AM EDT [facility] BUN 15.6 8.0 - 23.0 mg/dL 02/17/2025 3:06 AM EDT [facility] Creatinine 1.01 0.76 - 1.27 mg/dL 02/17/2025 3:06 AM EDT [facility] Sodium 138 136 - 145 mmol/L 02/17/2025 3:06 AM EDT [facility] Potassium 4.3 3.5 - 5.2 mmol/L 02/17/2025 3:06 AM EDT [facility] Chloride 108(H) 98 - 107 mmol/L 02/17/2025 3:06 AM EDT [facility] CO2 19.8(L) 22.0 - 29.0 mmol/L 02/17/2025 3:06 AM EDT [facility] Calcium 8.6 8.6 - 10.5 mg/dL 02/17/2025 3:06 AM EDT [facility] Total Protein 6.4 6.0 - 8.5 g/dL 02/17/2025 3:06 AM EDT [facility] Albumin 3.5 3.5 - 5.2 g/dL 02/17/2025 3:06 AM EDT [facility] ALT (SGPT) 14 1 - 41 U/L 02/17/2025 3:06 AM EDT [facility] AST (SGOT) 22 1 - 40 U/L 02/17/2025 3:06 AM EDT [facility] Alkaline Phosphatase 90 39 - 117 U/L 02/17/2025 3:06 AM EDT [facility] Total Bilirubin 0.3 0.0 - 1.2 mg/dL 02/17/2025 3:06 AM EDT [facility] Globulin 2.9 gm/dL 02/17/2025 3:06 AM EDT [facility] Comment:Calculated Result A/G Ratio 1.2 g/dL 02/17/2025 3:06 AM EDT [facility] BUN/Creatinine Ratio 15.4 7.0 - 25.0 02/17/2025 3:06 AM EDT [facility] Anion Gap 10.2 5.0 - 15.0 mmol/L 02/17/2025 3:06 AM EDT [facility] eGFR 78.5 >60.0 mL/min/1.7 3 02/17/2025 3:06 AM EDT [facility] Blood Venipuncture / Unknown 02/17/2025 2:34 AM EDT 02/17/2025 2:42 AM EDT [facility] - 02/17/2025 3:06 AM EDT GFR Categories in Chronic Kidney [...] does not include race as a factor Linnea Fuller SENIOR PUBLICATIONS SPECIALIST LAB BLOOD ORDERABLES Final Result [facility]
[address] [place] [address], * MRI Brain Without Contrast (02/16/2025 11:26 PM EDT) Anatomical Region Laterality Modality Head, Neck N/A Magnetic Resonan ce 02/17/2025 3:51 AM EDT Impressions 02/17/2025 4:01 AM EDT Impression: 1.Multiple new small and punctate foci of acute/subacute infarction in the left MCA territory and left occipital lobe. 2.Resolving area of infarction in the lateral high left frontal lobe. 3.Stable moderate chronic small vessel ischemic change and generalized parenchymal volume loss. 4.Chronic right maxillary sinus mucosal disease. Electronically Signed: Ruddy Rivera MD 02/17/2025 4:01 AM EDT Workstation ID: [id number] Narrative 02/17/2025 4:01 AM EDT MRI BRAIN WO CONTRAST Date of Exam: 02/16/2025 11:08 PM EDT Indication: Stroke, follow up eval for new stroke; transient RUE weakness, thrombus in LICA stent. Comparison: 02/03/2025. Technique: Routine multiplanar/multisequence sequence images of the brain were obtained without contrast administration. Findings: There is a resolving area of diffusion restriction within the lateral high left frontal lobe. There are multiple new small and punctate foci of diffusion restriction within the left MCA territory and within the left occipital lobe compatible with small areas of acute/subacute infarction that have developed since 02/03/2025. There is stable moderate underlying chronic small vessel ischemic change. No mass effect or midline shift. No acute or chronic intracranial hemorrhage. There is generalized parenchymal volume loss. Midline structures are intact. Calvarial and superficial soft tissue signal is within normal limits. Patient is edentulous. The major arterial flow voids remain intact. There is diffuse filling of atelectatic right maxillary sinus compatible with chronic mucosal disease. There is trace left mastoid effusion. Orbits are symmetric. Procedure Note Ruddy Rivera MD - 02/17/2025 MRI BRAIN WO CONTRAST Date of Exam: 02/16/2025 11:08 PM EDT Indication: Stroke, follow up eval for new stroke; transient RUE weakness, thrombus in LICA stent. Comparison: 02/03/2025. Technique: Routine multiplanar/multisequence sequence images of the brainwere obtained without contrast administration. Findings: There is a resolving area of diffusion restriction within the lateral highleft frontal lobe. There are multiple new small and punctate foci ofdiffusion restriction within the left MCA territory and within the leftoccipital lobe compatible with small areas of acute/subacute infarction that have developed since 02/03/2025.There is stable moderate underlying chronic small vessel ischemic change.No mass effect or midline shift. No acute or chronic intracranialhemorrhage. There is generalized parenchymal volume loss. Midline structures are intact. Calvarial andsuperficial soft tissue signal is within normal limits. Patient isedentulous. The major arterial flow voids remain intact. There is diffusefilling of atelectatic right maxillary sinus compatible with chronic mucosal disease. There is trace left mastoideffusion. Orbits are symmetric. IMPRESSION: Impression: 1.Multiple new small and punctate foci of acute/subacute infarction in theleft MCA territory and left occipital lobe. 2.Resolving area of infarction in the lateral high left frontal lobe. 3.Stable moderate chronic small vessel ischemic change and generalizedparenchymal volume loss. 4.Chronic right maxillary sinus mucosal disease. Electronically Signed: Ruddy Rivera MD 02/17/2025 4:01 AM EDT Workstation ID: [id number] Estrella Hsu APRN [facility] MRI ORDERABLES Final Result * ECG 12 Lead Stroke Evaluation (02/16/2025 4:34 PM EDT) QT Interval 392 ms ECG QTC Interval 414 ms ECG 02/16/2025 4:34 PM EDT 02/17/2025 12:27 PM EDT Narrative ECG - 02/17/2025 12:27 PM EDT Test Reason : Stroke Evaluation Blood Pressure : */* mmHG Vent. Rate : 67 BPM Atrial Rate : 67 BPM P-R Int : 204 ms QRS Dur : 80 ms QT Int : 392 ms P-R-T Axes : 46 -54 20 degrees QTcB Int : 414 ms Normal sinus rhythm with sinus arrhythmia Pulmonary disease pattern Left anterior fascicular block Abnormal ECG No previous ECGs available Confirmed by Braeden Cardenas ([id number]) on 02/17/2025 12:27:19 PM Referred By: Confirmed By: Braeden Cardenas Procedure Note Braeden Cardenas MD - 02/17/2025 Test Reason : Stroke Evaluation Blood Pressure : */* mmHG Vent. Rate : 67 BPM Atrial Rate : 67 BPM P-R Int : 204 ms QRS Dur : 80 ms QT Int : 392 ms P-R-T Axes : 46 -54 20 degrees QTcB Int : 414 ms Normal sinus rhythm with sinus arrhythmia Pulmonary disease pattern Left anterior fascicular block Abnormal ECG No previous ECGs available Confirmed by Braeden Cardenas ([id number]) on 02/17/2025 12:27:19 PM Referred By: Confirmed By: Braeden Cardenas us Maria Eugenia Oneill MD ECG ORDERABLES Final Result ECG * CT CEREBRAL PERFUSION WITH & WITHOUT CONTRAST (02/16/2025 3:16 PM EDT) Anatomical Region Laterality Modality Head N/A Computed Tomogra phy 02/16/2025 3:28 PM EDT Impressions 02/16/2025 3:32 PM EDT Impression: Examination appears within normal limits. Electronically Signed: Lucas Banks MD 02/16/2025 3:32 PM EDT Workstation ID: [id number] Narrative 02/16/2025 3:[address] CEREBRAL PERFUSION W WO CONTRAST Date of Exam: 02/16/2025 3:11 PM EDT Indication: eval LICA stent thrombus, evaluate flow. Comparison: CT head from earlier today Technique: Axial CT images of the brain were obtained prior to and after the administration of iodinated contrast. Core blood volume, core blood flow, mean transit time, and Tmax images were obtained utilizing the Rapid software protocol. A limited CT angiogram of the head was also performed to measure the blood vessel density. The radiation dose reduction device was turned on for each scan per the ALARA (As Low as Reasonably Achievable) protocol. Findings: The intracranial cerebral perfusion appears normal. Procedure Note Lucas Banks MD - 02/16/2025 CT CEREBRAL PERFUSION W WO CONTRAST Date of Exam: 02/16/2025 3:11 PM EDT Indication: eval LICA stent thrombus, evaluate flow. Comparison: CT head from earlier today Technique: Axial CT images of the brain were obtained prior to and afterthe administration of iodinated contrast. Core blood volume, core bloodflow, mean transit time, and Tmax images were obtained utilizing the Rapid[employer] protocol. A limited CT angiogram of the head was also performed to measure the blood vesseldensity. The radiation dose reduction device was turned on for each scan per theALARA (As Low as Reasonably Achievable) protocol. Findings: The intracranial cerebral perfusion appears normal. IMPRESSION: Impression: Examination appears within normal limits. Electronically Signed: Lucas Banks MD 02/16/2025 3:32 PM EDT Workstation ID: [id number] Estrella Hsu SENIOR PUBLICATIONS SPECIALIST IMG CT ORDERABLES F inal Result * COVID-19, FLU A/B, RSV PCR 1 HR TAT - Swab, Nasopharynx (02/16/2025 2:41 PM EDT) COVID19 Not Detected Not Detected - Ref. Range CEPHEID GENEXPERT 02/16/2025 3:33 PM EDT [facility] Influenza A PCR Not Detected Not Detected CEPHEID GENEXPERT 02/16/2025 3:33 PM EDT [facility] Influenza B PCR Not Detected Not Detected CEPHEID GENEXPERT 02/16/2025 3:33 PM EDT [facility] RSV, PCR Not Detected Not Detected CEPHEID GENEXPERT 02/16/2025 3:33 PM EDT [facility] Swab Nasopharyngeal structure / Unknown Collection / Unknown 02/16/2025 2:41 PM EDT 02/16/2025 2:41 PM EDT Ruddy Monteiro DO MICROBIOLOGY - GENERAL OR DERABLES Final Result [facility]
[address] [place] [address], * (ABNORMAL) aPTT (02/16/2025 2:12 PM EDT) PTT 25.7(L) 60.0 - 90.0 seconds 02/16/2025 2:59 PM EDT [facility] Blood Venipuncture / Unknown 02/16/2025 2:12 PM EDT 02/16/2025 2:29 PM EDT Narrative [facility] - 02/16/2025 2:59 PM EDT PTT = The equivalent PTT values for the therapeutic range of heparin levels at 0.3 to 0.5 U/ml are 60 to 70 seconds. Estrella Hsu SENIOR PUBLICATIONS SPECIALIST LAB BLOOD ORDERABLE S Final Result Performing Organization Address City/[facility]/ZIP Co de Phone Number [facility]
[address] [place] [address], * Protime-INR (02/16/2025 2:12 PM EDT) Protime 13.7 12.2 - 15.3 Seconds 02/16/2025 2:59 PM EDT [facility] INR 0.99 0.89 - 1.12 02/16/2025 2:59 PM EDT [facility] Blood Venipuncture / Unknown 02/16/2025 2:12 PM EDT 02/16/2025 2:29 PM EDT Estrella Hsu SENIOR PUBLICATIONS SPECIALIST LAB BLOOD ORDERABLE S Final Result Performing Organization Address City/[facility]/ZIP Co de Phone Number [facility]
[address] [place] [address], [place] [phone] * CT Outside Head (02/16/2025 11:27 AM EDT) Only the most recent of2 resultswithin the time period is included. Narrative SYSTEMGENERATED, DOCUMENTATION - 02/16/2025 11:27 AM EDT This procedure was auto-finalized with no dictation required. us [employer] Outside Films IMG CT ORDERABLES Final Re sult * CT Outside Neck (02/16/2025 11:26 AM EDT) Mike SYSTEMGENERATED, DOCUMENTATION - 02/16/2025 11:26 AM EDT This procedure was auto-finalized with no dictation required. us [employer] Outside [employer] IMG CT ORDERABLES Final Re sult * Hemoglobin A1c (02/03/2025 11:39 AM EDT) Hemoglobin A1C 5.42 4.80 - 5.60 % 02/03/2025 1:21 PM EDT [facility] Blood Venipuncture / Unknown 02/03/2025 11:39 AM EDT 02/03/2025 12:22 PM EDT Narrative [facility] - 02/03/2025 1:21 PM EDT Hemoglobin A1C Ranges: Increased Risk for Diabetes 5.7% to 6.4% Diabetes >= 6.5% Diabetic Goal < 7.0% Estrella Hsu SENIOR PUBLICATIONS SPECIALIST LAB BLOOD ORDERABLE S Final Result [facility]
[address] [place] [address], * (ABNORMAL) Lipid Panel (02/03/2025 11:39 AM EDT) Total Cholesterol 93 0 - 200 mg/dL 02/03/2025 12:47 PM EDT [facility] Triglycerides 83 0 - 150 mg/dL 02/03/2025 12:47 PM EDT [facility] HDL Cholesterol 24(L) 40 - 60 mg/dL 02/03/2025 12:47 PM EDT [facility] LDL Cholesterol 52 0 - 100 mg/dL 02/03/2025 12:47 PM EDT [facility] VLDL Cholesterol 17 5 - 40 mg/dL 02/03/2025 12:47 PM EDT [facility] LDL/HDL Ratio 2.18 02/03/2025 12:47 PM EDT [facility] Blood Venipuncture / Unknown 02/03/2025 11:39 AM EDT 02/03/2025 12:22 PM EDT Narrative [facility] - 02/03/2025 12:47 PM EDT Cholesterol [...] is calculated using the NIH LDL-C calculation. Estrella Hsu SENIOR PUBLICATIONS SPECIALIST LAB BLOOD ORDERABLE S Final Result [facility]
[address] [place] [address], from Last 3 Months or Most Recently Relevant to Health Maintenance Insurance MEDICARE A & B [facility] OPTIONS Advance Directives * CPR (Attempt to Resuscitate) (Latest Code Status on File) Date Activated Date Inactivated Comments 02/16/2025 1:45 PM 02/22/2025 4:35 PM Question Answer Comments Code Status (Patient has no pulse and is not breathing): CPR (Attempt to Resuscitate) Medical Interventions (Patie nt has pulse or is breathing): Full Support * CPR (Attempt to Resuscitate) Date Activated Date Inactivated Comments 02/02/2025 9:09 PM 02/05/2025 6:18 PM Question Answer Comments Code Status (Patient has no pulse and is not breathing): CPR (Attempt to Resuscitate) Medical Interventions (Patie nt has pulse or is breathing): Full Support Level Of Support Discussed With: Patient Care Teams Acid Tank Cleaner Relationship Specialty Start Date End Date Guera Bermeo APRN [address] [place] [address] [place] [address] PCP - General Internal Medicine 02/03/25
--- OUTSIDE RECORDS SUMMARY | 2025-05-10 10:57 | XMS_ITS | Encounter Summary ---
Author Organization [facility] Address [address] [place] [address] Care Team Providers Care Dietary Worker Name Role Phone Guera Bermeo APRN Primary Care Provider [phone] Encounter Details Date Type Department Care Team (Latest Contact Info) Description 03/24/2025 Travel Social History Tobacco Use Types Packs/Day Years Used Date Smoking Tobacco: Never Passive Smoke Exposure: Never Smokeless Tobacco: Current Chew Alcohol Use Standard Drinks/Week Comments Never 0 (1 standard drink = 0.6 oz pur e alcohol) [facility] Utilities Answer Date Recorded In the past 12 months has [employer], gas, oil, or water company threatened [...] GED or equivalent No 02/17/2025 Preferred Language Canadian 02/17/2025 PHQ-2 Answer Date Recorded Patient Health Questionnaire-2 Score 0 02/16/2025 Sex and Gender Information Value Date Recorded Sex Assigned at Not on file Legal Sex Male 9:33 AM EDT Gender Identity Not on file Sexual Orientation Not on file documented as of this encounter Functional Status * AUDIT-C Score Answer Date of Assessment Author 0 03/24/2025 1:57 PM Caleb Asher * Question Answer Date of Assessment Author Q1: How often do you have a drink containing alcohol? Never 03/24/2025 1:57 PM MINGT Kamar Hull Q2: How many drinks containing alcohol do you have on a typical day when you are drinking? Patient does not drink 03/24/2025 1:57 PM Kamar Asher Q3: How often do you have six or more drinks on one occasion? Never 03/24/2025 1:57 PM EDT Kamar Hull documented as of this encounter Plan of Treatment Upcoming Encounters Date Type Department Care Team (Late st Contact Info) Description 06/09/2025 1:30 PM EST Office Visit [facility] [address] [facility] [address] [place] [address] Fanny Sadler APRN [address] [facility] [address] [place] [address] 03/16/2026 11:00 AM EDT Appointment [facility] [address] [facility] [address] [place] [address] 03/16/2026 1:00 PM EDT Office Visit [facility] [address] [facility] [address] [place] [id number] Jeffery Phillips PA-C [address] [facility] [address] [place] [address] documented as of this encounter Visit Diagnoses Not on filedocumented in this encounter Care Teams Dietary Worker Relationship Specialty Start Date End Date Guera Bermeo APRN [address] [place] [id number] PCP - General Internal Medicine 02/03/25 documented as of this encounter
[2025-05-10 11:04] LABS: Activated Partial Thrombo Time 24.7 seconds (22.8-30.6); Alanine Aminotransferase 34 U/L (12-78); Albumin Level 4.4 g/dl (3.5-5.0); Albumin/Globulin Ratio 1.2 (1.1-1.8); Alkaline Phosphatase 182 U/L (38-126); Anion Gap 12.8 mEq/L (5-15); Aspartate Amino Transferase 36 U/L (17-59); Bilirubin,Total 0.8 mg/dl (0.2-1.3); Blood Urea Nitrogen 23 mg/dl (9-20); Calcium 9.7 mg/dl (8.4-10.2); Carbon Dioxide 27 mmol/L (22.0-30.0); Chloride 105 mmol/L (98-107); Creatinine Clearance Estimated 46 mL/min (50-200); Creatinine,Serum 1.20 mg/dl (0.66-1.25); Estimated Glomerular Filt Rate 59 ml/min (>60); GFR (African American) 72 ML/MIN (>60); Globulin 3.8 g/dL (1.3-3.2); Glucose 123 mg/dl (74-100); Lipase 71 U/L (23-300); Magnesium 2.0 mg/dl (1.6-2.3); Potassium 3.8 mmoL/L (3.5-5.1); Sodium 141 mmol/L (136-145); Total Protein,Serum 8.2 g/dl (6.3-8.2)
[2025-05-10] MEDS: MORPHINE 4MG/ML SYRINGE 4 MG IV ×2 (11:04→13:33)
[2025-05-10] MEDS: METHOCARBAMOL 500MG TABLET 1000 MG PO (11:04)
[2025-05-10] MEDS: ONDANSETRON 4MG/2ML VIAL 4 MG IV (11:04)
[2025-05-10] MEDS: DEXAMETHASONE 4MG/ML 1ML VIAL 8 MG IV (11:04)
[2025-05-10 11:14] LABS: Troponin I 0.02 ng/ml (0.00-0.034)
[2025-05-10] MEDS: IOPAMIDOL-370 (76%);100ML BOTTLE 75 ML IV (11:22)
[2025-05-10] MEDS: SODIUM CHLORIDE 0.9% 10ML SYR (RAD ONLY) 10 ML IV (11:22)
[2025-05-10 12:28] LABS: NT Pro Brain Natriuretic Pep. 996 pg/mL (0-125)
[2025-05-10 12:33] LABS: Microscopic, Urine URINE MICROSCOPIC (MICROSCOPIC)
[2025-05-10 12:37] LABS: Bilirubin,Urine Negative (Negative); Color,Urine YELLOW (Yellow); Glucose,Urine (UA) 2+ (Negative); Ketones,Urine Negative (Negative); Leukocyte Esterase,Urine Negative (Negative); PH,Urine 5.5 (5.0-8.5); Protein,Urine 1+ (Negative); Specific Gravity, Urine 1.015 (1.005-1.030); Urobilinogen,Urine 0.2 EU/dl (0.2)
[2025-05-10 13:21] LABS: Hepatitis C Ab Qual. W/ RFX NEGATIVE (Negative)
--- NOTE | 2025-05-10 13:28 | PC.NURSE ---
Called [facility] to see if the patient could be transferred there but they informed me that there were no beds available. Per kath she told me to call .
--- NOTE | 2025-05-10 13:32 | PC.NURSE ---
Called [facility] to get the patient transferred. They are going to call back. Images have been powershared.
--- NOTE | 2025-05-10 13:37 | PC.NURSE ---
Jayne is on the phone with now.
[2025-05-10 13:39] LABS: Squamous Epithelial Cell,Urine Occasional #/hpf (0-5); WBC,Urine Occasional #/hpf (0-3)
--- NOTE | 2025-05-10 14:05 | PC.NURSE ---
Jayne is on the phone with now.
--- NOTE | 2025-05-10 14:16 | PC.NURSE ---
Called report to SHIRLEY Ndiaye at [facility].
== END 2025-05-10 15:20 | disposition other institution (70) ==
PROVIDERS: Nurse Practitioner; Emergency Provider Student in an Organized Health Care Education/Training Program; PCP Nurse Practitioner Family
DX: S22.41XA Multiple fractures of ribs, right side, initial encounter for closed fracture (principal); S22.079A Unspecified fracture of T9-T10 vertebra, initial encounter for closed fracture; S32.029A Unspecified fracture of second lumbar vertebra, initial encounter for closed fracture; S32.049A Unspecified fracture of fourth lumbar vertebra, initial encounter for closed fracture; R06.02 Shortness of breath; Z86.73 Personal history of transient ischemic attack (TIA), and cerebral infarction without residual deficits; W19.XXXA Unspecified fall, initial encounter
CPT/HCPCS: 71260; 72131; 74177; 80053; 81001; 83690; 83735; 83880; 84484; 85025; 85730; 86803; 87389; 93005; 96374; 96375; 96376; 99285; J1100; J2270; J2405; Q9967